=== PATIENT | male | born 1955 | race Caucasian/White ===

== ENCOUNTER 2020-01-06 17:07 | Emergency (ER) | payer MEDICARE, SELFPAY ==
[2020-01-06 17:07] VITALS: BP 153/72; PULSE 72; RESP 20; TEMP 37; O2SAT 99; BMI 42.7
--- NOTE | 2020-01-06 17:07 | ECG_ITS ---
APPROVED REPORT Exam: Resting ECG HR:64 bpm ECG Measurements Heart Rate 64 AXES MD 186 P 10 QRSd 142 QRS 124 QT 454 T -13 QTc 468 <Conclusion> Normal sinus rhythm Right bundle branch block Left posterior fascicular block Bifascicular block Abnormal ECG Electronically signed by : Estrada Gar, 01/10/2020 17:16:01
--- NOTE | 2020-01-06 17:17 | XR_ITS ---
PROCEDURE: XR CHEST 2V CLINICAL HISTORY: CP Chest pain COMPARISON: No exams were available for comparison FINDINGS: Prior median sternotomy. Minimal atelectatic or fibrotic changes in the lingula No acute bony abnormalities. IMPRESSION: The minimal atelectatic or fibrotic changes in the lingula Dictated by: Bairon Raphael MD 01/06/2020 17:52 Electronically signed by Bairon Raphael MD in [place] 01/06/2020 17:52
--- NOTE | 2020-01-06 17:26 | PC.NURSE ---
pt to rad
[2020-01-06 17:28] LABS: Basophils % 0.7 % (0.1-2.0); Chloride 100 mmol/L (98-107); Eosinophils # 0.1 K/mm3 (0.0-0.4); Eosinophils % 2.4 % (0.1-12.0); Hematocrit 40.4 % (42.0-52.0); Hemoglobin 13.6 g/dL (14.1-18.0); Lymphocytes # 1.3 K/mm3 (0.7-4.5); Lymphocytes % 22.6 % (10-50); Mean Corpuscular HGB Conc 33.6 g/dL (31.8-35.4); Mean Corpuscular Hemoglobin 30.1 pg (27.0-31.2); Mean Corpuscular Volume 89.4 fl (80-94); Mean Platelet Volume 9.1 fl (7.4-10.4); Monocytes # 0.4 K/mm3 (0.1-1.0); Monocytes % 6.6 % (1.7-9.3); Neutrophils # 3.8 K/mm3 (1.8-7.8); Neutrophils % 67.8 % (37.0-80.0); Platelet Count 176 K/mm3 (142-424); Potassium 5.1 mmoL/L (3.5-5.1); Red Blood Count 4.52 M/mm3 (4.60-6.20); Red Cell Distribution Width 16.8 % (11.5-17.5); Sodium 135 mmol/L (136-145); White Blood Count 5.6 K/mm3 (4.8-10.8)
[2020-01-06 17:31] LABS: Blood Urea Nitrogen 27 mg/dl (9-20); Creatinine Clearance Estimated 47 mL/min (50-200); Estimated Glomerular Filt Rate 38 ml/min (>60); GFR (African American) 46 ML/MIN (>60)
[2020-01-06 17:32] LABS: Anion Gap 14.1 mEq/L (5-15); Calcium 9.5 mg/dl (8.4-10.2); Carbon Dioxide 26 mmol/L (22.0-30.0); Glucose 321 mg/dl (74-100)
--- NOTE | 2020-01-06 17:32 | PC.NURSE ---
Pt returned from rad
[2020-01-06 17:45] LABS: Troponin I < 0.01 ng/ml (0.00-0.034)
[2020-01-06 18:11] VITALS: BP 130/56; PULSE 58; O2SAT 98
[2020-01-06 18:45] VITALS: BP 139/69; PULSE 60; O2SAT 97
--- NOTE | 2020-01-06 18:50 | HMH.EDCP ---
ED Disposition Clinical Impression: Chest pain Disposition: Home, Self-Care Condition on Discharge: Good Instructions: DI for Atypical Chest Pain Additional Instructions: Please follow-up with your primary care provider and disability advocate. Referrals: Bridgette Szymanski [Primary Care Provider] - - Critical Care Critical Care Time: No Attestation: On 01/06/20, the high probability of a clinically significant, sudden or life threatening deterioration of the following system(s) required my full and direct attention, intervention and personal management. The time I documented below is in addition to time spent performing reported procedures but includes the following listed in this critical care notation. Medical Decision Making - Medical Records Medical records reviewed: Yes: I reviewed the patient's medical records. - Harman Inquiry Pt receiving controlled substance: No Vital Signs: 01/06/20 17:07 01/06/20 18:11 01/06/20 18:45 Temperature 98.6 F Temperature Source Oral Pulse Rate [Right] 72 58 L 60 Respiratory Rate 20 Blood Pressure [Right Arm] 153/72 H 130/56 L 139/69 Blood Pressure Mean [Right Arm] 99 80 92 Blood Pressure Source [Right Arm] Automatic Cuff Automatic Cuff Blood Pressure Position [Right Arm] Sitting Sitting 02 Sat by Pulse Oximetry 99 98 97 Oxygen Delivery Method Room Air Room Air - Lab Data Lab results reviewed: Yes: I reviewed the patient's lab results. Lab Results 01/06/20 17:12: WBC 5.6, RBC 4.52 L, Hgb 13.6 L, Hct 40.4 L, MCV 89.4, MCH 30.1, MCHC 33.6, RDW 16.8, Plt Count 176, MPV 9.1, Neut % (Auto) 67.8, Lymph % (Auto) 22.6, [place] % (Auto) 6.6, Eos % (Auto) 2.4, Baso % (Auto) 0.7, Neut # (Auto) 3.8, Lymph # (Auto) 1.3, [place] # (Auto) 0.4, Eos # (Auto) 0.1, Baso # (Auto) 0.0 01/06/20 17:12: Sodium 135 L, Potassium 5.1, Chloride 100, Carbon Dioxide 26, Anion Gap 14.1, BUN 27 H, Creatinine 1.80 H, Estimated Creat Clear 47, Estimated GFR 38 L, Est GFR ( Amer) 46 L, Glucose 321 H, Calcium 9.5, Troponin I < 0.01 Result diagrams: 01/06/20 17:12 01/06/20 17:12 Orders (Tests/Meds): ED MEDICATIONS Discontinued Medications Generic Name Dose Route Start Last Admin Trade Name Mary PRN Reason Stop Dose Admin Aspirin 243 mg 01/06/20 17:18 01/06/20 17:22 Aspirin 81mg Chewable Tablet PO 01/06/20 17:19 243 mg ONCE ONE Administration ORDERS Category Date Time Status Troponin I Q3H Lab 01/06/20 20:30 Ordered Troponin I Q3H Lab 01/06/20 23:30 Ordered ECG Request by /Michelle Stat Y 01/06/20 17:17 Ordered - Radiology Data #1 Image(s): Chest Preliminary Findings: Normal/NAD - ECG Data Tracing #1 I reviewed this ECG and interpreted as documented below: Conduction abnormalities present: RBBB, other (Same on previous EKGs) - ROOPA Score for Non-Stemi Age of Patient: 60-69 years old Heart Rate: 70-89 bpm Systolic Blood Pressure: 120-139 mmhg Serum Creatinine: 0.80-1.19 mg/dl CHF [place] Class: I-No CHF Other Risk Factors: None Non-Stemi Risk Score: 108 Risk Stratification: 1-108 = Low Risk Medical Decision Narrative: Patient second troponin was negative he will follow-up with his disability advocate. Chest Pain HPI - General Chief Complaint: Chest Pain Stated Complaint: Chest Pain Time Seen by Provider: 01/06/20 18:50 Mode of Arrival: Ambulatory Source of Information: Patient Limitations: No Limitations Description of Symptoms (Recalled from ER Triage Doc. by RN): C/O chest pressure and palpitations that have lasted all day. Pt also have soa, nausea, and dizziness assosicated with this pressure. - History of Present Illness HPI narrative: 4-year-old gentleman comes in complaining about chest pain. He states the pain started about 3 days ago and has been intermittent. He describes the pain substernal and sharp non-radiation no shortness of breath. Patient does have an extensive cardiac history he did have a CABG done 2005 3 v
[2020-01-06 19:05] VITALS: BP 145/77; PULSE 60; O2SAT 96
[2020-01-06 19:35] LABS: Troponin I < 0.01 ng/ml (0.00-0.034)
[2020-01-06 19:45] VITALS: BP 118/53; PULSE 79; RESP 16; TEMP 36.7; O2SAT 99
== END 2020-01-06 19:48 | disposition home or self-care (01) ==
PROVIDERS: Emergency Provider Family Medicine; PCP Family Medicine
DX: R07.9 Chest pain, unspecified (principal); R42 Dizziness and giddiness; Z95.1 Presence of aortocoronary bypass graft; Z79.899 Other long term (current) drug therapy; Z88.5 Allergy status to narcotic agent
CPT/HCPCS: 71046; 80048; 84484; 85025; 93005; 99284

== ENCOUNTER 2020-03-13 11:50 | Emergency (ER) | payer MEDICARE, SELFPAY ==
[2020-03-13] VITALS (8 sets, daily range): BP systolic 120–142; BP diastolic 55–73; PULSE 58–73; RESP 18–20; TEMP 36.8; O2SAT 92–99; BMI 40.6
--- NOTE | 2020-03-13 12:07 | PC.NURSE ---
Pt urinating at this time.
[2020-03-13 12:17] LABS: Microscopic, Urine URINE MICROSCOPIC (MICROSCOPIC)
[2020-03-13 12:19] LABS: Appearance,Urine TURBID (Clear); Bilirubin,Urine Negative (Negative); Blood, Urine TRACE-L (Negative); Color,Urine YELLOW (Yellow); Glucose,Urine (UA) 3+ (Negative); Ketones,Urine Negative (Negative); Leukocyte Esterase,Urine 2+ (Negative); Nitrate,Urine POSITIVE (Negative); Protein,Urine 1+ (Negative); Specific Gravity, Urine 1.015 (1.005-1.030); Urobilinogen,Urine 0.2 EU/dl (0.2)
[2020-03-13 12:29] LABS: Bacteria,Urine 3+ /lpf; WBC,Urine TNTC #/hpf (0-3)
--- NOTE | 2020-03-13 12:33 | CT_ITS ---
PROCEDURE: CT ABDOMEN PELVIS WO CON CLINICAL INDICATION: pain Abdominal pain COMPARISON: CT LSWO CT LUMBAR SPINE W/O CONTRAST from 02/25/[address] LUMBAR SPINE W from 02/25/2016 TECHNIQUE: Axial images obtained with sagittal and coronal reformats. All CT scans at the facility use one or more dose reduction, viz: automated exposure control, ma/kV adjustment per patient size (including targeted exams where dose is matched to indication, i.e. head), or iterative reconstruction technique. FINDINGS: LOWER THORAX: There are atelectatic or fibrotic changes in the lung bases. Coronary artery calcifications are noted. ABDOMEN & PELVIS: There is mild splenomegaly at 14 cm. Hyperdensity is present in the gallbladder fossa. The patient reports having a prior cholecystectomy with surgical clips noted in the gallbladder fossa. Hyperdensity could be related to skate stones from the cholecystectomy. Please correlate with patient's surgical history. There is enlargement of the left adrenal gland at 2 cm consistent with an adenoma. There is a small fatty lesion in the right adrenal gland at 5 mm suggesting a myelolipoma. Bilateral renal artery stents are present. Unremarkable appearing pancreas. There is some lobularity of the kidneys. No renal or ureteral calculi or hydronephrosis. No intestinal obstruction or free air. No evidence of appendicitis or diverticulitis. Urinary bladder wall appears slightly thickened. There are degenerative changes in the lumbar spine. IMPRESSION: 1. No acute abdominal or pelvic findings. 2. Splenomegaly 3. There is mild urinary bladder wall thickening which may be seen with incomplete distension, chronic outflow obstruction, or cystitis. Dictated by: Bairon Raphael MD 03/14/2020 05:57 Bairon Raphael MD in [facility] 03/14/2020 05:57
--- NOTE | 2020-03-13 12:33 | CT_ITS ---
PROCEDURE: CT LUMBAR SPINE WO CON CLINICAL HISTORY: pain Low back pain COMPARISON: CT LSWO CT LUMBAR SPINE W from 02/25/2016 TECHNIQUE: Axial images obtained with sagittal and coronal reformats. All CT scans at the facility use one or more dose reduction, viz: automated exposure control, ma/kV adjustment per patient size (including targeted exams where dose is matched to indication, i.e. head), or iterative reconstruction technique. FINDINGS: There is normal alignment. There is mild multilevel lumbar spondylosis. No fracture or dislocation. T12-L1: Unremarkable. L1-L2: Mild degenerative disc disease with minimal bulging disc. L2-L3: Mild degenerative disc disease with minimal bulging disc. L3-L4: Minimal bulging disc. L4-5: Degenerate disc disease with concentric bulging disc along with facet and ligamentum hypertrophy with moderate bilateral lateral recess and foraminal narrowing. Borderline canal stenosis is present at this level. L5-S1: Degenerate disc disease with bulging disc with moderate bilateral foraminal narrowing. Incidental note is made of a fat containing right adrenal nodule at 9 mm consistent with a myelolipoma. Isodense enlargement noted of the left adrenal gland which measures 2 cm consistent with an adenoma. There is an overall increased density of the generalized bony structures nonspecific. Hyperparathyroidism or renal osteodystrophy could cause this finding. IMPRESSION: 1. Multilevel lumbar spondylosis as detailed above. 2. No acute fracture or dislocation. 3. Overall slight increase in the generalized bony density nonspecific Dictated by: Bairon Raphael MD 03/14/2020 05:51 Bairon Raphael MD in [place] 03/14/2020 05:51
--- NOTE | 2020-03-13 13:02 | HMH.EDGENADL ---
ED Disposition Clinical Impression: Acute UTI, Sciatica, left side Disposition: Home, Self-Care Condition on Discharge: Good Instructions: DI for Urinary Tract Infection (UTI) Prescriptions: cephALEXin [Keflex 500mg Cap] 500 mg PO BID 10 Days #20 cap Prescription Printed Referrals: Bridgette Szymanski [Primary Care Provider] - Adalberto Malcolm MD [Staff Physician] - - Critical Care Critical Care Time: No Attestation: On 03/13/20, the high probability of a clinically significant, sudden or life threatening deterioration of the following system(s) required my full and direct attention, intervention and personal management. The time I documented below is in addition to time spent performing reported procedures but includes the following listed in this critical care notation. Medical Decision Making - Medical Records Medical records reviewed: Yes: I reviewed the patient's medical records. - Harman Inquiry Pt receiving controlled substance: Yes Harman was queried for this patient: No Risks and benefits of using a controlled substance: were discussed with pt by me Vital Signs: 03/13/20 11:53 03/13/20 12:30 03/13/20 13:30 Temperature 98.3 F Temperature Source Oral Pulse Rate [Left Radial] 73 64 68 Respiratory Rate 18 Blood Pressure [Right Arm] 142/73 H 120/58 L Blood Pressure Mean [Right Arm] 96 78 Blood Pressure Source [Right Arm] Automatic Cuff Automatic Cuff Blood Pressure Position [Right Arm] Sitting Sitting 02 Sat by Pulse Oximetry 99 92 L 97 Oxygen Delivery Method Room Air Room Air Room Air 03/13/20 14:02 03/13/20 14:16 03/13/20 14:30 Temperature Temperature Source Pulse Rate [Left Radial] 60 58 L 62 Respiratory Rate 20 Blood Pressure [Right Arm] 127/55 L 127/55 L 124/56 L Blood Pressure Mean [Right Arm] 79 79 78 Blood Pressure Source [Right Arm] Automatic Cuff Automatic Cuff Automatic Cuff Blood Pressure Position [Right Arm] Sitting Sitting Sitting 02 Sat by Pulse Oximetry 94 L 96 96 Oxygen Delivery Method Room Air Room Air Room Air - Lab Data Lab Results 03/13/20 12:15: Urine Color Yellow, Urine Appearance Turbid, Urine pH 6.0, Ur Specific [place] 1.015, Urine Protein 1+, Urine Glucose (UA) 3+, Urine Ketones Negative, Urine Blood Trace-l, Urine Nitrate Positive, Urine Bilirubin Negative, Urine Urobilinogen 0.2, Ur Leukocyte Esterase 2+ A, Urine WBC Tntc, Urine Bacteria 3+ 03/13/20 12:47: WBC 5.3, RBC 4.05 L, Hgb 12.1 L, Hct 38.3 L, MCV 94.7 H, MCH 30.0, MCHC 31.7 L, RDW 16.0, Plt Count 164, MPV 9.0, Neut % (Auto) 74.4, Lymph % (Auto) 16.8, [place] % (Auto) 6.1, Eos % (Auto) 2.0, Baso % (Auto) 0.6, Neut # (Auto) 3.9, Lymph # (Auto) 0.9, [place] # (Auto) 0.3, Eos # (Auto) 0.1, Baso # (Auto) 0.0 03/13/20 12:47: Sodium 138, Potassium 4.6, Chloride 105, Carbon Dioxide 25, Anion Gap 12.6, BUN 21 H, Creatinine 1.30 H, Estimated Creat Clear 113, Estimated GFR 56 L, Est GFR ( Amer) 68, Glucose 302 H, Calcium 8.9 Result diagrams: 03/13/20 12:47 03/13/20 12:47 Orders (Tests/Meds): ED MEDICATIONS Discontinued Medications Generic Name Dose Route Start Last Admin Trade Name Mary PRN Reason Stop Dose Admin Ceftriaxone Sodium 1 gm/ 50 mls @ 100 mls/hr 03/13/20 14:40 03/13/20 14:46 Sodium Chloride IV 03/13/20 15:09 100 mls/hr ONCE ONE Administration Protocol Morphine Sulfate 4 mg 03/13/20 12:32 03/13/20 13:29 Morphine 4mg/Ml Syringe IV 03/13/20 12:33 4 mg ONCE ONE Administration Ondansetron HCl 4 mg 03/13/20 12:32 03/13/20 13:29 Zofran 4mg/2ml Vial IV 03/13/20 12:33 4 mg ONCE ONE Administration ORDERS Category Date Time Status CT abdomen pelvis wo con Stat Cat Scan 03/13/20 12:[address] lumbar spine wo con Stat Cat Scan 03/13/20 12:33 Taken Urine Culture Stat Micro 03/13/20 12:15 Received - CT Data CT Scan: Abdomen, Pelvis, L-Spine Time Received: 15:12 Findings Narrative: CT of abdomen/pelvis did not show any acu
[2020-03-13 13:19] LABS: Basophils % 0.6 % (0.1-2.0); Eosinophils # 0.1 K/mm3 (0.0-0.4); Hematocrit 38.3 % (42.0-52.0); Hemoglobin 12.1 g/dL (14.1-18.0); Lymphocytes # 0.9 K/mm3 (0.7-4.5); Lymphocytes % 16.8 % (10-50); Mean Corpuscular HGB Conc 31.7 g/dL (31.8-35.4); Mean Corpuscular Volume 94.7 fl (80-94); Monocytes # 0.3 K/mm3 (0.1-1.0); Monocytes % 6.1 % (1.7-9.3); Neutrophils # 3.9 K/mm3 (1.8-7.8); Neutrophils % 74.4 % (37.0-80.0); Platelet Count 164 K/mm3 (142-424); Red Blood Count 4.05 M/mm3 (4.60-6.20); White Blood Count 5.3 K/mm3 (4.8-10.8)
[2020-03-13 13:24] LABS: Chloride 105 mmol/L (98-107); Potassium 4.6 mmoL/L (3.5-5.1); Sodium 138 mmol/L (136-145)
[2020-03-13 13:27] LABS: Anion Gap 12.6 mEq/L (5-15); Blood Urea Nitrogen 21 mg/dl (9-20); Calcium 8.9 mg/dl (8.4-10.2); Carbon Dioxide 25 mmol/L (22.0-30.0); Creatinine Clearance Estimated 113 mL/min (50-200); Estimated Glomerular Filt Rate 56 ml/min (>60); GFR (African American) 68 ML/MIN (>60); Glucose 302 mg/dl (74-100)
== END 2020-03-13 15:22 | disposition home or self-care (01) ==
PROVIDERS: Emergency Provider Emergency Medicine; PCP Family Medicine
DX: N30.00 Acute cystitis without hematuria (principal); M54.32 Sciatica, left side; E11.65 Type 2 diabetes mellitus with hyperglycemia; Z79.4 Long term (current) use of insulin; Z88.8 Allergy status to other drugs, medicaments and biological substances; Z79.899 Other long term (current) drug therapy
CPT/HCPCS: 72131; 74176; 80048; 81001; 85025; 87086; 87088; 87186; 96365; 96375; 99284; J2405

== ENCOUNTER → 2020-05-12 16:28 | Outpatient (CLI) | payer MEDICARE, SELFPAY ==
[2020-05-12 18:26] LABS: Prostate Specific Ag Screen 0.1 ng/ml (0.0-4.0)
== END ==
PROVIDERS: Visit Provider Urology
DX: Z12.5 Encounter for screening for malignant neoplasm of prostate (principal)
CPT/HCPCS: 36415; G0103

== ENCOUNTER 2020-06-05 13:39 | Emergency (ER) | payer MEDICARE, SELFPAY ==
--- NOTE | 2020-06-05 13:37 | ECG_ITS ---
APPROVED REPORT Exam: Resting ECG HR:65 bpm ECG Measurements Heart Rate 65 AXES DC 182 P 11 QRSd 128 QRS 118 QT 454 T 28 QTc 472 Conclusion Sinus rhythm with premature atrial complexes with aberrant conduction Right bundle branch block Abnormal ECG Electronically signed by : Estrada Gar, 06/06/2020 07:31:23
[2020-06-05 13:39] VITALS: BP 169/76; PULSE 69; RESP 14; TEMP 36.6; O2SAT 99; BMI 43.1
[2020-06-05 13:40] VITALS: BMI 43.1
--- NOTE | 2020-06-05 13:41 | XR_ITS ---
PROCEDURE: XR CHEST 2V CLINICAL HISTORY: chest pain COMPARISON: CR XR CHEST 2V from 01/06/[address] ABDOMEN PELVIS WO CON from 03/13/2020 FINDINGS: Prior CABG. Normal heart size. There is increased density in the right lung base medially. This was present on 01/06/2020 and may represent a prominent pericardial fat pad as noted on a prior abdomen CT which cover this region. No lobar consolidation or collapse. No acute bony findings. IMPRESSION: As above, no acute finding Dictated by: Bairon Raphael MD 06/05/2020 14:37 Bairon Raphael MD in [place] 06/05/2020 14:37
--- NOTE | 2020-06-05 13:44 | HMH.EDGENADL ---
ED Disposition Clinical Impression: Chest pain Qualifiers: Chest pain type: unspecified Qualified Code(s): R07.9 - Chest pain, unspecified Disposition: Home, Self-Care Condition on Discharge: Good - Critical Care Critical Care Time: No Attestation: On , the high probability of a clinically significant, sudden or life threatening deterioration of the following system(s) required my full and direct attention, intervention and personal management. The time I documented below is in addition to time spent performing reported procedures but includes the following listed in this critical care notation. Medical Decision Making - Medical Records Medical records reviewed: Yes: I reviewed the patient's medical records. - Harman Inquiry Pt receiving controlled substance: No Vital Signs: 06/05/20 13:39 06/05/20 14:01 06/05/20 14:09 Temperature 97.8 F Temperature Source Oral Pulse Rate [Left Radial] 69 63 63 Respiratory Rate 14 16 Blood Pressure [Right Arm] 169/76 H 144/70 H 144/70 H Blood Pressure Mean [Right Arm] 107 94 94 Blood Pressure Source [Right Arm] Automatic Cuff Automatic Cuff Automatic Cuff Blood Pressure Position [Right Arm] Sitting Sitting Sitting 02 Sat by Pulse Oximetry 99 95 95 Oxygen Delivery Method Room Air Room Air Room Air 06/05/20 16:33 06/05/20 17:50 Temperature Temperature Source Pulse Rate [Left Radial] 60 59 L Respiratory Rate 60 H Blood Pressure [Right Arm] 153/70 H 154/69 H Blood Pressure Mean [Right Arm] 97 97 Blood Pressure Source [Right Arm] Automatic Cuff Automatic Cuff Blood Pressure Position [Right Arm] Sitting 02 Sat by Pulse Oximetry 98 96 Oxygen Delivery Method Room Air Room Air - Lab Data Lab results reviewed: Yes: I reviewed the patient's lab results. Lab Results 06/05/20 13:48: WBC 5.3, RBC 4.25 L, Hgb 12.0 L, Hct 38.8 L, MCV 91.3, MCH 28.3, MCHC 31.0 L, RDW 16.8, Plt Count 210, MPV 8.6, Neut % (Auto) 71.5, Lymph % (Auto) 19.9, [place] % (Auto) 5.7, Eos % (Auto) 2.3, Baso % (Auto) 0.6, Neut # (Auto) 3.8, Lymph # (Auto) 1.1, [place] # (Auto) 0.3, Eos # (Auto) 0.1, Baso # (Auto) 0.0 06/05/20 13:48: Sodium 137, Potassium 4.5, Chloride 104, Carbon Dioxide 27, Anion Gap 10.5, BUN 25 H, Creatinine 1.30 H, Estimated Creat Clear 65, Estimated GFR 56 L, Est GFR ( Amer) 68, Glucose 253 H, Calcium 8.8, Troponin I < 0.01 06/05/20 16:57: Troponin I < 0.01 06/05/20 16:57: Total Bilirubin 0.8, Direct Bilirubin 0.3, Conjugated Bilirubin 0.0, Indirect Bilirubin 0.5, Unconjugated Bilirubin 0.5, AST 31, ALT 17, Alkaline Phosphatase 82, Total Protein 6.9, Albumin 3.8 Result diagrams: 06/05/20 13:48 06/05/20 13:48 Orders (Tests/Meds): ED MEDICATIONS Discontinued Medications Generic Name Dose Route Start Last Admin Trade Name Freq PRN Reason Stop Dose Admin Aspirin 324 mg 06/05/20 13:40 06/05/20 14:21 Aspirin 81mg Chewable Tablet PO 06/05/20 13:41 Not Given ONCE ONE Aspirin 243 mg 06/05/20 14:20 06/05/20 14:21 Aspirin 81mg Chewable Tablet PO 06/05/20 14:21 243 mg ONCE ONE Administration ORDERS Category Date Time Status Troponin I Q3H Lab 06/05/20 19:45 Ordered Medical Decision Narrative: 64-year-old male with cardiac history presenting with chest pain. Nontoxic, afebrile, hemodynamically stable, oxygenating well on room air. EKG without acute arrhythmia or ischemia. Chest x-ray negative for acute disease. Initial and repeat troponin were undetectable. White blood cell count, glucose, electrolytes, transaminases are nonactionable. Patient asymptomatic at discharge. Will follow up with PCP General Adult HPI - General Stated complaint: Chest pain Time Seen by Provider: 06/05/20 13:44 - History of Present Illness HPI narrative: This is a 64-year-old male with an extensive cardiac history status post CABG x3 and subsequent blocked vessel presenting with intermittent chest pain and palpitations, particularly worse today and ma
--- NOTE | 2020-06-05 14:00 | PC.NURSE ---
Pt to radiology
[2020-06-05 14:01] VITALS: BP 144/70; PULSE 63; O2SAT 95
[2020-06-05 14:09] VITALS: BP 144/70; PULSE 63; RESP 16; O2SAT 95
[2020-06-05 14:53] LABS: Chloride 104 mmol/L (98-107); Potassium 4.5 mmoL/L (3.5-5.1); Sodium 137 mmol/L (136-145)
[2020-06-05 14:55] LABS: Basophils % 0.6 % (0.1-2.0); Eosinophils # 0.1 K/mm3 (0.0-0.4); Eosinophils % 2.3 % (0.1-12.0); Hematocrit 38.8 % (42.0-52.0); Lymphocytes # 1.1 K/mm3 (0.7-4.5); Lymphocytes % 19.9 % (10-50); Mean Corpuscular Hemoglobin 28.3 pg (27.0-31.2); Mean Corpuscular Volume 91.3 fl (80-94); Mean Platelet Volume 8.6 fl (7.4-10.4); Monocytes # 0.3 K/mm3 (0.1-1.0); Monocytes % 5.7 % (1.7-9.3); Neutrophils # 3.8 K/mm3 (1.8-7.8); Neutrophils % 71.5 % (37.0-80.0); Platelet Count 210 K/mm3 (142-424); Red Blood Count 4.25 M/mm3 (4.60-6.20); Red Cell Distribution Width 16.8 % (11.5-17.5); White Blood Count 5.3 K/mm3 (4.8-10.8)
[2020-06-05 14:56] LABS: Blood Urea Nitrogen 25 mg/dl (9-20); Creatinine Clearance Estimated 65 mL/min (50-200); Estimated Glomerular Filt Rate 56 ml/min (>60); GFR (African American) 68 ML/MIN (>60)
[2020-06-05 14:57] LABS: Anion Gap 10.5 mEq/L (5-15); Calcium 8.8 mg/dl (8.4-10.2); Carbon Dioxide 27 mmol/L (22.0-30.0); Glucose 253 mg/dl (74-100)
[2020-06-05 15:13] LABS: Troponin I < 0.01 ng/ml (0.00-0.034)
[2020-06-05 16:33] VITALS: BP 153/70; PULSE 60; O2SAT 98
--- NOTE | 2020-06-05 16:34 | PC.NURSE ---
Pt provided a blanket at this time. States that he feels like there is a fluttering in his chest. MD aware. Will continue to monitor.
--- NOTE | 2020-06-05 16:42 | PC.NURSE ---
Lab states that they are running the liver panel at this time and they will be down to re draw troponin
[2020-06-05 17:50] VITALS: BP 154/69; PULSE 59; RESP 60; O2SAT 96
[2020-06-05 17:53] LABS: Troponin I < 0.01 ng/ml (0.00-0.034)
[2020-06-05 18:06] LABS: Alanine Aminotransferase 17 U/L (12-78); Aspartate Amino Transferase 31 U/L (17-59); Bilirubin,Unconjugated 0.5 mg/dL (0.0-1.1)
[2020-06-05 18:07] LABS: Albumin Level 3.8 g/dl (3.5-5.0); Alkaline Phosphatase 82 U/L (38-126); Bilirubin,Direct 0.3 mg/dl (0.0-0.4); Bilirubin,Indirect 0.5 mg/dL (0.0-0.9); Bilirubin,Total 0.8 mg/dl (0.2-1.3); Total Protein,Serum 6.9 g/dl (6.3-8.2)
--- NOTE | 2020-06-05 18:35 | PC.NURSE ---
MD speaking with pt at this time.
[2020-06-05 18:46] VITALS: BP 136/64; PULSE 60; RESP 19; TEMP 36.6; O2SAT 98
== END 2020-06-05 18:47 | disposition home or self-care (01) ==
PROVIDERS: Emergency Provider Physician Assistant; PCP Family Medicine
DX: R07.9 Chest pain, unspecified (principal); E11.65 Type 2 diabetes mellitus with hyperglycemia; I25.10 Atherosclerotic heart disease of native coronary artery without angina pectoris; Z95.1 Presence of aortocoronary bypass graft; I10 Essential (primary) hypertension; E78.5 Hyperlipidemia, unspecified; G45.8 Other transient cerebral ischemic attacks and related syndromes; Z79.899 Other long term (current) drug therapy
CPT/HCPCS: 36415; 71046; 80048; 80076; 84484; 85025; 93005; 99283

== ENCOUNTER → 2021-01-11 14:03 | Outpatient (CLI) | payer MEDICARE, SELFPAY ==
[2021-01-11 14:23] LABS: Basophils # 0.1 K/mm3 (0-0.2); Basophils % 0.7 % (0.1-2.0); Eosinophils # 0.2 K/mm3 (0.0-0.4); Eosinophils % 2.6 % (0.1-12.0); Hematocrit 38.9 % (42.0-52.0); Lymphocytes % 15.4 % (10-50); Mean Corpuscular HGB Conc 33.4 g/dL (31.8-35.4); Mean Corpuscular Hemoglobin 28.9 pg (27.0-31.2); Mean Corpuscular Volume 86.6 fl (80-94); Mean Platelet Volume 8.9 fl (7.4-10.4); Monocytes # 0.3 K/mm3 (0.1-1.0); Monocytes % 4.7 % (1.7-9.3); Neutrophils # 5.1 K/mm3 (1.8-7.8); Neutrophils % 76.6 % (37.0-80.0); Platelet Count 187 K/mm3 (142-424); Red Blood Count 4.49 M/mm3 (4.60-6.20); Red Cell Distribution Width 16.4 % (11.5-17.5); White Blood Count 6.7 K/mm3 (4.8-10.8)
[2021-01-11 14:33] LABS: Alanine Aminotransferase 17 U/L (12-78); Albumin Level 4.1 g/dl (3.5-5.0); Albumin/Globulin Ratio 1.4 (1.1-1.8); Alkaline Phosphatase 113 U/L (38-126); Anion Gap 16.6 mEq/L (5-15); Aspartate Amino Transferase 28 U/L (17-59); Bilirubin,Total 1.4 mg/dl (0.2-1.3); Blood Urea Nitrogen 21 mg/dl (9-20); Carbon Dioxide 25 mmol/L (22.0-30.0); Chloride 102 mmol/L (98-107); Cholesterol 124 mg/dl (140-200); Estimated Glomerular Filt Rate 47 ml/min (>60); GFR (African American) 57 ML/MIN (>60); Globulin 2.9 g/dL (1.3-3.2); Glucose 218 mg/dl (74-100); HDL Cholesterol 25 mg/dl (40-60); Potassium 4.6 mmoL/L (3.5-5.1); Sodium 139 mmol/L (136-145); Triglycerides 169 mg/dl (30-150); VLDL Cholesterol 34 mg/dL (0-40)
[2021-01-11 14:44] LABS: Direct LDL Cholesterol 71.26 mg/dL (100-129)
[2021-01-11 14:45] LABS: 25-OH Vitamin D, Total 19.3 ng/mL (30-100)
[2021-01-11 14:55] LABS: Free T4 (Free Thyroxine) 1.21 ng/dl (0.78-2.19)
[2021-01-11 15:06] LABS: Hemoglobin A1C 6.5 % (4.0-6.0)
[2021-01-11 15:10] LABS: Thyroid Stimulating Hormone 2.05 uIU/mL (0.465-4.68)
== END ==
PROVIDERS: Visit Provider Physician Assistant
DX: E11.9 Type 2 diabetes mellitus without complications (principal); E55.9 Vitamin D deficiency, unspecified; R07.9 Chest pain, unspecified; R53.83 Other fatigue; Z79.4 Long term (current) use of insulin
CPT/HCPCS: 80053; 80061; 82043; 82306; 83036; 84439; 84443; 85025

== ENCOUNTER 2021-04-16 13:31 | Emergency (ER) | payer MEDICARE, SELFPAY ==
[2021-04-16 13:44] VITALS: BP 140/68; PULSE 76; RESP 20; TEMP 36.6; O2SAT 97; BMI 42.3
[2021-04-16 14:55] VITALS: BP 140/68; PULSE 76; RESP 20; TEMP 36.6; O2SAT 97; BMI 42.3
--- NOTE | 2021-04-16 15:44 | HMH.EDUTC ---
[facility] Disposition Clinical Impression: Sciatic leg pain Disposition: Home, Self-Care Condition on Discharge: Good Instructions: Sciatica, DI for Sciatica, DI for Back Pain With Sciatica Additional Instructions: *Ibuprofen sol 6 hours with meal as needed for pain/inflammation if you can take it *Not additional anti-inflammatory like motrin, aleve, advil with the above amount of ibuprofen. You can still take Tylenol every 4 hours as needed if you need something else for pain *Ice 20 minutes every 2 hours for the first 48 hours after the initial injury followed by moist heat every 20 minutes 3-4 times a day to affected area *Muscle relaxer every 12 hours as needed for muscle spasms but remember, it WILL cause drowsiness You cannot take it and drive, operate machinery or care for small children. *Keep this area active, no movement leads to more stiffness, However take it easy and avoid heavy lifting pushing or pulling *Follow up with you family doctor if no improvement for further treatment Return if needed Straight to ER if any life threatening symptoms Prescriptions: methocarbamoL [Methocarbamol 500mg Tablet] 500 mg PO BID PRN 30 Days #60 tab PRN Reason: Muscle Spasm Transmission Status: Received by [id number] Referrals: Elaina Carvalho PA [Primary Care Provider] - As needed Time of Disposition: 16:06 Medical Decision Making - Harman Inquiry Pt receiving controlled substance: No Harman was queried for this patient: No Vital Signs: 04/16/21 13:44 04/16/21 14:55 04/16/21 16:05 Temperature 97.8 F 97.8 F 97.8 F Temperature Source Oral Oral Pulse Rate 76 Pulse Rate [Left Radial] 76 76 Respiratory Rate 20 20 20 Blood Pressure 140/68 Blood Pressure [Right Arm] 140/68 140/68 Blood Pressure Mean [Right Arm] 92 92 Blood Pressure Source [Right Arm] Automatic Cuff Automatic Cuff Blood Pressure Position [Right Arm] Sitting Sitting 02 Sat by Pulse Oximetry 97 97 Oxygen Delivery Method Room Air Room Air Orders (Tests/Meds): ED MEDICATIONS Discontinued Medications Generic Name Dose Route Start Last Admin Trade Name Freq PRN Reason Stop Dose Admin Ketorolac Tromethamine 30 mg 04/16/21 15:56 04/16/21 16:04 Ketorolac 60mg/2ml Vial IM 04/16/21 15:57 30 mg ONCE ONE Administration Methylprednisolone Sodium Succinate 125 mg 04/16/21 15:56 04/16/21 16:04 Methylprednisolone Sod Succ 125mg Vial IM 04/16/21 15:57 125 mg ONCE ONE Administration Medical Decision Narrative: Discussed xray due to patient age and complaints Patient declined states that he just had some xrays and CT scan not too long ago and did not want to have them done today Medication discussed with Pharmacy [facility] HPI - General Stated complaint: lft hip and leg pain Time Seen by Provider: 04/16/21 15:44 Mode of Arrival: Ambulatory Source of Information: Patient Limitations: No Limitations Description of Symptoms (Recalled from Triage Doc. by RN): PATIENT C/O SEVERE PAIN TO LEFT HIP THAT RADIATES DOWN LEG THAT STARTED YESTERDAY. HE SAYS HE BELIEVES IT IS SCIATICA HEENT Symptoms (Recalled from RN notes): No Resp Symptoms (Recalled from RN notes): No Skin Symptoms (Recalled from RN notes): No MS Symptoms (Recalled from RN notes): Yes Functional Status (Recalled from RN notes): WNL - History of Present Illness Provider Complaint: Patient states that he has a history of sciatica States that yesterday he started with the pain in his left hip/buttock area that radiates down in to his left upper leg and hurts when he walks or tries to sit on that side States that feels like it did when his sciatica flares up Denies loss of control of bowel or bladder - Related Data Home Medications Medication Instructions Recorded Confirmed Amlodipine Besylate [Amlodipine 5 mg PO DAILY 06/19/19 02/08/21 5mg tab] Isosorbide Dinitrate 30 mg PO TID 06/19/19 02/08/21 Levothyroxine Sodium 75 mcg PO DAILY 06/19/19
[2021-04-16 16:05] VITALS: BP 140/68; PULSE 76; RESP 20; TEMP 36.6; O2SAT 97
== END 2021-04-16 16:25 | disposition home or self-care (01) ==
LOC: ER 13:48 → UTC 13:48
PROVIDERS: Emergency Provider Nurse Practitioner; PCP Physician Assistant
DX: M54.42 Lumbago with sciatica, left side (principal); I50.9 Heart failure, unspecified; I25.10 Atherosclerotic heart disease of native coronary artery without angina pectoris; E11.9 Type 2 diabetes mellitus without complications; E78.5 Hyperlipidemia, unspecified; I10 Essential (primary) hypertension; Z79.899 Other long term (current) drug therapy
CPT/HCPCS: G0463; 96372; 99202

== ENCOUNTER 2021-05-12 10:25 | Emergency (ER) | payer MEDICARE, SELFPAY ==
[2021-05-12 10:33] VITALS: PULSE 86; RESP 20; TEMP 36.8; O2SAT 99; BMI 42.7
--- NOTE | 2021-05-12 10:44 | XR_ITS ---
PROCEDURE INFORMATION: Exam: XR Left Hip Exam date and time: 05/12/2021 10:44 AM Age: 65 years old Clinical indication: Hip pain; Left hip; Additional info: Pain- no injury TECHNIQUE: Imaging protocol: XR Left hip. Views: 2 or 3 views hip with pelvis when performed. COMPARISON: CT ABDOMEN PELVIS WO CON 03/13/2020 12:54 PM FINDINGS: Bones/joints: No acute fracture or malalignment. Mild degenerative changes of the bilateral hips. Soft tissues: Unremarkable. IMPRESSION: No acute fracture or malalignment.
[2021-05-12 10:46] VITALS: BP 175/77; PULSE 87; RESP 22; TEMP 36.9; O2SAT 97; BMI 42.7
--- NOTE | 2021-05-12 11:45 | HMH.EDUTC ---
[facility] Disposition Clinical Impression: Left hip pain Osteoarthritis of left hip Qualifiers: Osteoarthritis type: unspecified Qualified Code(s): M16.12 - Unilateral primary osteoarthritis, left hip Radiculopathy Qualifiers: Spinal region: unspecified Qualified Code(s): M54.10 - Radiculopathy, site unspecified Disposition: Home, Self-Care Condition on Discharge: Good Instructions: Osteoarthritis, DI for Osteoarthritis, DI for Hip Pain Additional Instructions: Rest the extremity, Elevate the extremity as tolerated while you are resting. Take the steroids as directed. Don't start them until tomorrow since you had the shot here. Watch your blood sugars closely and follow your diabetic diet closely while you are on it. Follow up with Dr. Hunt (orthopedics). I put in a referral but you need to call his office and schedule an appointment. You could also follow up the orthopedic doctor that you are already established with. If you do go see that one, you should get a copy of your x-ray from medical records and take it with you because they may not be able to look up our x-ray images. Follow up with your regular doctor. GO TO THE ER FOR ANY WORSENING SYMPTOMS Prescriptions: methylPREDNISolone [Medrol] 4 mg PO DIRECTED 6 Days #21 packet Transmission Status: Received by [id number] Referrals: Elaina Carvalho PA [Primary Care Provider] - Imtiaz Hunt MD [Staff Physician] - Time of Disposition: 11:53 Medical Decision Making - Medical Records Medical records reviewed: No: I reviewed the patient's medical records. - Harman Inquiry Pt receiving controlled substance: No Vital Signs: 05/12/21 10:33 05/12/21 10:46 05/12/21 12:15 Temperature 98.2 F 98.4 F 98 F Temperature Source Oral Oral Pulse Rate 86 Pulse Rate [Left Radial] 86 87 Respiratory Rate 20 22 16 Blood Pressure 134/72 Blood Pressure [Right Arm] 175/77 H Blood Pressure Mean [Right Arm] 109 02 Sat by Pulse Oximetry 99 97 Oxygen Delivery Method Room Air Orders (Tests/Meds): ED MEDICATIONS Discontinued Medications Generic Name Dose Route Start Last Admin Trade Name Freq PRN Reason Stop Dose Admin Ketorolac Tromethamine 30 mg 05/12/21 11:48 05/12/21 12:03 Ketorolac 60mg/2ml Vial IM 05/12/21 11:49 30 mg ONCE ONE Administration Methylprednisolone Sodium Succinate 125 mg 05/12/21 11:48 05/12/21 12:03 Methylprednisolone Sod Succ 125mg Vial IM 05/12/21 11:49 125 mg ONCE ONE Administration - Radiology Data #1 Image(s): Hip Image Reviewed: Yes I reviewed the patient's radiology image, Yes I have reviewed radiologist's interpretation Preliminary Findings: Normal/NAD, No Fracture Seen PROCEDURE INFORMATION: Exam: XR Left Hip Exam date and time: 05/12/2021 10:44 AM Age: 65 years old Clinical indication: Hip pain; Left hip; Additional info: Pain- no injury TECHNIQUE: Imaging protocol: XR Left hip. Views: 2 or 3 views hip with pelvis when performed. COMPARISON: CT ABDOMEN PELVIS WO CON 03/13/2020 12:54 PM FINDINGS: Bones/joints: No acute fracture or malalignment. Mild degenerative changes of the bilateral hips. Soft tissues: Unremarkable. IMPRESSION: No acute fracture or malalignment. [facility] HPI - General Stated complaint: left hip pain, no accident Time Seen by Provider: 05/12/21 11:45 Mode of Arrival: Ambulatory Source of Information: Patient Limitations: No Limitations Description of Symptoms (Recalled from Triage Doc. by RN): pt c/o severe pain in his L hip. The pain is sharp in nature. pain does not radiate or feel like sciatica according to the pt. HEENT Symptoms (Recalled from RN notes): No Resp Symptoms (Recalled from RN notes): No Skin Symptoms (Recalled from RN notes): No MS Symptoms (Recalled from RN notes): Yes (L hip pain) Functional Status (Recalled from RN notes)
[2021-05-12 12:15] VITALS: BP 134/72; PULSE 86; RESP 16; TEMP 36.6
== END 2021-05-12 12:18 | disposition home or self-care (01) ==
PROVIDERS: Emergency Provider Nurse Practitioner Family; PCP Physician Assistant
DX: M16.12 Unilateral primary osteoarthritis, left hip (principal); M54.10 Radiculopathy, site unspecified; E11.9 Type 2 diabetes mellitus without complications; I10 Essential (primary) hypertension; E78.5 Hyperlipidemia, unspecified; I50.9 Heart failure, unspecified; Z79.899 Other long term (current) drug therapy
CPT/HCPCS: 73502; 96372; 99202; G0463

== ENCOUNTER → 2021-05-14 14:32 | Outpatient (CLI) | payer MEDICARE, SELFPAY ==
[2021-05-14 17:35] LABS: Prostate Specific Ag Screen 0.4 ng/ml (0.0-4.0)
== END ==
PROVIDERS: Visit Provider Urology
DX: Z12.5 Encounter for screening for malignant neoplasm of prostate (principal); N39.0 Urinary tract infection, site not specified; B96.1 Klebsiella pneumoniae [K. pneumoniae] as the cause of diseases classified elsewhere
CPT/HCPCS: 36415; 87086; 87088; 87186; G0103

== ENCOUNTER → 2021-05-28 15:55 | Outpatient (CLI) | payer MEDICARE, SELFPAY | PROVIDERS: PCP Physician Assistant; Visit Provider Nurse Practitioner | DX: U07.1 COVID-19 (principal) | CPT/HCPCS: C9803; U0003; U0005 ==

== ENCOUNTER 2021-06-02 13:40 | Emergency (ER) | payer MEDICARE, SELFPAY ==
[2021-06-02 13:41] VITALS: BP 142/64; PULSE 73; RESP 20; TEMP 36.6; O2SAT 92; BMI 41.3
--- NOTE | 2021-06-02 14:02 | XR_ITS ---
PROCEDURE INFORMATION: Exam: XR Chest Exam date and time: 06/02/2021 2:02 PM Age: 65 years old Clinical indication: Shortness of breath; Additional info: SOA, weakness, covid 19 TECHNIQUE: Imaging protocol: XR of the chest. Views: 1 view. COMPARISON: CR XR CHEST 2V 06/05/2020 1:52 PM FINDINGS: Tubes, catheters and devices: There are sternal wires consistent with previous sternotomy incision. Lungs: Diffuse patchy airspace opacities noted throughout the lungs bilaterally. Commonly reported imaging features of COVID-19 pneumonia are present. Pleural spaces: Unremarkable. No pleural effusion. No pneumothorax. Heart/Mediastinum: Heart demonstrates mild diffuse enlargement. Bones/joints: Unremarkable. IMPRESSION: 1. Diffuse patchy airspace opacities noted throughout the lungs bilaterally. 2. Commonly reported imaging features of COVID-19 pneumonia are present. Other processes such as influenza pneumonia and organizing pneumonia, as can be seen with drug toxicity and connective tissue disease, can cause a similar imaging pattern. (Reference: Scott) 3. Heart demonstrates mild diffuse enlargement. REFERENCES: Scott Thomas et al., Rad[employer] Society [place] Expert Consensus Statement on Reporting Chest CT Findings Related to COVID-19. Endorsed by the Society of Thoracic Radiology, the [place] [employer], and RSNA. Published September 29, 2019.
--- NOTE | 2021-06-02 14:28 | HMH.EDGENADL ---
ED Disposition Clinical Impression: COVID-19, Shortness of breath Disposition: Home, Self-Care Condition on Discharge: Good Instructions: How to Care for Someone with COVID-19 Additional Instructions: Home medications as directed. Add aspirin 81 mg to her daily medication. Return to emergency department on Friday at 8 AM for antibody infusion. Return sooner for severe shortness of breath, chest pain. Referrals: Elaina Carvalho PA [Primary Care Provider] - 3 days Time of Disposition: 16:12 - Critical Care Critical Care Time: No Attestation: On 06/02/21, the high probability of a clinically significant, sudden or life threatening deterioration of the following system(s) required my full and direct attention, intervention and personal management. The time I documented below is in addition to time spent performing reported procedures but includes the following listed in this critical care notation. Medical Decision Making - Medical Records Medical records reviewed: Yes: I reviewed the patient's medical records. - Harman Inquiry Pt receiving controlled substance: No Vital Signs: 06/02/21 13:41 06/02/21 15:32 Temperature 97.9 F Temperature Source Oral Pulse Rate 67 Pulse Rate [Left Radial] 73 Respiratory Rate 20 18 Blood Pressure 136/63 Blood Pressure [Left Arm] 142/64 H Blood Pressure Mean [Left Arm] 90 Blood Pressure Source [Left Arm] Automatic Cuff Blood Pressure Position Sitting Blood Pressure Position [Left Arm] Sitting 02 Sat by Pulse Oximetry 92 L 92 L Oxygen Delivery Method Room Air Room Air - Lab Data Lab results reviewed: Yes: I reviewed the patient's lab results. Lab Results 06/02/21 13:50: WBC 2.4 L, RBC 4.37 L, Hgb 12.4 L, Hct 38.3 L, MCV 87.8, MCH 28.5, MCHC 32.4, RDW 17.4, Plt Count 105 L, MPV 9.6, Neut % (Auto) 63.8, Lymph % (Auto) 24.4, Hutchinson % (Auto) 9.1, Eos % (Auto) 2.2, Baso % (Auto) 0.6, Neut # (Auto) 1.5 L, Lymph # (Auto) 0.6 L, Hutch[place] # (Auto) 0.2, Eos # (Auto) 0.1, Baso # (Auto) 0.0 06/02/21 13:50: Sodium 137, Potassium 4.4, Chloride 101, Carbon Dioxide 29, Anion Gap 11.4, BUN 21 H, Creatinine 1.70 H, Estimated Creat Clear 49, Estimated GFR 41 L, Est GFR ( Amer) 50 L, Glucose 220 H, Calcium 8.5, Total Bilirubin 0.9, AST 35, ALT 12, Alkaline Phosphatase 93, Troponin I < 0.01, Total Protein 6.3, Albumin 3.4 L, Globulin 2.9, Albumin/Globulin Ratio 1.2 06/02/21 13:50: NT-Pro-B Natriuret Pep 316 H Result diagrams: 06/02/21 13:50 06/02/21 13:50 - Radiology Data #1 Image(s): Chest Image Reviewed: Yes I reviewed the patient's radiology results Preliminary Findings: Abnormal 1. Diffuse patchy airspace opacities noted throughout the lungs bilaterally. 2. Commonly reported imaging features of COVID-19 pneumonia are present. Other processes such as influenza pneumonia and organizing pneumonia, as can be seen with drug toxicity and connective tissue disease, can cause a similar imaging pattern. (Reference: Scott) 3. Heart demonstrates mild diffuse enlargement. Medical Decision Narrative: 65yo M presents the emergency department for general malaise. Patient no acute distress on initial evaluation. His O2 sat is 99 2% on room air. He is able to speak in complete sentences. Routine laboratory studies, including a troponin and BNP, have been collected based on patient HPI. Patient laboratory studies are unremarkable. Patient is able to ambulate around the trauma bay without supplemental O2 to maintain O2 sat of 93%. He is appropriate stable for discharge home. He is interested in monoclonal antibody infusion and the order was completed prior to his disposition. He was instructed return to emergency department Friday morning 8 AM. General Adult HPI - General Chief complaint: Weakness Stated complaint: covid +, light headness, weakness Time Seen by Provider: 06/02/21 14:00 Mode of Arrival: Wheelchair Limitations: No Limitations Description of S
[2021-06-02 14:53] LABS: Basophils % 0.6 % (0.1-2.0); Eosinophils # 0.1 K/mm3 (0.0-0.4); Eosinophils % 2.2 % (0.1-12.0); Hematocrit 38.3 % (42.0-52.0); Hemoglobin 12.4 g/dL (14.1-18.0); Lymphocytes # 0.6 K/mm3 (0.7-4.5); Lymphocytes % 24.4 % (10-50); Mean Corpuscular HGB Conc 32.4 g/dL (31.8-35.4); Mean Corpuscular Hemoglobin 28.5 pg (27.0-31.2); Mean Corpuscular Volume 87.8 fl (80-94); Mean Platelet Volume 9.6 fl (7.4-10.4); Monocytes # 0.2 K/mm3 (0.1-1.0); Monocytes % 9.1 % (1.7-9.3); Neutrophils # 1.5 K/mm3 (1.8-7.8); Neutrophils % 63.8 % (37.0-80.0); Platelet Count 105 K/mm3 (142-424); Red Blood Count 4.37 M/mm3 (4.60-6.20); Red Cell Distribution Width 17.4 % (11.5-17.5); White Blood Count 2.4 K/mm3 (4.8-10.8)
[2021-06-02 14:58] LABS: Chloride 101 mmol/L (98-107); Potassium 4.4 mmoL/L (3.5-5.1); Sodium 137 mmol/L (136-145)
[2021-06-02 15:00] LABS: Blood Urea Nitrogen 21 mg/dl (9-20); Creatinine Clearance Estimated 49 mL/min (50-200); Estimated Glomerular Filt Rate 41 ml/min (>60); GFR (African American) 50 ML/MIN (>60)
[2021-06-02 15:01] LABS: Alanine Aminotransferase 12 U/L (12-78); Albumin Level 3.4 g/dl (3.5-5.0); Albumin/Globulin Ratio 1.2 (1.1-1.8); Alkaline Phosphatase 93 U/L (38-126); Anion Gap 11.4 mEq/L (5-15); Aspartate Amino Transferase 35 U/L (17-59); Bilirubin,Total 0.9 mg/dl (0.2-1.3); Calcium 8.5 mg/dl (8.4-10.2); Carbon Dioxide 29 mmol/L (22.0-30.0); Globulin 2.9 g/dL (1.3-3.2); Glucose 220 mg/dl (74-100); Total Protein,Serum 6.3 g/dl (6.3-8.2)
[2021-06-02 15:11] LABS: NT Pro Brain Natriuretic Pep. 316 pg/mL (0-125)
[2021-06-02 15:15] LABS: Troponin I < 0.01 ng/ml (0.00-0.034)
[2021-06-02 15:32] VITALS: BP 136/63; PULSE 67; RESP 18; O2SAT 92
--- NOTE | 2021-06-02 16:15 | PC.NURSE ---
pt tolerated walking around in room well. SaO2 93% on RA pt had to sit on side of bed for a few minutes prior to getting up r/t felling light headed but got up well after sitting on side of bed notified ER pt sitting up on side of bed drinking water, will continue to monitor
[2021-06-02 16:33] VITALS: BP 136/63; PULSE 67; RESP 20; TEMP 36.6; O2SAT 93
== END 2021-06-02 16:33 | disposition home or self-care (01) ==
PROVIDERS: Emergency Provider Family Medicine; PCP Physician Assistant
DX: U07.1 COVID-19 (principal); R42 Dizziness and giddiness; E11.9 Type 2 diabetes mellitus without complications; E78.5 Hyperlipidemia, unspecified; I10 Essential (primary) hypertension; N28.9 Disorder of kidney and ureter, unspecified
CPT/HCPCS: 71045; 80053; 83880; 84484; 85025; 99283

== ENCOUNTER → 2021-06-04 09:15 | Outpatient (CLI) | payer MEDICARE, SELFPAY | PROVIDERS: PCP Physician Assistant; Visit Provider Family Medicine | DX: U07.1 COVID-19 (principal) ==

== ENCOUNTER 2021-06-04 10:14 | Inpatient (IN) | payer MEDICARE, SELFPAY ==
--- NOTE | 2021-06-04 10:17 | XR_ITS ---
PROCEDURE: XR CHEST PORTABLE CLINICAL HISTORY: sob COMPARISON: CR XR CHEST 2V from 01/06/2020 CR XR CHEST 2V from 06/05/2020 CR XR CHEST PORTABLE from 06/02/2021 FINDINGS: Cardiomegaly without failure. Prior CABG. Multifocal infiltrates suggesting Covid19 pneumonia slightly worse. No effusions. No acute bony abnormalities. IMPRESSION: Worsening multifocal pneumonia Dictated by: Bairon Raphael MD 06/04/2021 11:02 Bairon Raphael MD in [facility] 06/04/2021 11:02
[2021-06-04 10:20] VITALS: BMI 38.0
[2021-06-04 10:21] VITALS: BP 147/65; PULSE 76; RESP 22; TEMP 36.8; O2SAT 91; BMI 38.0
[2021-06-04 10:55] LABS: Basophils % 0.6 % (0.1-2.0); Eosinophils # 0.1 K/mm3 (0.0-0.4); Eosinophils % 2.6 % (0.1-12.0); Hematocrit 36.3 % (42.0-52.0); Hemoglobin 12.2 g/dL (14.1-18.0); Lymphocytes # 0.4 K/mm3 (0.7-4.5); Mean Corpuscular HGB Conc 33.7 g/dL (31.8-35.4); Mean Corpuscular Hemoglobin 28.7 pg (27.0-31.2); Mean Corpuscular Volume 85.3 fl (80-94); Mean Platelet Volume 9.5 fl (7.4-10.4); Monocytes # 0.1 K/mm3 (0.1-1.0); Monocytes % 5.7 % (1.7-9.3); Neutrophils # 1.6 K/mm3 (1.8-7.8); Neutrophils % 72.2 % (37.0-80.0); Platelet Count 149 K/mm3 (142-424); Red Blood Count 4.25 M/mm3 (4.60-6.20); Red Cell Distribution Width 17.5 % (11.5-17.5); White Blood Count 2.3 K/mm3 (4.8-10.8)
[2021-06-04 11:07] LABS: Chloride 97 mmol/L (98-107); Potassium 4.6 mmoL/L (3.5-5.1); Sodium 133 mmol/L (136-145)
[2021-06-04 11:10] LABS: Alanine Aminotransferase 14 U/L (12-78); Albumin Level 3.6 g/dl (3.5-5.0); Albumin/Globulin Ratio 1.2 (1.1-1.8); Alkaline Phosphatase 108 U/L (38-126); Anion Gap 12.6 mEq/L (5-15); Aspartate Amino Transferase 39 U/L (17-59); Blood Urea Nitrogen 21 mg/dl (9-20); Carbon Dioxide 28 mmol/L (22.0-30.0); Creatinine Clearance Estimated 80 mL/min (50-200); Estimated Glomerular Filt Rate 41 ml/min (>60); GFR (African American) 50 ML/MIN (>60); Globulin 2.9 g/dL (1.3-3.2); Total Protein,Serum 6.5 g/dl (6.3-8.2)
[2021-06-04 11:11] LABS: Calcium 9.1 mg/dl (8.4-10.2); Glucose 348 mg/dl (74-100)
[2021-06-04 11:19] LABS: NT Pro Brain Natriuretic Pep. 418 pg/mL (0-125)
--- NOTE | 2021-06-04 11:19 | ECG_ITS ---
APPROVED REPORT Exam: Resting ECG HR:76 bpm ECG Measurements Heart Rate 76 AXES QRSd 134 QRS 134 QT 456 T -83 QTc 513 Conclusion NSR with 1st degree AV block Right bundle branch block Left posterior fascicular block Bifascicular block T wave abnormality, consider inferior ischemia Abnormal ECG Electronically signed by : Estrada Gar MD 06/05/2021 21:05:58
[2021-06-04 11:24] LABS: Troponin I < 0.01 ng/ml (0.00-0.034)
[2021-06-04 11:28] VITALS: BP 158/72; PULSE 75; RESP 22; O2SAT 92
[2021-06-04 11:44] LABS: Influenza A, PCR Not Detected (NotDetected); Influenza B, PCR Not Detected (NotDetected)
--- NOTE | 2021-06-04 12:12 | HMH.EDGENADL ---
ED Disposition Clinical Impression: COVID-19, Acute respiratory failure with hypoxia Disposition: Admitted As Inpatient Condition on Discharge: Fair Referrals: Elaina Carvalho PA [Primary Care Provider] - Time of Disposition: 13:13 - Critical Care Critical Care Time: No Attestation: On 06/04/21, the high probability of a clinically significant, sudden or life threatening deterioration of the following system(s) required my full and direct attention, intervention and personal management. The time I documented below is in addition to time spent performing reported procedures but includes the following listed in this critical care notation. Medical Decision Making - Medical Records Medical records reviewed: Yes: I reviewed the patient's medical records. - Harman Inquiry Pt receiving controlled substance: No Vital Signs: 06/04/21 10:21 06/04/21 11:28 Temperature 98.3 F Temperature Source Oral Pulse Rate 75 Pulse Rate [Left Radial] 76 Respiratory Rate 22 22 Blood Pressure 158/72 H Blood Pressure [Right Arm] 147/65 H Blood Pressure Mean [Right Arm] 92 02 Sat by Pulse Oximetry 91 L 92 L Oxygen Delivery Method Nasal Cannula Nasal Cannula Oxygen Flow Rate (LPM) 5 5 - Lab Data Lab results reviewed: Yes: I reviewed the patient's lab results. Lab Results 06/04/21 10:40: WBC 2.3 L, RBC 4.25 L, Hgb 12.2 L, Hct 36.3 L, MCV 85.3, MCH 28.7, MCHC 33.7, RDW 17.5, Plt Count 149 D, MPV 9.5, Neut % (Auto) 72.2, Lymph % (Auto) 19.0, Crane % (Auto) 5.7, Eos % (Auto) 2.6, Baso % (Auto) 0.6, Neut # (Auto) 1.6 L, Lymph # (Auto) 0.4 L, Crane # (Auto) 0.1, Eos # (Auto) 0.1, Baso # (Auto) 0.0 06/04/21 10:40: Sodium 133 L, Potassium 4.6, Chloride 97 L, Carbon Dioxide 28, Anion Gap 12.6, BUN 21 H, Creatinine 1.70 H, Estimated Creat Clear 80, Estimated GFR 41 L, Est GFR ( Amer) 50 L, Glucose 348 H, Calcium 9.1, Total Bilirubin 1.0, AST 39, ALT 14, Alkaline Phosphatase 108, Troponin I < 0.01, NT-Pro-B Natriuret Pep 418 H, Total Protein 6.5, Albumin 3.6, Globulin 2.9, Albumin/Globulin Ratio 1.2 06/04/21 11:15: SARS-CoV-2 (PCR) Detected A, Influenza A Untype (PCR) Not detected, Influenza Type B (PCR) Not detected Result diagrams: 06/04/21 10:40 06/04/21 10:40 - Radiology Data #1 Image(s): Chest Image Reviewed: Yes I reviewed the patient's radiology results Preliminary Findings: Abnormal Worsening multifocal pneumonia - ECG Data Tracing #1 I reviewed this ECG and interpreted as documented below: Sinus rhythm, 76 bpm, right bundle branch block. No ST elevation or depression. ECG initial impression date: 06/04/21 ECG initial impression time: 11:21 Medical Decision Narrative: 65yo M returns for worsening Covid. Patient's O2 saturations are such now that he does not qualify for monoclonal antibodies. Patient will need to be admitted for further management. He has a leukopenia consistent with Covid. The remainder of his laboratory studies are nonactionable. Chest x-ray shows worsening multifocal pneumonia. Patient is not tachycardic, making PE less likely. Case discussed with Dr. Paredes who agrees to admit the patient and further manage his care at this time. General Adult HPI - General Chief complaint: Shortness of Breath/Dyspnea Stated complaint: shortness of breath Time Seen by Provider: 06/04/21 10:15 Mode of Arrival: Ambulatory Limitations: No Limitations Description of Symptoms (Recalled from ER Triage Doc. by RN): pt to ed per pvt car. pt was scheduled for a regen-cov infusion today. on arrival to ed pt's o2 saturation was 82% and pt was c/o sob. pt denies chest pain. pt was placed on 2L nc with no improvement and o2 was titrated to 5L nc with improvement to 92%. - History of Present Illness HPI narrative: 65yo M 3 presents the emergency department after coming for his monoclonal antibody infusion. He was found to have his O2 sats in the low 80s. He therefore did not qualify for monoclonal
[2021-06-04 12:52] LABS: Coronavirus 19, PCR Detected (NotDetected)
--- NOTE | 2021-06-04 13:02 | PC.NURSE ---
calling brent for possible admit
--- NOTE | 2021-06-04 13:05 | PC.NURSE ---
brent is not ent consultant. calling dr marshall
[2021-06-04 13:42] VITALS: BMI 42.3
--- NOTE | 2021-06-04 14:27 | PC.NURSE ---
called for lunch tray
--- NOTE | 2021-06-04 14:29 | PC.NURSE ---
calling report to yessi vanegas
[2021-06-04 15:19] VITALS: BP 142/78; PULSE 73; RESP 21; TEMP 36.8; O2SAT 92
--- NOTE | 2021-06-04 15:35 | HMH.PHAINT ---
MED REC- COMPARED MED LIST FROM DR. READ'S OFFICE, DR. LOU'S OFFICE, AND PHARMACY FILL HX. CORRECTIONS MADE.
--- NOTE | 2021-06-04 15:36 | P.CONPHA_ITS ---
[facility] VTE Monitoring - Patient Demographics Admission date: 06/04/21 Report Date: 06/04/21 Time: 15:36 Allergies/Adverse Reactions: Patient Allergies Iodinated Contrast Media [IODINATED CONTRAST MEDIA - IV DYE] Allergy (Unknown, Verified 06/02/21 14:00) I-HIVES Height: 1.83 m Weight: 141.521 kg Patient Problems: Current Active Problems COVID-19 (Acute) Acute respiratory failure with hypoxia (Acute) - VTE Risk Labs: VTE Related Lab Results Hgb 12.2 g/dL (14.1-18.0) L 06/04/21 10:40 Hct 36.3 % (42.0-52.0) L 06/04/21 10:40 Plt Count 149 K/mm3 (142-424) D 06/04/21 10:40 BUN 21 mg/dl (9-20) H 06/04/21 10:40 Creatinine 1.70 mg/dl (0.66-1.25) H 06/04/21 10:40 Estimated Creat Clear 80 mL/min (50-200) 06/04/21 10:40 VTE Score: 8 VTE Risk Level: Moderate Risk - Prophylaxis Types of VTE Prophylaxis: IPCS Knee High (ICDS ORDERED)
[2021-06-04 16:00] VITALS: PULSE 70
[2021-06-04 17:33] LABS: POC Glucose,Bedside 346 (70-110)
[2021-06-04 20:00] VITALS: BP 188/64; PULSE 76; PULSE 90; RESP 24; TEMP 37.7; O2SAT 93
[2021-06-04 21:37] LABS: POC Glucose,Bedside 277 (70-110)
[2021-06-04 23:55] VITALS: O2SAT 98
[2021-06-05] VITALS (8 sets, daily range): BP systolic 123–178; BP diastolic 57–80; PULSE 66–90; RESP 19–24; TEMP 36.4–38.1; O2SAT 91–96; BMI 42.0
[2021-06-05 06:35] LABS: Basophils % 0.6 % (0.1-2.0); Eosinophils % 1.5 % (0.1-12.0); Hemoglobin 11.4 g/dL (14.1-18.0); Lymphocytes # 0.8 K/mm3 (0.7-4.5); Lymphocytes % 28.6 % (10-50); Mean Corpuscular HGB Conc 32.4 g/dL (31.8-35.4); Mean Corpuscular Hemoglobin 28.4 pg (27.0-31.2); Mean Corpuscular Volume 87.7 fl (80-94); Mean Platelet Volume 9.7 fl (7.4-10.4); Monocytes # 0.2 K/mm3 (0.1-1.0); Monocytes % 6.3 % (1.7-9.3); Neutrophils # 1.8 K/mm3 (1.8-7.8); Neutrophils % 62.9 % (37.0-80.0); Platelet Count 179 K/mm3 (142-424); Red Cell Distribution Width 17.5 % (11.5-17.5); White Blood Count 2.8 K/mm3 (4.8-10.8)
[2021-06-05 06:52] LABS: Alanine Aminotransferase 11 U/L (12-78); Albumin Level 3.3 g/dl (3.5-5.0); Albumin/Globulin Ratio 1.1 (1.1-1.8); Alkaline Phosphatase 89 U/L (38-126); Anion Gap 9.3 mEq/L (5-15); Aspartate Amino Transferase 38 U/L (17-59); Bilirubin,Total 0.8 mg/dl (0.2-1.3); Blood Urea Nitrogen 17 mg/dl (9-20); Calcium 9.3 mg/dl (8.4-10.2); Carbon Dioxide 32 mmol/L (22.0-30.0); Chloride 100 mmol/L (98-107); Creatinine Clearance Estimated 52 mL/min (50-200); Estimated Glomerular Filt Rate 44 ml/min (>60); GFR (African American) 53 ML/MIN (>60); Globulin 3.1 g/dL (1.3-3.2); Glucose 115 mg/dl (74-100); Potassium 4.3 mmoL/L (3.5-5.1); Sodium 137 mmol/L (136-145); Total Protein,Serum 6.4 g/dl (6.3-8.2)
[2021-06-05 08:13] LABS: POC Glucose,Bedside 113 (70-110)
--- NOTE | 2021-06-05 09:29 | HMH.PULMCON ---
*Admission Date: 06/04/21 *Reason for consult:: Acute hypoxic respiratory failure, COVID-19 pneumonia *History of present illness: Mr. Parham a 65-year-old male no significant smoking history, no prior respiratory complaints, diagnosis sleep apnea using CPAP machine without any oxygen presented to the hospital worsening respiratory distress. He is known. He believes that he contracted COVID-19 from his [id number]. [facility] History Medical History: Reports:: Congestive Heart Failure, Coronary Artery Disease, Diabetes Mellitus Type 2, Hyperlipidemia, Hypertension, Palpitations, Renal Disease, Transient Ischemic Attacks (TIA) *Have you ever received a pneumonia vaccine?: No *Have you received a flu vaccine this season?: No Other Medical History: Reports: Anemia, Arthritis, Cataracts, Liver Disease Laterality Cases: Left: Carpal Tunnel Release, Right: Arthroscopy Knee Other Surgeries: Yes: Appendectomy, Cardiac Catheterization, Cardiac Surgery, Cholecystectomy, Colonoscopy, Coronary Stent, Hernia Repair, Open Heart Surgery Amputation: No Fractures: No - *Social History Smoking Status: Never smoker Alcohol Intake: never Substance Use Type: denies use *Occupational Status:: disabled Housing: house Household Members: family *Travel in the last 8 weeks: None Family Hx:: Heart Attack, Coronary Artery Disease, Diabetes, Hypertension, Hyperlipidemia, Kidney Disease, Thyroid Disorder, Other ROS - Cons Reports body ache(s), Reports chills - ENT Denies bleeding gums, Denies dizziness - Card Reports shortness of breath with activity - Resp Respiratory: Reports shortness of breath, Reports chest congestion, Reports cough, Denies excessive phlegm production, Denies pain on inspiration, Reports cough with sputum production, Denies pain with breathing - GI Gastrointestingal: Denies: abdominal pain - Psych Denies thoughts of hurting/killing others, Denies thoughts of hurting/killing yourself Meds Home Medications Medication Instructions Recorded Confirmed Type Levothyroxine Sodium 75 mcg PO DAILY 06/19/19 06/04/21 History [Levothyroxine 75mcg (0.075mg) Tab] carvedilol 25 mg tablet 50 mg PO BID tab 01/11/21 06/04/21 History hydralazine 100 mg tablet 100 mg PO BID 01/11/21 06/04/21 History insulin human U-100 NPH-regulr 72 unit SQ BID ml 01/11/21 06/04/21 History 70-30 mix 100 unit/mL subcutaneous susp omeprazole 40 mg capsule,delayed 40 mg PO DAILY cap 01/11/21 06/04/21 History release ranolazine 500 mg tablet,extended 500 mg PO BID tab 01/11/21 06/04/21 History release,12 hr tamsulosin 0.4 mg capsule 0.4 mg PO DAILY 01/11/21 06/04/21 History Calcium Carb/Magnesium Oxid/D3 1 each PO TID 06/02/21 06/04/21 History [Calcium Magnesium + D Tablet] Ergocalciferol (Vitamin D2) 1,250 mcg PO WEEKLY 06/02/21 06/04/21 History [Drisdol] Amlodipine Besylate [Amlodipine 10 mg PO DAILY 06/04/21 06/04/21 History 10mg Tab] Aspirin [Aspirin 81mg EC Tab] 81 mg PO DAILY 06/04/21 06/04/21 History Gabapentin 300 mg PO TID 06/04/21 06/04/21 History Isosorbide Mononitrate [Isosorbide 90 mg PO DAILY 06/04/21 06/04/21 History Mononitrate ER] Rosuvastatin Calcium [Crestor 40mg 40 mg PO HS 06/04/21 06/04/21 History Tablets] Torsemide 10 mg PO DAILY 06/04/21 06/04/21 History cephALEXin [cephALEXin 250mg 250 mg PO DAILY 06/04/21 06/04/21 History capsule] Allergies Allergy/AdvReac Type Severity Reaction Status Date / Time Iodinated Contrast Media Allergy Unknown I-HIVES Verified 06/02/21 14:00 [IODINATED CONTRAST MEDIA - IV DYE] Exam - Constitutional Constitutional:: Present: no acute distress, comfortable - HENMS Exam [facility]: Present: normocephalic - Eye Exam Eyes:: Present: normal appearance both eyes and related structures - Neck Exam Neck:: Present: normal visual inspection - Respiratory Exam Respiratory:: Present: able to speak in complete sentences, decreased breath sounds.
[2021-06-05 09:50] LABS: POC Glucose,Bedside 164 (70-110)
[2021-06-05 10:43] LABS: Phosphorous 3.6 mg/dl (2.5-4.5)
[2021-06-05 10:44] LABS: Magnesium 2.1 mg/dl (1.6-2.3)
[2021-06-05 10:48] LABS: C-Reactive Protein 135.2 mg/L (0-4)
[2021-06-05 10:49] LABS: POC Glucose,Bedside 109 (70-110)
[2021-06-05 11:18] LABS: D-Dimer 0.65 ug/mL (0.0-0.5)
--- NOTE | 2021-06-05 14:08 | HMH.HP ---
*Admission Date: 06/04/21 *Chief complaint: sob *History of present illness: this patient with covid-19 and has progressive sob and cough with dec po intake- pt was seen in the ed - to ed per pvt car. pt was scheduled for a regen-cov infusion today. on arrival to ed pt's o2 saturation was 82% and pt was c/o sob. pt denies chest pain. pt was placed on 2L nc with no improvement and o2 was titrated to 5L nc with improvement to 92% 65yo M presents the emergency department after coming for his monoclonal antibody infusion. He was found to have his O2 sats in the low 80s. He therefore did not qualify for monoclonal antibody infusion. He denies any significant change in his condition since he was seen 2 days ago. He continues to have some shortness of breath and general malaise. Denies any fever, nausea/vomiting/diarrhea. Continues to report poor appetite. History of CHF.- pt was admitted [facility] History I have reviewed the patient's past medical history: Yes Medical History: Reports:: Congestive Heart Failure, Coronary Artery Disease, Diabetes Mellitus Type 2, Hyperlipidemia, Hypertension, Palpitations, Renal Disease, Transient Ischemic Attacks (TIA) *Have you ever received a pneumonia vaccine?: No *Have you received a flu vaccine this season?: No Other Medical History: Reports: Anemia, Arthritis, Cataracts, Liver Disease Laterality Cases: Left: Carpal Tunnel Release, Right: Arthroscopy Knee Other Surgeries: Yes: Appendectomy, Cardiac Catheterization, Cardiac Surgery, Cholecystectomy, Colonoscopy, Coronary Stent, Hernia Repair, Open Heart Surgery Amputation: No Fractures: No - *Social History Smoking Status: Never smoker Alcohol Intake: never Substance Use Type: denies use *Occupational Status:: disabled Housing: house Household Members: family *Travel in the last 8 weeks: None Family Hx:: Heart Attack, Coronary Artery Disease, Diabetes, Hypertension, Hyperlipidemia, Kidney Disease, Thyroid Disorder, Other Review of Systems - Review of Systems Review of systems:: pertinent systems reviewed and negative unless documented below - Constitutional Reports fatigue, Reports fever(s) - Eyes Denies change in vision - ENT Denies sore throat - *Cardiovascular Reports shortness of breath, Denies chest pain - *Respiratory Reports cough, Reports shortness of breath, Denies coughing up blood - *Gastrointestinal Denies abdominal pain - *Genitourinary Denies blood in urine - *Musculoskeletal Denies joint pain, Denies joint swelling - Integumentary/Breasts Denies rash - *Neurologic Denies dizziness - Psychiatric Denies change in appetite, Denies hopelessness Meds Home Medications Medication Instructions Recorded Confirmed Type Levothyroxine Sodium 75 mcg PO DAILY 06/19/19 06/04/21 History [Levothyroxine 75mcg (0.075mg) Tab] carvedilol 25 mg tablet 50 mg PO BID tab 01/11/21 06/04/21 History hydralazine 100 mg tablet 100 mg PO BID 01/11/21 06/04/21 History insulin human U-100 NPH-regulr 72 unit SQ BID ml 01/11/21 06/04/21 History 70-30 mix 100 unit/mL subcutaneous susp omeprazole 40 mg capsule,delayed 40 mg PO DAILY cap 01/11/21 06/04/21 History release ranolazine 500 mg tablet,extended 500 mg PO BID tab 01/11/21 06/04/21 History release,12 hr tamsulosin 0.4 mg capsule 0.4 mg PO DAILY 01/11/21 06/04/21 History Calcium Carb/Magnesium Oxid/D3 1 each PO TID 06/02/21 06/04/21 History [Calcium Magnesium + D Tablet] Ergocalciferol (Vitamin D2) 1,250 mcg PO WEEKLY 06/02/21 06/04/21 History [Drisdol] Amlodipine Besylate [Amlodipine 10 mg PO DAILY 06/04/21 06/04/21 History 10mg Tab] Aspirin [Aspirin 81mg EC Tab] 81 mg PO DAILY 06/04/21 06/04/21 History Gabapentin 300 mg PO TID 06/04/21 06/04/21 History Isosorbide Mononitrate [Isosorbide 90 mg PO DAILY 06/04/21 06/04/21 History Mononitrate ER] Rosuvastatin Calcium [Crestor 40mg 40 mg PO HS 06/04/21 06/04/21 History Tablets] Torsemide
[2021-06-05 16:25] LABS: POC Glucose,Bedside 186 (70-110)
--- NOTE | 2021-06-05 16:52 | PC.NURSE ---
Pt has been pleasant and cooperative this shift. A&O X4. No complaints of pain or SOA. Pt is currently receiving O2 via NC @ 2 LPM with sats. >90%. Lungs CTA. Intermittent, dry, non-productive cough noted. No edema present. Skin is C/D/I. Pt ambulates independently. Pt uses the urinal to void clear, yellow urine without issue. No BM thus far this shift. Pt has sat up in the recliner for the majority of the day. Appetite is good and pt eats the majority of all meals. FSBS results have been 164, 109, and 186. 20 G peripheral IV in the RT AC is patent and SL. VSS. Call light within reach. Will continue to monitor.
--- NOTE | 2021-06-05 18:47 | PC.NURSE ---
Pt just arrived to the covid unit via wheelchair accompanied by Vance Leonard, SRNA
[2021-06-06] VITALS: BP 153/71; PULSE 74; RESP 22; TEMP 36.6; O2SAT 93
[2021-06-06 04:00] VITALS: BP 159/91; PULSE 62; RESP 20; TEMP 36.4; O2SAT 94
[2021-06-06 05:00] VITALS: BMI 41.8
--- NOTE | 2021-06-06 05:05 | PC.NURSE ---
pt has remained on 2L NC t/o shift, sats 92-94%, pt does have an intermittent, non-productive cough, no complaints of SOA or pain, 1100mL of clear yellow urine out this shift
[2021-06-06 07:41] LABS: Basophils % 0.7 % (0.1-2.0); Eosinophils % 0.1 % (0.1-12.0); Hematocrit 36.4 % (42.0-52.0); Hemoglobin 11.4 g/dL (14.1-18.0); Lymphocytes # 0.4 K/mm3 (0.7-4.5); Lymphocytes % 19.1 % (10-50); Mean Corpuscular HGB Conc 31.3 g/dL (31.8-35.4); Mean Corpuscular Hemoglobin 27.5 pg (27.0-31.2); Mean Platelet Volume 10.1 fl (7.4-10.4); Monocytes # 0.2 K/mm3 (0.1-1.0); Monocytes % 8.6 % (1.7-9.3); Neutrophils # 1.6 K/mm3 (1.8-7.8); Neutrophils % 71.5 % (37.0-80.0); Platelet Count 204 K/mm3 (142-424); Red Blood Count 4.14 M/mm3 (4.60-6.20); Red Cell Distribution Width 17.2 % (11.5-17.5); White Blood Count 2.2 K/mm3 (4.8-10.8)
[2021-06-06 08:00] VITALS: BP 160/79; PULSE 72; RESP 22; TEMP 36.8; O2SAT 91
[2021-06-06 08:21] LABS: Chloride 101 mmol/L (98-107)
[2021-06-06 08:22] LABS: Potassium 4.9 mmoL/L (3.5-5.1); Sodium 135 mmol/L (136-145)
[2021-06-06 08:24] LABS: Alanine Aminotransferase 13 U/L (12-78); Alkaline Phosphatase 98 U/L (38-126); Aspartate Amino Transferase 43 U/L (17-59); Bilirubin,Total 0.9 mg/dl (0.2-1.3); Blood Urea Nitrogen 25 mg/dl (9-20); Creatinine Clearance Estimated 55 mL/min (50-200); Estimated Glomerular Filt Rate 47 ml/min (>60); GFR (African American) 57 ML/MIN (>60)
[2021-06-06 08:25] LABS: Albumin Level 3.4 g/dl (3.5-5.0); Albumin/Globulin Ratio 1.1 (1.1-1.8); Anion Gap 12.9 mEq/L (5-15); Calcium 8.9 mg/dl (8.4-10.2); Carbon Dioxide 26 mmol/L (22.0-30.0); Glucose 241 mg/dl (74-100); Total Protein,Serum 6.4 g/dl (6.3-8.2)
--- NOTE | 2021-06-06 09:12 | HMH.ACPN2 ---
Internal Medicine - PN: Subj *Date: 06/06/21 *Time: 09:12 Exam Vital signs and Labs for Last 24 Hours: Temp Pulse Resp BP Pulse Ox 97.6 F 62 20 159/91 H 94 L 06/06/21 04:00 06/06/21 04:00 06/06/21 04:00 06/06/21 04:00 06/06/21 04:00 Laboratory Results - last 24 hr 06/05/21 06:12: C-Reactive Protein 135.2 H 06/05/21 06:12: Phosphorus 3.6, Magnesium 2.1 06/05/21 08:17: POC Glucose 164 H 06/05/21 10:35: D-Dimer 0.65 H 06/05/21 10:41: POC Glucose 109 06/05/21 16:11: POC Glucose 186 H 06/06/21 05:55: WBC 2.2 L, RBC 4.14 L, Hgb 11.4 L, Hct 36.4 L, MCV 88.0, MCH 27.5, MCHC 31.3 L, RDW 17.2, Plt Count 204, MPV 10.1, Neut % (Auto) 71.5, Lymph % (Auto) 19.1, [place] % (Auto) 8.6, Eos % (Auto) 0.1, Baso % (Auto) 0.7, Neut # (Auto) 1.6 L, Lymph # (Auto) 0.4 L, [place] # (Auto) 0.2, Eos # (Auto) 0.0, Baso # (Auto) 0.0 06/06/21 05:55: Sodium 135 L, Potassium 4.9, Chloride 101, Carbon Dioxide 26, Anion Gap 12.9, BUN 25 H D, Creatinine 1.50 H, Estimated Creat Clear 55, Estimated GFR 47 L, Est GFR ( Amer) 57 L, Glucose 241 H D, Calcium 8.9, Total Bilirubin 0.9, AST 43, ALT 13, Alkaline Phosphatase 98, Total Protein 6.4, Albumin 3.4 L, Globulin 3.0, Albumin/Globulin Ratio 1.1 I & O for Last 24 hours: Intake & Output 06/03/21 06/04/21 06/05/21 06/06/21 11:59 11:59 11:59 11:59 Intake Total 480 / 480 250 / 250 Output Total 1000 / 1000 1875 / 1875 Balance -520 / -520 -1625 / -1625 Weight 280 lb 310 lb 13.628 oz 309 lb 4.937 oz
[2021-06-06 09:45] VITALS: O2SAT 86
[2021-06-06 09:50] VITALS: BMI 41.8
--- NOTE | 2021-06-06 11:14 | HMH.PULMPN ---
Internal Medicine - PN: Subj *Date: 06/06/21 *Time: 11:14 Interval history: No acute respiratory vents overnight. Patient admits continued improvement in his symptoms. Exam - Constitutional Constitutional:: Present: no acute distress, comfortable - HENMT Exam HENMT: Present: normocephalic - Eye Exam Eyes:: Present: normal appearance both eyes and related structures - Neck Exam Neck:: Present: normal visual inspection - Respiratory Exam Respiratory:: Present: able to speak in complete sentences, no respiratory distress, normal respiratory effort, rhonchi. Absent: wheezing - Cardiovascular Exam Cardiac:: Present: S1, S2 - GI Exam GI:: Present: soft - Skin Exam Skin: Present: warm - Neurological Exam Neurological: Present: alert, awake, normal cognition - Extremities Exam Extremities: Present: no cyanosis, no clubbing, no edema Assessment and Plan - Assessment and plan all Dx Assessment and Plan for all problems:: #COVID-19 pneumonia: Mr. Parham a 65-year-old male no significant smoking history, no prior respiratory complaints, diagnosis sleep apnea using CPAP machine without any oxygen presented to the hospital worsening respiratory distress. He is known. He believes that he contracted COVID-19 from his [facility]-pr[facility]. Leukopenia with lymphopenia noted, slightly improved from yesterday. COVID 19 PCR positive, flu panel negative. CRP at 135 and D-dimer at 0.65 NEMO on CKD. CXR chest x-ray bilateral diffuse patchy airspace disease left greater than right. Patient was initiated on remdesivir and dexamethasone at admission. Interval update: Patient respiratory status significantly improved on this hospital admission, he was initially needing 4 L, this morning he is on 1 L saturating 93 to 94%. Denies any respiratory distress. Plan: Continue nasal cannula oxygen supplementation Continue remdesivir and [id number] DAYS for COVID-19 pneumonia. Doxycycline to complete a total of 5-day course. Combivent every 6 hours as needed. CRP and D-dimer Thank you for involving pulmonary in this patient care. We will follow the patient in pulmonary clinic in 4 weeks.
--- NOTE | 2021-06-06 13:59 | HMH.DCSUM ---
General - General Admission date:: 06/04/21 Discharge date: 06/06/21 HPI HPI: this patient with covid-19 and has progressive sob and cough with dec po intake- pt was seen in the ed - to ed per pvt car. pt was scheduled for a regen-cov infusion today. on arrival to ed pt's o2 saturation was 82% and pt was c/o sob. pt denies chest pain. pt was placed on 2L nc with no improvement and o2 was titrated to 5L nc with improvement to 92% 65yo M presents the emergency department after coming for his monoclonal antibody infusion. He was found to have his O2 sats in the low 80s. He therefore did not qualify for monoclonal antibody infusion. He denies any significant change in his condition since he was seen 2 days ago. He continues to have some shortness of breath and general malaise. Denies any fever, nausea/vomiting/diarrhea. Continues to report poor appetite. History of CHF.- pt was admitted Hospital Course Hospital Course: Laboratory Tests 06/04/21 06/04/21 06/04/21 10:40 10:40 11:15 WBC 2.3 L RBC 4.25 L Hgb 12.2 L Hct 36.3 L MCV 85.3 MCH 28.7 MCHC 33.7 RDW 17.5 Plt Count 149 D MPV 9.5 Neut % (Auto) 72.2 Lymph % (Auto) 19.0 [place] % (Auto) 5.7 Eos % (Auto) 2.6 Baso % (Auto) 0.6 Neut # (Auto) 1.6 L Lymph # (Auto) 0.4 L [place] # (Auto) 0.1 Eos # (Auto) 0.1 Baso # (Auto) 0.0 D-Dimer Sodium 133 L Potassium 4.6 Chloride 97 L Carbon Dioxide 28 Anion Gap 12.6 BUN 21 H Creatinine 1.70 H Estimated Creat Clear 80 Estimated GFR 41 L Est GFR ( Amer) 50 L Glucose 348 H POC Glucose Calcium 9.1 Phosphorus Magnesium Total Bilirubin 1.0 AST 39 ALT 14 Alkaline Phosphatase 108 Troponin I < 0.01 C-Reactive Protein NT-Pro-B Natriuret Pep 418 H Total Protein 6.5 Albumin 3.6 Globulin 2.9 Albumin/Globulin Ratio 1.2 SARS-CoV-2 (PCR) Detected A Influenza A Untype (PCR) Not detected Influenza Type B (PCR) Not detected 06/04/21 06/04/21 06/05/21 16:57 20:09 05:10 WBC RBC Hgb Hct MCV MCH MCHC RDW Plt Count MPV Neut % (Auto) Lymph % (Auto) [place] % (Auto) Eos % (Auto) Baso % (Auto) Neut # (Auto) Lymph # (Auto) [place] # (Auto) Eos # (Auto) Baso # (Auto) D-Dimer Sodium Potassium Chloride Carbon Dioxide Anion Gap BUN Creatinine Estimated Creat Clear Estimated GFR Est GFR ( Amer) Glucose POC Glucose 346 H* 277 H 113 H Calcium Phosphorus Magnesium Total Bilirubin AST ALT Alkaline Phosphatase Troponin I C-Reactive Protein NT-Pro-B Natriuret Pep Total Protein Albumin Globulin Albumin/Globulin Ratio SARS-CoV-2 (PCR) Influenza A Untype (PCR) Influenza Type B (PCR) 06/05/21 06/05/21 06/05/21 06:12 06:12 06:12 WBC 2.8 L RBC 4.00 L Hgb 11.4 L Hct 35.0 L MCV 87.7 MCH 28.4 MCHC 32.4 RDW 17.5 Plt Count 179 MPV 9.7 Neut % (Auto) 62.9 Lymph % (Auto) 28.6 [place] % (Auto) 6.3 Eos % (Auto) 1.5 Baso % (Auto) 0.6 Neut # (Auto) 1.8 Lymph # (Auto) 0.8 [place] # (Auto) 0.2 Eos # (Auto) 0.0 Baso # (Auto) 0.0 D-Dimer Sodium 137 Potassium 4.3 Chloride 100 Carbon Dioxide 32 H Anion Gap 9.3 BUN 17 Creatinine 1.60 H Estimated Creat Clear 52 Estimated GFR 44 L Est GFR ( Amer) 53 L Glucose 115 H D POC Glucose Calcium 9.3 Phosphorus Magnesium Total Bilirubin 0.8 AST 38 ALT 11 L Alkaline Phosphatase 89 Troponin I C-Reactive Protein 135.2 H NT-Pro-B Natriuret Pep Total Protein 6.4 Albumin 3.3 L Globulin 3.1 Albumin/Globulin Ratio 1.1 SARS-CoV-2 (PCR) Influenza A Untype (PCR) Influenza Type B (PCR) 06/05/21 06/05/21 06/05/21
--- NOTE | 2021-06-06 14:23 | SW/DCPLANNER ---
Addendum entered by Isa Coleman 06/06/21 14:46: I spoke with Sushma at [facility]: portable O2 tank will be delivered. Original Note: Patient information/order has been faxed to [facility] for home O2 + portable O2 tank. I will follow up with [facility] once patient information/order is reviewed. Patient will discharge home later today.
== END 2021-06-06 15:45 | disposition home or self-care (01) | DRG 177 ==
LOC: ER 13:14 → 2ND 15:12 → ICU 06-05 17:11
PROVIDERS: Internal Medicine Pulmonary Disease; Admitting Provider Emergency Medicine; Emergency Provider Family Medicine; PCP Physician Assistant; Visit Provider Emergency Medicine
DX: U07.1 COVID-19 (principal); J12.82 Pneumonia due to coronavirus disease 2019; J96.01 Acute respiratory failure with hypoxia; N17.9 Acute kidney failure, unspecified; I13.0 Hypertensive heart and chronic kidney disease with heart failure and stage 1 through stage 4 chronic kidney disease, or unspecified chronic kidney disease; Z68.41 Body mass index [BMI] 40.0-44.9, adult; I50.9 Heart failure, unspecified; Z79.4 Long term (current) use of insulin; M19.90 Unspecified osteoarthritis, unspecified site; E11.22 Type 2 diabetes mellitus with diabetic chronic kidney disease; N18.9 Chronic kidney disease, unspecified; E03.9 Hypothyroidism, unspecified; E11.40 Type 2 diabetes mellitus with diabetic neuropathy, unspecified; G47.30 Sleep apnea, unspecified; Z86.73 Personal history of transient ischemic attack (TIA), and cerebral infarction without residual deficits; E66.9 Obesity, unspecified
CPT/HCPCS: 36415; 71045; 80053; 82962; 83735; 83880; 84100; 84484; 85025; 85378; 86140; 93005; 94760; 94761; 99282; 99283; C9803; U0003; U0005

== ENCOUNTER 2021-06-30 20:35 | Emergency (ER) | payer MEDICARE, SELFPAY ==
--- NOTE | 2021-06-30 20:14 | ECG_ITS ---
APPROVED REPORT Exam: Resting ECG HR:83 bpm ECG Measurements Heart Rate 83 AXES AR 166 P -4 QRSd 134 QRS 116 QT 428 T -2 QTc 502 Conclusion Normal sinus rhythm Right bundle branch block Abnormal ECG Electronically signed by : Estrada Gar MD 07/01/2021 09:07:11
[2021-06-30 20:36] VITALS: BP 177/78; PULSE 72; RESP 20; TEMP 36.9; O2SAT 96; BMI 41.8
[2021-06-30 20:52] VITALS: BP 159/71; PULSE 77; RESP 17; TEMP 37.1; O2SAT 95
--- NOTE | 2021-06-30 21:01 | XR_ITS ---
PROCEDURE INFORMATION: Exam: XR Chest Exam date and time: 06/30/2021 9:01 PM Age: 66 years old Clinical indication: Sternal or substernal pain; Prior surgery; Surgery date: 6+ months; Surgery type: Open heart surgery; Additional info: KATTY Yip TECHNIQUE: Imaging protocol: XR of the chest. Views: 2 views. COMPARISON: CR XR CHEST PORTABLE 06/04/2021 10:46 AM FINDINGS: Tubes, catheters and devices: Multiple sternal cerclage wires overlie the sternum. Lungs: Residual bibasilar opacities have improved from prior exam. Pleural spaces: Unremarkable. No pleural effusion. No pneumothorax. Heart/Mediastinum: Unremarkable. No cardiomegaly. Bones/joints: Unremarkable. IMPRESSION: Residual bibasilar opacities have improved from prior exam.
[2021-06-30 21:17] LABS: Chloride 96 mmol/L (98-107)
[2021-06-30 21:18] LABS: Basophils % 1.1 % (0.1-2.0); Eosinophils # 0.2 K/mm3 (0.0-0.4); Eosinophils % 5.8 % (0.1-12.0); Hematocrit 33.8 % (42.0-52.0); Hemoglobin 10.4 g/dL (14.1-18.0); Lymphocytes # 0.8 K/mm3 (0.7-4.5); Lymphocytes % 20.4 % (10-50); Mean Corpuscular HGB Conc 30.8 g/dL (31.8-35.4); Mean Corpuscular Volume 91.1 fl (80-94); Mean Platelet Volume 8.5 fl (7.4-10.4); Monocytes # 0.2 K/mm3 (0.1-1.0); Monocytes % 4.6 % (1.7-9.3); Neutrophils # 2.8 K/mm3 (1.8-7.8); Neutrophils % 68.1 % (37.0-80.0); Platelet Count 206 K/mm3 (142-424); Potassium 4.6 mmoL/L (3.5-5.1); Red Blood Count 3.71 M/mm3 (4.60-6.20); Sodium 132 mmol/L (136-145); White Blood Count 4.1 K/mm3 (4.8-10.8)
[2021-06-30 21:20] LABS: Alanine Aminotransferase 17 U/L (12-78); Aspartate Amino Transferase 21 U/L (17-59); Blood Urea Nitrogen 15 mg/dl (9-20); Creatinine Clearance Estimated 61 mL/min (50-200); Estimated Glomerular Filt Rate 56 ml/min (>60); GFR (African American) 67 ML/MIN (>60)
[2021-06-30 21:21] LABS: Microscopic, Urine URINE MICROSCOPIC (MICROSCOPIC)
[2021-06-30 21:21] LABS: Albumin Level 3.7 g/dl (3.5-5.0); Albumin/Globulin Ratio 1.3 (1.1-1.8); Alkaline Phosphatase 111 U/L (38-126); Anion Gap 13.6 mEq/L (5-15); Bilirubin,Total 1.6 mg/dl (0.2-1.3); Carbon Dioxide 27 mmol/L (22.0-30.0); Globulin 2.8 g/dL (1.3-3.2); Lactic Acid 1.2 mmol/L (0.7-2.1); Magnesium 1.9 mg/dl (1.6-2.3); Total Protein,Serum 6.5 g/dl (6.3-8.2)
[2021-06-30 21:22] LABS: Appearance,Urine CLEAR (Clear); Bilirubin,Urine Negative (Negative); Blood, Urine Negative (Negative); Color,Urine YELLOW (Yellow); Glucose,Urine (UA) 3+ (Negative); Ketones,Urine Negative (Negative); Leukocyte Esterase,Urine Negative (Negative); Nitrate,Urine Negative (Negative); PH,Urine 7.5 (5.0-8.5); Protein,Urine TRACE (Negative); Urobilinogen,Urine 0.2 EU/dl (0.2)
[2021-06-30 21:26] LABS: C-Reactive Protein 53.6 mg/L (0-4)
[2021-06-30 21:32] VITALS: BP 175/77; PULSE 82; RESP 17; O2SAT 95
[2021-06-30 21:52] LABS: Troponin I < 0.01 ng/ml (0.00-0.034)
[2021-06-30 21:53] LABS: Glucose 481 mg/dl (74-100)
--- NOTE | 2021-06-30 21:53 | PC.NURSE ---
Critical glucose called by Becka in lab. Blood glucose 481. notified.
[2021-06-30 22:02] LABS: Squamous Epithelial Cell,Urine Occasional #/hpf (0-5)
--- NOTE | 2021-06-30 22:11 | HMH.EDCP ---
ED Disposition Clinical Impression: Chest pain Qualifiers: Chest pain type: precordial pain Qualified Code(s): R07.2 - Precordial pain Disposition: Home, Self-Care Condition on Discharge: Good Instructions: DI for Chest Pain Additional Instructions: recheck if needed and see card friday Referrals: Provider,Jose Rafael, [Referring] - - Critical Care Critical Care Time: No Attestation: On 06/30/21, the high probability of a clinically significant, sudden or life threatening deterioration of the following system(s) required my full and direct attention, intervention and personal management. The time I documented below is in addition to time spent performing reported procedures but includes the following listed in this critical care notation. Medical Decision Making - Medical Records Medical records reviewed: Yes: I reviewed the patient's medical records. - Harman Inquiry Pt receiving controlled substance: No Vital Signs: 06/30/21 20:36 06/30/21 20:52 06/30/21 21:32 Temperature 98.4 F 98.7 F Temperature Source Oral Oral Pulse Rate 77 82 Pulse Rate [Right] 72 Respiratory Rate 20 17 17 Blood Pressure 159/71 H 175/77 H Blood Pressure [Right Arm] 177/78 H Blood Pressure Mean [Right Arm] 111 Blood Pressure Source Automatic Cuff Blood Pressure Position Supine Supine 02 Sat by Pulse Oximetry 96 95 95 Oxygen Delivery Method Room Air Room Air Room Air 06/30/21 22:16 06/30/21 22:57 06/30/21 23:27 Temperature Temperature Source Pulse Rate 76 76 77 Pulse Rate [Right] Respiratory Rate 18 Blood Pressure 161/73 H 156/74 H 170/66 H Blood Pressure [Right Arm] Blood Pressure Mean [Right Arm] Blood Pressure Source Automatic Cuff Automatic Cuff Automatic Cuff Blood Pressure Position Supine Supine Supine 02 Sat by Pulse Oximetry 95 95 95 Oxygen Delivery Method Room Air Room Air Room Air 07/01/21 00:08 07/01/21 00:34 Temperature Temperature Source Pulse Rate 79 74 Pulse Rate [Right] Respiratory Rate Blood Pressure 183/83 H 187/76 H Blood Pressure [Right Arm] Blood Pressure Mean [Right Arm] Blood Pressure Source Automatic Cuff Automatic Cuff Blood Pressure Position Supine Supine 02 Sat by Pulse Oximetry 93 L 94 L Oxygen Delivery Method Room Air Room Air - Lab Data Lab results reviewed: Yes: I reviewed the patient's lab results. Lab Results 06/30/21 20:20: WBC 4.1 L, RBC 3.71 L, Hgb 10.4 L, Hct 33.8 L, MCV 91.1, MCH 28.0, MCHC 30.8 L, RDW 20.0 H, Plt Count 206, MPV 8.5, Neut % (Auto) 68.1, Lymph % (Auto) 20.4, [place] % (Auto) 4.6, Eos % (Auto) 5.8, Baso % (Auto) 1.1, Neut # (Auto) 2.8, Lymph # (Auto) 0.8, [place] # (Auto) 0.2, Eos # (Auto) 0.2, Baso # (Auto) 0.0, ESR > 140 H 06/30/21 20:20: Sodium 132 L, Potassium 4.6, Chloride 96 L, Carbon Dioxide 27, Anion Gap 13.6, BUN 15, Creatinine 1.30 H, Estimated Creat Clear 61, Estimated GFR 56 L, Est GFR ( Amer) 67, Glucose 481 H*, Calcium 9.0, Magnesium 1.9, Total Bilirubin 1.6 H, AST 21, ALT 17, Alkaline Phosphatase 111, Troponin I < 0.01, C-Reactive Protein 53.6 H, Total Protein 6.5, Albumin 3.7, Globulin 2.8, Albumin/Globulin Ratio 1.3, Procalcitonin 0.212 06/30/21 20:20: Lactate 1.2 06/30/21 20:20: NT-Pro-B Natriuret Pep 995 H 06/30/21 21:10: Urine Color Yellow, Urine Appearance Clear, Urine pH 7.5, Ur Specific [place] 1.010, Urine Protein Trace, Urine Glucose (UA) 3+, Urine Ketones Negative, Urine Blood Negative, Urine Nitrate Negative, Urine Bilirubin Negative, Urine Urobilinogen 0.2, Ur Leukocyte Esterase Negative, Urine RBC None, Urine WBC 3-5, Ur Squamous Epith Cells Occasional, Urine Bacteria None 06/30/21 23:54: POC Glucose 315 H* 07/01/21 00:00: Troponin I < 0.01 Result diagrams: 06/30/21 20:20 06/30/21 20:20 Orders (Tests/Meds): ED MEDICATIONS Generic Name Dose Route Start Last Admin Trade Name Freq PRN Reason Stop Dose Admin Sodium Chloride 1,000 mls @ 999 mls/hr 06/30/21 21:15 06/30/21 21:09 So
[2021-06-30 22:16] VITALS: BP 161/73; PULSE 76; RESP 18; O2SAT 95
[2021-06-30 22:19] LABS: Procalcitonin 0.212 ng/mL (0.0-2.0)
--- NOTE | 2021-06-30 22:27 | CT_ITS ---
PROCEDURE INFORMATION: Exam: CTA Chest With Contrast Exam date and time: 06/30/2021 10:27 PM Age: 66 years old Clinical indication: Sternal or substernal pain; Prior surgery; Surgery date: 6+ months; Surgery type: Open heart surgery TECHNIQUE: Imaging protocol: Computed tomographic angiography of the chest with contrast. 3D rendering (Not supervised by radiologist): MIP and/or 3D reconstructed images were created by the technologist. Radiation optimization: All CT scans at this facility use at least one of these dose optimization techniques: automated exposure control; mA and/or kV adjustment per patient size (includes targeted exams where dose is matched to clinical indication); or iterative reconstruction. Contrast material: ISOVUE 370; Contrast volume: 70 ml; Contrast route: INTRAVENOUS (IV); COMPARISON: CR XR CHEST 2V 06/30/2021 9:14 PM FINDINGS: Pulmonary arteries: Normal. No pulmonary emboli. Aorta: There is moderate calcific atherosclerotic disease of the thoracic aorta without aneurysmal dilatation. Lungs: Dependent bilateral lung base opacities favor atelectasis. Patchy subpleural predominant ground-glass opacities are concerning for atypical infection, possibly mild changes of influenza like illness. Patchy subpleural predominant ground-glass opacities are concerning for atypical infection, possibly mild changes of influenza like illness in the appropriate clinical setting. Pleural spaces: Unremarkable. No pneumothorax. No pleural effusion. Heart: Moderate three-vessel calcific atherosclerotic disease of the coronary arteries. Postsurgical changes compatible with CABG. Lymph nodes: Prominent mediastinal and hilar lymph nodes are likely reactive. Gallbladder and bile ducts: Gallbladder appears contracted with multiple cholelith, without inflammatory changes. Bones/joints: Unremarkable. No acute fracture. Soft tissues: Unremarkable. IMPRESSION: 1. Patchy subpleural predominant ground-glass opacities are concerning for atypical infection, possibly mild changes of influenza like illness. 2. No CT angiography evidence of pulmonary embolism.
[2021-06-30 22:44] LABS: NT Pro Brain Natriuretic Pep. 995 pg/mL (0-125)
[2021-06-30 22:50] LABS: Erythrocyte Sedimentation Rate > 140 mm/hr (0-20)
[2021-06-30 22:57] VITALS: BP 156/74; PULSE 76; O2SAT 95
--- NOTE | 2021-06-30 23:09 | PC.NURSE ---
PT TO RADIOLOGY AT THIS TIME
--- NOTE | 2021-06-30 23:22 | PC.NURSE ---
PT BACK FROM RADIOLOGY AT THIS TIME
[2021-06-30 23:27] VITALS: BP 170/66; PULSE 77; O2SAT 95
[2021-07-01] LABS: POC Glucose,Bedside 315 (70-110)
[2021-07-01 00:08] VITALS: BP 183/83; PULSE 79; O2SAT 93
[2021-07-01 00:25] LABS: Troponin I < 0.01 ng/ml (0.00-0.034)
[2021-07-01 00:34] VITALS: BP 187/76; PULSE 74; O2SAT 94
[2021-07-01 00:38] VITALS: BP 167/76; PULSE 76; RESP 20; TEMP 36.7; O2SAT 96
== END 2021-07-01 00:54 | disposition home or self-care (01) ==
PROVIDERS: Emergency Provider Emergency Medicine; PCP Physician Assistant
DX: R07.2 Precordial pain (principal); U07.1 COVID-19; E11.65 Type 2 diabetes mellitus with hyperglycemia; I10 Essential (primary) hypertension; E78.5 Hyperlipidemia, unspecified; Z79.899 Other long term (current) drug therapy
CPT/HCPCS: 71046; 71275; 80053; 81001; 82962; 83605; 83735; 83880; 84145; 84484; 85025; 85651; 86140; 87040; 93005; 96365; 96375; 99283; Q9967

== ENCOUNTER → 2021-08-15 10:23 | Outpatient (CLI) | payer MEDICARE, SELFPAY ==
--- NOTE | 2021-08-15 10:27 | XR_ITS ---
FINAL REPORT CLINICAL HISTORY: right knee pain FINDINGS: 4 weight-bearing views of the right knee were obtained. There is no acute fracture or dislocation. There are mild degenerative changes. There is a soft tissue calcification medially. Postoperative changes are seen medially. IMPRESSION: Mild degenerative change. Reviewed, Interpreted and Dictated by Hair Meza III, MD Transcribed by Dayne Anthony Authenticated by Hair Meza III, MD on 08/15/2021 12:52:54 PM [facility]
== END ==
LOC: RAD 10:24
PROVIDERS: PCP Physician Assistant; Visit Provider Orthopaedic Surgery
DX: M25.561 Pain in right knee (principal)
CPT/HCPCS: 73564

== ENCOUNTER 2021-09-09 15:33 | Observation (INO) | payer MEDICARE, SELFPAY ==
--- NOTE | 2021-09-09 15:29 | ECG_ITS ---
APPROVED REPORT Exam: Resting ECG HR:90 bpm ECG Measurements Heart Rate 90 AXES TN 161 P -8 QRSd 146 QRS 127 QT 404 T -1 QTc 452 Conclusion SINUS RHYTHM RIGHT BUNDLE BRANCH BLOCK [120+ ms QRS DURATION, UPRIGHT V1, 40+ ms S IN I/aVL/V4/V5/V6] LEFT POSTERIOR FASCICULAR BLOCK [QRS AXIS > 109, INFERIOR Q] ABNORMAL ECG UNCONFIRMED REPORT Electronically signed by : Estrada Gar MD 09/10/2021 19:51:44
[2021-09-09 15:33] VITALS: BP 193/83; PULSE 89; RESP 18; TEMP 36.8; O2SAT 95; BMI 41.3
[2021-09-09 15:38] VITALS: BMI 41.3
--- NOTE | 2021-09-09 15:41 | XR_ITS ---
PROCEDURE INFORMATION: Exam: XR Chest Exam date and time: 09/09/2021 3:41 PM Age: 66 years old Clinical indication: Shortness of breath; Prior surgery; Surgery date: 6+ months; Surgery type: Cabg, cardiac stents. ; Additional info: Soa/chest tightness TECHNIQUE: Imaging protocol: XR of the chest. Views: 2 views. COMPARISON: CR XR CHEST 2V 06/30/2021 9:14 PM FINDINGS: Tubes, catheters and devices: There are sternal wires consistent with previous sternotomy incision. Lungs: Nonspecific bibasilar consolidation is present, consistent with atelectasis, edema, or pneumonia. Pleural spaces: Bilateral pleural effusions. Heart/Mediastinum: Heart demonstrates mild diffuse enlargement. Bones/joints: Unremarkable. IMPRESSION: 1. Mild cardiomegaly. 2. Nonspecific bibasilar consolidation is present, consistent with atelectasis, edema, or pneumonia. 3. Bilateral pleural effusions.
--- NOTE | 2021-09-09 15:48 | PC.NURSE ---
Pt to rad.
[2021-09-09 15:54] LABS: Basophils # 0.1 K/mm3 (0-0.2); Basophils % 0.9 % (0.1-2.0); Eosinophils # 0.2 K/mm3 (0.0-0.4); Eosinophils % 2.9 % (0.1-12.0); Hematocrit 41.2 % (42.0-52.0); Hemoglobin 12.8 g/dL (14.1-18.0); Lymphocytes # 1.1 K/mm3 (0.7-4.5); Lymphocytes % 16.7 % (10-50); Mean Corpuscular Hemoglobin 27.2 pg (27.0-31.2); Mean Corpuscular Volume 87.8 fl (80-94); Mean Platelet Volume 8.6 fl (7.4-10.4); Monocytes # 0.4 K/mm3 (0.1-1.0); Monocytes % 6.5 % (1.7-9.3); Neutrophils # 4.6 K/mm3 (1.8-7.8); Platelet Count 211 K/mm3 (142-424); White Blood Count 6.3 K/mm3 (4.8-10.8)
[2021-09-09 15:56] LABS: Chloride 99 mmol/L (98-107); Potassium 4.1 mmoL/L (3.5-5.1); Sodium 132 mmol/L (136-145)
[2021-09-09 15:59] LABS: Alanine Aminotransferase 17 U/L (12-78); Albumin Level 4.1 g/dl (3.5-5.0); Albumin/Globulin Ratio 1.4 (1.1-1.8); Alkaline Phosphatase 109 U/L (38-126); Anion Gap 11.1 mEq/L (5-15); Aspartate Amino Transferase 22 U/L (17-59); Bilirubin,Total 2.2 mg/dl (0.2-1.3); Blood Urea Nitrogen 13 mg/dl (9-20); Carbon Dioxide 26 mmol/L (22.0-30.0); Creatinine Clearance Estimated 51 mL/min (50-200); Estimated Glomerular Filt Rate 44 ml/min (>60); GFR (African American) 53 ML/MIN (>60); Total Protein,Serum 7.1 g/dl (6.3-8.2)
[2021-09-09 16:00] LABS: Calcium 8.6 mg/dl (8.4-10.2); Glucose 190 mg/dl (74-100)
[2021-09-09 16:01] VITALS: BP 167/79; PULSE 81; RESP 20; O2SAT 94
[2021-09-09 16:09] LABS: NT Pro Brain Natriuretic Pep. 893 pg/mL (0-125)
[2021-09-09 16:12] LABS: Troponin I < 0.01 ng/ml (0.00-0.034)
--- NOTE | 2021-09-09 17:31 | HMH.EDGENADL ---
ED Disposition Clinical Impression: Unstable angina Congestive heart failure Qualifiers: Heart failure type: unspecified Heart failure chronicity: acute on chronic Qualified Code(s): I50.9 - Heart failure, unspecified Disposition: Admitted As Inpatient Condition on Discharge: Fair Referrals: Elaina Carvalho PA [Primary Care Provider] - - Critical Care Critical Care Time: No Attestation: On 09/09/21, the high probability of a clinically significant, sudden or life threatening deterioration of the following system(s) required my full and direct attention, intervention and personal management. The time I documented below is in addition to time spent performing reported procedures but includes the following listed in this critical care notation. Medical Decision Making - Harman Inquiry Pt receiving controlled substance: No Vital Signs: 09/09/21 15:33 09/09/21 16:01 Temperature 98.3 F Temperature Source Oral Pulse Rate 81 Pulse Rate [Left Radial] 89 Respiratory Rate 18 20 Blood Pressure 167/79 H Blood Pressure [Right Arm] 193/83 H Blood Pressure Mean 108 Blood Pressure Mean [Right Arm] 119 Blood Pressure Source [Right Arm] Automatic Cuff Blood Pressure Position [Right Arm] Sitting 02 Sat by Pulse Oximetry 95 94 L Oxygen Delivery Method Room Air - Lab Data Lab Results 09/09/21 15:40: WBC 6.3, RBC 4.70, Hgb 12.8 L, Hct 41.2 L, MCV 87.8, MCH 27.2, MCHC 31.0 L, RDW 18.0 H, Plt Count 211, MPV 8.6, Neut % (Auto) 73.0, Lymph % (Auto) 16.7, [place] % (Auto) 6.5, Eos % (Auto) 2.9, Baso % (Auto) 0.9, Neut # (Auto) 4.6, Lymph # (Auto) 1.1, [place] # (Auto) 0.4, Eos # (Auto) 0.2, Baso # (Auto) 0.1 09/09/21 15:40: Sodium 132 L, Potassium 4.1, Chloride 99, Carbon Dioxide 26, Anion Gap 11.1, BUN 13, Creatinine 1.60 H, Estimated Creat Clear 51, Estimated GFR 44 L, Est GFR ( Amer) 53 L, Glucose 190 H, Calcium 8.6, Total Bilirubin 2.2 H, AST 22, ALT 17, Alkaline Phosphatase 109, Troponin I < 0.01, Total Protein 7.1, Albumin 4.1, Globulin 3.0, Albumin/Globulin Ratio 1.4 09/09/21 15:40: NT-Pro-B Natriuret Pep 893 H 09/09/21 18:45: Troponin I < 0.01 Result diagrams: 09/09/21 15:40 09/09/21 15:40 Orders (Tests/Meds): ED MEDICATIONS Generic Name Dose Route Start Last Admin Trade Name Freq PRN Reason Stop Dose Admin Sodium Chloride 10 ml 09/09/21 15:39 Sodium Chloride 0.9% 10ml Flush Syringe IV 10/09/21 15:38 NEEDED PRN Maintain IV Site Discontinued Medications Generic Name Dose Route Start Last Admin Trade Name Freq PRN Reason Stop Dose Admin Furosemide 40 mg 09/09/21 19:00 09/09/21 19:07 Furosemide 40mg/4ml Vial IV 09/09/21 19:01 40 mg ONCE ONE Administration ORDERS Category Date Time Status Rapid PCR Covid and Flu A/B Stat Lab 09/09/21 19:06 Received TSH [Thyroid Stimulating Hormone] Stat Lab 09/09/21 15:40 Received Troponin I Q3H Lab 09/09/21 21:45 Ordered - Radiology Data #1 Image(s): Chest Image Reviewed: Yes I have reviewed radiologist's interpretation PROCEDURE INFORMATION: Exam: XR Chest Exam date and time: 09/09/2021 3:41 PM Age: 66 years old Clinical indication: Shortness of breath; Prior surgery; Surgery date: 6+ months; Surgery type: Cabg, cardiac stents. ; Additional info: Soa/chest tightness TECHNIQUE: Imaging protocol: XR of the chest. Views: 2 views. COMPARISON: CR XR CHEST 2V 06/30/2021 9:14 PM FINDINGS: Tubes, catheters and devices: There are sternal wires consistent with previous sternotomy incision. Lungs: Nonspecific bibasilar consolidation is present, consistent with atelectasis, edema, or pneumonia. Pleural spaces: Bilateral pleural effusions. Heart/Mediastinum: Heart demonstrates mild diffuse enlargement. Bones/joints: Unremarkable. IMPRESSION: 1. Mild cardiomegaly. 2. Nonspecific bibasilar consolidation is present, consistent with atelectasis, edema, or pneumonia.
[2021-09-09 19:08] LABS: Coronavirus 19, PCR Not Detected (NotDetected); Influenza A, PCR Not Detected (NotDetected); Influenza B, PCR Not Detected (NotDetected)
[2021-09-09 19:17] LABS: Troponin I < 0.01 ng/ml (0.00-0.034)
[2021-09-09 19:41] LABS: Thyroid Stimulating Hormone 1.99 uIU/mL (0.465-4.68)
--- NOTE | 2021-09-09 20:22 | HMH.HP ---
*Admission Date: 09/09/21 *Chief complaint: soa *History of present illness: 66 yr old male presented to ed with c/o of soa and cp with walking. Patient has a history of congestive heart failure and coronary artery disease with prior coronary bypass surgery and cardiac stenting after his surgery. Pt states chest discomfort, leg edema and shortness of breath with exertion for the past 2 weeks. He states at 3 AM he was awaken with short of breath even though he was on his BiPAP. Pt was found to be in CHF and admitted for cardiac work up, echo, cardiology consult [facility] History I have reviewed the patient's past medical history: Yes Medical History: Reports:: Congestive Heart Failure, Coronary Artery Disease, Diabetes Mellitus Type 2, Hyperlipidemia, Hypertension, Palpitations, Renal Disease, Transient Ischemic Attacks (TIA) *Have you ever received a pneumonia vaccine?: No *Have you received a flu vaccine this season?: No Other Medical History: Reports: Anemia, Arthritis, Cataracts, Liver Disease Laterality Cases: Left: Carpal Tunnel Release, Right: Arthroscopy Knee Other Surgeries: Yes: Appendectomy, Cardiac Catheterization, Cardiac Surgery, Cholecystectomy, Colonoscopy, Coronary Stent, Hernia Repair, Open Heart Surgery Amputation: No Fractures: No - *Social History Smoking Status: Never smoker Alcohol Intake: never Substance Use Type: denies use *Occupational Status:: disabled Housing: house Household Members: family *Travel in the last 8 weeks: None Family Hx:: Heart Attack, Coronary Artery Disease, Diabetes, Hypertension, Hyperlipidemia, Kidney Disease, Thyroid Disorder, Other Review of Systems - Review of Systems Review of systems:: pertinent systems reviewed and negative unless documented below - Constitutional Reports weakness, Reports weight gain, Denies fatigue - Eyes Denies blurry vision - ENT Reports bleeding gums, Denies nasal discharge - *Cardiovascular Reports chest pain, Reports chest pain at rest, Reports chest pain with activity, Reports shortness of breath, Reports leg swelling - *Respiratory Reports cough, Reports shortness of breath, Reports shortness of breath with activity - *Gastrointestinal Denies abdominal pain - *Genitourinary Denies urinary frequency - *Musculoskeletal Denies limited joint movement - Integumentary/Breasts Denies bleeding lesions, Denies rash - *Neurologic Denies dizziness - Psychiatric Denies lack of enjoyment - Endocrine Denies excessive sweating - Hematologic/Lymphatic Denies easy bruising - Allergic/Immunologic Denies itchy eyes Meds Home Medications Medication Instructions Recorded Confirmed Type Levothyroxine Sodium 75 mcg PO DAILY 06/19/19 09/09/21 History [Levothyroxine 75mcg (0.075mg) Tab] carvedilol 25 mg tablet 50 mg PO BID tab 01/11/21 09/09/21 History hydralazine 100 mg tablet 100 mg PO BID 01/11/21 09/09/21 History insulin human U-100 NPH-regulr 72 unit SQ BID ml 01/11/21 09/09/21 History 70-30 mix 100 unit/mL subcutaneous susp omeprazole 40 mg capsule,delayed 40 mg PO DAILY cap 01/11/21 09/09/21 History release ranolazine 500 mg tablet,extended 500 mg PO BID tab 01/11/21 09/09/21 History release,12 hr tamsulosin 0.4 mg capsule 0.4 mg PO DAILY 01/11/21 09/09/21 History Calcium Carb/Magnesium Oxid/D3 1 each PO TID 06/02/21 09/09/21 History [Calcium Magnesium + D Tablet] Ergocalciferol (Vitamin D2) 1,250 mcg PO WEEKLY 06/02/21 09/09/21 History [Drisdol] Amlodipine Besylate [Amlodipine 10 mg PO DAILY 06/04/21 09/09/21 History 10mg Tab] Aspirin [Aspirin 81mg EC Tab] 81 mg PO DAILY 06/04/21 09/09/21 History Gabapentin 300 mg PO TID 06/04/21 09/09/21 History Isosorbide Mononitrate [Isosorbide 90 mg PO DAILY 06/04/21 09/09/21 History Mononitrate ER] Rosuvastatin Calcium [Crestor 40mg 40 mg PO HS 06/04/21 09/09/21 History Tablets] Torsemide 10 mg PO DAILY 06/04/21 09/09/21 History cephALEXin [cephA
[2021-09-09 21:58] VITALS: BP 164/45; PULSE 80; RESP 20; TEMP 36.8; O2SAT 95
[2021-09-09 22:00] VITALS: BP 167/73; PULSE 92; RESP 18; TEMP 36.9; O2SAT 93; BMI 42.9
--- NOTE | 2021-09-09 22:15 | PC.NURSE ---
2210 pt arrived to unit via wheelchair from ED
[2021-09-09 22:39] VITALS: PULSE 100
[2021-09-09 23:00] VITALS: O2SAT 93
[2021-09-09 23:04] LABS: Troponin I < 0.01 ng/ml (0.00-0.034)
[2021-09-09 23:38] LABS: POC Glucose,Bedside 217 (70-110)
[2021-09-10] VITALS: BP 166/77; PULSE 80; PULSE 83; RESP 18; TEMP 36.9; O2SAT 92
[2021-09-10 04:00] VITALS: BP 144/65; PULSE 70; RESP 18; TEMP 36.9; O2SAT 91
--- NOTE | 2021-09-10 05:01 | PC.NURSE ---
pt has rested intermittently this shift, has remained on room air, O2 sats 91-93%, no complaints of pain or SOA, HR 70-92, telemetry shows BBB, UOP this shift of 1400 mL
[2021-09-10 05:23] VITALS: BMI 42.8
[2021-09-10 05:39] LABS: POC Glucose,Bedside 163 (70-110)
[2021-09-10 06:19] LABS: Anion Gap 9.7 mEq/L (5-15); Blood Urea Nitrogen 12 mg/dl (9-20); Calcium 8.6 mg/dl (8.4-10.2); Carbon Dioxide 28 mmol/L (22.0-30.0); Chloride 102 mmol/L (98-107); Creatinine Clearance Estimated 55 mL/min (50-200); Estimated Glomerular Filt Rate 47 ml/min (>60); GFR (African American) 57 ML/MIN (>60); Glucose 178 mg/dl (74-100); Potassium 3.7 mmoL/L (3.5-5.1); Sodium 136 mmol/L (136-145)
--- NOTE | 2021-09-10 07:38 | HMH.PHAVTE ---
[facility] Pharmacy VTE Monitoring - Patient Demographics Admission date: 09/10/21 Report Date: 09/10/21 Time: 07:38 Allergies/Adverse Reactions: Patient Allergies Iodinated Contrast Media [IODINATED CONTRAST MEDIA - IV DYE] Allergy (Unknown, Verified 09/10/21 00:05) I-HIVFRANKO Height: 1.83 m Weight: 143.517 kg Patient Problems: Current Active Problems Obesity (BMI 30-39.9) (Acute) Unstable angina (Acute) Congestive heart failure (Acute) Hypothyroidism (Chronic) CAD (coronary atherosclerotic disease) (Chronic) Hyperlipidemia (Chronic) Essential hypertension (Chronic) Diabetes mellitus (Chronic) Chest pain (Acute) - VTE Risk Labs: VTE Related Lab Results Hgb 12.8 g/dL (14.1-18.0) L 09/09/21 15:40 Hct 41.2 % (42.0-52.0) L 09/09/21 15:40 Plt Count 211 K/mm3 (142-424) 09/09/21 15:40 BUN 12 mg/dl (9-20) 09/10/21 05:35 Creatinine 1.50 mg/dl (0.66-1.25) H 09/10/21 05:35 Estimated Creat Clear 55 mL/min (50-200) 09/10/21 05:35 Was VTE Risk Assessment Performed: Yes VTE Score: 5 VTE Risk Level: Low Risk Clinical Trial Participant: No - Prophylaxis VTE Prophylaxis Ordered?: Yes Types of VTE Prophylaxis: TEDS Knee High
[2021-09-10 08:00] VITALS: BP 154/71; PULSE 72; RESP 18; TEMP 36.8; O2SAT 92
[2021-09-10 08:34] LABS: Basophils % 0.8 % (0.1-2.0); Eosinophils # 0.2 K/mm3 (0.0-0.4); Eosinophils % 3.5 % (0.1-12.0); Hematocrit 37.7 % (42.0-52.0); Hemoglobin 11.9 g/dL (14.1-18.0); Lymphocytes # 1.2 K/mm3 (0.7-4.5); Lymphocytes % 19.9 % (10-50); Mean Corpuscular HGB Conc 31.7 g/dL (31.8-35.4); Mean Corpuscular Hemoglobin 28.2 pg (27.0-31.2); Mean Corpuscular Volume 89.1 fl (80-94); Mean Platelet Volume 9.2 fl (7.4-10.4); Monocytes # 0.4 K/mm3 (0.1-1.0); Monocytes % 7.4 % (1.7-9.3); Neutrophils % 68.4 % (37.0-80.0); Platelet Count 201 K/mm3 (142-424); Red Blood Count 4.22 M/mm3 (4.60-6.20); White Blood Count 5.9 K/mm3 (4.8-10.8)
--- NOTE | 2021-09-10 09:17 | HMH.PHAINT ---
HOME MEDICATION LIST VERIFIED USING LIST FROM OUTPATIENT PHARMACY
--- NOTE | 2021-09-10 09:43 | HMH.ACPN2 ---
Internal Medicine - PN: Subj *Date: 09/10/21 *Time: 12:48 Interval history: 66-year-old male patient sitting up in bed denies any further chest pain or shortness of breath during the night. Current oxygenation 96% on room air, is at bedside Exam Vital signs and Labs for Last 24 Hours: Temp Pulse Resp BP Pulse Ox 98.2 F 72 18 154/71 H 92 L 09/10/21 08:00 09/10/21 08:00 09/10/21 08:00 09/10/21 08:00 09/10/21 08:00 Laboratory Results - last 24 hr 09/09/21 15:40: WBC 6.3, RBC 4.70, Hgb 12.8 L, Hct 41.2 L, MCV 87.8, MCH 27.2, MCHC 31.0 L, RDW 18.0 H, Plt Count 211, MPV 8.6, Neut % (Auto) 73.0, Lymph % (Auto) 16.7, [place] % (Auto) 6.5, Eos % (Auto) 2.9, Baso % (Auto) 0.9, Neut # (Auto) 4.6, Lymph # (Auto) 1.1, [place] # (Auto) 0.4, Eos # (Auto) 0.2, Baso # (Auto) 0.1 09/09/21 15:40: Sodium 132 L, Potassium 4.1, Chloride 99, Carbon Dioxide 26, Anion Gap 11.1, BUN 13, Creatinine 1.60 H, Estimated Creat Clear 51, Estimated GFR 44 L, Est GFR ( Amer) 53 L, Glucose 190 H, Calcium 8.6, Total Bilirubin 2.2 H, AST 22, ALT 17, Alkaline Phosphatase 109, Troponin I < 0.01, Total Protein 7.1, Albumin 4.1, Globulin 3.0, Albumin/Globulin Ratio 1.4 09/09/21 15:40: NT-Pro-B Natriuret Pep 893 H 09/09/21 15:40: TSH 1.99 09/09/21 18:45: Troponin I < 0.01 09/09/21 19:06: SARS-CoV-2 (PCR) Not detected, Influenza A Untype (PCR) Not detected, Influenza Type B (PCR) Not detected 09/09/21 22:25: Troponin I < 0.01 09/09/21 23:29: POC Glucose 217 H 09/10/21 05:32: POC Glucose 163 H 09/10/21 05:35: Sodium 136, Potassium 3.7, Chloride 102, Carbon Dioxide 28, Anion Gap 9.7, BUN 12, Creatinine 1.50 H, Estimated Creat Clear 55, Estimated GFR 47 L, Est GFR ( Amer) 57 L, Glucose 178 H, Calcium 8.6 09/10/21 05:35: WBC 5.9, RBC 4.22 L, Hgb 11.9 L, Hct 37.7 L, MCV 89.1, MCH 28.2, MCHC 31.7 L, RDW 18.0 H, Plt Count 201, MPV 9.2, Neut % (Auto) 68.4, Lymph % (Auto) 19.9, [place] % (Auto) 7.4, Eos % (Auto) 3.5, Baso % (Auto) 0.8, Neut # (Auto) 4.0, Lymph # (Auto) 1.2, [place] # (Auto) 0.4, Eos # (Auto) 0.2, Baso # (Auto) 0.0 I & O for Last 24 hours: Intake & Output 09/07/21 09/08/21 09/09/21 09/10/21 23:59 23:59 23:59 23:59 Output Total 1350 / 1850 1900 / 1900 Balance -1350 / -1850 -1900 / -1900 Weight 316 lb 11.2 oz 316 lb 6.4 oz - Constitutional no acute distress, obese - *Routine HEENT Exam Head: Present: normocephalic Eye: Present: EOMI ENT: Present: mucous membranes moist - *Routine Neck Exam Present: trachea midline. Absent: tracheal deviation - *Routine Respiratory Exam Present: CTA bilaterally. Absent: accessory muscle use - *Routine Cardiovascular Exam Present: RRR - *Routine Abdominal Exam Present: soft, normoactive bowel sounds. Absent: tenderness, firm - *Routine Extremities Exam Present: edema, pulses intact. Absent: cyanosis, clubbing, calf tenderness - *Routine Skin Exam Present: intact, dry. Absent: cyanosis, erythema - *Routine Neurological Exam Present: alert, oriented X3. Absent: motor deficit, altered mental status - Routine Psychiatric Exam Present: normal affect, normal thought process. Absent: auditory hallucinations Assessment and Plan (1) Congestive heart failure Status: Acute Qualifiers: Heart failure type: unspecified Heart failure chronicity: acute on chronic Qualified Code(s): I50.9 - Heart failure, unspecified Category: Medical Code(s): I50.9 - Heart failure, unspecified (2) Chest pain Status: Acute Qualifiers: Chest pain type: precordial pain Qualified Code(s): R07.2 - Precordial pain Category: Medical Code(s): R07.9 - Chest pain, unspecified (3) CAD (coronary atherosclerotic disease) Status: Chronic Category: Medical Code(s): I25.10 - Atherosclerotic heart disease of [place] coronary artery without angina pectoris (4) Diabetes mellitus Status: Chronic Category: Medical Code(s): E11.9 - Type 2 diabetes mellitus without complication
--- NOTE | 2021-09-10 11:43 | HMH.CNCARD ---
History of Present Illness Consult date: 09/10/21 Requesting physician: Jovany Paredes Consult reason: congestive heart failure Chief complaint: CHF Additional Medical History:: 1. CAD A. CABG, 2005 B. [place], about 2019, subsequent LHC with loss of SVG per patient. No stenting. 2. DM, treated for 20 yrs 3. s/p MAHIN endarterectomy A. LICA with 50-60% B. 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 HTN 5. HLD 6. Fatty liver 7. Esophageal stricture with prior stretching 8. Chronic RBBB on EKG 9. 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 Carcamo 10. DANY, CPAP use 11. History of COVID infection, 06/2021 History of present illness: Patient has a history of congestive heart failure and coronary artery disease with prior coronary bypass surgery and cardiac stenting after his surgery. He now complains of exertional chest discomfort and shortness of breath requiring minimal exertion for the past 2 weeks. He says that he had it severely a couple of weeks ago and then he has had it severely for the past couple of days as well. He also has paroxysmal nocturnal dyspnea. He awakened from sleep last night at 3 AM short of breath even though he was on his BiPAP. He has increased swelling of his legs. He says he forgot to take all of his morning medications today including his torsemide. He sees Dr. Jenkins for cardiology in [place], but he is switching to Dr. Carver and has his first appointment scheduled for tomorrow. He has recently had an echocardiogram and a stress test, blood work and an EKG in [place] but does not know the results of those. He states his last heart cath was about a year ago. He says that the artery that was bypassed is completely gone but he has collateralized. He has some partial blockages and others. He did not require any stents a year ago. States he is on Keflex from urologist for chronic UTI. The above per Dr. Mcelroy. Pt confirms above. Lasix given in ER last night with good results and some improvement in SOA. [facility] History Medical History: Reports:: Congestive Heart Failure, Congenital Heart Disease, Coronary Artery Disease, Diabetes Mellitus Type 2, Hyperlipidemia, Hypertension, Palpitations, Renal Disease, Transient Ischemic Attacks (TIA) Denies:: Cancer, Diabetes Mellitus Type 1, MRSA *Have you ever received a pneumonia vaccine?: No *Have you received a flu vaccine this season?: Yes Other Medical History: Reports: Anemia, Arthritis, Cataracts, Liver Disease Laterality Cases: Left: Carpal Tunnel Release, Right: Arthroscopy Knee Other Surgeries: Yes: Appendectomy, Cardiac Catheterization, Cardiac Surgery, Cholecystectomy, Colonoscopy, Coronary Stent, Hernia Repair, Open Heart Surgery Amputation: No Fractures: No - *Social History Smoking Status: Never smoker Alcohol Intake: never Substance Use Type: denies use *Occupational Status:: disabled Housing: house Household Members: family *Travel in the last 8 weeks: None Family Hx:: Coronary Artery Disease, Diabetes, Heart Attack, Hyperlipidemia, Hypertension, Kidney Disease, Thyroid Disorder Meds Home Medications Medication Instructions Recorded Confirmed Type Levothyroxine Sodium 75 mcg PO DAILY 06/19/19 09/10/21 History [Levothyroxine 75mcg (0.075mg) Tab] carvedilol 25 mg tablet 50 mg PO BID tab 01/11/21 09/10/21 History hydralazine 100 mg tablet 100 mg PO BID 01/11/21 09/10/21 History insulin human U-100 NPH-regulr 72 unit SQ BID ml 01/11/21 09/10/21 History 70-30 mix 100 unit/mL subcutaneous susp omeprazole 40 mg capsule,delayed 40 mg PO DAILY cap 01/11/21 09/10/21 History release ranolazine 500 mg tablet,extended 500 mg PO BID tab 01/11/21 09/10/21 History release,12 hr tamsulosin 0.4 mg capsule 0.4 mg PO DAILY 01/11/21 09/10/21 History Calcium Carb/Magnesium Oxid/D3 1 each PO TID 06/02/21 09/10/21 History [Calcium Magnesium + D Tablet] Ergocalciferol (Vitamin D2) 1,250 mcg PO WEEKLY 06/02/21 09/10/21
--- NOTE | 2021-09-10 11:57 | CA_ITS ---
FINAL REPORT TECHNIQUE: Color Doppler, duplex Doppler and hunter scale sonography of the bilateral neck arterial vasculature was performed. Velocities were measured in the carotid arteries. Stenosis evaluation based on the validated velocity criteria. CLINICAL HISTORY: carotid stenosis, prior Right endarterectomy. CAD, HTN, HLD, DM, Obesity FINDINGS: The peak systolic velocity of the right common carotid artery is 90 cm/s. The peak systolic velocity of the right internal carotid artery is 126 cm/s and end diastolic velocity 36 cm/s. The ICA/CCA ratio is 1.47. A mild amount of plaque is present. The right external carotid artery is patent. The right vertebral artery is patent with antegrade flow. The peak systolic velocity of the left common carotid artery is 118 cm/s. The peak systolic velocity of the left internal carotid artery is 241 cm/s and end diastolic velocity 50 cm/s. The ICA/CCA ratio is 2.75. A mild-moderate amount of plaque is present. The left external carotid artery is patent.The left vertebral artery is patent with antegrade flow. IMPRESSION: Less than 50% right carotid stenosis. 50-69% left carotid stenosis. Bilateral patent vertebral arteries with antegrade flow. If indicated, CTA or MRA could further evaluate. Reviewed, Interpreted and Dictated by Hair Meza III, MD Transcribed by Lisa Bassett Authenticated by Hair Meza III, MD on 09/10/2021 03:22:09 PM [facility]
[2021-09-10 12:16] LABS: POC Glucose,Bedside 209 (70-110)
[2021-09-10 16:00] VITALS: BP 134/74; PULSE 72; RESP 18; TEMP 37; O2SAT 93
[2021-09-10 19:57] LABS: POC Glucose,Bedside 251 (70-110)
[2021-09-10 20:00] VITALS: BP 140/59; PULSE 69; PULSE 70; RESP 18; O2SAT 93; O2SAT 94
[2021-09-11] VITALS (25 sets, daily range): BP systolic 129–168; BP diastolic 55–83; PULSE 60–90; RESP 16–20; TEMP 36.4–37.1; O2SAT 90–96; BMI 42.7
--- NOTE | 2021-09-11 | IR_ITS ---
APPROVED REPORT Patient Location: Inpatient PROCEDURES Left heart catheterization Left ventriculogram Selective coronary angiogram Left internal mammary angiography Selective engagement of saphenous vein graft to circumflex artery Selective engagement saphenous vein graft to the right coronary artery Bilateral selective renal angiography Drug-eluting stent deployment to the ostial proximal right renal artery INDICATION Coronary artery disease, History of coronary bypass surgery, Systolic congestive heart failure, Chronic renal failure creatinine 1.9, Known renal artery stenosis, Renovascular hypertension Informed consent was obtained prior to the procedure. COMPLICATIONS NONE Estimated Blood Loss: less than 10 ml TECHNIQUE One percent lidocaine used to anesthetize the right groin. The right femoral artery was accessed via the Seldinger technique and a 5 Ben[place] sheath was placed in the right femoral artery. A JL 4, JR4 catheter were used to perform left heart catheterization, left ventriculogram selective coronary angiography as well as selective engagement of the 2 vein grafts and the left internal mammary artery. The JR4 catheter was used to perform selective angiography of each renal artery. At the end the diagnostic angiogram therapeutic heparin was administered and a 5 Beninese sheath was exchanged for a 6 Beninese sheath. A JR4 guide catheter was placed in the right renal artery and a Choice PT extra-support wire was placed distally. A 5 mm x 15 mm resolute [place] stent was placed in the ostial proximal portion of the right renal artery and deployed at 24 samaria reducing the stenosis to 0%. At the end of the procedure the apparatus was removed the groin is reprepped closure change sheath was removed hemostasis was not achieved with an attempted Perclose device however this was switched to Angio-Seal and good hemostasis was achieved. Patient was transferred to the postop already in stable condition ANGIOGRAPHIC RESULTS The left main artery Has an ostial 30% stenosis The left anterior descending artery Is patent the proximal segment with proximal 50% stenoses and then occluded after a large septal lumber cutter and large first diagonal artery. The diagonal artery although was comparatively large still small caliber and has a proximal 60% concentric stenosis. The diagonal artery is less than 2 mm in diameter. The circumflex artery Is a small caliber vessel proximally and has an ostial proximal 80% stenosis. It does not give rise to any substantive obtuse marginal arteries The right coronary artery Is nondominant and occluded at mid vessel The DELEON ventriculogram reveals Dilated ventricle inferior wall hypokinesis apical hypokinesis estimate ejection fraction 30 to 35% The left ventricular end-diastolic pressure 20 mmHg GUZMAN is patent to an LAD Saphenous vein graft is patent to the dominant circumflex artery Saphenous vein graft to right coronary is ostially occluded Left renal artery singular has a stent in the ostial proximal segment which is ostially occluded Right renal artery singular has a stent in the ostial proximal segment which has 70 to 80% eccentric in-stent restenosis IMPRESSION Coronary disease as described above Left ventricular systolic dysfunction as described above Elevated LVEDP as described above Occluded left renal artery Severe in-stent restenosis within an ostial proximal solitary right renal artery Successful percutaneous revascularization of the ostial proximal right renal artery severe disease reduced to 0% with 1 drug-eluting stent PLAN 1. Dual antiplatelet therapy for drug-eluting stent and renal artery 2. Medical management for systolic heart failure 3. Medical manageme
[2021-09-11 06:04] LABS: POC Glucose,Bedside 178 (70-110)
[2021-09-11 06:43] LABS: Basophils # 0.1 K/mm3 (0-0.2); Basophils % 0.7 % (0.1-2.0); Eosinophils # 0.2 K/mm3 (0.0-0.4); Eosinophils % 2.7 % (0.1-12.0); Hematocrit 41.1 % (42.0-52.0); Hemoglobin 12.2 g/dL (14.1-18.0); Lymphocytes # 1.2 K/mm3 (0.7-4.5); Lymphocytes % 18.9 % (10-50); Mean Corpuscular HGB Conc 29.6 g/dL (31.8-35.4); Mean Corpuscular Hemoglobin 27.5 pg (27.0-31.2); Mean Platelet Volume 8.5 fl (7.4-10.4); Monocytes # 0.4 K/mm3 (0.1-1.0); Monocytes % 6.1 % (1.7-9.3); Neutrophils # 4.6 K/mm3 (1.8-7.8); Neutrophils % 71.6 % (37.0-80.0); Platelet Count 223 K/mm3 (142-424); Red Blood Count 4.42 M/mm3 (4.60-6.20); Red Cell Distribution Width 18.7 % (11.5-17.5); White Blood Count 6.4 K/mm3 (4.8-10.8)
[2021-09-11 06:54] LABS: Anion Gap 11.4 mEq/L (5-15); Blood Urea Nitrogen 18 mg/dl (9-20); Calcium 8.9 mg/dl (8.4-10.2); Carbon Dioxide 31 mmol/L (22.0-30.0); Chloride 99 mmol/L (98-107); Creatinine Clearance Estimated 43 mL/min (50-200); Estimated Glomerular Filt Rate 36 ml/min (>60); GFR (African American) 43 ML/MIN (>60); Glucose 195 mg/dl (74-100); Potassium 4.4 mmoL/L (3.5-5.1); Sodium 137 mmol/L (136-145)
--- NOTE | 2021-09-11 08:46 | HMH.ACPN2 ---
Internal Medicine - PN: Subj *Date: 09/11/21 *Time: 13:46 Interval history: 66-year-old male patient sitting up in bed he denies any chest pain or shortness of breath during the night but still reports, shortness of breath with any kind of activity. Current oxygenation 94% on room air Exam Vital signs and Labs for Last 24 Hours: Temp Pulse Resp BP Pulse Ox 97.6 F 82 18 163/80 H 93 L 09/11/21 11:37 09/11/21 11:37 09/11/21 11:37 09/11/21 11:37 09/11/21 11:37 Laboratory Results - last 24 hr 09/10/21 19:50: POC Glucose 251 H 09/11/21 05:56: POC Glucose 178 H 09/11/21 06:18: WBC 6.4, RBC 4.42 L, Hgb 12.2 L, Hct 41.1 L, MCV 93.0, MCH 27.5, MCHC 29.6 L, RDW 18.7 H, Plt Count 223, MPV 8.5, Neut % (Auto) 71.6, Lymph % (Auto) 18.9, [place] % (Auto) 6.1, Eos % (Auto) 2.7, Baso % (Auto) 0.7, Neut # (Auto) 4.6, Lymph # (Auto) 1.2, [place] # (Auto) 0.4, Eos # (Auto) 0.2, Baso # (Auto) 0.1 09/11/21 06:18: Sodium 137, Potassium 4.4, Chloride 99, Carbon Dioxide 31 H, Anion Gap 11.4, BUN 18 D, Creatinine 1.90 H D, Estimated Creat Clear 43, Estimated GFR 36 L, Est GFR ( Amer) 43 L D, Glucose 195 H, Calcium 8.9 09/11/21 11:29: POC Glucose 254 H I & O for Last 24 hours: Intake & Output 09/08/21 09/09/21 09/10/21 09/11/21 23:59 23:59 23:59 23:59 Intake Total 480 / 480 Output Total 1350 / 1850 4800 / 5700 2950 / 2950 Balance -1350 / -1850 -4320 / -5220 -2950 / -2950 Weight 316 lb 11.2 oz 316 lb 6.4 oz 315 lb 4.176 oz - Constitutional no acute distress, obese - *Routine HEENT Exam Head: Present: normocephalic Eye: Present: EOMI ENT: Present: mucous membranes moist - *Routine Neck Exam Present: trachea midline. Absent: tracheal deviation - *Routine Respiratory Exam Present: CTA bilaterally. Absent: accessory muscle use - *Routine Cardiovascular Exam Present: RRR - *Routine Abdominal Exam Present: soft, normoactive bowel sounds. Absent: tenderness, firm - *Routine Extremities Exam Present: edema, full ROM, pulses intact. Absent: cyanosis, clubbing - *Routine Skin Exam Present: intact, dry. Absent: cyanosis, erythema - *Routine Neurological Exam Present: alert, oriented X3. Absent: altered mental status - Routine Psychiatric Exam Present: normal affect, normal thought process. Absent: tactile hallucinations Assessment and Plan (1) Congestive heart failure Status: Acute Qualifiers: Heart failure type: unspecified Heart failure chronicity: acute on chronic Qualified Code(s): I50.9 - Heart failure, unspecified Category: Medical Code(s): I50.9 - Heart failure, unspecified (2) Chest pain Status: Acute Qualifiers: Chest pain type: precordial pain Qualified Code(s): R07.2 - Precordial pain Category: Medical Code(s): R07.9 - Chest pain, unspecified (3) Obesity (BMI 30-39.9) Status: Acute Category: Medical Code(s): E66.9 - Obesity, unspecified (4) CAD (coronary atherosclerotic disease) Status: Chronic Category: Medical Code(s): I25.10 - Atherosclerotic heart disease of [place] coronary artery without angina pectoris (5) Diabetes mellitus Status: Chronic Category: Medical Code(s): E11.9 - Type 2 diabetes mellitus without complications (6) Essential hypertension Status: Chronic Category: Medical Code(s): I10 - Essential (primary) hypertension (7) Hyperlipidemia Status: Chronic Category: Medical Code(s): E78.5 - Hyperlipidemia, unspecified (8) Hypothyroidism Status: Chronic Category: Medical Code(s): E03.9 - Hypothyroidism, unspecified (9) Chronic kidney disease Status: Acute Category: Medical Code(s): N18.9 - Chronic kidney disease, unspecified - Assessment and plan all Dx Assessment and Plan for all problems:: Rounded with Dr. Paredes, all orders per Dr. Paredes: 1. Plan for cardiac catheterization today 2. Continue current medical regimen
--- NOTE | 2021-09-11 11:23 | HMH.PNCARD ---
Subjective Date: 09/11/21 Time: 11:23 Principal diagnosis: CHF, unstable angina Interval history: 66-year-old white male in bed in no acute distress. States his breathing has improved as well as his lower extremity edema after starting IV Lasix. Discussed recommendation for left heart catheterization with grafts and patient is agreeable to proceed. He has asked that a Graham catheter be placed due to his frequent need for urination even prior to the IV Lasix. Exam Vital signs and Labs for Last 24 Hours: Temp Pulse Resp BP Pulse Ox 97.7 F 73 17 137/71 94 L 09/11/21 07:57 09/11/21 07:57 09/11/21 07:57 09/11/21 07:57 09/11/21 07:57 Laboratory Results - last 24 hr 09/10/21 12:06: POC Glucose 209 H 09/10/21 19:50: POC Glucose 251 H 09/11/21 05:56: POC Glucose 178 H 09/11/21 06:18: WBC 6.4, RBC 4.42 L, Hgb 12.2 L, Hct 41.1 L, MCV 93.0, MCH 27.5, MCHC 29.6 L, RDW 18.7 H, Plt Count 223, MPV 8.5, Neut % (Auto) 71.6, Lymph % (Auto) 18.9, [place] % (Auto) 6.1, Eos % (Auto) 2.7, Baso % (Auto) 0.7, Neut # (Auto) 4.6, Lymph # (Auto) 1.2, Dup[place] # (Auto) 0.4, Eos # (Auto) 0.2, Baso # (Auto) 0.1 09/11/21 06:18: Sodium 137, Potassium 4.4, Chloride 99, Carbon Dioxide 31 H, Anion Gap 11.4, BUN 18 D, Creatinine 1.90 H D, Estimated Creat Clear 43, Estimated GFR 36 L, Est GFR ( Amer) 43 L D, Glucose 195 H, Calcium 8.9 I & O for Last 24 hours: Intake & Output 09/08/21 09/09/21 09/10/21 09/11/21 11:59 11:59 11:59 11:59 Intake Total 480 / 480 Output Total 3250 / 3250 5050 / 5050 Balance -3250 / -3250 -4570 / -4570 Weight 316 lb 6.4 oz - Constitutional no acute distress - *Routine Respiratory Exam Present: CTA bilaterally - *Routine Cardiovascular Exam Present: RRR - *Routine Extremities Exam Present: edema. Absent: cyanosis, clubbing - *Routine Neurological Exam Present: alert, oriented X3 Progress Note: A&P (1) Congestive heart failure Status: Acute (2) Chest pain Status: Acute (3) Obesity (BMI 30-39.9) Status: Acute (4) CAD (coronary atherosclerotic disease) Status: Chronic (5) Diabetes mellitus Status: Chronic (6) Essential hypertension Status: Chronic (7) Hyperlipidemia Status: Chronic (8) Hypothyroidism Status: Chronic (9) Chronic kidney disease Status: Acute Assessment and Plan for All Diagnoses:: 1. Acute on chronic Systolic CHF. IV lasix. Echo EF 45-50%. Patient is on ARB and beta-bryce therapy. 2. DM, per PCP 3. CAD, prior CABG. symptoms of unstable angina but with normal troponins this admission. Continue coreg, imdur and ranexa. Plan for left heart catheterization with grafts today. 4. CKD, monitor labs since starting ARB and IV Lasix. Creatinine has bumped to 1.9 today, will continue to monitor. 5. HLD, resume statin 6. HTN, continue coreg and add irbesartan 7. LUKASZ, prior renal stenting. Consider checking at time of LHC if contrast load allows. 8. JEY, carotid u/s this admission shows less than 50% MAHIN stenosis, 50 to 69% LICA stenosis 9. History of urinary frequency, will place Graham catheter today at patient request.
[2021-09-11 11:40] LABS: POC Glucose,Bedside 254 (70-110)
[2021-09-11 13:16] LABS: Microscopic, Urine URINE MICROSCOPIC (MICROSCOPIC)
[2021-09-11 14:21] LABS: Appearance,Urine CLEAR (Clear); Bilirubin,Urine Negative (Negative); Blood, Urine Negative (Negative); Color,Urine STRAW (Yellow); Glucose,Urine (UA) Negative (Negative); Ketones,Urine Negative (Negative); Leukocyte Esterase,Urine TRACE (Negative); Nitrate,Urine Negative (Negative); Protein,Urine Negative (Negative); Urobilinogen,Urine 0.2 EU/dl (0.2)
--- NOTE | 2021-09-11 14:27 | PC.NURSE ---
Pt off floor for heart cath
[2021-09-11 14:43] LABS: RBC,Urine Occasional #/hpf (0-3)
--- NOTE | 2021-09-11 14:57 | PC.NURSE ---
Pt is alert and oriented x4. Lungs are clear, bowel sounds are active x4. He's been on RA but uses a cpap when he sleeps. He has brought his own cpap in. He has +3 edema to BLE. Some erythema noted to BLE. He's had a BBB on telemetry. A 14 FR coude marie was placed today for accurate output. He's had about 1500mls of pale yellow urine out thus far. Most recent finger stick was 254. has been at bedside and is supportive.
[2021-09-11 16:13] LABS: CATHL Activated Clotting Time 225 SEC (74-125)
--- NOTE | 2021-09-11 16:23 | PC.NURSE ---
Patient is in OR still at this time, 16:24.
[2021-09-11 17:07] LABS: POC Glucose,Bedside 214 (70-110)
--- NOTE | 2021-09-11 17:45 | PC.NURSE ---
pt has rested on and off since returning from [employer]. 3+ edema to ble. no soa reported. lungs cta. cath site to right groin c/d/i. tolerated diet well. no current needs.
[2021-09-11 20:43] LABS: POC Glucose,Bedside 282 (70-110)
[2021-09-12] VITALS: PULSE 80
--- NOTE | 2021-09-12 01:03 | PC.NURSE ---
PT ARRIVED TO FLOOR VIA W/C FROM ED W/STAFF @ [id number]
[2021-09-12 04:00] VITALS: BP 150/88; PULSE 79; PULSE 80; RESP 16; TEMP 36.4; O2SAT 92
[2021-09-12 05:00] VITALS: BMI 42.0
[2021-09-12 06:23] LABS: POC Glucose,Bedside 351 (70-110)
[2021-09-12 06:45] LABS: Basophils % 0.1 % (0.1-2.0); Eosinophils % 0.2 % (0.1-12.0); Hematocrit 39.7 % (42.0-52.0); Hemoglobin 12.7 g/dL (14.1-18.0); Lymphocytes # 0.5 K/mm3 (0.7-4.5); Lymphocytes % 6.9 % (10-50); Mean Corpuscular HGB Conc 31.9 g/dL (31.8-35.4); Mean Corpuscular Hemoglobin 27.9 pg (27.0-31.2); Mean Corpuscular Volume 87.5 fl (80-94); Mean Platelet Volume 8.7 fl (7.4-10.4); Monocytes # 0.1 K/mm3 (0.1-1.0); Monocytes % 1.5 % (1.7-9.3); Neutrophils # 6.8 K/mm3 (1.8-7.8); Neutrophils % 91.3 % (37.0-80.0); Platelet Count 242 K/mm3 (142-424); Red Blood Count 4.54 M/mm3 (4.60-6.20); Red Cell Distribution Width 17.8 % (11.5-17.5); White Blood Count 7.4 K/mm3 (4.8-10.8)
[2021-09-12 06:53] LABS: MANUAL DIFFERENTIAL MANUAL DIFFERENTIAL (MANUAL DIFF)
[2021-09-12 06:57] LABS: Anion Gap 17.6 mEq/L (5-15); Blood Urea Nitrogen 26 mg/dl (9-20); Calcium 9.3 mg/dl (8.4-10.2); Carbon Dioxide 26 mmol/L (22.0-30.0); Chloride 97 mmol/L (98-107); Creatinine Clearance Estimated 46 mL/min (50-200); Estimated Glomerular Filt Rate 38 ml/min (>60); GFR (African American) 46 ML/MIN (>60); Glucose 327 mg/dl (74-100); Potassium 4.6 mmoL/L (3.5-5.1); Sodium 136 mmol/L (136-145)
[2021-09-12 08:00] VITALS: BP 129/67; PULSE 88; RESP 16; TEMP 36.4; O2SAT 94
[2021-09-12 08:56] LABS: Lymphocytes % 6 % (10-50); Monocytes % 1 % (2-9); Neutrophils % 93 % (42-76); Total Cells Counted 100
[2021-09-12 08:58] LABS: Platelet Estimate Normal
--- NOTE | 2021-09-12 10:33 | PC.NURSE ---
1019-pt taken off floor at this time for radiology procedure, transported by [facility]-detailed report given at bedside
--- NOTE | 2021-09-12 11:45 | PC.NURSE ---
pt returned to room at this time per radiology
[2021-09-12 12:00] VITALS: BP 149/79; PULSE 90; RESP 16; TEMP 36.4; O2SAT 95
--- NOTE | 2021-09-12 12:06 | HMH.PNCARD ---
Subjective Date: 09/12/21 Time: 12:06 Principal diagnosis: CHF, unstable angina Interval history: 66-year-old white male in bed in no acute distress. He continues to notice improvement in his shortness of breath and edema. Cardiac catheterization yesterday revealed stable coronary disease with no need for intervention. Renal angiogram yesterday revealed occlusion of left renal artery and severe right renal artery stenosis which was treated successfully with stenting. Plans are for consideration of discharge later today. Patient's angiogram included evaluation of his left ventricular ejection fraction of 30-35% which varies significantly from his echocardiogram evaluation. We will obtain a MUGA scan today for clarification. Exam Vital signs and Labs for Last 24 Hours: Temp Pulse Resp BP Pulse Ox 97.5 F L 88 16 129/67 94 L 09/12/21 08:00 09/12/21 08:00 09/12/21 08:00 09/12/21 08:00 09/12/21 08:00 Laboratory Results - last 24 hr 09/11/21 12:50: Urine Color Straw, Urine Appearance Clear, Urine pH 7.0, Ur Specific [place] 1.010, Urine Protein Negative, Urine Glucose (UA) Negative, Urine Ketones Negative, Urine Blood Negative, Urine Nitrate Negative, Urine Bilirubin Negative, Urine Urobilinogen 0.2, Ur Leukocyte Esterase Trace, Urine RBC Occasional, Urine WBC 3-5, Ur Squamous Epith Cells None, Urine Bacteria None 09/11/21 16:42: Activated Clotting Time 225 H* 09/11/21 16:49: POC Glucose 214 H 09/11/21 20:30: POC Glucose 282 H 09/12/21 06:15: POC Glucose 351 H* 09/12/21 06:24: WBC 7.4, RBC 4.54 L, Hgb 12.7 L, Hct 39.7 L, MCV 87.5, MCH 27.9, MCHC 31.9, RDW 17.8 H, Plt Count 242, MPV 8.7, Neut % (Auto) 91.3 H, Lymph % (Auto) 6.9 L, Cooper % (Auto) 1.5 L, Eos % (Auto) 0.2, Baso % (Auto) 0.1, Neut # (Auto) 6.8, Lymph # (Auto) 0.5 L, Cooper # (Auto) 0.1, Eos # (Auto) 0.0, Baso # (Auto) 0.0, Total Counted 100, Neutrophils % (Manual) 93 H, Lymphocytes % (Manual) 6 L, Monocytes % (Manual) 1 L, Platelet Estimate Normal 09/12/21 06:24: Sodium 136, Potassium 4.6, Chloride 97 L, Carbon Dioxide 26, Anion Gap 17.6 H, BUN 26 H D, Creatinine 1.80 H, Estimated Creat Clear 46, Estimated GFR 38 L, Est GFR ( Amer) 46 L, Glucose 327 H, Calcium 9.3 I & O for Last 24 hours: Intake & Output 09/10/21 09/11/21 09/12/21 09/13/21 11:59 11:59 11:59 11:59 Intake Total 720 / 720 740 / 740 Output Total 3250 / 3250 5850 / 5850 4650 / 4650 Balance -3250 / -3250 -5130 / -5130 -3910 / -3910 Weight 316 lb 6.4 oz 315 lb 4.176 oz 310 lb 3.2 oz - *Routine Respiratory Exam Present: CTA bilaterally - *Routine Cardiovascular Exam Present: RRR - *Routine Extremities Exam Present: edema. Absent: cyanosis, clubbing Progress Note: A&P (1) Congestive heart failure Status: Acute (2) Chest pain Status: Acute (3) Obesity (BMI 30-39.9) Status: Acute (4) CAD (coronary atherosclerotic disease) Status: Chronic (5) Diabetes mellitus Status: Chronic (6) Essential hypertension Status: Chronic (7) Hyperlipidemia Status: Chronic (8) Hypothyroidism Status: Chronic (9) Chronic kidney disease Status: Acute Assessment and Plan for All Diagnoses:: 1. Congestive heart failure felt to be a combination of both systolic and diastolic dysfunction. Improved with diuretic therapy. MUGA scan to be obtained to further clarify the degree of left ventricular ejection fraction dysfunction. Continue aspirin, Plavix, Coreg, irbesartan, isosorbide and Ranexa therapy. 2. Renal artery stenosis status post right renal artery stenting. Left renal artery occluded. Continue aspirin and Plavix therapy. 3. Chronic kidney disease, stage III 4. Diabetes mellitus 5. Obesity Patient could be discharged home later today from a cardiac standpoint. Home medication recommendations Aspirin 81 mg daily Plavix 75 mg daily Carvedilol 25 mg twice daily Irbesartan 75 mg daily Isosorbide mononitrate 30 mg daily Ranexa 500 mg twice daily A
[2021-09-12 12:17] LABS: POC Glucose,Bedside 343 (70-110)
--- NOTE | 2021-09-12 12:17 | HMH.DCSUM ---
General - General Admission date:: 09/09/21 Discharge date: 09/12/21 HPI HPI: 66 yr old male presented to ed with c/o of soa and cp with walking. Patient has a history of congestive heart failure and coronary artery disease with prior coronary bypass surgery and cardiac stenting after his surgery. Pt states chest discomfort, leg edema and shortness of breath with exertion for the past 2 weeks. He states at 3 AM he was awaken with short of breath even though he was on his BiPAP. Pt was found to be in CHF and admitted for cardiac work up, echo, cardiology consult Hospital Course Hospital Course: 66 yr old male presented to ed with c/o of soa and cp with walking. Patient has a history of congestive heart failure and coronary artery disease with prior coronary bypass surgery and cardiac stenting after his surgery. Pt states chest discomfort, leg edema and shortness of breath with exertion for the past 2 weeks. He states at 3 AM he was awaken with short of breath even though he was on his BiPAP. Pt was found to be in CHF and admitted for cardiac work up, echo, cardiology consult 09/09/21 CXR: IMPRESSION: 1. Mild cardiomegaly. 2. Nonspecific bibasilar consolidation is present, consistent with atelectasis, edema, or pneumonia. 3. Bilateral pleural effusions. Electronically signed by Huang Lewis DO 09/10/21 Bilat Carotid Artery Duplex: IMPRESSION: Less than 50% right carotid stenosis. 50-69% left carotid stenosis. Bilateral patent vertebral arteries with antegrade flow. If indicated, CTA or MRA could further evaluate. Reviewed, Interpreted and Dictated by Hair Meza III, MD 09/11/21 Cardiac Cath: ANGIOGRAPHIC RESULTS The left main artery Has an ostial 30% stenosis The left anterior descending artery Is patent the proximal segment with proximal 50% stenoses and then occluded after a large septal dials supervisor and large first diagonal artery. The diagonal artery although was comparatively large still small caliber and has a proximal 60% concentric stenosis. The diagonal artery is less than 2 mm in diameter. The circumflex artery Is a small caliber vessel proximally and has an ostial proximal 80% stenosis. It does not give rise to any substantive obtuse marginal arteries The right coronary artery Is nondominant and occluded at mid vessel The DELEON ventriculogram reveals Dilated ventricle inferior wall hypokinesis apical hypokinesis estimate ejection fraction 30 to 35% The left ventricular end-diastolic pressure 20 mmHg GUZMAN is patent to an LAD Saphenous vein graft is patent to the dominant circumflex artery Saphenous vein graft to right coronary is ostially occluded Left renal artery singular has a stent in the ostial proximal segment which is ostially occluded Right renal artery singular has a stent in the ostial proximal segment which has 70 to 80% eccentric in-stent restenosis IMPRESSION Coronary disease as described above Left ventricular systolic dysfunction as described above Elevated LVEDP as described above Occluded left renal artery Severe in-stent restenosis within an ostial proximal solitary right renal artery Successful percutaneous revascularization of the ostial proximal right renal artery severe disease reduced to 0% with 1 drug-eluting stent PLAN 1. Dual antiplatelet therapy for drug-eluting stent and renal artery 2. Medical management for systolic heart failure 3. Medical management for above coronary artery disease 4. LDL less than 55 5. Avoidance of tobacco products 6. Risk factor modification Electronically signed by : Jordan Carver MD Cardiology has seen and recommends: Home medication recommendations Aspirin 81 mg daily Plavix 75 mg daily Carvedilol 25 mg twice daily Irbesartan 75 mg daily Isosorbide mononitrate 30 mg daily Ranexa 500 mg twice daily Atorvastatin 40 mg daily Lasix 40 mg twice daily Spironolactone 25 mg twice daily Follow-up in our office
[2021-09-12 12:18] VITALS: PULSE 90
--- NOTE | 2021-09-12 13:10 | HMH.PHACLD ---
Johnathan Parham has received discharge medication counseling on the following medications: ASPIRIN PLAVIX (NEW) IRBESARTAN (NEW) ROSUVASTATIN CARVEDILOL OTHER NEW PRESCRIPTIONS INCLUDE SPIRONOLACTONE AND DOSE CHANGE IN LASIX. NEW PRESCRIPTIONS WERE SENT TO [facility] [place]. PATIENT IS TO STOP AMLODIPINE AND TORSEMIDE AT THIS TIME. PATIENT VERBALIZED UNDERSTANDING AND HAD NO QUESTIONS AT THIS TIME. -GOVIND BOBBY, DARREND
--- NOTE | 2021-09-12 13:18 | PC.NURSE ---
pt voided 200ml's per urinarl at this time w/out difficulty
--- NOTE | 2021-09-13 13:22 | CARE MANAGER ---
Spoke with patient today as a post-discharge follow-up. Patient states that he is doing ok and has his medicines and follow-up appointments. no needs voiced.
== END 2021-09-12 14:08 | disposition home or self-care (01) ==
LOC: ER 19:05 → 2ND 22:09 → ICU 22:09 → 2ND 09-11 14:55
PROVIDERS: Internal Medicine; Nurse Practitioner Family; Physician Assistant; Admitting Provider Emergency Medicine; Emergency Provider Emergency Medicine; PCP Physician Assistant; Visit Provider Emergency Medicine
DX: I70.1 Atherosclerosis of renal artery (principal); T82.858A Stenosis of other vascular prosthetic devices, implants and grafts, initial encounter; I15.0 Renovascular hypertension; I77.1 Stricture of artery; E11.9 Type 2 diabetes mellitus without complications; Z79.4 Long term (current) use of insulin; Z95.1 Presence of aortocoronary bypass graft; I50.22 Chronic systolic (congestive) heart failure; N18.9 Chronic kidney disease, unspecified; Z20.822 Contact with and (suspected) exposure to COVID-19; Y83.1 Surgical operation with implant of artificial internal device as the cause of abnormal reaction of the patient, or of later complication, without mention of misadventure at the time of the procedure; R06.02 Shortness of breath; R26.89 Other abnormalities of gait and mobility; I13.0 Hypertensive heart and chronic kidney disease with heart failure and stage 1 through stage 4 chronic kidney disease, or unspecified chronic kidney disease
CPT/HCPCS: G0378; 36252; 36415; 37236; 71046; 78473; 80048; 80053; 81001; 82962; 83880; 84443; 84484; 85007; 85025; 85347; 93005; 93306; 93459; 93880; 96374; 99152; 99153; 99285; A9512; A9560; C1725; C1760; C1769; C1876; C1894; C9803; J1644; Q9967; U0003; U0005

== ENCOUNTER → 2021-09-19 08:12 | Outpatient (CLI) | payer MEDICARE, SELFPAY ==
[2021-09-19 09:15] LABS: Hematocrit 42.6 % (42.0-52.0); Hemoglobin 13.4 g/dL (14.1-18.0)
[2021-09-19 10:12] LABS: Blood Urea Nitrogen 40 mg/dl (9-20); Calcium 9.3 mg/dl (8.4-10.2); Carbon Dioxide 25 mmol/L (22.0-30.0); Chloride 98 mmol/L (98-107); Estimated Glomerular Filt Rate 29 ml/min (>60); GFR (African American) 35 ML/MIN (>60); Glucose 270 mg/dl (74-100); Sodium 134 mmol/L (136-145)
== END ==
PROVIDERS: Visit Provider Emergency Medicine
DX: I50.9 Heart failure, unspecified (principal); E86.0 Dehydration; I10 Essential (primary) hypertension; E11.9 Type 2 diabetes mellitus without complications; E66.01 Morbid (severe) obesity due to excess calories; Z68.41 Body mass index [BMI] 40.0-44.9, adult; Z79.4 Long term (current) use of insulin
CPT/HCPCS: 36415; 80048; 82565; 84520; 85014; 85018

== ENCOUNTER → 2021-09-26 10:35 | Outpatient (CLI) | payer MEDICARE, SELFPAY ==
[2021-09-26 12:23] LABS: Chloride 106 mmol/L (98-107)
[2021-09-26 12:24] LABS: Potassium 5.3 mmoL/L (3.5-5.1); Sodium 139 mmol/L (136-145)
[2021-09-26 12:26] LABS: Blood Urea Nitrogen 32 mg/dl (9-20); Estimated Glomerular Filt Rate 32 ml/min (>60); GFR (African American) 39 ML/MIN (>60)
[2021-09-26 12:27] LABS: Anion Gap 12.3 mEq/L (5-15); Calcium 8.8 mg/dl (8.4-10.2); Carbon Dioxide 26 mmol/L (22.0-30.0); Glucose 92 mg/dl (74-100)
== END ==
PROVIDERS: Visit Provider Physician Assistant
DX: E11.9 Type 2 diabetes mellitus without complications (principal); E66.01 Morbid (severe) obesity due to excess calories; E86.0 Dehydration; I10 Essential (primary) hypertension; I50.9 Heart failure, unspecified; Z79.4 Long term (current) use of insulin; Z68.41 Body mass index [BMI] 40.0-44.9, adult
CPT/HCPCS: 36415; 80048

== ENCOUNTER → 2021-10-10 10:31 | Outpatient (CLI) | payer MEDICARE, SELFPAY ==
[2021-10-10 11:37] LABS: Blood Urea Nitrogen 19 mg/dl (9-20); Calcium 9.1 mg/dl (8.4-10.2); Carbon Dioxide 28 mmol/L (22.0-30.0); Chloride 106 mmol/L (98-107); Estimated Glomerular Filt Rate 44 ml/min (>60); GFR (African American) 53 ML/MIN (>60); Glucose 149 mg/dl (74-100); Sodium 140 mmol/L (136-145)
== END ==
PROVIDERS: PCP Physician Assistant; Visit Provider Physician Assistant
DX: E87.5 Hyperkalemia (principal)
CPT/HCPCS: 36415; 80048

== ENCOUNTER 2021-10-31 10:51 | Emergency (ER) | payer MEDICARE, SELFPAY ==
[2021-10-31 11:33] VITALS: BP 147/61; PULSE 78; RESP 20; TEMP 37.2; O2SAT 97; BMI 40.5
--- NOTE | 2021-10-31 11:35 | HMH.EDUTC ---
[facility] [place] Disposition Clinical Impression: Sinusitis Qualifiers: Sinusitis location: unspecified location Chronicity: acute Recurrence: non-recurrent Qualified Code(s): J01.90 - Acute sinusitis, unspecified Pharyngitis Qualifiers: Pharyngitis/tonsillitis etiology: unspecified etiology Qualified Code(s): J02.9 - Acute pharyngitis, unspecified Disposition: Home, Self-Care Condition on Discharge: Good Instructions: Sinusitis, DI for Pharyngitis/Tonsillopharyngitis -- Adult, DI for Sinusitis Additional Instructions: Drink plenty of fluids. Take tylenol or ibuprofen for pain or fever. Take the medications as directed. Follow up with your regular doctor. GO TO THE ER FOR ANY WORSENING SYMPTOMS Don't start the oral steroids until tomorrow, since you had the shot here today. Prescriptions: Benzonatate [Benzonatate 100mg cap] 100 mg PO TIDP PRN #30 cap PRN Reason: Cough Transmission Status: Received by [facility] methylPREDNISolone [Medrol] 4 mg PO DIRECTED 6 Days #21 packet Transmission Status: Received by [facility] guaiFENesin [Mucinex 600mg tablet] 1 - 2 tab PO BIDP PRN #30 tab PRN Reason: Congestion Transmission Status: Received by [facility] Azithromycin [Z-Ziyad 250mg Tab*] 250 mg PO UD DOSE PK #6 tab Transmission Status: Received by [facility] Referrals: Elaina Carvalho PA [Primary Care Provider] - Time of Disposition: 12:37 Medical Decision Making - Medical Records Medical records reviewed: No: I reviewed the patient's medical records. - Harman Inquiry Pt receiving controlled substance: No Vital Signs: 10/31/21 11:33 10/31/21 12:38 Temperature 99.0 F 99.0 F Temperature Source Oral Pulse Rate 78 Pulse Rate [Left] 78 Respiratory Rate 20 20 Blood Pressure 147/61 H Blood Pressure [Right Arm] 147/61 H Blood Pressure Mean [Right Arm] 89 02 Sat by Pulse Oximetry 97 - Lab Data Lab Results 10/31/21 11:33: Group A Strep Rapid Negative Orders (Tests/Meds): ED MEDICATIONS Discontinued Medications Generic Name Dose Route Start Last Admin Trade Name Freq PRN Reason Stop Dose Admin Ceftriaxone Sodium 1 gm 10/31/21 12:14 10/31/21 12:33 Ceftriaxone 1gm Vial IM 10/31/21 12:15 1 gm ONCE ONE Administration Lidocaine HCl 0 ml 10/31/21 12:14 10/31/21 12:37 Lidocaine 1% 5ml Pf Vial IM 10/31/21 12:15 2 ml ONCE ONE Administration Methylprednisolone Sodium Succinate 125 mg 10/31/21 12:14 10/31/21 12:32 Methylprednisolone Sod Succ 125mg Vial IM 10/31/21 12:15 125 mg ONCE ONE Administration [facility] [place] HPI - General Stated complaint: ear pain,sore throat Time Seen by Provider: 10/31/21 11:35 - History of Present Illness Provider Complaint: He states that for the past 3 days he has had sore throat, sinus congestion, and a cough. He denies any fever, chills or body aches. - Related Data Home Medications Medication Instructions Recorded Confirmed Levothyroxine Sodium 75 mcg PO DAILY 06/19/19 10/31/21 [Levothyroxine 75mcg (0.075mg) Tab] hydralazine 100 mg tablet 100 mg PO BID 01/11/21 10/31/21 insulin human U-100 NPH-regulr 72 unit SQ BID ml 01/11/21 10/31/21 70-30 mix 100 unit/mL subcutaneous susp omeprazole 40 mg capsule,delayed 40 mg PO DAILY cap 01/11/21 10/31/21 release tamsulosin 0.4 mg capsule 0.4 mg PO DAILY 01/11/21 10/31/21 Calcium Carb/Magnesium Oxid/D3 1 each PO TID 06/02/21 10/31/21 [Calcium Magnesium + D Tablet] Aspirin [Aspirin 81mg EC Tab] 81 mg PO DAILY 06/04/21 10/31/21 Isosorbide Mononitrate [Isosorbide 90 mg PO DAILY 06/04/21 10/31/21 Mononitrate ER] Rosuvastatin Calcium [Crestor 40mg 40 mg PO HS 06/04/21 10/31/21 Tablets] cephALEXin [cephALEXin 250mg 250 mg PO DAILY 06/04/21 10/31/21 capsule] carvedilol 25 mg tablet 25 mg PO BID tab 10/03/21 10/31/21 furosemide 40 mg tablet 40 mg PO BID tab 10/03/21 10/31/21 gabapentin 300 mg
[2021-10-31 12:03] LABS: Strep Scrn Group A (Rapid) Negative (Negative)
[2021-10-31 12:38] VITALS: BP 147/61; PULSE 78; RESP 20; TEMP 37.2
== END 2021-10-31 12:43 | disposition home or self-care (01) ==
PROVIDERS: Emergency Provider Nurse Practitioner Family; PCP Physician Assistant
DX: J01.90 Acute sinusitis, unspecified (principal); J02.9 Acute pharyngitis, unspecified; I11.0 Hypertensive heart disease with heart failure; I50.9 Heart failure, unspecified; I65.29 Occlusion and stenosis of unspecified carotid artery; I25.10 Atherosclerotic heart disease of native coronary artery without angina pectoris; I70.1 Atherosclerosis of renal artery; E78.5 Hyperlipidemia, unspecified; E11.40 Type 2 diabetes mellitus with diabetic neuropathy, unspecified; N28.9 Disorder of kidney and ureter, unspecified; M54.30 Sciatica, unspecified side; M19.90 Unspecified osteoarthritis, unspecified site; D64.9 Anemia, unspecified; K76.9 Liver disease, unspecified; Z79.02 Long term (current) use of antithrombotics/antiplatelets; Z79.4 Long term (current) use of insulin; Z79.51 Long term (current) use of inhaled steroids; Z79.82 Long term (current) use of aspirin; Z79.899 Other long term (current) drug therapy; Z86.14 Personal history of Methicillin resistant Staphylococcus aureus infection; Z91.041 Radiographic dye allergy status; Z82.49 Family history of ischemic heart disease and other diseases of the circulatory system; Z83.438 Family history of other disorder of lipoprotein metabolism and other lipidemia; Z83.49 Family history of other endocrine, nutritional and metabolic diseases; Z83.3 Family history of diabetes mellitus; Z84.1 Family history of disorders of kidney and ureter; Z83.6 Family history of other diseases of the respiratory system
CPT/HCPCS: 87430; 96372; 99213; G0463; J0696

== ENCOUNTER → 2021-11-29 12:35 | Outpatient (CLI) | payer MEDICARE, SELFPAY | LOC: SL 12:36 | PROVIDERS: PCP Physician Assistant; Visit Provider Internal Medicine Pulmonary Disease | DX: R06.02 Shortness of breath (principal) | CPT/HCPCS: 94762 ==

== ENCOUNTER 2021-12-02 12:26 | Emergency (ER) | payer MEDICARE, SELFPAY ==
[2021-12-02 12:40] VITALS: BP 145/76; PULSE 78; RESP 18; TEMP 36.7; O2SAT 98; BMI 40.6
--- NOTE | 2021-12-02 13:11 | HMH.EDUTC ---
[facility] [place] Disposition Clinical Impression: Bronchitis Sinusitis Qualifiers: Sinusitis location: unspecified location Chronicity: unspecified Qualified Code(s): J32.9 - Chronic sinusitis, unspecified Disposition: Home, Self-Care Condition on Discharge: Good Instructions: Sinusitis, Acute Bronchitis, DI for Sinusitis Additional Instructions: ? Start antibiotic Be sure to complete entire prescription even if feeling better ? Monitor temp. Tylenol every 4 hours as needed and / or ibuprofen every 6 hours as needed ( As long as your primary care physician has told you that it ok to take both. For fever/aches/pains ER if no less than 101 despite Tylenol or Motrin ? Humidifier/vaporizer or hot steamy shower *Tessalon Perles will not cause drowsiness but use at bedtime to help stop cough so that you may get some rest. Follow up IMMEDIATELY for new or worsening of symptoms OR no noticeable improvement over the next 48-72 hours. 911 immediately for any life threatening symptoms such as chest pain or difficulty breathing Prescriptions: Benzonatate [Benzonatate 100mg cap] 100 mg PO Q8HP PRN #15 cap PRN Reason: Cough Transmission Status: Received by [facility] Azithromycin [Z-Ziyad 250mg Tab] 250 mg PO DIRECTED #6 tab Transmission Status: Received by [facility] Referrals: Elaina Carvalho PA [Primary Care Provider] - As needed Time of Disposition: 13:53 Medical Decision Making - Harman Inquiry Pt receiving controlled substance: No Harman was queried for this patient: No Vital Signs: 12/02/21 12:40 12/02/21 13:44 Temperature 98.1 F 98.1 F Temperature Source Oral Pulse Rate 78 Pulse Rate [Right Brachial] 78 Respiratory Rate 18 18 Blood Pressure 145/76 H Blood Pressure [Right Arm] 145/76 H Blood Pressure Mean [Right Arm] 99 Blood Pressure Source [Right Arm] Automatic Cuff Blood Pressure Position [Right Arm] Sitting 02 Sat by Pulse Oximetry 98 Oxygen Delivery Method Room Air Orders (Tests/Meds): ED MEDICATIONS Discontinued Medications Generic Name Dose Route Start Last Admin Trade Name Freq PRN Reason Stop Dose Admin Ceftriaxone Sodium 1 gm 12/02/21 13:23 12/02/21 13:40 Ceftriaxone 1gm Vial IM 12/02/21 13:24 1 gm ONCE ONE Administration Lidocaine HCl 0 ml 12/02/21 13:23 12/02/21 13:40 Lidocaine 1% 5ml Pf Vial IM 12/02/21 13:24 2 ml ONCE ONE Administration Methylprednisolone Sodium Succinate 125 mg 12/02/21 13:23 12/02/21 13:40 Methylprednisolone Sod Succ 125mg Vial IM 12/02/21 13:24 125 mg ONCE ONE Administration [facility] [place] HPI - General Stated complaint: SORE THROAT,COUGH,CONGESTION Time Seen by Provider: 12/02/21 13:11 Mode of Arrival: Ambulatory Source of Information: Patient Limitations: No Limitations Description of Symptoms (Recalled from Triage Doc. by RN): PATIENT C/O COUGH, CHEST CONGESTION, HEADACHE AND RUNNY NOSE SINCE FRIDAY HEENT Symptoms (Recalled from RN notes): Yes Resp Symptoms (Recalled from RN notes): Yes Skin Symptoms (Recalled from RN notes): No MS Symptoms (Recalled from RN notes): No Functional Status (Recalled from RN notes): WNL - History of Present Illness Provider Complaint: Patient states that he has been having sinus pain and pressure, cough, chest congestion and headache since Friday and it has continued to get worse States that he gets sinus infections and has to get shots for them States that he wanted to get checked before it moved into his lungs too bad - Related Data Home Medications Medication Instructions Recorded Confirmed Levothyroxine Sodium 75 mcg PO DAILY 06/19/19 11/27/21 [Levothyroxine 75mcg (0.075mg) Tab] hydralazine 100 mg tablet 100 mg PO BID 01/11/21 11/27/21 insulin human U-100 NPH-regulr 72 unit SQ BID ml 01/11/21 11/27/21 70-30 mix 100 unit/mL subcutaneous susp tamsulosin 0.4 mg capsule 0.4 mg PO DAILY 01/11/21 11/27/21 Calcium Carb/Magnesium Oxid/D3 1 each
[2021-12-02 13:44] VITALS: BP 145/76; PULSE 78; RESP 18; TEMP 36.7; O2SAT 98
== END 2021-12-02 14:04 | disposition home or self-care (01) ==
PROVIDERS: Emergency Provider Nurse Practitioner; PCP Physician Assistant
DX: J20.9 Acute bronchitis, unspecified (principal); J32.9 Chronic sinusitis, unspecified; I25.10 Atherosclerotic heart disease of native coronary artery without angina pectoris; I10 Essential (primary) hypertension; E78.5 Hyperlipidemia, unspecified
CPT/HCPCS: 96372; 99212; G0463; J0696

== ENCOUNTER → 2021-12-19 10:43 | Outpatient (CLI) | payer MEDICARE, SELFPAY | PROVIDERS: PCP Physician Assistant; Visit Provider Surgery | DX: Z01.812 Encounter for preprocedural laboratory examination (principal); Z20.822 Contact with and (suspected) exposure to COVID-19; Z13.810 Encounter for screening for upper gastrointestinal disorder | CPT/HCPCS: C9803; U0003; U0005 ==

== ENCOUNTER 2021-12-21 08:27 | Day surgery (SDC) | payer MEDICARE, SELFPAY ==
[2021-12-18 15:03] VITALS: BMI 40.0
[2021-12-21] VITALS (7 sets, daily range): BP systolic 138–163; BP diastolic 60–92; PULSE 58–76; RESP 18; TEMP 36.1–36.4; O2SAT 96–97
--- NOTE | 2021-12-21 09:23 | HMH.ANESCL ---
[facility] [place] Anesthesia Checklist - Patient Identification Patient Identification: Arm Band - Structural Data Admitted From: Home Planned Operative Procedure/s: EGD Consent for Planned Operative Procedure(s) Verified: Yes - NPO Status Verified Time NPO: 00:00 - Airway Assessment C-Spine Mobility Assessed: Yes TMJ Mobility Assessed: Yes Dentition: Edentulous - Neurological Assessment Level of Consciousness: Awake Hx Seizures: No Numbness or tingling in extremities: No - Anesthesia Plan Anesthesia Risk discussed: Yes Anesthesia Plan: Verified ASA Class: III Anesthesia Type: MAC [facility] [place] History I have reviewed the patient's past medical history: Yes Medical History: Reports:: Congestive Heart Failure, Congenital Heart Disease, Coronary Artery Disease, Diabetes Mellitus Type 2, Hyperlipidemia, Hypertension, Palpitations, Renal Disease, Transient Ischemic Attacks (TIA) Denies:: Cancer, Diabetes Mellitus Type 1, Internal Pacemaker, MRSA *Have you ever received a pneumonia vaccine?: No *Have you received a flu vaccine this season?: No Other Medical History: Reports: Anemia, Arthritis, Cataracts, Liver Disease Anesthesia experience/problems:: None Laterality Cases: Left: Carpal Tunnel Release, Right: Arthroscopy Knee, Bilateral: Cataract Other Surgeries: Yes: Appendectomy, Cardiac Catheterization, Cardiac Surgery, Cholecystectomy, Colonoscopy, Coronary Stent, Hernia Repair, Open Heart Surgery. No: Pacemaker Amputation: No Fractures: No - *Social History Last grade of school completed: High school graduate Smoking Status: Never smoker Alcohol Intake: never Substance Use Type: denies use *Occupational Status:: other Housing: house Household Members: family *Travel in the last 8 weeks: None Family Hx:: Coronary Artery Disease, Diabetes, Heart Attack, Hyperlipidemia, Hypertension, Kidney Disease, Thyroid Disorder
[2021-12-21 09:59] LABS: POC Glucose,Bedside 352 (70-110)
[2021-12-21 10:31] LABS: POC Glucose,Bedside 330 (70-110)
--- NOTE | 2021-12-21 10:31 | SUR.PREOP ---
1025: repeat FSBS- 330, no new orders at this time
--- NOTE | 2021-12-21 10:51 | HMH.SCOPE ---
- Procedure: Date: 12/21/21 Patient Date of :: 1955 Procedure Performed:: Esophagogastroduodenoscopy with biopsies Indications:: Patient is a 66-year-old male referred by Reuben Haro and Elaina Carvalho for upper endoscopy. He has a history of unstable angina, congestive heart failure, chronic kidney disease, renal artery stenosis, hypertension, diabetes. He had undergone stents for renal artery stenosis relatively recently. He has been on dual antiplatelet therapy. He had been hospitalized September 09 with shortness of air and dyspnea on exertion. He has had a previous cholecystectomy. He believes he has had an upper abdominal hernia repair. He describes some epigastric tenderness. He states that even his shirt causes him some discomfort. He was sent for EGD. He was seen in the office and scheduled for upper endoscopy. Further questioning in the preoperative area prior to the procedure stated the patient had had some dysphagia type symptoms. He actually underwent upper endoscopy in [place] with stretching of his esophagus he states approximately 2 years ago Performing Provider:: Hair Yo MD Referring Provider:: Elaina Carvalho Sedation:: MAC sedation Procedure:: Patient was taken to endoscopy procedure room. He was positioned in lateral decubitus position. Adequate intravenous sedation was achieved with anesthesia titration of propofol. Olympus endoscope was inserted via the oropharynx. Esophagus was cannulated. There was some minor tortuosity of the esophagus consistent with esophageal dysmotility. Gastroesophageal junction was encountered at approximately 49 cm from the incisors. There was no evidence of any stricture. Stomach was cannulated and insufflated. There is some diffuse gastropathy and moderate nonerosive gastritis. He had several presumed fundic gland polyps. In the prepyloric location there was a lesion which appeared somewhat inflamed and erosive likely consistent with prolapsing prepyloric polyp. After gastric antral mucosal biopsies obtained for CLOtest for H. pylori multiple biopsies were obtained of this small lesion. Pylorus was traversed. Duodenum appeared unremarkable. Endoscope was withdrawn into the gastric lumen. Several gastric mucosal biopsies obtained for histopathologic analysis. Biopsies were obtained of the presumed fundic gland polyps. A couple biopsies were obtained at the gastroesophageal junction. Stomach was desufflated and the endoscope was withdrawn. Findings:: Gastroesophageal junction at 49 cm Findings consistent with esophageal dysmotility Moderate diffuse nonerosive gastropathy Prepyloric erosive appearing prolapsing lesion, possible prolapsing fundic gland polyp. Biopsied Presumed fundic gland polyps in mid body of the stomach Recommendations:: No etiology that would describe significant epigastric tenderness on examination. Follow-up on histopathology. If symptoms persist may need CT scan. Complications:: None immediately apparent Estimated blood obtained (mL): 1
== END 2021-12-21 11:30 | disposition home or self-care (01) ==
LOC: OUTP 08:29
PROVIDERS: PCP Physician Assistant; Visit Provider Surgery
PROC: 0DJ08ZZ Inspection of Upper Intestinal Tract, Via Natural or Artificial Opening Endoscopic (ICD-10-PCS; CPT 43235; principal; 2021-12-21 09:30)
DX: K21.9 Gastro-esophageal reflux disease without esophagitis (principal); I13.0 Hypertensive heart and chronic kidney disease with heart failure and stage 1 through stage 4 chronic kidney disease, or unspecified chronic kidney disease; I50.9 Heart failure, unspecified; E11.9 Type 2 diabetes mellitus without complications; I25.10 Atherosclerotic heart disease of native coronary artery without angina pectoris; E78.5 Hyperlipidemia, unspecified; N18.9 Chronic kidney disease, unspecified
CPT/HCPCS: 43239; 82962; 87339; 88305; 88342

== ENCOUNTER → 2022-01-03 13:58 | Outpatient (CLI) | payer MEDICARE, SELFPAY ==
[2022-01-03 15:30] LABS: Blood Urea Nitrogen 19 mg/dl (9-20); Estimated Glomerular Filt Rate 41 ml/min (>60); GFR (African American) 49 ML/MIN (>60)
== END ==
PROVIDERS: PCP Physician Assistant; Visit Provider Surgery
DX: Z01.812 Encounter for preprocedural laboratory examination (principal)
CPT/HCPCS: 36415; 82565; 84520

== ENCOUNTER → 2022-01-09 07:47 | Outpatient (CLI) | payer MEDICARE, SELFPAY ==
--- NOTE | 2022-01-09 07:47 | CT_ITS ---
FINAL REPORT CLINICAL HISTORY: lt upper quad tenderness COMPARISON: March 13, 2020 FINDINGS: CT OF THE ABDOMEN AND PELVIS WITH CONTRAST Axial CT images of the abdomen and pelvis were obtained after the administration of oral and iv contrast. Coronal reformatted images were also obtained and reviewed.This study was performed with techniques to keep radiation doses as low as reasonably achievable (ALARA). Individualized dose reduction techniques using automated exposure control or adjustment of mA and/or kV according to the patient's size were employed. Abdomen: There is mild scarring in the lung bases. The heart is normal in size. The liver has an unremarkable appearance, without evidence of mass or biliary ductal dilatation. There is a presumed clips in the gallbladder fossa. There are multiple calcifications in the gallbladder fossa that may represent multiple stones in a cystic duct remnant versus collapsed stone filled gallbladder. The spleen is mildly enlarged at 14 cm. A 26 mm left adrenal nodule previously measured 24 mm and favors an adenoma. The pancreas has an unremarkable appearance. There are bilateral renal artery stents. There are partially duplicated renal collecting systems bilaterally. The kidneys are normal, without evidence of mass or hydronephrosis. The aorta is normal in caliber. There is no free fluid or adenopathy. There is a small umbilical hernia containing fat. Pelvis: The appendix is normal. The urinary bladder is unremarkable. There is a small amount of free fluid in the right pelvis which is likely reactive. There is no evidence of mass or adenopathy. There is no evidence of bowel obstruction. IMPRESSION: Multiple calcifications in the gallbladder fossa may represent multiple stones in a cystic duct remnant versus a collapsed stone filled gallbladder. These findings are stable. Left adrenal nodule favoring an adenoma. Small amount of free fluid in the right pelvis, likely reactive. Reviewed, Interpreted and Dictated by Hair Meza III, MD Transcribed by Dayne Anthony Authenticated and [facility]
== END ==
LOC: RAD 07:47
PROVIDERS: PCP Physician Assistant; Visit Provider Surgery
DX: R10.12 Left upper quadrant pain (principal)
CPT/HCPCS: 74177; Q9967

== ENCOUNTER 2022-01-24 13:25 | Emergency (ER) | payer MEDICARE, SELFPAY ==
[2022-01-24 13:26] VITALS: BP 150/65; PULSE 73; RESP 16; TEMP 36.8; O2SAT 98; BMI 40.0
--- NOTE | 2022-01-24 13:48 | XR_ITS ---
FINAL REPORT CLINICAL HISTORY: UPPER ABD PAIN COMPARISON: 09/09/2021 FINDINGS: A single portable view of the chest was obtained. There are postoperative changes from median sternotomy. The heart size and pulmonary vascularity are within normal limits. The mediastinum is within normal limits. No acute pulmonary abnormality is identified. The bony thorax is intact. IMPRESSION: No active cardiopulmonary disease. Reviewed, Interpreted and Dictated by Hair Meza III, MD Transcribed by Lisa Bassett Authenticated and [facility]
[2022-01-24 14:48] LABS: Basophils % 0.8 % (0.1-2.0); Eosinophils # 0.1 K/mm3 (0.0-0.4); Eosinophils % 2.1 % (0.1-12.0); Hemoglobin 12.7 g/dL (14.1-18.0); Lymphocytes # 1.2 K/mm3 (0.7-4.5); Lymphocytes % 22.1 % (10-50); Mean Corpuscular HGB Conc 33.5 g/dL (31.8-35.4); Mean Corpuscular Hemoglobin 29.7 pg (27.0-31.2); Mean Corpuscular Volume 88.7 fl (80-94); Mean Platelet Volume 8.2 fl (7.4-10.4); Monocytes # 0.3 K/mm3 (0.1-1.0); Monocytes % 5.9 % (1.7-9.3); Neutrophils # 3.8 K/mm3 (1.8-7.8); Neutrophils % 69.1 % (37.0-80.0); Platelet Count 202 K/mm3 (142-424); Red Blood Count 4.28 M/mm3 (4.60-6.20); Red Cell Distribution Width 16.7 % (11.5-17.5); White Blood Count 5.6 K/mm3 (4.8-10.8)
[2022-01-24 14:49] LABS: Microscopic, Urine URINE MICROSCOPIC (MICROSCOPIC)
[2022-01-24 14:50] LABS: Appearance,Urine CLEAR (Clear); Bilirubin,Urine Negative (Negative); Blood, Urine TRACE-I (Negative); Color,Urine YELLOW (Yellow); Glucose,Urine (UA) 3+ (Negative); Ketones,Urine Negative (Negative); Leukocyte Esterase,Urine 2+ (Negative); Nitrate,Urine POSITIVE (Negative); Protein,Urine Negative (Negative); Urobilinogen,Urine 0.2 EU/dl (0.2)
[2022-01-24 14:53] LABS: Alanine Aminotransferase 21 U/L (12-78); Albumin Level 3.8 g/dl (3.5-5.0); Albumin/Globulin Ratio 1.4 (1.1-1.8); Alkaline Phosphatase 102 U/L (38-126); Anion Gap 11.4 mEq/L (5-15); Aspartate Amino Transferase 24 U/L (17-59); Bilirubin,Total 1.1 mg/dl (0.2-1.3); Blood Urea Nitrogen 22 mg/dl (9-20); Calcium 9.3 mg/dl (8.4-10.2); Carbon Dioxide 28 mmol/L (22.0-30.0); Chloride 98 mmol/L (98-107); Creatinine Clearance Estimated 83 mL/min (50-200); Estimated Glomerular Filt Rate 41 ml/min (>60); GFR (African American) 49 ML/MIN (>60); Globulin 2.8 g/dL (1.3-3.2); Lipase 220 U/L (23-300); Potassium 5.4 mmoL/L (3.5-5.1); Sodium 132 mmol/L (136-145); Total Protein,Serum 6.6 g/dl (6.3-8.2)
[2022-01-24 14:55] LABS: Glucose 449 mg/dl (74-100)
--- NOTE | 2022-01-24 15:07 | PC.NURSE ---
rounded on pt at this time. updated on POC. pt voiced no needs at this time. call light in reach
[2022-01-24 15:10] LABS: Troponin I < 0.01 ng/ml (0.00-0.034)
--- NOTE | 2022-01-24 15:10 | PC.WOUNDNOTE ---
hooked up pt back up to BP cuff and cycled pressure
[2022-01-24 15:20] LABS: Bacteria,Urine 3+ /lpf
[2022-01-24 15:24] VITALS: BP 140/70; PULSE 73; RESP 18; O2SAT 97
--- NOTE | 2022-01-24 15:30 | HMH.EDABDPAI ---
ED Disposition Clinical Impression: Chronic GERD, Hyperglycemia Diabetes mellitus Qualifiers: Diabetes mellitus type: type 1 Diabetes mellitus complication status: with other specified complication Qualified Code(s): E10.69 - Type 1 diabetes mellitus with other specified complication UTI (urinary tract infection) Qualifiers: Urinary tract infection type: acute cystitis Hematuria presence: without hematuria Qualified Code(s): N30.00 - Acute cystitis without hematuria Disposition: Home, Self-Care Condition on Discharge: Good Instructions: DI for Urinary Tract Infection (UTI) Prescriptions: Hydrocod/Acet 5/325 mg [[place] 5/325mg tablet] 1 tab PO Q6HP PRN #7 tab PRN Reason: Moderate Pain Transmission Status: Sent to [id number] cephALEXin [Cephalexin 500mg Tab] 500 mg PO BID #14 tab Transmission Status: Pending to [id number] Referrals: Elaina Carvalho PA [Primary Care Provider] - - Critical Care Critical Care Time: No Attestation: On 01/24/22, the high probability of a clinically significant, sudden or life threatening deterioration of the following system(s) required my full and direct attention, intervention and personal management. The time I documented below is in addition to time spent performing reported procedures but includes the following listed in this critical care notation. Medical Decision Making - Medical Records Medical records reviewed: Yes: I reviewed the patient's medical records. - Harman Inquiry Pt receiving controlled substance: Yes Harman was queried for this patient: Yes Reference #:: [id number] Risks and benefits of using a controlled substance: were discussed with pt by me Vital Signs: 01/24/22 13:26 01/24/22 15:24 01/24/22 15:31 Temperature 98.3 F Temperature Source Oral Pulse Rate 73 77 Pulse Rate [Radial] 73 Respiratory Rate 16 18 18 Blood Pressure 140/70 135/73 Blood Pressure [Right Arm] 150/65 H Blood Pressure Mean 94 Blood Pressure Mean [Right Arm] 93 Blood Pressure Position [Right Arm] Sitting 02 Sat by Pulse Oximetry 98 97 95 Oxygen Delivery Method Room Air Room Air 01/24/22 16:11 Temperature Temperature Source Pulse Rate 58 L Pulse Rate [Radial] Respiratory Rate 18 Blood Pressure 136/68 Blood Pressure [Right Arm] Blood Pressure Mean 101 Blood Pressure Mean [Right Arm] Blood Pressure Position [Right Arm] 02 Sat by Pulse Oximetry 98 Oxygen Delivery Method - Lab Data Lab Results 01/24/22 14:30: WBC 5.6, RBC 4.28 L, Hgb 12.7 L, Hct 38.0 L, MCV 88.7, MCH 29.7, MCHC 33.5, RDW 16.7, Plt Count 202, MPV 8.2, Neut % (Auto) 69.1, Lymph % (Auto) 22.1, [place] % (Auto) 5.9, Eos % (Auto) 2.1, Baso % (Auto) 0.8, Neut # (Auto) 3.8, Lymph # (Auto) 1.2, [place] # (Auto) 0.3, Eos # (Auto) 0.1, Baso # (Auto) 0.0 01/24/22 14:30: Sodium 132 L, Potassium 5.4 H, Chloride 98, Carbon Dioxide 28, Anion Gap 11.4, BUN 22 H, Creatinine 1.70 H, Estimated Creat Clear 83, Estimated GFR 41 L, Est GFR ( Amer) 49 L, Glucose 449 H*, Calcium 9.3, Total Bilirubin 1.1, AST 24, ALT 21, Alkaline Phosphatase 102, Troponin I < 0.01, Total Protein 6.6, Albumin 3.8, Globulin 2.8, Albumin/Globulin Ratio 1.4, Lipase 220 01/24/22 14:30: Urine Color Yellow, Urine Appearance Clear, Urine pH 6.0, Ur Specific [place] 1.010, Urine Protein Negative, Urine Glucose (UA) 3+, Urine Ketones Negative, Urine Blood Trace-i, Urine Nitrate Positive, Urine Bilirubin Negative, Urine Urobilinogen 0.2, Ur Leukocyte Esterase 2+ A, Urine RBC 5-10, Urine WBC 10-20, Ur Squamous Epith Cells None, Urine Bacteria 3+ 01/24/22 16:06: POC Glucose 324 H* Result diagrams: 01/24/22 14:30 01/24/22 14:30 Orders (Tests/Meds): ED MEDICATIONS Generic Name Dose Route Start Last Admin Trade Name Freq PRN Reason Stop Dose Admin Ceftriaxone Sodium 1 gm/ 50 mls @ 100 mls/hr 01/24/22 15:30 01/24/22 15:38 Sodium Chloride IV 02/07/22 15:29 100 mls/hr Q24H MAIA Administration
[2022-01-24 15:31] VITALS: BP 135/73; PULSE 77; RESP 18; O2SAT 95
--- NOTE | 2022-01-24 15:35 | CT_ITS ---
FINAL REPORT CLINICAL HISTORY: lt sided abd pain COMPARISON: 01/09/2022 FINDINGS: Axial CT images of the abdomen and pelvis were obtained without intravenous contrast. Coronal reformatted images were also obtained.This study was performed with techniques to keep radiation doses as low as reasonably achievable (ALARA). Individualized dose reduction techniques using automated exposure control or adjustment of mA and/or kV according to the patient's size were employed. Abdomen: There is mild bibasilar atelectasis. There is no evidence of renal stone or hydronephrosis. A surgical clip is again seen in the gallbladder fossa with multiple calcifications medial to it. This may represent stones in a cystic duct remnant or other soft tissue calcification. The liver, spleen and pancreas have an unremarkable, unenhanced appearance. There is a stable left adrenal nodule consistent with an adenoma. No inflammatory process is identified. There are bilateral renal artery stents present. There is right renal scarring. There are moderate vascular calcifications. Pelvis: The appendix is normal. Images of the pelvis reveal no evidence of ureteral dilation or ureteral stone. There is a small amount of air in the urinary bladder which may be iatrogenic. There are small inguinal hernias containing fat. No mass or abnormal fluid collection is identified. IMPRESSION: Calcifications in the gallbladder fossa may represent stones in a cystic duct remnant or soft tissue calcifications, stable. Stable presumed left adrenal adenoma. No new mass or inflammatory process. Reviewed, Interpreted and Dictated by Hair Meza III, MD Transcribed by Lisa Bassett Authenticated and [facility]
--- NOTE | 2022-01-24 15:35 | PC.NURSE ---
asked ER if pt needed blood cultures, GUSTAVO HEADLEY states not a this time.
--- NOTE | 2022-01-24 15:41 | PC.NURSE ---
IV antibiotics started at this time, pt educated on why antibiotics were for, pt verbalized understanding. Pt sitting up on side of the bed, call light within reach.
--- NOTE | 2022-01-24 15:55 | PC.NURSE ---
PT OFFERED WARM BLANKET, PT DECLINED
--- NOTE | 2022-01-24 16:02 | PC.NURSE ---
PT RETURNED FROM XRAY
--- NOTE | 2022-01-24 16:07 | PC.NURSE ---
ACCUCHECK 324
[2022-01-24 16:11] VITALS: BP 136/68; PULSE 58; RESP 18; O2SAT 98
--- NOTE | 2022-01-24 16:11 | PC.NURSE ---
Recycled BP and O2 SAT
[2022-01-24 16:13] LABS: POC Glucose,Bedside 324 (70-110)
[2022-01-24 16:31] VITALS: BP 135/47; PULSE 67; O2SAT 95
--- NOTE | 2022-01-24 16:43 | PC.NURSE ---
ER at speaking with pt about POC
[2022-01-24 17:17] VITALS: BP 132/74; PULSE 78; RESP 16; TEMP 36.6; O2SAT 98
== END 2022-01-24 17:19 | disposition home or self-care (01) ==
PROVIDERS: Emergency Provider Emergency Medicine; PCP Physician Assistant
DX: E11.65 Type 2 diabetes mellitus with hyperglycemia (principal); Z79.4 Long term (current) use of insulin; N30.00 Acute cystitis without hematuria; K21.9 Gastro-esophageal reflux disease without esophagitis
CPT/HCPCS: 71045; 74176; 80053; 81001; 82962; 83690; 84484; 85025; 87086; 87088; 87186; 96361; 96374; 96375; 99284; J0696; J2405

== ENCOUNTER 2022-05-15 15:33 | Emergency (ER) | payer MEDICARE, SELFPAY ==
[2022-05-15 15:34] VITALS: BP 152/73; PULSE 81; RESP 18; TEMP 36.6; O2SAT 97; BMI 40.6
--- NOTE | 2022-05-15 15:40 | ECG_ITS ---
APPROVED REPORT Exam: Resting ECG HR:80 bpm ECG Measurements Heart Rate 80 AXES ME 179 P -1 QRSd 158 QRS 135 QT 421 T 3 QTc 457 Conclusion SINUS RHYTHM RIGHT AXIS DEVIATION [QRS AXIS > 100] RIGHT BUNDLE BRANCH BLOCK [120+ ms QRS DURATION, UPRIGHT V1, 40+ ms S IN I/aVL/V4/V5/V6] ABNORMAL ECG UNCONFIRMED REPORT Electronically signed by : Estrada aGr MD 05/16/2022 19:50:24
--- NOTE | 2022-05-15 16:00 | XR_ITS ---
PROCEDURE INFORMATION: Exam: XR Chest Exam date and time: 05/15/2022 4:37 PM Age: 66 years old Clinical indication: Shortness of breath; Additional info: KATTY Yip TECHNIQUE: Imaging protocol: Radiologic exam of the chest. Views: 1 view. COMPARISON: CR XR CHEST PORTABLE 01/24/2022 2:02 PM FINDINGS: Lungs: No evidence of pneumonia or interstitial edema. Platelike atelectasis in left lower lobe Pleural spaces: Unremarkable. No pleural effusion. No pneumothorax. Heart/Mediastinum: Contours of the cardiac and mediastinal silhouette are unchanged. Bones/joints: Sternotomy wires and mediastinal surgical clips are present, consistent with previous coronary arterial bypass grafting. IMPRESSION: No evidence of pneumonia or interstitial edema.
[2022-05-15 16:13] LABS: Chloride 100 mmol/L (98-107); Sodium 135 mmol/L (136-145)
[2022-05-15 16:14] LABS: Potassium 4.7 mmoL/L (3.5-5.1)
--- NOTE | 2022-05-15 16:14 | HMH.EDGENADL ---
Discharge Plan Disposition Patient Disposition: Home, Self-Care Condition: Good Prescriptions Prescriptions: New levofloxacin 750 mg tablet 750 mg PO DAILY 7 Days Qty: 7 0RF No Action omeprazole 40 mg capsule,delayed release(DR/EC) 40 mg PO DAILY Qty: 90 1RF tamsulosin 0.4 mg capsule 0.4 mg PO DAILY ondansetron 4 mg tablet,disintegrating 4 mg PO Q8H PRN (Reason: nausea and vomiting) Qty: 20 0RF carvedilol 25 mg tablet 25 mg PO BID Qty: 180 3RF clopidogrel 75 mg tablet 75 mg PO DAILY Qty: 90 3RF hydralazine 100 mg tablet 100 mg PO BID Qty: 180 3RF isosorbide mononitrate 30 mg tablet extended release 24 hr 90 mg PO DAILY Qty: 270 3RF rosuvastatin 40 mg tablet 40 mg PO HS Qty: 90 3RF spironolactone 25 mg tablet 25 mg PO DIRECTED Qty: 90 3RF Rx Instructions: MON/WED/FRI only furosemide 40 mg tablet 40 mg PO DAILY levothyroxine 75 MCG tablet 75 mcg PO DAILY insulin NPH and regular human 100 unit/mL (70-30) suspension 60 unit SQ .COMPLEX Rx Instructions: 60 units subcutaneously tid; calcium carb-mag oxide-vit D3 1 EACH tablet 1 each PO TID aspirin 81 MG tablet,delayed release (DR/EC) 81 mg PO DAILY nystatin-triamcinolone 15 GM cream 1 applic TP BID Referrals Follow up/Referrals: Elaina Carvalho PA [Primary Care Provider] - See instructions Activity Restrictions/Add. Instructions Additional Instructions/Restrictions: You were evaluated in the emergency department today and diagnosed with sinusitis and a urinary tract infection. Please follow-up with your primary care provider over the next 48 hours. superintendent terminal your prescription for antibiotics at the pharmacy and take them as prescribed. Return to the emergency department for any new or worsening symptoms. Clinical Impressions Clinical Impression: Chronic UTI Sinusitis Qualifiers: Sinusitis location: unspecified location Chronicity: acute Recurrence: not specified as recurrent Qualified Code(s): J01.90 - Acute sinusitis, unspecified Instructions Patient Instructions: DI for Sinusitis, DI for Urinary Tract Infection (UTI) Discharge ED Provider: Elle Durán General Adult HPI General Chief complaint: Shortness of Breath/Dyspnea Stated complaint: Cough, Sneezing, burning in nose, possible UTI Time Seen by Provider: 05/15/22 15:51 History of Present Illness HPI narrative: This patient is a 66-year-old male with a history of CAD, DANY, hypertension, hyperlipidemia, and CHF presented to the emergency department for evaluation of congestion and sinus pain. He states that this has been going on for approximately 10 days now. He states that he was starting to feel better after having upper respiratory symptoms last week, however the sinus pain and congestion has gotten much worse. Nothing at home seems to make it better. He states that it is worse at night. He states that he sneezed and coughed all night last night. No recent fevers, chills, abdominal pain, nausea, vomiting, or changes in bowel movements. He does admit to chronic dysuria, which he states is currently bothering him at this time. He states that he has a history of chronic recurrent urinary tract infections. On review of systems he also admits to substernal chest pressure that is nonradiating. Related Data Home Medications Medication Instructions Recorded Confirmed levothyroxine 75 mcg tablet 75 mcg PO DAILY hypothyroidism 06/19/19 05/13/22 tamsulosin 0.4 mg capsule 0.4 mg PO DAILY prostate 01/11/21 05/13/22 calcium carb-magnesium oxide-vit 1 each PO TID Supplement 06/02/21 05/13/22 D3 400 mg-167 mg-133 unit tablet aspirin 81 mg tablet,delayed 81 mg PO DAILY heart health 06/04/21 05/13/22 release nystatin-triamcinolone 100,000 1 applic topical BID yeast 12/18/21 05/13/22 unit/g-0.1 % topical cream infection furosemide 40 mg tablet 40 mg PO DAILY Edema 05/13/22 insuli
[2022-05-15 16:16] LABS: Alanine Aminotransferase 24 U/L (12-78); Albumin Level 3.9 g/dl (3.5-5.0); Alkaline Phosphatase 93 U/L (38-126); Anion Gap 14.7 mEq/L (5-15); Aspartate Amino Transferase 39 U/L (17-59); Bilirubin,Direct 0.3 mg/dl (0.0-0.4); Bilirubin,Indirect 0.5 mg/dL (0.0-0.9); Bilirubin,Total 0.8 mg/dl (0.2-1.3); Bilirubin,Unconjugated 0.5 mg/dL (0.0-1.1); Blood Urea Nitrogen 25 mg/dl (9-20); Carbon Dioxide 25 mmol/L (22.0-30.0); Estimated Glomerular Filt Rate 38 ml/min (>60); GFR (African American) 46 ML/MIN (>60)
[2022-05-15 16:17] LABS: Glucose 256 mg/dl (74-100); Total Protein,Serum 6.8 g/dl (6.3-8.2)
[2022-05-15 16:20] LABS: Basophils % 0.7 % (0.1-2.0); Creatinine Clearance Estimated 80 mL/min (50-200); Eosinophils # 0.2 K/mm3 (0.0-0.4); Eosinophils % 2.5 % (0.1-12.0); Hematocrit 40.1 % (42.0-52.0); Hemoglobin 12.9 g/dL (14.1-18.0); Lymphocytes # 1.7 K/mm3 (0.7-4.5); Lymphocytes % 27.2 % (10-50); Mean Corpuscular HGB Conc 32.2 g/dL (31.8-35.4); Mean Corpuscular Hemoglobin 28.3 pg (27.0-31.2); Mean Corpuscular Volume 88.1 fl (80-94); Mean Platelet Volume 8.8 fl (7.4-10.4); Monocytes # 0.3 K/mm3 (0.1-1.0); Neutrophils # 4.1 K/mm3 (1.8-7.8); Neutrophils % 64.6 % (37.0-80.0); Platelet Count 203 K/mm3 (142-424); Red Blood Count 4.55 M/mm3 (4.60-6.20); Red Cell Distribution Width 17.1 % (11.5-17.5); White Blood Count 6.4 K/mm3 (4.8-10.8)
[2022-05-15 16:26] LABS: NT Pro Brain Natriuretic Pep. 123 pg/mL (0-125)
[2022-05-15 16:31] VITALS: BP 125/63; PULSE 82; RESP 19; O2SAT 98
[2022-05-15 16:31] LABS: Troponin I < 0.01 ng/ml (0.00-0.034)
[2022-05-15 17:02] VITALS: BP 175/81; PULSE 80; RESP 15; O2SAT 98
[2022-05-15 17:31] VITALS: BP 128/72; PULSE 84; RESP 17; O2SAT 95
[2022-05-15 18:01] VITALS: BP 129/67; PULSE 83; RESP 18; O2SAT 97
[2022-05-15 19:44] LABS: Coronavirus 19, PCR Not Detected (NotDetected); Influenza A, PCR Not Detected (NotDetected); Influenza B, PCR Not Detected (NotDetected)
--- NOTE | 2022-05-15 20:01 | PC.NURSE ---
shift change report given to jyothirn
[2022-05-15 20:02] LABS: Microscopic, Urine URINE MICROSCOPIC (MICROSCOPIC)
[2022-05-15 20:14] LABS: Appearance,Urine CLEAR (Clear); Bilirubin,Urine Negative (Negative); Blood, Urine Negative (Negative); Color,Urine YELLOW (Yellow); Glucose,Urine (UA) Negative (Negative); Ketones,Urine Negative (Negative); Leukocyte Esterase,Urine 3+ (Negative); Nitrate,Urine POSITIVE (Negative); PH,Urine 5.5 (5.0-8.5); Protein,Urine Negative (Negative); Specific Gravity, Urine 1.015 (1.005-1.030); Urobilinogen,Urine 0.2 EU/dl (0.2)
[2022-05-15 20:21] LABS: Troponin I < 0.01 ng/ml (0.00-0.034)
[2022-05-15 20:32] VITALS: BP 151/76; PULSE 83; RESP 18; TEMP 36.7; O2SAT 95
[2022-05-15 20:53] LABS: Bacteria,Urine 4+ /lpf; WBC,Urine 20-50 #/hpf (0-3)
== END 2022-05-15 20:47 | disposition home or self-care (01) ==
PROVIDERS: Emergency Provider Emergency Medicine; PCP Physician Assistant
DX: N39.0 Urinary tract infection, site not specified; J01.90 Acute sinusitis, unspecified; Z79.899 Other long term (current) drug therapy; Z79.4 Long term (current) use of insulin; I65.29 Occlusion and stenosis of unspecified carotid artery; G47.33 Obstructive sleep apnea (adult) (pediatric); E11.9 Type 2 diabetes mellitus without complications; E03.9 Hypothyroidism, unspecified; I25.10 Atherosclerotic heart disease of native coronary artery without angina pectoris; I50.9 Heart failure, unspecified; I70.1 Atherosclerosis of renal artery; D64.9 Anemia, unspecified; N28.9 Disorder of kidney and ureter, unspecified
CPT/HCPCS: 71045; 80048; 80076; 81001; 83880; 84484; 85025; 87086; 87088; 87186; 93005; 99284; C9803; U0003; U0005

== ENCOUNTER → 2022-05-16 12:01 | Outpatient (CLI) | payer MEDICARE, SELFPAY ==
[2022-05-16 13:11] LABS: Blood Urea Nitrogen 23 mg/dl (9-20); Calcium 9.5 mg/dl (8.4-10.2); Carbon Dioxide 29 mmol/L (22.0-30.0); Chloride 94 mmol/L (98-107); Estimated Glomerular Filt Rate 34 ml/min (>60); GFR (African American) 41 ML/MIN (>60); Glucose 349 mg/dl (74-100); Sodium 136 mmol/L (136-145)
[2022-05-16 14:28] LABS: Basophils # 0.1 K/mm3 (0-0.2); Basophils % 0.8 % (0.1-2.0); Eosinophils # 0.2 K/mm3 (0.0-0.4); Eosinophils % 2.2 % (0.1-12.0); Hematocrit 40.7 % (42.0-52.0); Hemoglobin 12.8 g/dL (14.1-18.0); Lymphocytes # 1.7 K/mm3 (0.7-4.5); Lymphocytes % 24.5 % (10-50); Mean Corpuscular HGB Conc 31.4 g/dL (31.8-35.4); Mean Corpuscular Hemoglobin 28.5 pg (27.0-31.2); Mean Corpuscular Volume 90.7 fl (80-94); Mean Platelet Volume 9.1 fl (7.4-10.4); Monocytes # 0.4 K/mm3 (0.1-1.0); Monocytes % 5.6 % (1.7-9.3); Neutrophils # 4.7 K/mm3 (1.8-7.8); Neutrophils % 66.8 % (37.0-80.0); Platelet Count 229 K/mm3 (142-424); Red Blood Count 4.49 M/mm3 (4.60-6.20); Red Cell Distribution Width 17.1 % (11.5-17.5)
== END ==
PROVIDERS: PCP Physician Assistant; Visit Provider Nurse Practitioner
DX: I50.9 Heart failure, unspecified (principal)
CPT/HCPCS: 36415; 80048; 85025

== ENCOUNTER 2022-06-21 15:51 | Emergency (ER) | payer MEDICARE, SELFPAY ==
[2022-06-21] VITALS (9 sets, daily range): BP systolic 133–157; BP diastolic 65–80; PULSE 74–90; RESP 18–22; TEMP 36.5–36.8; O2SAT 94–99; BMI 40.6
--- NOTE | 2022-06-21 16:22 | XR_ITS ---
PROCEDURE INFORMATION: Exam: XR Chest Exam date and time: 06/21/2022 5:15 PM Age: 66 years old Clinical indication: Cough; Additional info: Cough, chest congestion TECHNIQUE: Imaging protocol: Radiologic exam of the chest. Views: 1 view. COMPARISON: CR XR CHEST PORTABLE 05/15/2022 4:37 PM FINDINGS: Lungs: Chronic streaky opacities in the left lingula. No new airspace consolidation or nodules. Pleural spaces: No pleural effusion. No pneumothorax. Heart/Mediastinum: No abnormalities. No cardiomegaly. No pulmonary vascular congestion. Bones/joints: Sternotomy wires. No fractures or bone lesions. IMPRESSION: No acute chest disease. Chronic atelectasis or scarring in the lingula.
[2022-06-21 16:36] LABS: Chloride 93 mmol/L (98-107)
[2022-06-21 16:37] LABS: Potassium 4.7 mmoL/L (3.5-5.1); Sodium 131 mmol/L (136-145)
[2022-06-21 16:39] LABS: Alanine Aminotransferase 22 U/L (12-78); Alkaline Phosphatase 100 U/L (38-126); Aspartate Amino Transferase 39 U/L (17-59); Bilirubin,Total 1.3 mg/dl (0.2-1.3); Blood Urea Nitrogen 26 mg/dl (9-20); Creatinine Clearance Estimated 68 mL/min (50-200); Estimated Glomerular Filt Rate 32 ml/min (>60); GFR (African American) 39 ML/MIN (>60)
[2022-06-21 16:40] LABS: Albumin Level 4.2 g/dl (3.5-5.0); Albumin/Globulin Ratio 1.6 (1.1-1.8); Anion Gap 12.7 mEq/L (5-15); Calcium 9.5 mg/dl (8.4-10.2); Carbon Dioxide 30 mmol/L (22.0-30.0); Globulin 2.7 g/dL (1.3-3.2); Total Protein,Serum 6.9 g/dl (6.3-8.2)
[2022-06-21 16:41] LABS: Basophils % 0.7 % (0.1-2.0); Eosinophils # 0.1 K/mm3 (0.0-0.4); Eosinophils % 1.3 % (0.1-12.0); Hematocrit 41.4 % (42.0-52.0); Hemoglobin 12.9 g/dL (14.1-18.0); Lymphocytes # 1.2 K/mm3 (0.7-4.5); Lymphocytes % 19.3 % (10-50); Mean Corpuscular HGB Conc 31.3 g/dL (31.8-35.4); Mean Corpuscular Volume 92.6 fl (80-94); Mean Platelet Volume 8.9 fl (7.4-10.4); Monocytes # 0.3 K/mm3 (0.1-1.0); Monocytes % 5.1 % (1.7-9.3); Neutrophils # 4.8 K/mm3 (1.8-7.8); Neutrophils % 73.7 % (37.0-80.0); Platelet Count 223 K/mm3 (142-424); Red Blood Count 4.47 M/mm3 (4.60-6.20); Red Cell Distribution Width 17.4 % (11.5-17.5); White Blood Count 6.5 K/mm3 (4.8-10.8)
--- NOTE | 2022-06-21 16:41 | ECG_ITS ---
APPROVED REPORT Exam: Resting ECG HR:75 bpm ECG Measurements Heart Rate 75 AXES [place] 173 P 11 QRSd 149 QRS 148 QT 435 T 0 QTc 464 Conclusion SINUS RHYTHM RIGHT AXIS DEVIATION [QRS AXIS > 100] RIGHT BUNDLE BRANCH BLOCK [120+ ms QRS DURATION, UPRIGHT V1, 40+ ms S IN I/aVL/V4/V5/V6] ABNORMAL ECG UNCONFIRMED REPORT Electronically signed by : Estrada Gar MD 06/22/2022 12:52:08
[2022-06-21 16:45] LABS: Lactic Acid 1.2 mmol/L (0.7-2.1)
--- NOTE | 2022-06-21 16:48 | HMH.EDGENADL ---
Discharge Plan Disposition Patient Disposition: Home, Self-Care Chief Complaint: Weakness Prescriptions Prescriptions: No Action omeprazole 40 mg capsule,delayed release(DR/EC) 40 mg PO DAILY Qty: 90 1RF doxazosin 4 mg tablet 4 mg PO DAILY azithromycin 500 mg tablet 500 mg PO DAILY 3 Days Qty: 3 0RF cefdinir 300 mg capsule 300 mg PO BID 10 Days Qty: 20 0RF ondansetron 4 mg tablet,disintegrating 4 mg PO Q8H PRN (Reason: nausea and vomiting) Qty: 20 0RF carvedilol 25 mg tablet 25 mg PO BID Qty: 180 3RF clopidogrel 75 mg tablet 75 mg PO DAILY Qty: 90 3RF hydralazine 100 mg tablet 100 mg PO BID Qty: 180 3RF rosuvastatin 40 mg tablet 40 mg PO HS Qty: 90 3RF spironolactone 25 mg tablet 25 mg PO DIRECTED Qty: 90 3RF Rx Instructions: MON/WED/FRI only furosemide 40 mg tablet 40 mg PO DAILY ranolazine [Ranexa] 500 mg tablet extended release 12 hr 500 mg PO BID Qty: 60 2RF levothyroxine 75 MCG tablet 75 mcg PO DAILY insulin NPH and regular human 100 unit/mL (70-30) suspension 60 unit SQ .COMPLEX Rx Instructions: 60 units subcutaneously tid; calcium carb-mag oxide-vit D3 1 EACH tablet 1 each PO TID aspirin 81 MG tablet,delayed release (DR/EC) 81 mg PO DAILY nystatin-triamcinolone 15 GM cream 1 applic TP BID Referrals Follow up/Referrals: Elaina Carvalho PA [Primary Care Provider] - See instructions Clinical Impressions Clinical Impression: Bronchitis Discharge ED Provider: Drake Boykin General Adult HPI General Chief complaint: Weakness Stated complaint: O2 low,congestion.SOB,cough Time Seen by Provider: 06/21/22 17:14 Mode of Arrival: Ambulatory Source of Information: Patient Limitations: No Limitations Description of Symptoms (Recalled from ER Triage Doc. by RN): pt reports chest congestion, dry cough and not feeling well x1 week. Pt reports has seen PCP in office, received 2 steriod shots and antibiotics, pt reports not feeling any better. 1+ edema noted in BLE, pt reports takes lasix daily. History of Present Illness HPI narrative: Patient is a 66-year-old male with past medical history of coronary artery disease status post triple-vessel bypass, DANY, recently diagnosed respiratory infection on ceftriaxone, Medrol Dosepak, azithromycin, cefdinir, day 4 of antibiotics who presents to the emergency department for evaluation of persistent symptoms. Patient denies chest pain. Just persistent cough and shortness of breath. No other acute complaints at this time. Related Data Home Medications Medication Instructions Recorded Confirmed levothyroxine 75 mcg tablet 75 mcg PO DAILY hypothyroidism 06/19/19 06/18/22 calcium carb-magnesium oxide-vit 1 each PO TID Supplement 06/02/21 06/18/22 D3 400 mg-167 mg-133 unit tablet aspirin 81 mg tablet,delayed 81 mg PO DAILY heart health 06/04/21 06/18/22 release nystatin-triamcinolone 100,000 1 applic topical BID yeast 12/18/21 06/18/22 unit/g-0.1 % topical cream infection furosemide 40 mg tablet 40 mg PO DAILY Edema 05/13/22 06/18/22 insulin human U-100 NPH-regulr 60 unit SQ .COMPLEX Diabetes 05/13/22 06/18/22 70-30 mix 100 unit/mL subcutaneous susp doxazosin 4 mg tablet 4 mg PO DAILY 06/18/22 06/18/22 Previous Rx's Medication Instructions Recorded ondansetron 4 mg disintegrating 4 mg PO Q8H PRN nausea and 09/19/21 tablet vomiting #20 tabs omeprazole 40 mg capsule,delayed 40 mg PO DAILY acid reflux #90 caps 11/14/21 release carvedilol 25 mg tablet 25 mg PO BID HEART #180 tabs 05/02/22 clopidogrel 75 mg tablet 75 mg PO DAILY thinner #90 tabs 05/02/22 hydralazine 100 mg tablet 100 mg PO BID blood pressure #180 05/02/22 tabs rosuvastatin 40 mg tablet 40 mg PO HS Cholesterol #90 tabs 05/02/22 spironolactone 25 mg tablet 25 mg PO DIRECTED Edema #90 tabs 05/02/22 ranolazine 500 mg tablet,extended 500 mg PO BID #60 tabs 05/08
[2022-06-21 17:15] LABS: Troponin I < 0.01 ng/ml (0.00-0.034)
[2022-06-21 17:16] LABS: Glucose 622 mg/dl (74-100)
--- NOTE | 2022-06-21 17:16 | PC.NURSE ---
notified ER of critical glucose
--- NOTE | 2022-06-21 17:17 | PC.NURSE ---
notified RT of neb treatment order
[2022-06-21 17:21] LABS: Coronavirus 19, PCR Not Detected (NotDetected); Influenza A, PCR Not Detected (NotDetected); Influenza B, PCR Not Detected (NotDetected)
--- NOTE | 2022-06-21 18:26 | PC.NURSE ---
LAB HERE FOR REPEAT TROP
[2022-06-21 18:59] LABS: POC Glucose,Bedside 567 (70-110)
--- NOTE | 2022-06-21 19:01 | PC.NURSE ---
BG rechecked: [id number]
--- NOTE | 2022-06-21 19:30 | PC.NURSE ---
shift change report given to jyothirn
[2022-06-21 19:44] LABS: Troponin I < 0.01 ng/ml (0.00-0.034)
== END 2022-06-21 20:39 | disposition home or self-care (01) ==
PROVIDERS: Emergency Provider Emergency Medicine; PCP Physician Assistant
DX: R06.02 Shortness of breath (principal); E87.1 Hypo-osmolality and hyponatremia; R53.1 Weakness; R73.9 Hyperglycemia, unspecified; R05.9 Cough, unspecified; Z20.822 Contact with and (suspected) exposure to COVID-19; N18.9 Chronic kidney disease, unspecified; I25.10 Atherosclerotic heart disease of native coronary artery without angina pectoris; M54.30 Sciatica, unspecified side; G47.33 Obstructive sleep apnea (adult) (pediatric); Z79.02 Long term (current) use of antithrombotics/antiplatelets; Z79.82 Long term (current) use of aspirin; Z79.899 Other long term (current) drug therapy; Z95.1 Presence of aortocoronary bypass graft; Z88.8 Allergy status to other drugs, medicaments and biological substances
CPT/HCPCS: 36415; 71045; 80053; 82962; 83605; 84484; 85025; 87040; 93005; 99284; C9803; U0003; U0005

== ENCOUNTER 2022-07-21 13:57 | Emergency (ER) | payer MEDICARE, SELFPAY ==
[2022-07-21] VITALS (9 sets, daily range): BP systolic 139–186; BP diastolic 65–84; PULSE 64–77; RESP 16–18; TEMP 36.7; O2SAT 95–98; BMI 40.6
--- NOTE | 2022-07-21 13:59 | XR_ITS ---
PROCEDURE INFORMATION: Exam: XR Chest Exam date and time: 07/21/2022 2:17 PM Age: 67 years old Clinical indication: Cough and shortness of breath; Additional info: Cough and congestion TECHNIQUE: Imaging protocol: Radiologic exam of the chest. Views: 2 views. COMPARISON: CR XR CHEST PORTABLE 06/21/2022 5:15 PM FINDINGS: Lungs: Lungs are well aerated without a focal area of consolidation. Pleural spaces: Unremarkable. No pleural effusion. No pneumothorax. Heart/Mediastinum: Unremarkable. No cardiomegaly. Bones/joints: prior sternotomy. IMPRESSION: Lungs are well aerated without a focal area of consolidation.
[2022-07-21 14:04] LABS: Coronavirus 19, PCR Not Detected (NotDetected); Influenza A, PCR Not Detected (NotDetected); Influenza B, PCR Not Detected (NotDetected)
--- NOTE | 2022-07-21 14:23 | PC.NURSE ---
checked on pt at this time, pt states no needs at this time
--- NOTE | 2022-07-21 14:24 | PC.NURSE ---
rad here to get pt
--- NOTE | 2022-07-21 14:29 | PC.NURSE ---
pt back from rad
--- NOTE | 2022-07-21 14:39 | HMH.EDGENADL ---
Discharge Plan Disposition Patient Disposition: Home, Self-Care Condition: Good Prescriptions Prescriptions: New levofloxacin 750 mg tablet 750 mg PO DAILY 5 Days Qty: 5 0RF prednisone 20 mg tablet 20 mg PO BID Qty: 10 0RF ipratropium-albuterol 0.5 mg-3 mg(2.5 mg base)/3 mL solution for nebulization 3 ml inhalation Q6H PRN (Reason: wheezing) Qty: 90 0RF No Action omeprazole 40 mg capsule,delayed release(DR/EC) 40 mg PO DAILY Qty: 90 1RF polyethylene glycol 3350 [Miralax] 17 gram/dose powder 17 g PO DAILY sucralfate [Carafate] 1 gram tablet 1 g PO QAC doxazosin 4 mg tablet 4 mg PO DAILY cefdinir 300 mg capsule 300 mg PO BID 10 Days Qty: 20 0RF ondansetron 4 mg tablet,disintegrating 4 mg PO Q8H PRN (Reason: nausea and vomiting) Qty: 20 0RF carvedilol 25 mg tablet 25 mg PO BID Qty: 180 3RF clopidogrel 75 mg tablet 75 mg PO DAILY Qty: 90 3RF hydralazine 100 mg tablet 100 mg PO BID Qty: 180 3RF rosuvastatin 40 mg tablet 40 mg PO HS Qty: 90 3RF spironolactone 25 mg tablet 25 mg PO DIRECTED Qty: 90 3RF Rx Instructions: MON/WED/FRI only furosemide 40 mg tablet 40 mg PO DAILY ranolazine [Ranexa] 500 mg tablet extended release 12 hr 500 mg PO BID Qty: 60 2RF levothyroxine 75 MCG tablet 75 mcg PO DAILY insulin NPH and regular human 100 unit/mL (70-30) suspension 60 unit SQ .COMPLEX Rx Instructions: 60 units subcutaneously tid; calcium carb-mag oxide-vit D3 1 EACH tablet 1 each PO TID aspirin 81 MG tablet,delayed release (DR/EC) 81 mg PO DAILY nystatin-triamcinolone 15 GM cream 1 applic TP BID Referrals Follow up/Referrals: Elaina Carvalho PA [Primary Care Provider] - See instructions Activity Restrictions/Add. Instructions Additional Instructions/Restrictions: Levaquin (antibiotic), prednisone, and nebulizer treatments as prescribed. Follow-up with primary care provider, call tomorrow to make appointment. Return the emergency department if severe shortness of breath. Clinical Impressions Clinical Impression: Acute bronchitis Instructions Patient Instructions: DI for Acute Bronchitis Discharge ED Provider: Villa Mcelroy General Adult HPI General Chief complaint: Upper Respiratory Infection Stated complaint: COUGH AND CONGESTION Time Seen by Provider: 07/21/22 14:32 Mode of Arrival: Ambulatory Source of Information: Patient Limitations: No Limitations Description of Symptoms (Recalled from ER Triage Doc. by RN): pt comes in with c/o productive cough and congestion. symptoms ongoing for 3-4 weeks. pt states that he has had covid before and believes that he has never really gotten over it. cough and congestion got worse friday night. History of Present Illness HPI narrative: Patient complains of 5-day history of a cough. Sneezing, chronic postnasal drip, sore throat. Denies fever. States he is unable to get sputum up out of his airways, although he feels like it is in there. States that he was here for the same thing about 4 weeks ago. States he was diagnosed with chronic bronchitis . States he got a nebulizer treatment which helped. He was treated with steroids and antibiotics and feels that he got over that illness but it came back again last Friday. He is a non-smoker, but says he lives with a smoker. He does not have asthma or COPD, but says that he has a nebulizer at home, but does not have any medication for it at this time. He does have coronary artery disease, status post coronary bypass grafting and he has congestive heart failure. Related Data Home Medications Medication Instructions Recorded Confirmed levothyroxine 75 mcg tablet 75 mcg PO DAILY hypothyroidism 06/19/19 06/26/22 calcium carb-magnesium oxide-vit 1 each PO TID Supplement 06/02/21 06/26/22 D3 400 mg-167 mg-133 unit tablet aspirin 81 mg tablet,delayed 81 mg PO DAILY
--- NOTE | 2022-07-21 14:48 | PC.NURSE ---
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 symptoms began a few minutes ago. pt states that he has had them before, they come and go. ekg being obtained
--- NOTE | 2022-07-21 14:51 | ECG_ITS ---
APPROVED REPORT Exam: Resting ECG HR:69 bpm ECG Measurements Heart Rate 69 AXES MS 206 P 18 QRSd 175 QRS 112 QT 442 T 11 QTc 460 Conclusion SINUS RHYTHM WITH OCCASIONAL VENTRICULAR PREMATURE COMPLEXES RIGHT AXIS DEVIATION [QRS AXIS > 100] RIGHT BUNDLE BRANCH BLOCK [120+ ms QRS DURATION, UPRIGHT V1, 40+ ms S IN I/aVL/V4/V5/V6] ABNORMAL ECG UNCONFIRMED REPORT Electronically signed by : Estrada Gar MD 07/22/2022 21:46:58
[2022-07-21 15:25] LABS: Basophils # 0.1 K/mm3 (0-0.2); Basophils % 0.8 % (0.1-2.0); Eosinophils # 0.2 K/mm3 (0.0-0.4); Eosinophils % 2.5 % (0.1-12.0); Hematocrit 38.3 % (42.0-52.0); Hemoglobin 12.6 g/dL (14.1-18.0); Lymphocytes # 1.2 K/mm3 (0.7-4.5); Lymphocytes % 19.2 % (10-50); Mean Corpuscular HGB Conc 32.8 g/dL (31.8-35.4); Mean Corpuscular Hemoglobin 29.2 pg (27.0-31.2); Mean Corpuscular Volume 89.1 fl (80-94); Mean Platelet Volume 8.6 fl (7.4-10.4); Monocytes # 0.4 K/mm3 (0.1-1.0); Monocytes % 5.4 % (1.7-9.3); Neutrophils # 4.6 K/mm3 (1.8-7.8); Neutrophils % 72.1 % (37.0-80.0); Platelet Count 193 K/mm3 (142-424); Red Cell Distribution Width 17.9 % (11.5-17.5); White Blood Count 6.4 K/mm3 (4.8-10.8)
[2022-07-21 15:26] LABS: Chloride 103 mmol/L (98-107); Potassium 4.1 mmoL/L (3.5-5.1); Sodium 136 mmol/L (136-145)
[2022-07-21 15:29] LABS: Alanine Aminotransferase 18 U/L (12-78); Albumin Level 3.7 g/dl (3.5-5.0); Albumin/Globulin Ratio 1.5 (1.1-1.8); Alkaline Phosphatase 78 U/L (38-126); Anion Gap 11.1 mEq/L (5-15); Aspartate Amino Transferase 29 U/L (17-59); Bilirubin,Total 0.8 mg/dl (0.2-1.3); Blood Urea Nitrogen 21 mg/dl (9-20); Calcium 8.4 mg/dl (8.4-10.2); Carbon Dioxide 26 mmol/L (22.0-30.0); Creatinine Clearance Estimated 83 mL/min (50-200); Estimated Glomerular Filt Rate 41 ml/min (>60); GFR (African American) 49 ML/MIN (>60); Globulin 2.5 g/dL (1.3-3.2); Glucose 248 mg/dl (74-100); Total Protein,Serum 6.2 g/dl (6.3-8.2)
[2022-07-21 15:30] LABS: Lactic Acid 0.7 mmol/L (0.7-2.1)
--- NOTE | 2022-07-21 15:39 | PC.NURSE ---
pt up to use the restroom
--- NOTE | 2022-07-21 16:49 | PC.WOUNDNOTE ---
calling [facility] to speak to dr khalil or whom ever is contract coordinator for him
== END 2022-07-21 17:08 | disposition home or self-care (01) ==
PROVIDERS: Emergency Provider Emergency Medicine; PCP Physician Assistant
DX: J20.9 Acute bronchitis, unspecified (principal); Z98.62 Peripheral vascular angioplasty status; G62.9 Polyneuropathy, unspecified; G47.33 Obstructive sleep apnea (adult) (pediatric); I70.1 Atherosclerosis of renal artery; F17.210 Nicotine dependence, cigarettes, uncomplicated; Z20.822 Contact with and (suspected) exposure to COVID-19
CPT/HCPCS: 71046; 80053; 83605; 85025; 87040; 93005; 96374; 96375; 99285; C9803; J1956; U0003; U0005

== ENCOUNTER 2022-08-14 06:06 | Day surgery (SDC) | payer MEDICARE, SELFPAY ==
[2022-08-14 06:32] VITALS: BP 176/68; PULSE 76; RESP 18; TEMP 36.8; O2SAT 95; BMI 40.6
[2022-08-14 06:39] LABS: POC Glucose,Bedside 455 (70-110)
--- NOTE | 2022-08-14 07:28 | EXP.OP.NOTE ---
Date of procedure: 08/14/22 Pre-op Diagnosis:: Left posterior shoulder/upper back sebaceous cyst with recurrent infection Post-op Diagnosis:: Same Procedure performed:: Excision of left upper back/posterior shoulder cystic lesion Surgeon:: Meliton Calderon MD Anesthesia: local Estimated blood loss (mL): 5 Operative findings:: Changes consistent with low-grade infectious component; therefore, wound left open Operative note:: After informed consent was obtained the patient was taken to the procedure room. He was maintained in a seated position. His left upper back/posterior shoulder was prepped and draped in a sterile fashion. After infiltration local anesthetic an incision was made overlying the central portion of the lesion. The cystic lesion was excised in toto and passed off for pathologic evaluation. Inflammatory changes along the inferior margin consistent with early/forming abscess were noted. The decision was made to pack the wound open (dry gauze). Dressings were applied and the patient was discharged in good condition. Condition: stable Disposition: no change Specimens:: Left posterior shoulder/upper back cystic lesion Complications:: No immediate
[2022-08-14 07:30] VITALS: BP 165/85; PULSE 83; RESP 18; TEMP 36.1; O2SAT 99
[2022-08-14 07:36] VITALS: BP 165/85; PULSE 83; RESP 18; O2SAT 99
--- NOTE | 2022-08-14 08:10 | SUR.OPER ---
0723- All counts were verified and correct during this procedure. Count was completed by this RN and AFouch, Forensic Dna Analyst. Kvng notified of correct counts as well. Count was as follows: (1) hypo (1) blade (5) laps (1) Bovie tip
== END 2022-08-14 07:41 | disposition home or self-care (01) ==
PROVIDERS: PCP Physician Assistant; Visit Provider Surgery
DX: L72.0 Epidermal cyst (principal); E11.9 Type 2 diabetes mellitus without complications; Z72.0 Tobacco use; L08.89 Other specified local infections of the skin and subcutaneous tissue; Z79.899 Other long term (current) drug therapy
CPT/HCPCS: 11402; 82962; 88304

== ENCOUNTER → 2022-08-19 23:38 | Outpatient (CLI) | payer MEDICARE, SELFPAY | PROVIDERS: PCP Student in an Organized Health Care Education/Training Program; Visit Provider Student in an Organized Health Care Education/Training Program | DX: N39.0 Urinary tract infection, site not specified (principal); B96.29 Other Escherichia coli [E. coli] as the cause of diseases classified elsewhere | CPT/HCPCS: 87086; 87186 ==

== ENCOUNTER → 2022-09-24 08:28 | Outpatient (CLI) | payer MEDICARE, SELFPAY | PROVIDERS: PCP Student in an Organized Health Care Education/Training Program; Visit Provider Student in an Organized Health Care Education/Training Program | DX: R50.9 Fever, unspecified (principal) | CPT/HCPCS: C9803; U0003; U0005 ==

== ENCOUNTER → 2022-12-13 06:41 | Outpatient (CLI) | payer MEDICARE, SELFPAY ==
--- NOTE | 2022-12-13 | CA_ITS ---
APPROVED REPORT Exam: Pharmacologic Technologist: Brenda Patel, Ht: 6 ft 0 in Wt: 316 lbs BSA: 2.59 m2 HR: 71 bpm BP: 169/73 mmHg Rhythm: NSR, RBBB, PVC Medical History Medical History: HTN, Hyperlipidemia, Smoking, Diabetic ??? Noninsulin Medications: Omeprazole,,,,, Levothyroxine,,,,, Hydralazine,,,,, Aspirin,,,,, Cephalexin,,,,, Carvedilol,,,,, CloPIdogrel,,,,, MiraLAX,,,,, DOxazosin,,,,, Nitroglycerin,,,,, RoSUVASTATIN,,,,, Ranolazine,,,,, Cardiac Risk Factors: HTN, Hyperlipidemia, Diabetes (non-insulin), Smoking, FHX of CAD Stress Test Details Test: LEXISCAN HR Resting HR: 72 bpm Max Heart Rate (APMHR): 155 bpm Max HR Achieved: 84 bpm Target HR (85% APMHR): 132 bpm % of APMHR: 54 Recovery HR: 82 bpm BP Resting BP: 169/73 mmHg Max BP: 175/74 mmHg Recovery BP: 160.0/80.0 mmHg ECG Resting ECG: NSR, RBBB, PVC Stress ECG: No change Arrhythmia: VPC's Recovery ECG: No change Recovery Arrhythmia: VPC Clinical Exercise duration: 04:01 min Highest Stage Achieved: Exercise capacity: n/a METs Stress ECG Conclusion During lexiscan pt experinced mild SOA, head discomfort. No CP noted. Occasional PVC were present. No significant ST changes following administration of regadenoson. This was an unremarkable lexiscan stress. Myoview images reported separately. Test Summary REST 05:27 . . 72 . 169/ 73 . . Stage 1 01:00 . . 82 . . . . Stage 2 01:00 . . 82 . . . . Stage 3 01:00 . . 78 . 158/ 71 . . Stage 4 01:00 . . 76 . 153/ 67 . . Stage 4 01:01 . . 76 . 153/ 67 . Stop exercise at 04:01 RECOVERY 01:00 . . 82 . . . . RECOVERY 02:00 . . 78 . 160/ 80 . . RECOVERY 03:00 . . 77 . 174/ 78 . . RECOVERY 04:00 . . 74 . 175/ 74 . . RECOVERY 04:26 . . 76 . 175/ 74 . . Electronically signed by : Brittany Jamison, 12/16/2022 00:35:06
--- NOTE | 2022-12-13 07:24 | NM_ITS ---
APPROVED REPORT Exam: Nuclear Stress Test Indication: CAD, 1 STENT, H/O SD, CABG, 3- BY PASSES, HTN, DM, HYPERLIPIDEMIA, FM HX, C.P., SOB, SYNCOPE Patient Location: Outpatient Stress Tech: Brenda Patel CT Tech:Beth Muhammadser, ARRT RT (R)(N)(M) Ht: 6 ft 0 in Wt: 300 lbs HR: 71 bpm BP: 169/73 mmHg BSA: 2.53 m2 TID: 1.18 History: CAD, 1 STENT, H/O SD, CABG, 3- BY PASSES, HTN, DM, HYPERLIPIDEMIA, FM HX, C.P., SOB, SYNCOPE PT COULD NOT LAY ON ABDOMEN FOR PRONE IMAGES Procedure: Patient received 0.4 mg of intravenous Lexiscan, resting heart rate 71 bpm, resting blood pressure 169/73 mmHg, with Lexiscan maximum heart rate achieved was 82 bpm which is % of the maximum predicted heart rate and blood pressure was 158/71 mmHg. With Lexiscan, patient denied any complaint of chest pain. Cardiac Stress and Resting SPECT Images: Cardiac Stress and Resting SPECT images were obtained using technetium 99m Myoview 30.9 mCi stress and 10.55 mCi at rest. The patient could not lay on his abdomen for prone stress imaging. Therefore prone stress images were not obtained. This could affect the diagnostic capacity of the study. Resting and stress imaging in supine position demonstrate a large sized, moderate, fixed perfusion defect in the inferior LV wall from the base and extending distally towards the apex. Gated imaging demonstrates mild reduction in global LV systolic function. There is moderate to severe hypokinesis in the inferior LV wall. LVEF is calculated at 49%. Conclusion: The patient could not lay on his abdomen for prone stress imaging. Therefore prone stress images were not obtained. This could affect the diagnostic capacity of the study. Large sized, moderate, fixed perfusion defect in the inferior LV wall from the base and extending distally towards the apex. This finding most likely represents prior infarct with no evidence of reversible ischemia. Gated imaging demonstrates mild reduction in global LV systolic function. There is moderate to severe hypokinesis in the inferior LV wall. LVEF is calculated at 49%. Electronically signed by : Brittany Jamison, 12/16/2022 00:41:10
--- NOTE | 2022-12-13 08:44 | CA_ITS ---
FINAL REPORT CLINICAL HISTORY: nathan, hx- rt CEA, Known 50-69% LICA stenosis. COMPARISON: 09/10/2021 FINDINGS: RIGHT CAROTID: CCA PSV 64 cm/sec ICA PSV 61 cm/sec ICA/CCA PSV ratio 0.95 Comments: Mild plaque disease is noted. LEFTCAROTID: CCA PSV 90 cm/sec ICA PSV 143 cm/sec ICA/CCA PSV ratio 1.98 Comments: Moderate plaque disease is noted. Antegrade flow is seen within the vertebral arteries. IMPRESSION: Less than 50% stenosis bilaterally. Reviewed, Interpreted and Dictated by Mauricio Lima MD Transcribed by Salome Stokes Authenticated and . [facility]
== END ==
LOC: RAD 06:42
PROVIDERS: PCP Student in an Organized Health Care Education/Training Program; Visit Provider Nurse Practitioner Family
DX: I65.23 Occlusion and stenosis of bilateral carotid arteries; R06.02 Shortness of breath; I20.8 Other forms of angina pectoris
CPT/HCPCS: 78452; 93017; 93306; 93880; A9502; J2785

== ENCOUNTER 2023-02-16 14:37 | Emergency (ER) | payer MEDICARE, SELFPAY ==
[2023-02-16] VITALS (7 sets, daily range): BP systolic 135–169; BP diastolic 58–77; PULSE 66–84; RESP 9–22; TEMP 36.8; O2SAT 95–99; BMI 40.6
--- NOTE | 2023-02-16 14:36 | ECG_ITS ---
APPROVED REPORT Exam: Resting ECG HR:83 bpm ECG Measurements Heart Rate 83 AXES NV 176 P 1 QRSd 159 QRS 136 QT 427 T 13 QTc 467 Conclusion SINUS RHYTHM RIGHT AXIS DEVIATION [QRS AXIS > 100] RIGHT BUNDLE BRANCH BLOCK [120+ ms QRS DURATION, UPRIGHT V1, 40+ ms S IN I/aVL/V4/V5/V6] ABNORMAL ECG UNCONFIRMED REPORT Electronically signed by : Estrada Gar MD 02/17/2023 14:01:43
--- NOTE | 2023-02-16 14:43 | XR_ITS ---
PROCEDURE INFORMATION: Exam: XR Chest Exam date and time: 02/16/2023 2:45 PM Age: 67 years old Clinical indication: Pain; Chest pressure; Additional info: Chest pain TECHNIQUE: Imaging protocol: Radiologic exam of the chest. Views: 1 view. Portable upright chest x-ray. COMPARISON: CR XR CHEST 2V 07/21/2022 2:17 PM FINDINGS: Lungs: No consolidation or lung nodules. Pleural spaces: No pleural effusion. No pneumothorax. Heart/Mediastinum: No abnormalities. No cardiomegaly. No pulmonary vascular congestion. Bones/joints: Sternotomy wires. IMPRESSION: No acute findings in the chest. No interval change since 07/21/2022.
[2023-02-16 14:53] LABS: Basophils % 0.3 % (0.1-2.0); Eosinophils # 0.1 K/mm3 (0.0-0.4); Hematocrit 39.4 % (42.0-52.0); Hemoglobin 12.3 g/dL (14.1-18.0); Lymphocytes # 1.3 K/mm3 (0.7-4.5); Lymphocytes % 23.1 % (10-50); Mean Corpuscular HGB Conc 31.3 g/dL (31.8-35.4); Mean Corpuscular Hemoglobin 28.5 pg (27.0-31.2); Mean Corpuscular Volume 90.9 fl (80-94); Mean Platelet Volume 8.9 fl (7.4-10.4); Monocytes # 0.3 K/mm3 (0.1-1.0); Monocytes % 5.8 % (1.7-9.3); Neutrophils # 3.7 K/mm3 (1.8-7.8); Neutrophils % 68.7 % (37.0-80.0); Platelet Count 193 K/mm3 (142-424); Red Blood Count 4.34 M/mm3 (4.60-6.20); Red Cell Distribution Width 17.7 % (11.5-17.5); White Blood Count 5.4 K/mm3 (4.8-10.8)
--- NOTE | 2023-02-16 15:01 | HMH.EDGENADL ---
Discharge Plan Disposition Patient Disposition: Home, Self-Care Condition: Good Prescriptions Prescriptions: No Action omeprazole 40 mg capsule,delayed release(DR/EC) 40 mg PO DAILY Qty: 90 1RF polyethylene glycol 3350 [Miralax] 17 gram/dose powder 17 g PO DAILY cephalexin 250 mg capsule 250 mg PO DAILY Patient Comments: TAKE 1 CAPSULE BY MOUTH ONCE DAILY ranolazine 1,000 mg tablet extended release 12 hr 1,000 mg PO BID Qty: 180 1RF doxazosin 4 mg tablet 4 mg PO DAILY carvedilol 25 mg tablet 25 mg PO BID Qty: 180 3RF clopidogrel 75 mg tablet 75 mg PO DAILY Qty: 90 3RF hydralazine 100 mg tablet 100 mg PO BID Qty: 180 3RF rosuvastatin 40 mg tablet 40 mg PO HS Qty: 90 3RF spironolactone 25 mg tablet 25 mg PO DIRECTED Qty: 90 3RF Rx Instructions: MON/WED/FRI only nitroglycerin 0.4 mg tablet, sublingual 0.4 mg sublingual Q5M PRN (Reason: chest pain) Qty: 25 0RF Rx Instructions: do not exceed 3 doses per episode levothyroxine 75 MCG tablet 75 mcg PO DAILY insulin NPH and regular human 100 unit/mL (70-30) suspension 60 unit SQ .COMPLEX Rx Instructions: 60 units subcutaneously tid; aspirin 81 MG tablet,delayed release (DR/EC) 81 mg PO DAILY Referrals Follow up/Referrals: Provider,Referral, MD [Referring] - See instructions Clinical Impressions Clinical Impression: Acute hyperglycemia Hypertension Qualifiers: Hypertension type: primary hypertension Qualified Code(s): I10 - Essential (primary) hypertension Discharge ED Provider: Cristino Mcfadden Adult HPI General Chief complaint: Chest Pain Stated complaint: chest pain Time Seen by Provider: 02/16/23 15:01 Mode of Arrival: Wheelchair Source of Information: Patient Limitations: No Limitations Description of Symptoms (Recalled from ER Triage Doc. by RN): PT WITH C/O CHEST PRESSURE THAT STARTED ABOUT 1130, REPORTS INCREASED SHORTNESS OF BREATH, WEAKNESS AND NAUSEA History of Present Illness HPI narrative: Patient presents for evaluation of multiple symptoms including substernal nonradiating nonexertional nonpleuritic chest pain that is moderate in severity, has had similar symptoms before associated with hypertension, no previous therapies, denies any fevers or chills or cough or wheezing. Symptoms have been improving since onset. Per chart review has multiple comorbidities including history of TIA, DANY, exertional dyspnea, carotid artery stenosis, known history of angina. Symptoms started several hours prior to arrival. Denies any palpitations, denies any syncope or presyncope. Denies any injury. Denies any unilateral leg pain or leg swelling, however does describe mild bilateral lower extremity swelling. Related Data Home Medications Medication Instructions Recorded Confirmed levothyroxine 75 mcg tablet 75 mcg PO DAILY hypothyroidism 06/19/19 11/21/22 aspirin 81 mg tablet,delayed 81 mg PO DAILY heart health 06/04/21 11/21/22 release insulin human U-100 NPH-regulr 60 unit SQ .COMPLEX Diabetes 05/13/22 11/21/22 70-30 mix 100 unit/mL subcutaneous susp doxazosin 4 mg tablet 4 mg PO DAILY * 06/18/22 11/21/22 polyethylene glycol 3350 17 17 g PO DAILY constipation 06/26/22 11/21/22 gram/dose oral powder (Miralax) cephalexin 250 mg capsule 250 mg PO DAILY 11/21/22 11/21/22 Previous Rx's Medication Instructions Recorded omeprazole 40 mg capsule,delayed 40 mg PO DAILY acid reflux #90 caps 11/14/21 release carvedilol 25 mg tablet 25 mg PO BID HEART #180 tabs 05/02/22 clopidogrel 75 mg tablet 75 mg PO DAILY thinner #90 tabs 05/02/22 hydralazine 100 mg tablet 100 mg PO BID blood pressure #180 05/02/22 tabs rosuvastatin 40 mg tablet 40 mg PO HS Cholesterol #90 tabs 05/02/22 spironolactone 25 mg tablet 25 mg PO DIRECTED Edema #90 tabs 05/02/22 nitroglycerin 0.4 mg sublingual 0.4 mg sublingual Q5M PRN chest 09/04/22 tablet pain #25
[2023-02-16 15:09] LABS: Alanine Aminotransferase 24 U/L (12-78); Albumin Level 3.9 g/dl (3.5-5.0); Albumin/Globulin Ratio 1.3 (1.1-1.8); Alkaline Phosphatase 84 U/L (38-126); Anion Gap 11.6 mEq/L (5-15); Aspartate Amino Transferase 27 U/L (17-59); Bilirubin,Total 1.1 mg/dl (0.2-1.3); Blood Urea Nitrogen 18 mg/dl (9-20); Carbon Dioxide 27 mmol/L (22.0-30.0); Chloride 102 mmol/L (98-107); Creatinine Clearance Estimated 79 mL/min (50-200); Estimated Glomerular Filt Rate 38 ml/min (>60); GFR (African American) 46 ML/MIN (>60); Glucose 367 mg/dl (74-100); Potassium 4.6 mmoL/L (3.5-5.1); Sodium 136 mmol/L (136-145); Total Protein,Serum 6.9 g/dl (6.3-8.2)
[2023-02-16 15:27] LABS: Troponin I < 0.01 ng/ml (0.00-0.034)
[2023-02-16 16:18] LABS: NT Pro Brain Natriuretic Pep. 447 pg/mL (0-125)
--- NOTE | 2023-02-16 16:36 | PC.NURSE ---
ROUNDED ON PT, NO NEEDS AT THIS TIME
--- NOTE | 2023-02-16 17:37 | PC.NURSE ---
green to tube sent to lab for second tropnin, notified lab
[2023-02-16 18:04] LABS: Troponin I < 0.01 ng/ml (0.00-0.034)
[2023-02-16 20:02] LABS: POC Glucose,Bedside 318 (70-110)
== END 2023-02-16 20:20 | disposition home or self-care (01) ==
PROVIDERS: Emergency Medicine; Emergency Provider Emergency Medicine; PCP Physician Assistant
DX: R07.9 Chest pain, unspecified (principal); I10 Essential (primary) hypertension; R06.02 Shortness of breath; I20.9 Angina pectoris, unspecified; R73.9 Hyperglycemia, unspecified; I65.29 Occlusion and stenosis of unspecified carotid artery; Z86.73 Personal history of transient ischemic attack (TIA), and cerebral infarction without residual deficits
CPT/HCPCS: 71045; 80053; 82962; 83880; 84484; 85025; 93005; 93041; 96374; 96375; 99285; J2405

== ENCOUNTER 2023-04-01 17:08 | Emergency (ER) | payer MEDICARE, SELFPAY ==
[2023-04-01 18:00] VITALS: BP 161/74; PULSE 76; RESP 20; TEMP 36.8; O2SAT 96; BMI 40.6
--- NOTE | 2023-04-01 20:07 | HMH.EDGENADL ---
Discharge Plan Disposition Patient Disposition: Home, Self-Care Chief Complaint: Wound/Laceration Prescriptions Prescriptions: No Action omeprazole 40 mg capsule,delayed release(DR/EC) 40 mg PO DAILY Qty: 90 1RF polyethylene glycol 3350 [Miralax] 17 gram/dose powder 17 g PO DAILY cephalexin 250 mg capsule 250 mg PO DAILY Patient Comments: TAKE 1 CAPSULE BY MOUTH ONCE DAILY ranolazine 1,000 mg tablet extended release 12 hr 1,000 mg PO BID Qty: 180 1RF doxazosin 4 mg tablet 4 mg PO DAILY carvedilol 25 mg tablet 25 mg PO BID Qty: 180 3RF hydralazine 100 mg tablet 100 mg PO BID Qty: 180 3RF rosuvastatin 40 mg tablet 40 mg PO HS Qty: 90 3RF spironolactone 25 mg tablet 25 mg PO DIRECTED Qty: 90 3RF Rx Instructions: MON/WED/FRI only nitroglycerin 0.4 mg tablet, sublingual 0.4 mg sublingual Q5M PRN (Reason: chest pain) Qty: 25 0RF Rx Instructions: do not exceed 3 doses per episode clopidogrel 75 mg tablet See Rx Instructions .ROUTE .COMPLEX Qty: 90 1RF Dose Instruction: TAKE 1 TABLET EVERY DAY Rx Instructions: TAKE 1 TABLET EVERY DAY levothyroxine 75 MCG tablet 75 mcg PO DAILY insulin NPH and regular human 100 unit/mL (70-30) suspension 60 unit SQ .COMPLEX Rx Instructions: 60 units subcutaneously tid; aspirin 81 MG tablet,delayed release (DR/EC) 81 mg PO DAILY Referrals Follow up/Referrals: Elaina Carvalho PA [Primary Care Provider] - See instructions Activity Restrictions/Add. Instructions Additional Instructions/Restrictions: At this time is felt you are safe to be discharged home. If new or worsening symptoms please do not hesitate to return the emergency department. Please wear your splint for approximately 7 to 10 days while wound is healing. If signs of infection please return immediately for evaluation. Clinical Impressions Clinical Impression: Finger laceration Instructions Patient Instructions: DI for Laceration Repair Discharge ED Provider: Drake Boykin General Adult HPI General Chief complaint: Wound/Laceration Stated complaint: AO/ LT index finger lac Time Seen by Provider: 04/01/23 19:45 Mode of Arrival: Ambulatory Source of Information: Patient Limitations: No Limitations Description of Symptoms (Recalled from ER Triage Doc. by RN): pt states he was working on a metal shed when he cut his left index finger. no bleeding noted at this time. pt reports he takes plavix. pt unable to report when last tdap was. History of Present Illness HPI narrative: Patient is a 67-year-old male on aspirin and Plavix who presents emergency department for evaluation of a laceration. Patient was building a metal shed when he suffered a laceration to the dorsal aspect of his left index finger. Due to persistent bleeding he presents here for continued evaluation. No other acute complaints at this time. Related Data Home Medications Medication Instructions Recorded Confirmed levothyroxine 75 mcg tablet 75 mcg PO DAILY hypothyroidism 06/19/19 11/21/22 aspirin 81 mg tablet,delayed 81 mg PO DAILY heart health 06/04/21 11/21/22 release insulin human U-100 NPH-regulr 60 unit SQ .COMPLEX Diabetes 05/13/22 11/21/22 70-30 mix 100 unit/mL subcutaneous susp doxazosin 4 mg tablet 4 mg PO DAILY * 06/18/22 11/21/22 polyethylene glycol 3350 17 17 g PO DAILY constipation 06/26/22 11/21/22 gram/dose oral powder (Miralax) cephalexin 250 mg capsule 250 mg PO DAILY 11/21/22 11/21/22 Previous Rx's Medication Instructions Recorded omeprazole 40 mg capsule,delayed 40 mg PO DAILY acid reflux #90 caps 11/14/21 release carvedilol 25 mg tablet 25 mg PO BID HEART #180 tabs 05/02/22 hydralazine 100 mg tablet 100 mg PO BID blood pressure #180 05/02/22 tabs rosuvastatin 40 mg tablet 40 mg PO HS Cholesterol #90 tabs 05/02/22 spironolactone 25 mg tablet 25 mg PO DIRECTED Edema #
[2023-04-01 20:17] VITALS: BP 161/74; PULSE 76; RESP 20; TEMP 36.8; O2SAT 96
== END 2023-04-01 20:19 | disposition home or self-care (01) ==
PROVIDERS: Emergency Provider Emergency Medicine; PCP Physician Assistant
DX: S61.211A Laceration without foreign body of left index finger without damage to nail, initial encounter (principal); I20.9 Angina pectoris, unspecified; I65.29 Occlusion and stenosis of unspecified carotid artery; G62.9 Polyneuropathy, unspecified; G47.33 Obstructive sleep apnea (adult) (pediatric); I70.1 Atherosclerosis of renal artery; Z86.73 Personal history of transient ischemic attack (TIA), and cerebral infarction without residual deficits; Z79.02 Long term (current) use of antithrombotics/antiplatelets; Z79.82 Long term (current) use of aspirin; W26.8XXA Contact with other sharp object(s), not elsewhere classified, initial encounter; Z23 Encounter for immunization
CPT/HCPCS: 12001; 90715; 96372; 99283

== ENCOUNTER → 2023-04-07 23:28 | Outpatient (CLI) | payer MEDICARE, SELFPAY ==
[2023-04-07 18:28] LABS: Iron 66 ug/dL (49-181)
[2023-04-07 18:37] LABS: Total Iron Binding Capacity 314 ug/dL (261-462)
[2023-04-07 19:05] LABS: Ferritin 38.5 ng/ml (17.9-464)
== END ==
PROVIDERS: PCP Physician Assistant; Visit Provider Internal Medicine
DX: D64.9 Anemia, unspecified (principal); Z79.4 Long term (current) use of insulin; E11.9 Type 2 diabetes mellitus without complications
CPT/HCPCS: 82728; 83036; 83540; 83550

== ENCOUNTER → 2023-04-08 10:21 | Outpatient (POV) | payer MEDICARE, SELFPAY | PROVIDERS: Visit Provider Dermatology | DX: Z00.00 Encounter for general adult medical examination without abnormal findings (principal) ==

== ENCOUNTER 2023-05-04 18:12 | Observation (INO) | payer MEDICARE, SELFPAY ==
[2023-05-04] VITALS (7 sets, daily range): BP systolic 144–179; BP diastolic 63–86; PULSE 69–78; RESP 15–21; TEMP 36.6–36.7; O2SAT 96–99; BMI 40.6
--- NOTE | 2023-05-04 18:12 | ECG_ITS ---
APPROVED REPORT Exam: Resting ECG HR:76 bpm ECG Measurements Heart Rate 76 AXES ID 202 P 53 QRSd 157 QRS 128 QT 434 T 7 QTc 464 Conclusion SINUS RHYTHM RIGHT BUNDLE BRANCH BLOCK [120+ ms QRS DURATION, UPRIGHT V1, 40+ ms S IN I/aVL/V4/V5/V6] LEFT POSTERIOR FASCICULAR BLOCK [QRS AXIS > 109, INFERIOR Q] ABNORMAL ECG UNCONFIRMED REPORT Electronically signed by : Estrada Gar MD 05/05/2023 20:21:40
--- NOTE | 2023-05-04 18:28 | XR_ITS ---
PROCEDURE INFORMATION: Exam: XR Chest Exam date and time: 05/04/2023 6:52 PM Age: 67 years old Clinical indication: Pain; Chest pressure; Additional info: Chest pain TECHNIQUE: Imaging protocol: Radiologic exam of the chest. Views: 1 view. COMPARISON: CR XR CHEST PORTABLE 02/16/2023 2:45 PM FINDINGS: Lungs: Unremarkable. No consolidation. Pleural spaces: Unremarkable. No pleural effusion. No pneumothorax. Heart/Mediastinum: Unremarkable. No cardiomegaly. Bones/joints: Sternotomy wires remain in place. IMPRESSION: No acute disease
[2023-05-04 18:41] LABS: Basophils % 0.6 % (0.1-2.0); Eosinophils # 0.1 K/mm3 (0.0-0.4); Eosinophils % 1.8 % (0.1-12.0); Hematocrit 38.4 % (42.0-52.0); Hemoglobin 12.9 g/dL (14.1-18.0); Lymphocytes # 1.5 K/mm3 (0.7-4.5); Lymphocytes % 23.4 % (10-50); Mean Corpuscular HGB Conc 33.7 g/dL (31.8-35.4); Monocytes # 0.4 K/mm3 (0.1-1.0); Neutrophils # 4.3 K/mm3 (1.8-7.8); Neutrophils % 68.2 % (37.0-80.0); Platelet Count 171 K/mm3 (142-424); Red Blood Count 4.17 M/mm3 (4.60-6.20); Red Cell Distribution Width 16.6 % (11.5-17.5); White Blood Count 6.4 K/mm3 (4.8-10.8)
[2023-05-04 18:42] LABS: Potassium 4.4 mmoL/L (3.5-5.1); Sodium 139 mmol/L (136-145)
[2023-05-04 18:44] LABS: Chloride 103 mmol/L (98-107)
[2023-05-04 18:45] LABS: Anion Gap 12.4 mEq/L (5-15); Blood Urea Nitrogen 17 mg/dl (9-20); Calcium 8.8 mg/dl (8.4-10.2); Carbon Dioxide 28 mmol/L (22.0-30.0); Creatinine Clearance Estimated 75 mL/min (50-200); Estimated Glomerular Filt Rate 36 ml/min (>60); GFR (African American) 43 ML/MIN (>60); Glucose 209 mg/dl (74-100)
[2023-05-04 18:58] LABS: Troponin I < 0.01 ng/ml (0.00-0.034)
--- NOTE | 2023-05-04 19:00 | CT_ITS ---
PROCEDURE INFORMATION: Exam: CTA Chest With Contrast Exam date and time: 05/04/2023 7:25 PM Age: 67 years old Clinical indication: Pain; Chest pressure; Additional info: Cp rad to back TECHNIQUE: Imaging protocol: Computed tomographic angiography of the chest with contrast. Exam focused on the arteries. 3D rendering (Not supervised by radiologist): MIP and/or 3D reconstructed images were created by the technologist. Radiation optimization: All CT scans at this facility use at least one of these dose optimization techniques: automated exposure control; mA and/or kV adjustment per patient size (includes targeted exams where dose is matched to clinical indication); or iterative reconstruction. Contrast material: ISOVUE; Contrast volume: 100 ml; Contrast route: INTRAVENOUS (IV); REPORTING DATA: Count of CT and Cardiac NM exams in prior 12 months: This patient has received 0 known CTs and 0 known cardiac nuclear medicine studies in the 12 months prior to the current study. COMPARISON: CT ANGIO CHEST PE PROTOCOL 06/30/2021 11:13 PM FINDINGS: Pulmonary arteries: Normal. No pulmonary emboli. Aorta: Mild diffuse atherosclerotic calcification. No aortic aneurysm. No aortic dissection. Lungs: Unremarkable. No consolidation. No masses. Pleural spaces: Unremarkable. No pneumothorax. No pleural effusion. Heart: Unremarkable. No cardiomegaly. No pericardial effusion. Lymph nodes: Unremarkable. No enlarged lymph nodes. Bones/joints: Old post sternotomy changes noted. Mild degenerative disc changes throughout the thoracic spine. No vertebral body compression or acute fracture. Soft tissues: Unremarkable. IMPRESSION: No acute abnormality
--- NOTE | 2023-05-04 19:01 | HMH.EDGENADL ---
Discharge Plan Disposition Patient Disposition: Admitted Prescriptions Prescriptions: No Action omeprazole 40 mg capsule,delayed release(DR/EC) 40 mg PO DAILY Qty: 90 1RF polyethylene glycol 3350 [Miralax] 17 gram/dose powder 17 g PO DAILY ranolazine 1,000 mg tablet extended release 12 hr 1,000 mg PO BID Qty: 180 1RF doxazosin 4 mg tablet 4 mg PO DAILY isosorbide mononitrate 30 mg tablet extended release 24 hr 30 mg PO TID carvedilol 25 mg tablet 25 mg PO BID Qty: 180 3RF hydralazine 100 mg tablet 100 mg PO BID Qty: 180 3RF rosuvastatin 40 mg tablet 40 mg PO HS Qty: 90 3RF spironolactone 25 mg tablet 25 mg PO DIRECTED Qty: 90 3RF Rx Instructions: MON/WED/FRI only nitroglycerin 0.4 mg tablet, sublingual 0.4 mg sublingual Q5M PRN (Reason: chest pain) Qty: 25 0RF Rx Instructions: do not exceed 3 doses per episode clopidogrel 75 mg tablet See Rx Instructions .ROUTE .COMPLEX Qty: 90 1RF Dose Instruction: TAKE 1 TABLET EVERY DAY Rx Instructions: TAKE 1 TABLET EVERY DAY (DME) Blood Glucose Test Strip See Rx Instructions .Route Qty: 200 1RF Rx Instructions: Check sugar twice daily or as directed levothyroxine 75 MCG tablet 75 mcg PO DAILY insulin NPH and regular human 100 unit/mL (70-30) suspension 60 unit SQ .COMPLEX Rx Instructions: 60 units subcutaneously tid; aspirin 81 MG tablet,delayed release (DR/EC) 81 mg PO DAILY Referrals Follow up/Referrals: Elaina Carvalho PA [Primary Care Provider] - See instructions Clinical Impressions Clinical Impression: Angina pectoris, unstable Discharge ED Provider: Drake Boykin General Adult HPI General Chief complaint: Chest Pain Stated complaint: CP Time Seen by Provider: 05/04/23 18:35 Mode of Arrival: Wheelchair Source of Information: Patient Limitations: No Limitations Description of Symptoms (Recalled from ER Triage Doc. by RN): 67 yo M presents to ED with c/o chest pain located in left chest, shortness of air, weakness, high blood pressure. pt reports all symptoms began today after anglican. History of Present Illness HPI narrative: Patient is 67-year-old male with past medical history of ACS status post stenting, triple bypass, hyperlipidemia, GERD, hypothyroidism, diabetes solitary kidney who presents to the emergency department for evaluation of chest pain. Onset was acute, occurring at 3:30 PM. Substernal radiating through to his left shoulder blade and the back. No other acute complaints at this time. Related Data Home Medications Medication Instructions Recorded Confirmed levothyroxine 75 mcg tablet 75 mcg PO DAILY hypothyroidism 06/19/19 04/07/23 aspirin 81 mg tablet,delayed 81 mg PO DAILY heart health 06/04/21 04/07/23 release insulin human U-100 NPH-regulr 60 unit SQ .COMPLEX Diabetes 05/13/22 04/07/23 70-30 mix 100 unit/mL subcutaneous susp doxazosin 4 mg tablet 4 mg PO DAILY * 06/18/22 04/07/23 polyethylene glycol 3350 17 17 g PO DAILY constipation 06/26/22 04/07/23 gram/dose oral powder (Miralax) isosorbide mononitrate 30 mg 30 mg PO TID 04/07/23 04/07/23 tablet,extended release 24 hr Previous Rx's Medication Instructions Recorded omeprazole 40 mg capsule,delayed 40 mg PO DAILY acid reflux #90 caps 11/14/21 release carvedilol 25 mg tablet 25 mg PO BID HEART #180 tabs 05/02/22 hydralazine 100 mg tablet 100 mg PO BID blood pressure #180 05/02/22 tabs rosuvastatin 40 mg tablet 40 mg PO HS Cholesterol #90 tabs 05/02/22 spironolactone 25 mg tablet 25 mg PO DIRECTED Edema #90 tabs 05/02/22 nitroglycerin 0.4 mg sublingual 0.4 mg sublingual Q5M PRN chest 09/04/22 tablet pain #25 tabs ranolazine 1,000 mg 1,000 mg PO BID #180 tabs 11/21/22 tablet,extended release,12 hr clopidogrel 75 mg tablet See Rx Instructions .Route 03/24/23 .COMPLEX #90 tabs blood sugar diagnostic (Blood #200 ea
--- NOTE | 2023-05-04 19:11 | PC.NURSE ---
patient gone to CT at this time.
--- NOTE | 2023-05-04 19:46 | PC.NURSE ---
patient back in room at this time.
--- NOTE | 2023-05-04 20:38 | PC.NURSE ---
asked admissions to page Dr. Carver for .
--- NOTE | 2023-05-04 20:48 | PC.NURSE ---
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
--- NOTE | 2023-05-04 20:50 | PC.NURSE ---
Observation admission to 207 with unstable angina to service of hospitalist.
--- NOTE | 2023-05-04 21:14 | PC.NURSE ---
2109 received phone report from Zahraa Medina RN/ED nurse. PATIENT IS 67 YO MALE. DIAGNOSIS UNSTABLE ANGINA. NKA. TO TRANSFER VIA W/C.
--- NOTE | 2023-05-04 21:22 | PC.NURSE ---
pt to floor via wheel chair
--- NOTE | 2023-05-04 21:36 | EXP.HP ---
History of Present Illness *Admission Date: 05/04/23 *Reason for visit:: Chest Pain *History of present illness: 67 year old male presented to the ED for c/o CP that radiates to his left arm. PMHX of CAD, DM, hypothyroid, HTN, and HLD. The patient states his CP started at 330 while watching TV. The ED work up revealed unremarkable lab values interpreted by me, 1st troponin negative, EKG reviewed by me and reveals RBBB, and chest xray and chest CTA reviewed by me and reveals no abnormalities. The ED physician consulted Cardiology who recommended admission for serial troponins. The ED physician consulted hospitalist. I admitted the pt to the medical floor under med surg with telemetry overnight. I will continue to trend his troponins, treat his chronic DM, and I ordered repeat CBC and BMP for the morning. He arrives to the medical floor without c/o CP, nausea, vomiting, or diarrhea. If chest pain develops overnight I will repeat his EKG. I placed a cardiology consult for the morning. [facility] Disclaimer: The information contained in this section may have been updated after the patient was seen, as this information can be updated by other users. Medical History Angina pectoris Carotid artery stenosis Right ICA endarterectomy Cataract Cyst of soft tissue Hearing loss History of transient ischemic attack (TIA) Left hip pain Neuropathy DANY (obstructive sleep apnea) LUKASZ (renal artery stenosis) Sciatic leg pain SOB (shortness of breath) on exertion Surgical History History of cholecystectomy HX of R carotid artery surgery History of colonoscopy History of hernia repair Hx of heart artery stent Family History Other Family history of acute congestive heart failure Social History Smoking Status: Never smoker alcohol intake: never substance use type: denies use current occupational status: other Travel in the last 8 weeks: None household members: family housing: house current occupational exposures/hazards: No caffeine: Yes Review of Systems *Cardiovascular Cardiovascular: Reports chest pain *Respiratory Respiratory: Reports system reviewed and no additional complaints, except as documented *Gastrointestinal Gastrointestinal: Reports system reviewed and no additional complaints, except as documented *Genitourinary Genitourinary: Reports system reviewed and no additional complaints, except as documented *Musculoskeletal Musculoskeletal: Reports radiating pain into limb (left arm) *Neurologic Neurologic: Reports system reviewed and no additional complaints, except as documented Meds Home Medications and Allergies Home Medications Medication Instructions Recorded Confirmed Type levothyroxine 75 mcg tablet 75 mcg PO DAILY hypothyroidism 06/19/19 05/04/23 History aspirin 81 mg tablet,delayed 81 mg PO DAILY heart health 06/04/21 05/04/23 History release omeprazole 40 mg capsule,delayed 40 mg PO DAILY acid reflux #90 caps 11/14/21 05/04/23 Rx release hydralazine 100 mg tablet 100 mg PO BID blood pressure #180 05/02/22 05/04/23 Rx tabs rosuvastatin 40 mg tablet 40 mg PO HS Cholesterol #90 tabs 05/02/22 05/04/23 Rx spironolactone 25 mg tablet 25 mg PO DIRECTED Edema #90 tabs 05/02/22 05/04/23 Rx insulin human U-100 NPH-regulr 75 unit SQ TID Diabetes 05/13/22 05/04/23 History 70-30 mix 100 unit/mL subcutaneous susp doxazosin 4 mg tablet 4 mg PO DAILY 06/18/22 05/04/23 History polyethylene glycol 3350 17 17 g PO DAILYP PRN Constipation 06/26/22 05/05/23 History gram/dose oral powder (Miralax) nitroglycerin 0.4 mg sublingual 0.4 mg sublingual Q5M PRN chest 09/04/22 05/04/23 Rx tablet pain #25 tabs ranolazine 1,000 mg 1,000 mg PO BID #180 tabs 11/21/22
[2023-05-04 21:53] LABS: Troponin I < 0.01 ng/ml (0.00-0.034)
--- NOTE | 2023-05-04 22:07 | PC.NURSE ---
ARRIVED TO THE FLOOR FROM THE ED VIA W/C AT 2119. ADMITTED TO ROOM 207.
[2023-05-04 22:19] LABS: Hemoglobin A1C 6.4 % (4.0-6.0)
[2023-05-04 22:42] LABS: Thyroid Stimulating Hormone 1.71 uIU/mL (0.465-4.68)
[2023-05-04 23:53] LABS: POC Glucose,Bedside 76 (70-110)
[2023-05-05] VITALS (15 sets, daily range): BP systolic 88–202; BP diastolic 35–92; PULSE 60–76; RESP 16–18; TEMP 36.4–36.8; O2SAT 91–100; BMI 40.6
--- NOTE | 2023-05-05 00:44 | PC.NURSE ---
0030 BP ELEVATED 181/92 HR 74 . PATIENT ASYMPTOMATIC. BRENNA, N.P. NOTIFIED. NO NEW ORDERS.
[2023-05-05 01:00] LABS: Troponin I < 0.01 ng/ml (0.00-0.034)
[2023-05-05 05:16] LABS: POC Glucose,Bedside 82 (70-110)
--- NOTE | 2023-05-05 05:54 | PC.NURSE ---
PATIENT DENIES CHEST PAIN/SOA/DISCOMFORT. BLOOD SUGARS 76 AND 82 THIS SHIFT. HYDRALAZINE 100 MG PO EFFECTIVE; BROUGHT BP 202/89 DOWN TO 158/73. NAD. HAS BEEN NPO SINCE [place].
[2023-05-05 06:14] LABS: Basophils % 0.6 % (0.1-2.0); Eosinophils # 0.1 K/mm3 (0.0-0.4); Eosinophils % 2.1 % (0.1-12.0); Hematocrit 40.4 % (42.0-52.0); Hemoglobin 13.4 g/dL (14.1-18.0); Lymphocytes # 1.5 K/mm3 (0.7-4.5); Mean Corpuscular HGB Conc 33.2 g/dL (31.8-35.4); Mean Corpuscular Hemoglobin 31.2 pg (27.0-31.2); Mean Corpuscular Volume 93.9 fl (80-94); Mean Platelet Volume 8.3 fl (7.4-10.4); Monocytes # 0.4 K/mm3 (0.1-1.0); Monocytes % 6.4 % (1.7-9.3); Neutrophils # 4.7 K/mm3 (1.8-7.8); Platelet Count 170 K/mm3 (142-424); Red Cell Distribution Width 16.8 % (11.5-17.5); White Blood Count 6.7 K/mm3 (4.8-10.8)
[2023-05-05 06:19] LABS: Chloride 103 mmol/L (98-107); Potassium 4.3 mmoL/L (3.5-5.1); Sodium 139 mmol/L (136-145)
[2023-05-05 06:22] LABS: Anion Gap 11.3 mEq/L (5-15); Blood Urea Nitrogen 16 mg/dl (9-20); Carbon Dioxide 29 mmol/L (22.0-30.0); Creatinine Clearance Estimated 71 mL/min (50-200); Estimated Glomerular Filt Rate 34 ml/min (>60); GFR (African American) 41 ML/MIN (>60)
[2023-05-05 06:23] LABS: Calcium 8.9 mg/dl (8.4-10.2); Glucose 79 mg/dl (74-100)
--- NOTE | 2023-05-05 08:07 | IR_ITS ---
APPROVED REPORT Patient Location: Inpatient PROCEDURES Right selective renal angiogram Drug-eluting stent deployment to the ostial proximal right renal artery Bare-metal stent deployment to the ostial right renal artery INDICATION Renovascular hypertension, Renal artery stenosis, Malignant hypertension Informed consent was obtained prior to the procedure. COMPLICATIONS None Estimated Blood Loss: Less than 10 ml TECHNIQUE 1% lidocaine used to anesthetize the right femoral groin. The right femoral artery was accessed via the Seldinger technique. A 5 [place]orran sheath is placed in the right renal artery and a GUZMAN guide catheter was used to intubate the right renal artery and perform selective angiography. Following the diagnostic angiogram therapeutic Was administered giving a therapeutic ACT and the 5 Andorran sheath was exchanged for 6 Andorran sheath. A 6 [place]ran GUZMAN guide catheter was placed in the right renal artery followed by Choice PT extra-support wire. A 5 mm x 22 mm Km frontier stent was deployed at 24 samaria reducing the stenosis. There was still a significant ostial stenosis therefore a 6 mm x 20 mm peripheral balloon was deployed at 24 samaria trying to further post dilate and reduce the stenosis. When this failed to adequately reduce the stenosis a 7 mm x 20 mm balloon was then advanced and deployed at 20 samaria. Given this extended the normal struts size for drug-eluting stent it was decided to place a 6.5 x 12 mm Herculink stent in the ostial segment of the right renal artery. This was deployed at 22 samaria. This gave an excellent angiographic result with wide patency of the ostium and excellent transitioning into the distal drug-eluting stent. After achieving excellent angiographic results the apparatus was removed the groin was reprepped closure change sheath was removed and hemostasis was achieved using Perclose device patient was transferred to the postop holding in stable condition ANGIOGRAPHIC RESULTS Right renal artery is singular and has an ostial eccentric 70% stenosis which produced 60 mm Martinez stenotic gradient Left renal artery is known to be ostially occluded IMPRESSION Successful drug-eluting stenting of the proximal right renal artery followed by bare-metal stent deployment of the ostial segment producing excellent angiographic results with wide patency of the right renal artery PLAN 1. Aspirin 81 mg daily plus Plavix 75 mg daily 2. Recommend renal duplex now prior to discharge home and then recommend renal duplex in 6 weeks and 12 weeks. Given patient has a solitary renal artery monitoring the patency of the renal artery stents is imperative 3. Aggressive risk factor modification 4. Chest pain likely stems from poorly controlled hypertension 5. LDL less than 55 to be achieved with high intensity statin Electronically signed by : Jordan Carver MD 05/05/2023 12:42:28
--- NOTE | 2023-05-05 08:15 | EXP.CARD.CON ---
History of Present Illness History of Present Illness Consult date: 05/05/23 Requesting physician: Julien Beth Consult reason: chest pain and hypertension Chief complaint: CP, HTN Additional Medical History:: 1. CAD A. CABG, 2005 B. [place], about 2019, subsequent LHC with loss of SVG per patient. No stenting. C. LHC with grafts, 09/11/2021, L Main with ostial 30% stenosis, LAD with prox 50% stenosis then occluded after large septal legal records clerk and large first diagonal (prox 60% stenosis), small Cx with prox 80% stenosis, nondominant RCA occluded at mid vessel. GUZMAN patent to LAD, SVG patent to Cx, SVG to RCA occluded. Left renal artery stent ostially occluded. KATHRYN placed to right renal artery ostial segment. D. MUGA scan, 09/12/2021, EF 63.5%. E. Uzair myoview, 12/16/2022, large size, moderate, fixed perfusion defect in the inferior LV wall from the base and extending distally towards the apex. EF 49% with mod- severe hypokinesis in the inferior LV wall 2. DM, treated for 20 yrs A. Hemoglobin A1c is 6.4 on 05/04/2023 3. s/p MAHIN endarterectomy A. Carotid ultrasound, 12/2022, less than 50% stenosis bilaterally B. 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 HTN A. Echocardiogram, 12/13/2022, EF 55-60%. Diastolic function normal. Unable to calculate RVSP. No significant valve disease. 5. HLD A. On statin therapy 6. Fatty liver A. Normal LFTs on 02/16/2023 7. Esophageal stricture with prior stretching 8. Chronic RBBB on EKG 9. CKD, stage 2-3, A. Cr 2.0 with GFR 34 on 05/05/[address] Dona Acosta. Renal angiogram, 09/2021, left renal artery occluded. KATHRYN to right renal artery. 10. DANY, CPAP use 11. History of COVID infection, 06/2021 History of present illness: 67 year old male presented to the ED for c/o CP that radiates to his left arm. PMHX of CAD, DM, hypothyroid, HTN, and HLD. The patient states his CP started at 330 while watching TV. The ED work up revealed unremarkable lab values interpreted by me, 1st troponin negative, EKG reviewed by me and reveals RBBB, and chest xray and chest CTA reviewed by me and reveals no abnormalities. The ED physician consulted Cardiology who recommended admission for serial troponins. The ED physician consulted hospitalist. I admitted the pt to the medical floor under med surg with telemetry overnight. I will continue to trend his troponins, treat his chronic DM, and I ordered repeat CBC and BMP for the morning. He arrives to the medical floor without c/o CP, nausea, vomiting, or diarrhea. If chest pain develops overnight I will repeat his EKG. I placed a cardiology consult for the morning. The above per NISHI Doan for the Hospitalist service. Events as noted above confirmed with the patient. He also relates that blood pressure has been labile over the last couple of months with some intermittent chest pain that he cannot completely correlate with the labile blood pressure. He has been seeing both nephrology and urology for chronic kidney disease. Recently diagnosed with a yeast infection for which she was treated. He is scheduled for a CT scan of his kidneys today. Troponins overnight have returned normal. EKG is sinus with right axis deviation, left posterior fascicular and right bundle branch block which is chronic. Discussed case with Dr. Carver and recommend proceeding with renal angiogram to evaluate renal artery stenting from last year. If there is no significant stenosis then would recommend proceeding with left heart catheterization with grafts to evaluate patient's chest pain. Risk, benefits and procedure explained to the patient he agrees to proceed. [facility] Disclaimer: The information contained in this section may have been updated after the patient was seen, as this information can be updated by other users. Medical History Angina pectoris Carotid artery stenosis Right ICA endarterectomy C
--- NOTE | 2023-05-05 08:35 | HMH.PHAINT1 ---
Pharmacy Intervention Comments: home medication list verified using list from outpatient pharmacy and pt interview
[2023-05-05 09:52] LABS: POC Glucose,Bedside 117 (70-110)
[2023-05-05 13:43] LABS: CATHL Activated Clotting Time 356 SEC (74-125)
--- NOTE | 2023-05-05 14:17 | EXP.ACUTE.PN ---
Subjective *Date: 05/05/23 *Time: 15:11 Interval history: Patient feeling chest pain-free this morning. Denies any shortness of breath. No nausea or vomiting on morning rounds. Patient taken for renal artery angiogram with stent placement. After returning back to the floor, having some hypotension and nausea and vomiting. Family member at bedside, updated of plan. Medical Exam Vital signs and Labs for Last 24 Hours: Vital Signs Temp Pulse Pulse Resp BP BP Pulse Ox 05/05/23 13:30 66 18 125/55 L 93 L 05/05/23 13:15 62 18 95/35 L 96 05/05/23 13:00 66 18 115/62 92 L 05/05/23 12:55 66 17 164/86 H 94 L 05/05/23 12:50 66 18 163/87 H 95 05/05/23 12:45 66 65 18 166/91 H 95 05/05/23 12:39 200/86 H 05/05/23 08:00 60 05/05/23 08:00 98 05/05/23 08:00 97.5 F L 72 18 170/78 H 97 05/05/23 08:08 05/05/23 06:39 05/05/23 04:00 98.3 F 65 17 202/89 H 98 05/05/23 05:00 05/05/23 05:33 70 158/73 H 05/05/23 02:53 05/05/23 01:00 05/05/23 00:00 70 05/05/23 00:00 97.8 F 74 17 181/92 H 94 L 05/04/23 23:00 05/04/23 21:20 98 05/04/23 21:40 97.8 F 69 17 169/78 H 98 05/04/23 21:10 78 05/04/23 21:10 98.1 F 69 16 144/63 H 05/04/23 20:31 69 15 179/83 H 96 05/04/23 19:00 77 21 174/70 H 99 05/04/23 18:31 72 17 161/73 H 97 05/04/23 18:19 98.1 F 78 16 178/86 H 98 O2 Del Method 05/05/23 13:30 Room Air 05/05/23 13:15 Room Air 05/05/23 13:00 Room Air 05/05/23 12:55 05/05/23 12:50 Room Air 05/05/23 12:45 05/05/23 12:39 05/05/23 08:00 05/05/23 08:00 Room Air 05/05/23 08:00 Room Air 05/05/23 08:08 Room Air 05/05/23 06:39 Room Air 05/05/23 04:00 Room Air 05/05/23 05:00 Room Air 05/05/23 05:33 05/05/23 02:53 Room Air 05/05/23 01:00 Room Air 05/05/23 00:00 05/05/23 00:00 Room Air 05/04/23 23:00 Room Air 05/04/23 21:20 Room Air 05/04/23 21:40 Room Air 05/04/23 21:10 05/04/23 21:10 05/04/23 20:31 05/04/23 19:00 05/04/23 18:31 05/04/23 18:19 Intake and Output 05/04/23 05/05/23 05/05/23 23:59 07:59 15:59 Intake Total 440 / 440 Output Total 0 / 0 0 / 0 Balance 0 / 440 440 / 440 Intake: Intake, Oral Amount 440 / 440 Output: Output, Urine Amount 0 / 0 0 / 0 Other: Number of Unmeasured Voids 1 1 Weight 136.078 kg 136.078 kg Patient Weight 05/05/23 23:59 Weight 136.078 kg Laboratory Results - last 24 hr 05/04/23 18:15: WBC 6.4, RBC 4.17 L, Hgb 12.9 L, Hct 38.4 L, MCV 92.0, MCH 31.0, MCHC 33.7, RDW 16.6, Plt Count 171, MPV 9.0, Neut % (Auto) 68.2, Lymph % (Auto) 23.4, [place] % (Auto) 6.0, Eos % (Auto) 1.8, Baso % (Auto) 0.6, Neut # (Auto) 4.3, Lymph # (Auto) 1.5, [place] # (Auto) 0.4, Eos # (Auto) 0.1, Baso # (Auto) 0.0, Sodium 139, Potassium 4.4, Chloride 103, Carbon Dioxide 28, Anion Gap 12.4, BUN 17, Creatinine 1.90 H, Estimated Creat Clear 75, Estimated GFR 36 L, Est GFR ( Amer) 43 L, Glucose 209 H, Hemoglobin A1c 6.4 H, Calcium 8.8, Troponin I < 0.01, TSH 1.71 05/04/23 21:18: Troponin I < 0.01 05/04/23 21:35: POC Glucose 76 05/05/23 00:31: Troponin I < 0.01 05/05/23 05:02: POC Glucose 82 05/05/23 05:44: WBC 6.7, RBC 4.30 L, Hgb 13.4 L, Hct 40.4 L, MCV 93.9, MCH 31.2, MCHC 33.2, RDW 16.8, Plt Count 170, MPV 8.3, Neut % (Auto) 69.0, Lymph % (Auto) 22.0, [place] % (Auto) 6.4, Eos % (Auto) 2.1, Baso % (Auto) 0.6, Neut # (Auto) 4.7, Lymph # (Auto) 1.5, [place] # (Auto) 0.4, Eos # (Auto) 0.1, Baso # (Auto) 0.0, Sodium 139, Potassium 4.3, Chloride 103, Carbon Dioxide 29, Anion Gap 11.3, BUN 16, Creatinine 2.00 H, Estimated Creat Clear 71, Estimated GFR 34 L, Est GFR ( Amer) 41 L, Glucose 79 D, Calcium 8.9 05/05/23 09:45: POC Glucose 117 H 05/05/23 12:16: Activated Clotting Time 356 H* I & O for Labs for Last 24 Hours: Intake & Output 05/02/23 05/03/23
[2023-05-05 14:31] LABS: POC Glucose,Bedside 219 (70-110)
--- NOTE | 2023-05-05 15:13 | PC.NURSE ---
Emesis times one. NS bolus 500ml at 500ml per hour per verbal dr. Beth.
--- NOTE | 2023-05-05 16:30 | PC.NURSE ---
Vaibhav Cabrera called at 16:30 and patient was unresponsive but never lost his pulse. Kirit at beside and CT was obtained which identified a bleed. Pt. was then transfused blood and transfer to [facility].
--- NOTE | 2023-05-05 16:45 | ECG_ITS ---
APPROVED REPORT Exam: Resting ECG HR:84 bpm ECG Measurements Heart Rate 84 AXES NJ 238 P 17 QRSd 136 QRS 80 QT 399 T 15 QTc 439 Conclusion SINUS RHYTHM WITH FIRST DEGREE AV BLOCK INDETERMINATE AXIS RIGHT BUNDLE BRANCH BLOCK [120+ ms QRS DURATION, UPRIGHT V1, 40+ ms S IN I/aVL/V4/V5/V6] SEPTAL MYOCARDIAL INFARCTION , PROBABLY OLD [40+ ms Q WAVE IN V1/V2] ABNORMAL ECG UNCONFIRMED REPORT Electronically signed by : Estrada Gar MD 05/05/2023 20:16:29
[2023-05-05 17:00] LABS: Chloride 105 mmol/L (98-107)
--- NOTE | 2023-05-05 17:00 | CT_ITS ---
PROCEDURE INFORMATION: Exam: CT Abdomen And Pelvis Without Contrast Exam date and time: 05/05/2023 5:13 PM Age: 67 years old Clinical indication: Nausea and vomiting; Additional info: Md order TECHNIQUE: Imaging protocol: Computed tomography of the abdomen and pelvis without contrast. Radiation optimization: All CT scans at this facility use at least one of these dose optimization techniques: automated exposure control; mA and/or kV adjustment per patient size (includes targeted exams where dose is matched to clinical indication); or iterative reconstruction. REPORTING DATA: Count of CT and Cardiac NM exams in prior 12 months: This patient has received [address] and 0 known cardiac nuclear medicine studies in the 12 months prior to the current study. COMPARISON: CT ABDOMEN PELVIS WO CON 01/24/2022 3:47 PM FINDINGS: Lungs: Nonspecific bibasilar streaky opacities suggest atelectasis or parenchymal scarring. Pleural spaces: There are no pleural effusions. Heart: The heart is borderline enlarged. There is no evidence of pericardial fluid collections. Coronary arteries: There is severe atherosclerotic calcification of the coronary arteries. Liver: Evaluation of the liver is limited without contrast but the liver is within normal limits for this noncontrast study. Gallbladder and bile ducts: As before, surgical clip is present within the gallbladder fossa which may reflect cholecystectomy. Previously described calcifications in the gallbladder fossa may reflect stones within the cystic duct remnant or other soft tissue calcification. Pancreas: Noncontrast images of the pancreas are within range of normal. Spleen: The spleen is normal. Adrenal glands: There is a focal hypodense nodule measuring 2.7 x 2.6 cm in the left adrenal gland, consistent in appearance with a benign adrenal adenoma. Internal Hounsfield units measure -1 suggestive of fat density. The right adrenal gland appears normal. Kidneys and ureters: There is large amount of perinephric mixed attenuation fluid consistent with blood of different ages. There is mass effect upon the right kidney with medial a anterior displacement due to the large hematoma. Hematoma extends into the lower abdomen. The most consolidated hematoma measures approximately 13.4 x 4.7 x 14 cm. There are additional strandy areas of hematoma also present more peripherally. The hematoma in its entirety including both these areas measures approximately 19 x 13.8 x 26 cm There is a 18 mm hyperdensity involving the posterior left kidney which is not optimally characterized on current exam but may reflect hyperdense cyst. There is also a 20 mm hyperdensity involving the anterior right kidney which is not optimally characterized on current exam but may reflect hyperdense cyst. There is mass effect upon the right kidney by the perinephric hematoma which is displaced anteriorly and medially. There are areas of cortical scarring bilaterally. Areas of renal enhancement are consistent with the provided history of renal angiogram and bilateral stent placement. There are areas of decreased/absent enhancement involving portions of the left kidney with relative sparing of superior and inferior regions. This may be on the basis of known left renal artery occlusion. Evaluation is limited and clinical correlation is required. Stomach and bowel: The stomach is normal. The duodenum is unremarkable. Lack of gastrointestinal contrast limits evaluation of bowel. There is mildly excessive colonic stool content. Unopacified loops of small bowel within range of normal. Appendix: No evidence of appendicitis. Intraperitoneal space: No evidence of intraperitoneal free air. Vasculature: The aorta and iliac
[2023-05-05 17:01] LABS: Basophils % 0.1 % (0.1-2.0); Eosinophils # 0.1 K/mm3 (0.0-0.4); Eosinophils % 0.7 % (0.1-12.0); Hematocrit 30.4 % (42.0-52.0); Lymphocytes # 2.6 K/mm3 (0.7-4.5); Lymphocytes % 18.9 % (10-50); Mean Corpuscular Hemoglobin 31.5 pg (27.0-31.2); Mean Corpuscular Volume 92.4 fl (80-94); Mean Platelet Volume 8.7 fl (7.4-10.4); Monocytes # 0.5 K/mm3 (0.1-1.0); Monocytes % 3.6 % (1.7-9.3); Neutrophils # 10.4 K/mm3 (1.8-7.8); Neutrophils % 76.7 % (37.0-80.0); Platelet Count 288 K/mm3 (142-424); Potassium 5.5 mmoL/L (3.5-5.1); Red Blood Count 3.29 M/mm3 (4.60-6.20); Red Cell Distribution Width 16.9 % (11.5-17.5); Sodium 134 mmol/L (136-145); White Blood Count 13.5 K/mm3 (4.8-10.8)
[2023-05-05 17:03] LABS: Alanine Aminotransferase 26 U/L (12-78); Albumin Level 3.3 g/dl (3.5-5.0); Albumin/Globulin Ratio 1.4 (1.1-1.8); Alkaline Phosphatase 52 U/L (38-126); Anion Gap 11.5 mEq/L (5-15); Aspartate Amino Transferase 43 U/L (17-59); Bilirubin,Total 1.8 mg/dl (0.2-1.3); Blood Urea Nitrogen 18 mg/dl (9-20); Carbon Dioxide 23 mmol/L (22.0-30.0); Creatinine Clearance Estimated 67 mL/min (50-200); Estimated Glomerular Filt Rate 32 ml/min (>60); GFR (African American) 39 ML/MIN (>60); Globulin 2.4 g/dL (1.3-3.2); Total Protein,Serum 5.7 g/dl (6.3-8.2)
[2023-05-05 17:04] LABS: Calcium 7.6 mg/dl (8.4-10.2); Glucose 289 mg/dl (74-100)
--- NOTE | 2023-05-05 17:10 | PC.NURSE ---
Addendum entered by Prudencio Menon RN 05/05/23 19:13: 1 mg epi given at 4:38, bolus of NS at 4:33, norepi given at 16:36, levo 16 mcg 4:39, second epi given at 4:41, levo increased to 20 mcg at 4:47, Dr. Carver called at 4:53, RIGHT groin holding pressure at 4:54, third dose of epi given at 4:57, levo increased to 30mcg at 5:00, pt. down to CT at 5:05, 4th epi given at 5:11. Original Note: 16:[address] Beth about pt's blood pressure of 89/43 P: 75 lying flat. Sat him up and bp was 75/44: P:66 and asked to get a manual. assistant producer went to get the manual on the patient and he went unconscious for a few seconds and called a code. Charge nurse and several other nurses responded along with Dr. Beth. EKG, LABS, NEW ORDERS PLACED ALONG WITH A BOLUS OF FLUID, TYPE AND CROSS ORDERED along with several other orders.
[2023-05-05 17:11] LABS: Hemoglobin 10.1 g/dL (14.1-18.0)
--- NOTE | 2023-05-05 17:11 | PC.NURSE ---
While in CT Dr. Beth stated to call lab for mass transfusion (4 units). Lab called.
--- NOTE | 2023-05-05 17:30 | PC.NURSE ---
Addendum entered by Yanelis Graham RN 05/05/23 18:26: temp 96.8 rectal, janis paws placed on pt Original Note: pt back from ct scan, pt admitted to 217 (prior room 207), pt getting 4units PRBC mass transfused, pt on levophed drip at 30mcg/min, 2 NS boluses have been completed, one LR bolus completed, MD Beth at bedside speaking with family, trying to get pt transferred to at this time
--- NOTE | 2023-05-05 17:41 | PC.NURSE ---
1739- 1st unit of blood started [id number] O+ verified with William Holloway, RN, Enrique Cornejo RN BP-102/60, HR-85, R-25 O2-100% 6LNC 1741-Dr. Beth speaking with at this time.
--- NOTE | 2023-05-05 17:50 | PC.NURSE ---
first unit PRBC complete, VS 105/52, HR 79, RR 16, 100% 6LNC
--- NOTE | 2023-05-05 17:53 | PC.NURSE ---
Addendum entered by Yanelis Graham RN 05/05/23 17:55: verified with TONIO Hanson Original Note: second unit PRBC started, O+, unit number [id number], VS 86/47, HR 82, RR 25, 100% 6LNC
--- NOTE | 2023-05-05 17:55 | PC.NURSE ---
pt now has 20G left AC, 20G Right AC, 18G Right AC
--- NOTE | 2023-05-05 17:58 | EXP.DC.SUM ---
General Admission date:: 05/04/23 Discharge date: 05/05/23 HPI HPI HPI: 67 year old male presented to the ED for c/o CP that radiates to his left arm. PMHX of CAD, DM, hypothyroid, HTN, and HLD. The patient states his CP started at 330 while watching TV. The ED work up revealed unremarkable lab values interpreted by me, 1st troponin negative, EKG reviewed by me and reveals RBBB, and chest xray and chest CTA reviewed by me and reveals no abnormalities. The ED physician consulted Cardiology who recommended admission for serial troponins. The ED physician consulted hospitalist. I admitted the pt to the medical floor under med surg with telemetry overnight. I will continue to trend his troponins, treat his chronic DM, and I ordered repeat CBC and BMP for the morning. He arrives to the medical floor without c/o CP, nausea, vomiting, or diarrhea. If chest pain develops overnight I will repeat his EKG. I placed a cardiology consult for the morning. Hospital Course Hospital Course Hospital Course: 67 year old male presented to the ED for c/o CP that radiates to his left arm. PMHX of CAD, DM, hypothyroid, HTN, and HLD. The patient states his CP started at 330 while watching TV. The ED work up revealed unremarkable lab values interpreted by me, 1st troponin negative, EKG reviewed by me and reveals RBBB, and chest xray and chest CTA reviewed by me and reveals no abnormalities. The ED physician consulted Cardiology who recommended admission for serial troponins. The ED physician consulted hospitalist. Medicine admitted for telemetry overnight and serial troponins. Troponin remained negative. Was seen by cardiology, taken to [facility] for intervention. Subsequently developed hypotension over the following 4 to 6 hours. Rapid response was called, as blood pressure was stabilized patient was taken for CT of the abdomen which showed significant extravasation with collection of approximately 20 x 20 cm around the right kidney. Concern for renal artery perforation and extravasation. [facility] consulted for transfer as patient will likely need nephrology given this is his solitary kidney that functions as well as interventional radiology to assist with his current acute issue. Graciously excepted. Patient transferred to higher level of care. Problems addressed as follows during admission: ANGINA Hypertension Renal artery stenosis -Blood pressure very labile. Cardiology was consulted and they recommended renal angiogram before proceeding with left heart cath. Taken to procedure with successful stenting of proximal right renal artery. Good patency achieved. Was continued on aspirin and Plavix. After patient was brought to the floor, he developed nausea at approximately 1 PM. Blood pressures decreased with systolics between 100-120. His systolic continued to decrease and shortly after 4:00 a rapid response was called because of hypotension and patient syncopized in. Patient persisted to have a pulse however he was somnolent and difficult to arouse. Was initiated on crystalloid with normal saline. Received 2 L normal saline and two 1 mg pushes of epinephrine. Blood pressure improved and was started on norepinephrine drip. Maxed at [address] of abdomen obtained showing large perinephric hematoma. Concern for active extravasation from right renal artery. Patient was typed and crossed for 4 units. Transfused 3 units prior to transfer. Hemoglobin had dropped in 6 hours by at least 3 points. Given hypotension, active extravasation/bleed around kidney transfusion deemed necessary. was contacted for transfer due to concern for compression of solitary functional kidney, need for IR for possible intervention and need to transfer to higher level of care. Graciously excepted to MICU for further management. Patient has developed increased oxygen requirement during treatment, currently satting 100% on 6 L. No crackles on exam prior to discharge. No active bruisin
--- NOTE | 2023-05-05 18:07 | PC.NURSE ---
Addendum entered by Yanelis Graham RN 05/05/23 18:18: verified with TONIO Hanson Addendum entered by Yanelis Graham RN 05/05/23 18:12: [id number] Original Note: third unit PRBC started, VSS 105/50, HR 77, 100% 6LNC, RR 18, O+, [id number]
[2023-05-05 18:08] LABS: POC Glucose,Bedside 303 (70-110)
--- NOTE | 2023-05-05 18:10 | PC.NURSE ---
attempted to call report to [facility], callback number given as nurse couldn't take report at this time
--- NOTE | 2023-05-05 18:13 | PC.NURSE ---
second unit blood complete, bp 114/45, HR 75, RR 23, 100% 6LNC
--- NOTE | 2023-05-05 18:17 | PC.NURSE ---
fourth unit PRBC started, O+, [id number], verified with TONIO Hanson; bp 92/52, 77 HR, RR 16, 100% 6LNC
--- NOTE | 2023-05-05 18:18 | PC.NURSE ---
third unit PRBC complete, BP 89/43, HR 77, 100% 6LNC, RR 18
--- NOTE | 2023-05-05 18:18 | PC.NURSE ---
bp 106/47, HR 80, RR 16, 100% 6LNC
--- NOTE | 2023-05-05 18:19 | INFXCTL.NOTE ---
third unit PRBC complete, bp 106/47, HR 80, 100% 6LNC, RR 16
--- NOTE | 2023-05-05 18:24 | PC.NURSE ---
called report to TONIO Edwards at [facility], pt to go to MICU 9th floor room 240
--- NOTE | 2023-05-05 18:52 | PC.NURSE ---
pt leaving via stretcher with air methods on levophed drip at 30, bp 87/47, HR 81, RR 20, 100% 6LNC
--- NOTE | 2023-05-05 22:18 | EXP.CCNOTE ---
Critical Care Event Note Summary Code activated: Yes Narrative: This case had a high probability of a clinically significant, sudden, or life threatening deterioration of this patient's condition which required my full and direct attention, intervention and personal management. Patient decompensated and rapid response was called. Patient became hypotensive necessitating aggressive intervention. Was initiated on IV fluids while he was evaluated. Blood pressure remained low with systolics less than 80s maps less than 60s. Was given 1 mg of epinephrine with temporary improvement in color and blood pressure, however patient proceeded to have persistent hypotension without loss of consciousness or pulse, second milligram of epinephrine was given. Second liter of normal saline was hung and patient was started on norepinephrine drip. Nursing able to obtain second peripheral IV. On exam, patient tender in his right flank and abdomen. Given intervention earlier today, decision made to obtain CT of patient's abdomen as soon as he was stable. Labs were obtained showing hemoglobin drop from 13-10. Concern for retroperitoneal bleed or other intra-abdominal hemorrhage. Patient taken to CT, identified large perinephric hematoma. Patient brought back to floor where third liter of crystalloid was administered while blood was crossmatched. Is ultimately given 3 units of packed red blood cells due to his continued hemodynamic instability and persistent bleeding intra-abdominal leak. Transfer was initiated, is excepted to MICU at . Patient flown to higher level of care. Vasopressin initiated just prior to transfer. Critical care time: 30 - 74 mins [facility] Critical Care Exam Physical Exam Vital signs: Temp Pulse Resp BP Pulse Ox O2 Del Method O2 Flow Rate 97.6 F 76 18 111/53 L 100 Nasal Cannula 6 05/05/23 14:30 05/05/23 18:25 05/05/23 18:25 05/05/23 18:25 05/05/23 18:25 05/05/23 18:25 05/05/23 18:25 Constitutional Constitutional: Present moderate distress, morbidly obese and somnolent Routine HEENT Exam Head: Present normocephalic and atraumatic Eye: Present PERRL ENT: Present mucous membranes dry Routine Respiratory Exam Respiratory: Present CTA bilaterally; Absent accessory muscle use, rhonchi or crackles Routine Cardiovascular Exam Cardiovascular: Present RRR Routine Abdominal Exam Abdominal: Present soft, tenderness and distended (right flank, no bruising); Absent rebound Routine Extremities Exam Extremities: Absent cyanosis or edema Comments: pallor, weak pulses in feet, palpable femoral pulses Routine Skin Exam Skin: Present intact and pallor Routine Neurological Exam Neurological: Present alert, altered mental status and moving all extremities Comments: GCS 14
== END 2023-05-05 19:03 | disposition short-term general hospital (02) ==
LOC: ER 20:50 → 2ND 20:53
PROVIDERS: Internal Medicine; Nurse Practitioner Critical Care Medicine; Admitting Provider Internal Medicine Adolescent Medicine; Emergency Provider Emergency Medicine; PCP Physician Assistant; Visit Provider Internal Medicine Adolescent Medicine
DX: N18.32 Chronic kidney disease, stage 3b; E11.22 Type 2 diabetes mellitus with diabetic chronic kidney disease; E78.5 Hyperlipidemia, unspecified; I13.0 Hypertensive heart and chronic kidney disease with heart failure and stage 1 through stage 4 chronic kidney disease, or unspecified chronic kidney disease; E03.9 Hypothyroidism, unspecified; E66.9 Obesity, unspecified; I25.110 Atherosclerotic heart disease of native coronary artery with unstable angina pectoris; E66.01 Morbid (severe) obesity due to excess calories; N39.0 Urinary tract infection, site not specified; I65.23 Occlusion and stenosis of bilateral carotid arteries; Z95.1 Presence of aortocoronary bypass graft; I70.1 Atherosclerosis of renal artery; I15.0 Renovascular hypertension
CPT/HCPCS: 36415; 36430; 37236; 71045; 71275; 74176; 80048; 80053; 82962; 83036; 84443; 84484; 85025; 85347; 86850; 93005; 99152; 99153; 99285; C1725; C1760; C1769; C1876; C1887; C1894; G0378; J1644; J2405; P9016; Q9967

== ENCOUNTER 2023-10-14 10:38 | Outpatient (POV) | payer MEDICARE, SELFPAY | END 2023-10-14 23:59 | disposition home or self-care (01) | LOC: SC 10:38 | PROVIDERS: Visit Provider Dermatology | DX: Z00.00 Encounter for general adult medical examination without abnormal findings (principal) ==

== ENCOUNTER 2024-03-12 09:50 | Outpatient (CLI) | payer MEDICARE, SELFPAY ==
[2024-03-12 18:05] LABS: Basophils % 0.6 % (0.1-2.0); Eosinophils # 0.1 K/mm3 (0.0-0.4); Eosinophils % 2.2 % (0.1-12.0); Hematocrit 31.6 % (42.0-52.0); Hemoglobin 9.8 g/dL (14.1-18.0); Lymphocytes % 18.3 % (10-50); Mean Corpuscular Hemoglobin 29.3 pg (27.0-31.2); Mean Corpuscular Volume 94.4 fl (80-94); Mean Platelet Volume 8.5 fl (7.4-10.4); Monocytes # 0.3 K/mm3 (0.1-1.0); Monocytes % 5.3 % (1.7-9.3); Neutrophils % 73.6 % (37.0-80.0); Platelet Count 234 K/mm3 (142-424); Red Blood Count 3.35 M/mm3 (4.60-6.20); Red Cell Distribution Width 18.2 % (11.5-17.5); White Blood Count 5.4 K/mm3 (4.8-10.8)
[2024-03-12 18:22] LABS: Chloride 108 mmol/L (98-107); Potassium 4.9 mmoL/L (3.5-5.1); Sodium 138 mmol/L (136-145)
[2024-03-12 18:24] LABS: Blood Urea Nitrogen 24 mg/dl (9-20); Estimated Glomerular Filt Rate 43 ml/min (>60); GFR (African American) 53 ML/MIN (>60)
[2024-03-12 18:25] LABS: Alanine Aminotransferase 13 U/L (12-78); Albumin/Globulin Ratio 0.9 (1.1-1.8); Alkaline Phosphatase 96 U/L (38-126); Anion Gap 8.9 mEq/L (5-15); Aspartate Amino Transferase 25 U/L (17-59); Calcium 8.7 mg/dl (8.4-10.2); Carbon Dioxide 26 mmol/L (22.0-30.0); Cholesterol 103 mg/dl (140-200); Globulin 3.3 g/dL (1.3-3.2); Glucose 132 mg/dl (74-100); Total Protein,Serum 6.3 g/dl (6.3-8.2); Triglycerides 85 mg/dl (30-150); VLDL Cholesterol 17 mg/dL (0-40)
[2024-03-12 18:26] LABS: HDL Cholesterol 26 mg/dl (40-60)
[2024-03-12 18:30] LABS: Hemoglobin A1C 4.4 % (4.0-6.0)
[2024-03-12 18:37] LABS: Direct LDL Cholesterol 51.64 mg/dL (100-129)
== END 2024-03-12 23:59 | disposition home or self-care (01) ==
LOC: LAB.DROPOF 03-15 09:50
PROVIDERS: PCP Family Medicine; Visit Provider Family Medicine
DX: I10 Essential (primary) hypertension (principal); E11.9 Type 2 diabetes mellitus without complications; R79.89 Other specified abnormal findings of blood chemistry; E83.42 Hypomagnesemia
CPT/HCPCS: 80053; 80061; 83036; 85025

== ENCOUNTER 2024-04-22 11:26 | Outpatient (CLI) | payer MEDICARE, SELFPAY ==
[2024-04-22 11:32] LABS: Microscopic, Urine URINE MICROSCOPIC (MICROSCOPIC)
[2024-04-22 11:55] LABS: Appearance,Urine CLEAR (Clear); Bilirubin,Urine Negative (Negative); Blood, Urine Negative (Negative); Color,Urine YELLOW (Yellow); Glucose,Urine (UA) Negative (Negative); Ketones,Urine Negative (Negative); Leukocyte Esterase,Urine Negative (Negative); Nitrate,Urine Negative (Negative); Protein,Urine Negative (Negative); Urobilinogen,Urine 0.2 EU/dl (0.2)
[2024-04-22 12:07] LABS: Bacteria,Urine Trace /lpf; WBC,Urine Occasional #/hpf (0-3)
== END 2024-04-22 23:59 | disposition home or self-care (01) ==
LOC: LAB 11:27
PROVIDERS: PCP Internal Medicine; Visit Provider Internal Medicine
DX: R82.90 Unspecified abnormal findings in urine (principal); R30.0 Dysuria
CPT/HCPCS: 81001; 87086; 87088; 87186

== ENCOUNTER 2024-06-12 13:12 | Emergency (ER) | payer MEDICARE, SELFPAY ==
[2024-06-12] VITALS (23 sets, daily range): BP systolic 89–133; BP diastolic 44–75; PULSE 70–83; RESP 16–19; TEMP 36.4–36.7; O2SAT 92–100; BMI 33.9
--- NOTE | 2024-06-12 13:24 | XR_ITS ---
PROCEDURE INFORMATION: Exam: XR Left Knee Exam date and time: 06/12/2024 1:42 PM Age: 68 years old Clinical indication: Injury or trauma; Fall; Blunt trauma; Knee; Left; Additional info: Fall x few weeks ago TECHNIQUE: Imaging protocol: Radiologic exam of the left knee. Views: 3 views. COMPARISON: No relevant prior studies available. FINDINGS: Bones/joints: Mild Tricompartmental joint space narrowing and osteophyte formation consistent with degenerative changes. There is no evidence of acute fracture.There is no evidence of malalignment or dislocation. Soft tissues: Normal. IMPRESSION: 1. Mild Tricompartmental joint space narrowing and osteophyte formation consistent with degenerative changes. 2. There is no evidence of acute fracture.There is no evidence of malalignment or dislocation.
--- NOTE | 2024-06-12 13:30 | ED_ITS ---
Discharge Plan Disposition Patient Disposition: Xfer Other Chief Complaint: PAIN Prescriptions Prescriptions: No Action amoxicillin-pot clavulanate 875-125 mg tablet 1 tab PO BID apixaban 5 mg tablet 5 mg PO BID 90 Days Qty: 180 2RF atorvastatin 80 mg tablet 80 mg PO DAILY Qty: 90 1RF carvedilol [Coreg] 12.5 mg tablet 12.5 mg PO BID 90 Days Qty: 180 1RF Rx Instructions: must administer with a meal/food clopidogrel [Plavix] 75 mg tablet 75 mg PO DAILY Qty: 90 1RF levothyroxine 75 mcg tablet 75 mcg PO DAILY Qty: 90 1RF Rx Instructions: 0700 lisinopril 2.5 mg tablet 2.5 mg PO DAILY Qty: 90 1RF omeprazole 40 mg capsule,delayed release(DR/EC) 40 mg PO DAILY Qty: 90 1RF Rx Instructions: 0900 doxycycline hyclate 100 mg tablet 100 mg PO BID Qty: 30 0RF Rx Instructions: bid until 04/03/24 doxazosin 4 mg tablet 4 mg PO DAILY Qty: 90 1RF trazodone 150 mg tablet 150 mg PO HS PRN (Reason: sleep) Qty: 90 0RF ciprofloxacin HCl [Cipro] 250 mg tablet 250 mg PO BID 14 Days Qty: 28 0RF duloxetine 20 mg capsule,delayed release(DR/EC) 20 mg PO DAILY 30 Days Qty: 30 2RF gabapentin 100 mg capsule 100 mg PO TID Qty: 90 2RF metformin 500 mg tablet 500 mg PO BID Qty: 60 2RF hydrocodone-acetaminophen 5-325 mg tablet 1 tab PO Q6H PRN (Reason: pain) Qty: 60 0RF Referrals Follow up/Referrals: Addison Rizzo DO [Primary Care Provider] - See instructions Clinical Impressions Clinical Impression: Effusion of knee joint, left, Septic arthritis of knee, left Print Language Print Language: Turkmen Discharge ED Provider: Ignacia Matthews General Adult HPI <Ludivina Balderas (ED), GRINDER HARDBOARD - Last Filed: 06/12/24 20:41> General Chief complaint: PAIN Stated complaint: AO 06/05 fall, left knee pain Time Seen by Provider: 06/12/24 13:30 Mode of Arrival: Wheelchair Source of Information: Patient Limitations: No Limitations Description of Symptoms (Recalled from ER Triage Doc. by RN): pt presents to ED with c/o left knee pain and swelling. pt reports that he had a fall two weeks ago, no pain noticed after the fall. a few days after the fall, the pt reports that pain began. History of Present Illness HPI narrative: This is a 68-year-old male who presents to the ED today for a fall that happened 2 weeks ago. He states that initially he had no pain in his knee but a few days later noticed that his left knee was swelling and very painful. Most of his pain is anterior medial of the knee. He has swelling and pain with bending and moving. He does have a lift chair and it hurts to even come out of that chair. He has been taking Sulphur 5 mg at home and this is not helping with the pain. He is currently being treated for a wound on his left foot with IV antibiotics through PICC line. He states that that is getting better and he just was released to walk and now he is unable to walk due to the knee pain. He does have history of lung collapse, stroke during a heart cath. This happened last year. His states that he is on 2 blood thinners after he coded and went to last year. Related Data Home Medications ?Medication ?Instructions ?Recorded ?Confirmed amoxicillin 875 mg-potassium 1 tab PO BID 03/12/24 05/17/24 clavulanate 125 mg tablet Previous Rx's ?Medication ?Instructions ?Recorded doxycycline hyclate 100 mg tablet 100 mg PO BID #30 tabs 02/09/24 apixaban 5 mg tablet 5 mg PO BID 3 months #180 tabs 03/12/24 atorvastatin 80 mg tablet 80 mg PO DAILY #90 tabs 03/12/24 carvedilol 12.5 mg tablet (Coreg) 12.5 mg PO BID 3 months #180 tabs 03/12/24 clopidogrel 75 mg tablet (Plavix) 75 mg PO DAILY #90 tabs 03/12/24 levothyroxine 75 mcg tablet 75 mcg PO DAILY hypothyroidism #90 03/12/24 tabs lisinopril 2.5 mg tablet 2.5 mg PO DAILY #90 tabs 03/12/24 omeprazole 40 mg capsule,delayed 40 mg PO DAILY acid reflux #90 caps 03/12/24 release doxazosin 4 mg tablet 4 mg PO DAILY #90 tabs 03/17/24 trazodone 150 mg tablet 150 mg PO HS PRN sleep #90 tabs 04/13/24 ciprofloxacin HCl 250 mg tablet 250 mg PO BID 14 days #28 tabs 04/26/24 (Cipro) duloxetine 20 mg capsule,delayed 20 mg PO DAILY 30 days #30 caps 05/04/24 release gabapentin 100 mg capsule 100 mg PO TID #90 caps 05/04/24 metformin 500 mg tablet 500 mg PO BID #60 tabs 05/06/24 hydrocodone 5 mg-acetaminophen 325 1 tab PO Q6H PRN pain #60 tabs 06/07/24 mg tablet Allergies Allergy/AdvReac Type Severity Reaction Status Date / Time No Known Allergies Allergy Verified 05/17/24 14:43 PFS <Ludivina Balderas (ED), GRIND[employer] HARDBOARD - Last Filed: 06/12/24 20:41> PFS Disclaimer: The information contained in this section may have been updated after the patient was seen, as this information can be updated by other users. Medical History Right sided weakness Weakness SOB (shortness of breath) on exertion Angina pectoris Hearing loss Cataract History of transient ischemic attack (TIA) Cyst of soft tissue DANY (obstructive sleep apnea) Patient is following with a sleep specalist. He is on nasal pillow BiPAP. He states that he gets congested and has sinus problems with the nasal pillows on the third day of using them. He states he will sneeze and does have a history of envoronmental allergies. I suggested he try fluticasone nasal spray prior to bedtime. LUKASZ (renal artery stenosis) Being followed by nephrology, he has had a renal artery stent placed. Carotid artery stenosis Right ICA endarterectomy Left hip pain Neuropathy Sciatic leg pain Surgical History History of hernia repair Hx of heart artery stent History of cholecystectomy HX of R carotid artery surgery History of colonoscopy Family History Other Family history of acute congestive heart failure Social History Smoking Status: Never smoker alcohol intake: never substance use type: denies use current occupational status: other Travel in the last 8 weeks: None household members: family housing: house current occupational exposures/hazards: No caffeine: Yes Other Medical History Have you received the Flu Vaccine for this season: No Have you received the Pneumonia Vaccine: No <Ludivina Kilrakesh (ED), [employer]IND[employer] HARDBOARD - Last Filed: 06/12/24 20:41> ROS Obtained: Yes Systems reviewed as appropriate & no additional complaints except as documented Constitutional Constitutional: Reports as per HPI Physical Exam <Ludivina Balderas (ED), [employer] HARDBOARD - Last Filed: 06/12/24 20:41> General General appearance: alert and in distress (Having pain in his knee) Head Head exam: atraumatic and normocephalic Eye Eye exam: Present normal appearance, PERRL and EOMI ENT ENT exam: Present normal oropharynx and mucous membranes moist Neck Neck exam: Present full ROM and trachea midline Respiratory Respiratory exam: Present normal lung sounds bilaterally Cardiovascular Cardiovascular exam: Present regular rate, normal rhythm, normal heart sounds, +S1 and +S2 Abdominal Exam Abdominal exam: Present soft and normal bowel sounds Extremities Exam Extremities exam: Present tenderness (Tenderness to the anterior medial aspect of his left knee with some joint swelling), normal capillary refill, joint swelling and other (Wound to left lower ankle, foot, healing chronic ) Neurological Exam Neurological exam: Present alert and oriented X3 Skin Skin exam: Present warm, dry and intact Medical Decision Making <Ludivina Balderas (ED), GRIND[employer] HARDBOARD - Last Filed: 06/12/24 20:41> Medical Records Screening: Per USPSTF and CDC recommendations, given the prevalence of disease in our region, it is our hospital?s policy to screen for HIV and viral Hepatitis for all patients aged 18 and over and those with ongoing risk factors. [place] Inquiry Pt receiving controlled substance: No Vital Signs: 06/12/24 13:13 06/12/24 13:19 06/12/24 13:53 Temperature 97.6 F Temperature Source Oral Pulse Rate 78 79 Pulse Rate [Left Radial] 74 Respiratory Rate 19 Blood Pressure 133/54 L 90/44 L Blood Pressure [Right Arm] 133/54 L Blood Pressure Mean Blood Pressure Mean [Right Arm] 80 02 Sat by Pulse Oximetry 100 98 98 Oxygen Delivery Method Room Air Room Air Room Air 06/12/24 14:17 06/12/24 14:30 06/12/24 15:00 Temperature Temperature Source Pulse Rate 81 78 79 Pulse Rate [Left Radial] Respiratory Rate 18 18 Blood Pressure 103/52 L 100/50 L 93/52 L Blood Pressure [Right Arm] Blood Pressure Mean 63 59 Blood Pressure Mean [Right Arm] 02 Sat by Pulse Oximetry 98 97 98 Oxygen Delivery Method Room Air 06/12/24 16:00 06/12/24 16:30 06/12/24 17:01 Temperature Temperature Source Pulse Rate 79 78 83 Pulse Rate [Left Radial] Respiratory Rate 19 Blood Pressure 99/61 L 89/54 L 90/55 L Blood Pressure [Right Arm] Blood Pressure Mean 73 Blood Pressure Mean [Right Arm] 02 Sat by Pulse Oximetry 98 99 100 Oxygen Delivery Method Room Air Room Air 06/12/24 17:30 06/12/24 18:00 06/12/24 18:30 Temperature Temperature Source Pulse Rate 76 77 77 Pulse Rate [Left Radial] Respiratory Rate 18 Blood Pressure 96/56 L 105/51 L 90/47 L Blood Pressure [Right Arm] Blood Pressure Mean 61 69 61 Blood Pressure Mean [Right Arm] 02 Sat by Pulse Oximetry 92 L 100 99 Oxygen Delivery Method Room Air Room Air 06/12/24 19:05 Temperature Temperature Source Pulse Rate 78 Pulse Rate [Left Radial] Respiratory Rate Blood Pressure 102/61 L Blood Pressure [Right Arm] Blood Pressure Mean 74 Blood Pressure Mean [Right Arm] 02 Sat by Pulse Oximetry 99 Oxygen Delivery Method Room Air Lab Data Lab Results 06/12/24 14:42: WBC 7.9, RBC 3.63 L, Hgb 10.1 L, Hct 33.4 L, MCV 91.9, MCH 27.7, MCHC 30.2 L, RDW 17.6 H, Plt Count 304, MPV 7.6, Neut % (Auto) 77.9, Lymph % (Auto) 14.6, [place] % (Auto) 5.7, Eos % (Auto) 1.3, Baso % (Auto) 0.6, Neut # (Auto) 6.1, Lymph # (Auto) 1.1, [place] # (Auto) 0.5, Eos # (Auto) 0.1, Baso # (Auto) 0.1, ESR 85 H, Sodium 137, Potassium 5.0, Chloride 109 H, Carbon Dioxide 20 L, Anion Gap 13.0, BUN 31 H, Creatinine 2.40 H, Estimated Creat Clear 49, E stimated GFR 27 L, Est GFR ( Amer) 33 L, Glucose 130 H, Calcium 8.6, Total Bilirubin 0.5, AST 19, ALT 7 L, Alkaline Phosphatase 95, C-Reactive Protein 148.7 H, Total Protein 7.2, Albumin 3.4 L, Globulin 3.8 H, A lbumin/Globulin Ratio 0.9 L, HIV 1&2 Antibody Rapid Nonreactive 06/12/24 14:42 06/12/24 14:42 Orders (Tests/Meds): ED MEDICATIONS Discontinued Medications Generic Name Dose Route Start Last Admin Trade Name Freq PRN Reason Stop Dose Admin Hydrocodone Bitart/Acetaminophen 2 tab 06/12/24 13:24 06/12/24 13:37 Hydrocodone/Apap 5/325 Mg Tablet PO 06/12/24 13:25 2 tab ONCE ONE Administration Ketorolac Tromethamine 30 mg 06/12/24 13:24 06/12/24 13:37 Ketorolac 30mg/Ml Vial IM 06/12/24 13:25 30 mg ONCE ONE Administration ORDERS Category Date Time Status CT knee LT wo con Stat Cat Scan 06/12/24 14:48 Completed Knee XR left 3 views [XR knee LT 3V] Stat Exams 06/12/24 13:24 Completed C-Reactive Protein Stat Lab 06/12/24 14:42 Completed CBC [Complete Blood Count Auto Diff] Stat Lab 06/12/24 14:42 Completed Comprehensive Metabolic Panel Stat Lab 06/12/24 14:42 Completed Erythrocyte Sedimentation Rate Stat Lab 06/12/24 14:42 Completed HIV (1&2) Antibody Rapid Stat Lab 06/12/24 14:42 Completed Hep C Ab with Reflex to RNA Stat Lab 06/12/24 14:42 Received [facility] Syn Cell Count w. Crystals Stat Lab 06/12/24 17:15 Received Body Fluid Cult & Gram Stain Stat Micro 06/12/24 17:15 Results <Ignacia Matthews MD - Last Filed: 06/12/24 21:05> Vital Signs: 06/12/24 13:13 06/12/24 13:19 06/12/24 13:53 Temperature 97.6 F Temperature Source Oral Pulse Rate 78 79 Pulse Rate [Left Radial] 74 Respiratory Rate 19 Blood Pressure 133/54 L 90/44 L Blood Pressure [Right Arm] 133/54 L Blood Pressure Mean Blood Pressure Mean [Right Arm] 80 02 Sat by Pulse Oximetry 100 98 98 Oxygen Delivery Method Room Air Room Air Room Air 06/12/24 14:17 06/12/24 14:30 06/12/24 15:00 Temperature Temperature Source Pulse Rate 81 78 79 Pulse Rate [Left Radial] Respiratory Rate 18 18 Blood Pressure 103/52 L 100/50 L 93/52 L Blood Pressure [Right Arm] Blood Pressure Mean 63 59 Blood Pressure Mean [Right Arm] 02 Sat by Pulse Oximetry 98 97 98 Oxygen Delivery Method Room Air 06/12/24 16:00 06/12/24 16:30 06/12/24 17:01 Temperature Temperature Source Pulse Rate 79 78 83 Pulse Rate [Left Radial] Respiratory Rate 19 Blood Pressure 99/61 L 89/54 L 90/55 L Blood Pressure [Right Arm] Blood Pressure Mean 73 Blood Pressure Mean [Right Arm] 02 Sat by Pulse Oximetry 98 99 100 Oxygen Delivery Method Room Air Room Air 06/12/24 17:30 06/12/24 18:00 06/12/24 18:30 Temperature Temperature Source Pulse Rate 76 77 77 Pulse Rate [Left Radial] Respiratory Rate 18 Blood Pressure 96/56 L 105/51 L 90/47 L Blood Pressure [Right Arm] Blood Pressure Mean 61 69 61 Blood Pressure Mean [Right Arm] 02 Sat by Pulse Oximetry 92 L 100 99 Oxygen Delivery Method Room Air Room Air 06/12/24 19:05 Temperature Temperature Source Pulse Rate 78 Pulse Rate [Left Radial] Respiratory Rate Blood Pressure 102/61 L Blood Pressure [Right Arm] Blood Pressure Mean 74 Blood Pressure Mean [Right Arm] 02 Sat by Pulse Oximetry 99 Oxygen Delivery Method Room Air Lab Data Lab results reviewed: Yes I reviewed the patient's lab results. Lab Results 06/12/24 14:42: WBC 7.9, RBC 3.63 L, Hgb 10.1 L, Hct 33.4 L, MCV 91.9, MCH 27.7, MCHC 30.2 L, RDW 17.6 H, Plt Count 304, MPV 7.6, Neut % (Auto) 77.9, Lymph % (Auto) 14.6, [place] % (Auto) 5.7, Eos % (Auto) 1.3, Baso % (Auto) 0.6, Neut # (Auto) 6.1, Lymph # (Auto) 1.1, [place] # (Auto) 0.5, Eos # (Auto) 0.1, Baso # (Auto) 0.1, ESR 85 H, Sodium 137, Potassium 5.0, Chloride 109 H, Carbon Dioxide 20 L, Anion Gap 13.0, BUN 31 H, Creatinine 2.40 H, Estimated Creat Clear 49, E stimated GFR 27 L, Est GFR ( Amer) 33 L, Glucose 130 H, Calcium 8.6, Total Bilirubin 0.5, AST 19, ALT 7 L, Alkaline Phosphatase 95, C-Reactive Protein 148.7 H, Total Protein 7.2, Albumin 3.4 L, Globulin 3.8 H, A lbumin/Globulin Ratio 0.9 L, HIV 1&2 Antibody Rapid Nonreactive Orders (Tests/Meds): ED MEDICATIONS Discontinued Medications Generic Name Dose Route Start Last Admin Trade Name Freq PRN Reason Stop Dose Admin Hydrocodone Bitart/Acetaminophen 2 tab 06/12/24 13:24 06/12/24 13:37 Hydrocodone/Apap 5/325 Mg Tablet PO 06/12/24 13:25 2 tab ONCE ONE Administration Ketorolac Tromethamine 30 mg 06/12/24 13:24 06/12/24 13:37 Ketorolac 30mg/Ml Vial IM 06/12/24 13:25 30 mg ONCE ONE Administration ORDERS Category Date Time Status CT knee LT wo con Stat Cat Scan 06/12/24 14:48 Completed Knee XR left 3 views [XR knee LT 3V] Stat Exams 06/12/24 13:24 Completed C-Reactive Protein Stat Lab 06/12/24 14:42 Completed CBC [Complete Blood Count Auto Diff] Stat Lab 06/12/24 14:42 Completed Comprehensive Metabolic Panel Stat Lab 06/12/24 14:42 Completed Erythrocyte Sedimentation Rate Stat Lab 06/12/24 14:42 Completed HIV (1&2) Antibody Rapid Stat Lab 06/12/24 14:42 Completed Hep C Ab with Reflex to RNA Stat Lab 06/12/24 14:42 Received [facility] Syn Cell Count w. Crystals Stat Lab 06/12/24 17:15 Received Body Fluid Cult & Gram Stain Stat Micro 06/12/24 17:15 Results Medical Decision Narrative: This is Dr. Matthews I took over from Dr. Parisi at 3 PM. Patient was initially seen by Dr. Parisi and Karen Hennessy. The patient had fallen a few weeks ago but had a period of normalcy and then developed significant pain and swelling and difficulty moving the left knee. On my exam it is very tense in terms of having a large effusion and fixed flexed position however is not warm or erythematous. He has not been having any fevers or chills either. After reviewing the patient's records here and at [facility] has had a poorly healing wound and osteomyelitis of the left lower extremity has been followed by infectious disease currently has a PICC line and getting IV antibiotics. Dr. Parisi ordered some inflammatory markers given the size of this patient's effusion as well as plain films and a CT scan and inflammatory markers were significantly elevated and higher than they have been in the past in our records. Therefore the decision was made to potentially pursue an arthrocentesis. CT scan was performed which I personally interpreted shows no fractures or dislocation there was some evidence of arthritis and an effusion that was read by radiology as a probable hemarthrosis. Given the fact that he had a history of trauma I suspect that also myself that this was most likely blood. I had an extensive discussion with the patient and told him I could not rule out an infectious process. He consented to doing a procedure and I proceeded with a left knee arthrocentesis. I removed 30 cc of thick purulent material from his left knee. This was performed on a medial approach. There was no evidence of any bladder hemarthrosis. We sent the synovial fluid to [facility] whom we have in agreement with to run cell count given the fact that we do not have a analyzer here to perform that. At around 9 PM I checked the patient's records and he had greater than 100,000 nucleated white blood cells. Crystal analysis pending Gram stain and culture pending. Given the fact that there is this amount of white working diagnosis is a septic arthritis. He has had an extensive infectious disease history and I felt that he would be best served at where he has [place] backup. I spoke with Dr. Diana at [facility] transfer center who agreed to accept the patient to [place] emergency department. Procedures <Ignacia Matthews MD - Last Filed: 06/12/24 21:05> Joint Aspiration/Injection Joint Asp./Inject. 1: Side of body: left Joint Aspirated: knee Skin Prep: Chlorhexidine Local Anesthetic: lidocaine 1% and with epi Amount of anesthesia used (mL): 5 Needle Size Used: 18G Fluid Obtained: purulent Total fluid obtained (mL): 30 Patient Tolerated Procedure: well Complications: none Critical Care <Ludivina Balderas APRN (ED) - Last Filed: 06/12/24 20:41> Critical Care Time Critical Care Time: No <Ignacia Matthews MD - Last Filed: 06/12/24 21:05> Critical Care Time Critical Care Time: Yes Attestation: On 06/12/24, the high probability of a clinically significant, sudden or life threatening deterioration of the following system(s) required my full and direct attention, intervention and personal management. The time I documented below is in addition to time spent performing reported procedures but includes the following listed in this critical care notation. Total Time Total Critical Care Time: 35
[2024-06-12] MEDS: KETOROLAC 30MG/ML VIAL 30 MG IM (13:37)
[2024-06-12] MEDS: HYDROCODONE/APAP 5/325 MG TABLET 2 TAB PO (13:37)
--- NOTE | 2024-06-12 14:48 | CT_ITS ---
PROCEDURE INFORMATION: Exam: CT Left Lower Extremity, Knee Exam date and time: 06/12/2024 3:29 PM Age: 68 years old Clinical indication: Other: Left knee pain TECHNIQUE: Imaging protocol: CT of the left lower extremity without contrast was performed. Exam focused on the knee. Radiation optimization: All CT scans at this facility use at least one of these dose optimization techniques: automated exposure control; mA and/or kV adjustment per patient size (includes targeted exams where dose is matched to clinical indication); or iterative reconstruction. COMPARISON: CR XR KNEE LT 3V 06/12/2024 1:42 PM FINDINGS: Bones/joints: Large hemarthrosis in the suprapatellar bursa . There is no evidence of acute fracture.There is no evidence of malalignment or dislocation. Mild degenerative changes in the patellofemoral joint Soft tissues: Normal. IMPRESSION: 1. Large hemarthrosis in the suprapatellar bursa . 2. There is no evidence of acute fracture.There is no evidence of malalignment or dislocation.
[2024-06-12 14:58] LABS: Albumin Level 3.4 g/dl (3.5-5.0); Chloride 109 mmol/L (98-107); Sodium 137 mmol/L (136-145)
[2024-06-12 14:59] LABS: Basophils # 0.1 K/mm3 (0-0.2); Basophils % 0.6 % (0.1-2.0); Eosinophils # 0.1 K/mm3 (0.0-0.4); Eosinophils % 1.3 % (0.1-12.0); Hematocrit 33.4 % (42.0-52.0); Hemoglobin 10.1 g/dL (14.1-18.0); Lymphocytes # 1.1 K/mm3 (0.7-4.5); Lymphocytes % 14.6 % (10-50); Mean Corpuscular HGB Conc 30.2 g/dL (31.8-35.4); Mean Corpuscular Hemoglobin 27.7 pg (27.0-31.2); Mean Corpuscular Volume 91.9 fl (80-94); Mean Platelet Volume 7.6 fl (7.4-10.4); Monocytes # 0.5 K/mm3 (0.1-1.0); Monocytes % 5.7 % (1.7-9.3); Neutrophils # 6.1 K/mm3 (1.8-7.8); Neutrophils % 77.9 % (37.0-80.0); Platelet Count 304 K/mm3 (142-424); Red Blood Count 3.63 M/mm3 (4.60-6.20); Red Cell Distribution Width 17.6 % (11.5-17.5); White Blood Count 7.9 K/mm3 (4.8-10.8)
[2024-06-12 15:00] LABS: Blood Urea Nitrogen 31 mg/dl (9-20)
[2024-06-12 15:01] LABS: Alanine Aminotransferase 7 U/L (12-78); Albumin/Globulin Ratio 0.9 (1.1-1.8); Alkaline Phosphatase 95 U/L (38-126); Aspartate Amino Transferase 19 U/L (17-59); Bilirubin,Total 0.5 mg/dl (0.2-1.3); Calcium 8.6 mg/dl (8.4-10.2); Carbon Dioxide 20 mmol/L (22.0-30.0); Creatinine Clearance Estimated 49 mL/min (50-200); Estimated Glomerular Filt Rate 27 ml/min (>60); GFR (African American) 33 ML/MIN (>60); Globulin 3.8 g/dL (1.3-3.2); Glucose 130 mg/dl (74-100); Total Protein,Serum 7.2 g/dl (6.3-8.2)
[2024-06-12 15:07] LABS: C-Reactive Protein 148.7 mg/L (0-4)
[2024-06-12 16:03] LABS: HIV (1&2) Antibody Rapid NONREACTIVE (NONREACTIVE)
[2024-06-12 16:05] LABS: Erythrocyte Sedimentation Rate 85 mm/hr (0-20)
--- NOTE | 2024-06-12 17:09 | PC.NURSE ---
AT TO DO SUVONIVAL FLUID TAP
--- NOTE | 2024-06-12 17:18 | PC.NURSE ---
synovial fluid transported to lab via ER staff
--- NOTE | 2024-06-12 21:17 | PC.NURSE ---
EMS notified of need for transport
[2024-06-13] VITALS: BP 121/67; PULSE 78; O2SAT 97
[2024-06-13 00:30] VITALS: BP 107/58; PULSE 77; O2SAT 98
[2024-06-13 01:00] VITALS: BP 103/53; PULSE 85; O2SAT 96
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
[2024-06-14 08:08] LABS: HCV Ab Non Reactive (Non Reactive)
[2024-06-14 08:15] LABS: Clarity,Fluid CLOUDY; Color,Fluid YELLOW
[2024-06-14 08:17] LABS: Eosinophils,Fluid 0; Lining Cells, Synovial Fld 0; Lymphocytes,Fluid 3; Macrophages,Fluid 7; Polys,Fluid 90
[2024-06-14 08:18] LABS: Crystal,Synovial/Joint Fld. NO CRYSTALS SEEN
== END 2024-06-13 01:11 | disposition other institution (70) ==
PROVIDERS: Nurse Practitioner; Emergency Provider Student in an Organized Health Care Education/Training Program; PCP Internal Medicine
DX: M00.9 Pyogenic arthritis, unspecified (principal); M25.462 Effusion, left knee; M25.562 Pain in left knee
CPT/HCPCS: 20610; 73562; 73700; 80053; 85025; 85651; 86140; 86803; 87070; 87205; 87389; 89051; 96372; 99291; J1885

== ENCOUNTER 2024-08-09 14:26 | Outpatient (CLI) | payer MEDICARE, SELFPAY ==
[2024-08-09 15:55] LABS: Hemoglobin A1C 4.1 % (4.0-6.0)
[2024-08-09 16:52] LABS: Prostate Specific Ag Screen < 0.1 ng/ml (0.0-4.0)
[2024-08-09 17:11] LABS: Vitamin B12 540 pg/mL (239-931)
[2024-08-09 17:35] LABS: Folate 5.64 ng/mL
== END 2024-08-09 23:59 | disposition home or self-care (01) ==
LOC: LAB 14:31
PROVIDERS: PCP Internal Medicine; Visit Provider Internal Medicine
DX: R79.89 Other specified abnormal findings of blood chemistry (principal); E10.69 Type 1 diabetes mellitus with other specified complication; Z12.5 Encounter for screening for malignant neoplasm of prostate; Z79.899 Other long term (current) drug therapy
CPT/HCPCS: 36415; 82607; 82746; 83036; G0103

== ENCOUNTER 2024-09-10 10:14 | Emergency (ER) | payer MEDICARE, SELFPAY ==
[2024-09-10 10:24] VITALS: BP 127/54; PULSE 80; RESP 18; TEMP 36.9; O2SAT 96; BMI 30.5
[2024-09-10 10:45] VITALS: BP 127/54; PULSE 76; O2SAT 97
--- NOTE | 2024-09-10 11:10 | PC.NURSE ---
gave pt bottle of water, checked on pt
--- NOTE | 2024-09-10 12:49 | ED_ITS ---
Discharge Plan Disposition Patient Disposition: Home, Self-Care Condition: Good Prescriptions Prescriptions: New cephalexin 500 mg capsule 500 mg PO QID 7 Days Qty: 28 0RF No Action apixaban 5 mg tablet 5 mg PO BID 90 Days Qty: 180 2RF omeprazole 40 mg capsule,delayed release(DR/EC) 40 mg PO DAILY Qty: 90 1RF Rx Instructions: 0900 levothyroxine 75 mcg tablet See Rx Instructions .ROUTE .COMPLEX Qty: 90 1RF Dose Instruction: Take 1 tablet by mouth once daily Rx Instructions: Take 1 tablet by mouth once daily metformin 500 mg tablet 500 mg PO BID Qty: 60 2RF doxazosin 4 mg tablet 4 mg PO DAILY Qty: 90 1RF trazodone 150 mg tablet 150 mg PO HS PRN (Reason: sleep) Qty: 90 0RF duloxetine 20 mg capsule,delayed release(DR/EC) 20 mg PO DAILY 30 Days Qty: 30 2RF gabapentin 100 mg capsule 100 mg PO TID Qty: 90 2RF hydrocodone-acetaminophen 5-325 mg tablet 1 tab PO Q6H PRN (Reason: pain) Qty: 60 0RF atorvastatin 80 mg tablet See Rx Instructions .ROUTE .COMPLEX Qty: 90 1RF Dose Instruction: Take 1 tablet by mouth once daily Rx Instructions: Take 1 tablet by mouth once daily carvedilol 12.5 mg tablet See Rx Instructions .ROUTE .COMPLEX Qty: 180 1RF Dose Instruction: TAKE 1 TABLET BY MOUTH TWICE DAILY MUST ADMINISTER WITH MEAL/FOOD Rx Instructions: TAKE 1 TABLET BY MOUTH TWICE DAILY MUST ADMINISTER WITH MEAL/FOOD clopidogrel 75 mg tablet 75 mg PO ONCE Qty: 90 1RF lisinopril 2.5 mg tablet See Rx Instructions .ROUTE .COMPLEX Qty: 90 1RF Dose Instruction: Take 1 tablet by mouth once daily Rx Instructions: Take 1 tablet by mouth once daily finasteride 5 mg tablet 5 mg PO DAILY Qty: 30 0RF Referrals Follow up/Referrals: Addison Rizzo DO [Primary Care Provider] - See instructions Activity Restrictions/Add. Instructions Additional Instructions/Restrictions: Please keep your wound open to air and do not put anything over the wound including ointments Band-Aids occlusive dressing. If you have any increasing redness swelling or drainage return to the emergency department as needed. Sutures need to stay in for at least 7 days. You can go to [facility] or ER for suture removal. Clinical Impressions Clinical Impression: Laceration Instructions Patient Instructions: DI for Laceration Repair Print Language Print Language: [place]itanian Discharge ED Provider: Brooklyn Mcdonald General Adult HPI <ANIL Jordan - Last Filed: 09/10/24 15:05> General Chief complaint: Wound/Laceration Stated complaint: AO-2 weeks ago, laceration to back of head Time Seen by Provider: 09/10/24 12:49 Mode of Arrival: Wheelchair Source of Information: Patient and Significant Other Description of Symptoms (Recalled from ER Triage Doc. by RN): fell backwards and hit back of head on a table 2 weeks ago, no issues since last night and said the scab must of came off of head. they have since been unable to get the bleeding to stop. currently on blood thinners History of Present Illness HPI narrative: Patient presents for evaluation of scalp bleeding. Patient fell 2 weeks ago and suffered an injury to his occiput. He initially and for the last 2 weeks has had hemostasis and essentially no obvious injury. However during the night while he was sleeping the affected area began bleeding. He did not suffer any loss of consciousness has had no headache no pain no fever no chills no change in level of consciousness no intractable nausea vomiting. He is on 2 blood thinners Plavix and Eliquis as well as on oral metformin for type 2 diabetes mellitus. Related Data Previous Rx's ?Medication ?Instructions ?Recorded apixaban 5 mg tablet 5 mg PO BID 3 months #180 tabs 03/12/24 omeprazole 40 mg capsule,delayed 40 mg PO DAILY acid reflux #90 caps 03/12/24 release doxazosin 4 mg tablet 4 mg PO DAILY #90 tabs 03/17/24 trazodone 150 mg tablet 150 mg PO HS PRN sleep #90 tabs 04/13/24 duloxetine 20 mg capsule,delayed 20 mg PO DAILY 30 days #30 caps 05/04/24 release gabapentin 100 mg capsule 100 mg PO TID #90 caps 05/04/24 hydrocodone 5 mg-acetaminophen 325 1 tab PO Q6H PRN pain #60 tabs 06/07/24 mg tablet atorvastatin 80 mg tablet See Rx Instructions .Route 07/20/24 .COMPLEX #90 tabs carvedilol 12.5 mg tablet See Rx Instructions .Route 07/20/24 .COMPLEX #180 tabs clopidogrel 75 mg tablet 75 mg PO ONCE #90 tabs 07/20/24 finasteride 5 mg tablet 5 mg PO DAILY #30 tabs 07/20/24 lisinopril 2.5 mg tablet See Rx Instructions .Route 07/20/24 .COMPLEX #90 tabs levothyroxine 75 mcg tablet See Rx Instructions .Route 08/09/24 .COMPLEX #90 tabs metformin 500 mg tablet 500 mg PO BID #60 tabs 08/09/24 cephalexin 500 mg capsule 500 mg PO QID 7 days #28 caps 09/10/24 Allergies Allergy/AdvReac Type Severity Reaction Status Date / Time ertapenem Allergy Severe Hallucinati Verified 08/09/24 13:18 ng [facility] <ANIL Jordan - Last Filed: 09/10/24 15:05> [facility] Disclaimer: The information contained in this section may have been updated after the patient was seen, as this information can be updated by other users. Medical History (Updated 09/10/24 @ 13:16 by ANIL Jordan) DANY (obstructive sleep apnea) LUKASZ (renal artery stenosis) Right sided weakness Weakness SOB (shortness of breath) on exertion Angina pectoris Hearing loss Cataract History of transient ischemic attack (TIA) Cyst of soft tissue Carotid artery stenosis Left hip pain Neuropathy Sciatic leg pain Surgical History History of hernia repair Hx of heart artery stent History of cholecystectomy History of colonoscopy Family History Other Family history of acute congestive heart failure Social History Smoking Status: Never smoker alcohol intake: never substance use type: denies use current occupational status: other Travel in the last 8 weeks: None household members: family housing: house current occupational exposures/hazards: No caffeine: Yes Have you lived/traveled outside [place] in past 30 days?: No Contact w/someone who lives/traveled outside [place] past 30 days?: No Exposure to someone with infectious disease in past 14 days?: No Do you have a fever (greater than 100.4 F or 38 C)?: No Have you tested positive for COVID-19: No Exposed to someone with COVID-19 in past 14 days?: No Do you have a sore throat?: No Do you have a cough?: No Do you have any weakness?: No Do you have any diarrhea?: No Are you experiencing any unusual bleeding?: No Do you have any muscle aches/pain?: No Do you have any abdominal pain?: No Are you experiencing loss of taste or smell?: No Other Medical History Have you received the Flu Vaccine for this season: No Have you received the Pneumonia Vaccine: No <ANIL Jordan - Last Filed: 09/10/24 15:05> ROS Obtained: Yes Systems reviewed as appropriate & no additional complaints except as documented Physical Exam <ANIL Jordan - Last Filed: 09/10/24 15:05> General General appearance: alert and in no apparent distress Respiratory Respiratory exam: Present normal lung sounds bilaterally Cardiovascular Cardiovascular exam: Present regular rate Neurological Exam Neurological exam: Present alert and oriented X3 Medical Decision Making <ANIL Jordan - Last Filed: 09/10/24 15:05> Medical Records Medical records reviewed: Yes I reviewed the patient's medical records. Screening: Per USPSTF and CDC recommendations, given the prevalence of disease in our region, it is our hospital?s policy to screen for HIV and viral Hepatitis for all patients aged 18 and over and those with ongoing risk factors. [facility] Inquiry Pt receiving controlled substance: No Vital Signs: 09/10/24 10:24 09/10/24 10:45 09/10/24 14:08 Temperature 98.5 F 98.1 F Temperature Source Oral Oral Pulse Rate 76 75 Pulse Rate [Right Brachial] 80 Respiratory Rate 18 18 Blood Pressure 127/54 L 125/62 Blood Pressure [Right Arm] 127/54 L Blood Pressure Mean [Right Arm] 78 Blood Pressure Source Automatic Cuff Blood Pressure Position Sitting 02 Sat by Pulse Oximetry 96 97 Oxygen Delivery Method Room Air Room Air Lab Data Lab results reviewed: Yes I reviewed the patient's lab results. Orders (Tests/Meds): ED MEDICATIONS Discontinued Medications Generic Name Dose Route Start Last Admin Trade Name Freq PRN Reason Stop Dose Admin Cephalexin HCl 500 mg 09/10/24 13:13 09/10/24 13:22 Cephalexin 500mg Capsule PO 09/10/24 13:14 500 mg ONCE ONE Administration ORDERS Category Date Time Status CT cervical spine wo con Stat Cat Scan 09/10/24 13:[address] head/brain wo con Stat Cat Scan 09/10/24 13:13 Completed Medical Decision Narrative: In summary patient is a 69-year-old male who presents to the emergency department for evaluation of scalp bleeding from a fall 2 weeks ago. Patient is dynamically stable upon arrival, afebrile. Physical exam is remarkable for bleeding from an area in the occiput. Unfortunately I am able to visualize initially the source as there is matted hair and clotted blood. I do not feel any palpable bony deformity however and the bleeding is easily controlled with direct pressure with my finger. Differential diagnosis includes scalp wound versus laceration versus skull fracture. Initial workup will be conducted with CT scan of the head and C-spine. Initial interventions performed by me which is direct pressure to control bleeding with fingertip pressure and then cleaning the area to remove the clotted blood and matted hair. Initial workup reviewed by me informed interpretation of his CT scan of the head and C-spine shows no acute processes. After I cleaned the area from the matted and clotted blood I and revealed a 2 cm linear laceration. Calvarium is not visible. I subsequently cleaned and irrigated the wound with normal saline then after assuring that it is just a superficial laceration utilizing lidocaine with epinephrine locally anesthetized the wound and then repaired with four 4.0 nylon interrupted sutures. I had excellent hemostasis afterwards. Given this patient is appropriate for discharge with a prescription for Keflex with first dose given here and strict return precautions as well as wound care instructions given by myself. <Brooklyn Mcdonald MD - Last Filed: 09/10/24 15:45> Vital Signs: 09/10/24 10:24 09/10/24 10:45 09/10/24 14:08 Temperature 98.5 F 98.1 F Temperature Source Oral Oral Pulse Rate 76 75 Pulse Rate [Right Brachial] 80 Respiratory Rate 18 18 Blood Pressure 127/54 L 125/62 Blood Pressure [Right Arm] 127/54 L Blood Pressure Mean [Right Arm] 78 Blood Pressure Source Automatic Cuff Blood Pressure Position Sitting 02 Sat by Pulse Oximetry 96 97 Oxygen Delivery Method Room Air Room Air Orders (Tests/Meds): ED MEDICATIONS Discontinued Medications Generic Name Dose Route Start Last Admin Trade Name Freq PRN Reason Stop Dose Admin Cephalexin HCl 500 mg 09/10/24 13:13 09/10/24 13:22 Cephalexin 500mg Capsule PO 09/10/24 13:14 500 mg ONCE ONE Administration ORDERS Category Date Time Status CT cervical spine wo con Stat Cat Scan 09/10/24 13:[address] head/brain wo con Stat Cat Scan 09/10/24 13:13 Completed Medical Decision Narrative: In summary patient is a 69-year-old male who presents to the emergency department for evaluation of scalp bleeding from a fall 2 weeks ago. Patient is dynamically stable upon arrival, afebrile. Physical exam is remarkable for bleeding from an area in the occiput. Unfortunately I am able to visualize ini tially the source as there is matted hair and clotted blood. I do not feel any palpable bony deformity however and the bleeding is easily controlled with direct pressure with my finger. Differential diagnosis includes scalp wound versus laceration versus skull fracture. Initial workup will be conducted with CT scan of the head and C-spine. Initial interventions performed by me which is direct pressure to control bleeding with fingertip pressure and then cleaning the area to remove the clotted blood and matted hair. Initial workup reviewed by me informed interpretation of his CT scan of the head and C-spine shows no acute processes. After I cleaned the area from the matted and clotted blood I and revealed a 2 cm linear laceration. Calvarium is not visible. I subsequently cleaned and irrigated the wound with normal saline then after assuring that it is just a superficial laceration utilizing lidocaine with epinephrine locally anesthetized the wound and then repaired with four 4.0 nylon interrupted sutures. I had excellent hemostasis afterwards. Given this patient is appropriate for discharge with a prescription for Keflex with first dose given here and strict return precautions as well as wound care instructions given by myself. I was consulted by the STEVEN, and we discussed the complexity of problems being addressed. I approved the treatment and management plan for this patient's care in the emergency department, thus performing a substantial portion of the medical decision making. Brooklyn Mcdonald MD Procedures <ANIL Jordan - Last Filed: 09/10/24 15:05> Laceration Laceration 1: Site: scalp Size (cm): 2 Description: linear Depth: simple, single layer Local Anesthetic: lidocaine 1% and with epi Amount of anesthesia used (mL): 10 Pre-repair: wound explored, irrigated extensively and deep structures intact Skin layer closed with: nylon Size (cm): 4-0 Number of sutures: 4 Technique: simple, interrupted Critical Care <ANIL Jordan - Last Filed: 09/10/24 15:05> Critical Care Time Critical Care Time: Yes Attestation: On 09/10/24, the high probability of a clinically significant, sudden or life threatening deterioration of the following system(s) required my full and direct attention, intervention and personal management. The time I documented below is in addition to time spent performing reported procedures but includes the following listed in this critical care notation. Total Time Total Critical Care Time: 35
--- NOTE | 2024-09-10 13:13 | CT_ITS ---
FINAL REPORT TECHNIQUE: Noncontrast exam. Coronal and sagittal images were obtained and reviewed. This study was performed with techniques to keep radiation doses as low as reasonably achievable, (ALARA). Individualized dose reduction techniques using automated exposure control or adjustment of mA and/or kV according to the patient''s size were employed. CLINICAL HISTORY: Fall, occipital laceration x 2 weeks ago COMPARISON: None FINDINGS: There is mild generalized atrophy. No abnormal density is seen. Ventricles are normal. There is no edema or hemorrhage. No mass effect is seen. Bone windows show no evidence of fracture. IMPRESSION: No acute findings Reviewed, Interpreted and Dictated by Mauricio Lima MD Transcribed by Salome Stokes Authenticated and [facility]
--- NOTE | 2024-09-10 13:13 | CT_ITS ---
FINAL REPORT TECHNIQUE: Thin section axial CT with sagittal and coronal reconstruction without contrast This study was performed with techniques to keep radiation doses as low as reasonably achievable, (ALARA). Individualized dose reduction techniques using automated exposure control or adjustment of mA and/or kV according to the patient''s size were employed. CLINICAL HISTORY: Fall, occipital laceration x 2 weeks ago COMPARISON: None FINDINGS: No fracture is seen. Alignment is normal. No obvious bony spinal canal stenosis is present. Mild diffuse degenerative disc disease. IMPRESSION: No acute findings. Reviewed, Interpreted and Dictated by Mauricio Lima MD Transcribed by Salome Stokes Authenticated and [facility]
[2024-09-10] MEDS: cephALEXin 500MG CAPSULE 500 MG PO (13:22)
[2024-09-10 14:08] VITALS: BP 125/62; PULSE 75; RESP 18; TEMP 36.7; O2SAT 97
== END 2024-09-10 14:10 | disposition home or self-care (01) ==
PROVIDERS: Emergency Provider Student in an Organized Health Care Education/Training Program; PCP Internal Medicine
DX: S01.81XA Laceration without foreign body of other part of head, initial encounter (principal); W19.XXXA Unspecified fall, initial encounter
CPT/HCPCS: 70450; 72125; 99284

== ENCOUNTER 2024-09-17 08:56 | Emergency (ER) | payer MEDICARE, SELFPAY ==
[2024-09-17 09:04] VITALS: BP 144/67; PULSE 82; RESP 16; TEMP 36.7; O2SAT 97; BMI 31.1
[2024-09-17 09:06] VITALS: BP 144/67; PULSE 79; O2SAT 99
--- NOTE | 2024-09-17 09:09 | HMH.EDGENADL ---
Discharge Plan Disposition Patient Disposition: Home, Self-Care Chief Complaint: Wound/Laceration Prescriptions Prescriptions: No Action apixaban 5 mg tablet 5 mg PO BID 90 Days Qty: 180 2RF omeprazole 40 mg capsule,delayed release(DR/EC) 40 mg PO DAILY Qty: 90 1RF Rx Instructions: 0900 levothyroxine 75 mcg tablet See Rx Instructions .ROUTE .COMPLEX Qty: 90 1RF Dose Instruction: Take 1 tablet by mouth once daily Rx Instructions: Take 1 tablet by mouth once daily metformin 500 mg tablet 500 mg PO BID Qty: 60 2RF doxazosin 4 mg tablet 4 mg PO DAILY Qty: 90 1RF trazodone 150 mg tablet 150 mg PO HS PRN (Reason: sleep) Qty: 90 0RF duloxetine 20 mg capsule,delayed release(DR/EC) 20 mg PO DAILY 30 Days Qty: 30 2RF gabapentin 100 mg capsule 100 mg PO TID Qty: 90 2RF hydrocodone-acetaminophen 5-325 mg tablet 1 tab PO Q6H PRN (Reason: pain) Qty: 60 0RF atorvastatin 80 mg tablet See Rx Instructions .ROUTE .COMPLEX Qty: 90 1RF Dose Instruction: Take 1 tablet by mouth once daily Rx Instructions: Take 1 tablet by mouth once daily carvedilol 12.5 mg tablet See Rx Instructions .ROUTE .COMPLEX Qty: 180 1RF Dose Instruction: TAKE 1 TABLET BY MOUTH TWICE DAILY MUST ADMINISTER WITH MEAL/FOOD Rx Instructions: TAKE 1 TABLET BY MOUTH TWICE DAILY MUST ADMINISTER WITH MEAL/FOOD clopidogrel 75 mg tablet 75 mg PO ONCE Qty: 90 1RF lisinopril 2.5 mg tablet See Rx Instructions .ROUTE .COMPLEX Qty: 90 1RF Dose Instruction: Take 1 tablet by mouth once daily Rx Instructions: Take 1 tablet by mouth once daily finasteride 5 mg tablet 5 mg PO DAILY Qty: 30 0RF cephalexin 500 mg capsule 500 mg PO QID 7 Days Qty: 28 0RF Referrals Follow up/Referrals: Addison Rizzo DO [Primary Care Provider] - See instructions Activity Restrictions/Add. Instructions Additional Instructions/Restrictions: At this time it was felt you are safe to be discharged home. If new or worsening symptoms please do not hesitate to return the emergency department. With regards to your wound I put a chemical on it that would stop the bleeding, and subsequently put a special piece of gauze called Surgicel over it that when it uses it will clot into and hold it in place. Do not remove the Surgicel, do not wash the wound as it will likely reopen and bleed. The Surgicel will fall off after the scab falls off. Please change the dressing with a nonstick pad followed by gauze over top with a nonstick pad and head wrap at least once daily. Follow-up with your family doctor in 1 week to ensure things are headed in the right direction. Clinical Impressions Clinical Impression: Open scalp wound Instructions Patient Instructions: DI for Laceration Repair Print Language Print Language: Colombian Discharge ED Provider: Drake Boykin General Adult HPI General Chief complaint: Wound/Laceration Stated complaint: Bleeding from previous laceration on back of head Time Seen by Provider: 09/17/24 08:58 Mode of Arrival: Ambulatory Source of Information: Patient Description of Symptoms (Recalled from ER Triage Doc. by RN): Patient reports laceration to the back of the head that was sutured 7 days ago and this morning he woke up to it bleeding. History of Present Illness HPI narrative: Patient is a 69-year-old male who presents for repeat evaluation of a laceration that is bleeding. Patient fell previously, was seen in the ER approximately [address] scans were got and showed no acute traumatic pathology intracranially or in the cervical spine. Wound underwent repair with 4-0 nylon sutures, number of sutures was 4 in simple interrupted fashion. It was going well throughout the course the week and he was actually supposed to follow-up today to see if sutures were to come out however at night he wiggles himself up in bed causing significant friction over his posterior scalp which seemingly has opened up his wound as he awoke with matted blood on the back of his head. He presents here for continued evaluation. No new trauma. Related Data Previous Rx's ?Medication ?Instructions ?Recorded apixaban 5 mg tablet 5 mg PO BID 3 months #180 tabs 03/12/24 omeprazole 40 mg capsule,delayed 40 mg PO DAILY acid reflux #90 caps 03/12/24 release doxazosin 4 mg tablet 4 mg PO DAILY #90 tabs 03/17/24 trazodone 150 mg tablet 150 mg PO HS PRN sleep #90 tabs 04/13/24 duloxetine 20 mg capsule,delayed 20 mg PO DAILY 30 days #30 caps 05/04/24 release gabapentin 100 mg capsule 100 mg PO TID #90 caps 05/04/24 hydrocodone 5 mg-acetaminophen 325 1 tab PO Q6H PRN pain #60 tabs 06/07/24 mg tablet atorvastatin 80 mg tablet See Rx Instructions .Route 07/20/24 .COMPLEX #90 tabs carvedilol 12.5 mg tablet See Rx Instructions .Route 07/20/24 .COMPLEX #180 tabs clopidogrel 75 mg tablet 75 mg PO ONCE #90 tabs 07/20/24 finasteride 5 mg tablet 5 mg PO DAILY #30 tabs 07/20/24 lisinopril 2.5 mg tablet See Rx Instructions .Route 07/20/24 .COMPLEX #90 tabs levothyroxine 75 mcg tablet See Rx Instructions .Route 08/09/24 .COMPLEX #90 tabs metformin 500 mg tablet 500 mg PO BID #60 tabs 08/09/24 cephalexin 500 mg capsule 500 mg PO QID 7 days #28 caps 09/10/24 Allergies Allergy/AdvReac Type Severity Reaction Status Date / Time ertapenem Allergy Severe Hallucinati Verified 08/09/24 13:18 Replaced by [facility] Disclaimer: The information contained in this section may have been updated after the patient was seen, as this information can be updated by other users. Medical History (Updated 09/17/24 @ 10:46 by Drake Boykin MD) DANY (obstructive sleep apnea) LUKASZ (renal artery stenosis) Right sided weakness Weakness SOB (shortness of breath) on exertion Angina pectoris Hearing loss Cataract History of transient ischemic attack (TIA) Cyst of soft tissue Carotid artery stenosis Left hip pain Neuropathy Sciatic leg pain Surgical History History of hernia repair Hx of heart artery stent History of cholecystectomy History of colonoscopy Family History Other Family history of acute congestive heart failure Social History Smoking Status: Never smoker alcohol intake: never substance use type: denies use current occupational status: other Travel in the last 8 weeks: None household members: family housing: house current occupational exposures/hazards: No caffeine: Yes Have you lived/traveled outside [place] in past 30 days?: No Contact w/someone who lives/traveled outside US past 30 days?: No Exposure to someone with infectious disease in past 14 days?: No Do you have a fever (greater than 100.4 F or 38 C)?: No Have you tested positive for COVID-19: No Exposed to someone with COVID-19 in past 14 days?: No Do you have a sore throat?: No Do you have a cough?: No Do you have any weakness?: No Do you have any diarrhea?: No Are you experiencing any unusual bleeding?: No Do you have any muscle aches/pain?: No Do you have any abdominal pain?: No Are you experiencing loss of taste or smell?: No Other Medical History Have you received the Flu Vaccine for this season: No Have you received the Pneumonia Vaccine: No ROS Obtained: Yes Systems reviewed as appropriate & no additional complaints except as documented Physical Exam General General appearance: alert and in no apparent distress Head Head exam: normocephalic and other (Matted blood over the back of the vertex, no active hemorrhage) Eye Eye exam: Present PERRL and EOMI ENT ENT exam: Present mucous membranes moist Neck Neck exam: Present normal inspection Chest Chest inspection: Present normal inspection and symmetric chest wall rise Respiratory Respiratory exam: Absent respiratory distress Cardiovascular Cardiovascular exam: Present regular rate and normal rhythm Extremities Exam Extremities exam: Present normal inspection Neurological Exam Neurological exam: Present alert Psychiatric Psychiatric exam: Present normal affect Skin Skin exam: Present warm and dry Medical Decision Making Medical Records Screening: Per USPSTF and CDC recommendations, given the prevalence of disease in our region, it is our hospital?s policy to screen for HIV and viral Hepatitis for all patients aged 18 and over and those with ongoing risk factors. Harman Inquiry Pt receiving controlled substance: No Vital Signs: 09/17/24 09:04 09/17/24 09:06 09/17/24 09:30 Temperature 98.0 F Temperature Source Oral Pulse Rate 79 82 Pulse Rate [Radial] 82 Respiratory Rate 16 Blood Pressure 144/67 H 136/62 Blood Pressure [Left Arm] 144/67 H Blood Pressure Mean [Left Arm] 92 Blood Pressure Source [Left Arm] Automatic Cuff Blood Pressure Position [Left Arm] Sitting 02 Sat by Pulse Oximetry 97 99 97 Oxygen Delivery Method Room Air Orders (Tests/Meds): ED MEDICATIONS Generic Name Dose Route Start Last Admin Trade Name Mary PRN Reason Stop Dose Admin Silver Nitrate 5 each 09/17/24 10:41 Silver Nitrate Applicator TP 09/17/24 10:42 ONCE ONE Medical Decision Narrative: In summary patient is a 69-year-old male with past medical history described above presents emergency department for evaluation of suspected dehiscence of his repair from a fall. Patient is on anticoagulation, wound will be cleaned to see if it needs to undergo primary repair again or if we can allow it to heal by secondary intention if we can obtain hemostasis given that it is high risk of infection. CT imaging reviewed previously of the cervical spine and head no acute findings. No new trauma to warrant further diagnostic imaging although was considered will be deferred. I consulted wound care and we remove stitches and placed dressing on it, see procedure note. Hemostasis was achieved, it does not appear infected and patient does not need antibiotics and he was given return precautions and is appropriate for outpatient management. Procedure: Procedure performed was wound evaluation and dressing. Procedure performed by Drake Boykin and Nestor Ramirez. Wound approximately 2.5 cm circumferentially at the vertex oozing blood with granulomatous tissue was cleaned, matted hair on the scalp was cleaned. The 4 sutures that were within the granuloma were removed. Wound underwent chemical cautery with silver nitrate and Surgicel dressing was placed over it with subsequent mild pressure dressing and nonstick pad. This was facilitated by 8 cc of lidocaine with 1% epinephrine. Patient tolerated the procedure well. There were no immediate complications. Critical Care Critical Care Time Critical Care Time: No
[2024-09-17 09:30] VITALS: BP 136/62; PULSE 82; O2SAT 97
--- NOTE | 2024-09-17 10:32 | PC.NURSE ---
Nestor with wound care and Dr Boykin at bedside
[2024-09-17] MEDS: SILVER NITRATE APPLICATOR 5 EACH TP (10:51)
[2024-09-17 10:54] VITALS: BP 140/71; PULSE 80; RESP 18; TEMP 36.7; O2SAT 98
== END 2024-09-17 10:56 | disposition home or self-care (01) ==
PROVIDERS: Emergency Provider Emergency Medicine; PCP Internal Medicine
DX: S01.00XA Unspecified open wound of scalp, initial encounter (principal)
CPT/HCPCS: 99282; 99283

== ENCOUNTER 2024-09-24 10:43 | Emergency (ER) | payer MEDICARE, SELFPAY ==
[2024-09-24] VITALS (15 sets, daily range): BP systolic 123–178; BP diastolic 68–107; PULSE 72–84; RESP 16; TEMP 36.7; O2SAT 97–99; BMI 31.1
--- NOTE | 2024-09-24 10:47 | HMH.EDGENADL ---
Discharge Plan Disposition Patient Disposition: Home, Self-Care Prescriptions Prescriptions: New amoxicillin-pot clavulanate 875-125 mg tablet 1 tab PO BID 5 Days Qty: 10 0RF doxycycline hyclate 100 mg capsule 100 mg PO BID 10 Days Qty: 20 0RF No Action apixaban 5 mg tablet 5 mg PO BID 90 Days Qty: 180 2RF omeprazole 40 mg capsule,delayed release(DR/EC) 40 mg PO DAILY Qty: 90 1RF Rx Instructions: 0900 levothyroxine 75 mcg tablet See Rx Instructions .ROUTE .COMPLEX Qty: 90 1RF Dose Instruction: Take 1 tablet by mouth once daily Rx Instructions: Take 1 tablet by mouth once daily metformin 500 mg tablet 500 mg PO BID Qty: 60 2RF doxazosin 4 mg tablet 4 mg PO DAILY Qty: 90 1RF trazodone 150 mg tablet 150 mg PO HS PRN (Reason: sleep) Qty: 90 0RF duloxetine 20 mg capsule,delayed release(DR/EC) 20 mg PO DAILY 30 Days Qty: 30 2RF gabapentin 100 mg capsule 100 mg PO TID Qty: 90 2RF hydrocodone-acetaminophen 5-325 mg tablet 1 tab PO Q6H PRN (Reason: pain) Qty: 60 0RF atorvastatin 80 mg tablet See Rx Instructions .ROUTE .COMPLEX Qty: 90 1RF Dose Instruction: Take 1 tablet by mouth once daily Rx Instructions: Take 1 tablet by mouth once daily carvedilol 12.5 mg tablet See Rx Instructions .ROUTE .COMPLEX Qty: 180 1RF Dose Instruction: TAKE 1 TABLET BY MOUTH TWICE DAILY MUST ADMINISTER WITH MEAL/FOOD Rx Instructions: TAKE 1 TABLET BY MOUTH TWICE DAILY MUST ADMINISTER WITH MEAL/FOOD clopidogrel 75 mg tablet 75 mg PO ONCE Qty: 90 1RF lisinopril 2.5 mg tablet See Rx Instructions .ROUTE .COMPLEX Qty: 90 1RF Dose Instruction: Take 1 tablet by mouth once daily Rx Instructions: Take 1 tablet by mouth once daily finasteride 5 mg tablet 5 mg PO DAILY Qty: 30 0RF cephalexin 500 mg capsule 500 mg PO QID 7 Days Qty: 28 0RF Referrals Follow up/Referrals: Addison Rizzo DO [Primary Care Provider] - See instructions Activity Restrictions/Add. Instructions Additional Instructions/Restrictions: Follow-up with your primary care doctor for repeat imaging of your kidney. Return to the emergency department for new or worsening symptoms including severe fatigue or difficulty breathing. Clinical Impressions Clinical Impression: Pneumonia Instructions Patient Instructions: Pneumonia--Adult Print Language Print Language: Yi Discharge ED Provider: Brooklyn Mcdonald General Adult HPI General Chief complaint: PAIN Stated complaint: back/rib pain-no accident Time Seen by Provider: 09/24/24 10:46 History of Present Illness HPI narrative: Patient is a 69-year-old with past medical history significant for DVT right upper extremity on eliquis CKD stage III CABG on plavix CHF presents to the emergency department with left flank and abdominal pain worse with taking a deep breath then. Pain is 8 out of 10 constant and worsened with ever he takes a deep breath. No cough congestion fever diarrhea nausea or vomiting. Prior abdominal surgery significant for hernia repair. No blood in his stool or urine. Increased urinary frequency. Patient also has swelling of his bilateral lower extremities. Related Data Previous Rx's ?Medication ?Instructions ?Recorded apixaban 5 mg tablet 5 mg PO BID 3 months #180 tabs 03/12/24 omeprazole 40 mg capsule,delayed 40 mg PO DAILY acid reflux #90 caps 03/12/24 release doxazosin 4 mg tablet 4 mg PO DAILY #90 tabs 03/17/24 trazodone 150 mg tablet 150 mg PO HS PRN sleep #90 tabs 04/13/24 duloxetine 20 mg capsule,delayed 20 mg PO DAILY 30 days #30 caps 05/04/24 release gabapentin 100 mg capsule 100 mg PO TID #90 caps 05/04/24 hydrocodone 5 mg-acetaminophen 325 1 tab PO Q6H PRN pain #60 tabs 06/07/24 mg tablet atorvastatin 80 mg tablet See Rx Instructions .Route 07/20/24 .COMPLEX #90 tabs carvedilol 12.5 mg tablet See Rx Instructions .Route 07/20/24 .COMPLEX #180 tabs clopidogrel 75 mg tablet 75 mg PO ONCE #90 tabs 07/20/24 finasteride 5 mg tablet 5 mg PO DAILY #30 tabs 07/20/24 lisinopril 2.5 mg tablet See Rx Instructions .Route 07/20/24 .COMPLEX #90 tabs levothyroxine 75 mcg tablet See Rx Instructions .Route 08/09/24 .COMPLEX #90 tabs metformin 500 mg tablet 500 mg PO BID #60 tabs 08/09/24 cephalexin 500 mg capsule 500 mg PO QID 7 days #28 caps 09/10/24 amoxicillin 875 mg-potassium 1 tab PO BID 5 days #10 tabs 09/24/24 clavulanate 125 mg tablet doxycycline hyclate 100 mg capsule 100 mg PO BID 10 days #20 caps 09/24/24 Allergies Allergy/AdvReac Type Severity Reaction Status Date / Time ertapenem Allergy Severe Hallucinati Verified 08/09/24 13:18 [facility] Disclaimer: The information contained in this section may have been updated after the patient was seen, as this information can be updated by other users. Medical History (Updated 09/24/24 @ 13:56 by Brooklyn Mcdonald MD) DANY (obstructive sleep apnea) LUKASZ (renal artery stenosis) Right sided weakness Weakness SOB (shortness of breath) on exertion Angina pectoris Hearing loss Cataract History of transient ischemic attack (TIA) Cyst of soft tissue Carotid artery stenosis Left hip pain Neuropathy Sciatic leg pain Surgical History History of hernia repair Hx of heart artery stent History of cholecystectomy History of colonoscopy Family History Other Family history of acute congestive heart failure Social History Smoking Status: Never smoker alcohol intake: never substance use type: denies use current occupational status: other Travel in the last 8 weeks: None household members: family housing: house current occupational exposures/hazards: No caffeine: Yes Other Medical History Have you received the Flu Vaccine for this season: No Have you received the Pneumonia Vaccine: No ROS Obtained: Yes All systems reviewed & no additional complaints except as documented Physical Exam General General appearance: alert and in no apparent distress Head Head exam: normocephalic Eye Eye exam: Present normal appearance and PERRL ENT ENT exam: Present normal exam and normal oropharynx Chest Chest inspection: Present tenderness (no chest wall tenderness, no rashes) Respiratory Respiratory exam: Present other (decreased breath sounds left lung base) Cardiovascular Cardiovascular exam: Present regular rate and normal rhythm Abdominal Exam Abdominal exam: Present soft, tenderness (LUQ, Lent flank, epigastrum) and guarding (LUQ); Absent distention Extremities Exam Extremities exam: Present edema (1+ bilateral pitting lower extremities, no edema upper extremities) and other Back Exam Back exam: Present CVA tenderness (L) Neurological Exam Neurological exam: Present alert and oriented X3 Skin Skin exam: Present warm and dry Medical Decision Making Medical Records Screening: Per USPSTF and CDC recommendations, given the prevalence of disease in our region, it is our hospital?s policy to screen for HIV and viral Hepatitis for all patients aged 18 and over and those with ongoing risk factors. Harman Inquiry Pt receiving controlled substance: No Vital Signs: 09/24/24 10:56 09/24/24 11:21 09/24/24 11:31 Temperature 98.1 F Temperature Source Oral Pulse Rate 80 81 Pulse Rate [Radial] 73 Respiratory Rate 16 Blood Pressure 123/74 159/86 H Blood Pressure [Left Arm] 178/84 H Blood Pressure Mean 93 106 Blood Pressure Mean [Left Arm] 115 Blood Pressure Source Blood Pressure Source [Left Arm] Automatic Cuff Blood Pressure Position Blood Pressure Position [Left Arm] Sitting 02 Sat by Pulse Oximetry 98 99 98 Oxygen Delivery Method Room Air 09/24/24 11:40 09/24/24 11:45 09/24/24 11:50 Temperature Temperature Source Pulse Rate 84 84 78 Pulse Rate [Radial] Respiratory Rate Blood Pressure 176/107 H 160/83 H 153/82 H Blood Pressure [Left Arm] Blood Pressure Mean 130 129 123 Blood Pressure Mean [Left Arm] Blood Pressure Source Blood Pressure Source [Left Arm] Blood Pressure Position Blood Pressure Position [Left Arm] 02 Sat by Pulse Oximetry 98 98 98 Oxygen Delivery Method 09/24/24 12:00 09/24/24 12:10 09/24/24 12:20 Temperature Temperature Source Pulse Rate 76 76 80 Pulse Rate [Radial] Respiratory Rate Blood Pressure 139/70 156/79 H 145/75 H Blood Pressure [Left Arm] Blood Pressure Mean 96 104 98 Blood Pressure Mean [Left Arm] Blood Pressure Source Blood Pressure Source [Left Arm] Blood Pressure Position Blood Pressure Position [Left Arm] 02 Sat by Pulse Oximetry 98 98 97 Oxygen Delivery Method 09/24/24 12:30 09/24/24 12:51 09/24/24 13:00 Temperature Temperature Source Pulse Rate 80 75 78 Pulse Rate [Radial] Respiratory Rate Blood Pressure 133/68 161/85 H 154/83 H Blood Pressure [Left Arm] Blood Pressure Mean 101 110 113 Blood Pressure Mean [Left Arm] Blood Pressure Source Blood Pressure Source [Left Arm] Blood Pressure Position Blood Pressure Position [Left Arm] 02 Sat by Pulse Oximetry 97 97 98 Oxygen Delivery Method 09/24/24 13:10 09/24/24 13:20 09/24/24 14:16 Temperature 98.0 F Temperature Source Oral Pulse Rate 78 72 72 Pulse Rate [Radial] Respiratory Rate 16 Blood Pressure 157/86 H 168/88 H 168/88 H Blood Pressure [Left Arm] Blood Pressure Mean 105 102 Blood Pressure Mean [Left Arm] Blood Pressure Source Automatic Cuff Blood Pressure Source [Left Arm] Blood Pressure Position Sitting Blood Pressure Position [Left Arm] 02 Sat by Pulse Oximetry 99 97 Oxygen Delivery Method Room Air Lab Data Lab Results 09/24/24 11:21: WBC 6.3, RBC 3.66 L, Hgb 10.4 L, Hct 33.4 L, MCV 91.3, MCH 28.4, MCHC 31.1 L, RDW 16.8, Plt Count 173, MPV 10.6 H, Neut % (Auto) 72.9, Lymph % (Auto) 18.5, Graves % (Auto) 5.2, Eos % (Auto) 2.5, Baso % (Auto) 0.6, Neut # (Auto) 4.6, Lymph # (Auto) 1.2, Graves # (Auto) 0.3, Eos # (Auto) 0.2, Baso # (Auto) 0.0, Sodium 137, Potassium 4.2, Chloride 105, Carbon Dioxide 29, Anion Gap 7.2, BUN 20, Creatinine 1.40 H, Estimated Creat Clear 76, Estimated GFR 51 L, Est GFR ( Amer) 61, Glucose 130 H, Calcium 8.8, Magnesium 1.6, Total Bilirubin 0.9, AST 25, ALT 16, Alkaline Phosphatase 80, Troponin I < 0.01, Total Protein 6.6, Albumin 3.6, Globulin 3.0, Albumin/Globulin Ratio 1.2, Lipase 92 09/24/24 13:24: Urine Color Yellow, Urine Appearance Clear, Urine pH 6.0, Ur Specific [place] 1.015, Urine Protein Negative, Urine Glucose (UA) Negative, Urine Ketones Negative, Urine Blood Negative, Urine Nitrate Negative, Urine Bilirubin Negative, Urine Urobilinogen 0.2, Ur Leukocyte Esterase Negative, Urine RBC None, Urine WBC None, Ur Squamous Epith Cells None, Urine Bacteria Trace 09/24/24 11:21 09/24/24 11:21 Orders (Tests/Meds): ED MEDICATIONS Discontinued Medications Generic Name Dose Route Start Last Admin Trade Name Freq PRN Reason Stop Dose Admin Hydromorphone HCl 0.5 mg 09/24/24 11:58 Hydromorphone 2mg/Ml Syringe IV 10/24/24 11:57 Q2HP PRN Severe Pain (7-10) Iopamidol 80 ml 09/24/24 12:37 09/24/24 12:38 Iopamidol-370 (76%);100ml Bottle IV 09/24/24 12:38 80 ml ONCE ONE Administration Sodium Chloride 50 ml 09/24/24 12:37 09/24/24 12:38 0.9 % Sodium Chloride 50 Ml Vial IV 09/24/24 12:38 50 ml ONCE ONE Administration Sodium Chloride 10 ml 09/24/24 12:37 09/24/24 12:38 Sodium Chloride 0.9% 10ml Syr (Rad Only) IV 09/24/24 12:38 10 ml ONCE ONE Administration ORDERS Category Date Time Status CT abdomen pelvis w con Stat Cat Scan 09/24/24 11:[address] angio chest PE protocol Stat Cat Scan 09/24/24 11:40 Completed POCUS Point of Care (ER Only) Stat Exams 09/24/24 11:40 Completed XR chest portable Stat Exams 09/24/24 11:40 Completed Complete Blood Count Auto Diff Stat Lab 09/24/24 11:21 Completed Comprehensive Metabolic Panel Stat Lab 09/24/24 11:21 Completed Lipase Stat Lab 09/24/24 11:21 Completed Magnesium Stat Lab 09/24/24 11:21 Completed Troponin I Q3H Lab 09/24/24 17:45 Ordered Troponin I Stat Lab 09/24/24 11:21 Completed UA [Urinalysis and Microscopic] Stat Lab 09/24/24 13:24 Completed Medical Decision Narrative: In summary, this 69-year-old male presents to the emergency department today with left flank pain. On initial evaluation patient is hypertensive normal heart rate saturating appropriately on room air afebrile no acute distress. Differential diagnosis includes but is not limited to pyelonephritis urolithiasis pancreatitis ACS pneumonia heart failure exacerbation acute urinary retention diverticulitis. Based on these concerns, I ordered CBC CMP magnesium troponin BNP lactate [facility] chest x-ray CT PE CT abdomen pelvis with contrast lipase UA, EKG ECG personally interpreted demonstrates Sinus rhythm normal rate, right axis deviation T wave inversions in III V1 and V3. Patient received 0.5 mg Dilaudid for treatment. Labs personally reviewed demonstrate troponin normal, creatinine 1.4, stable anemia, UA nonactionable. CT imaging personally interpreted demonstrate left lower lobe consolidation consistent with pneumonia. Also incidental renal nodule noted. Informed patient of this nodule recommended outpatient follow-up with primary care provider for further imaging is less likely causing his pain today on exam. On reassessment patient has improvement of symptoms. History and workup most consistent with pneumonia. Patient prescribed Augmentin and doxycycline strict return precautions. Critical Care Critical Care Time Critical Care Time: No
--- NOTE | 2024-09-24 11:40 | CT_ITS ---
FINAL REPORT TECHNIQUE: IV contrast enhanced exam. Coronal and sagittal images were obtained and reviewed. . This study was performed with techniques to keep radiation doses as low as reasonably achievable, (ALARA). Individualized dose reduction techniques using automated exposure control or adjustment of mA and/or kV according to the patient''s size were employed. CLINICAL HISTORY: Left flank pain COMPARISON: 05/05/2023 CT abdomen and pelvis without contrast FINDINGS: Abdomen: There is splenomegaly with the spleen measuring 14.2 x 9.4 cm on axial imaging, previously measured 11.2 x 6.2 cm. A left adrenal mass measuring 2.5 cm is unchanged and probably an adenoma. The liver, pancreas, and right adrenal gland are unremarkable. There is bilateral renal atrophy. Questionable mass in the posterior left mid kidney measuring 17 mm is noted, neoplasm not excluded. There is significantly improved right perinephric hemorrhage. Residual fluid collection measures 7.5 x 6.7 cm and compatible with chronic hematoma. Right renal capsular calcification are noted. No bowel obstruction is present. There is no free air. No fluid collection is seen. There is no adenopathy. Pelvis: There are no changes of appendicitis. No bowel wall thickening is present. There is mild nonspecific bladder wall thickening. The prostate is unremarkable. There is no free fluid. No pelvic mass is seen. IMPRESSION: No evidence of bowel obstruction or acute intra-abdominal inflammatory change. New splenomegaly. Chronic right pelvic perinephric hematoma, significantly improved. Possible left renal mass. If desired, CT with renal mass protocol may be considered. Reviewed, Interpreted and Dictated by Mauricio Lima MD Transcribed by Salome Stokes Authenticated and . [facility]
--- NOTE | 2024-09-24 11:40 | XR_ITS ---
FINAL REPORT CLINICAL HISTORY: Shortness of breath COMPARISON: 05/04/2023 FINDINGS: A single frontal view of the chest was obtained. There is coarse linear density at the left lung base which is new from the prior exam and favored to represent atelectasis. There is also minimal right basilar atelectasis. No pulmonary edema is seen. The patient is status post CABG. Heart size is normal. IMPRESSION: Bibasilar atelectasis, greater on the left. Reviewed, Interpreted and Dictated by Mauricio Lima MD Transcribed by Salome Stokes Authenticated and [facility]
--- NOTE | 2024-09-24 11:40 | CT_ITS ---
FINAL REPORT TECHNIQUE: Thin section axial CT with contrast with multiplanar reconstruction This study was performed with techniques to keep radiation doses as low as reasonably achievable, (ALARA). Individualized dose reduction techniques using automated exposure control or adjustment of mA and/or kV according to the patient's size were employed. CLINICAL HISTORY: Left flank pain COMPARISON: 05/04/2023 CTA chest FINDINGS: CTA CHEST: Pulmonary vessels enhance in normal fashion without evidence of embolism. Thoracic aorta shows no dissection or aneurysm. A left lower lobe infiltrate is present consistent with pneumonia. A small left pleural effusion is noted. There is scattered atelectasis or scar. No right-sided effusion is present. There is no significant pericardial effusion. No mediastinal or hilar adenopathy is present. IMPRESSION: 1. No evidence of pulmonary embolism 2. Left lower lobe infiltrate consistent with pneumonia, with a small left effusion. Reviewed, Interpreted and Dictated by Mauricio Lima MD Transcribed by Isadora Norris Authenticated and [facility]
[2024-09-24 11:49] LABS: Basophils % 0.6 % (0.1-2.0); Eosinophils # 0.2 K/mm3 (0.0-0.4); Eosinophils % 2.5 % (0.1-12.0); Hematocrit 33.4 % (42.0-52.0); Hemoglobin 10.4 g/dL (14.1-18.0); Lymphocytes # 1.2 K/mm3 (0.7-4.5); Lymphocytes % 18.5 % (10-50); Mean Corpuscular HGB Conc 31.1 g/dL (31.8-35.4); Mean Corpuscular Hemoglobin 28.4 pg (27.0-31.2); Mean Corpuscular Volume 91.3 fl (80-94); Mean Platelet Volume 10.6 fl (7.4-10.4); Monocytes # 0.3 K/mm3 (0.1-1.0); Monocytes % 5.2 % (1.7-9.3); Neutrophils # 4.6 K/mm3 (1.8-7.8); Neutrophils % 72.9 % (37.0-80.0); Platelet Count 173 K/mm3 (142-424); Red Blood Count 3.66 M/mm3 (4.60-6.20); Red Cell Distribution Width 16.8 % (11.5-17.5); White Blood Count 6.3 K/mm3 (4.8-10.8)
--- NOTE | 2024-09-24 11:52 | ECG_ITS ---
APPROVED REPORT Exam: Resting ECG HR:74 bpm ECG Measurements Heart Rate 74 AXES GA 174 P 7 QRSd 150 QRS 136 QT 438 T -7 QTc 465 Conclusion Sinus rhythm normal rate, right axis deviation T wave inversions in III V1 and V3 Electronically signed by : Brooklyn Mcdonald, 09/24/2024 15:15:01
[2024-09-24 11:54] LABS: Alanine Aminotransferase 16 U/L (12-78); Albumin Level 3.6 g/dl (3.5-5.0); Albumin/Globulin Ratio 1.2 (1.1-1.8); Alkaline Phosphatase 80 U/L (38-126); Anion Gap 7.2 mEq/L (5-15); Aspartate Amino Transferase 25 U/L (17-59); Bilirubin,Total 0.9 mg/dl (0.2-1.3); Blood Urea Nitrogen 20 mg/dl (9-20); Calcium 8.8 mg/dl (8.4-10.2); Carbon Dioxide 29 mmol/L (22.0-30.0); Chloride 105 mmol/L (98-107); Creatinine Clearance Estimated 76 mL/min (50-200); Estimated Glomerular Filt Rate 51 ml/min (>60); GFR (African American) 61 ML/MIN (>60); Glucose 130 mg/dl (74-100); Lipase 92 U/L (23-300); Magnesium 1.6 mg/dl (1.6-2.3); Potassium 4.2 mmoL/L (3.5-5.1); Sodium 137 mmol/L (136-145); Total Protein,Serum 6.6 g/dl (6.3-8.2)
[2024-09-24 12:07] LABS: Troponin I < 0.01 ng/ml (0.00-0.034)
[2024-09-24] MEDS: IOPAMIDOL-370 (76%);100ML BOTTLE 80 ML IV (12:38)
[2024-09-24] MEDS: SODIUM CHLORIDE 0.9% 10ML SYR (RAD ONLY) 10 ML IV (12:38)
[2024-09-24] MEDS: 0.9 % SODIUM CHLORIDE 50 ML VIAL IV (12:38)
[2024-09-24 13:33] LABS: Microscopic, Urine URINE MICROSCOPIC (MICROSCOPIC)
[2024-09-24 13:36] LABS: Appearance,Urine CLEAR (Clear); Bilirubin,Urine Negative (Negative); Blood, Urine Negative (Negative); Color,Urine YELLOW (Yellow); Glucose,Urine (UA) Negative (Negative); Ketones,Urine Negative (Negative); Leukocyte Esterase,Urine Negative (Negative); Nitrate,Urine Negative (Negative); Protein,Urine Negative (Negative); Specific Gravity, Urine 1.015 (1.005-1.030); Urobilinogen,Urine 0.2 EU/dl (0.2)
[2024-09-24 13:58] LABS: Bacteria,Urine Trace /lpf
== END 2024-09-24 14:16 | disposition home or self-care (01) ==
PROVIDERS: Emergency Provider Student in an Organized Health Care Education/Training Program; PCP Internal Medicine
DX: J18.9 Pneumonia, unspecified organism (principal)
CPT/HCPCS: 71045; 71275; 74177; 80053; 81001; 83690; 83735; 84484; 85025; 93005; 96374; 99285; J3490; Q9967

== ENCOUNTER 2024-10-13 14:46 | Outpatient (CLI) | payer MEDICARE, SELFPAY ==
--- NOTE | 2024-10-13 14:52 | XR_ITS ---
FINAL REPORT CLINICAL HISTORY: LT SHOULDER PAIN PT CANNOT RAISE LT SHOULDER WITHOUT PAIN FINDINGS: LEFT SHOULDER 3 views of the left shoulder were obtained. There is no acute fracture or dislocation. Visualized joint spaces are normally aligned. Soft tissues are unremarkable. IMPRESSION: No acute bony abnormality. Reviewed, Interpreted and Dictated by Mauricio Lima MD Transcribed by Gladis Parker Authenticated and [facility]
--- OUTSIDE RECORDS SUMMARY | 2024-10-14 22:27 | XMS_ITS ---
Author Organization [facility] , [facility] Address [address] [place] [phone] Phone Care Team Providers Care Non Categorical Preschool Teacher Name Role Phone Tre HEADLEY, Govind Lau [facility] [phone] Plan of Treatment No Plan of Treatment Recorded Assessments Includes: Assessments for all patient encounters No Assessments Recorded Medical Equipment - Implanted Devices Includes: Current and historical Devices No Medical Equipment Recorded Medications Administered Includes: Administered Medications in patient's chart No Administered Medications Recorded Results Includes: Results from 10/15/2023 through 10/14/2024 No Results Recorded For Specified Dates History of Present Illness History of Present Illness not supported for this document type No History of Present Illness Recorded Social History No Social History Recorded - Smoking Status Unknown Medical History Includes: Medical History in patient's chart No Medical History Recorded Family History Includes: Family History in patient's chart No Family History Recorded Review of Systems Review of Systems not supported for this document type No Review of Systems Recorded Mental Status No Mental Status Recorded Functional Status No Functional Status Recorded Physical Exam Physical Exam not supported for this document type No Physical Exam Recorded Insurance Includes: Active Insurance Policies Plan Name Member ID Group # Subscriber Relationship Effect yara Dates 1 - [employer]IC[employer] [id number] Johnathan Parham Self Clinical Notes Includes: Signed Clinical Notes starting from 06/20/2022 No Clinical Notes Recorded
--- OUTSIDE RECORDS SUMMARY | 2024-10-14 22:27 | XMS_ITS ---
Care Plan - [facility], [facility] Created on: October 14, 2024 Johnathan Parham : 1955 Sex: Male Author Organization [facility] , [facility] Address [address] [place] [phone] Phone Care Team Providers Care Contract Specialist Name Role Phone Tre HEADLEY, Govind Lau Unavailable
== END 2024-10-13 23:59 | disposition home or self-care (01) ==
LOC: RAD 14:47
PROVIDERS: PCP Nurse Practitioner Family; Visit Provider Nurse Practitioner Family
DX: M25.512 Pain in left shoulder (principal)
CPT/HCPCS: 73030

== ENCOUNTER 2024-10-20 07:37 | Outpatient (CLI) | payer MEDICARE, SELFPAY ==
--- OUTSIDE RECORDS SUMMARY | 2024-10-20 07:40 | XMS_ITS | Continuity of Care Document ---
Author Organization [facility] & [place], [facility] [address] Address [address] [place] [address] Care Team Providers Care Shredder Operator Name Role Phone LEILA MENA Primary Care Provider Assessment No assessment recorded. Plan of Treatment Reminders Order Date Submit Date Provider Last Modified By Organization Details Last Modified Time Details Appointments None record ed. Lab None record ed. Referral None record ed. Procedures None record ed. Surgeries None record ed. Imaging None record ed. Medication Orders None record ed. Patient TargetsNo targets recorded. Patient InstructionsNo instructions recorded. Reason for Referral None Reported. Problems Name Problem SNOMED Code Status Onset Date Resolution Date Notes Provider Name and Address Organization Details Recorded Time Sensorineural hearing loss [id number] Active 2022 SOCORRO REYNOSO, AUD [address] [facility], [place], [address] , [facility] & [place] 3 10:26:08 Problem Notes None recorded. Medical Equipment None Reported. Allergies No known drug allergies Medications Name Sig Start Date Stop Date Status Note LastModified by Organization Details LastModified Time Santyl 250 unit/gram topical ointment APPLY OINTMENT TOPICALLY TO WOUND DAILY (WOUND SIZE) active Not Available Not Available No t Available furosemide 40 mg tablet 04/02 completed Not Available Not Available Not Available fluconazole 100 mg tablet TAKE 1 TABLET BY MOUTH ONCE DAILY FOR 7 DAYS active Not Available Not Available No t Available atorvastati n 40 mg tablet active Not Available Not Available Not Available metformin 500 mg tablet TAKE 1 TABLET BY MOUTH TWICE DAILY active Not Available Not Available No t Available atorvastati n 80 mg tablet TAKE 1 TABLET BY MOUTH ONCE DAILY active Not Available Not Available No t Available carvedilol 25 mg tablet Take 1 tablet twice a day by oral route. active Not Available Not Available No t Available carvedilol 12.5 mg tablet TAKE 1 TABLET BY MOUTH TWICE DAILY MUST ADMINISTE R WITH MEAL/FOOD active Not Available Not Available No t Available ipratropium 0.5 mg-albutero l 3 mg (2.5 mg base)/3 mL nebulizatio n soln USE 3 ML IN NEBULIZER EVERY 6 HOURS NEEDED FOR WHEEZING 11/06 completed Not Available Not Available Not Available ammonium lactate 12 % lotion APPLY GENEROUS AMOUNT TOPICALLY TO DRY SKIN ON ARMS AND ELGS EVERY NIGHT active Not Available Not Available No t Available Carafate 1 gram tablet Take 1 tablet 4 times a day by oral route. active Not Available Not Available No t Available azithromyci n 250 mg tablet TAKE 2 TABLETS BY MOUTH ON DAY 1, AND THEN TAKE 1 TABLET BY MOUTH ONCE A DAY ON DAY 2 THROUGH DAY 5 11/06 completed Not Available Not Available Not Available cephalexin 250 mg capsule Take 1 capsule by mouth once daily 04/02 completed Not Available Not Available Not Available hydrocodone 5 mg-acetamin ophen 325 mg tablet TAKE 1 TABLET BY MOUTH EVERY 6 HOURS NEEDED FOR PAIN active Not Available Not Available No t Available ondansetron HCl 8 mg tablet TAKE 1 TABLET BY MOUTH EVERY 6 HOURS NEEDED FOR NAUSEA AND VOMITING active Not Available Not Available No t Available prednisone 20 mg tablet TAKE 1 TABLET BY MOUTH TWICE DAILY 04/02 completed Not Available Not Available Not Available isosorbide mononitrate ER 30 mg tablet,exte nded release 24 hr active Not Available Not Available Not Available fluorouraci l 5 % topical cream APPLY TOPICALLY TO FOREARMS AND TOP OF HANDS TWICE DAILY FOR 14 DAYS. active Not Available Not Available No t Available clopidogrel 75 mg tablet TAKE 1 TABLET BY MOUTH ONCE DAILY active Not Available Not Available No t Available ciprofloxac in 250 mg tablet TAKE 1 TABLET BY MOUTH TWICE DAILY FOR 14 DAYS active Not Available Not Available No t Available levofloxaci n 250 mg tablet TAKE 1 TABLET BY MOUTH ONCE DAILY 04/02 completed Not Available Not Available Not Available omeprazole 40 mg capsule,del ayed release TAKE 1 CAPSULE BY MOUTH ONCE DAILY active Not Available Not Available No t Available triamcinolo ne acetonide 0.1 % topical cream APPLY A THIN LAYER TOPICALLY TO RED AREAS ON FACE AFTER THOROUGH CLEANSING TWICE DAILY active Not Available Not Available No t Available spironolact one 25 mg tablet Take 1 tablet every day by oral route. active Not Available Not Available No t Available levothyroxi ne 75 mcg tablet TAKE 1 TABLET BY MOUTH ONCE DAILY active Not Available Not Available No t Available diazepam 2 mg tablet active Not Available Not Available No t Available benzonatate 100 mg capsule TAKE 1 CAPSULE BY MOUTH TWICE DAILY NEEDED FOR COUGH 04/02 completed Not Available Not Available Not Available cephalexin 500 mg capsule TAKE 1 CAPSULE BY MOUTH 4 TIMES DAILY FOR 7 DAYS active Not Available Not Available No t Available hydralazine 100 mg tablet Take 1 tablet twice a day by oral route. active Not Available Not Available No t Available pantoprazol e 40 mg tablet,steve yed release active Not Available Not Available Not Available trazodone 150 mg tablet TAKE 1 TABLET BY MOUTH AT BEDTIME NIGHTLY NEEDED FOR SLEEP active Not Available Not Available No t Available lidocaine 5 % topical patch active Not Available Not Available Not Available promethazin e 25 mg tablet TAKE 1 TABLET BY MOUTH EVERY 6 HOURS NEEDED FOR NAUSEA AND VOMITING active Not Available Not Available No t Available Humulin 70/30 U-100 Insulin 100 unit/mL subcutaneou s suspension active Not Available Not Available N ot Available nystatin-tr iamcinolone 100,000 unit/g-0.1 % topical cream APPLY TOPICALLY TO AFFECTED AREA TWICE A DAY 04/02 completed Not Available Not Available Not Available nitroglycer in 0.4 mg sublingual tablet DISSOLVE ONE TABLET UNDER THE TONGUE EVERY 5 MINUTES NEEDED FOR CHEST PAIN. DO NOT EXCEED A TOTAL OF 3 DOSES IN 15 MINUTES active Not Available Not Available No t Available omeprazole 20 mg capsule,del ayed release TAKE 1 CAPSULE BY MOUTH ONCE DAILY active Not Available Not Available No t Available doxazosin 4 mg tablet TAKE 1 TABLET BY MOUTH ONCE DAILY active Not Available Not Available No t Available irbesartan 75 mg tablet TAKE 1 TABLET BY MOUTH ONCE DAILY active Not Available Not Available No t Available gabapentin 100 mg capsule TAKE 1 CAPSULE BY MOUTH THREE TIMES DAILY active Not Available Not Available No t Available insulin lispro (U-100) 100 unit/mL subcutaneou s solution INJECT INSULIN PER SLIDING SCALE BEFORE MEALS AND AT BEDTIME. BLOOD SUGAR LESS THAN 60, CALL MD. BG 150-199, GIVE 1 UNIT. BG 200-249, 2 UNITS. BG 250-299, 3 UNITS. BG 300-349, 4 UNITS. BG 350-399, 5 UNITS. BG OVER 399 GIVE 5 UNITS AND CALL MD. active Not Available Not Available No t Available levofloxaci n 500 mg tablet TAKE 1 TABLET BY MOUTH ONCE DAILY 11/06 completed Not Available Not Available Not Available levofloxaci n 750 mg tablet TAKE 1 TABLET BY MOUTH ONCE DAILY FOR 5 DAYS 11/06 completed Not Available Not Available Not Available albuterol sulfate HFA 90 mcg/actuati on aerosol inhaler active Not Available Not Available Not Available ondansetron 4 mg disintegrat ing tablet DISSOLVE 1 TABLET IN MOUTH EVERY 6 HOURS NEEDED FOR NAUSEA AND VOMITING active Not Available Not Available No t Available cefdinir 300 mg capsule TAKE 1 CAPSULE BY MOUTH TWICE DAILY FOR 10 DAYS 11/06 completed Not Available Not Available Not Available lisinopril 2.5 mg tablet TAKE 1 TABLET BY MOUTH ONCE DAILY active Not Available Not Available No t Available doxycycline hyclate 100 mg tablet TAKE 1 TABLET BY MOUTH TWICE DAILY UNTIL 04/03/24 active Not Available Not Available No t Available finasteride 5 mg tablet TAKE 1 TABLET BY MOUTH ONCE DAILY active Not Available Not Available No t Available amoxicillin 875 mg-potassiu m clavulanate 125 mg tablet TAKE 1 TABLET BY MOUTH TWICE DAILY UNTIL 04/03/24 active Not Available Not Available No t Available amoxicillin 500 mg-potassiu m clavulanate 125 mg tablet TAKE 1 TABLET BY MOUTH TWICE DAILY FOR 10 DAYS active Not Available Not Available No t Available azithromyci n 500 mg tablet TAKE 1 TABLET BY MOUTH ONCE DAILY FOR 3 DAYS 11/06 completed Not Available Not Available Not Available escitalopra m 20 mg tablet TAKE 1 TABLET BY MOUTH ONCE DAILY active Not Available Not Available No t Available rosuvastati n 40 mg tablet Take 1 tablet every day by oral route. active Not Available Not Available No t Available metoprolol tartrate 25 mg tablet active Not Available Not Available No t Available Viri-Geraldine 0.8 mg tablet TAKE 1 TABLET BY MOUTH ONCE DAILY active Not Available Not Available No t Available nitrofurant oin monohydrate /macrocryst als 100 mg capsule TAKE 1 CAPSULE BY MOUTH EVERY 12 HOURS FOR 7 DAYS 04/02 completed Not Available Not Available Not Available duloxetine 20 mg capsule,del ayed release TAKE 1 CAPSULE BY MOUTH ONCE DAILY active Not Available Not Available No t Available aspirin active Not Available Not Avail able Not Available levothyroxi ne active Not Available Not Available Not Available omeprazole 11/06 completed Not Available Not Available Not Available ranolazine ER 500 mg tablet,exte nded release,12 hr 11/06 completed Not Available Not Available Not Available Symbicort 80 mcg-4.5 mcg/actuati on HFA aerosol inhaler INHALE 1 PUFF BY MOUTH 4 TIMES DAILY NEEDED FOR SHORTNESS OF BREATH OR WHEEZING. 04/02 completed Not Available Not Available Not Available ranolazine ER 1,000 mg tablet,exte nded release,12 hr active Not Available Not Available Not Available oseltamivir 30 mg capsule active Not Available Not Available Not Available Dificid 200 mg tablet active Not Available Not Available No t Available ipratropium 0.5 mg-albutero l 2.5 mg/2.5 mL solution for nebulizatio n Inhale by inhalatio n route. 04/02 completed Not Available Not Available Not Available Eliquis 5 mg tablet TAKE 1 TABLET BY MOUTH TWICE DAILY active Not Available Not Available No t Available Accu-Chek Guide test strips active Not Available Not Available Not Available ranolazine ER 500 mg granules,ex tended release in packet Take 1 packet twice a day by oral route. 04/07 completed Not Available Not Available Not Available Vitals None Recorded Social History Question Answer Notes LastModified by Organizat ion Details LastModified Time Tobacco Smoking Status Never Smoker Lesa Bran [facility] [place] - [facility] & [place] 11/06/2022 13:01:36 Do You Use Any Illicit Or Recreational Drugs? No [email or web address] Information not available 10/17/2022 Has Tobacco Cessation Counseling Been Provided? No [email or web address] Information not available 04/02/2023 Do You Or Have You Ever Used Any Other Forms Of Tobacco Or Nicotine? No [email or web address] Information not available 04/02/2023 Sex: Unknown Functional Status None recorded. Mental Status None recorded. Family History Nothing Reported Notes:Mother - Fath er - Medical History No medical history recorded. Past Encounters Encounter ID Performer Location Encounter Start Date Encounter Closed Date Diagnosis/Indication Diagnosis SNOMED-CT Code Diagnosis ICD10 Code Diagnosis Note [id number] CAITLYN POTTS [facility] [address] [place] [address] 08/31/2024 14:41:51 08/31/2024 15:05:55 Sensorineural hearing loss 08789846 H90.3 [id number] [facility] POT[facility] [id number] [facility] [place] [address] 09/22/2024 11:38:24 09/22/2024 11:43:16 Sensorineural hearing loss [id number] H90.3 Health Concerns Section Related Observation LastModified by Organization Detai ls LastModified Time None Recorded Concern Status LastModified by Organization Details LastModified Time None Recorded Payers Encounter Date Sequence Insurance Name Policy Number Policy Amaro Covered Member ID Amaro Member ID Guarantor Name 09/22/2024 1 [employer] - [employer] (MEDICARE REPLACEMENT HMO) Johnathan Parham [id number] Johnathan Parham Notes Date Note Type Note Provider Name and Address Organization Details Recorded Time 09/22/2024 text/html Patient was seen today for a hearing aid service. Cleaned and adjusted hearing aids this date. CAITLYN POTTS [address] , [place], [address], [facility] & [place] 09/22/2024 11:47:14
--- OUTSIDE RECORDS SUMMARY | 2024-10-20 07:40 | XMS_ITS ---
Author Organization [facility] , [facility] Address [address] [place] [phone] Phone Care Team Providers Care Grocery Manager Name Role Phone Tre HEADLEY, Govind Lau [facility] [phone] Plan of Treatment No Plan of Treatment Recorded Assessments Includes: Assessments for all patient encounters No Assessments Recorded Medical Equipment - Implanted Devices Includes: Current and historical Devices No Medical Equipment Recorded Medications Administered Includes: Administered Medications in patient's chart No Administered Medications Recorded Results Includes: Results from 10/21/2023 through 10/20/2024 No Results Recorded For Specified Dates History [...] Relationship Effect yara Dates 1 - [employer] [id number] Johnathan Parham Self Clinical Notes Includes: Signed Clinical Notes starting from 06/20/2022 No Clinical Notes Recorded
--- OUTSIDE RECORDS SUMMARY | 2024-10-20 07:40 | XMS_ITS ---
Care Plan - [facility], [facility] Created on: October 20, 2024 Johnathan Parham : 1955 Sex: Male Author Organization [facility] Address [address] [place] [phone] Phone Care Team Providers Care Knitter Helper Name Role Phone Tre HEADLEY, Govind Lau Unavailable
--- OUTSIDE RECORDS SUMMARY | 2024-10-20 07:40 | XMS_ITS | Data Portability ---
Author Organization [facility] EVANGELINA Duckworth KEARNEY CLOSED Address [address] [place] [address] Assessment No assessment recorded. Plan of Treatment Reminders Order Date Submit Date Provider Last Modified By Organization Details Last Modified Time Details Appointments None record ed. Lab None record ed. Referral None record ed. Procedures None record ed. Surgeries None record ed. Imaging None record ed. Medication Orders None record ed. Patient TargetsNo targets recorded. Patient Instructions Encounter Date Encounter Id Patient Instructions Last Modified By Organization Details Last Modified Time 05/03/2019 [id number] Trigger Finger-LC [id number] [id number] Not available 01/10/2022 03:47:06 CARPAL TUNNEL SYNDROME-LC [id number] Not available 01/10/2022 03:47:28 05/31/2019 [id number] Routine post-op care and restrictions are discussed with the patient, questions answered. Follow-up in 4 weeks, sooner, prn. [email or web address] Not available 05/31/2019 14:55:37 06/25/2019 [id number] He can resume full, unrestricted use of his left hand. He is reassured that the soreness will continue to improve and should be fully resolved by six months after surgery. Sensation will also continue to improve. He will call to schedule either a cortisone injection for the left index finger, or surgical treatment, otherwise follow-up as needed. yoly Not available 06/25/2019 13:02:07 yoly Not available 2018 13:02:05 Reason for Referral None Reported. Results Created Date Observation Date Name Description Value Unit Range Abnormal Flag Note LastModifiedBy Organization Detail LastModifiedTime 04/29/20 19 04/29/2019 urina lysis , dipst ick, auto Unknown Analyte Yellow Not Available [facility] With [address], [place], [address], 04/29/2019 14:28:47 04/29/2004/29/2019 urina lysis , dipst ick, auto Unknown Analyte Clear Not Available [facility], [facility] Extended Services With [address] [place], [address], 04/29/2019 14:28:47 04/29/2004/29/2019 urina lysis , dipst ick, auto Unknown Analyte 1.010 Not Available [facility], [facility] Extended Services With [address], [place], [address], 04/29/2019 14:28:47 04/29/20 19 04/29/2019 urina lysis , dipst ick, auto Unknown Analyte 1.003 - 1.035 Not Available [facility] Extended Services With [address], [place], [address], 04/29/2019 14:28:47 04/29/2004/29/2019 urina lysis , dipst ick, auto Unknown Analyte 5.0 Not Available [facility], [facility] Extended Services With [address] [place], [address], 04/29/2019 14:28:47 04/29/2004/29/2019 urina lysis , dipst ick, auto Unknown Analyte 5.0 - 8.0 Not Available [facility] Extended Services With [address] [place], [address], 04/29/2019 14:28:47 04/29/20 19 04/29/2019 urina lysis , dipst ick, auto Unknown Analyte Negati ve Not Available [facility] With [address] [place], [address], 04/29/2019 14:28:47 04/29/2004/29/2019 urina lysis , dipst ick, auto Unknown Analyte Negati ve Not Available [facility] Extended Services With [address], [place], [address], 04/29/2019 14:28:47 04/29/2004/29/2019 urina lysis , dipst ick, auto Unknown Analyte Negati ve Not Available [facility] Extended [facility] With [address], [place], [address], 04/29/2019 14:28:47 04/29/2004/29/2019 urina lysis , dipst ick, auto Unknown Analyte Negati ve Not Available [facility] Extended Services With [address], [place], [address], 04/29/2019 14:28:47 04/29/2004/29/2019 urina lysis , dipst ick, auto Unknown Analyte Negtiv e Not Available [facility] Extended Services With [address], [place], [address], 04/29/2019 14:28:47 04/29/2004/29/2019 urina lysis , dipst ick, auto Unknown Analyte Negati ve - Trace Not Available [facility] Extended Services With [address], [place], [address], 04/29/2019 14:28:47 04/29/2004/29/2019 urina lysis , dipst ick, auto Unknown Analyte >1000 mg/dl Not Available [facility] Extended [facility] With [address], [place], [address], 04/29/2019 14:28:47 04/29/2004/29/2019 urina lysis , dipst ick, auto Unknown Analyte Normal Not Available [facility], 1926–[facility] Extended Services With [address], [place], [address], 04/29/2019 14:28:47 04/29/2004/29/2019 urina lysis , dipst ick, auto Unknown Analyte Negati ve Not Available [facility] Extended Services With [address], [place], [address], 04/29/2019 14:28:47 04/29/2004/29/2019 urina lysis , dipst ick, auto Unknown Analyte Negati ve Not Available [facility] Extended Services With [address], [place], [address], 04/29/2019 14:28:47 04/29/2004/29/2019 urina lysis , dipst ick, auto Unknown Analyte Normal Not Available [facility], [facility] Extended Services With [address], [place], [address], 04/29/2019 14:28:47 04/29/2004/29/2019 urina lysis , dipst ick, auto Unknown Analyte Normal - 1mg/dl Not Available [facility] Extended Services With [address], [place], [address], 04/29/2019 14:28:47 04/29/2004/29/2019 urina lysis , dipst ick, auto Unknown Analyte Negati ve Not Available [facility] Extended Services With [address], [place], [address], 04/29/2019 14:28:47 04/29/2004/29/2019 urina lysis , dipst ick, auto Unknown Analyte Negati ve Not Available [facility] Extended Services With [address], [place], [address], 04/29/2019 14:28:47 04/29/2004/29/2019 urina lysis , dipst ick, auto Unknown Analyte Negati ve Not Available [facility] Extended Services With [address], [place], [address], 04/29/2019 14:28:47 04/29/20 19 04/29/2019 urina lysis , dipst ick, auto Unknown Analyte Negati ve Not Available [facility] Extended Services With [address], [place], [address], 04/29/2019 14:28:47 04/29/20 19 04/29/2019 urina lysis , dipst ick, auto Unknown Analyte Clean Catch Not Available [facility] Extended Services With [address], [place], [address], 04/29/2019 14:28:47 04/29/2004/29/2019 urina lysis , dipst ick, auto Unknown Analyte Automa rock Not Available [facility] Extended Services With [address], [place], [address], 04/29/2019 14:28:47 04/05/20 19 04/05/2019 XR, hand, 3 or more view [place] [facility] [place] [address] [place] [id number] Patien t Name: JOANNA harper : 1954 Yolanda harper 21 Orderi ng Provid er: EZEKIEL LU Y EXAM DATE: 2018 EXAM: XR NALLELY HANDS 3VWS HISTOR Y: Bilate ral hand pain. COMPAR STEPHAN: None. FINDIN GS: The bones of the left and right hand are normal in alignm ent. There is no eviden ce of fractu re. There are mild degene rative change s. There are minima l to mild degene rative change s in the DIP joints . There are minima l to mild degene rative change s in the metaca rpopha langea l joints and the base of the left and right thumb. IMPRES ELIO: 1. There are mild degene rative change s in the left and right hand. Interp reted By: Quirino moore MD Electr onical ly Signed By: Quirino moore MD on 019 10:29 AM [id number] [facility] [place] [address] , [place], [address], 01/10/2022 03:50:52 05/03/20 19 05/03/2019 nerve condu ction study /EMG, upper extre mity (PROC ) No observ ation record ed. [facility] [address], [place], [address], 05/04/2019 11:07:20 Result Notes None recorded. Problems No Known Problems Procedures Surgical History Date Name Laterality Status Provider Name and Address Organization Details Recorded Time 05/03/20 19 Electromyography (EMG) with Nerve Conduction Study (NCV) completed Sowmya Parisi (Nicky) [facility] 05/03/2019 14:20:26 04/05/20 19 Injection Trigger Finger Ortho completed MEHNAZ BETANCOURT MD [address] [place], [address], [facility] 04/05/2019 09:52:14 Coronary artery graft completed ALISTAIR VEGA PA-C [address] [place], [address], [facility] 05/05/2019 16:19:51 Cholecystectomy completed ALISTAIR VEGA PA-C [address] [place], [address], [facility] 05/05/2019 16:19:45 arthroscopy of knee completed ELENI VEGA PA-C [address] [place], [address], [facility] 05/05/2019 16:20:16 carotid endarterectomy completed ALISTAIR VEGA PA-C [address] [place], [address], [facility] 05/05/2019 16:20:34 extraction of cataract completed ALISTAIR VEGA PA-C [address] [place], [address], [facility] 05/05/2019 16:20:55 Imaging Results Imaging Date Name Status LastModified by Organiz ation Details LastModified Time 04/05/2019 XR, hand, 3 or more view completed [id number] [address] [facility] [place] [address] , [place], [address], 01/10/2022 03:50:52 05/03/2019 nerve conduction study/EMG, upper extremity (PROC) completed [facility] [place] [address], [place], [address], 05/04/2019 11:07:20 Procedure Notes None recorded. Medical Equipment None Reported. Allergies Allergen ID Allergen Name Allergen Category Reaction Reaction Severity Criticality Documentation Date Start Date Code Code System Note Provider Name and Address Organization Details Recorded Time 538619 Iodinated contrast media (substanc e) medicatio n Not available Not available Not available 10/07/2018 52662 2003 SNOMED Nat Lora [facility] 9 10:21:43 Medications Name Sig Start Date Stop Date Status Note LastModified by Organization Details LastModified Time Flomax 0.4 mg capsule Take 1 capsule every day by oral route for 30 days. 2018 active Not Available Not Available Not Avai lable carvedilol 25 mg tablet Take 1 tablet twice a day by oral route. active Not Available Not Available No t Available oxybutynin chloride ER 10 mg tablet,exte nded release 24 hr Take 1 tablet every day by oral route for 30 days. 2018 active Not Available Not Available Not Avai lable clopidogrel 75 mg tablet Take 1 tablet every day by oral route. active Not Available Not Available No t Available tramadol 50 mg tablet TAKE 1 TABL PO Q 4-6 HRS PRN FOR UNCONTROL LED PAIN 06/25 completed Not Available Not Available Not Available levothyroxi ne 75 mcg tablet Take 1 tablet every day by oral route. active Not Available Not Available No t Available isosorbide dinitrate 30 mg tablet Take 1 tablet 3 times a day by oral route. active Not Available Not Available No t Available dexamethaso ne 1 mg tablet Take 1 tablet as needed by oral route at bedtime for 1 day. 2018 active Not Available Not Available Not Avai lable amlodipine 10 mg tablet Take 1 tablet every day by oral route. active Not Available Not Available No t Available bumetanide 0.5 mg tablet Take 1 tablet every day by oral route. active Not Available Not Available No t Available Neurontin 100 mg capsule TAKE 1 CAPSULE PO QHS FOR 1 WEEK FOR POST OP PAIN 06/25 completed Not Available Not Available Not Available pioglitazon e 30 mg tablet TAKE 1/2 TABLET (30 MG) BY ORAL ROUTE ONCE DAILY active Not Available Not Available No t Available losartan 100 mg tablet Take 1 tablet every day by oral route. active Not Available Not Available No t Available Asprin Ec Low Dose 81 mg tablet,steve yed release Take 1 tablet every day by oral route. active Not Available Not Available No t Available potassium gluconate 595 mg (99 mg) tablet Take 1 tablet every day by oral route. active Not Available Not Available No t Available glipizide ER 10 mg 24 hr tablet,exte nded release Take 1 tablet twice a day by oral route. 04/29 completed Not Available Not Available Not Available rosuvastati n 40 mg sprinkle capsule Take 1 capsule every day by oral route. active Not Available Not Available No t Available Vitals Date Recorded Body height Body mass index (BMI) Body weight Provider Name and Address Organization Details Last Updated DateTime 05/03/2019 182.88 cm 42.7 kg/m2 316499.6 g Shauna Arenas [facility] 05/03/2019 14:41:57 Date Recorded Body height Body mass index (BMI) Body weight Provider Name and Address Organization Details Last Updated DateTime 05/31/2019 182.88 cm 42.7 kg/m2 952321.6 g Becka Guzman [facility] 05/31/2019 14:39:24 Date Recorded Body height Body mass index (BMI) Body weight Systolic blood pressure Diastolic blood pressure Provider Name and Address Organization Details Last Updated DateTime 06/25/2019 182.88 cm 42.7 kg/m2 675473.6 g 138 mm[Hg] 84 mm[Hg] Sowmya Gordon [facility] 9 10:14:45 Social History Question Answer Notes LastModified by Organizat ion Details LastModified Time Tobacco Smoking Status [facility] 10/07/2018 10:28:52 What Is Your Level Of Alcohol Consumption? None [email or web address] Information not available 04/05/2019 What Is Your Level Of Caffeine Consumption? Occasional [email or web address] Information not available 04/05/2019 Are You Currently Employed? No [email or web address] Information not available 04/05/2019 Which Of Your Hands Is Dominant? Right [email or web address] Information not available 04/05/2019 Marital Status [email or web address] Informatio n not available 04/05/2019 What Was The Date Of Your Most Recent Tobacco Screening? 10/07/2018 Information not available 08/24/2019 Sex: Unknown Functional Status None recorded. Mental Status None recorded. Family History Relationship Description Onset Age of this Age Resolved Age Notes LastModified by Organization Details LastModified Time Unspecified Relation Diabetes mellitus [email or web address] Not available 2018 14:19:23 Unspecified Relation Kidney disease [email or web address] Not available 2018 14:19:29 Medical History Condition Response Gout Y COPD N Arthritis Y Blood Clot N Cancer N Stroke Y Kidney Disease Y Heart Conditions Y Bleeding Disorder N Genetic Disorder N AIDS/HIV N Asthma N Included as Review of Systems Y Anxiety/Depression N Hernia Y Glaucoma N Hypothyroidism Y Anesthesia Complications N Blood Thinners Y Alcohol Overuse/Alcohol Abuse N High Cholesterol Y Liver Disease Y Allergies/Hayfever Y Heart Attack ([place]) Y Diabetes Y Sleep Apnea Y Hypertension Y Past Encounters Encounter ID Performer Location Encounter Start Date Encounter Closed Date Diagnosis/Indication Diagnosis SNOMED-CT Code Diagnosis ICD10 Code Diagnosis Note [id number] JOSE ALBERTO IRWIN MD ENDOCRINO [facility] [address] [place] [address] 10/07/2018 10:01:10 10/07/2018 11:32:51 Benign neoplasm of left adrenal gland 5253739239 29365 D35.02 63-year-ol d male with hypertensi on, hyperlipid emia, type 2 diabetes and primary hypothyroi dism Seen in the office today in regards to left adrenal nodule evaluation further management . Incidental ly found to have 2.5 cm left adrenal nodule consistent with adenoma. Report and upon reviewing images. He is known to be diabetic and has hypertensi on. History we had a detailed discussion about adrenal nodule frequency, importance of answering to questions related to the risk of cancer and whether it's functionin g or not. Based on reviewing his CT report and images slightly and adenoma and I would like to proceed with laboratory hormonal workup as detailed below for evaluation regarding hormonal excess. Reviewing 24 hour urinary collection in August 2018 showed normal cortisol and Elevated normetanep hrine levels. Plasma renin was elevated at 16 with low aldosteron e. I would like to proceed with Plasma fractionat ed metanephri lion, 1 mg overnight dexamethas one suppressio n test and repeat plasma aldosteron e/PRA. Further management to be determined based on laboratory test results. Patient verbalized understand ing and agreed with the above mentioned plan of care. I would like to thank Dr. Szymanski for the opportunit y to participat e in the care of this patient. [id number] [facility] [place] [address] [address] 04/05/2019 09:21:31 04/05/2019 10:31:29 Acquired trigger finger 6446830 M65.30 Right small finger, injection performed today Pain in finger 37045877 M79.645 Left index finger, we will obtain x-rays. It might be just severe carpal tunnel syndrome but focal tenderness does not quite make sense with Carpal bowen suzi syndrome 07839078 G56.03 Suspect bilateral carpal tunnel syndrome by history, has nocturnal paresthesi as, History of diabetes. This may be contributi ng to some of his symptoms. [id number] GERHARD KOTHARI MD [facility] [address] [place] [address] 04/29/2019 13:42:04 05/24/2019 09:53:24 Urgent desire to urinate 79688479 R39.15 Benign pro static hyperplasia with outflow obstruction 076071835 N40.1 Recurrent urinary tract infection 368621669 N39.0 [id number] [facility] [address] [place] [address] 05/03/2019 13:27:51 05/03/2019 15:07:43 Bilateral carpal tunnel syndrome [id number] 8232446 G56.03 Cervical radiculopathy 77792621 M54.12 Diabetic p eripheral neuropathy 769366459 E11.40 [id number] [facility] [place] [address] [place] [address] 05/03/2019 14:27:10 05/03/2019 16:47:59 Acquired trigger finger 5097757 M65.30 Right small finger, Seems better with injections Pain in finger 79616093 M79.645 Left thumb MP arthritis, Recommend injection which we will do at the same time as the carpal tunnel release Carpal bowen suzi syndrome 01392095 G56.03 Lateral carpal tunnel syndrome, also peripheral neuropathy and C7 radiculopa thy, recommend left carpal tunnel release [id number] SURGERY SCHEDULE [address] [place] [address] 05/20/2019 06:15:02 05/20/2019 06:15:36 [id number] [facility] [place] [address] [place] [address] 05/31/2019 14:13:19 05/31/2019 14:56:56 Carpal tunnel syndrome 12690464 G56.03 doing well status post left carpal tunnel release [id number] [facility] [place] [address] [place] [address] 06/25/2019 10:03:16 06/25/2019 10:26:36 Carpal tunnel syndrome 86154773 G56.03 doing well status post left carpal tunnel release Health Concerns Section Related Observation LastModified by Organization Detai ls LastModified Time None Recorded Concern Status LastModified by Organization Details LastModified Time None Recorded Advance Directives Directive None Recorded Payers Encounter Date Sequence Insurance Name Policy Number Policy Aamro Covered Member ID Amaro Member ID Guarantor Name 05/03/2019 1 [employer] (MEDICARE REPLACEMENT/A DVANTAGE - HMO) Joanna Parham [id number] Joanna Parham 05/03/2019 1 [employer] (MEDICARE REPLACEMENT/A DVANTAGE - HMO) Joanna Parham [id number] Joanna Parham 05/20/2019 1 [employer] (MEDICARE REPLACEMENT/A DVANTAGE - HMO) Joanna Parham [id number] Joanna Parham 05/31/2019 1 [employer] (MEDICARE REPLACEMENT/A DVANTAGE - HMO) Joanna Parham [id number] Joanna Parham 06/25/2019 1 [employer] (MEDICARE REPLACEMENT/A DVANTAGE - HMO) Joanna Parham [id number] Joanna Parham Notes Date Note Type Note Provider Name and Address Organization Details Recorded Time 05/03/2019 text/html Hand SurgeryRepo rted bypatient.Hand Dominance:right Location:bilateral; hands Severity:pain level 2/10 Duration:5 years Previous Surgery:none Work Related:no Working:noNotes:Pt comes in with nallely hand pain and states his pain is a 2/10. Pt here to discuss EMG results. MEHNAZ BETANCOURT MD [address] [place] [address], [address], [facility] 05/03/2019 15:01:34 05/31/2019 text/html The patient is h ere for a routine scheduled postoperative follow-up visit. He reports that the numbness and tingling is better in the median nerve distribution, still has some numbness in the small and ring finger. ALISTAIR VEGA PA-C [address] [place] [address], [address], [facility] 05/31/2019 14:55:50 05/31/2019 text/html Hand SurgeryRepo rted bypatient.Hand Dominance:right Location:left; hand Severity:pain level 2/10 Previous Surgery:surgical procedure: (Left Carpal Tunnel Release; inject left thumb MP joint with 1 mL of Kenalog and 1 mL of lidocaine); date (05/20/19); 11 days ago; gp 08/17/19 Working:unemployed Patient is currently in a:surgical dressing; sutures removed for examNotes:Patient states that he has pain that comes and goes. ALISTAIR VEGA PA-C [address] [place], [address], [facility] 05/31/2019 14:55:50 06/25/2019 text/html Hand SurgeryRepo rted bypatient.Hand Dominance:right Location:left; hand Severity:pain level 3/10 Previous Surgery:surgical procedure: (Left Carpal Tunnel Release; inject left thumb MP joint with 1 mL of Kenalog and 1 mL of lidocaine); date (05/20/19); 5 weeks ago; gp 08/17/19 Work Related:no Working:no; unemployedNotes:Pt here for f/u of Lt CTR and CSi injection. Pt states he is still experiencing some soreness on the palm. Pt notes 1 week ago when he was playing his guitar, his Lt IF locked for about 5-10 minutes. Pt ran warm water over the IF to release it. Patient arrives for follow-up of the left carpal tunnel release, five weeks out from surgery. He reports he is able to play the guitar without numbness or tingling now. He reports one episode of his left index finger locking. ALISTAIR VEGA PA-C [address], [address], [facility] 06/25/2019 13:02:22
--- OUTSIDE RECORDS SUMMARY | 2024-10-20 07:40 | XMS_ITS | Continuity of Care Document ---
Author Organization [facility] & [place], [facility] - [address] Address [address] [place] [address] Care Team Providers Care Agriscience Teacher Name Role Phone LEILA MENA Primary Care [...] Organization Details Recorded Time Sensorineural hearing loss 10191871 Active 2022 SOCORRO REYNOSO, AUD [address] [facility], [place], [address] , [facility] & [place] 3 10:26:08 Problem Notes None [...] Tobacco Smoking Status Never Smoker Lesa Bran [facility], [place] - [facility] - [place] & [place] 11/06/2022 13:01:36 Do You Use Any Illicit Or Recreational Drugs? No Information not available 10/17/2022 Has Tobacco Cessation Counseling Been Provided? No [email or web address] Information not available 04/02/2023 Do You Or Have You Ever Used Any Other Forms Of Tobacco Or Nicotine? No [email or web address] Information not available 04/02/2023 Sex: Unknown Functional Status None recorded. Mental Status None recorded. Family History Nothing Reported Notes:Mother - Fath er - Medical History No medical history recorded. Past Encounters Encounter ID Performer Location Encounter Start Date Encounter Closed Date Diagnosis/Indication Diagnosis SNOMED-CT Code Diagnosis ICD10 Code Diagnosis Note [id number] CAITLYN POTTS [facility] [place] [address] [facility] [address] [place] [address] 08/31/2024 14:41:51 08/31/2024 15:05:55 Sensorineural hearing loss 81954374 H90.3 Health Concerns Section Related Observation LastModified by Organization Detai ls LastModified Time None Recorded Concern Status LastModified by Organization Details LastModified Time None Recorded Payers Encounter Date Sequence Insurance Name Policy Number Policy Amaro Covered Member ID Amaro Member ID Guarantor Name 08/31/2024 1 [employer] - GOLD PLUS (MEDICARE REPLACEMENT HMO) Johnathan Parham [id number] Johnathan Parham Notes Date Note Type Note Provider Name and Address Organization Details Recorded Time 08/31/2024 text/html Patient was seen today for a hearing aid service. Cleaned and adjusted hearing aids this date. CAITLYN POTTS [address] [facility], [place], [address], [facility] - [place] - [place] & [place] 08/31/2024 15:23:41
--- OUTSIDE RECORDS SUMMARY | 2024-10-20 07:40 | XMS_ITS | Data Portability ---
Author Organization [facility] Address [address] [place] [address] Care Team Providers Care Mining Captain Name Role Phone LEILA MENA Primary Care [...] instructions recorded. Reason for Referral None Reported. Results Created Date Observation Date Name Description Value Unit Range Abnormal Flag Note LastModifiedBy Organization Detail LastModifiedTime 04/02/2004/02/2023 RENAL FUNCT ION PANEL sodium 138 mmol/ L 136-14 5 Not Available [facility] ([employer]) [address] [place], [address], 04/02/2023 15:18:39 04/02/20 23 04/02/2023 RENAL FUNCT ION PANEL potassium 4.7 mmol/ L 3.6-5. 0 Not Available [facility] ([employer]) [address], [place], [address], 04/02/2023 15:18:39 04/02/20 23 04/02/2023 RENAL FUNCT ION PANEL chloride 103 mmol/ L 98-107 Not Available [facility] ([employer]) [address], [place], [address], 04/02/2023 15:18:39 04/02/20 23 04/02/2023 RENAL FUNCT ION PANEL carbon dioxide 28.4 mmol/ L 21.0-3 2.0 Not Available [facility] ([employer]) [address] , [place], [address], 04/02/2023 15:18:39 04/02/20 23 04/02/2023 RENAL FUNCT ION PANEL anion gap 11.3 Not Available [facility] ([employer]) [address] , [place], [address], 04/02/2023 15:18:39 04/02/20 23 04/02/2023 RENAL FUNCT ION PANEL glucose 208 mg/dL 70-120 high Not Available [facility] ([employer]) [address] , [place], [address], 04/02/2023 15:18:39 04/02/20 23 04/02/2023 RENAL FUNCT ION PANEL BUN 20 mg/dL 7-18 high Not Available [facility] ([employer]) [address] , [place], [address], 04/02/2023 15:18:39 04/02/20 23 04/02/2023 RENAL FUNCT ION PANEL creatinine 2.1 mg/dL 0.6-1. 3 high Not Available [facility] ([employer]) [address] , [place], [address], 04/02/2023 15:18:39 04/02/20 23 04/02/2023 RENAL FUNCT ION PANEL albumin 3.5 g/dL 3.4-5. 0 Not Available [facility] ([employer]) [address] , [place], [address], 04/02/2023 15:18:39 04/02/20 23 04/02/2023 RENAL FUNCT ION PANEL calcium 8.9 mg/dL 8.5-10 .5 Not Available [facility] ([employer]) [address] , [place], [address], 04/02/2023 15:18:39 04/02/20 23 04/02/2023 RENAL FUNCT ION PANEL phosphorus 3.0 mg/dL 2.5-4. 9 Not Available [facility] ([facility]) [address] [facility], [place], [address], 04/02/2023 15:18:39 04/02/20 23 04/02/2023 urina lysis , dipst ick Leukocytes (reference range) small Not Available [facility] [address], [place], [address], 04/02/2023 13:47:05 04/02/20 23 04/02/2023 urina lysis , dipst ick Nitrite (reference range:) negati ve Not Available [address], [place], [address], 04/02/2023 13:47:05 04/02/20 23 04/02/2023 urina lysis , dipst ick Urobilinogen (reference range) 0.2 Not Available [facility] [address], [place], [address], 04/02/2023 13:47:05 04/02/20 23 04/02/2023 urina lysis , dipst ick Protein (reference range) negati ve Not Available [facility] [address], [place], [address], 04/02/2023 13:47:05 04/02/20 23 04/02/2023 urina lysis , dipst ick pH (reference range 5-8.5) 6.0 Not Available [facility], [place], [address], 04/02/2023 13:47:05 04/02/20 23 04/02/2023 urina lysis , dipst ick Blood (reference range:) non-He molyze d: Trace Not Available [place] [address], [place], [address], 04/02/2023 13:47:05 04/02/20 23 04/02/2023 urina lysis , dipst ick Specific [place] (reference range) 1.020 Not Available [place] [address], [place], [address], 04/02/2023 13:47:05 04/02/2004/02/2023 urina lysis , dipst ick Ketone (reference range) small Not Available [place] [address], [place], [address], 04/02/2023 13:47:05 04/02/20 23 04/02/2023 urina lysis , dipst ick Bilirubin (reference range) negati ve Not Available [place] [address], [place], [address], 04/02/2023 13:47:05 04/02/2004/02/2023 urina lysis , dipst ick Glucose (reference range) negati ve Not Available [place] [address], [place], [address], 04/02/2023 13:47:05 04/02/2004/02/2023 urina lysis , dipst ick Color (reference range: yellow-brown ) Yellow Not Available [place] [address], [place], [address], 04/02/2023 13:47:05 Result Notes None recorded. Problems Name Problem SNOMED Code Status Onset Date Resolution Date Notes Provider Name and Address Organization Details Recorded Time Sensorineural hearing loss 88372602 Active 2022 SOCORRO REYNOSO, AUD [address] [place], [address] , [place] - [facility] - [place] & [place] 3 10:26:08 Problem Notes None recorded. Medical [...] Tobacco Smoking Status Never Smoker Lesa Bran [place] [place] - [facility] [place] & [place] 11/06/2022 13:01:36 Do You Use Any Illicit Or Recreational Drugs? No [email or web address] Information not available 10/17/2022 Has Tobacco Cessation Counseling Been Provided? No [email or web address] Information not available 04/02/2023 Do You Or Have You Ever Used Any Other Forms Of Tobacco Or Nicotine? No Information not available 04/02/2023 Sex: Unknown Functional Status None recorded. Mental Status None recorded. Family History Nothing Reported Notes:Mother - Fath er - Medical History No medical history recorded. Past Encounters Encounter ID Performer Location Encounter Start Date Encounter Closed Date Diagnosis/Indication Diagnosis SNOMED-CT Code Diagnosis ICD10 Code Diagnosis Note [id number] Joel Lopez MD [facility] [address] [place] [address],[address] [place] [address] 11/06/2022 12:44:51 11/06/2022 13:53:56 Recurrent urinary tract infection 302891015 N39.0 Increased frequency of urination 744962555 R35.0 Dysuria 69022380 R30.0 Atrophy of left kidney 520788281 N26.1 nonfunctio mason Chronic re nal insufficiency 290241215 N18.9 historical ly 37% right renal function and 0% on left. 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5 Balanitis xerotica obliterans 193974060 N48.0 Balanoposthitis 57494409 N47.6 mild, chronic History of diabetes mellitus 919371995 Z86.39 [id number] Kristin Goldstein NP, S [facility] [address] [facility] [place] [address] 04/02/2023 13:28:21 04/02/2023 15:29:15 Recurrent urinary tract infection 571214986 N39.0 Will send urine for culture and sensitivit yRenal function panelOnce renal function panel is back will determine ? CT scan for imaging of kidneys. Labwork returned and BUN 20 and Creat 2.1. Will order CT scan of abd/pelvis without contrast Increased frequency of urination 929997818 R35.0 Dysuria 94807877 R30.0 Atrophy of kidney 228668 005 N26.1 Chronic ki dney disease 426715667 N18.9 Nocturia 866914641 R35.1 Renal artery stenosis 30 1757004 I70.1 History of transient ischemic attack 615944934 Z86.73 Balanitis xerotica obliterans 797984085 N48.0 History of diabetes mellitus 185544958 Z86.39 Long-term current use of anticoagulant 504694521 Z79.01 Microscopic hematuria 19 5278872 R31.29 [id number] CAITLYN POTTS [facility] [place] [address] 04/09/2023 10:25:37 04/09/2023 10:26:32 Sensorineural hearing loss 06946725 H90.3 [id number] CAITLYN POTTS [facility] [place] [address] 09/02/2023 15:01:16 09/02/2023 15:01:47 Sensorineural hearing loss 48940525 H90.3 [id number] CAITLYN POTTS [facility] [place] [address] [address] [place] [address] 02/25/2024 13:33:35 02/25/2024 13:33:51 Sensorineural hearing loss 20414564 H90.3 [id number] CAITLYN POTTS [facility] [place] [address] [facility] [address] [place] [address] 08/31/2024 14:41:51 08/31/2024 15:05:55 Sensorineural hearing loss 24695054 H90.3 [id number] CAITLYN POTTS [facility] [place] [address] [address] [place] [address] 09/22/2024 11:38:24 09/22/2024 11:43:16 Sensorineural hearing loss 25504676 H90.3 Health Concerns Section Related Observation LastModified by Organization Detai ls LastModified Time None Recorded Concern Status LastModified by Organization Details LastModified Time None Recorded Advance Directives Directive None Recorded Payers Encounter Date Sequence Insurance Name Policy Number Policy Amaro Covered Member ID Amaro Member ID Guarantor Name 04/09/2023 1 [employer] - GOLD PLUS (MEDICARE REPLACEMENT HMO) Johnathan Parham [id number] Johnathan Parham 09/02/2023 1 [employer] - GOLD PLUS (MEDICARE REPLACEMENT HMO) Johnathan Parham [id number] Johnathan Parham 02/25/2024 1 [employer] - GOLD PLUS (MEDICARE REPLACEMENT HMO) Johnathan Parham [id number] Johnathan Parham 08/31/2024 1 [employer] - GOLD PLUS (MEDICARE REPLACEMENT HMO) Johnathan Parham [id number] Johnathan Parham 09/22/2024 1 [employer] - GOLD PLUS (MEDICARE REPLACEMENT HMO) Johnathan Parham [id number] Johnathan Parham Notes Date Note Type Note Provider Name and Address Organization Details Recorded Time 04/09/2023 text/html Patient was seen today for a hearing aid service. Cleaned and adjusted hearing aids this date. CAITLYN POTTS [address], [place], [address], [place] - [facility] - [place] & [place] 04/09/2023 10:26:26 09/02/2023 text/html Patient was seen today for a hearing aid service. Cleaned and adjusted hearing aids this date. SOCORRO REYNOSO, CAITLYN [address], [place], [address], [place] - [facility] - [place] & [place] 09/02/2023 15:02:27 02/25/2024 text/html Patient was seen today for a hearing aid service. Cleaned and adjusted hearing aids this date. SOCORRO REYNOSO, CAITLYN [address], [place], [address], [place] - [facility] - [place] & [place] 02/25/2024 13:34:28 08/31/2024 text/html Patient was seen today for a hearing aid service. Cleaned and adjusted hearing aids this date. SOCORRO REYNOSO, CAITLYN [address], [place], [address], [place] - [facility] - [place] & [place] 08/31/2024 15:23:41 09/22/2024 text/html Patient was seen today for a hearing aid service. Cleaned and adjusted hearing aids this date. SOCORRO REYNOSO, CAITLYN [address], [place], [address], [place] - [facility] & [place] 09/22/2024 11:47:14
[2024-10-20] MEDS: SODIUM CHLORIDE 0.9% 10ML SYR (RAD ONLY) 10 ML IV (07:58)
[2024-10-20] MEDS: IOPAMIDOL-370 (76%);100ML BOTTLE 75 ML IV (07:58)
--- NOTE | 2024-10-20 08:00 | CT_ITS ---
FINAL REPORT TECHNIQUE: Pre-and postcontrast axial imaging of the abdomen and pelvis was obtained.This study was performed with techniques to keep radiation doses as low as reasonably achievable, (ALARA). Individualized dose reduction technique using automated exposure control or adjustment of mA and/or kV according to the patient's size were employed. CLINICAL HISTORY: L Renal mass pt stated he had a ct scan and it showed a renal mass and this is a f/u COMPARISON: Prior CT dated 09/24/2024, and 05/05/2023 FINDINGS: There is artifact on the examination secondary to the patient's arms being positioned along his sides rather than above his head. Evaluation of Hounsfield units is very limited secondary to this artifact. The exam was performed to follow-up a left renal mass seen on the most recent prior CT of 09/24/2024. This abnormality remains present and appears stable in size, however it could represent normal cortex with adjacent scar, however a renal lesion is not entirely excluded. There is a chronic hematoma once again identified adjacent to the posterior aspect of the right kidney, on today's exam measuring 7.9 x 6.9 cm in size, likely unchanged given slice selection. No evidence of hydronephrosis is noted. There is a new small right pleural effusion. The small chronic left pleural effusion remains stable in appearance. Chronic left lower lobe airspace disease is identified. The liver is homogeneous. There is calcification either in a contracted gallbladder or gallbladder remnant if post cholecystectomy. The spleen is unremarkable in appearance. There is a left adrenal nodule once again identified that does not meet strict criteria for an adenoma, however is stable in appearance. No evidence of small bowel obstruction is identified. The appendix is not well-seen. There are no secondary signs of appendicitis. There is a moderate amount of retained stool. There is wall thickening of the bladder, also seen on the prior exam, which may represent cystitis, similar to the prior exam. There are mildly prominent but stable bilateral pelvic lymph nodes. No evidence of ascites is seen. IMPRESSION: Evaluation for enhancement after contrast administration is extremely limited by artifact produced secondary to the patient's arms along his sides. A renal lesion is not excluded. Would consider repeating the examination when the patient is able to put his arms over his head. Chronic right perinephric hematoma once again noted, not significantly changed since the prior CT of 09/24/2024. New small right pleural effusion. Additional chronic findings, unchanged. Reviewed, Interpreted and Dictated by Verónica Parish MD Transcribed by Isadora Norris Authenticated and [facility]
== END 2024-10-20 23:59 | disposition home or self-care (01) ==
PROVIDERS: PCP Nurse Practitioner Family; Visit Provider Nurse Practitioner Family
DX: N28.89 Other specified disorders of kidney and ureter (principal)
CPT/HCPCS: 74178; Q9967

== ENCOUNTER 2024-12-22 14:32 | Outpatient (CLI) | payer MEDICARE, SELFPAY ==
--- OUTSIDE RECORDS SUMMARY | 2024-12-22 14:36 | XMS_ITS | Clinical Summary ---
Author Organization [facility] Address [address] [place] [address] Care Team Providers Care Lighting Fixtures Decorator Name Role Phone Estefania Bueno MD Primary Care Provider Active Problems Problem Noted Date Diagnosed Date Stroke 08/15/2012 Vertigo 08/13/2012 Chronic kidney disease, stage III (moderate) 01/2013 DM type 2 (diabetes mellitus, type 2) 08/13/2012 Vertebrobasilar insufficiency 08/13/2012 Overview (09/23/2021): Abnormal carotid ultrasound Depression Diabetes Hypertension Renal insufficiency CAD (coronary artery disease) Hyperlipemia Ischemic cardiomyopathy Immunizations Immunization Administration Dates Next Due Td vaccine (adult) 10/13/2010,10/07/2010 Social History Tobacco Use Types Packs/Day Years Used Date Smoking Tobacco: Never Assessed Sex and Gender Information Value Date Recorded Sex Assigned at Not on file Legal Sex Male 10:52 PM EST Gender Identity Not on file Sexual Orientation Not on file Plan of Treatment Not on file Care Teams Lighting Fixtures Decorator Relationship Specialty Start Date End Date Estefania Bueno MD [address] [place] [address] PCP - General 01/15/12
--- OUTSIDE RECORDS SUMMARY | 2024-12-22 14:38 | XMS_ITS | Encounter Summary ---
Author Organization [employer] [facility] Address [address] [place] [address] Care Team Providers Care Circuit Rider Name Role Phone Unavailable Primary Care Provider Annie e Encounter Details Date Type Department Care Team (Late st Contact Info) Description 01/29/2019 Transcribed Document [facility] [place] [address] ProviderEmilia MD [address] [place], [place] [address] Social History Tobacco Use Types Packs/Day Years Used Date Smoking Tobacco: Never Assessed Sex and Gender Information Value Date Recorded Sex Assigned at Not on file Legal Sex Male 5:19 PM CDT Gender Identity Not on file Sexual Orientation Not on file documented as of this encounter Miscellaneous Notes * [employer] Conversion Note - Historical ProviderMD - 01/29/2019 10:48 PM CDT Nutrition Assessment Entered On: 02/01/2019 10:10 EDT Performed On: 02/01/2019 10:16 EDT by Lesvia Warner Dietician Nutrition Assessment Nutrition Assessment Reason : Automatic referral Lesvia Warner Dietician - 02/01/2019 10:10 EDT Nutrition Recommendations Dietitian Recommendations : 02/01: RD rec'd consult for BMI>40. 63 yo male admitted for chest pain. Pt on cardiac diet (avg 100% x 2 meals). LBM 01/31. Labs reviewed (glucose 241). Meds reviewed (+SSI). RD adjusted diet to 60gCHO to assist w/BG mgmt-RN notified. No skin breakdown noted. RD attempted to speak w/pt x 2. No nutrition-related concerns identified at this time. RD will rescreen 7-10 days; available prn. Nutrition Care Level : No nutritional risk Lesvia Warner Dietician - 02/01/2019 10:16 EDT Electronically signed by Rehan, [facility] Conversion Side [employer] at 10/22/2022 11:01 PM CDT documented in this encounter Plan of Treatment Not on file documented as of this encounter Visit Diagnoses Not on filedocumented in this encounter
--- OUTSIDE RECORDS SUMMARY | 2024-12-22 14:38 | XMS_ITS | Encounter Summary ---
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 Role Phone Unavailable Primary Care Provider Unavailabl e Encounter Details Date Type Department Care Team (Late st Contact Info) Description 01/30/2019 Transcribed Document [facility] Cardiology [address] [place] [phone] [place] [address] [place] [address] [address] [place] [address] Social History Tobacco Use Types Packs/Day Years Used Date Smoking Tobacco: Never Assessed Sex and Gender Information Value Date Recorded Sex Assigned at Not on file Legal Sex Male 5:19 PM CDT Gender Identity Not on file Sexual Orientation Not on file documented as of this encounter Miscellaneous Notes * Cerner Conversion Note - Jovany Benitez MD - 01/30/2019 9:28 AM EDT Patient: JOHNATHAN PARHAM Age: 63 years Sex: Male : 1955 Associated Diagnoses: None Author: JOVANY BENITEZ MD-CAR Basic Information PCP: Cardiology: KAREN Chief Complaint Chest pain History of Present Illness The patient is a very pleasant 63-year-old gentleman with a known history of atherosclerotic cardiovascular disease???history of coronary artery bypass grafting, hypertension, dyslipidemia, morbid obesity, and diabetes mellitus type 2 presented to [facility] with complaints of progressive chest pain with associated palpitations shortness of air and cough via [facility]. He unerwent stress testing at their facility which reveaeled a reversable defect and was transferred to our facility for evaluation. He admits these episodes are not caused by exertion, but are worsened with exertion. He admits to intermittent episodes of dizziness with associated nausea. Cardiology is been asked to see and assist in the management of his care. He states he was in his normal state of health up until approximately a week ago. His initial cardiac labs have been essentially normal. At the time of this assessment patient is resting, plan bed in no acute distress. Review of Systems Constitutional: Negative except as documented in history of present illness. Eye: Negative except as documented in history of present illness. Ear/Nose/Mouth/Throat: Negative except as documented in history of present illness. Respiratory: Negative except as documented in history of present illness. Cardiovascular: Negative except as documented in history of present illness. Gastrointestinal: Negative except as documented in history of present illness. Genitourinary: Negative except as documented in history of present illness. Hematology/Lymphatics: Negative except as documented in history of present illness. Endocrine: Negative except as documented in history of present illness. Immunologic: Negative except as documented in history of present illness. Musculoskeletal: Negative except as documented in history of present illness. Integumentary: Negative except as documented in history of present illness. Neurologic: Negative except as documented in history of present illness. Psychiatric: Negative except as documented in history of present illness. ROS reviewed as documented in chart Health Status Allergies (1) Active Reaction Contrast Dye None Documented Home Medications (10) Active aspirin 81 mg oral delayed release tablet 81 mg = 1 Tab, Oral, Daily clopidogrel 75 mg oral tablet 75 mg = 1 Tab, Oral, Daily Coreg 25 mg oral tablet 25 mg = 1 Tab, Oral, BID glipiZIDE 10 mg oral tablet 10 mg = 1 Tab, Oral, Daily hydrALAZINE 25 mg oral tablet 25 mg = 1 Tab, Oral, BID isosorbide dinitrate 30 mg oral tablet 30 mg = 1 Tab, Oral, TID lisinopril 20 mg oral tablet 20 mg = 1 Tab, Oral, Daily potassium gluconate 550 mg oral tablet 1 Tab, Oral, Daily rosuvastatin 40 mg oral tablet 40 mg = 1 Tab, Oral, Daily Synthroid 75 mcg (0.075 mg) oral tablet 75 mcg = 1 Tab, Oral, Daily Allergies: Allergic Reactions (Selected) Severity Not Documented Contrast Dye- No reactions were documented. Current medications: (Selected) Inpatient Medications Ordered Ativan: 0.5 mg, IV Push, Q4H, PRN: Agitation Core mg, Oral, BID DuoNeb 0.5 mg-2.5 mg/3 mL inhalation solution: 3 mL, Nebulized Inhalation, Q6H, PRN: Shortness of Breath Pepcid: 20 mg, Oral, Daily Phenergan: 6.25 mg, IntraVENous, Q6H, PRN: Nausea Synthroid: 75 mcg, Oral, Daily Tylenol: 650 mg, Oral, Q4H, PRN: Other (See Comment) Zofran: 4 mg, IV Push, Q4H, PRN: Nausea aspirin: 81 mg, Oral, Daily cloNIDine: 0.1 mg, Oral, Q4H, PRN: Hypertension clopidogrel: 75 mg, Oral, Daily heparin: 5,000 Units, SubCutaneous, Q8H hydrALAZINE: 10 mg, IV Push, Q6H, PRN: Hypertension hydrALAZINE: 25 mg, Oral, BID insulin lispro 76 kg - 100 k kg - 100 kg scale, SubCutaneous, AC and at Bedtime isosorbide dinitrate: 30 mg, Oral, TID lisinopril: 20 mg, Oral, Daily morphine: 2 mg, IV Push, Q2H, PRN: Pain (Severe 7-10) rosuvastatin: 40 mg, Oral, Daily Documented Medications Documented Coreg 25 mg oral tablet: 1 Tab, Oral, BID, 60 Tab, 0 Refill(s) Synthroid 75 mcg (0.075 mg) oral tablet: 1 Tab, Oral, Daily, 60 Tab, 0 Refill(s) aspirin 81 mg oral delayed release tablet: 1 Tab, Oral, Daily, 30 Tab, 0 Refill(s) clopidogrel 75 mg oral tablet: 1 Tab, Oral, Daily, 0 Refill(s) glipiZIDE 10 mg oral tablet: 1 Tab, Oral, Daily, 0 Refill(s) hydrALAZINE 25 mg oral tablet: 1 Tab, Oral, BID, 60 Tab, 0 Refill(s) isosorbide dinitrate 30 mg oral tablet: 1 Tab, Oral, TID, 90 Tab, 0 Refill(s) lisinopril 20 mg oral tablet: 1 Tab, Oral, Daily, 0 Refill(s) potassium gluconate 550 mg oral tablet: 1 Tab, Oral, Daily, 100 Tab, 0 Refill(s) rosuvastatin 40 mg oral tablet: 1 Tab, Oral, Daily, 30 Tab, 0 Refill(s) Problem list: All Problems CKD (chronic kidney disease) / SNOMED CT 2479307215 / Confirmed Diabetes mellitus / SNOMED CT 542522528 / Confirmed GERD (gastroesophageal reflux disease) / SNOMED CT 392709590 / Confirmed [place] (hard of hearing) / SNOMED CT 57251283 / Confirmed History of obstructive sleep apnea / IMO [id number] / Confirmed Hypertension / SNOMED CT 3414037412 / Confirmed Inactive: Arrhythmia / SNOMED CT 7945054334, Active Problems (6) CKD (chronic kidney disease) Diabetes mellitus GERD (gastroesophageal reflux disease) History of obstructive sleep apnea [place] (hard of hearing) Hypertension Histories No education data available. Social & Psychosocial Habits Alcohol 01/29/2019 Alcohol Use History, Social Habits No Alcohol Use in Last Twelve Months No Substance Abuse 01/29/2019 Recreational Drug Use History No Recreational Drug Use Last 12 Months No Tobacco 01/29/2019 Smoking Status Never (less than 100 in l Smokeless Tobacco Status Never Smokeless Tobacco Use History None Past Medical History: 1. Morbid obesity. 2. Hypertension. 3. Chronic kidney disease. 4. Diabetes mellitus. 5. Difficulty hearing. 6. Hyperlipidemia. 7. History of arrhythmia. 8. GERD. Family History: Noncontributory Procedure history: CORONARY ARTERY BYPASS GRAFT. CHOLECYSTECTOMY (60729). CATARACT REMOVAL INSERTION OF LENS (16768). Right knee replacement. Hernia Repair. Carotid Endardectomy. Social History Social & Psychosocial Habits Alcohol 01/29/2019 Alcohol Use History, Social Habits No Alcohol Use in Last Twelve Months No Substance Abuse 01/29/2019 Recreational Drug Use History No Recreational Drug Use Last 12 Months No Tobacco 01/29/2019 Smoking Status Never (less than 100 in l Smokeless Tobacco Status Never Smokeless Tobacco Use History None . Physical Examination VS/Measurements Vitals Signs (last 24 hrs) Last Charted Minimum Maximum Temp 97.5 (JAN 30 06:16) 97.5 (JAN 30 06:16) 97.6 (JAN 29 21:47) Apical HR 68 (JAN 30 08:06) 68 (JAN 30 08:06) 74 (JAN 29 23:03) Mon HR 65 (JAN 30 06:16) 65 (JAN 30 06:16) 77 (JAN 29 23:31) Resp Rate 18 (JAN 30 06:16) 18 (JAN 30 06:16) 20 (JAN 29 21:47) SBP H 158 (JAN 30 08:06) 95 (JAN 29 23:31) H 158 (JAN 30 08:06) DBP 81 (JAN 30 08:06) L 59 (JAN 29:31) 84 (JAN 29 21:47) MAP 95 (JAN 30 06:16) 71 (JAN 29 23:31) 97 (JAN 29 21:47) SpO2 95 (JAN 30 06:16) 95 (JAN 30 06:16) 97 (JAN 29 21:47) General: Alert and oriented, No acute distress. Eye: Pupils are equal, round and reactive to light, Extraocular movements are intact. HENT: Normocephalic, Tympanic membranes are clear, Oral mucosa is moist. Neck: Supple, Non-tender. Respiratory: Respirations are non-labored, Symmetrical chest wall expansion. Cardiovascular: Normal rate, Regular rhythm, Good pulses equal in all extremities, Normal peripheral perfusion. Gastrointestinal: Soft, Non-tender, Non-distended, Normal bowel sounds. Genitourinary: No costovertebral angle tenderness. Musculoskeletal: Normal range of motion, Normal strength. Integumentary: Warm, Dry, Intact. Neurologic: Alert, Oriented, No focal deficits. Psychiatric: Cooperative, Appropriate mood & affect. Review / Management JAN 30 06:08 136 103 H 27 / H 274 5.0 27 H 2.00 \ Cardiac Markers (Current Encounter/Past 24 Hours) ProBNP 234 pg/mL NE 01/29/2019 23:10 Blood Gases (Current Encounter/Past 24 Hours) No Blood Gas Results Found (Past 24 Hours) No Radiology Results Found Results review: Labs (Last four charted values) WBC 8.2 (JAN 30) HB 13.8 (JAN 30) HCT 43.4 (JAN 30) Plt 172 (JAN 30) Na 136 (JAN 30) K 5.0 (JAN 30) Cl 103 (JAN 30) CO2 27 (JAN 30) BUN H 27 (JAN 30) Cr H 2.00 (JAN 30) Glu R H 274 (JAN 30) Ca 9.6 (JAN 30) Lactic 1.0 (JAN 29) AST H 42 (JAN 30) ALT 29 (JAN 30) ALK P 82 (JAN 30) T Bili H 2.3 (JAN 30) PTN 7.6 (JAN 30) ALB 3.7 (JAN 30) Lipase 244 (JAN 29) Troponin <0.015 (JAN 30) <0.015 (JAN 29) . Impression and Plan IMPRESSION: * Chest pain: Serial Trop normal. * ASCVD???history of coronary artery bypass grafting * Hypertension * Acute on Chronic kidney disease * Dyslipidemia * Diabetes mellitus type 2 * Morbid obesity: BMI 40.6. PLAN; Continue aspirin/Plavix/rosuvastatin/coreg. Change home isosorbide dinitrate to him before 60 mg daily. Echocardiogram IV hydration DC [place] I Plan for [facility] once renal function stable. Consider nephrology evaluation documented in this encounter Plan of Treatment Not on file documented as of this encounter Visit Diagnoses Not on filedocumented in this encounter
--- OUTSIDE RECORDS SUMMARY | 2024-12-22 14:38 | XMS_ITS | Clinical Summary ---
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
--- OUTSIDE RECORDS SUMMARY | 2024-12-22 14:38 | XMS_ITS | Clinical Summary ---
Author Organization [facility] Address [address] [place] [address] Care Team Providers Care Cdl Program Coordinator Name Role Phone Pcp, No Primary Care Provider Unavailabl e Addison Rizoz DO Unavailable [phone] Allergies Active Allergy Reactions Criticality Noted Date Comments Ertapenem Hallucinations High 06/28/2024 AMS, confusion 06/2024 Nitroprusside Nausea And Vomiting Medium 08/03/2010 Nitroprusside Nausea,Vomiting 06/25/2024 Medications atorvastatin (Lipitor) 80 MG tablet Take 1 tablet (80 mg) by mouth every night. Active levothyroxine (Synthroid, Levoxyl) 75 MCG tablet Take 1 tablet (75 mcg) by mouth 1 (one) time each day before breakfast. Active traZODone (Desyrel) 150 MG tablet Take 1 tablet (150 mg) by mouth at night if needed for sleep. Active clopidogrel (Plavix) 75 MG tablet Take 1 tablet (75 mg) by mouth 1 (one) time each day. 4 Active finasteride (Proscar) 5 MG tablet Take 1 tablet (5 mg) by mouth 1 (one) time each day. Do not crush, chew, or split. 4 Active carvedilol (Coreg) 12.5 MG tablet Take 1 tablet (12.5 mg) by mouth 2 (two) times a day. 4 Active acetaminophen (Tylenol) 325 MG tablet Take 2 tablets (650 mg) by mouth every 6 (six) hours if needed for pain. Active apixaban (Eliquis) 5 MG tablet Take 1 tablet (5 mg) by mouth 2 (two) times a day. Active doxazosin (Cardura) 4 MG tablet Take 1 tablet (4 mg) by mouth every night. Active omeprazole (PriLOSEC) [address] capsule Take 1 capsule (40 mg) by mouth 1 (one) time each day. Do not crush or chew. Active gabapentin (Neurontin) 100 MG capsule Take 1 capsule (100 mg) by mouth 3 (three) times a day. Active Melatonin 5 MG tablet tablet Take 2 tablets (10 mg) by mouth at night if needed for sleep. Active Ascorbic Acid (vitamin C) 250 MG tablet Take 1 tablet (250 mg) by mouth 1 (one) time each day. Active metFORMIN (Glucophage) 500 MG tablet Take 1 tablet (500 mg) by mouth 2 (two) times a day. 4 Active DULoxetine (Cymbalta) [address] capsule Take 1 capsule (20 mg) by mouth 1 (one) time each day. 4 Active collagenase (Santyl) 250 UNIT/GM ointmentIndicatio ns:Diabetic foot ulcer with osteomyelitis (CMS/HCC) Apply to wound daily 30 g 2 4 Active naloxone (Narcan) 4 mg/0.1 mL nasal spray 1. Give 1 spray in nostril for no/slow breathing or cannot wake after opioid use 2. Call 911 3. Repeat in other nostril if symptoms continue 1 each 4 Active acetaminophen (Tylenol) 325 MG tablet Take 2 tablets (650 mg) by mouth every 6 (six) hours if needed for pain. Active HYDROcodone-aceta minophen ([place]) 5-325 MG tablet Take 1 tablet (5 mg of hydrocodone) by mouth every 6 (six) hours if needed for severe pain. Active Melatonin 5 MG tablet tablet Take 2 tablets (10 mg) by mouth at night if needed for sleep. Active naloxone (Narcan) 4 mg/0.1 mL nasal spray 1. Give 1 spray in nostril for no/slow breathing or cannot wake after opioid use 2. Call 911 3. Repeat in other nostril if symptoms continue Active omeprazole (PriLOSEC) [address] capsule Take 1 capsule (40 mg) by mouth 1 (one) time each day. Do not crush or chew. Active collagenase 250 UNIT/GM ointment Apply 1 Application topically 1 (one) time each day. to wound Active Ascorbic Acid (vitamin C) 250 MG tablet Take 1 tablet (250 mg) by mouth 1 (one) time each day. Active cholecalciferol (Vitamin D3) 25 MCG (1000 UT) tablet Take 1 tablet (1,000 Units) by mouth 1 (one) time each day. Active cholestyramine sugar free, SF, 10 % topical ointment Apply 1 Application topically 3 (three) times a day. 5 Active metFORMIN (Glucophage) 500 MG tablet Take 1 tablet (500 mg) by mouth 2 (two) times a day with meals for 2 days. 4 tablet 5 Active apixaban (Eliquis) 5 MG tablet Take 1 tablet (5 mg) by mouth 2 (two) times a day for 2 days. 4 tablet 5 Active atorvastatin (Lipitor) 80 MG tablet Take 1 tablet (80 mg) by mouth 1 (one) time each day for 2 days. 2 tablet 5 Active carvedilol (Coreg) 12.5 MG tablet Take 1 tablet (12.5 mg) by mouth 2 (two) times a day with meals for 2 days. 4 tablet 5 Active doxazosin (Cardura) 4 MG tablet Take 1 tablet (4 mg) by mouth every night for 2 days. 2 tablet 5 Active DULoxetine (Cymbalta) [address] capsule Take 1 capsule (20 mg) by mouth 1 (one) time each day for 2 days. Do not crush or chew. 2 capsule 5 Active levothyroxine (Synthroid, Levoxyl) 75 MCG tablet Take 1 tablet (75 mcg) by mouth 1 (one) time each day before breakfast for 2 days. 2 tablet 5 Active gabapentin (Neurontin) 100 MG capsule Take 1 capsule (100 mg) by mouth 3 (three) times a day for 2 days. 6 capsule 5 Active traZODone (Desyrel) 150 MG tablet Take 1 tablet (150 mg) by mouth at night if needed for sleep for up to 2 days. 2 tablet Active lisinopril 2.5 MG tablet Take 1 tablet (2.5 mg) by mouth 1 (one) time each day. 5 Active Active Problems Problem Noted Date Diagnosed Date C. difficile colitis 07/11/2024 Type 2 diabetes mellitus with nephropathy 2023 Decreased mobility 06/24/2024 Class 2 obesity due to excess calories in adult 06/24/2024 Pyogenic arthritis of left knee joint 06/13/2024 Septic arthritis 06/13/2024 Wound of left leg 03/10/2024 Ulcer of leg, chronic, left, with fat layer expo sed 03/10/2024 Osteomyelitis, unspecified 12/06/2023 Acute hyperglycemia 11/27/2023 Anemia 11/27/2023 Congestive heart failure 11/27/2023 Cough 11/27/2023 COVID-19 11/27/2023 Cyst of soft tissue 11/27/2023 Osteoarthritis of left hip 11/27/2023 Neuropathy 11/27/2023 Neoplasm of uncertain behavior of skin Microalbuminuria 11/27/2023 Finger laceration 11/27/2023 Pneumonia 11/27/2023 Radiculopathy 11/27/2023 Angina pectoris 11/27/2023 Vitamin D deficiency 11/27/2023 Sciatica, left side 11/27/2023 Sciatic leg pain 11/27/2023 Acute bronchitis 11/27/2023 Unstable angina 11/27/2023 Left hip pain 11/27/2023 Chronic pain of right knee 11/27/2023 Chest pain 11/27/2023 Pharyngitis 11/27/2023 Bronchitis 11/27/2023 LUKASZ (renal artery stenosis) 11/27/2023 Carotid artery stenosis 11/27/2023 Hypothyroidism 11/27/2023 Essential hypertension 11/27/2023 Hyperlipemia 11/27/2023 Chronic GERD 11/27/2023 Depression 11/27/2023 Acute UTI 11/27/2023 Chronic UTI (urinary tract infection) 11/27/2023 Diabetic foot ulcer with osteomyelitis Benign prostatic hyperplasia with lower urinary tract symptoms 11/13/2023 Insomnia, unspecified 11/13/2023 Muscle weakness (generalized) 11/13/2023 Other acute osteomyelitis, left ankle and foot 0 11/13/2023 Type 2 diabetes mellitus wit h diabetic neuropathy, unspecified 11/13/2023 Osteomyelitis of left ankle 11/05/2023 Ankle ulcer, left, with necrosis of muscle 11/02 Acute on chronic systolic heart failure 09/04/19 24 Pressure injury of skin of left heel 09/04/2023 Obesity (BMI 30.0-34.9) 09/04/2023 Urinary tract infection with hematuria Awaiting admission to adequate facility elsewher e 07/15/2023 Severe obesity (BMI 35.0-39.9) with comorbidity 06/13/2023 Acute kidney injury (NEMO) with acute tubular nec rosis (ATN) 05/25/2023 Acute hemorrhage 05/25/2023 Hemorrhagic shock 05/25/2023 Sensorineural hearing loss 04/09/2023 Intra-abdominal hernia 08/22/2021 Ischemic cardiomyopathy 08/22/2021 Morbid obesity with body mass index (BMI) of 40. 0 or higher 08/22/2021 NSTEMI, initial episode of care 08/17/2018 Acute on chronic kidney failure 06/25/2017 Renal insufficiency 06/24/2017 GERD (gastroesophageal reflux disease) 7 Bilateral carotid artery stenosis 05/14/2017 Abnormal stress test 03/27/2017 Overview (08/22/2021): Added automatically from request for surgery [id number] Calculus of gallbladder and bile duct 12/27/2013 Fatty liver 12/27/2013 Tear of lateral meniscus of knee, current 2013 Carotid stenosis, asymptomatic 03/25/2013 Bilateral renal artery stenosis 03/06/2013 Symptomatic bradycardia 02/25/2013 DANY (obstructive sleep apnea) 10/17/2012 Cerebrovascular accident (CVA) 08/15/2012 Stroke 08/15/2012 Hypothyroid 08/13/2012 Vertebrobasilar insufficiency 08/13/2012 Overview (08/22/2021): Abnormal carotid ultrasound Vertigo 08/13/2012 DM type 2 (diabetes mellitus, type 2) 08/13/2012 Acute chest pain 06/19/2012 Arteriosclerosis of coronary artery 06/19/2012 Hyperlipidemia 06/19/2012 Hypertension 10/03/2010 Morbid obesity 10/03/2010 Mood disorder 08/03/2010 Posttraumatic stress disorder 08/03/2010 Acute hypoxic respiratory failure Resolved Problems Problem Noted Date Diagnosed Date Resolved Date Visual hallucinations 06/25/20242024 Septic arthritis 06/24/2024 07/11/2024 Delirium 06/24/2024 07/11/2024 SOB (shortness of breath) 08/08/2023 High anion gap metabolic acidosis 05/25/2023 07/15/2023 Hyperkalemia 05/25/2023 07/15/2023 Hypernatremia 05/25/2023 07/15/2023 Retroperitoneal bleed 05/05/20232023 Encounters Date Type Department Care Team Description 10/01/2024 Telephone [facility] [address], [address] [place] [address] Preethi Sow 09/30/2024 Travel from Last 3 Months Immunizations Immunization Administration Dates Next Due Influenza, injectable, quadrivalent, preservativ e free 08/11/2018,08/11/2018 PPD Skin Test (TB Skin Test) 11/24/2023,11/14/19 24 TD (adult), 2 Lf tetanus tox oid, preservative free, adsorbed 10/13/2010,10/07/2010 Td (adult), unspecified 10/13/2010,10/07/2010 Tdap 04/01/2023 Family History Medical History Relation Name Comments Cardiac disorder Father Hyperlipidemia Father Hypertension Father Cardiac disorder Mother Diabetes Mother Hyperlipidemia Mother Hypertension Mother Obesity Mother Cardiac disorder Sibling 1 Diabetes Sibling 2 Hypertension Sibling 3 Obesity Sibling 4 Hyperlipidemia Sibling 5 Anesthesia problems Neg Hx Malig Hyperthermia Neg Hx Relation Name Status Comments Father Mother Sibling 1 Sibling 2 Sibling 3 Sibling 4 Sibling 5 Social History Tobacco Use Types Packs/Day Years Used Date Smoking Tobacco: Never Passive Smoke Exposure: Never Smokeless Tobacco: Never Tobacco Cessation:Counseling Given: No Alcohol Use Standard Drinks/Week Comments Never 0 (1 standard drink = 0.6 oz pure alcohol) Alcoholic Drinks/day: Former consumption of alcohol Humiliation, Afraid, Rape, and Kick questionnair e Answer Date Recorded Within the last year, have y ou been afraid of your partner or ex-partner? No 06/25/2024 Within the last year, have y ou been humiliated or emotionally abused in other ways by your partner or ex-partner? No Within the last year, have y ou been kicked, hit, slapped, or otherwise physically hurt by your partner or ex-partner? No 06/25/2024 Within the last year, have y ou been raped or forced to have any kind of sexual activity by your partner or ex-partner? No 06/25/2024 PHQ-2 Answer Date Recorded Patient Health Questionnaire-2 Score 0 08/05/2024 Hunger Vital Sign Answer Date Recorded Within the past 12 months, y ou worried that your food would run out before you got the money to buy more. Never true 06/25/20 24 Within the past 12 months, t he food you bought just didn't last and you didn't have money to get more. Never true 06/25/2024 PRAPARE - Transportation Answer Date Re corded In the past 12 months, has l ack of transportation kept you from medical appointments or from getting medications? No 06/07 In the past 12 months, has l ack of transportation kept you from meetings, work, or from getting things needed for daily living? No 06/25/2024 Housing Stability Vital Sign Answer Seth e Recorded In the last 12 months, was t here a time when you were not able to pay the mortgage or rent on time? No 04/26/2024 In the last 12 months, how many places have you lived? 1 04/26/2024 In the last 12 months, was t here a time when you did not have a steady place to sleep or slept in a half-way (including now)? No 04/26/2024 PHQ-9 Answer Date Recorded Patient Health Questionnaire-9 Score 0 08/05/2024 Housing Stability Vital Sign Answer Seth e Recorded In the last 12 months, was t here a time when you were not able to pay the mortgage or rent on time? No 06/25/2024 In the past 12 months, how m any times have you moved where you were living? 1 06/25/2024 At any time in the past 12 m [facility], were you homeless or living in a half-way (including now)? No 06/25/2024 CAGE ASSESSMENT Answer Date Recorded Cage unable to access Not on file 06/25/2024 Cage max number of drinks Not on file 2023 Cage Beverages a week Not on file 06/25/2024 Have you ever felt you should CUT down on your d rinking? 0 06/25/2024 Have you been ANNOYED by people criticizing your drinking? 0 06/25/2024 Have you felt GUILTY about your drinking? 0 06/25/2024 Have you had a drink first t alyx in the morning ([employer]) to steady your nerves or to get rid of a hangover? 0 06/25/2024 CAGE Questionnaire Score 0 024 Utilities Answer Date Recorded In the past 12 months has th [facility], gas, oil, or water company threatened to shut off services in your home? No 06/25/2024 Sex and Gender Information Value Date Recorded Sex Assigned at Not on file Legal Sex Male 6:39 PM EDT Gender Identity Not on file Sexual Orientation Not on file Last Filed Vital Signs Vital Sign Reading Time Taken Comments Blood Pressure 107/82 08/05/2024 10:30 AM EST Pulse 78 08/05/2024 10:30 AM EST Temperature 36.4 C (97.5 F) 08/05/2024 10:30 AM EST Respiratory Rate 16 08/05/2024 10:30 AM EST Oxygen Saturation 99% 08/05/2024 10:30 AM EST Inhaled Oxygen Concentration - - Weight 98.4 kg (217 lb) 08/05/2024 10:30 AM EST Height 182.9 cm (6') 08/05/2024 10:30 AM EST Body Mass Index 29.43 08/05/2024 10:30 AM EST Plan of Treatment Health Maintenance Due Date Last Done Comments [facility]-Medicare Annual Wellness (AWV) 1955 [facility]-Infant/Child/Adol SDOH Screenings 1955 [id number] Vaccine (#1) 1962 Diabetes: Dental Exam 1967 [facility]-Hepatitis A Vaccines (1 of 2 - Risk 2-dose series) 1976 [facility]-Pneumococcal Vaccine: 50+ Years (1 of 2 - PCV) 1976 [facility]-Zoster Vaccines (1 of 2) 1976 CT Colonography 2002 Colonoscopy 2002 FIT-DNA 2002 FIT 2002 FOBT 2002 Sigmoidoscopy 2002 [facility]-Colorectal Cancer Screening 2002 [facility]-RSV Vaccine: 60+ Years or (1 - Risk 60-74 years 1-dose series) 2017 [facility]-Diabetes: Hemoglobin A1C 12/23/2024, 06/13/2024, 11/05/2023, Additional history exists [facility]- SDOH Screenings 12/24/2024 [facility]-Adult SDOH Screenings 12/24/2024 06/25/2024 [facility]-Influenza Vaccine (Season Ended) 2025 08/11/2018, 08/11/2018 [facility]-Depression Screening 08/05/2025 08/05/2024, 07/09 [facility]-DTaP,Tdap,and Td Vaccines (2 - Td or Tdap) 04/01/2033 04/01/2023, 10/13/2010, 10/13/2010, Additional history exists [facility]-Hepatitis C Screening Completed 06/24/2024, [facility]-Obesity Intervention Completed 025, 07/12/2024, 06/24/2024, Additional history exists HPV Vaccines Aged Out No longer eligi ble based on patient's age to complete this topic [facility]-HIB Vaccines Aged Out No longer e ligible based on patient's age to complete this topic [facility]-IPV Vaccines Aged Out No longer e ligible based on patient's age to complete this topic [facility]-Rotavirus Vaccines Aged Out No lo nger eligible based on patient's age to complete this topic Medical Devices Implanted Type Area Radiotelephone Technical Operator Device Identifier Shelf Expiration Date Model / Serial / Lot Embolic Trufill 1 Gm N Bca Liq - [id number] Implanted:Qty: 1 on 05/06/2023 by Abdoulaye James MD at [facility] [id number] 08/06/2024 [id number] / / [id number] Vip Vascular Closure Device 6 Fr - [id number] Implanted:Qty: 1 on 05/06/2023 by Abdoulaye James MD at [facility] [id number] 12/12/2023 [id number] / / [id number] Puraply Am 6x9 54 Sq Cm - [id number] Implanted:Qty: 1 on 03/16/2024 by Syed Jefferson MD at [facility] [id number] 01/03/2026 PURAPLY-COM [id number] / / [id number]. 1C Procedures Procedure Name Priority Date/Time Associated Diagnosis Comments HEMOGLOBIN A1C Routine 06/25/2024 3:24 AM EST HEPATITIS C ANTIBODY - ED W/REFLEX TO HCV QUANT PCR STAT 06/24/2024 11:48 AM EST from Last 3 Months or Most Recently Relevant to Health Maintenance Results * Hemoglobin A1c (06/25/2024 3:24 AM EST) Hemoglobin A1c 4.8 <5.7 % 06/25/2024 3:52 AM EST [facility] Blood Venous blood specimen / Unknown Venipuncture / Unknown 06/25/2024 3:24 AM EST 06/25/2024 3:34 AM EST Narrative [facility] - 06/25/2024 3:52 AM EST HA1C Interpretive Data: Diagnosis of Diabetes: Diabetic > or = 6.5% Pre-diabetic 5.7 to 6.4% Non-diabetic < or = 5.6% Glycemic Targets for Type I and Type II Diabetics: Non- Adults <7.0% Adults <6.0% Children and Adolescents <7.5% Source: [place] [employer]. Standards of medical care in diabetes,2017. Diabetes Care.2017:40 (suppl 1):S1-S135. HbA1c assay performed by an ion-exchange chromatography method that is certified traceable to the DCCT. Huang Hubbard MD LAB BLOOD ORDERABLES Final Re sult [facility] [address] [place] [address] * Hepatitis C Antibody - ED (06/24/2024 11:48 AM EST) Hepatitis C Antibody Negative Negative 06/24/2024 1:02 PM EST [facility] Blood Venous blood specimen / Unknown Venipuncture / Unknown 06/24/2024 11:48 AM EST 06/24/2024 12:16 PM EST us Craig MA LAB BLOOD ORDERABLES Final Res ult Performing Organization Address City/[facility]/ZIP Co de Phone Number [facility] [address] [place] [address] from Last 3 Months or Most Recently Relevant to Health Maintenance Additional Health Concerns Infection Onset Date Last Indicated ESBL Comment:Wound culture collected 11/05/2023 resulted positive for Escherichia coli. This patient will require contact precautions indefinitely. Do not resolve this infection. 11/05/2023 11/05/2023 ESBL Comment:Swab / Subcutaneous skin (specify site) Added: 11/09/23 by Wound Culture and Gram Stain (Collected 11/05/23) Onset date: 11/05/23 Comment: Wound culture collected 11/05/2023 resulted positive for Escherichia coli. This patient will require contact precautions indefinitely. Do not resolve this infection. 11/05/2023 06/29/2024 C. difficile 07/05/2024 07/05/[address] [facility] MEDICARE Advance Directives * Full Code (Latest Code Status on File) Date Activated Date Inactivated Comments 07/12/2024 4:37 PM * Full Code Date Activated Date Inactivated Comments 06/24/2024 4:09 PM 07/13/2024 10:03 AM Question Answer Comments Patient has decision-making capacity? Yes * Full Code Date Activated Date Inactivated Comments 06/24/2024 3:46 PM 07/12/2024 4:37 PM Question Answer Comments Patient has decision-making capacity? Yes * Full Code Date Activated Date Inactivated Comments 06/13/2024 5:59 AM 06/22/2024 12:57 PM Question Answer Comments Patient has decision-making capacity? Yes * Full Code Date Activated Date Inactivated Comments 04/24/2024 12:59 AM 04/30/2024 5:40 PM Question Answer Comments Patient has decision-making capacity? Yes Care Teams Cdl Program Coordinator Relationship Specialty Start Date End Date Pcp, [facility] [address] [place] [address] PCP - General Family Medicine 06/24/24 Addison Rizzo DO [address] [place] [id number] 06/24/24
--- OUTSIDE RECORDS SUMMARY | 2024-12-22 14:38 | XMS_ITS | Encounter Summary ---
Author Organization [facility] Address [address] [place] [address] Care Team Providers Care Tile Mason Name Role Phone Unavailable Primary Care Provider Unavailabl e Encounter Details Date Type Department Care Team (Late st Contact Info) Description 01/30/2019 Transcribed Document [facility] Family Medicine [facility] [place] [address] ProviderEmilia MD [address] [place], [place] [id number] Social History Tobacco Use Types Packs/Day Years Used Date Smoking Tobacco: Never Assessed Sex and Gender Information Value Date Recorded Sex Assigned at Not on file Legal Sex Male 5:19 PM CDT Gender Identity Not on file Sexual Orientation Not on file documented as of this encounter Miscellaneous Notes * Cerner Conversion Note - Historical ProviderMD - 01/30/2019 1:46 PM CDT UM Authorization Entered On: 01/30/2019 13:48 EDT Performed On: 01/30/2019 13:46 EDT by MIRYAM KOTHARI RN Primary Insurance Authorization Authorization and Policy Numbers : Insurance 1 Health Plan: [employer] Policy Number: [id number] Authorization Number: Insurance Primary Name : [employer] Policy Number: [id number] Authorization Status-Primary : Awaiting callback Authorized Service Begin Date-Primary : 01/29/2019 EDT Authorization Comments-Primary : Per Star notes Notify Payer of Admission - InProgress - faxed clinicals via cerner. Historical Authorization Comments-Primary : No Authorization Comments Found MIRYAM KOTHARI RN - 01/30/2019 13:46 EDT documented in this encounter Plan of Treatment Not on file documented as of this encounter Visit Diagnoses Not on filedocumented in this encounter
--- OUTSIDE RECORDS SUMMARY | 2024-12-22 14:38 | XMS_ITS | Data Portability ---
Author Organization [facility] ADMIN Address [address] [place] [address] Care Team Providers Care Para Professional Name Role Phone EBONIEMAMI Kuo Primary Care Provider Assessment No assessment recorded. [...] Organization Details Recorded Time Sensorineural hearing loss 40245509 Active 2022 SOCORRO REYNOSO, AUD [address] [facility], [place], [address] , [facility] & [place] 3 10:26:08 Problem Notes None recorded. Medical [...] tablet TAKE 1 TABLET BY MOUTH EVERY 12 HOURS NEEDED FOR PAIN active Not Available [...] Tobacco Smoking Status Never Smoker Lesa Bran [facility], [facility] 11/06/2022 13:01:36 Has Tobacco Cessation Counseling Been Provided? No [email or web address] Information not available 04/02/2023 Sex: Unknown Functional Status Question Answer Note LastModified by Organizat ion Details LastModified Time Do you use any illicit or recreational drugs? No [email or web address] Information not available 10/17/2022 Do you or have you ever used any other forms of tobacco or nicotine? No [email or web address] Information not available 04/02/2023 Mental Status None recorded. Family History Nothing Reported Notes:Mother - Fath er - Medical History No medical history recorded. Past Encounters Encounter ID Performer Location Encounter Start Date Encounter Closed Date Diagnosis/Indication Diagnosis SNOMED-CT Code Diagnosis ICD10 Code Diagnosis Note [id number] Joel Lopez MD [facility] [address] [place] [address],[address] [place] [address] 11/06/2022 12:44:51 11/06/2022 13:53:56 Recurrent urinary tract infection 290459587 N39.0 Increased frequency of urination 759925095 R35.0 Dysuria 13110201 R30.0 Atrophy of left kidney 256757459 N26.1 nonfunctio mason Chronic re nal insufficiency 291720504 N18.9 historical ly 37% right renal function and 0% on left. 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, chronic History of diabetes mellitus type 2 739223106 Z86.39 [id number] Joel Lopez MD [facility] [address] [place] [address],[address] [place] [address] 02/24/2023 15:38:26 02/28/2023 08:56:41 Recurrent urinary tract infection 575978168 N39.0 Increased frequency of urination 443847528 R35.0 Dysuria 38355384 R30.0 Atrophy of kidney 447559 005 N26.1 Chronic ki dney disease 856232612 N18.9 Nocturia 377867879 R35.1 Renal artery stenosis 30 1966305 I70.1 History of transient ischemic attack 254928478 Z86.73 Screening for malignant neoplasm of prostate 510887258 Z12.5 Balanitis xerotica obliterans 993104475 N48.0 Balanoposthitis 11491420 N47.6 mild, chronic History of diabetes mellitus 257552240 Z86.39 [id number] Kristin Goldstein NP, S [facility] [address] [place] [address],[address] [place] [address] 04/02/2023 13:28:21 04/02/2023 15:29:15 Recurrent urinary tract infection 335846025 N39.0 Will send urine for culture and sensitivit yRenal function panelOnce renal function panel is back will determine ? CT scan for imaging of kidneys. Labwork returned and BUN 20 and Creat 2.1. Will order CT scan of abd/pelvis without contrast Increased frequency of urination 608338991 R35.0 Dysuria 04261313 R30.0 Atrophy of kidney 833356 005 N26.1 Chronic ki dney disease 598212512 N18.9 Nocturia 473339544 R35.1 Renal artery stenosis 30 7272740 I70.1 History of transient ischemic attack 015322629 Z86.73 Balanitis xerotica obliterans 276673319 N48.0 History of diabetes mellitus 758060950 Z86.39 Long-term current use of anticoagulant 588465293 Z79.01 Microscopic hematuria 19 9175689 R31.29 [id number] CAITLYN POTTS [facility] [place] [id number] 04/09/2023 10:25:37 04/09/2023 10:26:32 Sensorineural hearing loss 28890993 H90.3 [id number] [facility] [place] [id number] 09/02/2023 15:01:16 09/02/2023 15:01:47 Sensorineural hearing loss 47963093 H90.3 [id number] [facility] P[facility] [place] [id number] 02/25/2024 13:33:35 02/25/2024 13:33:51 Sensorineural hearing loss 12158257 H90.3 [id number] CA[facility]N POTTS [facility] [place] [address] [place] [address] 08/31/2024 14:41:51 08/31/2024 15:05:55 Sensorineural hearing loss 14432253 H90.3 [id number] CA[facility]LYN P[facility]TS [facility] [facility], [place] [address] 09/22/2024 11:38:24 09/22/2024 11:43:16 Sensorineural hearing loss 91887909 H90.3 [id number] [facility] [facility], [facility] [place] [address] 11/03/2024 10:28:23 11/03/2024 10:33:28 Sensorineural hearing loss 35792077 H90.3 Health Concerns Section Related Observation LastModified by Organization Detai ls LastModified Time None Recorded Concern Status LastModified by Organization Details LastModified Time None Recorded Advance Directives Directive None Recorded Payers Insurance Date Sequence Insurance Name Policy Number Policy Amaro Covered Member ID Amaro Member ID Guarantor Name 04/21/2019 1 GABBIA Johnathan Parham [id number] Johnathan Parham 10/31/2024 1 [employer] - GOLD PLUS (MEDICARE REPLACEMENT/A DVANTAGE - HMO) Johnathan Parham [id number] Johnathan Parham Notes Date Note Type Note Provider Name and Address Organization Details Recorded Time 09/02/2023 text/html Patient was seen today for a hearing aid service. Cleaned and adjusted hearing aids this date. CAITLYN POTTS [address] , [place], [address], [facility] & [place] 09/02/2023 15:02:27 02/25/2024 text/html Patient was seen today for a hearing aid service. Cleaned and adjusted hearing aids this date. CAITLYN POTTS [address] , [place], [address], [facility] & [place] 02/25/2024 13:34:28 08/31/2024 text/html Patient was seen today for a hearing aid service. Cleaned and adjusted hearing aids this date. CAITLYN POTTS [address] , [place], [address], [facility] & [place] 08/31/2024 15:23:41 09/22/2024 text/html Patient was seen today for a hearing aid service. Cleaned and adjusted hearing aids this date. SOCORRO REYNOSO, CAITLYN [address], [place], [address], [facility] & [place] 09/22/2024 11:47:14 11/03/2024 text/html Patient was seen today for a hearing aid service. Cleaned and adjusted hearing aids this date. SOCORRO REYNOSO, CAITLYN [address], [place], [address], [facility] & [place] 11/03/2024 10:36:35
--- OUTSIDE RECORDS SUMMARY | 2024-12-22 14:38 | XMS_ITS | Encounter Summary ---
Author Organization [employer] [facility] Address [address] [place] [address] Care Team Providers Care Multiple Launch Rocket System Crewmember Name Role Phone Unavailable Primary Care Provider Unavailabl e Encounter Details Date Type Department Care Team (Late st Contact Info) Description 05/18/2019 Transcribed Document [facility] Family Medicine [address] [place] [address] ProviderEmilia MD [address] [place] [address] Social History Tobacco Use Types Packs/Day Years Used Date Smoking Tobacco: Never Assessed Sex and Gender Information Value Date Recorded Sex Assigned at Not on file Legal Sex Male 5:19 PM CDT Gender Identity Not on file Sexual Orientation Not on file documented as of this encounter Miscellaneous Notes * Cerner Conversion Note - Historical ProviderMD - 05/18/2019 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
--- OUTSIDE RECORDS SUMMARY | 2024-12-22 14:38 | XMS_ITS | Continuity of Care Document ---
Author Organization [facility] & [place], [facility] Address [address] [facility], [place] [address] Care Team Providers Care Fundraising Director Name Role Phone MAMI PAYTON Primary Care Provider Assessment No assessment recorded. [...] Organization Details Recorded Time Sensorineural hearing loss 70593615 Active 2022 SOCORRO REYNOSO, AUD [address] [facility], [place], [address] , [facility] & [place] 3 10:26:08 Problem Notes None [...] Social History Question Answer Notes LastModified by [employer] Details LastModified Time Tobacco Smoking Status Never Smoker Lesa Bran [facility], [place] - [facility] & [place] 11/06/2022 13:01:36 Has Tobacco Cessation Counseling Been Provided? No [email or web address] Information not available 04/02/2023 Sex: Unknown Functional Status Question Answer Note LastModified by [employer] Details LastModified Time Do you use any illicit or recreational drugs? No [email or web address] Information not available 10/17/2022 Do you or have you ever used any other forms of tobacco or nicotine? No Information not available 04/02/2023 Mental Status None recorded. Family History Nothing Reported Notes:Mother - Fath er - Medical History No medical history recorded. Past Encounters Encounter ID Performer Location Encounter Start Date Encounter Closed Date Diagnosis/Indication Diagnosis SNOMED-CT Code Diagnosis ICD10 Code Diagnosis Note [id number] [facility] [place] [address] 11/03/2024 10:28:23 11/03/2024 10:33:28 Sensorineural hearing loss 26457675 H90.3 Health Concerns Section Related Observation LastModified by Organization Detai ls LastModified Time None Recorded Concern Status LastModified by Organization Details LastModified Time None Recorded Payers Encounter Date Sequence Insurance Name Policy Number Policy Amaro Covered Member ID Amaro Member ID Guarantor Name 11/03/2024 1 [employer] - GOLD PLUS (MEDICARE REPLACEMENT/A DVANTAGE - HMO) Johnathan Parham [id number] Johnathan Parham Notes Date Note Type Note Provider Name and Address Organization Details Recorded Time 11/03/2024 text/html Patient was seen today for a hearing aid service. Cleaned and adjusted hearing aids this date. CAITLYN POTTS [address] [facility], [place], [address], [place] - [facility] - [place] & [place] 11/03/2024 10:36:35
--- OUTSIDE RECORDS SUMMARY | 2024-12-22 14:38 | XMS_ITS | Encounter Summary ---
Author Organization [facility] [employer] [facility] Address [address] [place] [address] Care Team Providers Care Shotblaster Name Role Phone Unavailable Primary Care Provider Unavailabl e Encounter Details Date Type Department Care Team (Late st Contact Info) Description 05/18/2019 Transcribed Document [facility] [place] [facility] [place] [address] ProviderEmilia MD [address] [place] [address] Social History Tobacco Use Types Packs/Day Years Used Date Smoking Tobacco: Never Assessed Sex and Gender Information Value Date Recorded Sex Assigned at Not on file Legal Sex Male 5:19 PM CDT Gender Identity Not on file Sexual Orientation Not on file documented as of this encounter Miscellaneous Notes * Cerner Conversion Note - Historical ProviderMD - 05/18/2019 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 History of Present Illness The patient presents with chest pain. The onset was just prior to arrival. The course/duration of symptoms is improving. Location: substernal. Radiating pain: none. The character of symptoms is tightness. The degree at onset was minimal. The degree at maximum was moderate. The degree at present is minimal. The exacerbating factor is exertion. There are relieving factors including rest and nitroglycerin. Risk factors consist of coronary artery disease and hypertension. Prior episodes: angina and coronary artery disease. Therapy today Nitroglycerin and Aspirin. Associated symptoms: none. Review of Systems Constitutional symptoms: No fever, Skin symptoms: No abrasions, Eye symptoms: Vision unchanged. ENMT symptoms: No sore throat, Respiratory symptoms: No shortness of breath, no cough, no hemoptysis. Cardiovascular symptoms: Chest pain. Gastrointestinal symptoms: No abdominal pain, no nausea, no vomiting. Genitourinary symptoms: No dysuria, Musculoskeletal symptoms: No back pain, Neurologic symptoms: No headache, no dizziness, no numbness. Psychiatric symptoms: No anxiety, Health Status Allergies: Allergic Reactions (Selected) Severity Not Documented Contrast Dye- No reactions were documented.. Medications: (Selected) Prescriptions Prescribed ReliOn/NovLIN 70/30 FlexPen subcutaneous suspension: 30 units, SubCutaneous, BIDAC, for 30 Day(s), 20 mL, 0 Refill(s) amLODIPine 5 mg oral tablet: 1 Tab, Oral, Daily, for 30 Day(s), 30 Tab, 0 Refill(s) hydrALAZINE 50 mg oral tablet: 1 Tab, Oral, TID, for 30 Day(s), 90 Tab, 0 Refill(s) Documented Medications Documented Coreg 25 mg oral [...] tablet: 1 Tab, Oral, Daily, 0 Refill(s) isosorbide mononitrate 30 mg oral tablet, extended release: 3 Tab, Oral, Daily, 0 Refill(s) rosuvastatin 40 mg oral tablet: 1 Tab, Oral, Daily, 30 Tab, 0 Refill(s). Past Medical/ Family/ Social History Surgical history: CORONARY ARTERY BYPASS GRAFT in 2004 at 50 Years. CHOLECYSTECTOMY ([id number]). CATARACT REMOVAL INSERTION OF LENS ([id number]). Right knee replacement. Hernia Repair. Carotid Endardectomy.. Family history: No family history items have been selected or recorded.. Social history: Social & Psychosocial Habits Alcohol 01/29/2019 Alcohol Use History, Social Habits No Alcohol Use in Last Twelve Months No Substance Abuse 01/29/2019 Recreational Drug Use History No Recreational Drug Use Last 12 Months No Tobacco 01/29/2019 Smoking Status Never (less than 100 in l Smokeless Tobacco Status Never Smokeless Tobacco Use History None . Problem list: Active Problems (6) CKD (chronic kidney disease) Diabetes mellitus GERD (gastroesophageal reflux disease) History of obstructive sleep apnea [place] (hard of hearing) Hypertension . Physical Examination Vital Signs Vital Signs/Vital Measures 05/18/2019 13:38 EST Systolic Blood Pressure 167 mmHg HI Diastolic Blood Pressure 82 mmHg Temperature Source Oral Temperature Mode Fahrenheit Temperature, Fahrenheit 97.5 Deg F Clinical Temperature, C 36.4 Deg C Peripheral Pulse Rate 75 bpm Respiratory Rate 20 Breaths/Min Oxygen Saturation 95 % Oxygen Therapy Mode Room air . Oxygen Saturation 05/18/2019 13:38 EST Oxygen Saturation 95 % . Skin: Warm, no rash. Eye: Normal conjunctiva. Neck: Supple, no tenderness. Cardiovascular: Regular rate and rhythm, No murmur. Respiratory: Lungs are clear to auscultation, breath sounds are equal. Gastrointestinal: Soft, Nontender, Non distended. Musculoskeletal: Normal ROM, no deformity. Neurological: Alert and oriented to person, place, time, and situation, No focal neurological deficit observed. Medical Decision Making Differential Diagnosis: Non-ST elevation myocardial infarction, unstable angina, angina, atypical chest pain, pneumonia, gastroesophageal reflux disease, congestive heart failure. Rationale: 63-year-old male presenting to the emergency department with chest discomfort. Patient was at cardiac rehabilitation today when he started getting some tightness in his chest. Patient doesn't history of CAD in the past. He had a triple bypass followed by stenting in 2005. Workup will be initiated at this time. Patient is currently pain-free.. Documents reviewed: Emergency department nurses' notes. Electrocardiogram: EKG was reviewed at 1342. Normal ventricular rate is 64 bpm. pr [id number] ms. Normal QTC. Sinus rhythm with no specific changes. Results review: Lab results : Lab Results 05/18/2019 17:22 EST Troponin I Ultra <0.015 ng/mL 05/18/2019 14:22 EST Sodium Level 137 mmol/L Potassium Level 4.3 mmol/L Chloride Level 106 mmol/L Carbon Dioxide Level 28 mmol/L Anion Gap 7 LOW Glucose Level 286 mg/dL HI Blood Urea Nitrogen 17 mg/dL Creatinine Level 1.40 mg/dL HI eGFR >60 mL/min/1.73m2 eGFR NonAfrican 52 mL/min/1.73m2 LOW Bun/Creatinine 12.1 Calcium Level 8.8 mg/dL Magnesium Level 1.8 mg/dL Troponin I Ultra <0.015 ng/mL ProBNP 416 pg/mL HI WBC 5.4 K/uL RBC 4.27 Million/uL Hgb 12.5 g/dL LOW Hct 39.3 % LOW MCV 92.0 fL MCH 29.3 pg MCHC 31.8 Gram/dL LOW Platelet Count 160 K/uL LOW MPV 11.4 fL RDW 15.3 % HI Neut % 61.9 % Neut # 3.36 K/uL Lymph % 26.0 % Lymph # 1.41 x10(3)/uL [place] % 8.3 % [place] # 0.45 K/uL Eos % 2.8 % Eos # 0.15 x10(3)/uL Baso % 0.6 % Baso # 0.03 x10(3)/uL Slide Review No IG# 0.02 x10(3)/uL IG% 0.40 % PT 10.0 Second(s) INR 1.0 PTT 26.8 Second(s) . Radiology results: Radiology Results (Last 48 hours) [id number] -- 05/18/2019 13:36 CR Chest 1 Vw Portable (05/18/2019 14:25) Result: PORTABLE CHESTHISTORY: Precordial chest pain.COMPARISON: 01/30/2019.FINDINGS: The heart is normal in size. The mediastinum is unremarkable.The patient is status post median sternotomy. The lungs are clear.There is no pneumothorax. The osseous structures are unremarkable. IMPRESSION: No acute cardiopulmonary process.Images reviewed, interpreted, and dictated by Dr. Verónica Parish.Transcribed by Rivas Oropeza PA-C.I have personally viewed, interpreted and dictated the examination. Ihave read and agree with the above final transcribed report. . Reexamination/ Reevaluation Time: 05/18/2019 18:13:00 . Notes: On reexamination, patient is chest pain-free. No elevated troponin. No changes in EKG. At this time patient is stable for discharge. He does need to follow-up with his desktop support manager in 24 hours. He is have any changes symptoms he is to return the emergency department immediately. Verbalized understanding.. Impression and Plan Diagnosis Angina pectoris - Discharge, Medical Plan Condition: Improved. Disposition: Discharged Admit/Transfer/Discharge: Discharge (Order): Start: 05/18/2019 18:13 EST, Discharge to: Home. Patient was given the following educational materials: Angina Pectoris. Follow up with: Patient Resource Center Within As needed Patient states Bridgette Boston is their Primary Care Provider. Please contact the Patient Resource Center at if you need assistance scheduling a Specialist or Primary Care Provider in the future.; BRIDGETTE BOSTON Within 2 to 3 days. Counseled: Patient, Family, Regarding diagnosis, Regarding diagnostic results, Regarding treatment plan, Regarding prescription, Patient indicated understanding of instructions. documented in this encounter Plan of Treatment Not on file documented as of this encounter Visit Diagnoses Not on filedocumented in this encounter
--- OUTSIDE RECORDS SUMMARY | 2024-12-22 14:38 | XMS_ITS | Encounter Summary ---
Author Organization [employer] [facility] Address [address] [place] [address] Care Team Providers Care Beta Tester Name Role Phone Unavailable Primary Care Provider Unavailabl e Encounter Details Date Type Department Care Team (Late st Contact Info) Description 05/18/2019 Transcribed Document [facility] Family Medicine [facility] [place] [address] ProviderEmilia MD [address] [place] [address] Social History Tobacco Use Types Packs/Day Years Used Date Smoking Tobacco: Never Assessed Sex and Gender Information Value Date Recorded Sex Assigned at Not on file Legal Sex Male 5:19 PM CDT Gender Identity Not on file Sexual Orientation Not on file documented as of this encounter Miscellaneous Notes * Cerner Conversion Note - Historical ProviderMD - 05/18/2019 1:36 PM HAND I THERMAL CUTTER ED Triage Entered On: 05/18/2019 13:41 EST Performed On: 05/18/2019 13:38 EST by Shelby Jefferson RN ED Triage Across the Room Triage Date/Time : 05/18/2019 13:38 EST Chief Complaint : pt was at cardiac rehab when he started to have chest pain, 324 asa and x2 0.4mg SL nitro en route Shelby Jefferson RN - 05/18/2019 13:38 EST DCP GENERIC CODE Tracking Acuity : 2 - Emergent Tracking Group : [facility] ED Shelby Jefferson RN - 05/18/2019 13:38 EST Mode of Arrival : Stretcher Transported to ED by : Ambulance/ALS EMS Service : [facility] To Room Via : Stretcher Accompanied By : Unaccompanied SUPERVISOR HOME ENERGY CONSULTANT Medications and Interventions : Document ED Vital Signs : Document Height & Weight : Document ED Allergies : Document ED Reason for Visit : Document Tetanus Immunization : Unknown Vascular Nurse Needed : No Shelby Jefferson RN - 05/18/2019 13:38 EST Infectious Disease History Infectious Disease History : Chicken pox/Shingles Isolation Needed : Contact Fever/Chills Last 48 Hours : No Travel To Regions with Travel Advisories : No Travel Outside [place] Within Last 30 Days : No Contact With Traveler to Advisory Region : No Tuberculosis Symptoms : None Shelby Jefferson RN - 05/18/2019 13:38 EST Vital Signs ED Temperature Source : Oral Temperature Mode : Fahrenheit Temperature, Fahrenheit : 97.5 Deg F Clinical Temperature, C : 36.4 Deg C Oxygen Therapy Mode : Room air Peripheral Pulse Rate : 75 bpm Respiratory Rate : 20 Breaths/Min Systolic Blood Pressure : 167 mmHg (HI) Diastolic Blood Pressure : 82 mmHg Oxygen Saturation : 95 % Shelby Jefferson RN - 05/18/2019 13:38 EST Allergy (As Of: 05/18/2019 13:41:21 EST) Allergies (Active) Contrast Dye Estimated Onset Date: Unspecified ; Created By: Ana Villeda Rn; Reaction Status: Active ; Category: Other ; Substance: Contrast Dye ; Updated By: Ana Villeda Rn; Reviewed Date: 05/18/2019 13:40 EST Diagnosis Control ED (As Of: 05/18/2019 13:41:21 EST) Problems(Active) CKD (chronic kidney disease) (SNOMED CT :6110475375 ) Name of Problem: CKD (chronic kidney disease) ; Recorder: Ana Villeda RN; Confirmation: Confirmed ; Classification: Patient Stated ; Code: [id number] ; Contributor System: [employer] ; Last Updated: 01/29/2019 22:37 EDT ; Life Cycle Date: 01/29/2019 ; Life Cycle Status: Active ; Vocabulary: SNOMED CT Diabetes mellitus (SNOMED CT :807295543 ) Name of Problem: Diabetes mellitus ; Recorder: Ana Villeda RN; Confirmation: Confirmed ; Classification: Patient Stated ; Code: [id number] ; Contributor System: [employer]Chart ; Last Updated: 01/29/2019 22:37 EDT ; Life Cycle Date: 01/29/2019 ; Life Cycle Status: Active ; Vocabulary: SNOMED CT GERD (gastroesophageal reflux disease) (SNOMED CT :092933099 ) Name of Problem: GERD (gastroesophageal reflux disease) ; Recorder: Ana Villeda RN; Confirmation: Confirmed ; Classification: Patient Stated ; Code: [id number] ; Contributor System: PowerChart ; Last Updated: 01/29/2019 22:37 EDT ; Life Cycle Date: 01/29/2019 ; Life Cycle Status: Active ; Vocabulary: SNOMED CT History of obstructive sleep apnea (IMO :33049872 ) Name of Problem: History of obstructive sleep apnea ; Recorder: SYSTEM, SYSTEM; Confirmation: Confirmed ; Classification: Medical ; Code: [id number] ; Last Updated: 01/29/2019 22:48 EDT ; Life Cycle Date: 01/29/2019 ; Life Cycle Status: Active ; Vocabulary: IMO NONDALTON (hard of hearing) (SNOMED CT :63253012 ) Name of Problem: NONDALTON (hard of hearing) ; Recorder: Ana Villeda RN; Confirmation: Confirmed ; Classification: Patient Stated ; Code: [id number] ; Contributor System: [employer] ; Last Updated: 01/29/2019 22:37 EDT ; Life Cycle Date: 01/29/2019 ; Life Cycle Status: Active ; Vocabulary: SNOMED CT Hypertension (SNOMED CT :3692396570 ) Name of Problem: Hypertension ; Recorder: Ana Villeda RN; Confirmation: Confirmed ; Classification: Patient Stated ; Code: [id number] ; Contributor System: [employer] ; Last Updated: 01/29/2019 22:37 EDT ; Life Cycle Date: 01/29/2019 ; Life Cycle Status: Active ; Vocabulary: SNOMED CT Diagnoses(Active) Chest pain Date: 05/18/2019 ; Diagnosis Type: Reason For Visit ; Confirmation: Complaint of ; Clinical Dx: Chest pain ; Classification: Medical ; Clinical Service: Emergency medicine ; Code: PNED ; Probability: 0 ; Diagnosis Code: [id number] ED Height and Weight Height Source : Estimated Height Entry Format : [place] Height, Feet : 6 ft(Converted to: 183 cm, 72 Inch) Height, Inches : 2 Inch(Converted to: 0 ft 2 Inch, 5.08 cm) Clinical Height : 187.96 cm Weight Source, ED : Critical estimated dosing weight Weight Entry Format : [place] Weight, Pounds : 320 lb Clinical Dosing Weight : 145.45 kg Body Surface Area (BSA) : 2.66 m2 Body Mass Index : 41.2 kg/m2 (>HHI) [place] Body Weight (IBW) : 81.16 kg Shelby Jefferson RN - 05/18/2019 13:38 EST SUPERVISOR HOME ENERGY CONSULTANT Medications and Interventions Treatments Prior to Arrival : Other: 20 G right AC; fsbs 346 Shelby Jefferson RN - 05/18/2019 13:38 EST Electronically signed by [facility] Conversion Mobility Architect Cerner at 10/22/2022 11:22 PM CDT documented in this encounter Plan of Treatment Not on file documented as of this encounter Visit Diagnoses Not on filedocumented in this encounter
--- OUTSIDE RECORDS SUMMARY | 2024-12-22 14:38 | XMS_ITS | Encounter Summary ---
Author Organization [facility] Address [address] [place] [address] Care Team Providers Care Shipyard Laborer Name Role Phone Addison Rizzo DO Primary Care Provider [phone] Pcp, No Primary Care Provider Unavailabl e Addison Rizzo DO Unavailable [phone] Brooklyn Redmond LPN Unavailable Unavailable Encounter Details Date Type Department Care Team (Late st Contact Info) Description 06/12/2024 Lab Requisition [facility] [address] [place] [address] Julien Matthews [address] [place] [address] Encounter for general adult medical examination without abnormal findings Social History Tobacco Use Types Packs/Day Years Used Date Smoking Tobacco: Never Passive Smoke Exposure: Never Smokeless Tobacco: Never Alcohol Use Standard Drinks/Week Comments Not Currently 0 (1 standard drink = 0.6 oz pure alcohol) Alcoholic Drinks/day: Former consumption of alcohol Humiliation, Afraid, Rape, and Kick questionnair e Answer Date Recorded Within the last year, have y ou been afraid of your partner or ex-partner? No 06/14/2024 Within the last year, have y ou been humiliated or emotionally abused in other ways by your partner or ex-partner? No Within the last year, have y ou been kicked, hit, slapped, or otherwise physically hurt by your partner or ex-partner? No 06/14/2024 Within the last year, have y ou been raped or forced to have any kind of sexual activity by your partner or ex-partner? No 06/14/2024 PHQ-2 Answer Date Recorded Patient Health Questionnaire-2 Score 0 05/27/2024 Hunger Vital Sign Answer Date Recorded Within the past 12 months, y ou worried that your food would run out before you got the money to buy more. Never true 06/14/20 24 Within the past 12 months, t he food you bought just didn't last and you didn't have money to get more. Never true 06/14/2024 PRAPARE - Transportation Answer Date Re corded In the past 12 months, has l ack of transportation kept you from medical appointments or from getting medications? No 03/2024 In the past 12 months, has l ack of transportation kept you from meetings, work, or from getting things needed for daily living? No 06/14/2024 Housing Stability Vital Sign Answer Seth e [...] place to sleep or slept in a senior care (including now)? No 04/26/2024 PHQ-9 Answer Date Recorded Patient Health Questionnaire-9 Score 0 05/27/2024 Housing Stability Vital Sign Answer Seth e Recorded In the last 12 months, was t here a time when you were not able to pay the mortgage or rent on time? No 06/14/2024 In the past 12 months, how m any times have you moved where you were living? 1 06/14/2024 At any time in the past 12 m [facility], were you homeless or living in a senior care (including now)? No 06/14/2024 CAGE ASSESSMENT Answer Date Recorded Cage unable to access Not on file 09/05/2023 Cage max number of drinks Not on file 2023 Cage Beverages a week Not on file 09/05/2023 Have you ever felt you should CUT down on your d rinking? 0 09/05/2023 Have you been ANNOYED by people criticizing your drinking? 0 09/05/2023 Have you felt GUILTY about your drinking? 0 09/05/2023 Have you had a drink first t alyx in the morning (EYE-ORAL HEALTH THERAPIST) to steady your nerves or to get rid of a hangover? 0 09/05/2023 CAGE Questionnaire Score 0 024 Utilities Answer Date Recorded In the past 12 months has [employer], [employer], oil, or water [employer] threatened to shut off services in your home? No 06/14/2024 Sex and Gender Information Value Date Recorded Sex Assigned at Not on file Legal Sex Male 6:39 PM EDT Gender Identity Not on file Sexual Orientation Not on file documented as of this encounter Functional Status * Calculated C-SSRS Risk Score (Lifetime/Recent) Answer Date of Assessment Author No Risk Indicated 06/15/2024 9:00 PM Hector Cardoso RN * Question Answer Date of Assessment Author 1. Wish to be (Past 1 Month) No 024 9:00 PM Traci Cardoso RN 2. Non-Specific Active Suici kayce Thoughts (Past 1 Month) No 06/15/2024 9:00 PM Traci Cardoso RN 6. Suicidal Behavior (Lifetime) No 9:00 PM Traci Cardoso RN documented as of this encounter Plan of Treatment Not on file documented as of this encounter Procedures Procedure Name Priority Date/Time Associated Diagnosis Comments BODY FLUID CELL COUNT W/ MANUAL DIFFERENTIAL Routine 06/12/2024 5:00 PM EST Encounter for general adult medical examination without abnormal findings BODY FLUID, CYTOSPIN, PATHOLOGIST INTERPRETATION Routine 06/12/2024 5:00 PM EST Encounter for general adult medical examination without abnormal findings JOINT FLUID CRYSTALS Routine 06/12/2024 5:00 PM EST Encounter for general adult medical examination without abnormal findings BODY FLUID CELL COUNT W/O DIFF Routine 06/12/2024 5:00 PM EST Encounter for general adult medical examination without abnormal findings documented in this encounter Results * Body fluid, cytospin, pathologist interpretation (06/12/2024 5:00 PM EST) Specimen Type Joint Fluid LAB HEMATOLOGY METHOD 06/14/2024 5:35 PM EST [facility] Specimen Source, Body Fluid Synovial Fluid (type in source) LAB HEMATOLOGY METHOD 06/14/2024 5:35 PM EST [facility] Clinical Diagnosis, Body Fluid Pyogenic arthritis of left knee joint LAB HEMATOLOGY METHOD 06/14/2024 5:35 PM EST [facility] Interpretation , Body Fluid Acute inflammatory cells No pathogenic organisms seen Correlation with microbiology studies recommended Moderate blood A resident was involved in the service. I attest I examined the relevant preparations for the specimens and confirmed the diagnosis or interpretation. 06/14/2024 5:35 PM EST [facility] Pathologist Signature, Body Fluid 06/14/2024 5:35 PM EST [facility] Comment:Reviewed by: Salome thakur MD LAB CP ASR DISCLAIMER Yes 06/14/2024 5:35 PM EST [facility] Joint Fluid Synovial structure / Unknown 06/12/2024 5:00 PM EST 06/13/2024 5:02 AM EST Julien Matthews LAB BODY FLUIDS AND STOOLS ORDER VANESSA Final Result [facility] [address] [place] [address] * (ABNORMAL) Body Fluid Cell Count w/ Diff (06/12/2024 5:00 PM EST) Color, Body fluid Yellow LAB HEMATOLOGY METHOD 06/13/2024 8:26 AM EST [facility] Appearance, Body fluid Cloudy(A) LAB HEMATOLOGY METHOD 06/13/2024 8:26 AM EST [facility] Volume, Body fluid 4.0 cc LAB HEMATOLOGY METHOD 06/13/2024 8:26 AM EST [facility] Fluid Container Specimen received in miscellaneous container LAB HEMATOLOGY METHOD 06/13/2024 8:26 AM EST [facility] Red Blood Cell Count, Body fluid 10,000 uL LAB HEMATOLOGY METHOD 06/13/2024 8:26 AM EST [facility] Total Nucleated Cell Count, Body fluid >100,000 uL LAB HEMATOLOGY METHOD 06/13/2024 8:26 AM [facility] Neutrophils %, Body fluid 90 % LAB HEMATOLOGY METHOD 06/13/2024 8:26 AM [facility] Lymphocytes %, Body fluid 3 % LAB HEMATOLOGY METHOD 06/13/2024 8:26 AM [facility] Monocytes/Macr ophages %, Body fluid 7 % LAB HEMATOLOGY METHOD 06/13/2024 8:26 AM EST [facility] Eosinophils %, Body fluid 0 % LAB HEMATOLOGY METHOD 06/13/2024 8:26 AM [facility] Lining/Mesothe lial Cells %, Body fluid 0 % LAB HEMATOLOGY METHOD 06/13/2024 8:26 AM [facility] Neutrophils Absolute (PMN), Body fluid >90,000 uL LAB HEMATOLOGY METHOD 06/13/2024 8:26 AM EST [facility] Lymphocytes Absolute, Body fluid >3,000 uL LAB HEMATOLOGY METHOD 06/13/2024 8:26 AM [facility] Monocytes/Macr ophages Absolute, Body fluid >7,000 uL LAB HEMATOLOGY METHOD 06/13/2024 8:26 AM [facility] Eosinophils Absolute, Body fluid 0 uL LAB HEMATOLOGY METHOD 06/13/2024 8:26 AM [facility] Basophils Absolute, Body fluid 0 uL LAB HEMATOLOGY METHOD 06/13/2024 8:26 AM [facility] Lining/Mesothe lial Cells Absolute, Body fluid 0 uL LAB HEMATOLOGY METHOD 06/13/2024 8:26 AM [facility] Basophils %, Body fluid 0 % LAB HEMATOLOGY METHOD 06/13/2024 8:26 AM [facility] Joint Fluid Synovial structure / Unknown 06/12/2024 5:00 PM EST 06/13/2024 5:02 AM EST Julien Matthews LAB BODY FLUIDS AND STOOLS ORDERABLES NO SPECIMEN TYPE/SOURCE Final Result [facility] [address] [place] [address] * (ABNORMAL) Body Fluid Cell Count W/O Diff (06/12/2024 5:00 PM EST) Specimen Source, Body Fluid Synovial Fluid (type in source) 06/12/2024 8:21 PM EST [facility] Specimen Type Joint Fluid 06/12/2024 8:21 PM EST [facility] Color, Body fluid Yellow LAB HEMATOLOGY METHOD 06/12/2024 8:21 PM EST [facility] Appearance, Body fluid Cloudy(A) LAB HEMATOLOGY METHOD 06/12/2024 8:21 PM EST [facility] Volume, Body fluid 4.0 cc LAB HEMATOLOGY METHOD 06/12/2024 8:21 PM EST [facility] Red Blood Cell Count, Body fluid 10,000 uL LAB HEMATOLOGY METHOD 06/12/2024 8:21 PM EST [facility] Total Nucleated Cell Count, Body fluid >100,000 uL LAB HEMATOLOGY METHOD 06/12/2024 8:21 PM EST [facility] Fluid Container Specimen received in miscellaneous container LAB HEMATOLOGY METHOD 06/12/2024 8:21 PM EST [facility] Joint Fluid Synovial structure / Unknown 06/12/2024 5:00 PM EST 06/12/2024 7:43 PM EST Julien Matthews LAB BODY FLUIDS AND STOOLS ORDER VANESSA Final Result Performing Organization Address City/[facility] Co de Phone Number [facility] [address] [place] [address] * Joint Fluid Crystals (06/12/2024 5:00 PM EST) Crystals, Joint Fluid No Crystals Seen No Crystals Present 06/12/2024 11:03 PM EST [facility] Joint Fluid 06/12/2024 5:0 0 PM EST 06/12/2024 7:43 PM EST Julien Matthews LAB BODY FLUIDS AND STOOLS ORDER VANESSA Final Result Performing Organization Address [facility]/ZIP Co de Phone Number [facility] [address] [place] [address] documented in this encounter Visit Diagnoses Diagnosis Encounter for general adult medical examination without abnormal findings documented in this encounter Additional Health Concerns Infection Onset Date Last Indicated Resolved Time ESBL Comment:Wound culture collected 11/05/2023 resulted positive [...] Do not resolve this infection. 11/05/2023 06/29/2024 Gastrointestinal Rule-Out 06/19/2024 06/19/2024 5:34 PM EST C. difficile Rule-Out Comment:No liquid Stools for 24 hours, does not fit criteria for C-diff sample test. 06/19/2024 06/19/2024 06/20/2024 5:[address] COVID-19 Rule-Out 06/24/2024 06/24/2024 06/24/2024 1:17 PM EST C. difficile Rule-Out 07/05/2024 07/05/20242023 8:42 AM EST C. difficile 07/05/2024 07/05/2024 Assessment Noted Time PHQ-9 Depression Total Score: 0 05/27/20 8:08 AM EST A fall risk assessment has been complete d for the patient 05/27/2024 8:10 AM EST A Body Mass Index follow-up plan has been documented for the patient 06/10/2024 2:50 PM EST documented as of this encounter Care Teams Shipyard Laborer Relationship Specialty Start Date End Date Addison Rizzo DO [address] [place] [address] PCP - General 04/26/24 06/23/24 [place] [address] PCP - General Family Medicine 06/24/24 Addison Rizzo DO [address] [place] [address] 06/24/24 Brooklyn Redmond LPN [employer] [place] [address] TCM Nurse 06/23/24 07/23/24 documented as of this encounter
--- OUTSIDE RECORDS SUMMARY | 2024-12-22 14:38 | XMS_ITS | Referral Summary ---
Author Organization [employer] Address [address] [place] [address] Care Team Providers Care Remote Encoding Center Manager Name Role Phone Unavailable Primary Care Provider [...]
--- OUTSIDE RECORDS SUMMARY | 2024-12-22 14:38 | XMS_ITS | Encounter Summary ---
Author Organization [employer] Address [address] [place] [address] Care Team Providers Care Research And Development Tester Name Role Phone Unavailable Primary Care Provider Unavailabl e Encounter Details Date Type Department Care Team (Late st Contact Info) Description 01/29/2019 Transcribed Document [facility] Family Medicine [facility] [place] [address] ProviderEmilia MD [address] [place] [address] Social History Tobacco Use Types Packs/Day Years Used Date Smoking Tobacco: Never Assessed Sex and Gender Information Value Date Recorded Sex Assigned at Not on file Legal Sex Male 5:19 PM CDT Gender Identity Not on file Sexual Orientation Not on file documented as of this encounter Miscellaneous Notes * Cerner Conversion Note - Emilia ProviderMD - 01/29/2019 9:42 PM CDT Education-(VTE) / (DVT) Entered On: 01/29/2019 22:49 EDT Performed On: 01/29/2019 22:48 EDT by Ana Villeda Rn Teaching/Learning Assessment Barriers To Learning : None evident Individuals Taught : Patient Readiness to Learn : Cooperative Highest Level of Education : High school Baseline Knowledge of Topic : Limited Readiness to Learn : Explanation Learning Style Preferences Patient : None Learning Style Preferences Family : None Ana Villeda Rn - 01/29/2019 22:48 EDT Education Topics: VTE/DVT Education Topics: VTE/DVT Activity Limitations/Expectations : Verbalizes understanding Antiembolic hose : Verbalizes understanding VTE/DVT prophylaxis : Verbalizes understanding Foot Pumps : Verbalizes understanding Medications : Verbalizes understanding Sequential Compression Device : Verbalizes understanding Smoking Cessation : Verbalizes understanding Risk for developing a VTE : Verbalizes understanding Signs and symptoms of a VTE : Verbalizes understanding Treatment/prophylaxis for VTE : Verbalizes understanding Encourage early ambulation : Verbalizes understanding Ana Villeda Rn - 01/29/2019 22:48 EDT documented in this encounter Plan of Treatment Not on file documented as of this encounter Visit Diagnoses Not on filedocumented in this encounter
--- OUTSIDE RECORDS SUMMARY | 2024-12-22 14:38 | XMS_ITS | Encounter Summary ---
Author Organization [employer] Address [address] [place] [address] Care Team Providers Care Career Specialist Name Role Phone Unavailable Primary Care Provider Unavailabl e Encounter Details Date Type Department Care Team (Late st Contact Info) Description 05/18/2019 Transcribed Document [facility] [place] [place] Family Medicine [address] [place] [address] ProviderEmilia MD [address] [place] [address] Social History Tobacco Use Types Packs/Day Years Used Date Smoking Tobacco: Never Assessed Sex and Gender Information Value Date Recorded Sex Assigned at Not on file Legal Sex Male 5:19 PM CDT Gender Identity Not on file Sexual Orientation Not on file documented as of this encounter Miscellaneous Notes * Cerner Conversion Note - Historical ProviderMD - 05/18/2019 1:36 PM REFORESTATION WORKER [place] Suicide Severity Rating Scale (C-SSRS) Entered On: 05/18/2019 14:44 EST Performed On: 05/18/2019 14:42 EST by ERICA MONROY RN [place] Suicide Severity Rating Scale (C-SSRS) CSSRS Past Month Wish to be : No CSSRS Past Month Suicidal Thoughts : No CSSRS Lifetime Suicide Behavior : No Suicide Severity Rating Score : 0 Suicide Severity Rating : No Additional Care Required at this time ERICA MONROY RN - 05/18/2019 14:42 EST documented in this encounter Plan of Treatment Not on file documented as of this encounter Visit Diagnoses Not on filedocumented in this encounter
--- OUTSIDE RECORDS SUMMARY | 2024-12-22 14:38 | XMS_ITS | Encounter Summary ---
Author Organization [employer] Address [address] [place] [id number] Care Team Providers Care Child Care Cook Name Role Phone Unavailable Primary Care Provider Unavailabl e Encounter Details Date Type Department Care Team (Late st Contact Info) Description 01/29/2019 Transcribed Document [facility] [place] [facility] [place] [address] ProviderEmilia MD [address] [place] [address] Social History Tobacco Use Types Packs/Day Years Used Date Smoking Tobacco: Never Assessed Sex and Gender Information Value Date Recorded Sex Assigned at Not on file Legal Sex Male 5:19 PM CDT Gender Identity Not on file Sexual Orientation Not on file documented as of this encounter Miscellaneous Notes * Cerner Conversion Note - Historical ProviderMD - 01/29/2019 9:34 PM CDT Admission History, Adult Entered On: 01/29/2019 22:48 EDT Performed On: 01/29/2019 22:48 EDT by Ana Villeda Rn Advance Directive Patient has Advance Directive *Q : No, patient refuses Advance Directive information Ana Villeda Rn - 01/29/2019 22:41 EDT Anesthesia/Transfusion History Family History of Anesthesia Reaction : Prior transfusion without reaction Blood Transfusion Acceptable to Patient : Yes Transfusion History : Prior anesthesia without reaction Family History of Anesthesia Reaction : None Intubation History : Unknown Ana Villeda Rn - 01/29/2019 22:41 EDT Anticipated Discharge Needs Discharge To, Anticipated : Home Anticipated Discharge Needs at This Time : Outpatient follow-up Ana Villeda Rn - 01/29/2019 22:41 EDT Education Topics, Admission Orientation DCP GENERIC CODE Advance Directives : Verbalizes understanding Allergy Band Applied : Verbalizes understanding Assessment/Vital Signs : Verbalizes understanding Bed Control : Verbalizes understanding Call Light : Verbalizes understanding Confidentiality : Verbalizes understanding Diet/Room Service : Verbalizes understanding Fall Prevention : Verbalizes understanding Hand Hygiene : Verbalizes understanding Healthcare Provider Visit : Verbalizes understanding ID Band Applied : Verbalizes understanding Isolation Precautions : Verbalizes understanding Orientation to Room/Bathroom : Verbalizes understanding Patient Bill of Rights : Verbalizes understanding Patient Rights/Responsibilities : Verbalizes understanding Patient Safety : Verbalizes understanding Personal Privacy Code : Verbalizes understanding Rapid Response Initiated by Patient/Family : Verbalizes understanding Rounding : Verbalizes understanding Siderails use/risks : Verbalizes understanding Skin Precautions : Verbalizes understanding Smoking Policy : Verbalizes understanding Telemetry Monitoring : Verbalizes understanding Television/Phone : Verbalizes understanding Visiting Policy : Verbalizes understanding Ana Villeda Rn - 01/29/2019 22:41 EDT Functional Assessment Living Situation : Home Patient Lives With : Significant other(s) Persons Assisting Patient at Home : Significant other(s) Current Daily Living Assistance : None Sensory Deficits : None Mobility Assistance Prior to Admission : Independent BEAVER Hx Falls Immediate/Within 3 Months : No Current Home Treatments : Blood glucose monitoring, CPAP Home Equipment : CPAP unit Ana Villeda Rn - 01/29/2019 22:41 EDT General Info Arrived From : Emergency department 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 Support Person/Patient Assistant Plant Manager : No Want Family/Rep/Phys Notified of Admit : No Emergency Contact #1 : Samara Carey Emergency Contact #1 Emergency Contact #1 Relationship : Girlfriend Emergency Contact #2 : N/a Emergency Contact #2 Phone Number : N/a Emergency Contact #2 Relationship : N/a Information Obtained From : Patient Primary Language : Mauritian Preferred Communication Mode : Verbal Communication Barrier : None Objects to Sharing Info w Family : No Currently Lactating : N/A Clinical Trials Participant *Q : None CTP, None *Q : Yes Ana Villeda Rn - 01/29/2019 22:41 EDT Fall Risk Scales ABCs Fall Injury Risk Identification : Coagulation ABC Fall Injury Risk : Moderate to high injury risk Injury Moderate to High Risk Interventions : Specialty low bed, Supervise toileting as indicated, Transport methods appropriate to patient BEAVER Hx Falls Immediate/Within 3 Months : No Beaver Secondary Diagnosis : No BEAVER Use of Ambulatory Aid : None BEAVER IV Therapy or IV Access : Yes Beaver Gait/Transferring : Normal, bedrest, immobile Beaver Mental Status : Oriented to own ability Beaver Fall Risk Score : 20 BEAVER Fall Scale Risk Level : 0-24 Low Risk [place] Fall Interventions : Adequate lighting, Bed in low position, Call device within reach, Hourly comfort/safety rounds, Non-slip footwear, Personal items within reach, Reinforced to call for assistance before getting out of bed, Room free of clutter/spills, Upper side-rails up, Wheels locked, Wires/Cords secured Fall Moderate to High Risk Interventions : Supervise toileting as indicated, Transport methods appropriate to patient Fall Risk Scale Calc Temp : 0 Ana Villeda Rn - 01/29/2019 22:41 EDT Health Histories Smoking Status : Never (less than 100 in lifetime; none in last 30 days) Smokeless Tobacco Status : Never Ana Villeda Rn - 01/29/2019 22:41 EDT Social History (As Of: 01/29/2019 22:48:32 EDT) Tobacco: Never (less than 100 in lifetime) Smoking Status. Never Smokeless Tobacco Status. None Smokeless Tobacco Use History. (Last Updated: 01/29/2019 22:44:44 EDT by Ana Villeda, Rn) Alcohol: Alcohol Use History No. Use in Last 12 Months: No. (Last Updated: 01/29/2019 22:44:49 EDT by Ana Villeda, Rn) Substance Abuse: Drug Use Hx: No. Use in Last 12 Months: No. (Last Updated: 01/29/2019 22:44:53 EDT by Ana Villeda, Rn) Height and Weight, Clinical Dosing Height Source : Stated Height Entry Format : Daniels Height, Feet : 6 ft(Converted to: 183 cm, 72 Inch) Height, Inches : 0 Inch(Converted to: 0 ft 0 Inch, 0.00 cm) Clinical Height : 182.88 cm Weight Source : Bed scale Weight Entry Format : Daniels Clinical Dosing Weight : 135.91 kg Weight, Pounds : 299 lb Body Surface Area (BSA) : 2.53 m2 Body Mass Index : 40.6 kg/m2 (>HHI) [place] Body Weight : 77 kg Ana Villeda Rn - 01/29/2019 22:41 EDT Infectious Disease History Infectious Disease History : Chicken pox/Shingles Active Surveillance Screen Assessment : Patient transferred from another hospital/ED Active Surveillance Screen Positive : Yes Isolation Needed : Contact Fever/Chills Last 48 Hours : No Travel To Regions with Travel Advisories : No Travel Outside [place] Within Last 30 Days : No Contact With Traveler to Advisory Region : No Exposure to Contagious Illness : No Tuberculosis Symptoms : None Ana Villeda Rn - 01/29/2019 22:41 EDT Tetanus Immunization Status Previous Tetanus Immunizations : No qualifying data available. Tetanus Immunization : Unknown Ana Villeda Rn - 01/29/2019 22:41 EDT Influenza Vaccine Asmt, Adult Previous Vaccines from Immunization Schedule : No qualifying data available. Influenza Immunization, Current Season : Yes Ana Villeda Rn - 01/29/2019 22:41 EDT Pneumococcal Vaccine Previous Vaccines from Immunization Schedule : No qualifying data available. Pneumonia Immunization Received : No Pneumococcal Risk Assessment < Age 65 : None Ana Villeda Rn - 01/29/2019 22:41 EDT Order Details Transport Mode Order Detail : Wheelchair Isolation Precautions Order Detail : Standard Precautions Order Detail : N/A IV Order Detail : 1 Oxygen Order Detail : 0 Nurse Collect Order Detail : 0 Lift/Transfer : Independent Central Line Order Detail : No Room Service : Appropriate Arterial Line : No Ana Villeda Rn - 01/29/2019 22:41 EDT Nutrition History Feeding Ability : Independent Adaptive Feeding Equipment : None Adaptive Feeding Equipment : Regular Oral Medication Administration : By mouth Eating Poorly Due to Decreased Appetite : No Unplanned Weight Loss in Past 3-6 Months : No Malnutrition Screening Tool Total(mal) : 0 Malnutrition Screening Tool Risk Level : Patient not at risk Ana Villeda Rn - 01/29/2019 22:41 EDT Psychosocial History Does Someone Depend on You for Care? : No Chronic/Terminal Illness w/Freq Visits : No Do You Have a History of the Following? : Patient denies history Currently in Unsafe Situation : No Restraining Order Against Another Person : No Do You Have a Support System? : Yes Tried to Harm Yourself in the Past? : No Thoughts of Harming/Killing Yourself : No Ana Villeda Rn - 01/29/2019 22:41 EDT Sleep Apnea Risk Assmt BiPAP/CPAP Ordered for Home Use : Yes Hx of Obstructive Sleep Apnea Diagnosis : Yes BiPAP/CPAP Used at Home : Yes Age over 50 Years Old : Yes Gender Male : Yes Ana Villeda Rn - 01/29/2019 22:41 EDT Spiritual/Cultural Needs Significant Loss/Crisis in Past 3 Years : No Significant Distress/Coping/Need Support : No Any Spiritual/Cultural Needs or Requests : No Anabaptism Preference : Cheondoism Ana Villeda Rn - 01/29/2019 22:41 EDT Valuables and Belongings Valuables and Belongings : Clothing, Jewelry, Personal devices, Personal items, No comfort items, No assistive devices, No respiratory devices, No medications Clothing : Common streetwear Clothing Disposition : Bedside, With patient, Declines to send to security/safe Personal Device Disposition : Bedside, With patient, Declines to send to security/safe Jewelry : Earrings, Ring Jewelry Disposition : Bedside, With patient, Declines to send to security/safe Personal Devices : Glasses Personal Items : [place], Cell phone, Wallet, Other: $137 in zavala Personal Items Disposition : Bedside, With patient, Declines to send to security/safe Ana Villeda Rn - 01/29/2019 22:41 EDT Electronically signed by Kiara Van Conversion Real Estate Marketing Coordinator Cerner at 10/22/2022 11:02 PM CDT documented in this encounter Plan of Treatment Not on file documented as of this encounter Visit Diagnoses Not on filedocumented in this encounter
--- OUTSIDE RECORDS SUMMARY | 2024-12-22 14:38 | XMS_ITS | Encounter Summary ---
Author Organization Healthcare Address [address] [place] [address] Care Team Providers Care Entry Level Finance Name Role Phone Bridgette Szymanski DO Primary Care Provider [phone] Elaina Carvalho Primary Care Provider [phone] Addison Rizzo DO Primary Care Provider Pcp, No Primary Care Provider Unavailabl e Addison Rizzo DO Unavailable [phone] Brooklyn Redmond LPN Unavailable Unavailable Encounter Details Date Type Department Care Team (Late st Contact Info) Description 05/06/2023 Lab Requisition [facility] [address] [place] [address] Estefania Keller MD [address] [place] [address] Unspecified general medical examination Social History Tobacco Use Types Packs/Day Years Used Date Smoking Tobacco: Never Smokeless Tobacco: Never Alcohol Use Standard Drinks/Week Comments Not Currently 0 (1 standard drink = 0.6 oz pure alcohol) Alcoholic Drinks/day: Former consumption of alcohol Humiliation, Afraid, Rape, and Kick questionnair e Answer Date Recorded Within the last year, have y ou been afraid of your partner or ex-partner? No 05/08/2023 Within the last year, have y ou been humiliated or emotionally abused in other ways by your partner or ex-partner? No Within the last year, have y ou been kicked, hit, slapped, or otherwise physically hurt by your partner or ex-partner? No 05/08/2023 Within the last year, have y ou been raped or forced to have any kind of sexual activity by your partner or ex-partner? No 05/08/2023 Hunger Vital Sign Answer Date Recorded Within the past 12 months, y ou worried that your food would run out before you got the money to buy more. Never true 05/08/20 23 Within the past 12 months, t he food you bought just didn't last and you didn't have money to get more. Never true 05/08/2023 PRAPARE - Transportation Answer Date Re corded In the past 12 months, has l ack of transportation kept you from medical appointments or from getting medications? No 08/2022 In the past 12 months, has l ack of transportation kept you from meetings, work, or from getting things needed for daily living? No 05/08/2023 Housing Stability Vital Sign Answer Seth e Recorded In the last 12 months, was t here a time when you were not able to pay the mortgage or rent on time? No 05/08/2023 In the last 12 months, how many places have you lived? 1 05/08/2023 In the last 12 months, was t here a time when you did not have a steady place to sleep or slept in a senior care (including now)? No 05/08/2023 Utilities Answer Date Recorded In the past 12 months has th e uiu, gas, oil, or water [employer] threatened to shut off services in your home? No 05/08/2023 Sex and Gender Information Value Date Recorded Sex Assigned at Not on file Legal Sex Male 6:39 PM EDT Gender Identity Not on file Sexual Orientation Not on file documented as of this encounter Functional Status * Calculated C-SSRS Risk Score (Lifetime/Recent) Answer Date of Assessment Author No Risk Indicated 05/09/2023 8:00 PM EDT Reva Durant RN * Question Answer Date of Assessment Author 1. Wish to be (Past 1 Month) No 023 8:00 PM EDT Lissa Durant RN 2. Non-Specific Active Suici kayce Thoughts (Past 1 Month) No 05/09/2023 8:00 PM EDT Lissa Durant RN 6. Suicidal Behavior (Lifetime) No 3 8:00 PM EDT Lissa Durant RN documented as of this encounter Plan of Treatment Not on file documented as of this encounter Procedures Procedure Name Priority Date/Time Associated Diagnosis Comments SOURCE, [facility] HCV QUANT PCR Routine 05/06/2023 11:10 AM EDT Unspecified general medical examination HC 418 HIV-1 AG W/COMB 1&2 AB Routine 05/06/2023 11:10 AM EDT Unspecified general medical examination SOURCE, [facility] HEPATITIS B S AG Routine 05/06/2023 11:10 AM EDT Unspecified general medical examination documented in this encounter Results * Source, [facility] HCV Quant PCR (05/06/2023 11:10 AM EDT) Hepatitis C Virus (HCV) Quantitative Interpretation Not Detected Not Detected . 05/08/2023 5:06 AM EDT [facility] Hepatitis C Virus (HCV) Quantitative Viral Load Log Result <1.08 <1.08 log10 IU/mL 05/08/2023 5:06 AM EDT [facility] Hepatitis C Virus (HCV) Quantitative IU/mL Result <12 <12 IU/mL 05/08/2023 5:06 AM EDT [facility] Blood Venous blood specimen / Unknown 05/06/2023 11:10 AM EDT 05/06/2023 11:38 AM EDT Narrative [facility] - 05/08/2023 5:06 AM EDT The Judd M2000 HCV test is a Real Time in vitro nucleic acid amplification test for the quantitation of Hepatitis C Viral (HCV) RNA in human serum in HCV-infected individuals. It is intended for use as an aid in the management of HCV-infected individuals undergoing anti-viral therapy. The dynamic range for this test is log10 = 1.08 to 8.00 and/or 12 to 100,000,000 IU/mL. The limit of detection (LOD) for this assay is 12 IU/mL and the limit of quantitation (LOQ) is 12 IU/mL. This assay is FDA approved for clinical use. us Estefania Keller MD LAB BLOOD ORDERABLES Final Re sult Performing Organization Address [facility] de Phone Number [facility] [address] [place] [address] * Source, [facility] Hepatitis B S AG (05/06/2023 11:10 AM EDT) Pathologist [facility] Hepatitis B Surf Antigen Negative Negative 05/06/2023 12:44 PM EDT [facility] Blood Venous blood specimen / Unknown 05/06/2023 11:10 AM EDT 05/06/2023 11:38 AM EDT Estefania Keller MD LAB BLOOD ORDERABLES Final Re sult Performing Organization Address [facility] Phone Number [facility] [address] [place] [address] * Source, [facility] HIV AB/AG w/Reflex to HIV1/2 Antibody Differentiation (05/06/2023 11:10 AM EDT) [facility] HIV 1 & 2 Antibody/Anti gen Screen Non Reactive Non Reactive 05/06/2023 12:44 PM EDT [facility] Blood Venous blood specimen / Unknown 05/06/2023 11:10 AM EDT 05/06/2023 11:38 AM EDT Estefania Keller MD LAB BLOOD ORDERABLES Final Re sult Performing Organization Address [facility] de Phone Number [facility] [address] [place] [address] documented in this encounter Visit Diagnoses Diagnosis Unspecified general medical examination documented in this encounter Additional Health Concerns Infection Onset Date Last Indicated Resolved Time Respiratory Rule-Out 05/25/2023 05/25/20232 023 11:56 AM EST COVID-19 Rule-Out 08/06/2023 08/06/2023 08/06/2023 3:08 PM EST Influenza 08/06/2023 08/06/2023 09/03/2023 5:24 AM EST C. difficile Rule-Out 09/14/2023 09/17/20232023 9:07 AM EDT Gastrointestinal Rule-Out 09/14/2023 09/16/2023 5:32 AM EDT Gastrointestinal Rule-Out 09/17/2023 09/17/2023 9:47 AM EDT ESBL Comment:Wound culture collected 11/05/2023 resulted positive [...] resolve this infection. 11/05/2023 06/29/2024 C. difficile Rule-Out 11/08/2023 11/08/20232023 7:26 PM EDT Gastrointestinal Rule-Out 06/19/2024 06/19/2024 5:34 PM EST C. difficile Rule-Out Comment:No liquid Stools for 24 hours, does not fit criteria for C-diff sample test. 06/19/2024 06/19/2024 06/20/2024 5:[address] COVID-19 Rule-Out 06/24/2024 06/24/2024 06/24/2024 1:17 PM EST C. difficile Rule-Out 07/05/2024 07/05/20242023 8:42 AM EST C. difficile 07/05/2024 07/05/2024 Assessment Noted Time A fall risk assessment has been complete d for the patient 12/25/2022 1:09 PM EDT A Body Mass Index follow-up plan has been documented for the patient 12/25/2022 2:48 PM EDT documented as of this encounter Care Teams Entry Level Finance Relationship Specialty Start Date End Date Bridgette Szymanski DO [address] [place] [address] PCP - General 11/17/20 05/07/23 Elaina Carvalho PA [address] [place] [address] PCP - General 05/08/23 04/25/24 Addison Rizzo DO [address] [place] [address] PCP - General 04/26/24 06/23/24 Pcp, [place] [address] PCP - General Family Medicine 06/24/24 Addison Rizzo DO [address] [place] [id number] 06/24/24 Brooklyn Redmond LPN [employer] [place] [address] TCM Nurse 06/23/24 07/23/24 documented as of this encounter
--- OUTSIDE RECORDS SUMMARY | 2024-12-22 14:38 | XMS_ITS | Encounter Summary ---
Author Organization [employer] Address [address] [place] [address] Care Team Providers Care Java Architect Name Role Phone Unavailable Primary Care Provider Unavailabl e Encounter Details Date Type Department Care Team (Late st Contact Info) Description 01/31/2019 Transcribed Document [facility] Cardiology [address] [place] [address] Jovany Benitez MD [address] [facility] [address] [place] [address] Social History Tobacco Use Types Packs/Day Years Used Date Smoking Tobacco: Never Assessed Sex and Gender Information Value Date Recorded Sex Assigned at Not on file Legal Sex Male 5:19 PM CDT Gender Identity Not on file Sexual Orientation Not on file documented as of this encounter Miscellaneous Notes * Cerner Conversion Note - Jovany Benitez MD - 01/31/2019 1:29 AM EDT Patient: JOHNATHAN PARHAM Age: 63 years Sex: Male : 1955 Associated Diagnoses: None Author: JOVANY BENITEZ MD-CAR Subjective NAD Health Status Allergies: Allergic Reactions (Selected) Severity Not Documented Contrast Dye- No reactions were documented., Allergies (1) Active Reaction Contrast Dye None Documented Current medications: (Selected) Inpatient Medications Ordered Ativan: 0.5 mg, IV Push, Q4H, PRN: Agitation Core mg, Oral, BID DuoNeb 0.5 mg-2.5 mg/3 mL inhalation solution: 3 mL, Nebulized Inhalation, Q6H, PRN: Shortness of Breath Normal Saline 1,000 mL: 75 mL/Hr, IntraVENous, Stop: 07/28/19 1:35:00 EDT Pepcid: 20 mg, Oral, Daily Phenergan: 6.25 mg, IntraVENous, Q6H, PRN: Nausea Synthroid: 75 mcg, Oral, Daily Tylenol: 650 mg, Oral, Q4H, PRN: Other (See Comment) Zofran: 4 mg, IV Push, Q4H, PRN: Nausea amLODIPine: 5 mg, Oral, Daily aspirin: 81 mg, Oral, Daily cloNIDine: 0.1 mg, Oral, Q4H, PRN: Hypertension clopidogrel: 75 mg, Oral, Daily heparin: 5,000 Units, SubCutaneous, Q8H hydrALAZINE: 10 mg, IV Push, Q6H, PRN: Hypertension hydrALAZINE: 25 mg, Oral, BID insulin lispro 76 kg - 100 k kg - 100 kg scale, SubCutaneous, AC and at Bedtime isosorbide mononitrate: 60 mg, Oral, Daily morphine: 2 mg, IV [...] 1 Tab, Oral, Daily, 30 Tab, 0 Refill(s), Home Medications (10) Active aspirin 81 mg [...] 75 mcg = 1 Tab, Oral, Daily , Medications (20) Active Scheduled: (11) amLODIPine 5 mg tab 5 mg 1 Tab, Oral, Daily aspirin EC 81 mg tab 81 mg 1 Tab, Oral, Daily carvedilol 25 mg tab 25 mg 1 Tab, Oral, BID clopidogrel 75 mg tab 75 mg 1 Tab, Oral, Daily famotidine 20 mg tab 20 mg 1 Tab, Oral, Daily heparin 5,000 units/1 mL inj 5,000 Units 1 mL, SubCutaneous, Q8H hydrALAZINE 25 mg tab 25 mg 1 Tab, Oral, BID insulin lispro 1 unit/0.01 mL inj 76 kg - 100 kg scale, SubCutaneous, AC and at Bedtime isosorbide MONOnitrate ER 60 mg tab 60 mg 1 Tab, Oral, Daily levothyroxine 75 mcg tab 75 mcg 1 Tab, Oral, Daily rosuvastatin 40 mg tab 40 mg 1 Tab, Oral, Daily Continuous: (1) NaCl 0.9% 1,000 mL 1,000 mL, IntraVENous, 75 mL/Hr PRN: (8) acetaminophen 325 mg tab 650 mg 2 Tab, Oral, Q4H albuterol-ipratropium inh 3 mL 3 mL, Nebulized Inhalation, Q6H cloNIDine 0.1 mg tab 0.1 mg 1 Tab, Oral, Q4H hydrALAZINE 20 mg/1 mL inj 10 mg 0.5 mL, IV Push, Q6H LORazepam 2 mg/mL inj 0.5 mg 0.25 mL, IV Push, Q4H morphine 2 mg/1 ml inj 2 mg 1 mL, IV Push, Q2H ondansetron 4 mg/2 mL inj 4 mg 2 mL, IV Push, Q4H promethazine 25 mg/1 mL inj 6.25 mg 0.25 mL, IntraVENous, Q6H Problem list: All Problems CKD (chronic kidney disease) / SNOMED CT 9697685140 / Confirmed Diabetes mellitus / SNOMED CT 002518772 / Confirmed GERD (gastroesophageal reflux disease) / SNOMED CT 513100965 / Confirmed PILOT STATION (hard of hearing) / SNOMED CT 75407842 / Confirmed History of obstructive sleep apnea / IMO [id number] / Confirmed Hypertension / SNOMED CT 0519215537 / Confirmed, Active Problems (6) CKD (chronic kidney disease) Diabetes mellitus GERD (gastroesophageal reflux disease) History of obstructive sleep apnea PILOT STATION (hard of hearing) Hypertension Objective Intake and Output 24 hour intake: Total 100 ml 24 hour output: Total 250 ml VS/Measurements Vitals Signs (last 24 hrs) Last Charted Minimum Maximum Temp 97.8 (JAN 30 18:00) 97.8 (JAN 30 18:00) 97.8 (JAN 29:31) Apical HR 67 (JAN 30 21:18) 67 (JAN 30 21:18) 74 (JAN 29 23:03) Mon HR 64 (JAN 30 18:00) 60 (JAN 30 15:49) 77 (JAN 29:31) Resp Rate 16 (JAN 30 18:00) 16 (JAN 30 11:00) 18 (JAN 30 06:16) SBP 126 (JAN 30 18:00) 95 (JAN 29 23:31) H 158 (JAN 30 08:06) DBP 63 (JAN 30 18:00) L 59 (JAN 29 23:31) 84 (JAN 29 23:03) MAP 79 (JAN 30 18:00) 71 (JAN 29 23:31) 95 (JAN 30 06:16) SpO2 97 (JAN 30 18:00) 95 (JAN 30 06:16) 97 (JAN 30 18:00) General: Alert and oriented, No acute distress. Eye: Pupils are equal, round and reactive to light. HENT: Normocephalic. Neck: Supple, Non-tender. Respiratory: Respirations are non-labored, Breath sounds are equal, Symmetrical chest wall expansion. Cardiovascular: Normal rate, Regular rhythm, No edema. Gastrointestinal: Soft, Non-tender, Non-distended, Normal bowel sounds. Genitourinary: No costovertebral angle tenderness. Musculoskeletal: Normal range of motion. Integumentary: Warm, Dry, Intact. Neurologic: Alert, Oriented, No focal deficits. Psychiatric: Cooperative, Appropriate mood & affect. Results Review Telemetry sr Cardiac Markers (Current Encounter/Past 24 Hours) ProBNP 234 pg/mL HI 01/29/2019 23:10 Radiology Results (Last 48 hours) [id number] -- 01/29/2019 21:34 CR Chest 2 Vws (01/30/2019 15:14) Result: TWO VIEW CHEST:INDICATION: Dyspnea.FINDINGS: Two views of the chest without comparison. EKG leads overliethe chest. Sternotomy wires. Cardiac silhouette is borderline prominent.No pneumothorax. Scattered areas of mild scarring and/or atelectasisgreatest in the lung bases. No distinct consolidation otherwise.IMPRESSION: Minimal areas of scarring and/or atelectasis. Other chronicappearing findings. Follow-up if symptoms persist. Indications:Chest pain. Impression: Moderate left ventricular hypertrophy. Visually estimated ejection fraction 55% +/- 5%. Normal left ventricular systolic function. Normal left ventricular diastolic function. No hemodynamically significant valvular heart disease. No left ventricular masses or thrombi. Measurements Summary: LVEDd: 5.47 cm LVESd: 2.8 cm IVSEd: 1.5 cm AO Root:2.96 cm LVPWd: 1.36 cm Impression and Plan IMPRESSION: * Chest pain: Serial Trop normal. a. Recent abnormal stress testing at [facility] 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 PLAN; 01/31/2019 Add amlodipine. If persitent HTN will increase Defer [place] I for now secondary to renal dysfunction Other Rx appropriate nephrology recs pending [facility] tomorrow if renal function stable. 01/30/2019 Continue aspirin/Plavix/rosuvastatin/coreg. Change home isosorbide dinitrate to him before 60 mg daily. Echocardiogram IV hydration DC [place] I Plan for [facility] once renal function stable. Consider nephrology evaluation documented in this encounter Plan of Treatment Not on file documented as of this encounter Visit Diagnoses Not on filedocumented in this encounter
--- OUTSIDE RECORDS SUMMARY | 2024-12-22 14:38 | XMS_ITS | Encounter Summary ---
Author Organization [employer] Address [address] [place] [address] Care Team Providers Care Tube Lancer Name Role Phone Unavailable Primary Care Provider Unavailabl e Encounter Details Date Type Department Care Team (Late st Contact Info) Description 05/18/2019 Transcribed Document [facility] Family Medicine [facility] [place] [address] ProviderEmilia MD [address] [place] [address] Social History Tobacco Use Types Packs/Day Years Used Date Smoking Tobacco: Never Assessed Sex and Gender Information Value Date Recorded Sex Assigned at Not on file Legal Sex Male 5:19 PM CDT Gender Identity Not on file Sexual Orientation Not on file documented as of this encounter Miscellaneous Notes * Cerner Conversion Note - Historical ProviderMD - 05/18/2019 6:13 PM FINISHER HAND Electronically signed by Interface, [facility] Conversion Compliance Examiner Cerner at 10/22/2022 11:11 PM CDT documented in this encounter Plan of Treatment Not on file documented as of this encounter Visit Diagnoses Not on filedocumented in this encounter
--- OUTSIDE RECORDS SUMMARY | 2024-12-22 14:38 | XMS_ITS | Encounter Summary ---
Author Organization [employer] Address [address] [place] [address] Care Team Providers Care Mri Tech Name Role Phone Unavailable Primary Care Provider Unavailabl e Encounter Details Date Type Department Care Team (Late st Contact Info) Description 01/30/2019 Transcribed Document [facility] Family Medicine [address] [place] [address] ProviderEmilia MD [address] [place] [address] Social History Tobacco Use Types Packs/Day Years Used Date Smoking Tobacco: Never Assessed Sex and Gender Information Value Date Recorded Sex Assigned at Not on file Legal Sex Male 5:19 PM CDT Gender Identity Not on file Sexual Orientation Not on file documented as of this encounter Miscellaneous Notes * Cerner Conversion Note - Historical ProviderMD - 01/30/2019 2:00 AM CDT Human Resources Operations Manager Details Entered On: 01/30/2019 2:21 EDT Performed On: 01/30/2019 2:00 EDT by Ana Villeda Rn Order Details Transport Mode Order Detail : Wheelchair Isolation Precautions Order Detail : Standard Precautions Order Detail : N/A IV Order Detail : 1 Oxygen Order Detail : 0 Nurse Collect Order Detail : 0 Lift/Transfer : Independent Central Line Order Detail : No Room Service : Appropriate Arterial Line : No Ana Villeda, Rn - 01/30/2019 2:21 EDT documented in this encounter Plan of Treatment Not on file documented as of this encounter Visit Diagnoses Not on filedocumented in this encounter
--- OUTSIDE RECORDS SUMMARY | 2024-12-22 14:38 | XMS_ITS | Encounter Summary ---
Author Organization [employer] Address [address] [place] [address] Care Team Providers Care Engraver Optical Frames Name Role Phone Unavailable Primary Care Provider Unavailabl e Encounter Details Date Type Department Care Team (Late st Contact Info) Description 05/18/2019 Transcribed Document [facility] Medicine [facility] [place] [address] ProviderEmilia MD [address] [place] [address] Social History Tobacco Use Types Packs/Day Years Used Date Smoking Tobacco: Never Assessed Sex and Gender Information Value Date Recorded Sex Assigned at Not on file Legal Sex Male 5:19 PM CDT Gender Identity Not on file Sexual Orientation Not on file documented as of this encounter Miscellaneous Notes * Cerner Conversion Note - Historical ProviderMD - 05/18/2019 1:36 PM TELEPHONE OPERATOR RECEPTIONIST ED Assessment Entered On: 05/18/2019 14:43 EST Performed On: 05/18/2019 14:42 EST by ERICA MONROY RN ED Quick Look Assessment Level of Consciousness : Alert, Awake Affect/Behavior : Appropriate, Calm, Cooperative Orientation : Oriented x 4 Skin Temperature : Warm Skin Description : Dry ERICA MONROY RN - 05/18/2019 14:42 EST ED General-Functional Assess Information Obtained From : Patient Preferred Communication Mode : Verbal Communication Barrier : None Primary Language : Khmer Any Spiritual/Cultural Needs or Requests : No Currently in Unsafe Situation : No ERICA MONROY RN - 05/18/2019 14:42 EST Social Habits Smoking Status : Never (less than 100 in lifetime; none in last 30 days) Smokeless Tobacco Status : Never Desires Tobacco Cessation Calc : 0 ERICA MONROY RN - 05/18/2019 14:42 EST Social History (As Of: 05/18/2019 14:43:47 EST) Tobacco: Never (less than 100 in lifetime) Smoking Status. Never Smokeless Tobacco Status. None Smokeless Tobacco Use History. (Last Updated: 01/29/2019 22:44:44 EDT by Ana Villeda, RN) Alcohol: Alcohol Use History No. Use in Last 12 Months: No. (Last Updated: 01/29/2019 22:44:49 EDT by Ana Villeda, RN) Substance Abuse: Drug Use Hx: No. Use in Last 12 Months: No. (Last Updated: 01/29/2019 22:44:53 EDT by Ana Villeda, RN) Cardiovascular ASMT, ED Cardiovascular Assessment WDL : WDL with exceptions Cardiovascular Symptoms : Chest pain at rest, Chest pain with activity Heart Rhythm : Regular Nail Bed Color : [place] Chest Pain : Yes ERICA MONROY RN - 05/18/2019 14:42 EST Pulses Grid Brachial Pulse, Left : 2+ normal Brachial Pulse, Right : 2+ normal Carotid Pulse, Left : 2+ normal Carotid Pulse, Right : 2+ normal Dorsalis Pedis Pulse, Left : 2+ normal Dorsalis Pedis Pulse, Right : 2+ normal Femoral Pulse, Left : 2+ normal Femoral Pulse, Right : 2+ normal Popliteal Pulse, Left : 2+ normal Popliteal Pulse, Right : 2+ normal Posterior Tibial Pulse, Left : 2+ normal Posterior Tibial Pulse, Right : 2+ normal Radial Pulse, Left : 2+ normal Radial Pulse, Right : 2+ normal ERICA MONROY RN - 05/18/2019 14:42 EST Edema Ed Grid Edema, Periorbital Left : None Edema, Periorbital Right : None Edema, Facial : None Edema, Neck : None Edema, Upper Arm, Left : None Edema, Upper Arm, Right : None Edema, Lower Arm, Left : None Edema, Lower Arm, Right : None Edema, Hand, Left : None Edema, Hand, Right : None Edema, Sacral : None Edema, Scrotum, Left : None Edema, Scrotum, Right : None Edema, Labia, Left : None Edema, Labia, Right : None Edema, Upper Leg, Left : None Edema, Upper Leg, Right : None Edema, Knee, Left : None Edema, Knee, Right : None Edema, Lower Leg, Left : None Edema, Lower Leg, Right : None Edema, Ankle, Left : None Edema, Ankle, Right : None Edema, Foot, Left : None Edema, Foot, Right : None Edema, Anasarca : None ERICA MONROY RN - 05/18/2019 14:42 EST Capillary Refill, Left Hand : Less than/Equal to (</=) 2 seconds Capillary Refill, Right Hand : Less than/Equal to (</=) 2 seconds Detailed Cardiovascular Assessment : Open ERICA MONROY RN - 05/18/2019 14:42 EST Cardiovascular ASMT, Detailed Cardiac Rhythm : Normal sinus rhythm Monitoring Leads : II ERICA MONROY RN - 05/18/2019 14:42 EST Respiratory Breath Sounds Auscultated : Posterior, Anterior Respiratory Assessment WDL : WDL with exceptions Cough : None ERICA MONROY RN - 05/18/2019 14:42 EST Breath Sounds Assessment Grid All Lobes Breath Sounds : Clear DINESH : Clear LLL : Clear RUL : Clear RML : Clear RLL : Clear ERICA MONROY RN - 05/18/2019 14:42 EST Electronically signed by Rehan, [facility] Conversion Tool And Gauge Inspector Cerner at 10/22/2022 11:12 PM CDT documented in this encounter Plan of Treatment Not on file documented as of this encounter Visit Diagnoses Not on filedocumented in this encounter
--- OUTSIDE RECORDS SUMMARY | 2024-12-22 14:39 | XMS_ITS | Encounter Summary ---
Author Organization [employer] Address [address] [place] [address] Care Team Providers Care Tube Man Name Role Phone Unavailable Primary Care Provider Unavailabl e Encounter Details Date Type Department Care Team (Late st Contact Info) Description 02/02/2019 Transcribed Document [facility] [place] [address] [place] [address] ProviderEmilia MD [address] [place] [address] Social History Tobacco Use Types Packs/Day Years Used Date Smoking Tobacco: Never Assessed Sex and Gender Information Value Date Recorded Sex Assigned at Not on file Legal Sex Male 5:19 PM CDT Gender Identity Not on file Sexual Orientation Not on file documented as of this encounter Miscellaneous Notes * Cerner Conversion Note - Historical ProviderMD - 02/02/2019 2:00 AM CDT Licensed Staff Mft Details Entered On: 02/02/2019 6:46 EDT Performed On: 02/02/2019 2:00 EDT by Lian Paez RN Order Details Transport Mode Order Detail : Wheelchair Isolation Precautions Order Detail : Standard Precautions Order Detail : N/A IV Order Detail : 1 Oxygen Order Detail : 0 Nurse Collect Order Detail : 0 Lift/Transfer : Independent Central Line Order Detail : No Room Service : Appropriate Arterial Line : No Lian Paez RN - 02/02/2019 6:46 EDT documented in this encounter Plan of Treatment Not on file documented as of this encounter Visit Diagnoses Not on filedocumented in this encounter
--- OUTSIDE RECORDS SUMMARY | 2024-12-22 14:39 | XMS_ITS | Encounter Summary ---
Author Organization [employer] Address [address] [place] [address] Care Team Providers Care Jail Manager Name Role Phone Unavailable Primary Care Provider Unavailabl e Encounter Details Date Type Department Care Team (Late st Contact Info) Description 02/01/2019 Transcribed Document [facility] [place] [address] ProviderEmilia MD [address] [place] [address] Social History Tobacco Use Types Packs/Day Years Used Date Smoking Tobacco: Never Assessed Sex and Gender Information Value Date Recorded Sex Assigned at Not on file Legal Sex Male 5:19 PM CDT Gender Identity Not on file Sexual Orientation Not on file documented as of this encounter Miscellaneous Notes * Cerner Conversion Note - Historical ProviderMD - 02/01/2019 2:35 PM CDT UM Authorization Entered On: 02/01/2019 14:38 EDT Performed On: 02/01/2019 14:35 EDT by CAYLA CHAU, RN-Utilization Review Primary Insurance Authorization Authorization and Policy Numbers : Insurance 1 Health Plan: [employer] Policy Number: [id number] Authorization Number: Insurance Primary Name : [employer] Policy Number: [id number] Authorization Status-Primary : Awaiting callback Authorized Service Begin Date-Primary : 01/29/2019 EDT Authorization Comments-Primary : rec'd call from [facility] this am re: does not meet IP, did we want to change to OBS or have it routed to medical staff coordinator? Pt had heart cath planned for today, asked him to wait for outcome of LHC. Cath unremarkable per cards note, discussed case w/ DMc who requests leave as IP and have it routed to med director. Call back to [facility] to request route to MD. Historical Authorization Comments-Primary : Comment 1: Received voice mail on main line from Doris hanson [facility] stating that pt OBS, not meeting for INPT and we need to send more clinical if we have any. # [phone] fx# [phone] Made Cayla De Jesus aware as she is following the patient today. (MALIHA DOSHI, Wound Specialist 02/01/2019 13:11) Comment 2: Per [facility] notes Notify Payer of Admission - InProgress - faxed clinicals via cerner. (MIRYAM KOTHARI RN 01/30/2019 13:46) CAYLA CHAU, RN-Utilization Review - 02/01/2019 14:35 EDT documented in this encounter Plan of Treatment Not on file documented as of this encounter Visit Diagnoses Not on filedocumented in this encounter
--- OUTSIDE RECORDS SUMMARY | 2024-12-22 14:39 | XMS_ITS | Encounter Summary ---
Author Organization [employer] Address [address] [place] [address] Care Team Providers Care Pupil Personnel Worker Name Role Phone Unavailable Primary Care Provider Unavailabl e Encounter Details Date Type Department Care Team (Late st Contact Info) Description 02/01/2019 Transcribed Document [facility] [place] [address] [place] [address] ProviderEmilia MD [address] [place] [address] Social History Tobacco Use Types Packs/Day Years Used Date Smoking Tobacco: Never Assessed Sex and Gender Information Value Date Recorded Sex Assigned at Not on file Legal Sex Male 5:19 PM CDT Gender Identity Not on file Sexual Orientation Not on file documented as of this encounter Miscellaneous Notes * Cerner Conversion Note - Historical ProviderMD - 02/01/2019 8:57 PM CDT Vital Measurements Entered On: 02/01/2019 20:58 EDT Performed On: 02/01/2019 20:57 EDT by Pamella Mckinley Vital Measurements Vital Measurements Comment : nurse notified of 21:00 fsbg / result [id number] Pamella Mckinley - 02/01/2019 20:57 EDT documented in this encounter Plan of Treatment Not on file documented as of this encounter Visit Diagnoses Not on filedocumented in this encounter
--- OUTSIDE RECORDS SUMMARY | 2024-12-22 14:39 | XMS_ITS | Encounter Summary ---
Author Organization [employer] Address [address] [place] [address] Care Team Providers Care Thermal Molder Name Role Phone Unavailable Primary Care Provider Unavailabl e Encounter Details Date Type Department Care Team (Late st Contact Info) Description 02/02/2019 Transcribed Document [facility] [place] [address] [place] [address] ProviderEmilia MD [address] [place] [address] Social History Tobacco Use Types Packs/Day Years Used Date Smoking Tobacco: Never Assessed Sex and Gender Information Value Date Recorded Sex Assigned at Not on file Legal Sex Male 5:19 PM CDT Gender Identity Not on file Sexual Orientation Not on file documented as of this encounter Miscellaneous Notes * Cerner Conversion Note - Historical ProviderMD - 02/02/2019 12:40 PM CDT Stroke/Warfarin Instructions Entered On: 02/02/2019 12:40 EDT Performed On: 02/02/2019 12:40 EDT by Kami Rosenthal Rn-Clinical Coordinator Stroke/Warfarin Instructions Stroke/TIA Discharge Ins : N/A Warfarin Discharge Ins : N/A Kami Rosenthal Rn-Clinical Coordinator - 02/02/2019 12:40 EDT documented in this encounter Plan of Treatment Not on file documented as of this encounter Visit Diagnoses Not on filedocumented in this encounter
--- OUTSIDE RECORDS SUMMARY | 2024-12-22 14:39 | XMS_ITS | Encounter Summary ---
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 Name Role Phone Unavailable Primary Care Provider Unavailabl e Encounter Details Date Type Department Care Team (Late st Contact Info) Description 02/01/2019 Transcribed Document [facility] [place] [facility] [place] [address] ProviderEmilia MD [address] [place] [id number] Social History Tobacco Use Types Packs/Day Years Used Date Smoking Tobacco: Never Assessed Sex and Gender Information Value Date Recorded Sex Assigned at Not on file Legal Sex Male 5:19 PM CDT Gender Identity Not on file Sexual Orientation Not on file documented as of this encounter Miscellaneous Notes * Cerner Conversion Note - Historical ProviderMD - 02/01/2019 12:37 PM CDT Patient: JOHNATHAN COURTNEY Age: 63 Years Sex: Male : 1955 Subjective underwent angiogram this morning. no complication doing well post procedure. will monitor renal function for net 24-48 hr. Vital Signs T: 36.9 ??C TMIN: 36.4 ??C TMAX: 36.9 ??C HR: 69(Monitored) RR: 16 BP: 157/82 SpO2: 98% Oxygen Settings (Last) Oxygen Therapy Mode: Room air (02/01/19 10:34:00 EDT) Intake & Output Totals Last 24 Hours (7a-7a) Input Total: 720 mL Output Total: 0 mL Balance: 720 mL Physical Exam Constitutional: [No fevers, chills, sweats] Eye: [No recent visual problems, eye discharge, eye pain, redness] HEENT: [No ear pain, nasal congestion, sore throat, voice changes] Respiratory: [No shortness of breath, cough, pain on breathing, sputum production] Cardiovascular: [No Chest pain, palpitations, syncope, shortness of breath while laying flat] Gastrointestinal: [No nausea, vomiting, diarrhea, constipation] Genitourinary: [No hematuria, dysuria, incontinence, lesions on genitalia] Dominik/Lymph: [Negative for bruising tendency, swollen lymph glands, nosebleeds, history of anticoagulation] Endocrine: [Negative for excessive thirst, excessive hunger, excessive urination, heat or cold intolerance] Musculoskeletal: [No back pain, neck pain, joint pain, muscle pain, decreased range of motion] Integumentary: [No rash, pruritus, abrasions, lesions] Neurologic: [No weakness, numbness, frequent headaches, tremors, blackouts] Psychiatric: [No anxiety, depression, mood changes, hallucinations] Assessment/Plan CKD stage III - Risk factor DM, HTN, atherosclerosis. Cr~ 2.0-1.9mg/dl - No UA - At risk for KLEBER given CKD-III. off MONTSERRAT temporarily, diuretics on hold. Received volume expansion with crystalloid prior to the procedure. - IV fluids NS @75cc/hr for 6hr after the procedure - Given N acetyl-cysteine 650mg BID for 48 hr to prevent the risk of KLEBER - continue to monitor renal function after cath - High risk for KLEBER given hx of CKD Hyperkalemia: related to CKD Improved HTN: stable. off MONTSERRAT inh for now Manitian bp 130-140 CAD s/p CABG: +stress test Angiogram 02/01 Thank you for interesting consult will continue to follow the patient during the hospitalization VTE Prophylaxis - Medical Clopidogrel 75 mg, Oral, Tab, Daily, Routine, Start 01/30/19 9:00:00 EDT (KASSANDRA DAVIS) Heparin 5,000 Units, SubCutaneous, Inj, Q8H, Routine, Start 01/30/19 0:43:00 EDT (KASSANDRA DAVIS) Sequential Compression Device Start: 01/29/19 22:08:00 EDT, Bilateral, Continuous Order (KASSANDRA DAVIS) Sequential Compression Device Start: 01/29/19 21:42:00 EDT, Bilateral, Length: Knee High, While patient is in bed, Continuous Order (KASSANDRA DAVIS) Medications amLODIPine, 5 mg= 1 Tab, Oral, Daily aspirin, 81 mg= 1 Tab, Oral, Daily Ativan, 0.5 mg= 0.25 mL, IV Push, Q4H, PRN atorvastatin, 80 mg= 2 Tab, Oral, PREOP cloNIDine, 0.1 mg= 1 Tab, Oral, Q4H, PRN clopidogrel, 75 mg= 1 Tab, Oral, Daily Coreg, 25 mg= 1 Tab, Oral, BID DuoNeb 0.5 mg-2.5 mg/3 mL inhalation solution, 3 mL, Nebulized Inhalation , Q6H, PRN heparin, 5000 Units= 1 mL, SubCutaneous, Q8H hydrALAZINE, 10 mg= 0.5 mL, IV Push, Q6H, PRN hydrALAZINE, 25 mg= 1 Tab, Oral, BID insulin lispro 76 kg - 100 kg, 76 kg - 100 kg scale, SubCutaneous, AC and at Bedtime isosorbide mononitrate, 60 mg= 1 Tab, Oral, Daily Lantus, 15 Units= 0.15 mL, SubCutaneous, BID morphine, 2 mg= 1 mL, IV Push, Q2H, PRN Mucinex, 600 mg= 1 Tab, Oral, BID Normal Saline Flush, 10 mL, IV Push, Q12H Normal Saline Flush, 10 mL, IV Push, See Comment, PRN Normal Saline Flush, 10 mL, IV Push, See Comment, PRN Normal Saline Flush, 10 mL, IV Push, Q12H Pepcid, 20 mg= 1 Tab, Oral, Daily Phenergan, 6.25 mg= 0.25 mL, IntraVENous, Q6H, PRN rosuvastatin, 40 mg= 1 Tab, Oral, Daily Sodium Chloride 0.45% intravenous solution 1,000 mL, 1000 mL, IntraVENous Sodium Chloride 0.9% intravenous solution 500 mL, 500 mL, IntraVENous Synthroid, 75 mcg= 1 Tab, Oral, Daily Tylenol, 650 mg= 2 Tab, Oral, Q4H, PRN Zofran, 4 mg= 2 mL, IV Push, Q4H, PRN Lab Results Test Name Test Result Date/Time Sodium Level 137 mmol/L 02/01/2019 05:17 EDT Potassium Level 4.4 mmol/L 02/01/2019 05:17 EDT Chloride Level 105 mmol/L 02/01/2019 05:17 EDT Carbon Dioxide Level 27 mmol/L 02/01/2019 05:17 EDT Anion Gap 9 02/01/2019 05:17 EDT Glucose Level 241 mg/dL (High) 02/01/2019 05:17 EDT Blood Urea Nitrogen 28 mg/dL (High) 02/01/2019 05:17 EDT Creatinine Level 1.60 mg/dL (High) 02/01/2019 05:17 EDT eGFR 54 mL/min/1.73m2 (Low) 02/01/2019 05:17 EDT eGFR NonAfrican 44 mL/min/1.73m2 (Low) 02/01/2019 05:17 EDT Bun/Creatinine 17.5 02/01/2019 05:17 EDT Calcium Level 9.7 mg/dL 02/01/2019 05:17 EDT Protein Total 7.1 Gram/dL 02/01/2019 05:17 EDT Albumin Level 3.6 Gram/dL 02/01/2019 05:17 EDT Globulin 3.5 Gram/dL 02/01/2019 05:17 EDT A/G Ratio 1.0 (Low) 02/01/2019 05:17 EDT Bilirubin Total 1.9 mg/dL (High) 02/01/2019 05:17 EDT Alk Phos 82 Units/Liter 02/01/2019 05:17 EDT AST 23 Units/Liter 02/01/2019 05:17 EDT ALT 27 Units/Liter 02/01/2019 05:17 EDT Magnesium Level 2.1 mg/dL 02/01/2019 05:17 EDT Device Comment 1 Notified MD RBV 02/01/2019 11:12 EDT Device Comment 1 Notified Nurse RBV 02/01/2019 05:52 EDT Device Comment 1 Notified Nurse RBV 01/31/2019 20:37 EDT Device Comment 1 Notified Nurse RBV 01/31/2019 16:08 EDT Glucose POC2 242 mg/dL (High) 02/01/2019 11:12 EDT Glucose POC2 242 mg/dL (High) 02/01/2019 05:52 EDT Glucose POC2 237 mg/dL (High) 01/31/2019 20:37 EDT Glucose POC2 295 mg/dL (High) 01/31/2019 16:08 EDT Calcium Ionized 1.29 mmol/L 02/01/2019 05:17 EDT Creatinine Urine Random 76 mg/dL 01/31/2019 14:02 EDT Protein Ur Sterling 14 mg/dL 01/31/2019 14:02 EDT WBC 5.9 K/uL 02/01/2019 05:17 EDT RBC 4.54 Million/uL 02/01/2019 05:17 EDT Hgb 13.3 g/dL (Low) 02/01/2019 05:17 EDT Hct 41.6 % 02/01/2019 05:17 EDT MCV 91.6 fL 02/01/2019 05:17 EDT MCH 29.3 pg 02/01/2019 05:17 EDT MCHC 32.0 Gram/dL (Low) 02/01/2019 05:17 EDT Platelet Count 163 K/uL 02/01/2019 05:17 EDT MPV 11.4 fL 02/01/2019 05:17 EDT RDW 16.6 % (High) 02/01/2019 05:17 EDT Neut % 63.8 % 02/01/2019 05:17 EDT Neut # 3.77 K/uL 02/01/2019 05:17 EDT Lymph % 24.8 % 02/01/2019 05:17 EDT Lymph # 1.47 x10(3)/uL 02/01/2019 05:17 EDT Dale % 7.9 % 02/01/2019 05:17 EDT Dale # 0.47 K/uL 02/01/2019 05:17 EDT Eos % 2.5 % 02/01/2019 05:17 EDT Eos # 0.15 x10(3)/uL 02/01/2019 05:17 EDT Baso % 0.5 % 02/01/2019 05:17 EDT Baso # 0.03 x10(3)/uL 02/01/2019 05:17 EDT Slide Review No 02/01/2019 05:17 EDT IG# 0.03 x10(3)/uL 02/01/2019 05:17 EDT IG% 0.50 % 02/01/2019 05:17 EDT documented in this encounter Plan of Treatment Not on file documented as of this encounter Visit Diagnoses Not on filedocumented in this encounter
--- OUTSIDE RECORDS SUMMARY | 2024-12-22 14:39 | XMS_ITS | Encounter Summary ---
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 Name Role Phone Unavailable Primary Care Provider Unavailabl e Encounter Details Date Type Department Care Team (Late st Contact Info) Description 01/30/2019 Transcribed Document [facility] [place] Family Medicine [address] [place] [address] ProviderEmilia MD [address] [place] [address] Social History Tobacco Use Types Packs/Day Years Used Date Smoking Tobacco: Never Assessed Sex and Gender Information Value Date Recorded Sex Assigned at Not on file Legal Sex Male 5:19 PM CDT Gender Identity Not on file Sexual Orientation Not on file documented as of this encounter Miscellaneous Notes * Cerner Conversion Note - Historical ProviderMD - 01/30/2019 9:00 AM CDT Consult Phone Call Documentation Entered On: 01/30/2019 9:07 EDT Performed On: 01/30/2019 9:00 EDT by Dona Walker SWAN Phone Call for Consults Consult Phone Call/Page Attempt : First call Consult Reason : CHEST PAIN Physician Requesting Consult : KASSANDRA DAVIS MD Physician Requested for Consult : TAHIR JONES MD-CAR Provider Service Notified Name : Cardiology Date and Time Call Returned : 01/30/2019 8:28 EDT Non-Staff Physician Covering for Consult : SOFIA WANG APRN Ayubu, Sara, SWAN - 01/30/2019 9:05 EDT documented in this encounter Plan of Treatment Not on file documented as of this encounter Visit Diagnoses Not on filedocumented in this encounter
--- OUTSIDE RECORDS SUMMARY | 2024-12-22 14:39 | XMS_ITS | Encounter Summary ---
Author Organization [employer] Address [address] [place] [address] Care Team Providers Care Clinical Project Coordinator Name Role Phone Unavailable Primary Care Provider Unavailabl e Encounter Details Date Type Department Care Team (Late st Contact Info) Description 02/01/2019 Transcribed Document [facility] Cardiology [address] [place] [id number] Atilio White MD [address] [facility] [address] [place] [address] Social History Tobacco Use Types Packs/Day Years Used Date Smoking Tobacco: Never Assessed Sex and Gender Information Value Date Recorded Sex Assigned at Not on file Legal Sex Male 5:19 PM CDT Gender Identity Not on file Sexual Orientation Not on file documented as of this encounter Miscellaneous Notes * Cerner Conversion Note - Atilio White MD - 02/01/2019 2:56 PM EDT Patient: JOHNATHAN PARHAM Age: 63 years Sex: Male : 1955 Associated Diagnoses: None Author: NORBERTO FELICIANO, PAC-CAT Subjective NAD Health Status Current medications: (Selected) Inpatient Medications Ordered Ativan: 0.5 mg, IV Push, Q4H, PRN: Agitation Core mg, Oral, BID DuoNeb 0.5 mg-2.5 mg/3 mL inhalation solution: 3 mL, Nebulized Inhalation, Q6H, PRN: Shortness of Breath Lantus: 15 Units, SubCutaneous, BID Mucinex: 600 mg, Oral, BID Normal Saline Flush: 10 mL, IV Push, Q12H Normal Saline Flush: 10 mL, IV Push, Q12H Normal Saline Flush: 10 mL, IV Push, See Comment, PRN: IV Use Normal Saline Flush: 10 mL, IV Push, See Comment, PRN: IV Use Pepcid: 20 mg, Oral, Daily Phenergan: 6.25 mg, IntraVENous, Q6H, PRN: Nausea Sodium Chloride 0.45% intravenous solution 1,000 mL: 75 mL/Hr, IntraVENous Sodium Chloride 0.9% intravenous solution 500 mL: Titrate, IntraVENous Synthroid: 75 mcg, Oral, Daily Tylenol: 650 mg, Oral, Q4H, PRN: Other (See Comment) Zofran: 4 mg, IV Push, Q4H, PRN: Nausea amLODIPine: 5 mg, Oral, Daily aspirin: 81 mg, Oral, Daily atorvastatin: 80 mg, Oral, PREOP cloNIDine: 0.1 mg, Oral, Q4H, PRN: Hypertension [...] (Severe 7-10) rosuvastatin: 40 mg, Oral, Daily Problem list: Active Problems (6) CKD (chronic kidney disease) Diabetes mellitus GERD (gastroesophageal reflux disease) History of obstructive sleep apnea KNIK (hard of hearing) Hypertension Objective Intake and Output 24 hour intake: Total 100 ml 24 hour output: Total 250 ml VS/Measurements Vital Signs/Vital Measures 02/01/2019 11:30 EDT Systolic Blood Pressure 171 mmHg HI Diastolic Blood Pressure 86 mmHg Mean Arterial Pressure (MAP)-BMDI 102 Temperature, Fahrenheit 98 Deg F Respiratory Rate 18 Breaths/Min Oxygen Saturation 99 % , Vitals Signs (last 24 hrs) Last Charted Minimum Maximum Temp 98 (FEB 01 11:30) 97.6 (FEB 01 06:22) 98 (JAN 31 15:57) Apical HR 79 (FEB 01 07:45) 62 (JAN 31 21:31) 79 (FEB 01 07:45) Mon HR 69 (FEB 01 11:30) 62 (JAN 31 15:57) 72 (FEB 01 03:16) Resp Rate 18 (FEB 01 11:30) 16 (FEB 01 06:22) 20 (JAN 31 15:57) SBP H 171 (FEB 01 11:30) H 146 (FEB 01 11:00) H 183 (JAN 31 18:03) DBP 86 (FEB 01 11:30) 71 (FEB 01 03:16) H 96 (JAN 31 15:57) MAP 102 (FEB 01 11:30) 95 (FEB 01 11:00) 119 (JAN 31 15:57) SpO2 99 (FEB 01:30) 95 (JAN 31 18:03) 99 (FEB 01 10:34) General: Alert and oriented, No acute distress. [...] sr Cardiac Markers (Current Encounter/Past 24 Hours) No Cardiac Marker Results Found (Past 24 Hours) Radiology Results (Last 48 hours) [id number] -- 01/29/2019 21:34 CR Chest 2 Vws [...] normal. a. Recent abnormal stress testing at [facility] 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 PLAN; 02/01/19 [facility] today unremarkable. Recommend tight BP control. NOthing further to add. Follow up with Dr Daily 2-3 weeks. Will sign off. 01/31/2019 Add amlodipine. If persitent HTN will increase Defer MONTSERRAT I for now secondary to renal dysfunction Other Rx appropriate nephrology recs pending [facility] tomorrow if renal function stable. 01/30/2019 Continue aspirin/Plavix/rosuvastatin/coreg. Change home isosorbide dinitrate to him before 60 mg daily. Echocardiogram IV hydration DC MONTSERRAT I Plan for [facility] once renal function stable. Consider nephrology evaluation documented in this encounter Plan of Treatment Not on file documented as of this encounter Visit Diagnoses Not on filedocumented in this encounter
--- OUTSIDE RECORDS SUMMARY | 2024-12-22 14:39 | XMS_ITS | Encounter Summary ---
Author Organization [facility] Address [address] [place] [address] Care Team Providers Care Baker Bench Name Role Phone Unavailable Primary Care Provider Unavailabl e Encounter Details Date Type Department Care Team (Late st Contact Info) Description 02/02/2019 Transcribed Document [facility] [address] [place] [address] ProviderEmilia MD [address] [place] [address] Social History Tobacco Use Types Packs/Day Years Used Date Smoking Tobacco: Never Assessed Sex and Gender Information Value Date Recorded Sex Assigned at Not on file Legal Sex Male 5:19 PM CDT Gender Identity Not on file Sexual Orientation Not on file documented as of this encounter Miscellaneous Notes * Cerner Conversion Note - Emilia ProviderMD - 02/02/2019 12:42 PM CDT [facility] [place] [address] ROZ JOHNATHAN :1955 Visit Time:01/29/2019 Your Visit Summary Your Care Team Admitting Physician - FIONA PECK MD-INT Attending Physician - FIONA PECK MD-YON Primary Care Physician - JUDITH BOSTON MD-[facility] Referring Physician - FIONA PECK MD-INT Your Diagnosis Other specified abnormal findings of blood chemistry, Other specified abnormal findings of blood chemistry Weakness Discharge Vitals Temperature 36.4 ??C Heart Rate (Monitored) 97 Respiratory Rate 16 Blood Pressure 167/83 What to do next Instructions From Your Care Team [facility] Address: [place] [address] Please STOP taking Lisinopril Follow-Up Appointments Follow Up with [facility] When 02/04/2019 08:15 AM EDT Comments Appointment has been made with Chelsea MA. Please bring ID, insurance card and list of current medications. Where: [address], [address] [place], [place] [phone] Follow Up with psychiatric cardiac rehab When In 6 weeks Comments Office to call with appoint/instructions Follow Up with Follow up with specialist When Within 1 to 2 weeks Comments cardiology Follow Up with Follow up with primary care provider When Within 2 to 3 days Medications What How Much When Instructions Next Dose amLODIPine (amLODIPine 5 mg oral tablet) 1 Tablet(s) Oral Every Day Duration: 30 Day(s) Printed Prescription insulin isophane (NPH)-insulin regular (ReliOn/ NovLIN 70/ 30 FlexPen subcutaneous suspension) 30 units SubCutaneous Twice a Day Before Meals Duration: 30 Day(s) Printed Prescription hydrALAZINE (hydrALAZINE 50 mg oral tablet) 1 Tablet(s) Oral Three Times A Day Duration: 30 Day(s) Please Note: This is a new dose. Printed Prescription aspirin (aspirin 81 mg oral delayed release tablet) 1 Tablet(s) Oral Every Day carvedilol (Coreg 25 mg oral tablet) 1 Tablet(s) Oral Two Times A Day clopidogrel (clopidogrel 75 mg oral tablet) 1 Tablet(s) Oral Every Day glipiZIDE (glipiZIDE 10 mg oral tablet) 1 Tablet(s) Oral Every Day isosorbide mononitrate (isosorbide mononitrate 30 mg oral tablet, extended release) 3 Tablet(s) Oral Every Day levothyroxine (Synthroid 75 mcg (0.075 mg) oral tablet) 1 Tablet(s) Oral Every Day rosuvastatin (rosuvastatin 40 mg oral tablet) 1 Tablet(s) Oral Every Day Take your medications faithfully. Do NOT skip medication. Do NOT stop taking medications without the direction of a physician. Carry a list of your medications with you at all times, and take this medication list with you to your first follow up visit. Report any side effects. Avoid herbal remedies unless discussed with your physician. As part of your treatment plan, your physician may have prescribed a limited course of a controlled substance. This medication may be given to help people with moderate or severe pain or for other medical conditions, but there are risks involved with treatment. Common side effects may include nausea, constipation, drowsiness, sweating, itching, dry mouth, and rash. More serious side effects may include cognitive and motor impairment, like problems with thinking, concentrating, alertness, and movement (e.g. slowed reflexes), and driving and operating heavy machinery can be dangerous. It is important for you to talk to your physician if you have these side effects or questions. These controlled substances can produce physical dependence and be habit-forming if taken for an extended period of time, which means that the body has gotten used to them and may experience withdrawal symptoms if they are abruptly stopped. Withdrawal symptoms can include runny nose, sweating, goose bumps, diarrhea, abdominal cramping, rapid heartbeat, difficulty sleeping, and nervousness. Please dispose of unused and medications per your retail pharmacy guidance. Allergies Contrast Dye Immunizations This Visit No Immunizations Found Education Materials Diabetic Nephropathy Diabetic nephropathy is kidney disease that is caused by diabetes (diabetes mellitus). Kidneys are organs that filter and clean blood and get rid of body waste products and extra fluid. Diabetes can cause gradual kidney damage over many years. Diabetic nephropathy that continues to get worse (progress) can lead to kidney failure. What are the causes? This condition is caused by kidney damage from diabetes that is not well controlled with treatment. Having high blood sugar (glucose) for a long time can damage blood vessels in the kidneys and cause them to thicken and become scarred. Those changes prevent the kidneys from functioning normally. What increases the risk? This condition is more likely to develop in people with diabetes who: ??? Have had diabetes for many years. ??? Have high blood pressure. ??? Have high blood glucose levels over a long period of time. ??? Have a family history of kidney disease. ??? Have a history of tobacco use. ??? Have certain genes that are passed from parent to child (inherited). ??? Are of -[place], , , , or descent. What are the signs or symptoms? This condition may not cause symptoms at first. If you do have symptoms, they may include: ??? Swelling of your hands, feet, or ankles. ??? Weakness. ??? Poor appetite. ??? Nausea. ??? Confusion. ??? Fatigue. ??? Trouble sleeping. ??? Dry, itchy skin. If nephropathy leads to kidney failure, symptoms may include: ??? Vomiting. ??? Shortness of breath. ??? Jerky movements that you cannot control (seizure). ??? Coma. How is this diagnosed? It is important to diagnose this condition before symptoms develop. You may be screened for diabetic nephropathy at a routine health care visit. Screening tests may include: ??? Yearly (annual) urine tests. ??? Urine collection over a 24-hour period to measure kidney function. ??? Blood tests to measure blood glucose levels and kidney function. ??? Regular blood pressure monitoring. If your health care provider suspects diabetic nephropathy, he or she may: ??? Review your medical history and symptoms. ??? Do a physical exam. ??? Do an ultrasound of your kidneys. ??? Perform a procedure to take a sample of kidney tissue for testing (biopsy). How is this treated? The goal of treatment is to prevent or slow down any damage to your kidneys by managing your diabetes. To do this, it is important to control: ??? Your blood pressure. ? Your target blood pressure may vary depending on your medical conditions, your age, and other factors. ? To help control blood pressure, you may be prescribed medicines to lower your blood pressure (MONTSERRAT inhibitors) or to help your body get rid of excess fluid (diuretics). ??? Your A1c (hemoglobin A1c) level. Generally, the goal of treatment is to maintain an A1c level of less than 7%. ??? Your blood glucose level. ??? Your blood lipids. If you have high cholesterol, you may need to take lipid-lowering drugs, such as statins. Other treatments may include: ??? Medicines, including insulin injections. ??? Lifestyle changes, such as: ? Losing weight. ? Quitting smoking (smoking cessation). ??? Changes to your diet, which may include limiting your salt (sodium), protein, and fluid intake. If your disease progresses to end-stage kidney failure, treatment may include: ??? Dialysis. This is a procedure to filter your blood with a machine. ??? Kidney transplant. Follow these instructions at home: Lifestyle ??? Maintain a healthy weight. Work with your health care provider to lose weight, if needed. ??? Do not use any products that contain nicotine or tobacco, such as cigarettes and e-cigarettes. If you need help quitting, ask your health care provider. ??? Be physically active every day. Ask your health care provider what type of exercise is best for you. ??? Eat healthy foods, and eat healthy snacks between meals. Follow instructions from your health care provider about eating and drinking restrictions. ??? Limit your sodium, protein, or fluid intake as directed. ??? Work with your health care provider to manage your blood pressure. General instructions ??? Follow your diabetes management plan as directed. ? Check your blood glucose levels as directed by your health care provider. ? Keep your blood glucose in your target range as directed by your health care provider. ? Have your A1c level checked two or more times a year, or as often as told by your health care provider. ??? Measure your blood pressure regularly at home, as told by your health care provider. ??? Take fgxm-pvr-fadlrly and prescription medicines only as told by your health care provider. These include insulin and supplements. ??? Keep all follow-up visits and routine visits as told by your health care provider. This is important. Make sure to get screening tests as directed. Contact a health care provider if: ??? You have trouble keeping your blood glucose in your goal range. ??? Your blood glucose level is higher than 240 mg/dL (13.3 mmol/L) for 2 days in a row. ??? You have swelling in your hands, ankles, or feet. ??? You feel weak, tired, or dizzy. ??? You have muscle tightening that you cannot control (spasms). ??? You have nausea or vomiting. ??? You feel tired all the time. Get help right away if: ??? You are very sleepy. ??? You faint. ??? You have: ? A seizure. ? Severe, painful muscle spasms. ? Shortness of breath. ? Chest pain. Summary ??? Keep your blood glucose in your target range as directed by your health care provider. ??? Work with your health care provider to manage your blood pressure. ??? Keep all follow-up visits and routine visits as told by your health care provider. This is important. Make sure to get screening tests as directed. This information is not intended to replace advice given to you by your health care provider. Make sure you discuss any questions you have with your health care provider. Document Released: 07/12/2008 Document Revised: 02/10/2018 Document Reviewed: 05/21/2017 [employer] Patient Education ?? 2019 [employer]. Chronic Kidney Disease, Adult Chronic kidney disease (CKD) happens when the kidneys are damaged over a long period of time. The kidneys are two organs that help with: ??? Getting rid of waste and extra fluid from the blood. ??? Making hormones that maintain the amount of fluid in your tissues and blood vessels. ??? Making sure that the body has the right amount of fluids and chemicals. Most of the time, CKD does not go away, but it can usually be controlled. Steps must be taken to slow down the kidney damage or to stop it from getting worse. If this is not done, the kidneys may stop working. Follow these instructions at home: Medicines ??? Take sebj-pen-ksdpkte and prescription medicines only as told by your doctor. You may need to change the amount of medicines you take. ??? Do not take any new medicines unless your doctor says it is okay. Many medicines can make your kidney damage worse. ??? Do not take any vitamin and supplements unless your doctor says it is okay. Many vitamins and supplements can make your kidney damage worse. General instructions ??? Follow a diet as told by your doctor. You may need to stay away from: ? Alcohol. ? Salty foods. ? Foods that are high in: ? Potassium. ? Calcium. ? Protein. ??? Do not use any products that contain nicotine or tobacco, such as cigarettes and e-cigarettes. If you need help quitting, ask your doctor. ??? Keep track of your blood pressure at home. Tell your doctor about any changes. ??? If you have diabetes, keep track of your blood sugar as told by your doctor. ??? Try to stay at a healthy weight. If you need help, ask your doctor. ??? Exercise at least 30 minutes a day, 5 days a week. ??? Stay up-to-date with your shots (immunizations) as told by your doctor. ??? Keep all follow-up visits as told by your doctor. This is important. Contact a doctor if: ??? Your symptoms get worse. ??? You have new symptoms. Get help right away if: ??? You have symptoms of end-stage kidney disease. These may include: ? Headaches. ? Numbness in your hands or feet. ? Easy bruising. ? Having hiccups often. ? Chest pain. ? Shortness of breath. ? Stopping of menstrual periods in women. ??? You have a fever. ??? You have very little pee (urine). ??? You have pain or bleeding when you pee. Summary ??? Chronic kidney disease (CKD) happens when the kidneys are damaged over a long period of time. ??? Most of the time, this condition does not go away, but it can usually be controlled. Steps must be taken to slow down the kidney damage or to stop it from getting worse. ??? Treatment may include a combination of medicines and lifestyle changes. This information is not intended to replace advice given to you by your health care provider. Make sure you discuss any questions you have with your health care provider. Document Released: 09/17/2010 Document Revised: 07/28/2017 Document Reviewed: 07/28/2017 [employer] Interactive Patient Education ?? 2019 [employer]. Carbohydrate Counting for Diabetes Mellitus, Adult Carbohydrate counting is a method of keeping track of how many carbohydrates you eat. Eating carbohydrates naturally increases the amount of sugar (glucose) in the blood. Counting how many carbohydrates you eat helps keep your blood glucose within normal limits, which helps you manage your diabetes (diabetes mellitus). It is important to know how many carbohydrates you can safely have in each meal. This is different for every person. A diet and nutrition therapist (registered dietitian) can help you make a meal plan and calculate how many carbohydrates you should have at each meal and snack. Carbohydrates are found in the following foods: ??? Grains, such as breads and cereals. ??? Dried beans and soy products. ??? Starchy vegetables, such as potatoes, peas, and corn. ??? Fruit and fruit juices. ??? Milk and yogurt. ??? Sweets and snack foods, such as cake, cookies, candy, chips, and soft drinks. How do I count carbohydrates? There are two ways to count carbohydrates in food. You can use either of the methods or a combination of both. Reading Nutrition Facts on packaged food The Nutrition Facts list is included on the labels of almost all packaged foods and beverages in the [place] It includes: ??? The serving size. ??? Information about nutrients in each serving, including the grams (g) of carbohydrate per serving. To use the ???Nutrition Facts : ??? Decide how many servings you will have. ??? Multiply the number of servings by the number of carbohydrates per serving. ??? The resulting number is the total amount of carbohydrates that you will be having. Learning standard serving sizes of other foods When you eat carbohydrate foods that are not packaged or do not include Nutrition Facts on the label, you need to measure the servings in order to count the amount of carbohydrates: ??? Measure the foods that you will eat with a food scale or measuring cup, if needed. ??? Decide how many standard-size servings you will eat. ??? Multiply the number of servings by 15. Most carbohydrate-rich foods have about 15 g of carbohydrates per serving. ? For example, if you eat 8 oz (170 g) of strawberries, you will have eaten 2 servings and 30 g of carbohydrates (2 servings x 15 g = 30 g). ??? For foods that have more than one food mixed, such as soups and casseroles, you must count the carbohydrates in each food that is included. The following list contains standard serving sizes of common carbohydrate-rich foods. Each of these servings has about 15 g of carbohydrates: ? hamburger bun or ?? Danish muffin. ? oz (15 mL) syrup. ? oz (14 g) jelly. ??? 1 slice of bread. ??? 1 six-inch tortilla. ??? 3 oz (85 g) cooked rice or pasta. ??? 4 oz (113 g) cooked dried beans. ??? 4 oz (113 g) starchy vegetable, such as peas, corn, or potatoes. ??? 4 oz (113 g) hot cereal. ??? 4 oz (113 g) mashed potatoes or ?? of a large baked potato. ??? 4 oz (113 g) canned or frozen fruit. ??? 4 oz (120 mL) fruit juice. ??? 4???6 crackers. ??? 6 chicken nuggets. ??? 6 oz (170 g) unsweetened dry cereal. ??? 6 oz (170 g) plain fat-free yogurt or yogurt sweetened with artificial sweeteners. ??? 8 oz (240 mL) milk. ??? 8 oz (170 g) fresh fruit or one small piece of fruit. ??? 24 oz (680 g) popped popcorn. Example of carbohydrate counting Sample meal ??? 3 oz (85 g) chicken breast. ??? 6 oz (170 g) brown rice. ??? 4 oz (113 g) corn. ??? 8 oz (240 mL) milk. ??? 8 oz (170 g) strawberries with sugar-free whipped topping. Carbohydrate calculation 1. Identify the foods that contain carbohydrates: ??? Rice. ??? [place]. ??? Milk. ??? Strawberries. 2. Calculate how many servings you have of each food: ??? 2 servings rice. ??? 1 serving corn. ??? 1 serving milk. ??? 1 serving strawberries. 3. Multiply each number of servings by 15 g: ??? 2 servings rice x 15 g = 30 g. ??? 1 serving corn x 15 g = 15 g. ??? 1 serving milk x 15 g = 15 g. ??? 1 serving strawberries x 15 g = 15 g. 4. Add together all of the amounts to find the total grams of carbohydrates eaten: ??? 30 g + 15 g + 15 g + 15 g = 75 g of carbohydrates total. Summary ??? Carbohydrate counting is a method of keeping track of how many carbohydrates you eat. ??? Eating carbohydrates naturally increases the amount of sugar (glucose) in the blood. ??? Counting how many carbohydrates you eat helps keep your blood glucose within normal limits, which helps you manage your diabetes. ??? A diet and nutrition therapist (registered dietitian) can help you make a meal plan and calculate how many carbohydrates you should have at each meal and snack. This information is not intended to replace advice given to you by your health care provider. Make sure you discuss any questions you have with your health care provider. Document Released: 2006 Document Revised: 12/31/2017 Document Reviewed: 12/04/2016 [employer] Interactive Patient Education ?? 2019 [employer] Diabetes Mellitus and Skin Care Diabetes (diabetes mellitus) can lead to health problems over time, including skin problems. People with diabetes have a higher risk for many types of skin complications. This is because having poorly controlled blood sugar (glucose) levels can: ??? Damage nerves and blood vessels. This can result in decreased feeling in your legs and feet, which means you may not notice minor skin injuries that could lead to serious problems. ??? Reduce blood flow (circulation), which makes wounds heal more slowly and increases your risk of infection. ??? Cause areas of skin to become thick or discolored. What are some common skin conditions that affect people with diabetes? Diabetes often causes dry skin. It can also cause the skin on the feet to get thinner, break more easily, and heal more slowly. There are certain skin conditions that commonly affect people who have diabetes, such as: ??? Bacterial skin infections, such as styes, boils, infected hair follicles, and infections of the skin around the nails. ??? Fungal skin infections. These are most common in areas where skin rubs together, such as in the armpits or under the breasts. ??? Open sores, especially on the feet. ??? Tissue (gangrene). This can happen on your feet if a serious infection does not heal properly. Gangrene can cause the need for a foot or leg to be surgically removed (amputated). Diabetes can also cause the skin to change. You may develop: ??? Dark, velvety markings on the skin that usually appear on the face, neck, armpits, inner thighs, and groin (acanthosis nigricans). This typically affects people of -G[place]adian and [place] descent. ??? Red, raised, scar-like tissue that may itch, feel painful, or develop into a wound (necrobiosis lipoidica). ??? Blisters on feet, toes, hands, or fingers. ??? Thickened, wax-like areas of skin that usually occur on the hands, forehead, or toes (digital sclerosis). ??? Brown or red ring-shaped or kyku-xcbp-jknniw patches of skin on the ears or fingers (disseminated granuloma). ??? Pea-shaped yellow bumps that may be itchy and surrounded by a red ring (eruptive xanthomatosis). This usually affects the arms, feet, buttocks, and the top of the hands. ??? Round, discolored patches of lubin skin that do not hurt or itch (diabetic dermopathy). These may look like age spots. What do I need to know about itchy skin? It is common for people with diabetes to have itchy skin caused by dryness. Frequent high blood glucose levels can cause itchiness, and poor circulation and certain skin infections can make dry, itchy skin worse. If you have itchy skin that is red or covered in a rash, this could be a sign of an allergic reaction to a medicine. If you have a rash or if your skin is very itchy, contact your health care provider. You may need help to manage your diabetes better, or you may need treatment for an infection. How can I prevent skin breakdown? When you have diabetes and you get a badly infected ulcer or sore that does not heal, your skin can break down, especially if you have poor circulation or are on bed rest. To prevent skin breakdown: ??? Keep your skin clean and dry. Wash your skin often. Do not use hot water. ??? Do not use any products that contain nicotine or tobacco, such as cigarettes and e-cigarettes. Smoking affects the body???s ability to heal. If you need help quitting, ask your health care provider. ??? Check your skin every day for cuts, bruises, redness, blisters, or sores, especially on your feet. Tell your health care provider about any cuts, wounds, or sores you have, especially if they are healing slowly. ??? If you are on bed rest, try to change positions often. What else do I need to know about taking care of my skin? To relieve dry skin and itching: ? Limit baths and showers to 5???10 minutes. ? Bathe with lukewarm water instead of hot water. ? Use mild soap and gentle skin cleansers. Do not use soap that is perfumed or harsh or dries your skin. ? Put on lotion as soon as you finish bathing. ??? Make sure that your health care provider performs a visual foot exam at every medical visit. ??? Schedule a foot exam with your health care provider once every year. This exam includes an inspection of the structure and skin of your feet. ??? If you get a skin injury, such as a cut, blister, or sore, check the area every day for signs of infection. Check for: ? More redness, swelling, or pain. ? More fluid or blood. ? Warmth. ? Pus or a bad smell. Contact a health care provider if: ??? You develop a cut or sore, especially on your feet. ??? You develop signs of infection after a skin injury. ??? Your blood glucose level is higher than 240 mg/dL (13.3 mmol/L) for 2 days in a row. ??? You have itchy skin that develops redness or a rash. ??? You have discolored areas of skin. ??? You have areas where your skin is changing, such as thickening or appearing shiny. Summary ??? Diabetes (diabetes mellitus) can lead to health problems over time, including skin problems. ??? People with diabetes have a higher risk for many types of skin complications. ??? Check your skin every day for cuts, bruises, redness, blisters, or sores, especially on your feet. ??? Tell your health care provider about any cuts, wounds, or sores you have, especially if they are healing slowly. This information is not intended to replace advice given to you by your health care provider. Make sure you discuss any questions you have with your health care provider. Document Released: 12/03/2016 Document Revised: 01/01/2018 Document Reviewed: 12/03/2016 [employer] Patient Education ?? 2019 [employer] Diabetes Mellitus and Nutrition, Adult When you have diabetes (diabetes mellitus), it is very important to have healthy eating habits because your blood sugar (glucose) levels are greatly affected by what you eat and drink. Eating healthy foods in the appropriate amounts, at about the same times every day, can help you: ??? Control your blood glucose. ??? Lower your risk of heart disease. ??? Improve your blood pressure. ??? Reach or maintain a healthy weight. Every person with diabetes is different, and each person has different needs for a meal plan. Your health care provider may recommend that you work with a diet and nutrition therapist (dietitian) to make a meal plan that is best for you. Your meal plan may vary depending on factors such as: ??? The calories you need. ??? The medicines you take. ??? Your weight. ??? Your blood glucose, blood pressure, and cholesterol levels. ??? Your activity level. ??? Other health conditions you have, such as heart or kidney disease. How do carbohydrates affect me? Carbohydrates, also called carbs, affect your blood glucose level more than any other type of food. Eating carbs naturally raises the amount of glucose in your blood. Carb counting is a method for keeping track of how many carbs you eat. Counting carbs is important to keep your blood glucose at a healthy level, especially if you use insulin or take certain oral diabetes medicines. It is important to know how many carbs you can safely have in each meal. This is different for every person. Your dietitian can help you calculate how many carbs you should have at each meal and for each snack. Foods that contain carbs include: ??? Bread, cereal, rice, pasta, and crackers. ??? Potatoes and corn. ??? Peas, beans, and lentils. ??? Milk and yogurt. ??? Fruit and juice. ??? Desserts, such as cakes, cookies, ice cream, and candy. How does alcohol affect me? Alcohol can cause a sudden decrease in blood glucose (hypoglycemia), especially if you use insulin or take certain oral diabetes medicines. Hypoglycemia can be a life-threatening condition. Symptoms of hypoglycemia (sleepiness, dizziness, and confusion) are similar to symptoms of having too much alcohol. If your health care provider says that alcohol is safe for you, follow these guidelines: ??? Limit alcohol intake to no more than 1 drink per day for non women and 2 drinks per day for men. One drink equals 12 oz of beer, 5 oz of wine, or 1?? oz of hard liquor. ??? Do not drink on an empty stomach. ??? Keep yourself hydrated with water, diet soda, or unsweetened iced tea. ??? Keep in mind that regular soda, juice, and other mixers may contain a lot of sugar and must be counted as carbs. What are tips for following this plan? Reading food labels ??? Start by checking the serving size on the Nutrition Facts label of packaged foods and drinks. The amount of calories, carbs, fats, and other nutrients listed on the label is based on one serving of the item. Many items contain more than one serving per package. ??? Check the total grams (g) of carbs in one serving. You can calculate the number of servings of carbs in one serving by dividing the total carbs by 15. For example, if a food has 30 g of total carbs, it would be equal to 2 servings of carbs. ??? Check the number of grams (g) of saturated and trans fats in one serving. Choose foods that have low or no amount of these fats. ??? Check the number of milligrams (mg) of salt (sodium) in one serving. Most people should limit total sodium intake to less than 2,300 mg per day. ??? Always check the nutrition information of foods labeled as low-fat or nonfat . These foods may be higher in added sugar or refined carbs and should be avoided. ??? Talk to your dietitian to identify your daily goals for nutrients listed on the label. Shopping ??? Avoid buying canned, premade, or processed foods. These foods tend to be high in fat, sodium, and added sugar. ??? Shop around the outside edge of the grocery store. This includes fresh fruits and vegetables, bulk grains, fresh meats, and fresh dairy. Cooking ??? Use low-heat cooking methods, such as baking, instead of high-heat cooking methods like deep frying. ??? Cook using healthy oils, such as olive, canola, or sunflower oil. ??? Avoid cooking with butter, cream, or high-fat meats. Meal planning ??? Eat meals and snacks regularly, preferably at the same times every day. Avoid going long periods of time without eating. ??? Eat foods high in fiber, such as fresh fruits, vegetables, beans, and whole grains. Talk to your dietitian about how many servings of carbs you can eat at each meal. ??? Eat 4???6 ounces (oz) of lean protein each day, such as lean meat, chicken, fish, eggs, or tofu. One oz of lean protein is equal to: ? 1 oz of meat, chicken, or fish. ? 1 egg. ? ?? cup of tofu. ??? Eat some foods each day that contain healthy fats, such as avocado, nuts, seeds, and fish. Lifestyle ??? Check your blood glucose regularly. ??? Exercise regularly as told by your health care provider. This may include: ? 150 minutes of moderate-intensity or vigorous-intensity exercise each week. This could be brisk walking, biking, or water aerobics. ? Stretching and doing strength exercises, such as yoga or weightlifting, at least 2 times a week. ??? Take medicines as told by your health care provider. ??? Do not use any products that contain nicotine or tobacco, such as cigarettes and e-cigarettes. If you need help quitting, ask your health care provider. ??? Work with a counselor or patient portal representative to identify strategies to manage stress and any emotional and social challenges. Questions to ask a health care provider ??? Do I need to meet with a patient portal representative? Do I need to meet with a dietitian? What number can I call if I have questions? When are the best times to check my blood glucose? Where to find more information: ??? [place] [employer]: diabetes.org ??? Academy of Nutrition and Dietetics: www.eatright.org ??? National [place] of Diabetes and Digestive and Kidney Diseases (NIH): www.niddk.nih.gov Summary ??? A healthy meal plan will help you control your blood glucose and maintain a healthy lifestyle. ??? Working with a diet and nutrition therapist (dietitian) can help you make a meal plan that is best for you. ??? Keep in mind that carbohydrates (carbs) and alcohol have immediate effects on your blood glucose levels. It is important to count carbs and to use alcohol carefully. This information is not intended to replace advice given to you by your health care provider. Make sure you discuss any questions you have with your health care provider. Document Released: 03/20/2006 Document Revised: 01/21/2018 Document Reviewed: 07/28/2017 [employer] Patient Education ?? 2019 [employer]. Hypertension Hypertension is another name for high blood pressure. High blood pressure forces your heart to work harder to pump blood. This can cause problems over time. There are two numbers in a blood pressure reading. There is a top number (systolic) over a bottom number (diastolic). It is best to have a blood pressure below 120/80. Healthy choices can help lower your blood pressure. You may need medicine to help lower your blood pressure if: ??? Your blood pressure cannot be lowered with healthy choices. ??? Your blood pressure is higher than 130/80. Follow these instructions at home: Eating and drinking ??? If directed, follow the DASH eating plan. This diet includes: ? Filling half of your plate at each meal with fruits and vegetables. ? Filling one quarter of your plate at each meal with whole grains. Whole grains include whole wheat pasta, brown rice, and whole grain bread. ? Eating or drinking low-fat dairy products, such as skim milk or low-fat yogurt. ? Filling one quarter of your plate at each meal with low-fat (lean) proteins. Low-fat proteins include fish, skinless chicken, eggs, beans, and tofu. ? Avoiding fatty meat, cured and processed meat, or chicken with skin. ? Avoiding premade or processed food. ??? Eat less than 1,500 mg of salt (sodium) a day. ??? Limit alcohol use to no more than 1 drink a day for non women and 2 drinks a day for men. One drink equals 12 oz of beer, 5 oz of wine, or 1?? oz of hard liquor. Lifestyle ??? Work with your doctor to stay at a healthy weight or to lose weight. Ask your doctor what the best weight is for you. ??? Get at least 30 minutes of exercise that causes your heart to beat faster (aerobic exercise) most days of the week. This may include walking, swimming, or biking. ??? Get at least 30 minutes of exercise that strengthens your muscles (resistance exercise) at least 3 days a week. This may include lifting weights or pilates. ??? Do not use any products that contain nicotine or tobacco. This includes cigarettes and e-cigarettes. If you need help quitting, ask your doctor. ??? Check your blood pressure at home as told by your doctor. ??? Keep all follow-up visits as told by your doctor. This is important. Medicines ??? Take [id number] and prescription medicines only as told by your doctor. Follow directions carefully. ??? Do not skip doses of blood pressure medicine. The medicine does not work as well if you skip doses. Skipping doses also puts you at risk for problems. ??? Ask your doctor about side effects or reactions to medicines that you should watch for. Contact a doctor if: ??? You think you are having a reaction to the medicine you are taking. ??? You have headaches that keep coming back (recurring). ??? You feel dizzy. ??? You have swelling in your ankles. ??? You have trouble with your vision. Get help right away if: ??? You get a very bad headache. ??? You start to feel confused. ??? You feel weak or numb. ??? You feel faint. ??? You get very bad pain in your: ? Chest. ? Belly (abdomen). ??? You throw up (vomit) more than once. ??? You have trouble breathing. Summary ??? Hypertension is another name for high blood pressure. ??? Making healthy choices can help lower blood pressure. If your blood pressure cannot be controlled with healthy choices, you may need to take medicine. This information is not intended to replace advice given to you by your health care provider. Make sure you discuss any questions you have with your health care provider. Document Released: 12/09/2008 Document Revised: 05/21/2017 Document Reviewed: 05/21/2017 [employer] Patient Education ?? 2019 [employer] Coronary Artery Disease, Male Coronary artery disease (CAD) is a condition in which the arteries that lead to the heart (coronary arteries) become narrow or blocked. The narrowing or blockage can lead to decreased blood flow to the heart. Prolonged reduced blood flow can cause a heart attack (myocardial infarction or SC). This condition may also be called coronary heart disease. Because CAD is the leading cause of in men, it is important to understand what causes this condition and how it is treated. What are the causes? CAD is most often caused by atherosclerosis. This is the buildup of fat and cholesterol (plaque) on the inside of the arteries. Over time, the plaque may narrow or block the artery, reducing blood flow to the heart. Plaque can also become weak and break off within a coronary artery and cause a sudden blockage. Other less common causes of CAD include: ??? An embolism or blood clot in a coronary artery. ??? A tearing of the artery (spontaneous coronary artery dissection). ??? An aneurysm. ??? Inflammation (vasculitis) in the artery wall. What increases the risk? The following factors may make you more likely to develop this condition: ??? Age. Men over age 45 are at a greater risk of CAD. ??? Family history of CAD. ??? Gender. Men often develop CAD earlier in life than women. ??? High blood pressure (hypertension). ??? Diabetes. ??? High cholesterol levels. ??? Tobacco use. ??? Excessive alcohol use. ??? Lack of exercise. ??? A diet high in saturated and trans fats, such as fried food and processed meat. Other possible risk factors include: ??? High stress levels. ??? Depression. ??? Obesity. ??? Sleep apnea. What are the signs or symptoms? Many people do not have any symptoms during the early stages of CAD. As the condition progresses, symptoms may include: ??? Chest pain (angina). The pain can: ? Feel like a crushing or squeezing, or a tightness, pressure, fullness, or heaviness in the chest. ? Last more than a few minutes or can stop and recur. The pain tends to get worse with exercise or stress and to fade with rest. ??? Pain in the arms, neck, jaw, or back. ??? Unexplained heartburn or indigestion. ??? Shortness of breath. ??? Nausea or vomiting. ??? Sudden light-headedness. ??? Sudden cold sweats. ??? Fluttering or fast heartbeat (palpitations). How is this diagnosed? This condition is diagnosed based on: ??? Your family and medical history. ??? A physical exam. ??? Tests, including: ? A test to check the electrical signals in your heart (electrocardiogram). ? Exercise stress test. This looks for signs of blockage when the heart is stressed with exercise, such as running on a treadmill. ? Pharmacologic stress test. This test looks for signs of blockage when the heart is being stressed with a medicine. ? Blood tests. ? Coronary angiogram. This is a procedure to look at the coronary arteries to see if there is any blockage. During this test, a dye is injected into your arteries so they appear on an X-ray. ? A test that uses sound waves to take a picture of your heart (echocardiogram). ? Chest X-ray. How is this treated? This condition may be treated by: ??? Healthy lifestyle changes to reduce risk factors. ??? Medicines such as: ? Antiplatelet medicines and blood-thinning medicines, such as aspirin. These help to prevent blood clots. ? Nitroglycerin. ? Blood pressure medicines. ? Cholesterol-lowering medicine. ??? Coronary angioplasty and stenting. During this procedure, a thin, flexible tube is inserted through a blood vessel and into a blocked artery. A balloon or similar device on the end of the tube is inflated to open up the artery. In some cases, a small, mesh tube (stent) is inserted into the artery to keep it open. ??? Coronary artery bypass surgery. During this surgery, veins or arteries from other parts of the body are used to create a bypass around the blockage and allow blood to reach your heart. Follow these instructions at home: Medicines ??? Take dcmh-ptv-ppgyqxv and prescription medicines only as told by your health care provider. ??? Do not take the following medicines unless your health care provider approves: ? NSAIDs, such as ibuprofen, naproxen, or celecoxib. ? Vitamin supplements that contain vitamin A, vitamin E, or both. Lifestyle ??? Follow an exercise program approved by your health care provider. Aim for 150 minutes of moderate exercise or 75 minutes of vigorous exercise each week. ??? Maintain a healthy weight or lose weight as approved by your health care provider. ??? Rest when you are tired. ??? Learn to manage stress or try to limit your stress. Ask your health care provider for suggestions if you need help. ??? Get screened for depression and seek treatment, if needed. ??? Do not use any products that contain nicotine or tobacco, such as cigarettes and e-cigarettes. If you need help quitting, ask your health care provider. ??? Do not use illegal drugs. Eating and drinking ??? Follow a heart-healthy diet. A dietitian can help educate you about healthy food options and changes. In general, eat plenty of fruits and vegetables, lean meats, and whole grains. ??? Avoid foods high in: ? Sugar. ? Salt (sodium). ? Saturated fat, such as processed or fatty meat. ? Trans fat, such as fried foods. ??? Use healthy cooking methods such as roasting, grilling, broiling, baking, poaching, steaming, or stir-frying. ??? If you drink alcohol, and your health care provider approves, limit your alcohol intake to no more than 2 drinks per day. One drink equals 12 ounces of beer, 5 ounces of wine, or 1?? ounces of hard liquor. General instructions ??? Manage any other health conditions, such as hypertension and diabetes. These conditions affect your heart. ??? Your health care provider may ask you to monitor your blood pressure. Ideally, your blood pressure should be below 130/80. ??? Keep all follow-up visits as told by your health care provider. This is important. Get help right away if: ??? You have pain in your chest, neck, arm, jaw, stomach, or back that: ? Lasts more than a few minutes. ? Is recurring. ? Is not relieved by taking medicine under your tongue (sublingualnitroglycerin). ??? You have too much (profuse) sweating without cause. ??? You have unexplained: ? Heartburn or indigestion. ? Shortness of breath or difficulty breathing. ? Fluttering or fast heartbeat (palpitations). ? Nausea or vomiting. ? Fatigue. ? Feelings of nervousness or anxiety. ? Weakness. ? Diarrhea. ??? You have sudden light-headedness or dizziness. ??? You faint. ??? You feel like hurting yourself or think about taking your own life. These symptoms may represent a serious problem that is an emergency. Do not wait to see if the symptoms will go away. Get medical help right away. Call your local emergency services (911 in the [place] Do not drive yourself to the hospital. Summary ??? Coronary artery disease (CAD) is a process in which the arteries that lead to the heart (coronary arteries) become narrow or blocked. The narrowing or blockage can lead to a heart attack. ??? Many people do not have any symptoms during the early stages of CAD. This is called silent CAD. ??? CAD can be treated with lifestyle changes, medicines, surgery, or a combination of these treatments. This information is not intended to replace advice given to you by your health care provider. Make sure you discuss any questions you have with your health care provider. Document Released: 01/18/2015 Document Revised: 06/13/2017 Document Reviewed: 06/13/2017 [employer] Interactive Patient Education ?? 2019 [employer]. insulin isophane and insulin regular (IN [facility] EYE sophia [place]ane and IN [facility] REG ue lar) HumuLIN 70/30, HumuLIN 70/30 KwikPen, NovoLIN 70/30, ReliOn/NovoLIN 70/30 What is the most important information I should know about insulin isophane and insulin regular? You should not use this medicine if you are having an episode of low blood sugar. Never share an injection pen or syringe with another person, even if the needle has been changed. What is insulin isophane and insulin regular? Insulin is a hormone that works by lowering levels of glucose (sugar) in the blood. Insulin isophane is a intermediate-acting insulin. Insulin regular is an short-acting insulin. This combination insulin starts to work within 10 to 20 minutes after injection, peaks in 2 hours, and keeps working for up to 24 hours. Insulin isophane and insulin regular is a combination medicine used to improve blood sugar control in adults with diabetes mellitus. Insulin isophane and insulin regular may also be used for purposes not listed in this medication guide. What should I discuss with my healthcare provider before using insulin isophane and insulin regular? You should not use this medicine if you are allergic to insulin, or if you are having an episode of hypoglycemia (low blood sugar). This medicine is not approved for use by anyone younger than 18 years old. Tell your doctor if you have ever had: ? congestive heart failure; ?? liver or kidney disease; or ?? low levels of potassium in your blood (hypokalemia). Tell your doctor if you also take pioglitazone or rosiglitazone (sometimes contained in combinations with glimepiride or metformin). Taking certain oral diabetes medicines while you are using insulin may increase your risk of serious heart problems. Follow your doctor's instructions about using insulin if you are or breast-feeding a baby. Blood sugar control is very important during , and your dose needs may be different during each trimester of . Your dose needs may also be different while you are breast-feeding. How should I use insulin isophane and insulin regular? Follow all directions on your prescription label and read all medication guides or instruction sheets. Use the medicine exactly as directed. Insulin is injected under the skin. A healthcare provider can teach you how to properly use the medication by yourself. Do not give insulin isophane and insulin regular with an insulin pump. Read and carefully follow any Instructions for Use provided with your medicine. Do not use this insulin if you don't understand all instructions for proper use. Ask your doctor or pharmacist if you have questions. This insulin should look cloudy after mixing. Do not use the mixture if it looks clear or has particles in it. Call your pharmacist for new medicine. Your care provider will show you where to on your body to inject this medicine. Use a different place each time you give an injection. Do not inject into the same place two times in a row. After using insulin isophane and insulin regular, you should eat a meal within 30 to 45 minutes. If you use an injection pen, use only the injection pen that comes with this insulin. Attach a new needle before each use. Do not transfer the insulin from the pen into a syringe. Never share an injection pen or syringe with another person, even if the needle has been changed. Sharing these devices can allow infections or disease to pass from one person to another. Low blood sugar (hypoglycemia) can happen to everyone who has diabetes. Symptoms include headache, hunger, sweating, irritability, dizziness, nausea, and feeling shaky. To quickly treat low blood sugar, always keep a fast-acting source of sugar with you such as fruit juice, hard candy, crackers, raisins, or non-diet soda. Your doctor can prescribe a glucagon emergency injection kit to use in case you have severe hypoglycemia and cannot eat or drink. Be sure your family and close friends know how to give you this injection in an emergency. Also watch for signs of high blood sugar (hyperglycemia) such as increased thirst or urination, blurred vision, headache, and tiredness. Blood sugar levels can be affected by stress, illness, surgery, exercise, alcohol use, or skipping meals. Ask your doctor before changing your dose or medication schedule. Insulin is only part of a treatment program that may also include diet, exercise, weight control, blood sugar testing, and special medical care. Follow your doctor's instructions very closely. Keep this medicine in its original container protected from heat and light. Do not draw insulin from a vial into a syringe until you are ready to give an injection. Do not freeze insulin or store it near the cooling element in a refrigerator. Throw away any insulin that has been frozen. Storing unopened (not in use) insulin isophane and insulin regular: ? Refrigerate and use until expiration date; or ?? Store at room temperature and use within the number of days specified in the Instructions for Use provided with your medicine. Storing opened (in use) insulin isophane and insulin regular: ? Store the vial in a refrigerator or at room temperature. ?? Store the injection pen at room temperature (do not refrigerate). Do not store the injection pen with a needle attached. ?? In-use insulin is stable for only a certain number of days. Throw away any medicine not used within that time. Follow all storage directions provided with your medicine. Use a needle and syringe only once and then place them in a puncture-proof 'sharps' container. Follow state or local laws about how to dispose of this container. Keep it out of the reach of children and pets. In case of emergency, wear or carry medical identification to let others know you have diabetes. What happens if I miss a dose? Since this medicine is used with a meal, you may not be on a timed dosing schedule. Whenever you use this insulin, be sure to eat a meal within 45 minutes. Do not use extra medicine to make up a missed dose. Get your prescription refilled before you run out of medicine completely. What happens if I overdose? Seek emergency medical attention or call the Poison Help line at . Insulin overdose can cause life-threatening hypoglycemia. Symptoms include drowsiness, confusion, blurred vision, numbness or tingling in your mouth, trouble speaking, muscle weakness, clumsy or jerky movements, seizure (convulsions), or loss of consciousness. What should I avoid while using insulin isophane and insulin regular? Insulin can cause low blood sugar. Avoid driving or operating machinery until you know how this medicine will affect you. Avoid medication errors by always checking the medicine label before injecting your insulin. Avoid drinking alcohol. It can cause low blood sugar and may interfere with your diabetes treatment. What are the possible side effects of insulin isophane and insulin regular? Get emergency medical help if you have signs of insulin allergy: redness or swelling where an injection was given, itchy skin rash over the entire body, trouble breathing, chest tightness, feeling like you might pass out, or swelling in your tongue or throat. Call your doctor at once if you have: ? fluid retention--weight gain, swelling in your hands or feet, feeling short of breath; or ?? low potassium--leg cramps, constipation, irregular heartbeats, fluttering in your chest, increased thirst or urination, numbness or tingling, muscle weakness or limp feeling. Common side effects may include: ? low blood sugar; ?? weight gain, swelling in your hands or feet; ?? itching, mild skin rash; or ?? thickening or hollowing of the skin where you injected the medicine. This is not a complete list of side effects and others may occur. Call your doctor for medical advice about side effects. You may report side effects to FDA at 2-842-NHQ-9682. What other drugs will affect insulin isophane and insulin regular? This insulin may not work as well when you use other medicines at the same time. This includes prescription and nbto-wfi-icesjim medicines, vitamins, and herbal products. Some drugs can also cause you to have fewer symptoms of hypoglycemia, making it harder to tell when your blood sugar is low. Not all possible interactions are listed here. Tell your doctor about all medicines you start or stop using. Where can I get more information? Your pharmacist can provide more information about insulin isophane and insulin regular. Remember, keep this and all other medicines out of the reach of children, never share your medicines with others, and use this medication only for the indication prescribed. Every effort has been made to ensure that the information provided by [employer] ('[employer]') is accurate, up-to-date, and complete, but no guarantee is made to that effect. Drug information contained herein may be time sensitive. [employer] information has been compiled for use by healthcare practitioners and consumers in the [place] and therefore [employer] does not warrant that uses outside of the [place] are appropriate, unless specifically indicated otherwise. [employer]'s drug information does not endorse drugs, diagnose patients or recommend therapy. [facility] drug information is an informational resource designed to assist licensed healthcare practitioners in caring for their patients and/or to serve consumers viewing this service as a supplement to, and not a substitute for, the expertise, skill, knowledge and judgment of healthcare practitioners. The absence of a warning for a given drug or drug combination in no way should be construed to indicate that the drug or drug combination is safe, effective or appropriate for any given patient. [facility] does not assume any responsibility for any aspect of healthcare administered with the aid of information [facility] provides. The information contained herein is not intended to cover all possible uses, directions, precautions, warnings, drug interactions, allergic reactions, or adverse effects. If you have questions about the drugs you are taking, check with your doctor, nurse or pharmacist. Copyright 8199-4486 [employer] Version: 8.01. Revision Date: 03/11/2018.hydralazine (dmitry payton) Apresoline What is the most important information I should know about hydralazine? You should not use this medicine if you have coronary artery disease, or rheumatic heart disease affecting the mitral valve. What is hydralazine? Hydralazine is a vasodilator that works by relaxing the muscles in your blood vessels to help them dilate (widen). This lowers blood pressure and allows blood to flow more easily through your veins and arteries. Hydralazine is used to treat high blood pressure (hypertension). Hydralazine may also be used for purposes not listed in this medication guide. What should I discuss with my healthcare provider before taking hydralazine? You should not use hydralazine if you are allergic to it, or if you have: ? coronary artery disease; or ?? rheumatic heart disease affecting the mitral valve. To make sure hydralazine is safe for you, tell your doctor if you have ever had: ? kidney disease; ?? systemic lupus erythematosus; ?? angina (chest pain); or ?? a stroke. It is not known whether this medicine will harm an unborn baby. Tell your doctor if you are or plan to become . Hydralazine can pass into breast milk, but effects on the nursing baby are not known. Tell your doctor if you are breast-feeding. Hydralazine is not approved for use by anyone younger than 18 years old. How should I take hydralazine? Follow all directions on your prescription label. Do not take this medicine in larger or smaller amounts or for longer than recommended. Your blood pressure will need to be checked often. You may also need frequent blood tests. Keep using this medicine as directed, even if you feel well. High blood pressure often has no symptoms. You may need to use blood pressure medicine for the rest of your life. Store at room temperature away from moisture and heat. What happens if I miss a dose? Take the missed dose as soon as you remember. Skip the missed dose if it is almost time for your next scheduled dose. Do not take extra medicine to make up the missed dose. What happens if I overdose? Seek emergency medical attention or call the Poison Help line at . Overdose symptoms may include rapid heartbeats, warmth or tingling under your skin, chest pain, or fainting. What should I avoid while taking hydralazine? Avoid getting up too fast from a sitting or lying position, or you may feel dizzy. Get up slowly and steady yourself to prevent a fall. What are the possible side effects of hydralazine? Get emergency medical help if you have signs of an allergic reaction: hives; difficult breathing; swelling of your face, lips, tongue, or throat. Call your doctor at once if you have: ? chest pain or pressure, pain spreading to your jaw or shoulder; ?? fast or pounding heartbeats; ?? a light-headed feeling, like you might pass out; ?? numbness, tingling, or burning pain in your hands or feet; ?? painful or difficult urination; ?? little or no urination; or ?? lupus-like syndrome--joint pain or swelling with fever, swollen glands, muscle aches, chest pain, vomiting, unusual thoughts or behavior, and patchy skin color. Common side effects may include: ? chest pain, fast heart rate; ?? headache; or ?? nausea, vomiting, diarrhea, loss of appetite. This is not a complete list of side effects and others may occur. Call your doctor for medical advice about side effects. You may report side effects to FDA at 4-119-IFQ-5081. What other drugs will affect hydralazine? Tell your doctor about all your current medicines and any you start or stop using, especially: ? diazoxide (an injectable blood pressure medication); or ?? an MAO inhibitor--isocarboxazid, linezolid, methylene blue injection, phenelzine, rasagiline, selegiline, tranylcypromine, and others. This list is not complete. Other drugs may interact with hydralazine, including prescription and duni-kal-pqnoxev medicines, vitamins, and herbal products. Not all possible interactions are listed in this medication guide. Where can I get more information? Your pharmacist can provide more information about hydralazine. Remember, keep this and all other medicines out of the reach of children, never share your medicines with others, and use this medication only for the indication prescribed. documented in this encounter Plan of Treatment Not on file documented as of this encounter Visit Diagnoses Not on filedocumented in this encounter
--- OUTSIDE RECORDS SUMMARY | 2024-12-22 14:39 | XMS_ITS | Encounter Summary ---
Author Organization [employer] Address [address] [place] [id number] Care Team Providers Care Office Services Assistant Name Role Phone Unavailable Primary Care Provider Unavailabl e Encounter Details Date Type Department Care Team (Late st Contact Info) Description 02/02/2019 Transcribed Document [facility] [place] Family Medicine [address] [place] [address] ProviderEmilia MD [address] [place] [address] Social History Tobacco Use Types Packs/Day Years Used Date Smoking Tobacco: Never Assessed Sex and Gender Information Value Date Recorded Sex Assigned at Not on file Legal Sex Male 5:19 PM CDT Gender Identity Not on file Sexual Orientation Not on file documented as of this encounter Miscellaneous Notes * Cerner Conversion Note - Historical ProviderMD - 02/02/2019 12:40 PM CDT Nursing Discharge Summary Entered On: 02/02/2019 12:41 EDT Performed On: 02/02/2019 12:40 EDT by Kami Rosenthal Rn-Clinical Coordinator Discharge Documentation Discharge Date/Time : 02/02/2019 12:40 EDT Patient Disposition, General : Discharge Discharge To : Home with ambulatory/outpatient follow-up IV Discontinued : Yes Medications Given to Patient : No Personal Belongings With Patient : Yes Prescriptions Given to Patient : Yes Discharge Instructions Reviewed With, Opportunity For Questions Given : Patient Patient Education Completed : Yes Number of Prescriptions Given : 3 Teaching Method : Explanation, Printed materials Teaching Evaluation : Verbalizes understanding Kami Rosenthal Rn-Clinical Coordinator - 02/02/2019 12:40 EDT documented in this encounter Plan of Treatment Not on file documented as of this encounter Visit Diagnoses Not on filedocumented in this encounter
--- OUTSIDE RECORDS SUMMARY | 2024-12-22 14:39 | XMS_ITS | Encounter Summary ---
Author Organization [employer] Address [address] [place] [address] Care Team Providers Care Sat Instructor Name Role Phone Unavailable Primary Care Provider Unavailabl e Encounter Details Date Type Department Care Team (Late st Contact Info) Description 01/30/2019 Transcribed Document [facility] [place] Family Medicine [facility] [place] [address] ProviderEmilia MD [address] [place] [address] Social History Tobacco Use Types Packs/Day Years Used Date Smoking Tobacco: Never Assessed Sex and Gender Information Value Date Recorded Sex Assigned at Not on file Legal Sex Male 5:19 PM CDT Gender Identity Not on file Sexual Orientation Not on file documented as of this encounter Miscellaneous Notes * Cerner Conversion Note - Historical ProviderMD - 01/30/2019 12:39 AM CDT DATE OF ADMISSION: 01/29/2019 PRIMARY CARE PHYSICIAN: Dr. Nadya Szymanski CHIEF COMPLAINT: Chest pain. HISTORY OF PRESENT ILLNESS: This is a 63-year-old male with history of diabetes mellitus, hypertension, hyperlipidemia, obesity, patient presented at outside facility, because not feeling well. Patient has been having chest discomfort associated with palpitation, shortness of breath, cough, headache, dizziness, nausea. Patient has been evaluated there and transferred to [facility]. Patient came in, blood work done shows normal troponin. Patient is anxious, lying in bed. No family at bedside. SYSTEMIC REVIEW: GENERAL: No fever or chills. HEAD: Positive for headache and dizziness. EYES: No change of vision. EARS: No earache. NOSE: No epistaxis. THROAT: No sore throat. RESPIRATORY: Positive for shortness of breath and cough. CARDIAC: Positive for chest pain and palpitation. GI: Positive for nausea. URINARY: No hematuria. MUSCULOSKELETAL: Generalized weakness. NEUROLOGICAL: No focal numbness or weakness. SKIN: No new rashes. ENDOCRINE: No heat or cold intolerance. PAST MEDICAL HISTORY: 1. Morbid obesity. 2. Hypertension. 3. Chronic kidney disease. 4. Diabetes mellitus. 5. Difficulty hearing. 6. Hyperlipidemia. 7. History of arrhythmia. 8. GERD. PAST SURGICAL HISTORY: 1. History of coronary artery disease status post CABG. 2. Cholecystectomy. 3. Cataract surgery. 4. Knee replacement. 5. Hernia repair. 6. Carotid endarterectomy. SOCIAL HISTORY: Patient is a nonsmoker. No alcohol or drug abuse. FAMILY HISTORY: Positive for heart disease. ALLERGIES: CONTRAST DYE. HOME MEDICATIONS: 1. Aspirin 81 mg a day. 2. Coreg 25 mg twice daily. 3. Plavix 75 mg a day. 4. Glipizide 10 mg a day. 5. Hydralazine 25 mg twice a day. 6. Isosorbide dinitrate 30 mg 3 times a day. 7. Synthroid 75 mcg a day. 8. Lisinopril 20 mg a day. 9. Rosuvastatin 40 mg daily. PHYSICAL EXAMINATION: VITAL SIGNS: Blood pressure 155/84, temperature 97.8, heart rate 77, respiratory rate 20. HEAD: Atraumatic, normocephalic. EYES: Pupils are round and reactive. No conjunctival injection or discharge. EARS: No discharge. NOSE: No bleeding or discharge. MOUTH: Dry. NECK: Supple. Full range of motion. CHEST: Poor inspiratory effort. Diminished air entry. No crackles, wheezes, or rhonchi. HEART: S1 and S2 heard. Regular rate and rhythm. ABDOMEN: Soft, obese. Audible bowel sounds. No tenderness. No guarding. No rebound tenderness. EXTREMITIES: Trace of edema. No erythema or tenderness. NEUROLOGICAL: No apparent focal, motor, or sensory deficits. Patient is alert, awake, and oriented x3. Intact cranial nerves. PSYCHIATRIC: Mild anxiety. SKIN: No apparent rashes or induration. ENDOCRINE: No thyromegaly or tenderness. GENERAL: Patient lying in bed difficulty, in mild distress. LABORATORIES AND STUDIES: Magnesium 2.1, glucose 177, lipase 244, lactic acid 1.0, troponin 0.015. BNP 234. ASSESSMENT AND PLAN: 1. Chest pain. Patient admitted to the hospital with chest pain. Patient with history of coronary artery disease, history of coronary artery bypass graft, hypertension, diabetes mellitus. Patient will be monitored closely. We will repeat troponin in a.m. Resume home medication and we will consult Cardiology. 2. Diabetes mellitus. We will start sliding scale. 3. Hypertension, resume home medication plus hydralazine as needed. 4. History of chronic kidney disease. We will check kidney function. Avoid nephrotoxic medication. 5. Obesity, recommend diet and exercise. 6. Hypothyroidism, levothyroxine to be continued. 7. Hyperlipidemia on statin, to be continued. 8. Gastrointestinal prophylaxis, Pepcid. 9. Deep venous thrombosis prophylaxis, heparin. Plan discussed with the patient, with registered nurse, chart was reviewed. TIME SPENT: 55 minutes. Enrique Khan M.D. Dict: 01/30/2019 00:39:56 Trans: 01/30/2019 01:15:25 CC1: Enrique Khan M.D. documented in this encounter Plan of Treatment Not on file documented as of this encounter Visit Diagnoses Not on filedocumented in this encounter
--- OUTSIDE RECORDS SUMMARY | 2024-12-22 14:39 | XMS_ITS | Encounter Summary ---
Author Organization [employer] Address [address] [place] [address] Care Team Providers Care Maritime Officer Name Role Phone Unavailable Primary Care Provider Unavailabl e Encounter Details Date Type Department Care Team (Late st Contact Info) Description 01/31/2019 Transcribed Document [facility] [place] Family Medicine [facility] [place] [address] ProviderEmilia MD [address], [place] [id number] Social History Tobacco Use Types Packs/Day Years Used Date Smoking Tobacco: Never Assessed Sex and Gender Information Value Date Recorded Sex Assigned at Not on file Legal Sex Male 5:19 PM CDT Gender Identity Not on file Sexual Orientation Not on file documented as of this encounter Miscellaneous Notes * Cerner Conversion Note - Emilia ProviderMD - 01/31/2019 12:39 PM CDT Patient: JOHNATHAN COURTNEY Age: 63 Years Sex: Male : 1955 Chief Complaint CKD Reason for Consultation CKD/ monitoring for contrast related nephropathy History of Present Illness tory of Present Illness Mr Courtney is a pleasant 63-year-old gentleman with a known history of atherosclerotic cardiovascular disease???history of coronary artery bypass grafting, hypertension, dyslipidemia, morbid obesity, and diabetes mellitus type 2 presented to [facility] with complaints of progressive chest pain with associated palpitations shortness of air and cough via [facility]. He underwent stress testing at their facility which revealed a reversible defect and was transferred to our facility for evaluation. Nephrology was consulted for the management of CKD and input regarding preop evaluation and management to prevent KLEBER Upon interviewing patient did mention having long standing hx of CKD. however he mentioned he was told his kidney is working 50% . Denies taking any NSAIDs, or OTC medication. Review of Systems Constitutional: [No fevers, chills, sweats] Eye: [No [...] Psychiatric: [No anxiety, depression, mood changes, hallucinations] Vital Signs T: 36.3 ??C TMIN: 36.3 ??C TMAX: 36.6 ??C HR: 64(Monitored) RR: 18 BP: 141/72 SpO2: 95% Oxygen Settings (Last) Oxygen Therapy Mode: Room air (01/31/19 11:25:00 EDT) Physical Exam General: Appears well, alert Neck: Supple, - JVD Resp: Clear to auscultate b/l, no wheeze, no rhonchi CVS: S1, S2, RRR, no rubs or gallop rhythm, no murmur GI: Soft, non tender, BS+ Ext: - edema b/l Neuro: AAX3, non focal findings, no tremors Skin: - Rash Assessment/Plan CKD stage III - Risk factor DM, HTN, atherosclerosis. Cr~ 2.0-1.9mg/dl - No UA - At risk for KLEBER given CKD-III. Already off MONTSERRAT temporarily diuretics on hold. Received volume expansion with crystalloid yesterday. Would suggest starting NS @100cc/hr 6 hr prior to the procedure and 6 hr post procedure - Given N acetyl-cysteine 650mg BID for 48 hr to prevent the risk of KLEBER - continue to monitor renal function after cath - High risk for KLEBER given hx of CKD - Will check UPC Hyperkalemia: related to CKD Improved HTN: stable. off MONTSERRAT inh for now Manitian bp 130-140 CAD: +stress test Plan for cath on Friday Thank you for interesting consult will continue to follow the patient during the hospitalization. VTE Prophylaxis - Medical Clopidogrel 75 mg, Oral, Tab, Daily, Routine, Start 01/30/19 9:00:00 EDT (KASSANDRA DAVIS) Heparin 5,000 Units, SubCutaneous, Inj, Q8H, Routine, Start 01/30/19 0:43:00 EDT (KASSANDRA DAVIS) Sequential Compression Device Start: 01/29/19 22:08:00 EDT, Bilateral, Continuous Order (KASSANDRA DAVIS) Sequential Compression Device Start: 01/29/19 21:42:00 EDT, Bilateral, Length: Knee High, While patient is in bed, Continuous Order (KASSANDRA DAVIS) Provider Information Primary Care Physician - RHONDA BOSTON Attending Physician - FIONA PECK MD-INT Admitting Physician - FIONA PECK MD-INT Consulting Physician - TAHIR JONES MD-CAR (Cardiology)- chest pain Consulting Physician - JUSTO JUNE MD-CAR Consulting Physician - EDILBERTO MIRANDA MD-BOLA (nephrology)- ARF Consulting Physician - CHRISTIANO FRANCIS MD Referring Physician - FIONA PECK MD-INT Problem List/Past Medical History Ongoing Arrhythmia CKD (chronic kidney disease) Diabetes mellitus GERD (gastroesophageal reflux disease) History of obstructive sleep apnea [place] (hard of hearing) Hypertension Historical No qualifying data Procedure/Surgical History Carotid Endardectomy, CATARACT REMOVAL INSERTION OF LENS, CHOLECYSTECTOMY, CORONARY ARTERY BYPASS GRAFT, Hernia Repair, Right knee replacement. Medications Inpatient amLODIPine, 5 mg= 1 Tab, Oral, Daily aspirin, 81 mg= 1 Tab, Oral, Daily Ativan, 0.5 mg= 0.25 mL, IV Push, Q4H, PRN cloNIDine, 0.1 mg= 1 Tab, Oral, Q4H, [...] mononitrate, 60 mg= 1 Tab, Oral, Daily morphine, 2 mg= 1 mL, IV Push, Q2H, PRN Pepcid, 20 mg= 1 Tab, Oral, Daily Phenergan, 6.25 mg= 0.25 mL, IntraVENous, Q6H, PRN rosuvastatin, 40 mg= 1 Tab, Oral, Daily Synthroid, 75 mcg= 1 Tab, Oral, Daily Tylenol, 650 mg= 2 Tab, Oral, Q4H, PRN Zofran, 4 mg= 2 mL, IV Push, Q4H, PRN Home aspirin 81 mg oral delayed release tablet, 81 mg= 1 Tab, Oral, Daily clopidogrel 75 mg oral tablet, 75 mg= 1 Tab, Oral, Daily Coreg 25 mg oral tablet, 25 mg= 1 Tab, Oral, BID glipiZIDE 10 mg oral tablet, 10 mg= 1 Tab, Oral, Daily hydrALAZINE 25 mg oral tablet, 25 mg= 1 Tab, Oral, BID isosorbide dinitrate 30 mg oral tablet, 30 mg= 1 Tab, Oral, TID lisinopril 20 mg oral tablet, 20 mg= 1 Tab, Oral, Daily potassium gluconate 550 mg oral tablet, 1 Tab, Oral, Daily rosuvastatin 40 mg oral tablet, 40 mg= 1 Tab, Oral, Daily Synthroid 75 mcg (0.075 mg) oral tablet, 75 mcg= 1 Tab, Oral, Daily Allergies Contrast Dye Social History Alcohol Alcohol Use History No. Use in Last 12 Months: No. Substance Abuse Drug Use Hx: No. Use in Last 12 Months: No. Tobacco Never (less than 100 in lifetime) Smoking Status. Never Smokeless Tobacco Status. None Smokeless Tobacco Use History. Lab Results Test Name Test Result Date/Time Sodium Level 137 mmol/L 01/31/2019 04:16 EDT Potassium Level 4.4 mmol/L 01/31/2019 04:16 EDT Chloride Level 104 mmol/L 01/31/2019 04:16 EDT Carbon Dioxide Level 26 mmol/L 01/31/2019 04:16 EDT Anion Gap 11 01/31/2019 04:16 EDT Glucose Level 336 mg/dL (High) 01/31/2019 04:16 EDT Blood Urea Nitrogen 31 mg/dL (High) 01/31/2019 04:16 EDT Creatinine Level 1.90 mg/dL (High) 01/31/2019 04:16 EDT eGFR 44 mL/min/1.73m2 (Low) 01/31/2019 04:16 EDT eGFR NonAfrican 36 mL/min/1.73m2 (Low) 01/31/2019 04:16 EDT Bun/Creatinine 16.3 01/31/2019 04:16 EDT Calcium Level 9.2 mg/dL 01/31/2019 04:16 EDT Protein Total 6.6 Gram/dL 01/31/2019 04:16 EDT Albumin Level 3.4 Gram/dL 01/31/2019 04:16 EDT Globulin 3.2 Gram/dL 01/31/2019 04:16 EDT A/G Ratio 1.1 01/31/2019 04:16 EDT Bilirubin Total 2.2 mg/dL (High) 01/31/2019 04:16 EDT Alk Phos 78 Units/Liter 01/31/2019 04:16 EDT AST 20 Units/Liter 01/31/2019 04:16 EDT ALT 24 Units/Liter 01/31/2019 04:16 EDT Magnesium Level 2.2 mg/dL 01/31/2019 04:16 EDT Device Comment 1 Notified Nurse RBV 01/31/2019 11:52 EDT Device Comment 1 Notified Nurse RBV 01/31/2019 06:00 EDT Device Comment 1 Notified Nurse RBV 01/30/2019 20:58 EDT Device Comment 1 Notified Nurse RBV 01/30/2019 15:42 EDT Glucose POC2 255 mg/dL (High) 01/31/2019 11:52 EDT Glucose POC2 332 mg/dL (High) 01/31/2019 06:00 EDT Glucose POC2 233 mg/dL (High) 01/30/2019 20:58 EDT Glucose POC2 228 mg/dL (High) 01/30/2019 15:42 EDT Calcium Ionized 1.22 mmol/L 01/31/2019 04:16 EDT WBC 6.0 K/uL 01/31/2019 04:16 EDT RBC 4.34 Million/uL 01/31/2019 04:16 EDT Hgb 12.7 g/dL (Low) 01/31/2019 04:16 EDT Hct 40.4 % 01/31/2019 04:16 EDT MCV 93.1 fL 01/31/2019 04:16 EDT MCH 29.3 pg 01/31/2019 04:16 EDT MCHC 31.4 Gram/dL (Low) 01/31/2019 04:16 EDT Platelet Count 158 K/uL (Low) 01/31/2019 04:16 EDT MPV 11.1 fL 01/31/2019 04:16 EDT RDW 16.7 % (High) 01/31/2019 04:16 EDT Neut % 60.1 % 01/31/2019 04:16 EDT Neut # 3.63 K/uL 01/31/2019 04:16 EDT Lymph % 29.1 % 01/31/2019 04:16 EDT Lymph # 1.76 x10(3)/uL 01/31/2019 04:16 EDT Beaver % 7.4 % 01/31/2019 04:16 EDT Beaver # 0.45 K/uL 01/31/2019 04:16 EDT Eos % 2.6 % 01/31/2019 04:16 EDT Eos # 0.16 x10(3)/uL 01/31/2019 04:16 EDT Baso % 0.5 % 01/31/2019 04:16 EDT Baso # 0.03 x10(3)/uL 01/31/2019 04:16 EDT Slide Review No 01/31/2019 04:16 EDT IG# 0.02 x10(3)/uL 01/31/2019 04:16 EDT IG% 0.30 % 01/31/2019 04:16 EDT documented in this encounter Plan of Treatment Not on file documented as of this encounter Visit Diagnoses Not on filedocumented in this encounter
--- OUTSIDE RECORDS SUMMARY | 2024-12-22 14:39 | XMS_ITS | Encounter Summary ---
Author Organization [facility] Address [address] [place] [address] Care Team Providers Care Veterinarian Name Role Phone Unavailable Primary Care Provider Unavailabl e Encounter Details Date Type Department Care Team (Late st Contact Info) Description 01/30/2019 Transcribed Document [facility] [place] [address] [place] [address] ProviderEmilia MD [address] [place] [address] Social History Tobacco Use Types Packs/Day Years Used Date Smoking Tobacco: Never Assessed Sex and Gender Information Value Date Recorded Sex Assigned at Not on file Legal Sex Male 5:19 PM CDT Gender Identity Not on file Sexual Orientation Not on file documented as of this encounter Miscellaneous Notes * Cerner Conversion Note - Historical ProviderMD - 01/30/2019 1:58 PM CDT Consult Phone Call Documentation Entered On: 01/30/2019 14:23 EDT Performed On: 01/30/2019 13:58 EDT by Dona Walker SWAN Phone Call for Consults Consult Phone Call/Page Attempt : First call Consult Reason : arf Physician Requesting Consult : KASSANDRA DAVIS MD Physician Requested for Consult : EDILBERTO MIRANDA MD-[employer] [facility] Provider Service Notified Name : Nephrology Physician Covering for Consult : CHRISTIANO FRANCIS MD Date and Time Call Returned : 01/30/2019 14:22 EDT Physician Returning Call : CHRISTIANO FRANCIS MD Ayubu, Sara, SWAN - 01/30/2019 14:22 EDT Electronically signed by Rehan [facility] Conversion Sorting Supervisor Cerner at 10/22/2022 11:12 PM CDT documented in this encounter Plan of Treatment Not on file documented as of this encounter Visit Diagnoses Not on filedocumented in this encounter
--- OUTSIDE RECORDS SUMMARY | 2024-12-22 14:39 | XMS_ITS | Encounter Summary ---
Author Organization [employer] [facility] Address [address] [place] [address] Care Team Providers Care Caddie Supervisor Name Role Phone Unavailable Primary Care Provider Unavailabl e Encounter Details Date Type Department Care Team (Late st Contact Info) Description 02/02/2019 Transcribed Document [facility] [place] [address] [place] [address] ProviderEmilia MD [address] [place] [address] Social History Tobacco Use Types Packs/Day Years Used Date Smoking Tobacco: Never Assessed Sex and Gender Information Value Date Recorded Sex Assigned at Not on file Legal Sex Male 5:19 PM CDT Gender Identity Not on file Sexual Orientation Not on file documented as of this encounter Miscellaneous Notes * Cerner Conversion Note - Historical ProviderMD - 02/02/2019 5:00 AM CDT Chart Check - Review Order Profile Entered On: 02/02/2019 6:46 EDT Performed On: 02/02/2019 5:00 EDT by Lian Paez RN Chart Check Powerplans Initiated/Discontinued as Appropriate : Yes All Active Orders Reviewed : Yes Lian Paez RN - 02/02/2019 6:46 EDT documented in this encounter Plan of Treatment Not on file documented as of this encounter Visit Diagnoses Not on filedocumented in this encounter
--- OUTSIDE RECORDS SUMMARY | 2024-12-22 14:39 | XMS_ITS | Encounter Summary ---
Author Organization [email or web address] [facility] Address [address] [place] [address] Care Team Providers Care Music Autographer Name Role Phone Unavailable Primary Care Provider Unavailabl e Encounter Details Date Type Department Care Team (Late st Contact Info) Description 02/01/2019 Transcribed Document [facility] [place] Family Medicine [address] [place] [address] ProviderEmilia MD [address] [place] [address] Social History Tobacco Use Types Packs/Day Years Used Date Smoking Tobacco: Never Assessed Sex and Gender Information Value Date Recorded Sex Assigned at Not on file Legal Sex Male 5:19 PM CDT Gender Identity Not on file Sexual Orientation Not on file documented as of this encounter Miscellaneous Notes * Cerner Conversion Note - Historical ProviderMD - 02/01/2019 7:31 PM CDT Spiritual Care Short Form Entered On: 02/01/2019 19:31 EDT Performed On: 02/01/2019 19:31 EDT by DANYEL NICHOLSON Chaplain General Information, Spiritual Care Spiritual Care Referred by : Risk Management Consultant initiated Reason for Visit : Initial Ministry Provided to : Patient, Family/Significant other Intervention/Comment/Summary Points : 3 day visit with Johnathan and his . Baptist Preference : [facility] DANYEL NICHOLSON Chaplain - 02/01/2019 19:31 EDT documented in this encounter Plan of Treatment Not on file documented as of this encounter Visit Diagnoses Not on filedocumented in this encounter
--- OUTSIDE RECORDS SUMMARY | 2024-12-22 14:39 | XMS_ITS | Encounter Summary ---
Author Organization [employer] [facility] Address [address] [place] [address] Care Team Providers Care Cranberry Bog Supervisor Name Role Phone Unavailable Primary Care Provider Unavailabl e Encounter Details Date Type Department Care Team (Late st Contact Info) Description 02/01/2019 Transcribed Document [facility] [place] [address] [place] [address] ProviderEmilia MD [address] [place] [address] Social History Tobacco Use Types Packs/Day Years Used Date Smoking Tobacco: Never Assessed Sex and Gender Information Value Date Recorded Sex Assigned at Not on file Legal Sex Male 5:19 PM CDT Gender Identity Not on file Sexual Orientation Not on file documented as of this encounter Miscellaneous Notes * Cerner Conversion Note - Historical ProviderMD - 02/01/2019 5:00 AM CDT Chart Check - Review Order Profile Entered On: 02/01/2019 4:34 EDT Performed On: 02/01/2019 5:00 EDT by Lian Paez RN Chart Check Powerplans Initiated/Discontinued as Appropriate : Yes All Active Orders Reviewed : Yes Lian Paez RN - 02/01/2019 4:34 EDT documented in this encounter Plan of Treatment Not on file documented as of this encounter Visit Diagnoses Not on filedocumented in this encounter
--- OUTSIDE RECORDS SUMMARY | 2024-12-22 14:39 | XMS_ITS | Encounter Summary ---
Author Organization [employer] [facility] Address [address] [place] [address] Care Team Providers Care Filbert Grower Name Role Phone Unavailable Primary Care Provider Unavailabl e Encounter Details Date Type Department Care Team (Late st Contact Info) Description 05/18/2019 Transcribed Document [facility] [place] Family Medicine [address] [place] [address] ProviderEmilia MD [address] [place] [address] Social History Tobacco Use Types Packs/Day Years Used Date Smoking Tobacco: Never Assessed Sex and Gender Information Value Date Recorded Sex Assigned at Not on file Legal Sex Male 5:19 PM CDT Gender Identity Not on file Sexual Orientation Not on file documented as of this encounter Miscellaneous Notes * Cerner Conversion Note - Historical ProviderMD - 05/18/2019 2:22 PM SLATE SPLITTER Pain Assessment Entered On: 05/18/2019 15:25 EST Performed On: 05/18/2019 15:25 EST by ERICA MONROY RN Intervention Information: morphine Performed by ERICA MONROY RN on 05/18/2019 14:38:00 EST morphine,4mg IV Push,Right Antecubit Dobson Pain Assessment Pain Assessment : Follow-up assessment Pain Scale Used : 0-10 Scale ERICA MONROY RN - 05/18/2019 15:25 EST Pain Scale Intensity : 5 ERICA MONROY RN - 05/18/2019 15:25 EST Image 4 - Images currently included in the form version of this document have not been included in the text rendition version of the form. documented in this encounter Plan of Treatment Not on file documented as of this encounter Visit Diagnoses Not on filedocumented in this encounter
--- OUTSIDE RECORDS SUMMARY | 2024-12-22 14:39 | XMS_ITS | Encounter Summary ---
Author Organization [employer] [facility] Address [address] [place] [address] Care Team Providers Care Buncher Machine Name Role Phone Unavailable Primary Care Provider Unavailabl e Encounter Details Date Type Department Care Team (Late st Contact Info) Description 05/18/2019 Transcribed Document [facility] [place] [facility] [place] [address] ProviderEmilia MD [address] [place] [address] Social History Tobacco Use Types Packs/Day Years Used Date Smoking Tobacco: Never Assessed Sex and Gender Information Value Date Recorded Sex Assigned at Not on file Legal Sex Male 5:19 PM CDT Gender Identity Not on file Sexual Orientation Not on file documented as of this encounter Miscellaneous Notes * Cerner Conversion Note - Historical ProviderMD - 05/18/2019 6:17 PM FINISH OPENER ED Discharge Entered On: 05/18/2019 18:17 EST Performed On: 05/18/2019 18:17 EST by ERICA MONROY RN Discharge Process Patient Disposition : Discharge Personal Belongings With Patient : Yes Patient Education Completed : Yes Teaching Evaluation : Verbalizes understanding IV Discontinued : Yes Nursing Documentation Completed : Yes ERICA MONROY RN - 05/18/2019 18:17 EST ED Discharge Discharge To : Home with ambulatory/outpatient follow-up Mode Of Departure : Ambulatory Accompanied By : Unaccompanied Discharge Instructions Reviewed With, Opportunity For Questions Given : Patient Prescriptions Given to Patient : No ERICA MONROY RN - 05/18/2019 18:17 EST documented in this encounter Plan of Treatment Not on file documented as of this encounter Visit Diagnoses Not on filedocumented in this encounter
--- OUTSIDE RECORDS SUMMARY | 2024-12-22 14:39 | XMS_ITS | Encounter Summary ---
Author Organization [employer] [facility] Address [address] [place] [address] Care Team Providers Care Agricultural Service Worker Name Role Phone Unavailable Primary Care Provider Unavailabl e Encounter Details Date Type Department Care Team (Late st Contact Info) Description 02/01/2019 Transcribed Document [facility] [place] [facility] [place] [address] ProviderEmilia MD [address], [place] [address] Social History Tobacco Use Types Packs/Day Years Used Date Smoking Tobacco: Never Assessed Sex and Gender Information Value Date Recorded Sex Assigned at Not on file Legal Sex Male 5:19 PM CDT Gender Identity Not on file Sexual Orientation Not on file documented as of this encounter Miscellaneous Notes * Cerner Conversion Note - Emilia ProviderMD - 02/01/2019 1:11 PM CDT UM Authorization Entered On: 02/01/2019 13:12 EDT Performed On: 02/01/2019 13:11 EDT by MALIHA DOSHI, Grain Cleaner Primary Insurance Authorization Authorization and Policy Numbers : Insurance 1 Health Plan: [employer] Policy Number: [id number] Authorization Number: Insurance Primary Name : [employer] Policy Number: [id number] Authorization Status-Primary : Awaiting callback Authorized Service Begin Date-Primary : 01/29/2019 EDT Authorization Comments-Primary : Received voice mail on main line from Doris hanson [facility] stating that pt OBS, not meeting for INPT and we need to send more clinical if we have any. # [phone] fx# [phone] Made Cayla De Jesus aware as she is following the patient today. Historical Authorization Comments-Primary : Comment 1: Per [facility] notes Notify Payer of Admission - InProgress - faxed clinicals via cerner. (MIRYAM KOTHARI RN 01/30/2019 13:46) MALIHA DOSHI, Grain Cleaner - 02/01/2019 13:11 EDT documented in this encounter Plan of Treatment Not on file documented as of this encounter Visit Diagnoses Not on filedocumented in this encounter
--- OUTSIDE RECORDS SUMMARY | 2024-12-22 14:39 | XMS_ITS | Encounter Summary ---
Author Organization [facility] Address [address] [place] [address] Care Team Providers Care Semiconductor Engineer Name Role Phone Unavailable Primary Care Provider Unavailabl e Encounter Details Date Type Department Care Team (Late st Contact Info) Description 01/31/2019 Transcribed Document [facility] [place] [address] [place] [address] ProviderEmilia MD [address] [place] [address] Social History Tobacco Use Types Packs/Day Years Used Date Smoking Tobacco: Never Assessed Sex and Gender Information Value Date Recorded Sex Assigned at Not on file Legal Sex Male 5:19 PM CDT Gender Identity Not on file Sexual Orientation Not on file documented as of this encounter Miscellaneous Notes * Cerner Conversion Note - Historical ProviderMD - 01/31/2019 2:00 AM CDT Energy Crop Farmer Details Entered On: 01/31/2019 2:33 EDT Performed On: 01/31/2019 2:00 EDT by Ana Villeda Rn Order Details Transport Mode Order Detail : Wheelchair Isolation Precautions Order Detail : Standard Precautions Order Detail : N/A IV Order Detail : 1 Oxygen Order Detail : 0 Nurse Collect Order Detail : 0 Lift/Transfer : Independent Central Line Order Detail : No Room Service : Appropriate Arterial Line : No Ana Villeda, Rn - 01/31/2019 2:33 EDT documented in this encounter Plan of Treatment Not on file documented as of this encounter Visit Diagnoses Not on filedocumented in this encounter
--- OUTSIDE RECORDS SUMMARY | 2024-12-22 14:39 | XMS_ITS | Encounter Summary ---
Author Organization [employer] [facility] Address [address] [place] [address] Care Team Providers Care Crystal Calibrator Name Role Phone Unavailable Primary Care Provider Unavailabl e Encounter Details Date Type Department Care Team (Late st Contact Info) Description 02/01/2019 Transcribed Document [facility] [place] [address] [place] [address] ProviderEmilia MD [address] [place] [address] Social History Tobacco Use Types Packs/Day Years Used Date Smoking Tobacco: Never Assessed Sex and Gender Information Value Date Recorded Sex Assigned at Not on file Legal Sex Male 5:19 PM CDT Gender Identity Not on file Sexual Orientation Not on file documented as of this encounter Miscellaneous Notes * Cerner Conversion Note - Historical ProviderMD - 02/01/2019 2:00 AM CDT Truss Puller Helper Details Entered On: 02/01/2019 4:35 EDT Performed On: 02/01/2019 2:00 EDT by Lian Paez RN Order Details Transport Mode Order Detail : Wheelchair Isolation Precautions Order Detail : Standard Precautions Order Detail : N/A IV Order Detail : 1 Oxygen Order Detail : 0 Nurse Collect Order Detail : 0 Lift/Transfer : Independent Central Line Order Detail : No Room Service : Appropriate Arterial Line : No Lian Paez RN - 02/01/2019 4:34 EDT documented in this encounter Plan of Treatment Not on file documented as of this encounter Visit Diagnoses Not on filedocumented in this encounter
--- OUTSIDE RECORDS SUMMARY | 2024-12-22 14:39 | XMS_ITS | Encounter Summary ---
Author Organization [facility] [employer] [facility] Address [address] [place] [address] Care Team Providers Care Family Welfare Social Work Professor Name Role Phone Unavailable Primary Care Provider Unavailabl e Encounter Details Date Type Department Care Team (Late st Contact Info) Description 02/03/2019 Transcribed Document [facility] [place] [facility] [place] [address] ProviderEmilia MD [address] [place] [address] Social History Tobacco Use Types Packs/Day Years Used Date Smoking Tobacco: Never Assessed Sex and Gender Information Value Date Recorded Sex Assigned at Not on file Legal Sex Male 5:19 PM CDT Gender Identity Not on file Sexual Orientation Not on file documented as of this encounter Miscellaneous Notes * Cerner Conversion Note - Emilia ProviderMD - 02/03/2019 9:44 AM CDT UM Authorization Entered On: 02/03/2019 9:45 EDT Performed On: 02/03/2019 9:44 EDT by MIRYAM KOTHARI RN Primary Insurance Authorization Authorization and Policy Numbers : Insurance 1 Health Plan: [employer] Policy Number: [id number] Authorization Number: Insurance Primary Name : [employer] Policy Number: [id number] Authorization Status-Primary : Notification only Authorization Number-Primary : [id number] Authorized Service Begin Date-Primary : 01/29/2019 EDT Authorization Comments-Primary : Per call from Esperanza approved IP admission. Historical Authorization Comments-Primary : Comment 1: [facility] re: does not meet IP, did we want to change to OBS or have it routed to medical office technician? Pt had heart cath planned for today, asked him to wait for outcome of C. Cath unremarkable per cards note, discussed case w/ DMc who requests leave as IP and have it routed to med director. Call back to [facility] to request route to MD. (MANOLO CHAU, RN-Utilization Review 02/01/2019 14:35) Comment 2: Received voice mail on main line from Doris at [facility] stating that pt OBS, not meeting for INPT and we need to send more clinical if we have any. ph# [phone] fx# [phone] Made Manolo De Jesus aware as she is following the patient today. (MALIHA DOSHI, Student Accounts Coordinator 02/01/2019 13:11) Comment 3: Per [facility] notes Notify Payer of Admission - InProgress - faxed clinicals via cerner. (MIRYAM KOTHARI RN 01/30/2019 13:46) MIRYAM KOTHARI RN - 02/03/2019 9:44 EDT documented in this encounter Plan of Treatment Not on file documented as of this encounter Visit Diagnoses Not on filedocumented in this encounter
--- OUTSIDE RECORDS SUMMARY | 2024-12-22 14:39 | XMS_ITS | Encounter Summary ---
Author Organization [employer] [facility] Address [address] [place] [address] Care Team Providers Care Cloth Classer Name Role Phone Unavailable Primary Care Provider Unavailabl e Encounter Details Date Type Department Care Team (Late st Contact Info) Description 02/01/2019 Transcribed Document [facility] [place] [facility] [place] [address] ProviderEmilia MD [address] [place] [address] Social History Tobacco Use Types Packs/Day Years Used Date Smoking Tobacco: Never Assessed Sex and Gender Information Value Date Recorded Sex Assigned at Not on file Legal Sex Male 5:19 PM CDT Gender Identity Not on file Sexual Orientation Not on file documented as of this encounter Miscellaneous Notes * Cerner Conversion Note - Historical ProviderMD - 02/01/2019 12:04 PM CDT Initial Discharge Planning Entered On: 02/01/2019 12:07 EDT Performed On: 02/01/2019 12:04 EDT by MATT OKEEFE RN-Care Management Initial Assessment I Previously Documented Living Environment : No qualifying data available. Living Situation : Other: w/girlfriend Patient Lives With : Significant other(s) Emergency Contact #1 : Samara Carey Emergency Contact #1 Emergency Contact #1 Relationship : Girlfriend Emergency Contact #2 : N/a Emergency Contact #2 Phone Number : N/a Emergency Contact #2 Relationship : N/a Enter Doctors Name : Bridgette Szymanski Does Patient have PCP Listed? : Yes Legal Guardian : No Is Guardianship Needed : No MATT OKEEFE RN-Care Management - 02/01/2019 12:04 EDT Initial Assessment II Sensory and Motor Deficits : None Current Home Treatments and Equipment : None MATT OKEEFE RN-Care Management - 02/01/2019 12:04 EDT Discharge Needs I Anticipated Discharge Date : 02/02/2019 EDT Anticipated Discharge To, CM : Home independently Current Home Treatment/Equipment : Current Home Treatment/Equipment No qualifying data available. Post Acute/Home Treatments : None MATT OKEEFE RN-Care Management - 02/01/2019 12:04 EDT Discharge Needs II Professional Skilled Services : Professional Skilled Services No qualifying data available. Needs Assistance with Transportation : No Discharge Options Discussed with Patient : Discharge transportation, DME, Home Health, Short term rehabilitation, Other: cardiac rehab MATT OKEEFE RN-Care Management - 02/01/2019 12:04 EDT Narrative Note Narrative Note : Interviewed pt, and states indep w/adl's and transportation along with no difficutly getting meds, etc. Reports Shower chair at home as being only DME. Also states had HH back in Aug but not current at this time. Order for cardiac and will send referral now pt agreeable to go. Denies SNF in past. Did have heart cath today. Anticipate dc tomorrow indep w/CR as a safe plan for d/c MATT OKEEFE RN-Care Management - 02/01/2019 12:04 EDT documented in this encounter Plan of Treatment Not on file documented as of this encounter Visit Diagnoses Not on filedocumented in this encounter
--- OUTSIDE RECORDS SUMMARY | 2024-12-22 14:39 | XMS_ITS | Encounter Summary ---
Author Organization [employer] [facility] Address [address] [place] [address] Care Team Providers Care Buffer Inflated Pad Name Role Phone Unavailable Primary Care Provider Unavailabl e Encounter Details Date Type Department Care Team (Late st Contact Info) Description 02/04/2019 Transcribed Document [facility] [place] [facility] [place] [address] ProviderEmilia MD [address] [place] [address] Social History Tobacco Use Types Packs/Day Years Used Date Smoking Tobacco: Never Assessed Sex and Gender Information Value Date Recorded Sex Assigned at Not on file Legal Sex Male 5:19 PM CDT Gender Identity Not on file Sexual Orientation Not on file documented as of this encounter Miscellaneous Notes * Cerner Conversion Note - Historical ProviderMD - 02/04/2019 1:02 PM CDT Post Visit Phone Call Entered On: 02/04/2019 13:04 EDT Performed On: 02/04/2019 13:02 EDT by Marla Augustine Rn Post Visit Phone Call Post Visit Phone Call History : First call Contact Relationship to Patient : Self Contact Name : Johnathan Emergency Room Visit Since DC : No Adequate Pain Control After Visit : Yes Symptoms of Fever : No Symptoms of Nausea or Vomiting : No Adequate Fluid Intake : Yes Food Intake, Post Visit : Good Bowel/Bladder Concerns : Yes Mobility Progressing or Maintained as Expected : Yes Using Continuous Passive Motion Machine : N/A Discharge Instructions Understood : Yes Follow-Up Actions : None Marla Augustine Rn - 02/04/2019 13:02 EDT documented in this encounter Plan of Treatment Not on file documented as of this encounter Visit Diagnoses Not on filedocumented in this encounter
--- OUTSIDE RECORDS SUMMARY | 2024-12-22 14:39 | XMS_ITS | Encounter Summary ---
Author Organization [employer] [facility] [employer] Address [address] [place] [address] Care Team Providers Care Instructional Leader Name Role Phone Unavailable Primary Care Provider Unavailabl e Encounter Details Date Type Department Care Team (Late st Contact Info) Description 01/30/2019 Transcribed Document [facility] [place] [address] [place] [address] ProviderEmilia MD [address] [place] [address] Social History Tobacco Use Types Packs/Day Years Used Date Smoking Tobacco: Never Assessed Sex and Gender Information Value Date Recorded Sex Assigned at Not on file Legal Sex Male 5:19 PM CDT Gender Identity Not on file Sexual Orientation Not on file documented as of this encounter Miscellaneous Notes * Cerner Conversion Note - Historical ProviderMD - 01/30/2019 5:00 AM CDT Chart Check - Review Order Profile Entered On: 01/30/2019 3:07 EDT Performed On: 01/30/2019 5:00 EDT by Ana Villeda Rn Chart Check Powerplans Initiated/Discontinued as Appropriate : Yes All Active Orders Reviewed : Yes Ana Villeda Rn - 01/30/2019 3:07 EDT documented in this encounter Plan of Treatment Not on file documented as of this encounter Visit Diagnoses Not on filedocumented in this encounter
--- OUTSIDE RECORDS SUMMARY | 2024-12-22 14:39 | XMS_ITS | Encounter Summary ---
Author Organization [employer] Address [address] [place] [id number] Care Team Providers Care [employer]ore Name Role Phone Unavailable Primary Care Provider Unavailabl e Encounter Details Date Type Department Care Team (Late st Contact Info) Description 01/30/2019 Transcribed Document [facility] [place] [address] ProviderEmilia MD [address] [place] [address] Social History Tobacco Use Types Packs/Day Years Used Date Smoking Tobacco: Never Assessed Sex and Gender Information Value Date Recorded Sex Assigned at Not on file Legal Sex Male 5:19 PM CDT Gender Identity Not on file Sexual Orientation Not on file documented as of this encounter Miscellaneous Notes * Cerner Conversion Note - Emilia ProviderMD - 01/30/2019 2:57 PM CDT Patient: JOHNATHAN COURTNEY Age: 63 years Sex: Male : 1955 Associated Diagnoses: None Author: KASSANDRA DAVIS MD Subjective Chief complaint. anxious better not in distress Health Status Allergies: Allergic Reactions (Selected) Severity [...] Saline 1,000 mL: 75 mL/Hr, IntraVENous, Stop: 01/31/19 1:35:00 EDT Pepcid: 20 mg, Oral, Daily [...] mg 0.25 mL, IntraVENous, Q6H Problem list: Medical History of obstructive sleep apnea / IMO [id number] / Confirmed, Active Problems (6) CKD (chronic kidney disease) Diabetes mellitus GERD (gastroesophageal reflux disease) History of obstructive sleep apnea [place] (hard of hearing) Hypertension Objective VS/Measurements Vitals Signs (last 24 hrs) Last Charted Minimum Maximum Temp 97.5 (JAN 30 11:00) 97.5 (JAN 30 11:00) 97.6 (JAN 29 21:47) Apical HR 68 (JAN 30 08:06) 68 (JAN 30 08:06) 74 (JAN 29 23:03) Mon HR 64 (JAN 30 11:00) 64 (JAN 30 11:00) 77 (JAN 29:31) Resp Rate 16 (JAN 30:00) 16 (JAN 30 11:00) 20 (JAN 29:47) SBP H 141 (JAN 30:00) 95 (JAN 29 23:31) H 158 (JAN 30 08:06) DBP 69 (JAN 30 11:00) L 59 (JAN 29:) 84 (JAN 29:47) MAP 86 (JAN 30 11:00) 71 (JAN 29 23:31) 97 (JAN 29:47) SpO2 96 (JAN 30 11:00) 95 (JAN 30 06:16) 97 (JAN 29:47) General: Alert and oriented, No acute distress. Eye: Pupils are equal, round and reactive to light, Normal conjunctiva, Vision unchanged. HENT: Normocephalic, Normal hearing. Neck: Supple, Non-tender. Respiratory: Lungs are clear to auscultation, Respirations are non-labored. Cardiovascular: Normal rate, Regular rhythm. Gastrointestinal: Soft, Non-tender, Non-distended. Genitourinary: No costovertebral angle tenderness. Musculoskeletal: Normal range of motion, Normal strength. Integumentary: Warm, Dry. Neurologic: Alert, Oriented, No focal deficits, Cranial Nerves II-XII are grossly intact. Psychiatric: Cooperative, Appropriate mood & affect, Normal judgment. Results Review JAN 30 06:08 136 103 H 27 / H 274 5.0 27 H 2.00 \ JAN 30 06:08 \ 13.8 / 8.2 172 / 43.4 \ JAN 30 06:08 136 103 H 27 / H 274 5.0 27 H 2.00 \ JAN 30 06:08 \ 13.8 / 8.2 172 / 43.4 \ Impression and Plan 1. Chest pain. Patient admitted to the [...] 9. Deep venous thrombosis prophylaxis, heparin. Plan nephrology consult heart cath soon cardiology following labs in am time spent 40 min documented in this encounter Plan of Treatment Not on file documented as of this encounter Visit Diagnoses Not on filedocumented in this encounter
--- OUTSIDE RECORDS SUMMARY | 2024-12-22 14:39 | XMS_ITS | Encounter Summary ---
Author Organization [employer] Address [address] [place] [id number] Care Team Providers Care Horseradish Maker Name Role Phone Unavailable Primary Care Provider Unavailabl e Encounter Details Date Type Department Care Team (Late st Contact Info) Description 05/18/2019 Transcribed Document [facility] Family Medicine [facility] [place] [address] ProviderEmilia MD [address] [place] [address] Social History Tobacco Use Types Packs/Day Years Used Date Smoking Tobacco: Never Assessed Sex and Gender Information Value Date Recorded Sex Assigned at Not on file Legal Sex Male 5:19 PM CDT Gender Identity Not on file Sexual Orientation Not on file documented as of this encounter Miscellaneous Notes * Cerner Conversion Note - Emilia St MD - 05/18/2019 6:16 PM 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 If you had special tests, such as EKG???s or X-rays, the interpretation of your tests given to you by the Emergency Department Physician is a preliminary report. Some fractures and illnesses fail to show up on preliminary tests. These will be reviewed again and we will call you if there are any new suggestions. If your symptoms continue notify your physician. After you leave, you should follow the instructions provided. What to do next Follow-Up Appointments Follow Up with [facility] When Within As needed Comments Patient states Bridgette Boston is their Primary Care Provider. Please contact the Patient Resource Center at if you need assistance scheduling a Specialist or Primary Care Provider in the future. Follow Up with [facility] When Within 2 to 3 days Where: [address] [place] [address]- Business (1) Allergies Contrast Dye Immunizations This Visit No Immunizations Found Medications What How Much When Instructions Next Dose The home medications listed are only as accurate as the information you provided. Please continue taking all of your medications prescribed by your Primary Care Provider unless specifically told to change or discontinue the medication. Please direct any questions regarding your home medications to your Primary Care Provider. Take your medications faithfully. Do NOT skip [...] Please dispose of unused and medications per pharmacy guidance. Test Results Laboratory or Other Results This Visit (last charted value for your 05/18/2019 visit) Hematology 05/18/2019 2:22 PM WBC: 5.4 K/uL -- Normal range between ( 3.6 and 9.5 ) RBC: 4.27 Million/uL -- Normal range between ( 4.20 and 5.70 ) Hct: 39.3 % -- Normal range between ( 40.1 and 51.0 ) Hgb: 12.5 g/dL -- Normal range between ( 13.5 and 17.3 ) Platelet Count: 160 K/uL -- Normal range between ( 163 and 369 ) MCH: 29.3 pg -- Normal range between ( 25.6 and 32.2 ) MCHC: 31.8 Gram/dL -- Normal range between ( 32.2 and 36.5 ) MCV: 92.0 fL -- Normal range between ( 79.0 and 94.8 ) Slide Review: No Eos %: 2.8 % -- Normal range between ( 0.0 and 7.0 ) Garfield #: 0.45 K/uL -- Normal range between ( 0.16 and 1.00 ) Eos #: 0.15 x10(3)/uL -- Normal range between ( 0.00 and 0.80 ) Garfield %: 8.3 % -- Normal range between ( 3.0 and 9.0 ) Baso %: 0.6 % -- Normal range between ( 0.0 and 1.5 ) Baso #: 0.03 x10(3)/uL -- Normal range between ( 0.00 and 0.20 ) RDW: 15.3 % -- Normal range between ( 11.7 and 14.9 ) Neut %: 61.9 % -- Normal range between ( 34.0 and 71.0 ) Neut #: 3.36 K/uL -- Normal range between ( 1.56 and 6.13 ) Lymph %: 26.0 % -- Normal range between ( 19.3 and 53.1 ) Lymph #: 1.41 x10(3)/uL -- Normal range between ( 1.00 and 3.90 ) MPV: 11.4 fL -- Normal range between ( 9.4 and 12.4 ) IG#: 0.02 x10(3)/uL -- Normal range between ( 0.00 and 0.05 ) IG%: 0.40 % -- Normal range between ( 0.00 and 0.60 ) General Chemistry 05/18/2019 2:22 PM Creatinine Level: 1.40 mg/dL -- Normal range between ( 0.70 and 1.30 ) Sodium Level: 137 mmol/L -- Normal range between ( 136 and 146 ) Potassium Level: 4.3 mmol/L -- Normal range between ( 3.5 and 5.1 ) Chloride Level: 106 mmol/L -- Normal range between ( 102 and 112 ) Carbon Dioxide Level: 28 mmol/L -- Normal range between ( 21 and 32 ) Anion Gap: 7 -- Normal range between ( 9 and 20 ) Bun/Creatinine: 12.1 -- Normal range between ( 8.0 and 20.0 ) Calcium Level: 8.8 mg/dL -- Normal range between ( 8.4 and 10.1 ) eGFR : >60 mL/min/1.73m2 eGFR NonAfrican: 52 mL/min/1.73m2 Glucose Level: 286 mg/dL -- Normal range between ( 74 and 106 ) Magnesium Level: 1.8 mg/dL -- Normal range between ( 1.5 and 2.4 ) Blood Urea Nitrogen: 17 mg/dL -- Normal range between ( 7 and 22 ) Cardiac Specific Markers 05/18/2019 5:22 PM Troponin I Ultra: <0.015 ng/mL -- Normal range between ( 0.015 and 0.045 ) 05/18/2019 2:22 PM ProBNP: 416 pg/mL -- Normal range between ( 0 and 125 ) Coagulation 05/18/2019 2:22 PM INR: 1.0 -- Normal range between ( 0.9 and 1.1 ) PTT: 26.8 Second(s) -- Normal range between ( 24.0 and 34.0 ) PT: 10.0 Second(s) -- Normal range between ( 9.6 and 12.0 ) Diagnostic Radiology 05/18/2019 2:25 PM CR Chest 1 Vw Portable: CR Chest 1 Vw Portable [employer] Angina Pectoris Angina pectoris, often called angina, is extreme discomfort in the chest, neck, or arm. The discomfort is caused by a lack of blood in the middle and thickest layer of the heart wall (myocardium). Angina is often described as a heaviness, tightness, aching, or pressure in the chest. The discomfort can also be felt in the left arm, neck, jaw, or, back. Angina can last a few minutes, or it can last longer. There are different types of angina. It can be brought on by: ??? Physical activity. ??? Stress or excitement. ??? A large meal. ??? Exposure to cold temperatures. There are four types of angina: stable, unstable, microvascular, and Prinzmetal or variant. What are the causes? This condition is most often caused by atherosclerosis. This is the buildup of fat and cholesterol (plaque) on the inside of the arteries. Over time, the plaque may narrow or block the artery, which lessens blood flow to the heart. Plaque can also break off inside of an artery that supplies blood to the heart (coronary artery) and form a clot that causes a sudden blockage. Other causes of angina include: ??? Coronary spasm. This is a sudden tightening (spasm) in the coronary arteries. ??? Coronary artery dissection. This is when the lining of a coronary artery splits open and blocks blood flow to the heart. ??? Heart valve disease. ??? Cardiomyopathy, or other heart disease. ??? Radiation to the left side of the chest. What increases the risk? You are more likely to develop this condition if: ??? You have high cholesterol levels. ??? You have high blood pressure (hypertension). ??? You use tobacco. ??? You have diabetes. ??? You have a family history of heart disease. ??? You are obese. ??? You have an inactive (sedentary) lifestyle or do not exercise enough. ??? You eat a diet high in saturated fats. ??? You have depression. ??? You are exposed to high stress or emotional triggers of stress. ??? You use drugs, such as cocaine. ??? You have had radiation to the left side of the chest. Women have a greater risk for angina if they: ??? Are over age 55. ??? Have gone through menopause (are postmenopausal). What are the signs or symptoms? Common symptoms in both men and women may include: ??? Chest pain. ? The pain may feel like a crushing or squeezing in the chest, or a tightness, pressure, fullness, or heaviness in the chest. ? The pain may last for more than a few minutes at a time, or it may stop and come back (recur) over the course of a few minutes. ??? Pain in the arms, neck, jaw, or back. ??? Unexplained heartburn or indigestion. ??? Shortness of breath. ??? Nausea. ??? Sudden cold sweats. ??? Sudden light-headedness. Many women have chest discomfort and some of the other symptoms. However, women often have unusual (atypical) symptoms, such as: ??? Fatigue. ??? Unexplained feelings of nervousness or anxiety. ??? Unexplained weakness. ??? Dizziness or fainting. Sometimes, women may have angina without any symptoms. How is this diagnosed? This condition may be diagnosed based on: ??? Your symptoms and medical history. ??? Electrocardiogram (ECG). This measures electrical activity in the heart. ??? Blood tests. ??? Exercise stress test. This looks for signs of blockage when the heart is being exercised. ??? Pharmacologic stress test. This test looks for signs of blockage when the heart is being stressed with a medicine. ??? CT angiogram. This procedure examines the heart and the area around the heart, including the blood flow to the heart. ??? Coronary angiogram. This procedure examines the coronary arteries to see if there is any blockage. How is this treated? Angina may be treated with: ??? Medicines, such as: ? Anti-platelet medicines, such as aspirin, to decrease the risk of blood clots and heart attack. ? Nitrates, which relax blood vessel brooks and improve blood flow to the heart. ? Blood pressure medicines. These medicines improve the pumping action of the heart and relax blood vessels that are spasming. ? Cholesterol-reducing medicines that help treat atherosclerosis. ??? Healthy behavioral changes to reduce or control risk factors. ??? A procedure to widen a narrowed or blocked coronary artery (angioplasty). When angioplasty is performed, a mesh tube may be placed in a coronary artery to keep it open (coronary stenting). ??? Surgery to allow blood to go around a blockage in a coronary artery (coronary artery bypass surgery). Follow these instructions at home: Medicines ??? Take [id number] and prescription medicines only as told by your health care provider. ??? Do not take the following medicines unless your health care provider approves: ? NSAIDs, such as ibuprofen, naproxen, or celecoxib. ? Vitamin supplements that contain vitamin A, vitamin E, or both. ? Hormone replacement therapy that contains estrogen with or without progestin. Eating and drinking ??? Eat a heart-healthy diet. A heart-healthy diet includes plenty of fresh fruits and vegetables, whole grains, lowfat (lean) protein, and lowfat dairy products. Your health care provider may recommend that you work with a diet and holistic nutritionist (registered dietitian) to educate you about healthy food choices. ??? Use healthy cooking methods such as roasting, grilling, broiling, baking, poaching, steaming, or stir-frying. Talk with a dietitian to learn more about healthy cooking methods. ??? Follow instructions from your health care provider about eating or drinking restrictions. Activity ??? Follow an exercise program approved by your health care provider. ??? Return to your normal activities as told by your health care provider. Ask your health care provider what activities are safe for you. ??? When you feel fatigued, take a break. Plan rest periods if you know you are going to feel tired. Lifestyle ??? Do not use any products that contain nicotine or tobacco, such as cigarettes and e-cigarettes. If you need help quitting, ask your health care provider. ??? If your health care provider approves, limit alcohol intake to no more than 1 drink a day for non women and 2 drinks a day for men. One drink equals 12 oz of beer, 5 oz of wine, or 1?? oz of hard liquor. General instructions ??? Maintain a healthy weight. If directed, work with your health care provider to lose weight. ??? Learn to manage stress. If you need help with this, ask your health care provider. ??? Take a depression screening test to see if you are at risk for depression. If you feel depressed, talk with your health care provider. ??? Work with your health care provider to manage any other health conditions you have, such as hypertension or diabetes. ??? Keep all follow-up visits as told by your health care provider. This is important. Get help right away if: ??? You have pain in your chest, neck, arm, jaw, stomach, or back that: ? Lasts more than a few minutes. ? Is recurring. ? Is not relieved by taking nitroglycerin medicines under the tongue (sublingual nitroglycerin). ? Increases in intensity or frequency. ??? You have a lot of sweating without cause. ??? You have unexplained: ? Heartburn or indigestion. ? Shortness of breath or difficulty breathing. ? Nausea or vomiting. ? Fatigue. ? Feelings of nervousness or anxiety. ? Weakness. ? Diarrhea. ??? You have sudden light-headedness or dizziness. ??? You faint. These symptoms may represent a serious problem that is an emergency. Do not wait to see if the symptoms will go away. Get medical help right away. Call your local emergency services (911 in the [place] Do not drive yourself to the hospital. Summary ??? Angina pectoris is extreme discomfort in the chest, neck, or arm that is caused by a lack of blood in the heart wall. Angina pectoris is most often caused by atherosclerosis. ??? There are four types of angina: stable, unstable, microvascular, and Prinzmetal or variant. ??? Symptoms of angina include chest pain, pain in the arms, neck, jaw, or back, unexplained heartburn or indigestion, shortness of breath, nausea, and sudden cold sweats or light-headedness. Atypical symptoms are more common in women and include fatigue, nervousness or anxiety, weakness, dizziness, or fainting. ??? Angina may be treated with behavioral changes, medicine, angioplasty, angioplasty with stenting, or bypass surgery. This information is not intended to replace advice given to you by your health care provider. Make sure you discuss any questions you have with your health care provider. Document Released: 2006 Document Revised: 07/28/2017 Document Reviewed: 07/28/2017 [employer] Interactive Patient Education ?? 2019 [employer] Emergency Awareness and Preventative Care STROKE is an EMERGENCY Every Minute Counts Act FAST and Check for these signs: FACE Does the face look uneven? ARM Does one arm drift down? SPEECH Does their speech sound strange? TIME Call at any sign of stroke Stroke Risk Factors Atrial Fibrillation (irregular heartbeat) Diabetes Family history of stroke Heart Disease Heavy alcohol use High Blood Pressure High Cholesterol Physical inactivity and obesity Smoking Cigarette Smoking The facts are clear, cigarette smoking will shorten your life. Smoking can cause many illnesses along the way. As a healthcare provider, we recommend that you stop smoking. Assistance with quitting is available by contacting 0-318-ETLLNOW. This is a free resource providing counseling, support, and referral. Or you may contact your personal physician. National Suicide Prevention Lifeline: The National Suicide Prevention Lifeline is a national network of local crisis centers that provides free and confidential emotional support to people in suicidal crisis or emotional distress 24 hours a day, 7 days a week. Don't Wait! Stop a Heart Attack Before it Starts What is a heart attack? A heart attack is damage or to a part of the heart from severely decreased or lack of blood flow to the heart. Over time, arteries can become narrow from the buildup of fat and cholesterol, which is called plaque. The plaque can rupture causing a blood clot to form. When the blood clot forms, the artery can become severely narrowed or completely blocked, causing a heart attack. Heart attack is the leading cause of in the [place]. 85% of muscle damage occurs within the first 2 hours. Delay in the recognition of heart attack symptoms increases the chances of . Know the early symptoms of a heart attack: Nausea Feeling of fullness in chest Jaw Pain Pain that travels down one or both arms Fatigue/being tired Anxiety Back Pain Chest pressure, squeezing, or discomfort Shortness of breath Sweating, or a cold sweat Feeling of impending doom There are unusual signs of a heart attack, too! Women, the elderly, and diabetics may present with atypical symptoms: Fainting/dizziness Weakness Confusion Risk Factors for a Heart Attack Some heart disease risk factors, such as age and family history, cannot be changed. Others, like smoking and lack of exercise, can be changed. Smoking High Cholesterol High Blood Pressure Family History Obesity Age Gender (Males are at higher risk) Lack of Exercise Diabetes Diet Stress Excessive Alcohol Intake If you or someone you know is experiencing the signs and symptoms of a heart attack, DON???T DELAY. Call immediately and seek help. If someone collapses, perform CPR! Do not attempt to drive if you are having symptoms of heart attack. Hands-Only CPR Why Hands-Only CPR? Hands-Only CPR has been shown to be as effective as conventional CPR for cardiac arrests that occur outside of a hospital. Survival depends on immediately receiving CPR from someone nearby. How do you perform Hands-Only CPR? There are two easy steps: Call 9-1-1 if you see a teen or adult collapse Push hard and fast in the center of the chest at a beat of 100 beats per minute. Save a life! 4 WAYS TO GET AHEAD OF SEPSIS SEPSIS is a MEDICAL EMERGENCY. Time matters! Infections put you and your family at risk for a life-threatening condition called sepsis. Sepsis is the body's extreme response to an infection. It is life-threatening, and without timely treatment, sepsis can rapidly lead to tissue damage, organ failure, and . Sepsis happens when an infection you already have-in your skin, lungs, urinary tract or somewhere else-triggers a chain reaction throughout your body. 1 PREVENT INFECTIONS Take good care of chronic conditions. Talk to your doctor about getting the recommended vaccines. 2 PRACTICE GOOD HYGIENE Wash your hands frequently. Keep cuts or open sores clean and covered until they are healed. 3 KNOW THE SYMPTOMS Confusion or disorientation Shortness of breath High heart rate Fever, shivering, or feeling very cold Extreme pain or discomfort Clammy or sweaty skin 4 ACT FAST Get medical care IMMEDIATELY if you suspect sepsis or if you have an infection that is not getting better or is getting worse. To learn more about sepsis and how to prevent infections, visit www.cdc.gov/sepsis. The examination and treatment you have received in the Emergency Department has been done to provide an appropriate evaluation and stabilizing treatment on an emergency basis only. Given the limited resources, it is not meant to be a substitute for complete medical care. The follow-up doctor you named will receive a copy of your records and all test reports. IT IS IMPORTANT THAT YOU SCHEDULE A FOLLOW-UP APPOINTMENT AND ARE RE-EVALUATED. You should report any new complaints, symptoms, or remaining problems at that time. IT IS IMPOSSIBLE FOR THE EMERGENCY DEPARTMENT TO RECOGNIZE AND TREAT ALL ELEMENTS OF INJURY OR ILLNESS IN A SINGLE VISIT. If you have been referred to a specialist physician, it means that we believe you may have a condition that requires the expertise of a specialist. These physicians work in partnership with the hospital and have agreed to see referred patients in their office for further evaluation. KEEP IN MIND THAT THE SPECIALIST HAS HIS/HER OWN OFFICE POLICIES WHICH MAY REQUIRE PROPER INSURANCE OR PAYMENT UP FRONT BEFORE THE SPECIALIST WILL SEE YOU. It is your responsibility to call the specialist physician to make an appointment. We do not have the ability to refer patients to specialists/physicians that work with specific insurance companies. Please be advised that all financial charges or billing practices are determined by that practice, not the hospital. If your insurance company requires that you see a specialist from their approved list, it is your responsibility to contact your insurance company to make those arrangements. It is also your responsibility to follow any other requirements of your insurance company necessary to obtain coverage for claims submitted. We will bill your insurance; however, you are responsible today for any co-pay amounts. You will receive a separate bill for any services you may have received including: emergency, radiology, or pathology physicians. Patient Name:JOHNATHAN PARHAM I have received this information and was given the opportunity to ask questions. Patient/Ware Server Name: Patient/Ware Server Signature: Relationship to Patient: Clinician/Hospital Ware Server Signature: Please Provide a Telephone Number Where You Can Be Reached: Is it Permissible To Leave a Message? Date: documented in this encounter Plan of Treatment Not on file documented as of this encounter Visit Diagnoses Not on filedocumented in this encounter
--- OUTSIDE RECORDS SUMMARY | 2024-12-22 14:39 | XMS_ITS | Encounter Summary ---
Author Organization [facility] In iatives Address [address] [place] [address] Care Team Providers Care Inside Account Executive Name Role Phone Unavailable Primary Care Provider Unavailabl e Encounter Details Date Type Department Care Team (Late st Contact Info) Description 02/02/2019 Transcribed Document [facility] [place] Family [place] [address] ProviderEmilia MD [address] [place] [address] Social History Tobacco Use Types Packs/Day Years Used Date Smoking Tobacco: Never Assessed Sex and Gender Information Value Date Recorded Sex Assigned at Not on file Legal Sex Male 5:19 PM CDT Gender Identity Not on file Sexual Orientation Not on file documented as of this encounter Miscellaneous Notes * Cerner Conversion Note - Emilia ProviderMD - 02/02/2019 10:42 AM CDT Patient: JOHNATHAN COURTNEY Age: 63 years Sex: Male : 1955 Associated Diagnoses: None Author: KASSANDRA DAVIS MD Subjective Chief complaint. anxious better not in distress awake had heart cath Health Status Allergies: Allergic Reactions (Selected) Severity Not Documented Contrast Dye- No reactions were documented., Allergies (1) Active Reaction Contrast Dye None Documented Current medications: (Selected) Inpatient Medications Ordered Ativan: 0.5 mg, IV Push, Q4H, PRN: Agitation Core mg, Oral, BID DuoNeb 0.5 mg-2.5 mg/3 mL inhalation solution: 3 mL, Nebulized Inhalation, Q6H, PRN: Shortness of Breath Lantus: 30 Units, SubCutaneous, BID Mucinex: 600 mg, Oral, BID Normal Saline Flush: 10 mL, IV Push, Q12H Normal Saline Flush: 10 mL, IV Push, Q12H Normal Saline Flush: 10 mL, IV Push, See Comment, PRN: IV Use Normal Saline Flush: 10 mL, IV Push, See Comment, PRN: IV Use Pepcid: 20 mg, Oral, Daily Phenergan: 6.25 mg, IntraVENous, Q6H, PRN: Nausea Sodium Chloride 0.9% intravenous solution 500 mL: [...] (Severe 7-10) rosuvastatin: 40 mg, Oral, Daily Prescriptions Prescribed amLODIPine 5 mg oral tablet: 1 Tab, Oral, Daily, for 30 Day(s), 30 Tab, 0 Refill(s) Documented Medications Documented Coreg [...] Oral, BID, 60 Tab, 0 Refill(s) isosorbide mononitrate 60 mg oral tablet, extended release: 1 Tab, Oral, Daily, 0 Refill(s) rosuvastatin 40 mg oral tablet: 1 Tab, Oral, Daily, 30 Tab, 0 Refill(s), Home Medications (9) Active amLODIPine 5 mg oral tablet 5 mg = 1 Tab, Oral, Daily aspirin 81 mg oral delayed release tablet 81 mg = 1 Tab, Oral, Daily clopidogrel 75 mg oral tablet 75 mg = 1 Tab, Oral, Daily Coreg 25 mg oral tablet 25 mg = 1 Tab, Oral, BID glipiZIDE 10 mg oral tablet 10 mg = 1 Tab, Oral, Daily hydrALAZINE 25 mg oral tablet 25 mg = 1 Tab, Oral, BID isosorbide mononitrate 60 mg oral tablet, extended release 60 mg = 1 Tab, Oral, Daily rosuvastatin 40 mg oral tablet 40 mg = 1 Tab, Oral, Daily Synthroid 75 mcg (0.075 mg) oral tablet 75 mcg = 1 Tab, Oral, Daily , Medications (27) Active Scheduled: (16) #NaCl 0.9% *FLUSH* inj 10 mL 10 mL, IV Push, Q12H #NaCl 0.9% *FLUSH* inj 10 mL 10 mL, IV Push, Q12H amLODIPine 5 mg tab 5 mg 1 Tab, Oral, Daily aspirin EC 81 mg tab 81 mg 1 Tab, Oral, Daily atorvastatin 40 mg tab 80 mg 2 Tab, Oral, PREOP carvedilol 25 mg tab 25 mg 1 Tab, Oral, BID clopidogrel 75 mg tab 75 mg 1 Tab, Oral, Daily famotidine 20 mg tab 20 mg 1 Tab, Oral, Daily guaiFENesin 600 mg ER tab 600 mg 1 Tab, Oral, BID heparin 5,000 units/1 mL inj 5,000 Units 1 mL, SubCutaneous, Q8H hydrALAZINE 25 mg tab 25 mg 1 Tab, Oral, BID insulin glargine 1 unit/0.01 mL inj 30 Units 0.3 mL, SubCutaneous, BID insulin lispro 1 unit/0.01 mL inj 76 kg - 100 kg scale, SubCutaneous, AC and at Bedtime isosorbide MONOnitrate ER 60 mg tab 60 mg 1 Tab, Oral, Daily levothyroxine 75 mcg tab 75 mcg 1 Tab, Oral, Daily rosuvastatin 40 mg tab 40 mg 1 Tab, Oral, Daily Continuous: (1) NaCl 0.9% 500 mL 500 mL, IntraVENous PRN: (10) #NaCl 0.9% *FLUSH* inj 10 mL 10 mL, IV Push, See Comment #NaCl 0.9% *FLUSH* inj 10 mL 10 mL, IV Push, See Comment acetaminophen 325 mg tab 650 mg 2 [...] History of obstructive sleep apnea / IMO [id number] / Confirmed, Active Problems (6) CKD (chronic kidney disease) Diabetes mellitus GERD (gastroesophageal reflux disease) History of obstructive sleep apnea [place] (hard of hearing) Hypertension Objective VS/Measurements Vitals Signs (last 24 hrs) Last Charted Minimum Maximum Temp 97.4 (FEB 02 05:10) 97.4 (FEB 02 05:10) 98 (FEB 01 11:30) Apical HR 68 (FEB 02 08:27) 68 (FEB 02 08:27) 76 (FEB 01 21:31) Mon HR 67 (FEB 02 05:10) 66 (FEB 01 10:45) 89 (FEB 01 18:28) Resp Rate 18 (FEB 02 05:10) 16 (FEB 01 11:15) 20 (FEB 01 10:45) SBP H 154 (FEB 02 05:10) 139 (FEB 01 12:00) H 171 (FEB 01 11:30) DBP 68 (FEB 02 05:10) 68 (FEB 02 05:10) H 105 (FEB 01 18:28) MAP 101 (FEB 02 05:10) 94 (FEB 01 14:30) 122 (FEB 01 18:28) SpO2 97 (FEB 02 05:10) L 93 (FEB 02 03:00) 99 (FEB 01 11:30) General: Alert and oriented, No acute distress. [...] mood & affect, Normal judgment. Results Review FEB 02 03:25 L 134 L 101 H 35 / H 300 4.5 23 H 1.70 \ FEB 02 03:25 \ 13.9 / 8.2 171 / 42.4 \ FEB 02 03:25 L 134 L 101 H 35 / H 300 4.5 23 H 1.70 \ FEB 02 03:25 \ 13.9 / 8.2 171 / 42.4 \ Impression and Plan 1. Chest pain. heart cath in am 2. Diabetes mellitus. We will start sliding scale. 3. Hypertension, resume home medication plus hydralazine as needed. 4. History of chronic kidney disease. Nephrology consult Avoid nephrotoxic medication. 5. Obesity, recommend diet and exercise. 6. Hypothyroidism, levothyroxine to be continued. 7. Hyperlipidemia on statin, to be continued. 8. Gastrointestinal prophylaxis, Pepcid. 9. Deep venous thrombosis prophylaxis, heparin. 1. Chest pain. 2. Status post heart catheterization. 3. History of coronary artery disease status post coronary artery bypass graft. 4. Hypertension. 5. Acute on chronic kidney disease. 6. Hyperlipidemia. 7. Diabetes mellitus type 2. 8. Morbid obesity. Plan nephrology following heart cath done cardiology following labs in am home today time spent 40 min documented in this encounter Plan of Treatment Not on file documented as of this encounter Visit Diagnoses Not on filedocumented in this encounter
--- OUTSIDE RECORDS SUMMARY | 2024-12-22 14:39 | XMS_ITS | Encounter Summary ---
Author Organization [employer] [facility] Address [address] [place] [address] Care Team Providers Care Motor Vehicle License Clerk Name Role Phone Unavailable Primary Care Provider Unavailabl e Encounter Details Date Type Department Care Team (Late st Contact Info) Description 02/02/2019 Transcribed Document [facility] [place] [facility] [place] [address] ProviderEmilia MD [address] [place] [address] Social History Tobacco Use Types Packs/Day Years Used Date Smoking Tobacco: Never Assessed Sex and Gender Information Value Date Recorded Sex Assigned at Not on file Legal Sex Male 5:19 PM CDT Gender Identity Not on file Sexual Orientation Not on file documented as of this encounter Miscellaneous Notes * Cerner Conversion Note - Emilia ProviderMD - 02/02/2019 12:38 AM CDT Rapid Response Team Documentation Entered On: 02/02/2019 1:55 EDT Performed On: 02/02/2019 0:38 EDT by SHEREEN ZURITA RN Rapid Response Event Time Rapid Response Team Called : 02/02/2019 0:38 EDT Rapid Response Team Arrival Time : 02/02/2019 1:15 EDT Rapid Response Team Event End Time : 02/02/2019 1:30 EDT Rapid Response Event Intiated By : Hospital Staff Rapid Response Team Initiation Reason : Peripheral IV start Rapid Response Event Location Type : Other: 400 Rapid Response Team Initiation Reason Details : 2 prior attempts. 20g x1 left hand. Rapid Response Admission Diagnosis : Other specified abnormal findings of blood chemistry Other specified abnormal findings of blood chemistry Rapid Response Medical Background : CKD (chronic kidney disease) (Patient Stated) Diabetes mellitus (Patient Stated) GERD (gastroesophageal reflux disease) (Patient Stated) [place] (hard of hearing) (Patient Stated) History of obstructive sleep apnea (Medical) Hypertension (Patient Stated) Rapid Response Allergies : Substance Category Reactions Severity Contrast Dye Other Rapid Response Recent Vital Signs : 02/01/2019 23:00 Systolic Blood Pressure 163 02/01/2019 23:00 Diastolic Blood Pressure 97 02/01/2019 23:00 Heart Rate Monitored 68 02/01/2019 21:31 Heart Rate, Apical 76 02/01/2019 23:00 Respiratory Rate 18 02/01/2019 23:00 Temperature, Fahrenheit 98.2 02/01/2019 23:00 Oxygen Saturation 94 Rapid Response Recent Lab Results : 02/01/2019 05:17 Sodium Level 137 (136-146) 02/01/2019 05:17 Potassium Level 4.4 (3.5-5.1) 02/01/2019 05:17 Calcium Ionized 1.29 (1.12-1.32) 02/01/2019 05:17 Calcium Level 9.7 (8.4-10.1) 02/01/2019 05:17 Magnesium Level 2.1 (1.5-2.4) 01/29/2019 22:42 eAVG Glucose NA 189 02/01/2019 20:50 Glucose POC2 HI 377 (70-110) 02/01/2019 05:17 Chloride Level 105 (102-112) 02/01/2019 05:17 Carbon Dioxide Level 27 (21-32) 02/01/2019 05:17 Blood Urea Nitrogen HI 28 (7-22) 02/01/2019 05:17 Creatinine Level HI 1.60 (0.70-1.30) 01/29/2019 22:42 Hgb A1C NA 8.2 02/01/2019 05:17 Hgb LOW 13.3 (13.5-17.3) 02/01/2019 05:17 Hct 41.6 (40.1-51.0) 02/01/2019 05:17 RBC 4.54 (4.20-5.70) 02/01/2019 05:17 WBC 5.9 (3.6-9.5) 02/01/2019 05:17 Platelet Count 163 (163-369) 01/29/2019 22:42 Lactic Acid Level 1.0 (0.4-2.0) 01/30/2019 06:08 Troponin I Ultra <0.015 (0.015-0.045) 01/29/2019 22:42 Lipase Level 244 (73-393) Weight/BMI : Clinical Weight/BMI CLINICALWEIGHT: 135.91 kg (01/29/19 22:48:00) Body Mass Index: 40.6 kg/m2 Critical (01/29/19 22:48:00) Rapid Response Motor Vehicle License Clerk #1 : SHEREEN ZURITA V, RN SHEREEN ZURITA V, RN - 02/02/2019 1:36 EDT Electronically signed by Rehan [facility] Conversion Conditioning Yard Supervisor Cerner at 10/22/2022 11:09 PM CDT documented in this encounter Plan of Treatment Not on file documented as of this encounter Visit Diagnoses Not on filedocumented in this encounter
--- OUTSIDE RECORDS SUMMARY | 2024-12-22 14:39 | XMS_ITS | Encounter Summary ---
Author Organization [employer] Address [address] [place] [address] Care Team Providers Care Sand Analyst Name Role Phone Unavailable Primary Care Provider Unavailabl e Encounter Details Date Type Department Care Team (Late st Contact Info) Description 02/02/2019 Transcribed Document [facility] [place] Family Medicine [facility] [place] [address] ProviderEmilia MD [address] [place] [address] Social History Tobacco Use Types Packs/Day Years Used Date Smoking Tobacco: Never Assessed Sex and Gender Information Value Date Recorded Sex Assigned at Not on file Legal Sex Male 5:19 PM CDT Gender Identity Not on file Sexual Orientation Not on file documented as of this encounter Miscellaneous Notes * Cerner Conversion Note - Emilia ProviderMD - 02/02/2019 12:04 PM CDT Final Discharge Planning Entered On: 02/02/2019 12:08 EDT Performed On: 02/02/2019 12:04 EDT by ANNETTE ENCARNACION RN-Supervisor Inspection Final Discharge Planning Discharge Arrangements : Patient Post-Acute Information Patient Name: JOHNATHAN PARHAM Gender: Male : [birth year] Age: 63 Years No Post-Acute Placement(s) Listed No Post-Acute Service(s) Listed No [place] Referral(s) Listed Follow Up Appointment Scheduled : Yes Is Patient High/Moderate Readmission Risk? : Yes Moderate Readmission Risk - Home, no home health : Make post-discharge physician appointment within 5-7 days of discharge. Patient/Family Notified of Plan : Yes Support Person/Pt Rep Notified of Plan : Yes Is Patient Ready for Discharge? : Yes Physician Notified Patient is Ready for Discharge? : Yes Discharge To Care Management : Home/Residential/Group Home or Self Care -01 ANNETTE ENCARNACION RN-Supervisor Inspection - 02/02/2019 12:04 EDT Final Narrative Note Final Narrative Note : pt discharge home with . appointment with enterostomal nurse made on 02/04 at 0815, with ANIL Lopez. [id number]. pt for dc with 70/30 insulin and UK to f/u with pt's home rgiment of humalin and assistance with supplies and affordability. ANNETTE ENCARNACION, TONIO-Supervisor Inspection - 02/02/2019 12:04 EDT Electronically signed by Kiara Van Conversion Suppository Molding Machine Operator Cerner at 10/22/2022 11:03 PM CDT documented in this encounter Plan of Treatment Not on file documented as of this encounter Visit Diagnoses Not on filedocumented in this encounter
--- OUTSIDE RECORDS SUMMARY | 2024-12-22 14:39 | XMS_ITS | Encounter Summary ---
Author Organization [employer] [facility] Address [address] [place] [address] Care Team Providers Care Feeder Loader Name Role Phone Unavailable Primary Care Provider Unavailabl e Encounter Details Date Type Department Care Team (Late st Contact Info) Description 02/02/2019 Transcribed Document [facility] [place] Family Medicine [facility] [place] [address] ProviderEmilia MD [facility] [place], [place] [address]141 Social History Tobacco Use Types Packs/Day Years Used Date Smoking Tobacco: Never Assessed Sex and Gender Information Value Date Recorded Sex Assigned at Not on file Legal Sex Male 5:19 PM CDT Gender Identity Not on file Sexual Orientation Not on file documented as of this encounter Miscellaneous Notes * Cerner Conversion Note - Historical ProviderMD - 02/02/2019 1:03 PM CDT Patient: JOHNATHAN COURTNEY Age: 63 Years Sex: Male : 1955 Subjective stable renal function. Doing otherwise well, IV fluids stopped Vital Signs T: 36.4 ??C TMIN: 36.3 ??C TMAX: 36.8 ??C HR: 97(Monitored) RR: 16 BP: 167/83 SpO2: 100% Oxygen Settings (Last) Oxygen Therapy Mode: Room air (02/02/19 12:06:00 EDT) Intake & Output Totals Last 24 Hours (7a-7a) Input Total: 10 mL Output Total: 0 mL Balance: 10 mL Physical Exam Constitutional: [No fevers, chills, [...] to prevent the risk of KLEBER - stable renal function post cath. Can be discharged from renal standpoint. Hyperkalemia: related to CKD Improved HTN: stable. Can resume [place] inh on discharge CAD s/p CABG: +stress test Angiogram 02/01 DM: Uncontrolled VTE Prophylaxis - Medical Clopidogrel 75 mg, [...] 60 mg= 1 Tab, Oral, Daily Lantus, 30 Units= 0.3 mL, SubCutaneous, BID morphine, 2 mg= 1 [...] mg= 1 Tab, Oral, Daily Sodium Chloride 0.9% intravenous solution 500 mL, 500 mL, IntraVENous Synthroid, 75 mcg= 1 Tab, Oral, Daily Tylenol, 650 mg= 2 Tab, Oral, Q4H, PRN Zofran, 4 mg= 2 mL, IV Push, Q4H, PRN Lab Results Test Name Test Result Date/Time Sodium Level 134 mmol/L (Low) 02/02/2019 03:25 EDT Potassium Level 4.5 mmol/L 02/02/2019 03:25 EDT Chloride Level 101 mmol/L (Low) 02/02/2019 03:25 EDT Carbon Dioxide Level 23 mmol/L 02/02/2019 03:25 EDT Anion Gap 14 02/02/2019 03:25 EDT Glucose Level 300 mg/dL (High) 02/02/2019 03:25 EDT Blood Urea Nitrogen 35 mg/dL (High) 02/02/2019 03:25 EDT Creatinine Level 1.70 mg/dL (High) 02/02/2019 03:25 EDT eGFR 50 mL/min/1.73m2 (Low) 02/02/2019 03:25 EDT eGFR NonAfrican 41 mL/min/1.73m2 (Low) 02/02/2019 03:25 EDT Bun/Creatinine 20.6 (High) 02/02/2019 03:25 EDT Calcium Level 9.7 mg/dL 02/02/2019 03:25 EDT Device Comment 1 Notified MD RBV 02/02/2019 12:40 EDT Device Comment 1 Notified Nurse RBV 02/02/2019 06:05 EDT Device Comment 1 Notified Nurse RBV 02/01/2019 20:50 EDT Device Comment 1 Notified MD RBV 02/01/2019 17:01 EDT Glucose POC2 371 mg/dL (High) 02/02/2019 12:40 EDT Glucose POC2 318 mg/dL (High) 02/02/2019 06:05 EDT Glucose POC2 377 mg/dL (High) 02/01/2019 20:50 EDT Glucose POC2 384 mg/dL (High) 02/01/2019 17:01 EDT WBC 8.2 K/uL 02/02/2019 03:25 EDT RBC 4.67 Million/uL 02/02/2019 03:25 EDT Hgb 13.9 g/dL 02/02/2019 03:25 EDT Hct 42.4 % 02/02/2019 03:25 EDT MCV 90.8 fL 02/02/2019 03:25 EDT MCH 29.8 pg 02/02/2019 03:25 EDT MCHC 32.8 Gram/dL 02/02/2019 03:25 EDT Platelet Count 171 K/uL 02/02/2019 03:25 EDT MPV 11.4 fL 02/02/2019 03:25 EDT RDW 15.9 % (High) 02/02/2019 03:25 EDT Neut % 86.2 % (High) 02/02/2019 03:25 EDT Neut # 7.05 K/uL (High) 02/02/2019 03:25 EDT Lymph % 8.6 % (Low) 02/02/2019 03:25 EDT Lymph # 0.70 x10(3)/uL (Low) 02/02/2019 03:25 EDT [place] % 4.3 % 02/02/2019 03:25 EDT [place] # 0.35 K/uL 02/02/2019 03:25 EDT Eos % 0.0 % 02/02/2019 03:25 EDT Eos # 0.00 x10(3)/uL 02/02/2019 03:25 EDT Baso % 0.2 % 02/02/2019 03:25 EDT Baso # 0.02 x10(3)/uL 02/02/2019 03:25 EDT Slide Review No 02/02/2019 03:25 EDT IG# 0.06 x10(3)/uL (High) 02/02/2019 03:25 EDT IG% 0.70 % (High) 02/02/2019 03:25 EDT Electronically signed by Rehan [facility] Conversion Learning Center Coordinator Cerner at 10/22/2022 11:09 PM CDT documented in this encounter Plan of Treatment Not on file documented as of this encounter Visit Diagnoses Not on filedocumented in this encounter
--- OUTSIDE RECORDS SUMMARY | 2024-12-22 14:39 | XMS_ITS | Encounter Summary ---
Author Organization [facility] iatives Address [address] [place] [address] Care Team Providers Care Supply Chain Tech Name Role Phone Unavailable Primary Care Provider Unavailabl e Encounter Details Date Type Department Care Team (Late st Contact Info) Description 02/01/2019 Transcribed Document [facility] [place] [facility] [place] [address] ProviderEmilia MD [address] [place] [address] Social History Tobacco Use Types Packs/Day Years Used Date Smoking Tobacco: Never Assessed Sex and Gender Information Value Date Recorded Sex Assigned at Not on file Legal Sex Male 5:19 PM CDT Gender Identity Not on file Sexual Orientation Not on file documented as of this encounter Miscellaneous Notes * Cerner Conversion Note - Emilia ProviderMD - 02/01/2019 12:15 PM CDT DATE OF ADMISSION: 01/29/2019 DATE OF DISCHARGE: DISCHARGE SUMMARY DISCHARGE DIAGNOSES: 1. Chest pain. 2. Status post heart catheterization. 3. History of coronary artery disease status post coronary artery bypass graft. 4. Hypertension. 5. Acute on chronic kidney disease. 6. Hyperlipidemia. 7. Diabetes mellitus type 2. 8. Morbid obesity. DISCHARGE INSTRUCTIONS: Diet: According to [place] [employer]. Activities: As tolerated. Followup appointment with primary care physician in three to four days. Followup appointment with Nephrology in one to two weeks. Followup appointment with Cardiology in one to two weeks. DISPOSITION: Home. DISCHARGE MEDICATIONS: 1. Glipizide 10 mg daily. 2. Norvasc 5 mg a day. 3. Aspirin 81 mg daily. 4. Coreg 25 mg twice daily. 5. Plavix 75 mg a day. 6. Hydralazine 25 mg twice a day. 7. Synthroid 75 mcg a day. 8. Rosuvastatin 40 mg daily. 9. Isosorbide mononitrate 60 mg daily. HISTORY AND HOSPITAL COURSE: This is a 63-year-old male with history of coronary artery disease, admitted to the hospital with chest pain. 1. Chest pain. Patient evaluated by Cardiology. Patient had heart cath done today, result is still pending. Medication adjusted as mentioned above. Patient can go home today if okay by cardiology. 2. Acute renal failure. Patient with history of chronic kidney disease, has been followed by keycase assembler. Recommended patient to follow up as outpatient with Nephrology. 3. Diabetes mellitus. Resume home medication. 4. Hypertension. Medication adjusted as mentioned above. 5. All other medical problem. Medication to be continued as mentioned. Patient is medically stable. Heart cath done. Patient can go home when okay by Cardiology. Plan discussed with patient, with . Chart was reviewed. TIME SPENT: 40 minutes. Enrique Khan M.D. Dict: 02/01/2019 12:15:46 Trans: 02/01/2019 12:45:00 CC1: Enrique Khan M.D. documented in this encounter Plan of Treatment Not on file documented as of this encounter Visit Diagnoses Not on filedocumented in this encounter
--- OUTSIDE RECORDS SUMMARY | 2024-12-22 14:39 | XMS_ITS | Encounter Summary ---
Author Organization [employer] [facility] [facility] Address [address] [place] [address] Care Team Providers Care Bore Miner Operator Name Role Phone Unavailable Primary Care Provider Unavailabl e Encounter Details Date Type Department Care Team (Late st Contact Info) Description 01/31/2019 Transcribed Document [facility] [place] [facility] [place] [address] ProviderEmilia MD [address] [place] [address] Social History Tobacco Use Types Packs/Day Years Used Date Smoking Tobacco: Never Assessed Sex and Gender Information Value Date Recorded Sex Assigned at Not on file Legal Sex Male 5:19 PM CDT Gender Identity Not on file Sexual Orientation Not on file documented as of this encounter Miscellaneous Notes * Cerner Conversion Note - Emilia ProviderMD - 01/31/2019 7:30 AM CDT Patient: JOHNATHAN COURTNEY Age: 63 years Sex: Male : 1955 Associated Diagnoses: None Author: KASSANDRA DAVIS MD Subjective Chief complaint. anxious better not in distress awake Health Status Allergies: Allergic Reactions (Selected) Severity [...] = 1 Tab, Oral, Daily , Medications (19) Active Scheduled: (11) amLODIPine 5 mg tab [...] 40 mg 1 Tab, Oral, Daily Continuous: (0) PRN: (8) acetaminophen 325 mg tab 650 [...] History of obstructive sleep apnea / IMO [id number] / Confirmed, Active Problems (6) CKD (chronic kidney disease) Diabetes mellitus GERD (gastroesophageal reflux disease) History of obstructive sleep apnea [place] (hard of [place]) Hypertension Objective VS/Measurements Vitals Signs (last 24 hrs) Last Charted Minimum Maximum Temp 97.5 (JAN 31 06:24) 97.5 (JAN 31 06:24) 97.5 (JAN 30 11:00) Apical HR 70 (JAN 31 06:42) 67 (JAN 30 21:18) 70 (JAN 31 06:42) Mon HR 67 (JAN 31 06:24) 60 (JAN 30 15:49) 67 (JAN 31 06:24) Resp Rate 18 (JAN 31 06:24) 16 (JAN 30 11:00) 18 (JAN 31 06:24) SBP H 167 (JAN 31 06:24) 126 (JAN 30 18:00) H 167 (JAN 31 06:24) DBP 90 (JAN 31 06:24) 63 (JAN 30 18:00) 90 (JAN 31 06:24) MAP 107 (JAN 31:24) 79 (JAN 30 18:00) 107 (JAN 31 06:24) SpO2 95 (JAN 31 06:24) 95 (JAN 31 06:24) 97 (JAN 30 18:00) General: Alert and [...] & affect, Normal judgment. Results Review JAN 31 04:16 137 104 H 31 / H 336 4.4 26 H 1.90 \ JAN 31 04:16 \ L 12.7 / 6.0 L 158 / 40.4 \ JAN 31 04:16 137 104 H 31 / H 336 4.4 26 H 1.90 JAN 31 04:16 \ L 12.7 / 6.0 L 158 / 40.4 \ Impression and Plan 1. Chest pain. [...] prophylaxis, heparin. Plan nephrology consult heart cath in AM cardiology following labs in am time spent 25 min documented in this encounter Plan of Treatment Not on file documented as of this encounter Visit Diagnoses Not on filedocumented in this encounter
--- OUTSIDE RECORDS SUMMARY | 2024-12-22 14:39 | XMS_ITS | Encounter Summary ---
Author Organization [facility] In iatives Address [address] [place] [address] Care Team Providers Care Sock Drier Name Role Phone Unavailable Primary Care Provider Unavailabl e Encounter Details Date Type Department Care Team (Late st Contact Info) Description 02/01/2019 Transcribed Document [facility] [facility] [place] [facility] [place] [address] ProviderEmilia MD [address] [place] [address] Social History Tobacco Use Types Packs/Day Years Used Date Smoking Tobacco: Never Assessed Sex and Gender Information Value Date Recorded Sex Assigned at Not on file Legal Sex Male 5:19 PM CDT Gender Identity Not on file Sexual Orientation Not on file documented as of this encounter Miscellaneous Notes * Cerner Conversion Note - Emilia ProviderMD - 02/01/2019 11:47 AM CDT Patient: JOHNATHAN COURTNEY Age: 63 [...] = 1 Tab, Oral, Daily , Medications (28) Active Scheduled: (16) #NaCl 0.9% *FLUSH* inj [...] BID insulin glargine 1 unit/0.01 mL inj 15 Units 0.15 mL, SubCutaneous, BID insulin lispro 1 unit/0.01 mL inj 76 kg - 100 kg scale, SubCutaneous, AC and at Bedtime isosorbide MONOnitrate ER 60 mg tab 60 mg 1 Tab, Oral, Daily levothyroxine 75 mcg tab 75 mcg 1 Tab, Oral, Daily rosuvastatin 40 mg tab 40 mg 1 Tab, Oral, Daily Continuous: (2) NaCl 0.45% 1,000 mL 1,000 mL, IntraVENous, 75 mL/Hr NaCl 0.9% 500 mL 500 mL, IntraVENous [...] History of obstructive sleep apnea / IMO [id number] / Confirmed, Active Problems (6) CKD (chronic kidney disease) Diabetes mellitus GERD (gastroesophageal reflux disease) History of obstructive sleep apnea ABSENTEE-SHAWNEE (hard of hearing) Hypertension Objective VS/Measurements Vitals Signs (last 24 hrs) Last Charted Minimum Maximum Temp 98.4 (FEB 01 10:34) 97.6 (FEB 01 06:22) 98 (JAN 31 15:57) Apical HR 79 (FEB 01 07:45) 62 (JAN 31 21:31) 79 (FEB 01 07:45) Mon HR 69 (FEB 01 11:15) 62 (JAN 31 15:57) 72 (FEB 01 03:16) Resp Rate 16 (FEB 01 11:15) 16 (FEB 01 06:22) 20 (JAN 31 15:57) SBP H 157 (FEB 01 11:15) H 146 (FEB 01 11:00) H 183 (JAN 31 18:03) DBP 82 (FEB 01 11:15) 71 (FEB 01 03:16) H 96 (JAN 31 15:57) MAP 99 (FEB 01 11:15) 95 (FEB 01 11:00) 119 (JAN 31 15:57) SpO2 98 (FEB 01 11:15) 95 (JAN 31 18:03) 99 (FEB 01 [...] & affect, Normal judgment. Results Review FEB 01 05:17 137 105 H 28 / H 241 4.4 27 H 1.60 \ FEB 01 05:17 \ L 13.3 / 5.9 163 / 41.6 \ FEB 01 05:17 137 105 H 28 / H 241 4.4 27 H 1.60 \ FEB 01 05:17 \ L 13.3 / 5.9 163 / 41.6 \ Impression and Plan 1. Chest pain. [...] Deep venous thrombosis prophylaxis, heparin. Plan nephrology following heart cath done cardiology following labs in am home in am if ok by cardiology and nephrology time spent 38 min documented in this encounter Plan of Treatment Not on file documented as of this encounter Visit Diagnoses Not on filedocumented in this encounter
--- OUTSIDE RECORDS SUMMARY | 2024-12-22 14:39 | XMS_ITS | Encounter Summary ---
Author Organization [email or web address]atives Address [address] [place] [address] Care Team Providers Care Test Lab Technician Name Role Phone Unavailable Primary Care Provider Unavailabl e Encounter Details Date Type Department Care Team (Late st Contact Info) Description 02/02/2019 Transcribed Document [facility] [place] [facility] [place] [address] ProviderEmilia MD [address] [place], [place] [id number] Social History Tobacco Use Types Packs/Day Years Used Date Smoking Tobacco: Never Assessed Sex and Gender Information Value Date Recorded Sex Assigned at Not on file Legal Sex Male 5:19 PM CDT Gender Identity Not on file Sexual Orientation Not on file documented as of this encounter Miscellaneous Notes * Cerner Conversion Note - Emilia ProviderMD - 02/02/2019 12:41 PM CDT Patient Education Materials Follows: Coronary Artery Disease, Male Coronary artery disease (CAD) is a condition in which the arteries that lead to the heart (coronary arteries) become narrow or blocked. The narrowing or blockage can lead to decreased blood flow to the heart. Prolonged reduced blood flow can cause a heart attack (myocardial infarction or [place]). This condition may also be called coronary [...] these instructions at home: Medicines ??? Take nazo-odl-lujomiu and prescription medicines only as told by [...] of beer, 5 ounces of wine, or 1? ounces of hard liquor. General instructions ??? [...] 01/18/2015 Document Revised: 06/13/2017 Document Reviewed: 06/13/2017 [employer] Patient Education ? 2019 [employer] Endocrinology Carbohydrate Counting for Diabetes Mellitus, Adult Carbohydrate [...] different for every person. A diet and lan specialist (registered dietitian) can help you make a [...] of carbohydrate per serving. To use the ?Nutrition Facts : ??? Decide how many servings [...] g of carbohydrates: ? hamburger bun or ? Ukrainian muffin. ? oz (15 mL) syrup. ? [...] 4 oz (113 g) mashed potatoes or ? of a large baked potato. ??? 4 oz (113 g) canned or frozen fruit. ??? 4 oz (120 mL) fruit juice. ??? 4?6 crackers. ??? 6 chicken nuggets. ??? 6 [...] foods that contain carbohydrates: ??? Rice. ??? [place]. ??? Milk. ??? Strawberries. 2. Calculate how [...] manage your diabetes. ??? A diet and lan specialist (registered dietitian) can help you make a meal plan and calculate how many carbohydrates you should have at each meal and snack. This information is not intended to replace advice given to you by your health care provider. Make sure you discuss any questions you have with your health care provider. Document Released: 2006 Document Revised: 12/31/2017 Document Reviewed: 12/04/2016 [employer] Patient Education ? 2019 [employer] Diabetes Mellitus and Skin Care Diabetes [...] (acanthosis nigricans). This typically affects people of -[place]er and [place]er- descent. ??? Red, raised, scar-like tissue that may itch, feel painful, or develop into a wound (necrobiosis lipoidica). ??? Blisters on feet, toes, hands, or fingers. ??? Thickened, wax-like areas of skin that usually occur on the hands, forehead, or toes (digital sclerosis). ??? Brown or red ring-shaped or fjlo-fytb-yqpyhb patches of skin on the ears or [...] as cigarettes and e-cigarettes. Smoking affects the body?s ability to heal. If you need help [...] itching: ? Limit baths and showers to 5?10 minutes. ? Bathe with lukewarm water instead [...] 12/03/2016 Document Revised: 01/01/2018 Document Reviewed: 12/03/2016 [employer] Patient Education ? 2019 [employer] Diabetes Mellitus and Nutrition, Adult When [...] that you work with a diet and lan specialist (dietitian) to make a meal plan that [...] of beer, 5 oz of wine, or 1? oz of hard liquor. ??? Do not [...] can eat at each meal. ??? Eat 4?6 ounces (oz) of lean protein each day, such as lean meat, chicken, fish, eggs, or tofu. One oz of lean protein is equal to: ? 1 oz of meat, chicken, or fish. ? 1 egg. ? ? cup of tofu. ??? Eat some foods [...] provider. ??? Work with a counselor or cytotechnologist/histotechnologist to identify strategies to manage stress and any emotional and social challenges. Questions to ask a health care provider ??? Do I need to meet with a cytotechnologist/histotechnologist? Do I need to meet with a dietitian? What number can I call if I have questions? When are the best times to check my blood glucose? Where to find more information: ??? [place] Diabetes Association: diabetes.org ??? Academy of Nutrition and Dietetics: www.eatright.org ??? National [place] of Diabetes and Digestive and Kidney Diseases (NIH): www.niddk.nih.gov Summary ??? A healthy meal plan will help you control your blood glucose and maintain a healthy lifestyle. ??? Working with a diet and lan specialist (dietitian) can help you make a meal [...] 03/20/2006 Document Revised: 01/21/2018 Document Reviewed: 07/28/2017 [employer] Patient Education ? 2019 [employer]. Nephrology Diabetic Nephropathy Diabetic nephropathy is kidney disease [...] parent to child (inherited). ??? Are of -[place]er, , , , or descent. What are [...] by your health care provider. ??? Take tjnh-jik-shrsves and prescription medicines only as told by [...] 07/12/2008 Document Revised: 02/10/2018 Document Reviewed: 05/21/2017 [employer] Patient Education ? 2019 [employer]. Chronic Kidney Disease, Adult Chronic kidney disease [...] these instructions at home: Medicines ??? Take wpzm-jpd-undqnur and prescription medicines only as told by [...] 09/17/2010 Document Revised: 07/28/2017 Document Reviewed: 07/28/2017 [employer] Patient Education ? 2019 [employer] Hypertension Hypertension is another name for high [...] of beer, 5 oz of wine, or 1? oz of hard liquor. Lifestyle ??? Work [...] doctor. This is important. Medicines ??? Take fard-eol-kzcywkz and prescription medicines only as told by [...] 12/09/2008 Document Revised: 05/21/2017 Document Reviewed: 05/21/2017 Elsevier Interactive Patient Education ? 2019 [employer] documented in this encounter Plan of Treatment Not on file documented as of this encounter Visit Diagnoses Not on filedocumented in this encounter
--- OUTSIDE RECORDS SUMMARY | 2024-12-22 14:39 | XMS_ITS | Encounter Summary ---
Author Organization [facility] In iatives Address [address] [place] [address] Care Team Providers Care Supervisor Filtration Name Role Phone Unavailable Primary Care Provider Unavailabl e Encounter Details Date Type Department Care Team (Late st Contact Info) Description 01/31/2019 Transcribed Document [facility] [place] Family Medicine [address] [place] [address] ProviderEmilia MD [address] [place] [address] Social History Tobacco Use Types Packs/Day Years Used Date Smoking Tobacco: Never Assessed Sex and Gender Information Value Date Recorded Sex Assigned at Not on file Legal Sex Male 5:19 PM CDT Gender Identity Not on file Sexual Orientation Not on file documented as of this encounter Miscellaneous Notes * Cerner Conversion Note - Historical ProviderMD - 01/31/2019 5:00 AM CDT Chart Check - Review Order Profile Entered On: 01/31/2019 5:29 EDT Performed On: 01/31/2019 5:00 EDT by Ana Villeda Rn Chart Check Powerplans Initiated/Discontinued as Appropriate : Yes All Active Orders Reviewed : Yes Ana Villeda Rn - 01/31/2019 5:29 EDT documented in this encounter Plan of Treatment Not on file documented as of this encounter Visit Diagnoses Not on filedocumented in this encounter
--- NOTE | 2024-12-22 15:00 | CA_ITS ---
FINAL REPORT TECHNIQUE: Axial and color Doppler waveform evaluation of the left and right upper extremity was performed. Spectral analysis was performed. CLINICAL HISTORY: Hx -upper extremity arterial thrombus, CAD, Stroke, Hx-Right CEA FINDINGS: Right upper extremity Velocities cm/sec: SCA: 106 AxA : 77 Bra P: 130 Bra M: 131 BrA Dist: 134 Rad P: 111 Rad M: 133 Rad D: 95 Ul: 107 Waveforms are biphasic and triphasic. Left upper extremity Velocities cm/sec: SCA: 156 AxA : 105 Bra P: 167 Bra M: 140 BrA Dist: 144 Rad P: 90 Rad M: 94 Rad D: 177 Ul: 110 Waveforms are biphasic and triphasic. IMPRESSION: No significant peripheral vascular disease. Reviewed, Interpreted and Dictated by Gerry Maldonado MD Transcribed by Delilah Kelly Authenticated and [facility]
--- NOTE | 2024-12-22 15:30 | US_ITS ---
FINAL REPORT CLINICAL HISTORY: N28.89 - Other specified disorders of kidney and ureter COMPARISON: CT abdomen and pelvis 10/20/2024 FINDINGS: RENAL ULTRASOUND Ultrasound images of the kidneys were obtained. The right kidney measures 12.0 cm in length. There is no hydronephrosis. There is a dominant hypoechoic area in the right kidney measuring 9.1 x 6.4 cm. There is a 2nd smaller hypoechoic area measuring 3.2 x 2.4 cm. These lesions are indeterminate. Larger focus was present on previous CT scan. The smaller lesion was not clearly evident on CT. The left kidney measures 12.1 cm in length. It is normal echogenicity. There is no hydronephrosis. IMPRESSION: Two masses in the right kidney. Larger seen on previous CT scan, but smaller not clearly visualized. Recommend renal mass protocol to better evaluate and directly compared to prior. Reviewed, Interpreted and Dictated by Gerry Maldonado MD Transcribed by Salome Stokes Authenticated and [facility]
== END 2024-12-22 23:59 | disposition home or self-care (01) ==
LOC: RT 14:33
PROVIDERS: PCP Nurse Practitioner Family; Visit Provider Nurse Practitioner Family
DX: N28.89 Other specified disorders of kidney and ureter (principal); I74.2 Embolism and thrombosis of arteries of the upper extremities; I25.10 Atherosclerotic heart disease of native coronary artery without angina pectoris; I63.9 Cerebral infarction, unspecified
CPT/HCPCS: 76770; 93930

== ENCOUNTER 2024-12-24 12:32 | Outpatient (RCR) | payer MEDICARE, SELFPAY ==
--- NOTE | 2024-12-24 15:53 | HMH.PTOPEV ---
PT Outpatient Evaluation Rehab PT Outpatient Evaluation Start: 12/24/24 13:02 Freq: Status: Active Protocol: Document 12/24/24 13:02 LIANNA (Rec: 12/24/24 14:12 LIANNA [id number]) E-signed By Joanna Nolasco, PT Outpatient Therapy Subjective History Subjective History This is an initial PT evaluation for 69 y/o male, Johnathan Parham who presents to PT with referral for help with transfers, unsteadiness on feet . Pt's chief complaint is BLE weakness (L>R) and impaired balance. In April of 2023 pt had a stroke, heart attack, and partial lung collapse. Pt went to [facility] rehabilitation and 2 SNF since 2022. Pt primarily uses a power chair to get around the house but is ambulatory with short household distances using a platform RW. Pt uses a platform walker d/t absent R hand roasterman strength . Pt reports he can ambulate short distances. Pt has L drop foot. Pt reports he had HH PT which ended ~4 weeks ago. Pt denies any falls in past 3 months. Pt lives in a single-story house with 0 JARAD through back door. PMH: TIA, DANY, neuropathy, CHF New diagnosis of No cancer in past 12 months? Chief Complaint Gives out/Unstable Hip/Knee Eval Gait Observation General Gait Pattern Wide Based Gait Observation Assistive Device Assistive Devices Rolling / Wheeled Walker MMT right Hip Flexion Strength 3+ Fair+ Grade Hip Abduction 3+ Fair+ Strength Grade Hip Adduction 3+ Fair+ Strength Grade Hip Extension 4- Good- Strength Grade Knee Extension 4- Good- Strength Grade Knee Flexion 4- Good- Strength Grade left Hip Flexion Strength 3 Fair Grade Hip Abduction 3+ Fair+ Strength Grade Hip Adduction 3+ Fair+ Strength Grade Hip Extension 4- Good- Strength Grade Knee Extension 3+ Fair+ Strength Grade Knee Flexion 3+ Fair+ Strength Grade Balance Eval Timed Up and Go Test 1. Is the Timed Up yes and Go test result > or = to 12 seconds? Rhomberg Feet Together/Eyes pass open/Stable Surface Feet Together/Eyes fail Closed/Stable Surface Feet Together/Eyes fail open/Unstable Surface Feet Together/Eyes fail Closed/Unstable Surface Dynamic Gait Index Test Protocol Gait Level Surface Mild Impairment Query Text: Instructions: Walk at your normal speed from here to the next león (20'). Grading: León the lowest category that applies. Change in Gait Speed Moderate Impairment Query Text: Instructions: Begin walking at your normal pace (for 5') , when I tell you go , walk as fast as you can (for 5'). When I tell you slow , walk as slowly as you can ( for 5'). Grading: León the lowest category that applies. Gait with Horizontal Mild Impairment Head Turns Query Text: Instructions: Begin walking at your normal pace. When I tell you to look right , keep walking straight, but turn you head to the right. Keep looking to the right unit I tell you look left , then keep walking straight and turn your head to the left. Keep your head to the left until I tell you look straight , then keep walking straight, but return you head to the center. Grading: León the lowest category that applies. Gait with Vertical Moderate Impairment Head Turns Query Text: Instructions: Begin walking at your normal pace. When I tell you to look up , keep walking staight, but tip your head up. Keep looking up until I tell you to look down , then keep walking straight and tip your head down. Keep your head down until I tell you look straight , then keep walking straight, but return your head to the center. Grading: León the lowest category that applies. Gait and Pivot Turn Moderate Impairment Query Text: Instructions: Begin walking at your normal pace. When I tell you turn and stop , turn as quickly as you can to face the opposite direction and stop. Grading: León the lowest category that applies. Step Over Obstacle Moderate Impairment Query Text: Instructions: Begin walking at your normal speed. When you come to the shoebox, step over it, not around it and keep walking. Grading: León the lowest category that applies. Step Around Mild Impairment Obstacles Query Text: Instructions: Begin walking at normal speed. When you come to the first cone (about 6' away) , walk around the right side of it. When you come to the second cone (6' past first cone), walk around it to the left. Grading: León the lowest category that applies. Steps Severe Impairment Query Text: Instructions: Walk up these stairs as you would at home. At the top, turn around and walk down . Grading: León the lowest category that applies. Scoring Dynamic Gait Index 10 Score Miscellaneous Dx PT Eval Objective Objective TU seconds with RW. 5x STS: 28 with UE use DGI: 10 Miscellaneous Goals Short Term Goals In 4 weeks, pt will: 1) Verbalize IND with HEP 2) Report he feels at least 40% improved since IE 3) Improve BLE strength by 1/5 grade 4) Improve DGI by 2 points using LRAD to improve safety with mobility. 5) Perform TUG test in 25 seconds to improve ambulation 6) Pass Romberg uneven surface EO. Collar Shaper Operator Goals In 8 weeks, pt will: 1) Verbalize adherence to ambulating exercise at home. 2) Reports he feels at least 80% improved since IE 3) Improve BLE strength to at least 4-4+/5 to improve functional strength 4) Improve DGI to 15 points using LRAD to improve safety with mobility 5) Perform TUG test in 20 seconds to improve ambulation safety 6) Pass all Romberg sections to improve static standing balance 7) Ambulate 20' over uneven surface with LRAD without LOB 3/4 trials 8) Improve 5xSTS to 24 seconds to improve functional endurance and strength Outpatient Therapy Assessment Impairments Problems/ Impaired Strength,Impaired Endurance,Impaired Transfers Impairmments ,Impaired Gait Pattern,Impaired Walking,Impaired Standing,Impaired Lifting,Impaired Stair Climbing, Impaired Incline Stepping,Impaired Stepping on Uneven Surface,Impaired Recreational Activities,Impaired Balance,Impaired DGI Score,Impaired TUG Time Prognosis Rehab Potential Good Comment Pt presents with BLE weakness and RUE weakness. Pt with impaired gait and balance. Pt would benefit from skilled OP PT to address gait, balance, and strength to improve overall safety with mobility and achieve pt's goals. Clinical Impression Consistent with Yes Diagnosis Outpatient Therapy Plan of Care Treatment Plan May Include Therapeutic Exercise Yes Including Home Exercise Program Manual Therapy Yes Techniques Neuromuscular Re- Yes education Therapeutic Yes Activities to Return to Previous Functional/Work Level Gait Training Yes ADL/Self Care Yes Education Orthotics/Bracing/ Yes Splinting Eval/Re-Eval Yes Frequency Times per week 2-3 times Duration Number of Weeks 8-10 weeks Addendums This patient is a No candidate for social or vocational rehab ? Patient/Guardian Yes verbally acknowledges understanding of treatment program and consents to further treatment? Patient/Guardian Yes verbally acknowledges understanding of diagnosis, prognosis and goals for treatment? Eval Complexity PT Charges [id number] - Moderate Complexity Shoulder/Elbow Eval Shoulder Objective Measurements Elbow Objective Measurements PHYSICIAN CERTIFICATION: I certify the specified therapy services for Johnathan Parham are required, authorized, and reviewed every 30 days.
== END 2024-12-24 23:59 | disposition home or self-care (01) ==
LOC: PT 12:32
PROVIDERS: PCP Nurse Practitioner Family; Visit Provider Family Medicine
DX: R26.81 Unsteadiness on feet (principal)
CPT/HCPCS: 97162

== ENCOUNTER 2025-01-03 10:54 | Outpatient (CLI) | payer MEDICARE, SELFPAY ==
[2025-01-03 17:39] LABS: Basophils % 0.5 % (0.1-2.0); Eosinophils # 0.1 Kmm3 (0.0-0.4); Hematocrit 34.4 % (42.0-52.0); Hemoglobin 10.6 g/dL (14.1-18.0); Immature Granulocytes # 0.02 10^3uL; Immature Granulocytes % 0.3 %; Lymphocytes # 1.1 K/mm3 (0.7-4.5); Mean Corpuscular HGB Conc 30.8 g/dL (31.8-35.4); Mean Corpuscular Hemoglobin 28.4 pg (27.0-31.2); Mean Corpuscular Volume 92.2 fl (80-94); Mean Platelet Volume 10.8 fl (7.4-10.4); Monocytes # 0.4 K/mm3 (0.1-1.0); Monocytes % 6.5 % (1.7-9.3); Neutrophils # 4.2 K/mm3 (1.8-7.8); Neutrophils % 71.7 % (37.0-80.0); Nucleated Red Blood Cells # 0 10^3/uL; Nucleated Red Blood Cells % 0 %; Platelet Count 232 K/mm3 (142-424); Red Blood Count 3.73 M/mm3 (4.60-6.20); Red Cell Distribution Width 16.9 % (11.5-17.5); Red Cell Distribution Width-SD 57.7 fL; White Blood Count 5.9 K/mm3 (4.8-10.8)
[2025-01-03 17:53] LABS: Chloride 102 mmol/L (98-107)
[2025-01-03 17:54] LABS: Albumin Level 3.5 g/dl (3.5-5.0); Potassium 4.5 mmoL/L (3.5-5.1); Sodium 140 mmol/L (136-145)
[2025-01-03 17:57] LABS: Alanine Aminotransferase 14 U/L (12-78); Albumin/Globulin Ratio 1.1 (1.1-1.8); Alkaline Phosphatase 107 U/L (38-126); Anion Gap 11.5 mEq/L (5-15); Aspartate Amino Transferase 23 U/L (17-59); Bilirubin,Total 0.9 mg/dl (0.2-1.3); Blood Urea Nitrogen 19 mg/dl (9-20); Calcium 8.8 mg/dl (8.4-10.2); Carbon Dioxide 31 mmol/L (22.0-30.0); Cholesterol 96 mg/dl (140-200); Estimated Glomerular Filt Rate 51 ml/min (>60); GFR (African American) 61 ML/MIN (>60); Globulin 3.1 g/dL (1.3-3.2); Glucose 174 mg/dl (74-100); Iron 46 ug/dL (49-181); Total Protein,Serum 6.6 g/dl (6.3-8.2); Triglycerides 155 mg/dl (30-150); VLDL Cholesterol 31 mg/dL (0-40)
[2025-01-03 17:58] LABS: Chol/HDL Ratio 4.4 (1-3.5); HDL Cholesterol 22 mg/dl (40-60); Microalbumin/Creatinine Ratio 78.5
[2025-01-03 18:02] LABS: Creatinine,Urine Random 57 mg/dL (Not Estab.)
[2025-01-03 18:07] LABS: Total Iron Binding Capacity 182 ug/dL (261-462)
[2025-01-03 18:08] LABS: Direct LDL Cholesterol 41.78 mg/dL (100-129)
[2025-01-03 18:29] LABS: Hemoglobin A1C 5.5 % (4.0-6.0)
[2025-01-03 18:33] LABS: Ferritin 343 ng/ml (17.9-464)
--- OUTSIDE RECORDS SUMMARY | 2025-01-05 10:58 | XMS_ITS | Encounter Summary ---
Author Organization [email or web address] ([place], [place], [place], [place]) Address [address] [place] [address] Care Team Providers Care Stove Refinisher Name Role Phone Unavailable Primary Care Provider Unavailabl e Encounter Details Date Type Department Care Team (Late st Contact Info) Description 01/30/2019 Transcribed Document [facility] [place] Family Medicine [facility] [place] [address] ProviderEmilia MD [address] [place], [place] [id number] Social History Tobacco Use Types Packs/Day Years [...] Performed On: 01/30/2019 5:00 EDT by Ana Villeda, Rn Chart Check Powerplans Initiated/Discontinued as Appropriate : Yes All Active Orders Reviewed : Yes Ana Villeda Rn - 01/30/2019 3:07 EDT documented in this encounter Plan of Treatment Not on file documented as of this encounter Visit Diagnoses Not on filedocumented in this encounter
--- OUTSIDE RECORDS SUMMARY | 2025-01-05 10:58 | XMS_ITS | Encounter Summary ---
Author Organization [employer] ([place], [place], [place], [place]) Address [address] [place] [address] Care Team Providers Care Landfill Gas Technician Name Role Phone Unavailable Primary Care Provider Unavailabl e Encounter Details Date Type Department Care Team (Late st Contact Info) Description 05/18/2019 Transcribed Document [facility] [place] Family Medicine [facility] [place] [address] ProviderEmilia MD [address] [place], [place] [id number] Social History Tobacco Use Types Packs/Day Years Used Date Smoking Tobacco: Never Assessed Sex and Gender Information Value Date Recorded Sex Assigned at Not on file Legal Sex Male 5:19 PM CDT Gender Identity Not on file Sexual Orientation Not on file documented as of this encounter Miscellaneous Notes * Cerner Conversion Note - Historical ProviderMD - 05/18/2019 6:13 PM SIGNAL INSPECTOR documented in this encounter Plan of Treatment Not on file documented as of this encounter Visit Diagnoses Not on filedocumented in this encounter
--- OUTSIDE RECORDS SUMMARY | 2025-01-05 10:58 | XMS_ITS | Encounter Summary ---
Author Organization Healthcare Address [address] [place] [address] Care Team Providers Care Outsole Handler Name Role Phone Bridgette Szymanski DO Primary Care Provider Elaina Carvalho Primary Care Provider Addison Rizzo DO Primary Care Provider Pcp, No Primary Care Provider Unavailabl e Addison Rizzo DO Unavailable [phone] Brooklyn Redmond LPN Unavailable Unavailable Encounter Details Date Type Department Care Team (Late st Contact Info) Description 05/06/2023 Lab Requisition [facility] [address] [place] [address] Estefania Keller MD [address] [place] [address] Unspecified general medical examination Social [...] place to sleep or slept in a retirement (including now)? No 05/08/2023 Utilities Answer Date Recorded In the past 12 months has th e [employer], gas, oil, or water [employer] threatened to shut off services in your [...] Name Priority Date/Time Associated Diagnosis Comments SOURCE, [facility] HCV QUANT PCR Routine 05/06/2023 11:10 AM EDT Unspecified general medical examination HC 418 HIV-1 AG W/COMB 1&2 AB Routine 05/06/2023 11:10 AM EDT Unspecified general medical examination [facility], [facility] HEPATITIS B S AG Routine 05/06/2023 11:10 AM EDT Unspecified general medical examination documented in this encounter Results * Source, [facility] HCV Quant PCR (05/06/2023 11:10 AM EDT) Hepatitis C Virus (HCV) Quantitative Interpretation Not Detected Not Detected . 05/08/2023 5:06 AM EDT [facility] Hepatitis C Virus (HCV) Quantitative Viral Load Log Result <1.08 <1.08 log10 IU/mL 05/08/2023 5:06 AM EDT [facility] Hepatitis C Virus (HCV) Quantitative IU/mL Result <12 <12 IU/mL 05/08/2023 5:06 AM EDT [facility] Blood Venous blood specimen / Unknown [...] ORDERABLES Final Re sult Performing Organization Address [facility] de Phone Number [facility] [address] [place] [address] * Source, [facility] Hepatitis B S AG (05/06/2023 11:10 AM EDT) Pathologist [facility] Hepatitis B Surf Antigen Negative Negative 05/06/2023 12:44 PM EDT [facility] Blood Venous blood specimen / Unknown 05/06/2023 11:10 AM EDT 05/06/2023 11:38 AM EDT Estefania Keller MD LAB BLOOD ORDERABLES Final Re sult Performing Organization Address [facility] Phone Number [facility] [address] [place] [address] * Source, [facility] HIV AB/AG w/Reflex to HIV1/2 Antibody Differentiation (05/06/2023 11:10 AM EDT) [facility] HIV 1 & 2 Antibody/Anti gen Screen Non Reactive Non Reactive 05/06/2023 12:44 PM EDT [facility] Blood Venous blood specimen / Unknown 05/06/2023 11:10 AM EDT 05/06/2023 11:38 AM EDT Estefania Keller MD LAB BLOOD ORDERABLES Final Re sult Performing Organization Address [facility] de Phone Number [facility] [address] [place] [address] documented in this encounter Visit Diagnoses Diagnosis [...] documented as of this encounter Care Teams Outsole Handler Relationship Specialty Start Date End Date Bridgette Szymanski DO [address] [place] [address] PCP - General 11/17/20 05/07/23 Elaina Carvalho PA [address] [place] [address] PCP - General 05/08/23 04/25/24 Addison Rizzo DO [address] [place] [address] PCP - General 04/26/24 06/23/24 P[place], [place] [address] PCP - General Family Medicine 06/24/24 Addison Rizzo DO [address] [place] [address] 06/24/24 Brooklyn Redmond LPN VALUE[employer]ED [place] [address] TCM Nurse 06/23/24 07/23/24 documented as of this encounter
--- OUTSIDE RECORDS SUMMARY | 2025-01-05 10:58 | XMS_ITS | Encounter Summary ---
Author Organization [facility] Address [address] [place] [address] Care Team Providers Care Cook Vegetable Name Role Phone Addison Rizzo DO Primary Care Provider [phone] Pcp, No Primary Care Provider Unavailabl e Addison Rizzo DO Unavailable [phone] Brooklyn Redmond LPN Unavailable Unavailable Encounter Details Date Type Department Care Team (Late st Contact Info) Description 06/12/2024 Lab Requisition [facility] [address] [place] [address] Julien Matthews [address] [place] [address] Encounter for general adult medical [...] place to sleep or slept in a fci (including now)? No 04/26/2024 PHQ-9 Answer Date [...] any time in the past 12 m [facility], were you homeless or living in a fci (including now)? No 06/14/2024 CAGE ASSESSMENT Answer [...] drink first t alyx in the morning (EYE-SAND DRIER) to steady your nerves or to get rid of a hangover? 0 09/05/2023 CAGE Questionnaire Score 0 024 Utilities Answer Date Recorded In the past 12 months has [employer], [employer], oil, or water [employer] threatened to shut off services in your home? No 06/14/2024 Sex and Gender Information Value Date Recorded Sex Assigned at Not on file Legal Sex Male 6:39 PM EDT Gender Identity Not on file Sexual Orientation Not on file documented as of this encounter Functional Status * Calculated C-SSRS Risk Score (Lifetime/Recent) Answer Date of Assessment Author No Risk Indicated 06/15/2024 9:00 PM Hectro Cardoso RN * Question Answer Date of [...] LAB HEMATOLOGY METHOD 06/14/2024 5:35 PM EST [facility] Specimen Source, Body Fluid Synovial Fluid (type in source) LAB HEMATOLOGY METHOD 06/14/2024 5:35 PM EST [facility] Clinical Diagnosis, Body Fluid Pyogenic arthritis of left knee joint LAB HEMATOLOGY METHOD 06/14/2024 5:35 PM EST [facility] Interpretation , Body Fluid Acute inflammatory cells No pathogenic organisms seen Correlation with microbiology studies recommended Moderate blood A resident was involved in the service. I attest I examined the relevant preparations for the specimens and confirmed the diagnosis or interpretation. 06/14/2024 5:35 PM EST [facility] Pathologist Signature, Body Fluid 06/14/2024 5:35 PM EST [facility] Comment:Reviewed by: Salome thakur MD LAB CP ASR DISCLAIMER Yes 06/14/2024 5:35 PM EST [facility] Joint Fluid Synovial structure / Unknown 06/12/2024 5:00 PM EST 06/13/2024 5:02 AM EST Julien Matthews LAB BODY FLUIDS AND STOOLS ORDER VANESSA Final Result [facility] [address] [place] [address] * (ABNORMAL) Body Fluid Cell Count w/ Diff (06/12/2024 5:00 PM EST) Color, Body fluid Yellow LAB HEMATOLOGY METHOD 06/13/2024 8:26 AM EST [facility] Appearance, Body fluid Cloudy(A) LAB HEMATOLOGY METHOD 06/13/2024 8:26 AM EST [facility] Volume, Body fluid 4.0 cc LAB HEMATOLOGY METHOD 06/13/2024 8:26 AM EST [facility] Fluid Container Specimen received in miscellaneous container LAB HEMATOLOGY METHOD 06/13/2024 8:26 AM EST [facility] Red Blood Cell Count, Body fluid 10,000 uL LAB HEMATOLOGY METHOD 06/13/2024 8:26 AM EST [facility] Total Nucleated Cell Count, Body fluid >100,000 uL LAB HEMATOLOGY METHOD 06/13/2024 8:26 AM [facility] Neutrophils %, Body fluid 90 % LAB HEMATOLOGY METHOD 06/13/2024 8:26 AM [facility] Lymphocytes %, Body fluid 3 % LAB HEMATOLOGY METHOD 06/13/2024 8:26 AM [facility] Monocytes/Macr ophages %, Body fluid 7 % LAB HEMATOLOGY METHOD 06/13/2024 8:26 AM EST [facility] Eosinophils %, Body fluid 0 % LAB HEMATOLOGY METHOD 06/13/2024 8:26 AM [facility] Lining/Mesothe lial Cells %, Body fluid 0 % LAB HEMATOLOGY METHOD 06/13/2024 8:26 AM [facility] Neutrophils Absolute (PMN), Body fluid >90,000 uL LAB HEMATOLOGY METHOD 06/13/2024 8:26 AM EST [facility] Lymphocytes Absolute, Body fluid >3,000 uL LAB HEMATOLOGY METHOD 06/13/2024 8:26 AM [facility] Monocytes/Macr ophages Absolute, Body fluid >7,000 uL LAB HEMATOLOGY METHOD 06/13/2024 8:26 AM [facility] Eosinophils Absolute, Body fluid 0 uL LAB HEMATOLOGY METHOD 06/13/2024 8:26 AM [facility] Basophils Absolute, Body fluid 0 uL LAB HEMATOLOGY METHOD 06/13/2024 8:26 AM [facility] Lining/Mesothe lial Cells Absolute, Body fluid 0 uL LAB HEMATOLOGY METHOD 06/13/2024 8:26 AM [facility] Basophils %, Body fluid 0 % LAB HEMATOLOGY METHOD 06/13/2024 8:26 AM [facility] Joint Fluid Synovial structure / Unknown 06/12/2024 5:00 PM EST 06/13/2024 5:02 AM EST Julien Matthews LAB BODY FLUIDS AND STOOLS ORDERABLES NO SPECIMEN TYPE/SOURCE Final Result [facility] [address] [place] [address] * (ABNORMAL) Body Fluid Cell Count W/O Diff (06/12/2024 5:00 PM EST) Specimen Source, Body Fluid Synovial Fluid (type in source) 06/12/2024 8:21 PM EST [facility] Specimen Type Joint Fluid 06/12/2024 8:21 PM EST [facility] Color, Body fluid Yellow LAB HEMATOLOGY METHOD 06/12/2024 8:21 PM EST [facility] Appearance, Body fluid Cloudy(A) LAB HEMATOLOGY METHOD 06/12/2024 8:21 PM EST [facility] Volume, Body fluid 4.0 cc LAB HEMATOLOGY METHOD 06/12/2024 8:21 PM EST [facility] Red Blood Cell Count, Body fluid 10,000 uL LAB HEMATOLOGY METHOD 06/12/2024 8:21 PM EST [facility] Total Nucleated Cell Count, Body fluid >100,000 uL LAB HEMATOLOGY METHOD 06/12/2024 8:21 PM EST [facility] Fluid Container Specimen received in miscellaneous container LAB HEMATOLOGY METHOD 06/12/2024 8:21 PM EST [facility] Joint Fluid Synovial structure / Unknown 06/12/2024 5:00 PM EST 06/12/2024 7:43 PM EST Julien Matthews LAB BODY FLUIDS AND STOOLS ORDER VANESSA Final Result Performing Organization Address City/[facility] Co de Phone Number [facility] [address] [place] [address] * Joint Fluid Crystals (06/12/2024 5:00 PM EST) Crystals, Joint Fluid No Crystals Seen No Crystals Present 06/12/2024 11:03 PM EST [facility] Joint Fluid 06/12/2024 5:0 0 PM EST 06/12/2024 7:43 PM EST Julien Matthews LAB BODY FLUIDS AND STOOLS ORDER VANESSA Final Result Performing Organization Address [facility]/ZIP Co de Phone Number [facility] [address] [place] [address] documented in this encounter Visit Diagnoses Diagnosis [...] documented as of this encounter Care Teams Cook Vegetable Relationship Specialty Start Date End Date Addison Rizzo DO [address] [place] [address] PCP - General 04/26/24 06/23/24 [place] [address] PCP - General Family Medicine 06/24/24 Addison Rizzo DO [address] [facility] [place] [address] 06/24/24 Brooklyn Redmond LPN VALUE-[employer]ED [place] [address] TCM Nurse 06/23/24 07/23/24 documented as of this encounter
--- OUTSIDE RECORDS SUMMARY | 2025-01-05 10:58 | XMS_ITS | Encounter Summary ---
Author Organization [employer] ([place], [place], [place], [place]) Address [address] [place] [address] Care Team Providers Care Computational Geneticist Name Role Phone Unavailable Primary Care Provider Unavailabl e Encounter Details Date Type Department Care Team (Late st Contact Info) Description 01/31/2019 Transcribed Document [facility] Family Medicine [facility] [place] [address] ProviderEmilia MD [address] [place], [place] [id number] Social History Tobacco Use Types Packs/Day Years Used Date Smoking Tobacco: Never Assessed Sex and Gender Information Value Date Recorded Sex Assigned at Not on file Legal Sex Male 5:19 PM CDT Gender Identity Not on file Sexual Orientation Not on file documented as of this encounter Miscellaneous Notes * Cerner Conversion Note - Historical ProviderMD - 01/31/2019 2:00 AM CDT Automatic Teller Machine Servicer Details Entered On: 01/31/2019 2:33 EDT Performed [...] Line : No Ana Villeda Rn - 01/31/2019 2:33 EDT documented in this encounter Plan of Treatment Not on file documented as of this encounter Visit Diagnoses Not on filedocumented in this encounter
--- OUTSIDE RECORDS SUMMARY | 2025-01-05 10:58 | XMS_ITS | Clinical Summary ---
Author Organization [facility] Address [address] [place] [address] Care Team Providers Care Certified Scrub Tech Name Role Phone Estefania Bueno MD Primary [...] of Treatment Not on file Care Teams Certified Scrub Tech Relationship Specialty Start Date End Date Estefania Bueno MD [address] [place] [address] PCP - General 01/15/12
--- OUTSIDE RECORDS SUMMARY | 2025-01-05 10:58 | XMS_ITS | Encounter Summary ---
Author Organization [employer] ([place], [place], [place], [place]) Address [address] [place] [address] Care Team Providers Care Bail Attacher Name Role Phone Unavailable Primary Care Provider Unavailabl e Encounter Details Date Type Department Care Team (Late st Contact Info) Description 02/01/2019 Transcribed Document [facility] Family Medicine [place] [address] MD [address] [place], [place] [id number] Social History Tobacco Use Types Packs/Day Years Used Date Smoking Tobacco: Never Assessed Sex and Gender Information Value Date Recorded Sex Assigned at Not on file Legal Sex Male 5:19 PM CDT Gender Identity Not on file Sexual Orientation Not on file documented as of this encounter Miscellaneous Notes * Cerner Conversion Note - Emilia St MD - 02/01/2019 12:15 PM CDT DATE OF ADMISSION: 01/29/2019 DATE OF DISCHARGE: DISCHARGE SUMMARY DISCHARGE DIAGNOSES: 1. Chest pain. 2. Status post heart catheterization. 3. History of coronary artery disease status post coronary artery bypass graft. 4. Hypertension. 5. Acute on chronic kidney disease. 6. Hyperlipidemia. 7. Diabetes mellitus type 2. 8. Morbid obesity. DISCHARGE INSTRUCTIONS: Diet: According to [place] [employer]. Activities: As tolerated. Followup appointment [...] chronic kidney disease, has been followed by terrazzo grinder. Recommended patient to follow up as outpatient [...]
--- OUTSIDE RECORDS SUMMARY | 2025-01-05 10:58 | XMS_ITS | Clinical Summary ---
Author Organization [facility] Address [address] [place] [address] Care Team Providers Care Key Punch Operator Name Role Phone Pcp, No Primary Care Provider Unavailabl e Addison Rizzo DO Unavailable [phone] Allergies Active Allergy Reactions Criticality Noted [...] if needed for pain. Active HYDROcodone-aceta minophen ([place]) 5-325 MG tablet Take 1 tablet (5 [...] (08/22/2021): Added automatically from request for surgery [id number] Calculus of gallbladder and bile duct 12/27/2013 [...] 07/15/2023 Hypernatremia 05/25/2023 07/15/2023 Retroperitoneal bleed 05/05/20232023 Immunizations Immunization Administration Dates Next Due Influenza, [...] place to sleep or slept in a longterm (including now)? No 04/26/2024 PHQ-9 Answer Date [...] any time in the past 12 m [facility], were you homeless or living in a longterm (including now)? No 06/25/2024 CAGE ASSESSMENT Answer [...] drink first t alyx in the morning (EYE-AUTOMOTIVE FUEL INJECTION SERVICER) to steady your nerves or to get rid of a hangover? 0 06/25/2024 CAGE Questionnaire Score 0 024 Utilities Answer Date Recorded In the past 12 months has th e [email or web address], gas, oil, or water [employer] threatened to shut off services in your [...] Health Maintenance Due Date Last Done Comments [facility]-Medicare Annual Wellness (AWV) 1955 [facility]-/Child/Adol SDOH Screenings 1955 LDL-RMOBE-09 Vaccine (#1) 1962 Diabetes: Dental Exam 1967 [...] [facility]-Adult SDOH Screenings 12/24/2024 06/25/2024 [facility]-Influenza Vaccine (#1) 2025 08/11/2018, [facility]-Depression Screening 08/05/2025 08/05/2024, 07/09 [facility]-DTaP,Tdap,and Td [...] this topic Medical Devices Implanted Type Area Food And Nutrition Professor Device Identifier Shelf Expiration Date Model / Serial / Lot Embolic Trufill 1 Gm N Bca Liq - [id number] Implanted:Qty: 1 on 05/06/2023 by Abdoulaye James MD at [facility]-[id number] 08/06/2024 [id number] / / [id number] Vip Vascular Closure Device 6 Fr - [id number] Implanted:Qty: 1 on 05/06/2023 by Abdoulaye James MD at [facility] [employer]-[id number] 12/12/2023 [id number] / / [id number] Puraply Am 6x9 54 Sq Cm - [id number] Implanted:Qty: 1 on 03/16/2024 by Syed Jefferson MD at [facility] [employer]-[id number] 01/03/2026 [employer] [id number] / / [id number] 1C Procedures Procedure Name Priority Date/Time Associated Diagnosis Comments HEMOGLOBIN A1C Routine 06/25/2024 3:24 AM EST HEPATITIS C ANTIBODY - ED W/REFLEX TO HCV QUANT PCR STAT 06/24/2024 11:48 AM EST from Last 3 Months or Most Recently Relevant to Health Maintenance Results * Hemoglobin A1c (06/25/2024 3:24 AM EST) Hemoglobin A1c 4.8 <5.7 % 06/25/2024 3:52 AM EST [facility] Blood Venous blood specimen / Unknown Venipuncture / Unknown 06/25/2024 3:24 AM EST 06/25/2024 3:34 AM EST Narrative [facility] - 06/25/2024 3:52 AM EST HA1C Interpretive Data: Diagnosis of Diabetes: Diabetic > or = 6.5% Pre-diabetic 5.7 to 6.4% Non-diabetic < or = 5.6% Glycemic Targets for Type I and Type II Diabetics: Non- Adults <7.0% Adults <6.0% Children and Adolescents <7.5% Source: [place] [employer]. Standards of medical care in diabetes,2017. Diabetes Care.2017:40 (suppl 1):S1-S135. HbA1c assay performed by an ion-exchange chromatography method that is certified traceable to the DCCT. Huang Hubbard MD LAB BLOOD ORDERABLES Final Re sult [facility] [address] [place] [address] * Hepatitis C Antibody - ED (06/24/2024 11:48 AM EST) Hepatitis C Antibody Negative Negative 06/24/2024 1:02 PM EST [facility] Blood Venous blood specimen / Unknown Venipuncture / Unknown 06/24/2024 11:48 AM EST 06/24/2024 12:16 PM EST us Craig MA LAB BLOOD ORDERABLES Final Res ult [facility] [address] [place] [address] from Last 3 Months or Most Recently [...] 11/05/2023 06/29/2024 C. difficile 07/05/2024 07/05/2024 Insurance [facility] MEDICARE Advance Directives * Full Code (Latest [...] Patient has decision-making capacity? Yes Care Teams Key Punch Operator Relationship Specialty Start Date End Date Pcp, No [address] [place] [address] PCP - General Family Medicine 06/24/24 Addison Rizzo DO [address] [place] [address] 06/24/24
--- OUTSIDE RECORDS SUMMARY | 2025-01-05 10:58 | XMS_ITS | Encounter Summary ---
Author Organization [employer] ([place], [place], [place], [place]) Address [address] [place] [address] Care Team Providers Care Stacker Name Role Phone Unavailable Primary Care Provider Unavailabl e Encounter Details Date Type Department Care Team (Late st Contact Info) Description 01/30/2019 Transcribed Document [facility] [place] [facility] [place] [address] ProviderEmilia MD [address] [place], [place] [phone] Social History Tobacco Use Types Packs/Day Years Used Date Smoking Tobacco: Never Assessed Sex and Gender Information Value Date Recorded Sex Assigned at Not on file Legal Sex Male 5:19 PM CDT Gender Identity Not on file Sexual Orientation Not on file documented as of this encounter Miscellaneous Notes * Cerner Conversion Note - Emliia ProviderMD - 01/30/2019 2:57 PM CDT Patient: [...] History of obstructive sleep apnea / IMO [id number] / Confirmed, Active Problems (6) CKD (chronic kidney disease) Diabetes mellitus GERD (gastroesophageal reflux disease) History of obstructive sleep apnea [place] (hard of hearing) Hypertension Objective VS/Measurements Vitals Signs (last 24 hrs) Last Charted Minimum Maximum Temp 97.5 (JAN 30 11:00) 97.5 (JAN 30 11:00) 97.6 (JAN 29:47) Apical HR 68 (JAN 30 08:06) 68 (JAN 30 08:06) 74 (JAN 29 23:03) Mon HR 64 (JAN 30 11:00) 64 (JAN 30 11:00) 77 (JAN 29:) Resp Rate 16 (JAN 30:00) 16 (JAN 30:00) 20 (JAN 29:47) SBP H 141 (JAN 30 11:00) 95 (JAN 29 23:31) H 158 (JAN 30 08:06) DBP 69 (JAN 30 11:00) L 59 (JAN 29:) 84 (JAN 29:47) MAP 86 (JAN 30:00) 71 (JAN 29:31) 97 (JAN 29:47) SpO2 96 (JAN 30 [...]
--- OUTSIDE RECORDS SUMMARY | 2025-01-05 10:58 | XMS_ITS | Encounter Summary ---
Author Organization [employer] ([place], [place], [place], [place]) Address [address] [place] [address] Care Team Providers Care Coach Tour Driver Name Role Phone Unavailable Primary Care Provider Unavailabl e Encounter Details Date Type Department Care Team (Late st Contact Info) Description 01/30/2019 Transcribed Document [facility] [place] [facility] [place] [address] ProviderEmilia MD [address], [place] [id number] Social History Tobacco Use Types Packs/Day Years Used Date Smoking Tobacco: Never Assessed Sex and Gender Information Value Date Recorded Sex Assigned at Not on file Legal Sex Male 5:19 PM CDT Gender Identity Not on file Sexual Orientation Not on file documented as of this encounter Miscellaneous Notes * Cerner Conversion Note - Historical ProviderMD - 01/30/2019 2:00 AM CDT Medicare Nurse Details Entered On: 01/30/2019 2:21 EDT Performed [...] Line : No Ana Villeda Rn - 01/30/2019 2:21 EDT documented in this encounter Plan of Treatment Not on file documented as of this encounter Visit Diagnoses Not on filedocumented in this encounter
--- OUTSIDE RECORDS SUMMARY | 2025-01-05 10:58 | XMS_ITS | Encounter Summary ---
Author Organization [employer] ([place], [place], [place], [place]) Address [address] [place] [address] Care Team Providers Care Display Coordinator Name Role Phone Unavailable Primary Care Provider Unavailabl e Encounter Details Date Type Department Care Team (Late st Contact Info) Description 01/31/2019 Transcribed Document [facility] Family Medicine [facility] [place] [address] ProviderEmilia MD [address] [place], [place] [address] Social History Tobacco Use Types Packs/Day Years [...] and diabetes mellitus type 2 presented to [facility] with complaints of progressive chest pain with associated palpitations shortness of air and cough via [facility]. He underwent stress testing at their [...] JUNE MD-CAR Consulting Physician - EDILBERTO MIRANDA MD-NEP (nephrology)- ARF Consulting Physician - CHRISTIANO FRANCIS MD Referring Physician - FIONA PECK MD-INT Problem List/Past Medical History Ongoing Arrhythmia CKD (chronic kidney disease) Diabetes mellitus GERD (gastroesophageal reflux disease) History of obstructive sleep apnea [place] (hard of hearing) Hypertension Historical No qualifying [...] Lymph # 1.76 x10(3)/uL 01/31/2019 04:16 EDT [place] % 7.4 % 01/31/2019 04:16 EDT [place] # 0.45 K/uL 01/31/2019 04:16 EDT [employer] [...]
--- OUTSIDE RECORDS SUMMARY | 2025-01-05 10:58 | XMS_ITS | Encounter Summary ---
Author Organization [employer] ([place], [place], [place], [place]) Address [address] [place] [address] Care Team Providers Care Workforce Development Specialist Name Role Phone Unavailable Primary Care Provider Unavailabl e Encounter Details Date Type Department Care Team (Late st Contact Info) Description 01/30/2019 Transcribed Document [facility] [place] [address] [place] [address] ProviderEmilia MD [address] [place], [place] [phone] Social History Tobacco Use Types Packs/Day Years [...]
--- OUTSIDE RECORDS SUMMARY | 2025-01-05 10:58 | XMS_ITS | Encounter Summary ---
Author Organization [employer] ([place], [place], [place], [place]) Address [address] [place] [address] Care Team Providers Care Prosthetic Lab Technician Name Role Phone Unavailable Primary Care Provider Unavailabl e Encounter Details Date Type Department Care Team (Late st Contact Info) Description 01/29/2019 Transcribed Document [facility] [place] [facility] [place] [address] ProviderEmilia MD [address] [place], [place] [address] Social History Tobacco Use Types Packs/Day Years [...]
--- OUTSIDE RECORDS SUMMARY | 2025-01-05 10:58 | XMS_ITS | Encounter Summary ---
Author Organization [employer] ([place], [place], [place], [place]) Address [address] [place] [address] Care Team Providers Care Machine Brusher Name Role Phone Unavailable Primary Care Provider Unavailabl e Encounter Details Date Type Department Care Team (Late st Contact Info) Description 05/18/2019 Transcribed Document [facility] [place] [facility] [place] [address] ProviderEmilia MD [address] [place], [place] [phone] Social History Tobacco Use Types Packs/Day Years Used Date Smoking Tobacco: Never Assessed Sex and Gender Information Value Date Recorded Sex Assigned at Not on file Legal Sex Male 5:19 PM CDT Gender Identity Not on file Sexual Orientation Not on file documented as of this encounter Miscellaneous Notes * Cerner Conversion Note - Historical ProviderMD - 05/18/2019 4:07 PM HEALTH PROMOTER CR Chest 1 Vw Portable Ordered: 05/18/2019 Modified Reason for Exam: Chest Pain 05/18/2019 15:58 05/18/2019 16:07 (JORDAN GOMES) No further action required documented in this encounter Plan of Treatment Not on file documented as of this encounter Visit Diagnoses Not on filedocumented in this encounter
--- OUTSIDE RECORDS SUMMARY | 2025-01-05 10:58 | XMS_ITS | Encounter Summary ---
Author Organization [employer] ([place], [place], [place], [place]) Address [address] [place] [address] Care Team Providers Care Health Plan Manager Name Role Phone Unavailable Primary Care Provider Annie raya Encounter Details Date Type Department Care Team (Late st Contact Info) Description 01/29/2019 Transcribed Document [facility] [place] [facility] [place] [address] ProviderEmilia MD [address] [place], [place] [phone] Social History Tobacco Use Types Packs/Day Years [...] On: 02/01/2019 10:16 EDT by Lesvia Warner Slot Floor Attendant Nutrition Assessment Nutrition Assessment Reason : Automatic referral Lesvia Warner Slot Floor Attendant - 02/01/2019 10:10 EDT Nutrition Recommendations Dietitian [...] Care Level : No nutritional risk Lesvia Warner, Slot Floor Attendant - 02/01/2019 10:16 EDT Electronically signed by [facility], [facility] Conversion Land Inspector Cerner at 10/22/2022 11:01 PM CDT documented in this encounter Plan of Treatment Not on file documented as of this encounter Visit Diagnoses Not on filedocumented in this encounter
--- OUTSIDE RECORDS SUMMARY | 2025-01-05 10:58 | XMS_ITS | Encounter Summary ---
Author Organization [employer] ([place], [place], [place]) Address [address] [place] [address] Care Team Providers Care Rubber Moulding Machine Operator Name Role Phone Unavailable Primary Care Provider Unavailabl e Encounter Details Date Type Department Care Team (Late st Contact Info) Description 05/18/2019 Transcribed Document [facility] [place] [facility] [place] [address] ProviderEmilia MD [address] [place], [place] [phone] Social History Tobacco Use Types Packs/Day Years Used Date Smoking Tobacco: Never Assessed Sex and Gender Information Value Date Recorded Sex Assigned at Not on file Legal Sex Male 5:19 PM CDT Gender Identity Not on file Sexual Orientation Not on file documented as of this encounter Miscellaneous Notes * Cerner Conversion Note - Emilia ProviderMD - 05/18/2019 1:36 PM SAFETY INVESTIGATOR/CAUSE ANALYST ED Assessment Entered On: 05/18/2019 14:43 EST [...] Communication Barrier : None Primary Language : Greek Any Spiritual/Cultural Needs or Requests : No [...] Rhythm : Regular Nail Bed Color : [place] Chest Pain : Yes ERICA MONROY RN [...] 05/18/2019 14:42 EST Electronically signed by Rehan, [place] Conversion Security Operations Center Operator Cerner at 10/22/2022 11:12 PM CDT documented in this encounter Plan of Treatment Not on file documented as of this encounter Visit Diagnoses Not on filedocumented in this encounter
--- OUTSIDE RECORDS SUMMARY | 2025-01-05 10:58 | XMS_ITS | Encounter Summary ---
Author Organization [employer] ([place], [place], [place], [place]) Address [address] [place] [address] Care Team Providers Care Hair Specialist Name Role Phone Unavailable Primary Care Provider Unavailabl e Encounter Details Date Type Department Care Team (Late st Contact Info) Description 05/18/2019 Transcribed Document [facility] [place] [facility] [place] [address] ProviderEmilia MD [address] [place], [place] [phone] Social History Tobacco Use Types Packs/Day Years Used Date Smoking Tobacco: Never Assessed Sex and Gender Information Value Date Recorded Sex Assigned at Not on file Legal Sex Male 5:19 PM CDT Gender Identity Not on file Sexual Orientation Not on file documented as of this encounter Miscellaneous Notes * Cerner Conversion Note - Emilia ProviderMD - 05/18/2019 1:36 PM SECURITY SOLUTIONS ENGINEER ED Triage Entered On: 05/18/2019 13:41 EST [...] : 2 - Emergent Tracking Group : [facility] ED Shelby Jefferson RN - 05/18/2019 13:38 EST Mode of Arrival : Stretcher Transported to ED by : Ambulance/ALS EMS Service : [facility] To Room Via : Stretcher Accompanied By : Unaccompanied SHACTOR HELPER Medications and Interventions : Document ED Vital Signs : Document Height & Weight : Document ED Allergies : Document ED Reason for Visit : Document Tetanus Immunization : Unknown Insurance Associate Needed : No Shelby Jefferson RN - [...] Problems(Active) CKD (chronic kidney disease) (SNOMED CT :7903028048 ) Name of Problem: CKD (chronic kidney disease) ; Recorder: Ana Villeda RN; Confirmation: Confirmed ; Classification: Patient Stated ; Code: [id number] ; Contributor System: Jobr ; Last Updated: 01/29/2019 22:37 EDT ; Life Cycle Date: 01/29/2019 ; Life Cycle Status: Active ; Vocabulary: SNOMED CT Diabetes mellitus (SNOMED CT :346712226 ) Name of Problem: Diabetes mellitus ; Recorder: Ana Villeda RN; Confirmation: Confirmed ; Classification: Patient Stated ; Code: 232507547 ; Contributor System: [employer] ; Last Updated: 01/29/2019 22:37 EDT ; Life Cycle Date: 01/29/2019 ; Life Cycle Status: Active ; Vocabulary: SNOMED CT GERD (gastroesophageal reflux disease) (SNOMED CT :778889256 ) Name of Problem: GERD (gastroesophageal reflux disease) ; Recorder: Ana Villeda RN; Confirmation: Confirmed ; Classification: Patient Stated ; Code: 030727138 ; Contributor System: Jobr ; Last Updated: 01/29/2019 22:37 EDT ; Life Cycle Date: 01/29/2019 ; Life Cycle Status: Active ; Vocabulary: SNOMED CT History of obstructive sleep apnea (IMO :96151495 ) Name of Problem: History of obstructive sleep apnea ; Recorder: SYSTEM, SYSTEM; Confirmation: Confirmed ; Classification: Medical ; Code: 38845470 ; Last Updated: 01/29/2019 22:48 EDT ; Life Cycle Date: 01/29/2019 ; Life Cycle Status: Active ; Vocabulary: IMO KAW (hard of hearing) (SNOMED CT :98188670 ) Name of Problem: KAW (hard of hearing) ; Recorder: Ana Villeda RN; Confirmation: Confirmed ; Classification: Patient Stated ; Code: 57997219 ; Contributor System: Jobr ; Last Updated: 01/29/2019 22:37 EDT ; Life Cycle Date: 01/29/2019 ; Life Cycle Status: Active ; Vocabulary: SNOMED CT Hypertension (SNOMED CT :0250328659 ) Name of Problem: Hypertension ; Recorder: Ana Villeda RN; Confirmation: Confirmed ; Classification: Patient Stated ; Code: 5642200496 ; Contributor System: Jobr ; Last Updated: 01/29/2019 22:37 EDT ; Life Cycle Date: 01/29/2019 ; Life Cycle Status: Active ; Vocabulary: SNOMED CT Diagnoses(Active) Chest pain Date: 05/18/2019 ; Diagnosis Type: Reason For Visit ; Confirmation: Complaint of ; Clinical Dx: Chest pain ; Classification: Medical ; Clinical Service: Emergency medicine ; Code: PNED ; Probability: 0 ; Diagnosis Code: [id number] ED Height and Weight Height Source : Estimated Height Entry Format : [place] Height, Feet : 6 ft(Converted to: 183 cm, 72 Inch) Height, Inches : 2 Inch(Converted to: 0 ft 2 Inch, 5.08 cm) Clinical Height : 187.96 cm Weight Source, ED : Critical estimated dosing weight Weight Entry Format : [place] Weight, Pounds : 320 lb Clinical Dosing Weight : 145.45 kg Body Surface Area (BSA) : 2.66 m2 Body Mass Index : 41.2 kg/m2 (>HHI) [place] Body Weight (IBW) : 81.16 kg Shelby Jefferson RN - 05/18/2019 13:38 EST SHACTOR HELPER Medications and Interventions Treatments Prior to Arrival : Other: 20 G right AC; fsbs 346 Shelby Jefferson RN - 05/18/2019 13:38 EST Electronically signed by Rehan, [facility] Conversion Senior Director Insight Cerner at 10/22/2022 11:22 PM CDT documented in this encounter Plan of Treatment Not on file documented as of this encounter Visit Diagnoses Not on filedocumented in this encounter
--- OUTSIDE RECORDS SUMMARY | 2025-01-05 10:58 | XMS_ITS | Encounter Summary ---
Author Organization [employer] ([place], [place], [place], [place]) Address [address] [place] [address] Care Team Providers Care Inside Contractor Sales Name Role Phone Unavailable Primary Care Provider Unavailabl e Encounter Details Date Type Department Care Team (Late st Contact Info) Description 01/30/2019 Transcribed Document [facility] [place] [facility] [place] [address] ProviderEmilia MD [address] [place], [place] [phone] Social History Tobacco Use Types Packs/Day Years [...] Numbers : Insurance 1 Health Plan: [employer] [facility] Policy Number: [id number] Authorization Number: Insurance Primary Name : [employer] [facility] Policy Number: [id number] Authorization Status-Primary : Awaiting callback Authorized Service [...]
--- OUTSIDE RECORDS SUMMARY | 2025-01-05 10:58 | XMS_ITS | Encounter Summary ---
Author Organization [employer] ([place], [place], [place]) Address [address] [place] [address] Care Team Providers Care Supervisor Instrument Repair Name Role Phone Unavailable Primary Care Provider Unavailabl e Encounter Details Date Type Department Care Team (Late st Contact Info) Description 05/18/2019 Transcribed Document [facility] [place] Medicine [facility] [place] [address] ProviderEmilia MD [address] [place] [phone] Social History Tobacco Use Types Packs/Day Years Used Date Smoking Tobacco: Never Assessed Sex and Gender Information Value Date Recorded Sex Assigned at Not on file Legal Sex Male 5:19 PM CDT Gender Identity Not on file Sexual Orientation Not on file documented as of this encounter Miscellaneous Notes * Cerner Conversion Note - Historical ProviderMD - 05/18/2019 3:33 PM ELECTRONIC DATA INTERCHANGE SPECIALIST Patient: JOHNATHAN PARHAM Age: 63 years Sex: [...] GRAFT in 2004 at 50 Years. CHOLECYSTECTOMY (47565). CATARACT REMOVAL INSERTION OF LENS (53597). Right knee replacement. Hernia Repair. Carotid Endardectomy.. [...] reflux disease) History of obstructive sleep apnea [place] (hard of hearing) Hypertension . Physical Examination [...] Normal ventricular rate is 64 bpm. pr [id number] ms. Normal QTC. Sinus rhythm with no [...] % 26.0 % Lymph # 1.41 x10(3)/uL [place] % 8.3 % [place] # 0.45 K/uL Eos % 2.8 % Eos # 0.15 x10(3)/uL Baso % 0.6 % Baso # 0.03 x10(3)/uL Slide Review No IG# 0.02 x10(3)/uL IG% 0.40 % PT 10.0 Second(s) INR 1.0 PTT 26.8 Second(s) . Radiology results: Radiology Results (Last 48 hours) [id number] -- 05/18/2019 13:36 CR Chest 1 Vw [...] He does need to follow-up with his analytical technician in 24 hours. He is have any [...]
--- OUTSIDE RECORDS SUMMARY | 2025-01-05 10:58 | XMS_ITS | Encounter Summary ---
Author Organization [employer] ([place], [place], [place], [place]) Address [address] [place] [address] Care Team Providers Care Fast Food Delivery Driver Name Role Phone Unavailable Primary Care Provider Unavailabl e Encounter Details Date Type Department Care Team (Late st Contact Info) Description 01/30/2019 Transcribed Document [facility] Cardiology [address] [place] [address] [place] [address] [place] [address] [address] [place] [address] Social History Tobacco Use Types Packs/Day Years [...] and diabetes mellitus type 2 presented to [facility] with complaints of progressive chest pain with associated palpitations shortness of air and cough via [facility]. He unerwent stress testing at their facility [...] CKD (chronic kidney disease) / SNOMED CT 4298531652 / Confirmed Diabetes mellitus / SNOMED CT 661175696 / Confirmed GERD (gastroesophageal reflux disease) / SNOMED CT 632883239 / Confirmed [place] (hard of hearing) / SNOMED CT 95255312 / Confirmed History of obstructive sleep apnea / IMO 35464597 / Confirmed Hypertension / SNOMED CT 8775447930 / Confirmed Inactive: Arrhythmia / SNOMED CT 6936758821, Active Problems (6) CKD (chronic kidney disease) Diabetes mellitus GERD (gastroesophageal reflux disease) History of obstructive sleep apnea [place] (hard of hearing) Hypertension Histories No education [...] Procedure history: CORONARY ARTERY BYPASS GRAFT. CHOLECYSTECTOMY (23046). CATARACT REMOVAL INSERTION OF LENS (80852). Right knee replacement. Hernia Repair. Carotid Endardectomy. [...] 06:16) 65 (JAN 30 06:16) 77 (JAN 29:31) Resp Rate 18 (JAN 30 06:16) 18 [...] (Current Encounter/Past 24 Hours) ProBNP 234 pg/mL [place] 01/29/2019 23:10 Blood Gases (Current Encounter/Past 24 [...] IV hydration DC [place] I Plan for [facility] once renal function stable. Consider nephrology evaluation documented in this encounter Plan of Treatment Not on file documented as of this encounter Visit Diagnoses Not on filedocumented in this encounter
--- OUTSIDE RECORDS SUMMARY | 2025-01-05 10:58 | XMS_ITS | Referral Summary ---
Author Organization [employer] [facility] ([place], [place], [place], [place]) Address [address] [place] [address] Care Team Providers Care Retail Department Reset Name Role Phone Unavailable Primary Care Provider [...]
--- OUTSIDE RECORDS SUMMARY | 2025-01-05 10:58 | XMS_ITS | Clinical Summary ---
Author Organization [employer] [facility] ([place], [place], [place], [place]) Address [address] [place] [address] Care Team Providers Care Health Data Analyst Name Role Phone Unavailable Primary Care [...]
--- OUTSIDE RECORDS SUMMARY | 2025-01-05 10:58 | XMS_ITS | Encounter Summary ---
Author Organization [employer] ([place], [place], [place], [place]) Address [address] [place] [address] Care Team Providers Care Unhairing Inspector Name Role Phone Unavailable Primary Care Provider Unavailabl e Encounter Details Date Type Department Care Team (Late st Contact Info) Description 01/31/2019 Transcribed Document [facility] Cardiology [address] [place] [address] [place] [address] [place] [address] [address] [place] [address] Social History Tobacco Use Types Packs/Day Years [...] CKD (chronic kidney disease) / SNOMED CT 6332156677 / Confirmed Diabetes mellitus / SNOMED CT 571985882 / Confirmed GERD (gastroesophageal reflux disease) / SNOMED CT 302148822 / Confirmed [place] (hard of hearing) / SNOMED CT 35596504 / Confirmed History of obstructive sleep apnea / IMO 29798076 / Confirmed Hypertension / SNOMED CT 7854980680 / Confirmed, Active Problems (6) CKD (chronic kidney disease) Diabetes mellitus GERD (gastroesophageal reflux disease) History of obstructive sleep apnea [place] (hard of hearing) Hypertension Objective Intake and [...] 18:00) 60 (JAN 30 15:49) 77 (JAN 29 23:31) Resp Rate 16 (JAN 30 18:00) 16 [...] 01/29/2019 23:10 Radiology Results (Last 48 hours) [id number] -- 01/29/2019 21:34 CR Chest 2 Vws [...] normal. a. Recent abnormal stress testing at [facility]. 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 PLAN; 01/31/2019 Add amlodipine. If persitent HTN will increase Defer [place] I for now secondary to renal dysfunction Other Rx appropriate nephrology recs pending [facility] tomorrow if renal function stable. 01/30/2019 Continue aspirin/Plavix/rosuvastatin/coreg. Change home isosorbide dinitrate to him before 60 mg daily. Echocardiogram IV hydration DC [place] I Plan for [facility] once renal function stable. Consider nephrology evaluation documented in this encounter Plan of Treatment Not on file documented as of this encounter Visit Diagnoses Not on filedocumented in this encounter
--- OUTSIDE RECORDS SUMMARY | 2025-01-05 10:58 | XMS_ITS | Encounter Summary ---
Author Organization [employer] ([place], [place], [place], [place]) Address [address] [place] [address] Care Team Providers Care Tooth Grinder Name Role Phone Unavailable Primary Care Provider Unavailabl e Encounter Details Date Type Department Care Team (Late st Contact Info) Description 05/18/[address] [facility] [place] Family Medicine [address] [place] [address] ProviderEmilia MD [address] [place], [place] [address] Social History Tobacco Use Types Packs/Day Years Used Date Smoking Tobacco: Never Assessed Sex and Gender Information Value Date Recorded Sex Assigned at Not on file Legal Sex Male 5:19 PM CDT Gender Identity Not on file Sexual Orientation Not on file documented as of this encounter Miscellaneous Notes * Cerner Conversion Note - Historical ProviderMD - 05/18/2019 1:36 PM BANDSAW OPERATOR [place] Suicide Severity Rating Scale (C-SSRS) Entered On: 05/18/2019 14:44 EST Performed On: 05/18/2019 14:42 EST by ERICA MONROY RN [place] Suicide Severity Rating Scale (C-SSRS) CSSRS Past Month Wish to be : No CSSRS Past Month Suicidal Thoughts : No CSSRS Lifetime Suicide Behavior : No Suicide Severity Rating Score : 0 Suicide Severity Rating : No Additional Care Required at this time ERICA MONROY RN - 05/18/2019 14:42 EST Electronically signed by Kiara Van Conversion Health And Physical Education Teacher Cerner at 10/22/2022 11:09 PM CDT documented in this encounter Plan of Treatment Not on file documented as of this encounter Visit Diagnoses Not on filedocumented in this encounter
--- OUTSIDE RECORDS SUMMARY | 2025-01-05 10:58 | XMS_ITS | Encounter Summary ---
Author Organization [employer] ([place], [place], [place], [place]) Address [address] [place] [address] Care Team Providers Care Panel Laminator Name Role Phone Unavailable Primary Care Provider Unavailabl e Encounter Details Date Type Department Care Team (Late st Contact Info) Description 01/31/2019 Transcribed Document [facility] [place] Family Medicine [facility] [place] [address] ProviderEmilia MD [address] [place], [place] [address] Social History Tobacco Use Types Packs/Day Years [...] History of obstructive sleep apnea / IMO 25853078 / Confirmed, Active Problems (6) CKD (chronic kidney disease) Diabetes mellitus GERD (gastroesophageal reflux disease) History of obstructive sleep apnea [place] (hard of hearing) Hypertension Objective VS/Measurements Vitals [...] 90 (JAN 31 06:24) MAP 107 (JAN 31 06:24) 79 (JAN 30 18:00) 107 (JAN 31 [...]
--- OUTSIDE RECORDS SUMMARY | 2025-01-05 10:58 | XMS_ITS | Encounter Summary ---
Author Organization [employer] ([place], [place], [place], [place]) Address [address] [place] [address] Care Team Providers Care Returned Materials Inspector Name Role Phone Unavailable Primary Care Provider Unavailabl e Encounter Details Date Type Department Care Team (Late st Contact Info) Description 01/30/2019 Transcribed Document [facility] [place] [facility] [place] [address] ProviderEmilia MD [address] [place], [place] [phone] Social History Tobacco Use Types Packs/Day Years [...] Physician Requested for Consult : EDILBERTO MIRANDA MD-[facility] Provider Service Notified Name : Nephrology Physician Covering for Consult : CHRISTIANO FRANCIS MD Date and Time Call Returned : 01/30/2019 14:22 EDT Physician Returning Call : CHRISTIANO FRANCIS MD Ayubu, Sara, SWAN - 01/30/2019 14:22 EDT documented in this encounter Plan of Treatment Not on file documented as of this encounter Visit Diagnoses Not on filedocumented in this encounter
--- OUTSIDE RECORDS SUMMARY | 2025-01-05 10:58 | XMS_ITS | Encounter Summary ---
Author Organization [employer] ([place], [place], [place], [place]) Address [address] [place] [address] Care Team Providers Care Processing Supervisor Name Role Phone Unavailable Primary Care Provider Unavailabl e Encounter Details Date Type Department Care Team (Late st Contact Info) Description 01/29/2019 Transcribed Document [facility] [place] [facility] [place] [address] ProviderEmilia MD [address] [place], [place] [phone] Social History Tobacco Use Types Packs/Day Years Used Date Smoking Tobacco: Never Assessed Sex and Gender Information Value Date Recorded Sex Assigned at Not on file Legal Sex Male 5:19 PM CDT Gender Identity Not on file Sexual Orientation Not on file documented as of this encounter Miscellaneous Notes * [employer]ner Conversion Note - Emilia ProviderMD - 01/29/2019 9:34 PM CDT Admission [...] From : Emergency department Legal Guardian : rerecording mixer Support Person/Patient Development Advisor : No Want Family/Rep/Phys Notified of Admit : No Emergency Contact #1 : Samara Carey Emergency Contact #1 Emergency Contact #1 Relationship : Girlfriend Emergency Contact #2 : N/a Emergency Contact #2 Phone Number : N/a Emergency Contact #2 Relationship : N/a Information Obtained From : Patient Primary Language : [place] Preferred Communication Mode : Verbal Communication Barrier [...] Scale Risk Level : 0-24 Low Risk [place] Fall Interventions : Adequate lighting, Bed in [...] Source : Stated Height Entry Format : [place] Height, Feet : 6 ft(Converted to: 183 cm, 72 Inch) Height, Inches : 0 Inch(Converted to: 0 ft 0 Inch, 0.00 cm) Clinical Height : 182.88 cm Weight Source : Bed scale Weight Entry Format : [place] Clinical Dosing Weight : 135.91 kg Weight, Pounds : 299 lb Body Surface Area (BSA) : 2.53 m2 Body Mass Index : 40.6 kg/m2 (>HHI) [place] Body Weight : 77 kg Ana Villeda [...] Any Spiritual/Cultural Needs or Requests : No Gnosticism Preference : Orthodoxy Ana Villeda Rn - 01/29/2019 22:41 EDT [...] Ana Villeda Rn - 01/29/2019 22:41 EDT documented in this encounter Plan of Treatment Not on file documented as of this encounter Visit Diagnoses Not on filedocumented in this encounter
--- OUTSIDE RECORDS SUMMARY | 2025-01-05 10:58 | XMS_ITS | Data Portability ---
Author Organization [facility] ADMIN Address [address] [place] [id number] Care Team Providers Care Cardiac Nurse Specialist Name Role Phone MAMI PAYTON Primary Care [...] Organization Details Recorded Time Sensorineural hearing loss [id number] Active 2022 SOCORRO REYNOSO, AUD [address], Located Within [facility], [place], [address] , [facility] [place] 3 10:26:08 Problem Notes None recorded. Medical [...] Tobacco Smoking Status Never Smoker Lesa Bran [facility], [facility] 11/06/2022 13:01:36 Has Tobacco Cessation Counseling Been Provided? No [email or web address] Information not available 04/02/2023 Sex: Unknown Functional Status Question Answer Note LastModified by Organizat ion Details LastModified Time Do you use any illicit or recreational drugs? No [email or web address] Information not available 10/17/2022 Do you or have you ever used any other forms of tobacco or nicotine? No [email or web address] Information not available 04/02/2023 Mental Status None recorded. Family History Nothing Reported Notes:Mother - Fath er - Medical History No medical history recorded. Past Encounters Encounter ID Performer Location Encounter Start Date Encounter Closed Date Diagnosis/Indication Diagnosis SNOMED-CT Code Diagnosis ICD10 Code Diagnosis Note [id number] Joel Lopez MD [facility] [address] [place] [address] [address] [place] [address] 11/06/2022 12:44:51 11/06/2022 13:53:56 Recurrent urinary tract infection 526673588 N39.0 Increased frequency of urination 980065316 R35.0 Dysuria 86528065 R30.0 Atrophy of left kidney 831708090 N26.1 nonfunctio mason Chronic re nal insufficiency 042932843 N18.9 historical ly 37% right renal function and 0% on left. 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 [address] [place] [address] [address] [place] [address] 02/24/2023 15:38:26 02/28/2023 08:56:41 Recurrent urinary tract infection 900924129 N39.0 Increased frequency of urination 382921994 R35.0 Dysuria 23672603 R30.0 Atrophy of kidney 893583 005 N26.1 Chronic ki dney disease 592206314 N18.9 Nocturia 882016501 R35.1 Renal artery stenosis 30 3951817 I70.1 History of transient ischemic attack 551044701 Z86.73 Screening for malignant neoplasm of prostate 429070154 Z12.5 Balanitis xerotica obliterans 110006488 N48.0 Balanoposthitis 54328759 N47.6 mild, chronic History of diabetes mellitus 168723130 Z86.39 [id number] Kristin Goldstein NP, S [facility] [address] [place] [address],it [address] [place] [address] 04/02/2023 13:28:21 04/02/2023 15:29:15 Recurrent urinary tract infection 034554390 N39.0 Will send urine for culture and sensitivit yRenal function panelOnce renal function panel is back will determine ? CT scan for imaging of kidneys. Labwork returned and BUN 20 and Creat 2.1. Will order CT scan of abd/pelvis without contrast Increased frequency of urination 492794642 R35.0 Dysuria 75228458 R30.0 Atrophy of kidney 360804 005 N26.1 Chronic ki dney disease 663805559 N18.9 Nocturia 393396807 R35.1 Renal artery stenosis 30 6233712 I70.1 History of transient ischemic attack 329311938 Z86.73 Balanitis xerotica obliterans 129273079 N48.0 History of diabetes mellitus 117662500 Z86.39 Long-term current use of anticoagulant 654170703 Z79.01 Microscopic hematuria 19 1509078 R31.29 [id number] [facility] [place] [id number] 04/09/2023 10:25:37 04/09/2023 10:26:32 Sensorineural hearing loss 70240298 H90.3 [id number] [facility] [place] [id number] 09/02/2023 15:01:16 09/02/2023 15:01:47 Sensorineural hearing loss 03765782 H90.3 [id number] [facility] [place] [id number] 02/25/2024 13:33:35 02/25/2024 13:33:51 Sensorineural hearing loss 89717380 H90.3 [id number] [facility] [place] [address] [place] [address] 08/31/2024 14:41:51 08/31/2024 15:05:55 Sensorineural hearing loss 32758131 H90.3 [id number] [facility] [facility], [place] [address] 09/22/2024 11:38:24 09/22/2024 11:43:16 Sensorineural hearing loss 20713832 H90.3 [id number] [facility] [facility], [facility] [place] [address] 11/03/2024 10:28:23 11/03/2024 10:33:28 Sensorineural hearing loss 39976391 H90.3 Health Concerns Section Related Observation LastModified by Organization Detai ls LastModified Time None Recorded Concern Status LastModified by Organization Details LastModified Time None Recorded Advance Directives Directive None Recorded Payers Insurance Date Sequence Insurance Name Policy Number Policy Amaro Covered Member ID Amaro Member ID Guarantor Name 04/21/2019 1 GABBIA Johnathan Parham [id number] Johnathan Parham 10/31/2024 1 [employer] - GOLD PLUS (MEDICARE REPLACEMENT/A DVANTAGE - HMO) Johnathan Parham [id number] Johnathan Parham Notes Date Note Type Note Provider Name and Address Organization Details Recorded Time 09/02/2023 text/html Patient was seen today for a hearing aid service. Cleaned and adjusted hearing aids this date. CAITLYN POTTS [address] , [place], [address], [facility] [place] 09/02/2023 15:02:27 02/25/2024 text/html Patient was seen today for a hearing aid service. Cleaned and adjusted hearing aids this date. CAITLYN POTTS [address] , [place], [address], [facility] [place] 02/25/2024 13:34:28 08/31/2024 text/html Patient was seen today for a hearing aid service. Cleaned and adjusted hearing aids this date. CAITLYN POTTS [address] , [place], [address], [facility] [place] 08/31/2024 15:23:41 09/22/2024 text/html Patient was seen today for a hearing aid service. Cleaned and adjusted hearing aids this date. SOCORRO REYNOSO, AUD [address] , [place], [address], [facility] [place] 09/22/2024 11:47:14 11/03/2024 text/html Patient was seen today for a hearing aid service. Cleaned and adjusted hearing aids this date. SOCORRO REYNOSO, AUD [address] , [place], [address], [place] [facility] [place] 11/03/2024 10:36:35
--- OUTSIDE RECORDS SUMMARY | 2025-01-05 10:58 | XMS_ITS | Encounter Summary ---
Author Organization [employer] ([place], [place], [place], [place]) Address [address] [place] [address] Care Team Providers Care Distribution A Class Lineman Name Role Phone Unavailable Primary Care Provider Unavailabl e Encounter Details Date Type Department Care Team (Late st Contact Info) Description 01/30/[address] [facility] Family Medicine [facility] [place] [address] ProviderEmilia MD [address] [place], [place] [address] Social History Tobacco Use Types Packs/Day Years [...] has been evaluated there and transferred to [facility]. Patient came in, blood work done shows [...]
--- OUTSIDE RECORDS SUMMARY | 2025-01-05 10:58 | XMS_ITS | Encounter Summary ---
Author Organization [employer] ([place], [place], [place], [place]) Address [address] [place] [address] Care Team Providers Care Print Developer Name Role Phone Unavailable Primary Care Provider Unavailabl e Encounter Details Date Type Department Care Team (Late st Contact Info) Description 01/31/2019 Transcribed Document [facility] Family Medicine [address] [place] [address] ProviderEmilia MD [address] [place], [place] [phone] Social History Tobacco Use Types Packs/Day Years [...] Performed On: 01/31/2019 5:00 EDT by Ana Villeda, Rn Chart Check Powerplans Initiated/Discontinued as Appropriate : Yes All Active Orders Reviewed : Yes Ana Villeda Rn - 01/31/2019 5:29 EDT documented in this encounter Plan of Treatment Not on file documented as of this encounter Visit Diagnoses Not on filedocumented in this encounter
--- OUTSIDE RECORDS SUMMARY | 2025-01-05 10:59 | XMS_ITS | Encounter Summary ---
Author Organization [employer] ([place], [place], [place], [place]) Address [address] [place] [address] Care Team Providers Care Dry Yard Worker Name Role Phone Unavailable Primary Care Provider Unavailabl e Encounter Details Date Type Department Care Team (Late st Contact Info) Description 02/02/2019 Transcribed Document [facility] Medicine [facility] [place] [address] ProviderEmilia MD [address] [place] [address] Social History Tobacco Use Types Packs/Day Years Used Date Smoking Tobacco: Never Assessed Sex and Gender Information Value Date Recorded Sex Assigned at Not on file Legal Sex Male 5:19 PM CDT Gender Identity Not on file Sexual Orientation Not on file documented as of this encounter Miscellaneous Notes * Cerner Conversion Note - Emilia ProviderMD - 02/02/2019 12:42 PM CDT [facility] [place] [address] JOANNA COURTNEY :1955 Visit Time:01/29/2019 Your Visit Summary Your Care Team Admitting Physician - FIONA PECK MD-INT Attending Physician - FIONA PECK MD-YON Primary Care Physician - JUDITH BOSTON MD-[facility] Referring Physician - FIONA PECK MD-INT Your Diagnosis Other specified abnormal findings of blood chemistry, Other specified abnormal findings of blood chemistry Weakness Discharge Vitals Temperature 36.4 ??C Heart Rate (Monitored) 97 Respiratory Rate 16 Blood Pressure 167/83 What to do next Instructions From Your Care Team [facility] Address: [address] [place] [address] [place] [address] Please STOP taking Lisinopril Follow-Up Appointments Follow Up with Vessel Operator When 02/04/2019 08:15 AM EDT Comments Appointment has been made with Chelsea MA. Please bring ID, insurance card and list of current medications. Where: [address] , [address] [place], [place] [phone] Follow Up with [facility]hab When In 6 weeks Comments [...] parent to child (inherited). ??? Are of -Brazilian, , , , or descent. What are [...] by your health care provider. ??? Take pzih-ygr-ojynklw and prescription medicines only as told by [...] 07/12/2008 Document Revised: 02/10/2018 Document Reviewed: 05/21/2017 [employer] Interactive Patient Education ?? 2019 [employer]. Chronic Kidney Disease, Adult Chronic kidney disease [...] these instructions at home: Medicines ??? Take smqk-mgl-quovkye and prescription medicines only as told by [...] 09/17/2010 Document Revised: 07/28/2017 Document Reviewed: 07/28/2017 [employer] Interactive Patient Education ?? 2019 [employer]. Carbohydrate Counting for Diabetes Mellitus, Adult Carbohydrate [...] different for every person. A diet and dairy nutritionist (registered dietitian) can help you make a [...] of carbohydrates: ? hamburger bun or ?? Finnish muffin. ? oz (15 mL) syrup. ? [...] foods that contain carbohydrates: ??? Rice. ??? [place]. ??? Milk. ??? Strawberries. 2. Calculate how [...] manage your diabetes. ??? A diet and dairy nutritionist (registered dietitian) can help you make a meal plan and calculate how many carbohydrates you should have at each meal and snack. This information is not intended to replace advice given to you by your health care provider. Make sure you discuss any questions you have with your health care provider. Document Released: 2006 Document Revised: 12/31/2017 Document Reviewed: 12/04/2016 [employer] Interactive Patient Education ?? 2019 [employer]. Diabetes Mellitus and Skin Care Diabetes [...] (acanthosis nigricans). This typically affects people of -Brazilian and Brazilian- descent. ??? Red, raised, scar-like tissue that may itch, feel painful, or develop into a wound (necrobiosis lipoidica). ??? Blisters on feet, toes, hands, or fingers. ??? Thickened, wax-like areas of skin that usually occur on the hands, forehead, or toes (digital sclerosis). ??? Brown or red ring-shaped or oqud-ktxn-fjscmm patches of skin on the ears or [...] 12/03/2016 Document Revised: 01/01/2018 Document Reviewed: 12/03/2016 [employer] Interactive Patient Education ?? 2019 [employer]. Diabetes Mellitus and Nutrition, Adult When [...] that you work with a diet and dairy nutritionist (dietitian) to make a meal plan that [...] provider. ??? Work with a counselor or clinical systems educator to identify strategies to manage stress and any emotional and social challenges. Questions to ask a health care provider ??? Do I need to meet with a clinical systems educator? Do I need to meet with a dietitian? What number can I call if I have questions? When are the best times to check my blood glucose? Where to find more information: ??? [place] Diabetes Association: diabetes.org ??? Academy of Nutrition and Dietetics: www.eatright.org ??? National [place] of Diabetes and Digestive and Kidney Diseases (NIH): www.niddk.nih.gov Summary ??? A healthy meal plan will help you control your blood glucose and maintain a healthy lifestyle. ??? Working with a diet and dairy nutritionist (dietitian) can help you make a meal [...] 03/20/2006 Document Revised: 01/21/2018 Document Reviewed: 07/28/2017 [employer] Interactive Patient Education ?? 2019 [employer]. Hypertension Hypertension is another name for high [...] doctor. This is important. Medicines ??? Take txpa-cjg-hwuwiju and prescription medicines only as told by [...] 12/09/2008 Document Revised: 05/21/2017 Document Reviewed: 05/21/2017 [employer] Interactive Patient Education ?? 2019 [employer]. Coronary Artery Disease, Male Coronary artery disease (CAD) is a condition in which the arteries that lead to the heart (coronary arteries) become narrow or blocked. The narrowing or blockage can lead to decreased blood flow to the heart. Prolonged reduced blood flow can cause a heart attack (myocardial infarction or [place]). This condition may also be called coronary [...] these instructions at home: Medicines ??? Take gwkk-wxv-zhunewo and prescription medicines only as told by [...] 01/18/2015 Document Revised: 06/13/2017 Document Reviewed: 06/13/2017 [employer] Interactive Patient Education ?? 2019 [employer]. insulin isophane and insulin regular (IN horton [...] may report side effects to FDA at 1-099-FEA-8859. What other drugs will affect insulin isophane and insulin regular? This insulin may not work as well when you use other medicines at the same time. This includes prescription and qyek-vnq-qxbesyy medicines, vitamins, and herbal products. Some drugs [...] to ensure that the information provided by [employer]. ('[employer]') is accurate, up-to-date, and complete, but no guarantee is made to that effect. Drug information contained herein may be time sensitive. [employer] information has been compiled for use by healthcare practitioners and consumers in the [place] and therefore [employer] does not warrant that uses outside of the [place] are appropriate, unless specifically indicated otherwise. [employer]'s drug information does not endorse drugs, diagnose patients or recommend therapy. [employer] drug information is an informational resource designed [...] effective or appropriate for any given patient. [facility] does not assume any responsibility for any aspect of healthcare administered with the aid of information [facility] provides. The information contained herein is not intended to cover all possible uses, directions, precautions, warnings, drug interactions, allergic reactions, or adverse effects. If you have questions about the drugs you are taking, check with your doctor, nurse or pharmacist. Copyright 3925-7549 [employer]. Version: 8.01. Revision Date: 03/11/2018.hydralazine (dmitry payton) [...] may report side effects to FDA at 6-236-YTF-3401. What other drugs will affect hydralazine? Tell your doctor about all your current medicines and any you start or stop using, especially: ? diazoxide (an injectable blood pressure medication); or ?? an MAO inhibitor--isocarboxazid, linezolid, methylene blue injection, phenelzine, rasagiline, selegiline, tranylcypromine, and others. This list is not complete. Other drugs may interact with hydralazine, including prescription and ptoo-unp-kmtlrco medicines, vitamins, and herbal products. Not all [...]
--- OUTSIDE RECORDS SUMMARY | 2025-01-05 10:59 | XMS_ITS | Encounter Summary ---
Author Organization [employer] ([place], [place], [place], [place]) Address [address] [place] [address] Care Team Providers Care Repairer Welding Systems And Equipment Name Role Phone Unavailable Primary Care Provider Unavailabl e Encounter Details Date Type Department Care Team (Late st Contact Info) Description 05/18/2019 Transcribed Document [facility] [place] [facility] [place] [address] ProviderEmilia MD [address] [place] [address] Social History Tobacco Use Types Packs/Day Years Used Date Smoking Tobacco: Never Assessed Sex and Gender Information Value Date Recorded Sex Assigned at Not on file Legal Sex Male 5:19 PM CDT Gender Identity Not on file Sexual Orientation Not on file documented as of this encounter Miscellaneous Notes * Cerner Conversion Note - Emilia St MD - 05/18/2019 6:16 PM MANAGER MOLECULAR [facility] [place], [place] [id number] JOHNATHAN PAHRAM :1955 Visit Time:05/18/2019 Your Visit Summary Your [...] Within 2 to 3 days Where: [address] [place] [place] [address]- Business (1) Allergies Contrast Dye Immunizations This [...] range between ( 0.0 and 7.0 ) Nelson #: 0.45 K/uL -- Normal range between ( 0.16 and 1.00 ) Eos #: 0.15 x10(3)/uL -- Normal range between ( 0.00 and 0.80 ) Nelson %: 8.3 % -- Normal range between [...] these instructions at home: Medicines ??? Take krhs-lqc-zawxmeo and prescription medicines only as told by [...] that you work with a diet and clinical documentation improvement specialist (registered dietitian) to educate you about healthy [...] 2006 Document Revised: 07/28/2017 Document Reviewed: 07/28/2017 [employer] Interactive Patient Education ?? 2019 [employer]. Emergency Awareness and Preventative Care STROKE [...] Assistance with quitting is available by contacting 2-263-BIGNNOW. This is a free resource providing counseling, [...] including: emergency, radiology, or pathology physicians. Patient Name:JOHNAHTAN PARHAM I have received this information and was given the opportunity to ask questions. Patient/Hatchery Worker Name: Patient/Hatchery Worker Signature: Relationship to Patient: Clinician/Hospital Hatchery Worker Signature: Please Provide a Telephone Number Where You Can Be Reached: Is it Permissible To Leave a Message? Date: documented in this encounter Plan of Treatment Not on file documented as of this encounter Visit Diagnoses Not on filedocumented in this encounter
--- OUTSIDE RECORDS SUMMARY | 2025-01-05 10:59 | XMS_ITS | Encounter Summary ---
Author Organization [employer] ([place], [place], [place], [place]) Address [address] [place] [address] Care Team Providers Care Glass Grinder Name Role Phone Unavailable Primary Care Provider Unavailabl e Encounter Details Date Type Department Care Team (Late st Contact Info) Description 05/18/2019 Transcribed Document [facility] [place] [address] [place] [address] ProviderEmilia MD [address] [place], [place] [phone] Social History Tobacco Use Types Packs/Day Years Used Date Smoking Tobacco: Never Assessed Sex and Gender Information Value Date Recorded Sex Assigned at Not on file Legal Sex Male 5:19 PM CDT Gender Identity Not on file Sexual Orientation Not on file documented as of this encounter Miscellaneous Notes * Cerner Conversion Note - Historical ProviderMD - 05/18/2019 2:22 PM ANDROID FRAMEWORK DEVELOPER Pain Assessment Entered On: 05/18/2019 15:25 EST Performed On: 05/18/2019 15:25 EST by ERICA MONROY RN Intervention Information: morphine Performed by ERICA MONROY RN on 05/18/2019 14:38:00 EST morphine,4mg IV Push,Right Antecubit Muddy Pain Assessment Pain Assessment : Follow-up assessment [...]
--- OUTSIDE RECORDS SUMMARY | 2025-01-05 10:59 | XMS_ITS | Encounter Summary ---
Author Organization [employer] ([place], [place], [place], [place]) Address [address] [place] [address] Care Team Providers Care Deputy Sheriff Civil Division Name Role Phone Unavailable Primary Care Provider Unavailabl e Encounter Details Date Type Department Care Team (Late st Contact Info) Description 02/01/2019 Transcribed Document [facility] [place] [facility] [place] [address] ProviderEmilia MD [address] [place] [id number] Social History Tobacco Use Types Packs/Day Years [...] 76 mg/dL 01/31/2019 14:02 EDT Protein Ur [place] 14 mg/dL 01/31/2019 14:02 EDT WBC 5.9 [...] Lymph # 1.47 x10(3)/uL 02/01/2019 05:17 EDT [place] % 7.9 % 02/01/2019 05:17 EDT [place] # 0.47 K/uL 02/01/2019 05:17 EDT Eos [...]
--- OUTSIDE RECORDS SUMMARY | 2025-01-05 10:59 | XMS_ITS | Encounter Summary ---
Author Organization [employer] ([place], [place], [place], [place]) Address [address] [place] [address] Care Team Providers Care Credit Portfolio Manager Name Role Phone Unavailable Primary Care Provider Unavailabl e Encounter Details Date Type Department Care Team (Late st Contact Info) Description 02/02/2019 Transcribed Document [facility] Family Medicine [facility] [place] [address] ProviderEmilia MD [address] [place], [place] [phone] Social History Tobacco Use Types Packs/Day Years Used Date Smoking Tobacco: Never Assessed Sex and Gender Information Value Date Recorded Sex Assigned at Not on file Legal Sex Male 5:19 PM CDT Gender Identity Not on file Sexual Orientation Not on file documented as of this encounter Miscellaneous Notes * Cerner Conversion Note - Historical ProviderMD - 02/02/2019 2:00 AM CDT Pastoral Counselor Details Entered On: 02/02/2019 6:46 EDT Performed [...]
--- OUTSIDE RECORDS SUMMARY | 2025-01-05 10:59 | XMS_ITS | Encounter Summary ---
Author Organization [employer] ([place], [place], [place], [place]) Address [address] [place] [address] Care Team Providers Care Maintenance Service Dispatcher Name Role Phone Unavailable Primary Care Provider Unavailabl e Encounter Details Date Type Department Care Team (Late st Contact Info) Description 02/01/2019 Transcribed Document [facility] Cardiology [address] [place] [address] Atilio White MD [address] [facility] [address] [place] [address] Social History Tobacco Use Types Packs/Day Years [...] reflux disease) History of obstructive sleep apnea [place] (hard of hearing) Hypertension Objective Intake and [...] (FEB 01 03:16) Resp Rate 18 (FEB 01:30) 16 (FEB 01 06:22) 20 (JAN 31 15:57) SBP H 171 (FEB 01:30) H 146 (FEB 01 11:00) H 183 (JAN 31 18:03) DBP 86 (FEB 01 11:30) 71 (FEB 01 03:16) H 96 (JAN 31 15:57) MAP 102 (FEB 01:30) 95 (FEB 01 11:00) 119 (JAN 31 [...] 24 Hours) Radiology Results (Last 48 hours) [id number] -- 01/29/2019 21:34 CR Chest 2 Vws [...] normal. a. Recent abnormal stress testing at [facility] 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 PLAN; 02/01/19 [facility] today unremarkable. Recommend tight BP control. NOthing further to add. Follow up with Dr Daily 2-3 weeks. Will sign off. 01/31/2019 Add amlodipine. If persitent HTN will increase Defer [place] I for now secondary to renal dysfunction Other Rx appropriate nephrology recs pending [facility] tomorrow if renal function stable. 01/30/2019 Continue aspirin/Plavix/rosuvastatin/coreg. Change home isosorbide dinitrate to him before 60 mg daily. Echocardiogram IV hydration DC [place] I Plan for [facility] once renal function stable. Consider nephrology evaluation documented in this encounter Plan of Treatment Not on file documented as of this encounter Visit Diagnoses Not on filedocumented in this encounter
--- OUTSIDE RECORDS SUMMARY | 2025-01-05 10:59 | XMS_ITS | Encounter Summary ---
Author Organization [employer] ([place], [place], [place], [place]) Address [address] [place] [address] Care Team Providers Care Civil Estimator Name Role Phone Unavailable Primary Care Provider Unavailabl e Encounter Details Date Type Department Care Team (Late st Contact Info) Description 02/02/2019 Transcribed Document [facility] [place] [address] ProviderEmilia MD [address] [place], [place] [phone] Social History Tobacco Use Types Packs/Day Years [...] cause a heart attack (myocardial infarction or IA). This condition may also be called coronary [...] these instructions at home: Medicines ??? Take zszt-rfx-uuvwmab and prescription medicines only as told by [...] 01/18/2015 Document Revised: 06/13/2017 Document Reviewed: 06/13/2017 [employer] Interactive Patient Education ? 2019 [employer] Endocrinology Carbohydrate Counting for Diabetes Mellitus, [...] different for every person. A diet and nutritional health coach (registered dietitian) can help you make a [...] of carbohydrates: ? hamburger bun or ? Bolivian muffin. ? oz (15 mL) syrup. ? [...] foods that contain carbohydrates: ??? Rice. ??? [place]. ??? Milk. ??? Strawberries. 2. Calculate how [...] manage your diabetes. ??? A diet and nutritional health coach (registered dietitian) can help you make a meal plan and calculate how many carbohydrates you should have at each meal and snack. This information is not intended to replace advice given to you by your health care provider. Make sure you discuss any questions you have with your health care provider. Document Released: 2006 Document Revised: 12/31/2017 Document Reviewed: 12/04/2016 [employer] Interactive Patient Education ? 2019 [employer] Diabetes Mellitus and Skin Care Diabetes [...] (acanthosis nigricans). This typically affects people of -[place]uneian and Br[place]- descent. ??? Red, raised, scar-like tissue that may itch, feel painful, or develop into a wound (necrobiosis lipoidica). ??? Blisters on feet, toes, hands, or fingers. ??? Thickened, wax-like areas of skin that usually occur on the hands, forehead, or toes (digital sclerosis). ??? Brown or red ring-shaped or bhai-nkqa-jcctax patches of skin on the ears or [...] 12/03/2016 Document Revised: 01/01/2018 Document Reviewed: 12/03/2016 [employer] Interactive Patient Education ? 2019 [employer] Diabetes Mellitus and Nutrition, Adult When [...] that you work with a diet and nutritional health coach (dietitian) to make a meal plan that [...] provider. ??? Work with a counselor or breastfeeding educator to identify strategies to manage stress and any emotional and social challenges. Questions to ask a health care provider ??? Do I need to meet with a breastfeeding educator? Do I need to meet with a dietitian? What number can I call if I have questions? When are the best times to check my blood glucose? Where to find more information: ??? [place] Diabetes Association: diabetes.org ??? Academy of Nutrition and Dietetics: www.eatright.org ??? National [place] of Diabetes and Digestive and Kidney Diseases (NIH): www.niddk.nih.gov Summary ??? A healthy meal plan will help you control your blood glucose and maintain a healthy lifestyle. ??? Working with a diet and nutritional health coach (dietitian) can help you make a meal [...] 03/20/2006 Document Revised: 01/21/2018 Document Reviewed: 07/28/2017 [employer] Interactive Patient Education ? 2019 [employer]. Nephrology Diabetic Nephropathy Diabetic nephropathy is kidney [...] parent to child (inherited). ??? Are of -[place]uneian, , , , or descent. What are [...] by your health care provider. ??? Take yqhv-cig-wxrojha and prescription medicines only as told by [...] 07/12/2008 Document Revised: 02/10/2018 Document Reviewed: 05/21/2017 [employer] Interactive Patient Education ? 2019 [employer]. Chronic Kidney Disease, Adult Chronic kidney disease [...] these instructions at home: Medicines ??? Take hvqn-yep-ybygfib and prescription medicines only as told by [...] 09/17/2010 Document Revised: 07/28/2017 Document Reviewed: 07/28/2017 Tumblr Interactive Patient Education ? 2019 [employer] Hypertension Hypertension is another name for [...] doctor. This is important. Medicines ??? Take davi-enj-rtmuqzo and prescription medicines only as told by [...] 12/09/2008 Document Revised: 05/21/2017 Document Reviewed: 05/21/2017 [employer]blr Interactive Patient Education ? 2019 [employer] documented in this encounter Plan of Treatment Not on file documented as of this encounter Visit Diagnoses Not on filedocumented in this encounter
--- OUTSIDE RECORDS SUMMARY | 2025-01-05 10:59 | XMS_ITS | Encounter Summary ---
Author Organization [employer] ([place], [place], [place], [place]) Address [address] [place] [address] Care Team Providers Care Treatment Counselor Name Role Phone Unavailable Primary Care Provider Unavailabl e Encounter Details Date Type Department Care Team (Late st Contact Info) Description 02/02/2019 Transcribed Document [facility] Family Medicine [facility] [place] [address] ProviderEmilia MD [address] [place], [place] [phone] Social History Tobacco Use Types Packs/Day Years [...] Stated) GERD (gastroesophageal reflux disease) (Patient Stated) [place] (hard of hearing) (Patient Stated) History of [...] 40.6 kg/m2 Critical (01/29/19 22:48:00) Rapid Response Treatment Counselor #1 : SHEREEN ZURITA V, RN SHEREEN ZURITA V RN - 02/02/2019 1:36 EDT documented in this encounter Plan of Treatment Not on file documented as of this encounter Visit Diagnoses Not on filedocumented in this encounter
--- OUTSIDE RECORDS SUMMARY | 2025-01-05 10:59 | XMS_ITS | Encounter Summary ---
Author Organization [employer] ([place], [place], [place], [place]) Address [address] [place] [address] Care Team Providers Care Desizing Machine Back Tender Name Role Phone Unavailable Primary Care Provider Unavailabl e Encounter Details Date Type Department Care Team (Late st Contact Info) Description 02/02/2019 Transcribed Document [facility] Family Medicine [facility] [place] [address] ProviderEmilia MD [address] [place], [place] [phone] Social History Tobacco Use Types Packs/Day Years [...]
--- OUTSIDE RECORDS SUMMARY | 2025-01-05 10:59 | XMS_ITS | Encounter Summary ---
Author Organization [employer] ([place], [place], [place], [place]) Address [address] [place] [address] Care Team Providers Care Emergency Medicine Name Role Phone Unavailable Primary Care Provider Unavailabl e Encounter Details Date Type Department Care Team (Late st Contact Info) Description 02/02/2019 Transcribed Document [facility] [place] [address] [place] [address] ProviderEmilia MD [address] [place], [place] [phone] Social History Tobacco Use Types Packs/Day Years [...] N/A Warfarin Discharge Ins : N/A Kami Rosenthal, Rn-Clinical Coordinator - 02/02/2019 12:40 EDT documented in this encounter Plan of Treatment Not on file documented as of this encounter Visit Diagnoses Not on filedocumented in this encounter
--- OUTSIDE RECORDS SUMMARY | 2025-01-05 10:59 | XMS_ITS | Encounter Summary ---
Author Organization [employer] ([place], [place], [place], [place]) Address [address] [place] [address] Care Team Providers Care Tank Car Cleaner Name Role Phone Unavailable Primary Care Provider Unavailabl e Encounter Details Date Type Department Care Team (Late st Contact Info) Description 02/02/2019 Transcribed Document [facility] [place] [facility] [place] [address] ProviderEmilia MD [address] [place], [place] [phone] Social History Tobacco Use Types Packs/Day Years [...]
--- OUTSIDE RECORDS SUMMARY | 2025-01-05 10:59 | XMS_ITS | Encounter Summary ---
Author Organization [employer] ([place], [place], [place], [place]) Address [address] [place] [address] Care Team Providers Care Pressurised Container Filler Name Role Phone Unavailable Primary Care Provider Unavailabl e Encounter Details Date Type Department Care Team (Late st Contact Info) Description 02/02/2019 Transcribed Document [facility] [place] [facility] [address] ProviderEmilia MD [address] [place], [place] [phone] Social History Tobacco Use Types Packs/Day Years Used Date Smoking Tobacco: Never Assessed Sex and Gender Information Value Date Recorded Sex Assigned at Not on file Legal Sex Male 5:19 PM CDT Gender Identity Not on file Sexual Orientation Not on file documented as of this encounter Miscellaneous Notes * [employer]ner Conversion Note - Emilia St MD - 02/02/2019 10:42 AM CDT Patient: JOHNATHAN PARHAM Age: 63 years Sex: [...] History of obstructive sleep apnea / IMO [id number] / Confirmed, Active Problems (6) CKD (chronic kidney disease) Diabetes mellitus GERD (gastroesophageal reflux disease) History of obstructive sleep apnea [place] (hard of hearing) Hypertension Objective VS/Measurements Vitals [...]
--- OUTSIDE RECORDS SUMMARY | 2025-01-05 10:59 | XMS_ITS | Encounter Summary ---
Author Organization [employer] ([place], [place], [place], [place]) Address [address] [place] [address] Care Team Providers Care Order Processing Specialist Name Role Phone Unavailable Primary Care Provider Unavailabl e Encounter Details Date Type Department Care Team (Late st Contact Info) Description 02/01/2019 Transcribed Document [facility] Family Medicine [facility] [place] [address] ProviderEmilia MD [address] [place], [place] [phone] Social History Tobacco Use Types Packs/Day Years [...]
--- OUTSIDE RECORDS SUMMARY | 2025-01-05 10:59 | XMS_ITS | Encounter Summary ---
Author Organization [employer] ([place], [place], [place], [place]) Address [address] [place] [address] Care Team Providers Care Senior Mobile Solutions Architect Name Role Phone Unavailable Primary Care Provider Unavailabl e Encounter Details Date Type Department Care Team (Late st Contact Info) Description 02/01/2019 Transcribed Document [facility] [place] [facility] [place] [address] ProviderEmilia MD [address] [place], [place] [phone] Social History Tobacco Use Types Packs/Day Years Used Date Smoking Tobacco: Never Assessed Sex and Gender Information Value Date Recorded Sex Assigned at Not on file Legal Sex Male 5:19 PM CDT Gender Identity Not on file Sexual Orientation Not on file documented as of this encounter Miscellaneous Notes * [employer]ner Conversion Note - Emilia St MD - 02/01/2019 11:47 AM CDT Patient: JOHNATHAN PARHAM Age: 63 [...] History of obstructive sleep apnea / IMO [id number] / Confirmed, Active Problems (6) CKD (chronic kidney disease) Diabetes mellitus GERD (gastroesophageal reflux disease) History of obstructive sleep apnea [place] (hard of hearing) Hypertension Objective VS/Measurements Vitals [...]
--- OUTSIDE RECORDS SUMMARY | 2025-01-05 10:59 | XMS_ITS | Encounter Summary ---
Author Organization [employer] ([place], [place], [place], [place]) Address [address] [place] [address] Care Team Providers Care Postal Delivery Officer Name Role Phone Unavailable Primary Care Provider Unavailabl e Encounter Details Date Type Department Care Team (Late st Contact Info) Description 05/18/2019 Transcribed Document [facility] [place] [facility] [place] [address] ProviderEmilia MD [address] [place], [place] [address] Social History Tobacco Use Types Packs/Day Years Used Date Smoking Tobacco: Never Assessed Sex and Gender Information Value Date Recorded Sex Assigned at Not on file Legal Sex Male 5:19 PM CDT Gender Identity Not on file Sexual Orientation Not on file documented as of this encounter Miscellaneous Notes * [employer]ner Conversion Note - Historical ProviderMD - 05/18/2019 6:17 PM PRACTICE ADMINISTRATOR ED Discharge Entered On: 05/18/2019 18:17 EST [...]
--- OUTSIDE RECORDS SUMMARY | 2025-01-05 10:59 | XMS_ITS | Encounter Summary ---
Author Organization [employer] ([place], [place], [place], [place]) Address [address] [place] [address] Care Team Providers Care Director Advanced Name Role Phone Unavailable Primary Care Provider Unavailabl e Encounter Details Date Type Department Care Team (Late st Contact Info) Description 02/04/2019 Transcribed Document [facility] [place] [facility] [place] [address] ProviderEmilia MD [address] [place], [place] [phone] Social History Tobacco Use Types Packs/Day Years [...]
--- OUTSIDE RECORDS SUMMARY | 2025-01-05 10:59 | XMS_ITS | Encounter Summary ---
Author Organization [employer] ([place], [place], [place], [place]) Address [address] [place] [address] Care Team Providers Care Rn Pacu Name Role Phone Unavailable Primary Care Provider Unavailabl e Encounter Details Date Type Department Care Team (Late st Contact Info) Description 02/03/2019 Transcribed Document [facility] [place] [facility] [place] [address] ProviderEmilia MD [address] [place], [place] [phone] Social History Tobacco Use Types Packs/Day Years [...] Numbers : Insurance 1 Health Plan: [employer] Policy Number: [id number] Authorization Number: Insurance Primary Name : [employer] Policy Number: [id number] Authorization Status-Primary : Notification only Authorization Number-Primary : [id number] Authorized Service Begin Date-Primary : 01/29/2019 EDT Authorization Comments-Primary : Per call from Esper[facility] approved IP admission. Historical Authorization Comments-Primary : Comment 1: [facility]: does not meet IP, did we want to change to OBS or have it routed to medical technician assistant? Pt had heart cath planned for today, asked him to wait for outcome of C. Cath unremarkable per cards note, discussed case w/ DMc who requests leave as IP and have it routed to med director. [facility] back to [facility] to request route to MD. (MANOLO CHAU, RN-Utilization Review 02/01/2019 14:35) Comment 2: Received voice mail on main line from Doris at [facility] stating that pt OBS, not meeting for INPT and we need to send more clinical if we have any. ph# [phone] fx# [phone] Made Manolo De Jesus aware as she is following the patient today. (MALIHA DOSHI, Pharmacy General Manager 02/01/2019 13:11) Comment 3: Per [facility] notes Notify Payer of Admission - InProgress - faxed clinicals via [employer]ner. (MIRYAM KOTHARI RN 01/30/2019 13:46) MIRYAM KOTHARI RN - 02/03/2019 9:44 EDT documented in this encounter Plan of Treatment Not on file documented as of this encounter Visit Diagnoses Not on filedocumented in this encounter
--- OUTSIDE RECORDS SUMMARY | 2025-01-05 10:59 | XMS_ITS | Encounter Summary ---
Author Organization [employer] ([place], [place], [place], [place]) Address [address] [place] [address] Care Team Providers Care Dock Superintendent Name Role Phone Unavailable Primary Care Provider Unavailabl e Encounter Details Date Type Department Care Team (Late st Contact Info) Description 02/01/2019 Transcribed Document [facility] [place] [facility] [place] [address] ProviderEmilia MD [address] [place], [place] [phone] Social History Tobacco Use Types Packs/Day Years Used Date Smoking Tobacco: Never Assessed Sex and Gender Information Value Date Recorded Sex Assigned at Not on file Legal Sex Male 5:19 PM CDT Gender Identity Not on file Sexual Orientation Not on file documented as of this encounter Miscellaneous Notes * [employer]ner Conversion Note - Historical ProviderMD - 02/01/2019 2:00 AM CDT Communications Attendant Details Entered On: 02/01/2019 4:35 EDT Performed [...]
--- OUTSIDE RECORDS SUMMARY | 2025-01-05 10:59 | XMS_ITS | Encounter Summary ---
Author Organization [employer] ([place], [place], [place], [place]) Address [address] [place] [address] Care Team Providers Care Nuclear Equipment Operator Name Role Phone Unavailable Primary Care Provider Unavailabl e Encounter Details Date Type Department Care Team (Late st Contact Info) Description 02/01/2019 Transcribed Document [facility] [place] Medicine [address] [place] [address] ProviderEmilia MD [address] [place], [place] [address] Social History Tobacco Use Types Packs/Day Years [...] Spiritual Care Spiritual Care Referred by : Supervisor [employer] initiated Reason for Visit : Initial Ministry Provided to : Patient, Family/Significant other Intervention/Comment/Summary Points : 3 day visit with Johnathan and his . Yarsanism Preference : Yarsanism DANYEL NICHOLSON Chaplain - 02/01/2019 19:31 EDT documented in this encounter Plan of Treatment Not on file documented as of this encounter Visit Diagnoses Not on filedocumented in this encounter
--- OUTSIDE RECORDS SUMMARY | 2025-01-05 10:59 | XMS_ITS | Encounter Summary ---
Author Organization [email or web address] ([place], [place], [place], [place]) Address [address] [place] [address] Care Team Providers Care Manager Resource Name Role Phone Unavailable Primary Care Provider Unavailabl e Encounter Details Date Type Department Care Team (Late st Contact Info) Description 02/02/2019 Transcribed Document [facility] [place] [facility] [place] [address] ProviderEmilia MD [address] [place] [phone] Social History Tobacco Use Types Packs/Day Years [...] # 0.70 x10(3)/uL (Low) 02/02/2019 03:25 EDT Bay % 4.3 % 02/02/2019 03:25 EDT [place] # 0.35 K/uL 02/02/2019 03:25 EDT Eos % 0.0 % 02/02/2019 03:25 EDT Eos # 0.00 x10(3)/uL 02/02/2019 03:25 EDT Baso % 0.2 % 02/02/2019 03:25 EDT Baso # 0.02 x10(3)/uL 02/02/2019 03:25 EDT Slide Review No 02/02/2019 03:25 EDT IG# 0.06 x10(3)/uL (High) 02/02/2019 03:25 EDT IG% 0.70 % (High) 02/02/2019 03:25 EDT documented in this encounter Plan of Treatment Not on file documented as of this encounter Visit Diagnoses Not on filedocumented in this encounter
--- OUTSIDE RECORDS SUMMARY | 2025-01-05 10:59 | XMS_ITS | Encounter Summary ---
Author Organization [employer] ([place], [place], [place], [place]) Address [address] [place] [address] Care Team Providers Care Assessment Services Manager Name Role Phone Unavailable Primary Care Provider Unavailabl e Encounter Details Date Type Department Care Team (Late st Contact Info) Description 02/01/2019 Transcribed Document [facility] [place] [address] [place] [address] ProviderEmilia MD [address] [place], [place] [phone] Social History Tobacco Use Types Packs/Day Years [...]
--- OUTSIDE RECORDS SUMMARY | 2025-01-05 10:59 | XMS_ITS | Encounter Summary ---
Author Organization [employer] ([place], [place], [place], [place]) Address [address] [place] [address] Care Team Providers Care Field Automobile Adjuster Name Role Phone Unavailable Primary Care Provider Unavailabl e Encounter Details Date Type Department Care Team (Late st Contact Info) Description 02/01/2019 Transcribed Document [facility] [place] [facility] [place] [address] ProviderEmilia MD [address] [place], [place] [phone] Social History Tobacco Use Types Packs/Day Years [...] On: 02/01/2019 13:11 EDT by MALIHA DOSHI, Grounds Foreman Primary Insurance Authorization Authorization and Policy Numbers : Insurance 1 Health Plan: [employer] Policy Number: [id number] Authorization Number: Insurance Primary Name : [employer] Policy Number: [id number] Authorization Status-Primary : Awaiting callback Authorized Service Begin Date-Primary : 01/29/2019 EDT Authorization Comments-Primary : Received voice mail on main line from Doris [facility] stating that pt OBS, not meeting for INPT and we need to send more clinical if we have any. ph# [phone] fx# [phone] Made Cayla De Jesus aware as she is following the patient today. Historical Authorization Comments-Primary : Comment 1: Per [facility] notes Notify Payer of Admission - InProgress - faxed clinicals via cerner. (MIRYAM KOTHARI RN 01/30/2019 13:46) MALIHA DOSHI, Grounds Foreman - 02/01/2019 13:11 EDT documented in this encounter Plan of Treatment Not on file documented as of this encounter Visit Diagnoses Not on filedocumented in this encounter
--- OUTSIDE RECORDS SUMMARY | 2025-01-05 10:59 | XMS_ITS | Encounter Summary ---
Author Organization [employer] ([place], [place], [place], [place]) Address [address] [place] [address] Care Team Providers Care Data Analytics Analyst Name Role Phone Unavailable Primary Care Provider Unavailabl e Encounter Details Date Type Department Care Team (Late st Contact Info) Description 02/02/2019 Transcribed Document [facility] [place] [facility] [place] [place] [address] ProviderEmilia MD [address] [place], [place] [phone] Social History Tobacco Use Types Packs/Day Years [...] On: 02/02/2019 12:04 EDT by ANNETTE ENCARNACION RN-Contact Lens Flashing Puncher Final Discharge Planning Discharge Arrangements : Patient [...] : Yes Discharge To Care Management : Home/Residential/Fpc or Self Care -01 ANNETTE ENCARNACION, RN-Contact Lens Flashing Puncher - 02/02/2019 12:04 EDT Final Narrative Note Final Narrative Note : pt discharge home with . appointment with coat examiner made on 02/04 at 0815, with ANIL Lopez. [address]. pt for dc with 70/30 insulin and [place] to f/u with pt's home rgiment of humalin and assistance with supplies and affordability. ANNETTE ENCARNACION, TONIO-Contact Lens Flashing Puncher - 02/02/2019 12:04 EDT documented in this encounter Plan of Treatment Not on file documented as of this encounter Visit Diagnoses Not on filedocumented in this encounter
--- OUTSIDE RECORDS SUMMARY | 2025-01-05 10:59 | XMS_ITS | Encounter Summary ---
Author Organization [employer] ([place], [place], [place], [place]) Address [address] [place] [address] Care Team Providers Care Restaurant Manager Name Role Phone Unavailable Primary Care Provider Unavailabl e Encounter Details Date Type Department Care Team (Late st Contact Info) Description 02/01/2019 Transcribed Document [facility] [place] Formerly [facility] [place] [address] ProviderEmilia MD [address] [place], [place] [id number] Social History Tobacco Use Types Packs/Day Years [...] Numbers : Insurance 1 Health Plan: [employer] Policy Number: [id number] Authorization Number: Insurance Primary Name : [employer] Policy Number: [id number] Authorization Status-Primary : Awaiting callback Authorized Service Begin Date-Primary : 01/29/2019 EDT Authorization Comments-Primary : rec'd call from Roque/caleb this am re: does not meet IP, did we want to change to OBS or have it routed to medical services coordinator? Pt had heart cath planned for today, asked him to wait for outcome of C. Cath unremarkable per cards note, discussed case w/ DMc who requests leave as IP and have it routed to med director. Call back to Roque/[facility] to request route to MD. Historical Authorization Comments-Primary : Comment 1: Received voice mail on main line from Doris hanson [facility] stating that pt OBS, not meeting for INPT and we need to send more clinical if we have any. # [phone] fx# [phone] Made Cayla De Jesus aware as she is following the patient today. (MALIHA DOSHI, Composition Mixer 02/01/2019 13:11) Comment 2: Per Star notes Notify Payer of Admission - InProgress - faxed clinicals via cerner. (MIRYAM KOTHARI RN 01/30/2019 13:46) CAYLA CHAU, RN-Utilization Review - 02/01/2019 14:35 EDT documented in this encounter Plan of Treatment Not on file documented as of this encounter Visit Diagnoses Not on filedocumented in this encounter
--- OUTSIDE RECORDS SUMMARY | 2025-01-05 10:59 | XMS_ITS | Encounter Summary ---
Author Organization [employer] ([place], [place], [place], [place]) Address [address] [place] [address] Care Team Providers Care Legal Aide Name Role Phone Unavailable Primary Care Provider Unavailabl e Encounter Details Date Type Department Care Team (Late st Contact Info) Description 02/01/2019 Transcribed Document [facility] [place] [facility] [place] [address] ProviderEmilia MD [address] [place], [place] [id number] Social History Tobacco Use Types Packs/Day Years [...] 377 Pamella Mckinley - 02/01/2019 20:57 EDT Electronically signed by Gonzales Van Conversion Dowel Setting Machine Operator Cerner at 10/22/2022 11:15 PM CDT documented in this encounter Plan of Treatment Not on file documented as of this encounter Visit Diagnoses Not on filedocumented in this encounter
== END 2025-01-03 23:59 | disposition home or self-care (01) ==
LOC: LAB.DROPOF 01-05 10:55
PROVIDERS: PCP Family Medicine; Visit Provider Family Medicine
DX: D64.9 Anemia, unspecified (principal); E11.9 Type 2 diabetes mellitus without complications
CPT/HCPCS: 80053; 80061; 82043; 82570; 82728; 83036; 83540; 83550; 85025

== ENCOUNTER 2025-01-20 10:57 | Emergency (ER) | payer MEDICARE, SELFPAY ==
[2025-01-20] VITALS (8 sets, daily range): BP systolic 137–181; BP diastolic 67–86; PULSE 69–87; RESP 16–19; TEMP 36.7–36.8; O2SAT 95–99; BMI 32.5
--- NOTE | 2025-01-20 11:12 | XR_ITS ---
FINAL REPORT CLINICAL HISTORY: SOB, cough COMPARISON: 09/24/2024 FINDINGS: CHEST 2 VIEWS There is mild atelectasis in the left lung base. There is a small left pleural effusion. The right lung is clear. The patient is status post CABG. The cardiac silhouette is unremarkable. IMPRESSION: Mild left basilar atelectasis with small left pleural effusion. Reviewed, Interpreted and Dictated by Mauricio Lima MD Transcribed by Brittney Valenzuela Authenticated and [facility]
[2025-01-20 11:17] LABS: Hematocrit 33.4 % (42.0-52.0); Hemoglobin 10.2 g/dL (14.1-18.0); Immature Granulocytes % 0.2 %; Mean Corpuscular HGB Conc 30.5 g/dL (31.8-35.4); Mean Corpuscular Hemoglobin 28.4 pg (27.0-31.2); Mean Corpuscular Volume 93.0 fl (80-94); Nucleated Red Blood Cells % 0 %; Platelet Count 213 K/mm3 (142-424); Red Blood Count 3.59 M/mm3 (4.60-6.20); Red Cell Distribution Width-SD 60.5 fL; White Blood Count 10.9 K/mm3 (4.8-10.8)
--- NOTE | 2025-01-20 11:19 | ED_ITS ---
Discharge Plan Disposition Patient Disposition: Home, Self-Care Prescriptions Prescriptions: New amoxicillin-pot clavulanate 875-125 mg tablet 1 tab PO BID 7 Days Qty: 14 0RF azithromycin 250 mg tablet 250 mg PO DAILY 7 Days Qty: 7 0RF furosemide [Lasix] 20 mg tablet 20 mg PO DAILY Qty: 7 0RF potassium chloride 10 mEq capsule, extended release 20 meq PO DAILY Qty: 14 0RF No Action hydrocodone-acetaminophen 5-325 mg tablet 1 tab PO Q12H PRN (Reason: pain) Qty: 60 0RF (DME) blood-glucose meter Misc See Rx Instructions .Route Qty: 1 0RF Rx Instructions: As directed (DME) Blood Glucose Test Strip See Rx Instructions .Route Qty: 50 12RF Rx Instructions: As directed trazodone 150 mg tablet 150 mg PO HS PRN (Reason: sleep) Qty: 90 3RF ferrous sulfate [Iron (ferrous sulfate)] 325 mg (65 mg iron) tablet 325 mg PO DAILY Qty: 90 3RF levothyroxine 75 mcg tablet See Rx Instructions .ROUTE .COMPLEX Qty: 90 1RF Dose Instruction: Take 1 tablet by mouth once daily Rx Instructions: Take 1 tablet by mouth once daily doxazosin 4 mg tablet 4 mg PO DAILY Qty: 90 1RF atorvastatin 80 mg tablet See Rx Instructions .ROUTE .COMPLEX Qty: 90 1RF Dose Instruction: Take 1 tablet by mouth once daily Rx Instructions: Take 1 tablet by mouth once daily lisinopril 2.5 mg tablet See Rx Instructions .ROUTE .COMPLEX Qty: 90 1RF Dose Instruction: Take 1 tablet by mouth once daily Rx Instructions: Take 1 tablet by mouth once daily omeprazole 40 mg capsule,delayed release(DR/EC) See Rx Instructions .ROUTE .COMPLEX Qty: 90 4RF Dose Instruction: Take 1 capsule by mouth once daily Rx Instructions: Take 1 capsule by mouth once daily carvedilol 12.5 mg tablet See Rx Instructions .ROUTE .COMPLEX Qty: 180 3RF Dose Instruction: TAKE 1 TABLET TWICE DAILY Rx Instructions: TAKE 1 TABLET TWICE DAILY clopidogrel 75 mg tablet See Rx Instructions .ROUTE .COMPLEX Qty: 90 3RF Dose Instruction: TAKE 1 TABLET EVERY DAY Rx Instructions: TAKE 1 TABLET EVERY DAY finasteride 5 mg tablet See Rx Instructions .ROUTE .COMPLEX Qty: 90 2RF Dose Instruction: Take 1 tablet by mouth once daily Rx Instructions: Take 1 tablet by mouth once daily duloxetine 20 mg capsule,delayed release(DR/EC) 20 mg PO DAILY 30 Days Qty: 30 2RF Referrals Follow up/Referrals: Reuben Haro APRN [Primary Care Provider, [facility]] - See instructions Activity Restrictions/Add. Instructions Additional Instructions/Restrictions: Call Dr. Carver's office to set up an appointment this week for follow-up for cardiology. You are being prescribed Lasix, a diuretic, as well as potassium supplementation. You are also being prescribed antibiotics, Augmentin and azithromycin for pneumonia. Take these as prescribed. I also encourage you to follow-up with your primary care physician later this week for reassessment. If you develop any new or worsening symptoms, or if you become concerned for your health for any reason, return to the emergency department for evaluation. Clinical Impressions Clinical Impression: Pneumonia, Elevated brain natriuretic peptide (BNP) level Print Language Print Language: British Discharge ED Provider: Jerry Milian Adult HPI General Chief complaint: Shortness of Breath/Dyspnea Stated complaint: SOA, congestion x 3 days Time Seen by Provider: 01/20/25 11:07 Mode of Arrival: Wheelchair Source of Information: Patient Description of Symptoms (Recalled from ER Triage Doc. by RN): patient states he has had a cough sore throat and shortness of breath for a couple of days History of Present Illness HPI narrative: Johnathan Parham is a 69-year-old man with a history of CVA, heart failure, pneumonia, hypertension, diabetes mellitus, hyperlipidemia, hypothyroidism, CKD who presents to the emergency department for complaints of cough and shortness of breath as well as a sore throat. Patient states that 2 days ago, he developed a sore throat and has since developed a productive cough with chest pain only with coughing and deep breathing. He denies any fevers. He does not know what color his sputum is. He denies any history of COPD. He reports chronic lower extremity swelling that is unchanged from baseline. He reports having an oxygen level at home of 91%. Related Data Previous Rx's ?Medication ?Instructions ?Recorded doxazosin 4 mg tablet 4 mg PO DAILY #90 tabs 03/17 atorvastatin 80 mg tablet See Rx Instructions .Route 0 07/20/24 .COMPLEX #90 tabs lisinopril 2.5 mg tablet See Rx Instructions .Route 0 07/20/24 .COMPLEX #90 tabs levothyroxine 75 mcg tablet See Rx Instructions .Route 08/09/24 .COMPLEX #90 tabs omeprazole 40 mg capsule,delayed See Rx Instructions . Route 11/23/24 release .COMPLEX #90 caps carvedilol 12.5 mg tablet See Rx Instructions .Route 0 12/17/24 .COMPLEX #180 tabs clopidogrel 75 mg tablet See Rx Instructions .Route 0 12/20/24 .COMPLEX #90 tabs finasteride 5 mg tablet See Rx Instructions .Route 0 12/30/24 .COMPLEX #90 tabs blood sugar diagnostic (Blood #50 ea 01/03/25 Glucose Test strips) blood-glucose meter #1 ea 01/03/25 hydrocodone 5 mg-acetaminophen 325 1 tab PO Q12H PRN p ain #60 tabs 01/03/25 mg tablet trazodone 150 mg tablet 150 mg PO HS PRN sleep #90 t abs 01/03/25 ferrous sulfate 325 mg (65 mg 325 mg PO DAILY #90 tabs 01/04/25 iron) tablet (Iron (ferrous sulfate)) duloxetine 20 mg capsule,delayed 20 mg PO DAILY 30 day s #30 caps 01/14/25 release amoxicillin 875 mg-potassium 1 tab PO BID 7 days #14 t abs 01/20/25 clavulanate 125 mg tablet azithromycin 250 mg tablet 250 mg PO DAILY 7 days #7 t abs 01/20/25 furosemide 20 mg tablet (Lasix) 20 mg PO DAILY #7 tabs 01/20/25 potassium chloride 10 mEq 20 meq (2 x 10 mEq) PO DAILY #14 01/20/25 capsule,extended release caps Allergies Allergy/AdvReac Type Severity Reaction Status Date / Time ertapenem Allergy Severe Hallucinati Verified 01/03/25 13:08 [facility] Disclaimer: The information contained in this section may have been updated after the patient was seen, as this information can be updated by other users. Medical History (Updated 01/20/25 @ 13:59 by Jerry Milian MD) CVA (cerebral vascular accident) Screening for colon cancer History of stent insertion of renal artery Septic arthritis of knee, left Renal mass, left Left adrenal mass Renal mass, right Unsteadiness on feet DANY (obstructive sleep apnea) LUKASZ (renal artery stenosis) Right sided weakness Angina pectoris Hearing loss Cataract History of transient ischemic attack (TIA) Cyst of soft tissue Carotid artery stenosis Left hip pain Neuropathy Sciatic leg pain Surgical History (Updated 01/04/25 @ 09:43 by Estrada Addison MD) Hx of CABG History of hernia repair Hx of heart artery stent History of cholecystectomy History of colonoscopy Family History Other Family history of acute congestive heart failure Social History Smoking Status: Never smoker alcohol intake: never substance use type: denies use current occupational status: other Travel in the last 8 weeks?: None household members: family housing: house current occupational exposures/hazards: No caffeine: Yes Have you lived/traveled outside US in past 30 days?: No Contact w/someone who lives/traveled outside US past 30 days?: No Exposure to someone with infectious disease in past 14 days?: No Do you have a fever (greater than 100.4 F or 38 C)?: No Have you tested positive for COVID-19?: No Exposed to someone with COVID-19 in past 14 days?: No Do you have a sore throat?: No Do you have a cough?: No Do you have any weakness?: No Do you have any diarrhea?: No Are you experiencing any unusual bleeding?: No Do you have any muscle aches/pain?: No Do you have any abdominal pain?: No Are you experiencing loss of taste or smell?: No Other Medical History Have you received the Flu Vaccine for this season: No Have you received the Pneumonia Vaccine: No ROS Obtained: Yes Systems reviewed as appropriate & no additional complaints except as documented Physical Exam General General appearance: alert and in no apparent distress Head Head exam: atraumatic Eye Eye exam: Present normal appearance ENT ENT exam: Present normal external ear exam Neck Neck exam: Present full ROM Chest Chest inspection: Present symmetric chest wall rise Respiratory Respiratory exam: Present normal lung sounds bilaterally and other (few crackles to the left base); Absent respiratory distress, wheezes or stridor Cardiovascular Cardiovascular exam: Present regular rate and normal rhythm Abdominal Exam Abdominal exam: Present soft; Absent tenderness or guarding exam: Present deferred Extremities Exam Extremities exam: Present normal inspection and edema (mild pitting edema to bilateral lower extremities) Back Exam Back exam: Present normal inspection Neurological Exam Neurological exam: Present alert and oriented X3 Psychiatric Psychiatric exam: Present normal affect Skin Skin exam: Present warm and dry Medical Decision Making Medical Records Screening: Per USPSTF and CDC recommendations, given the prevalence of disease in our region, it is our hospital?s policy to screen for HIV and viral Hepatitis for all patients aged 18 and over and those with ongoing risk factors. Harman Inquiry Pt receiving controlled substance: No Vital Signs: 01/20/25 11:04 01/20/25 11:05 01/20/25 11:30 Temperature 98.3 F Temperature Source Oral Pulse Rate 84 81 Pulse Rate [Right Radial] 84 Respiratory Rate 19 Blood Pressure 159/77 H 150/71 H Blood Pressure [Right Arm] 159/77 H Blood Pressure Mean 97 Blood Pressure Mean [Right Arm] 104 Blood Pressure Source [Right Arm] Automatic Cuff Blood Pressure Position [Right Arm] Supine 02 Sat by Pulse Oximetry 95 95 97 Oxygen Delivery Method Room Air 01/20/25 12:00 01/20/25 12:30 01/20/25 13:00 Temperature Temperature Source Pulse Rate 77 70 69 Pulse Rate [Right Radial] Respiratory Rate Blood Pressure 157/76 H 164/67 H 181/83 H Blood Pressure [Right Arm] Blood Pressure Mean Blood Pressure Mean [Right Arm] Blood Pressure Source [Right Arm] Blood Pressure Position [Right Arm] 02 Sat by Pulse Oximetry 97 97 96 Oxygen Delivery Method Room Air Room Air 01/20/25 13:31 Temperature Temperature Source Pulse Rate 73 Pulse Rate [Right Radial] Respiratory Rate Blood Pressure 137/68 Blood Pressure [Right Arm] Blood Pressure Mean Blood Pressure Mean [Right Arm] Blood Pressure Source [Right Arm] Blood Pressure Position [Right Arm] 02 Sat by Pulse Oximetry 96 Oxygen Delivery Method Room Air Lab Data Lab Results 01/20/25 11:06: WBC 10.9 H, RBC 3.59 L, Hgb 10.2 L, Hct 33.4 L, MCV 93.0, MCH 28.4, MCHC 30.5 L, RDW 17.6 H, Plt Count 213, MPV 10.1, Neut % (Auto) 81.5 H, Lymph % (Auto) 10.7, [place] % (Auto) 5.2, Eos % (Auto) 1.9, Baso % (Auto) 0.5, N eut # (Auto) 8.9 H, Lymph # (Auto) 1.2, [place] # (Auto) 0.6, Eos # (Auto) 0.2, Baso # (Auto) 0.1, D-Dimer 1.07 H, Sodium 138, Potassium 4.6, Chloride 100, Carbon Dioxide 26, Anion Gap 16.6 H, BUN 19, Creatinine 1.80 H, Estimated Creat Clear 61, Estimated GFR 38 L, Est GFR ( Amer) 46 L, Glucose 188 H, Calcium 9.2, Magnesium 1.7, Total Bilirubin 1.2, AST 23, ALT 13, Alkaline Phosphatase 97, Troponin I < 0.01, C-Reactive Protein 36.5 H, NT-Pro-B Natriuret Pep 4110 H, Total Protein 6.9, Albumin 3.8, Globulin 3.1, Albumin/Globulin Ratio 1.2 01/20/25 13:46: Troponin I < 0.01 01/20/25 11:06 01/20/25 11:06 Orders (Tests/Meds): ED MEDICATIONS Discontinued Medications Generic Name Dose Route Start Last Admin Trade Name Arnoldq PRN Reason Stop Dose Admin Amoxicillin/Clavulanate Potassium 1 each 01/20/25 13:14 01/20/25 13:36 Amoxicillin/Clavulanate Potassium 875/125mg Tablet PO 01/20/25 13:15 1 each ONCE ONE Administration Furosemide 20 mg 01/20/25 13:45 01/20/25 13:39 Furosemide 40 Mg Tablet PO 01/20/25 13:46 20 mg ONCE ONE Administration Azithromycin 500 mg/ Sodium 250 mls @ 250 mls/hr 01/20/25 13:15 01/20/25 13:38 Chloride IV 01/20/25 13:16 250 mls/hr ONCE ONE Administration ORDERS Category Date Time Status CXR 2 view (NOT portable) [XR chest 2V] Stat Exams 01/20/25 11:12 Completed POCUS Point of Care (ER Only) Stat Exams 01/20/25 12:20 Completed BNP [NT Pro Brain Natriuretic Pep.] Stat Lab 01/20/25 11:06 Completed CBC w/Auto Diff [Complete Blood Count Auto Diff] Stat Lab 01/20/25 11:06 Completed CMP [Comprehensive Metabolic Panel] Stat Lab 01/20/25 11:06 Completed CRP [C-Reactive Protein] Stat Lab 01/20/25 11:06 Completed D-Dimer Stat Lab 01/20/25 11:06 Completed Full Resp Panel w/COVID ([facility]) Routine Lab 01/20/25 11:20 Received Magnesium Stat Lab 01/20/25 11:06 Completed Troponin I Q3H Lab 01/20/25 13:46 Completed Troponin I Q3H Lab 01/20/25 17:15 Ordered Troponin I Stat Lab 01/20/25 11:06 Completed ECG Data Tracing #1: I reviewed this ECG and interpreted as documented below: Normal sinus rhythm with right bundle branch block. Mild ST depression in V4 but no other significant ST depression or inverted T waves. No ST elevations. QTc borderline prolonged at 470 Medical Decision Narrative: Johnathan Parham is a 69-year-old man with a history of CVA, heart failure, pneumonia, hypertension, diabetes mellitus, hyperlipidemia, hypothyroidism, CKD who presents to the emergency department for complaints of cough and shortness of breath as well as a sore throat. Patient states that 2 days ago, he developed a sore throat and has since developed a productive cough with chest pain only with coughing and deep breathing. He denies any fevers. He does not know what color his sputum is. He denies any history of COPD. He reports chronic lower extremity swelling that is unchanged from baseline. He reports having an oxygen level at home of 91%. On arrival, patient is mildly hypertensive with blood pressure 159/77, heart rate 84 bpm, oxygen saturation 95% on room air. Afebrile. Physical exam, as stated above, reveals a nontoxic- appearing male in no acute distress. He has some mild crackles at the left base but cardiopulmonary exam is otherwise unremarkable. Abdomen soft, nontender nondistended. He does have some pitting edema to the distal bilateral lower extremities. Patient did state that he had previously been diagnosed with a blood clot in his right arm and was on blood thinners for some time, however recently was told that he no longer had the blood clot and is no longer taking blood thinners. Differential diagnosis includes, but is not limited to: Pneumonia, CHF exacerbation, pleural effusion, pneumothorax, ACS, pericarditis, volume overload, pulmonary embolism, Among others. The most morbid conditions were considered and workup was based on these. Workup in the emerged part included: 2 view chest x-ray, EKG, CBC, CMP, D-dimer, magnesium level, troponin, CRP, BNP EKG with mild ST depression in V4 but no inverted T waves or other ST elevation or depression. See interpretation above. Laboratory studies interpreted by me personally. Patient has a leukocytosis with white blood cell count of 10.9 with neutrophilia, stable hemoglobin low at 10.2/hematocrit 33.4. D-dimer of 1.07, however when adjusted for age, low concern for VTE. Anion gap is 16.6 but CMP otherwise unremarkable nonactionable. Patient's creatinine today is 1.8 (Which appears close to patient's baseline, however creatinine appears to be somewhat variable over his history. Most recently was 1.4). BUN is normal at 19. Glucose of 188. Creatinine clearance of 61. Liver enzymes unremarkable with normal bilirubin of 1.2. Initial troponin less than 0.01, will get repeat 3-hour troponin. CRP is elevated at 36.5. BNP is elevated above baseline at 4110. These levels have also been variable, however this is elevated beyond previous levels. A [id number] cardiac and lung ultrasound was performed by me personally to evaluate for any B-lines or worsening cardiac dysfunction no B-lines were appreciated. left ventricular ejection fraction appears does appear mildly reduced but no focal wall motion abnormalities. No pericardial effusion. No B- lines were present on lung ultrasound. However see procedure note for details. 2 view chest x-ray interpreted by me personally. Patient has small opacity in the left base, could represent atelectasis or pleural effusion or evidence of infection. Patient was administered oral Augmentin and IV azithromycin here in the emergency department due to concern for pneumonia given his elevated white blood cell count, CRP in the setting of a productive cough with chest x-ray findings as mentioned above. Will also give dose of oral Lasix, 20 mg, for patient's elevated BNP and mild pleural effusion. This plan was discussed with the patient and he was in agreement with this plan. He was encouraged to follow-up with his primary care physician as well as cardiology. Return precautions were given. All questions were answered. He was then discharged from the emergency department in stable condition peer Procedures Limited Ultrasound Interpretation:: Limited cardiac ultrasound Indication: Shortness of breath Identified cardiac views: -Cardiac parasternal long axis -Cardiac parasternal short axis -Cardiac apical four-chamber -Cardiac subxiphoid Findings: -Cardiac activity present with no focal wall motion abnormalities, left ventricular ejection fraction does appear mildly reduced -Wall motion grossly normal -Pericardial effusion absent -Right heart strain absent Impression: - From above Images were saved to permanent archive The study was technically adequate CPT: 08129 This study was performed by me, and I personally interpreted all images/videos. Based on my clinical judgement, these images were adequate and did not d/did not necessitate further imaging. Limited lung ultrasound A focused ultrasound exam of the pleural spaces was performed to evaluate for pneumothorax, pulmonary edema, pleural effusion and/or consolidation. The ultrasound was performed with the following indications, as noted in the H&P: Dyspnea, chest pain Identified structures: RIGHT and/or LEFT thoracic cavities were examined. Findings: Lung sliding: - Left present - Right present B-lines: - Left absent - Right absent Pleural effusion: - Left absent - Right absent Consolidation: - Left absent - Right absent Impression: - Pneumothorax absent - Pleural effusion absent - B-lines absent - Consolidation absent Images were saved to permanent archive The study was technically adequate CPT 58966-87 This study was performed by ga, and I personally interpreted all images/videos. Based on my clinical judgement, these images were adequate uate and did not t necessitate further imaging. Critical Care Critical Care Time Critical Care Time: No
--- NOTE | 2025-01-20 11:19 | ECG_ITS ---
APPROVED REPORT Exam: Resting ECG HR:77 bpm ECG Measurements Heart Rate 77 AXES CO 175 P 29 QRSd 151 QRS 137 QT 438 T 9 QTc 470 Conclusion SINUS RHYTHM RIGHT BUNDLE BRANCH BLOCK [120+ ms QRS DURATION, UPRIGHT V1, 40+ ms S IN I/aVL/V4/V5/V6] LEFT POSTERIOR FASCICULAR BLOCK [QRS AXIS > 109, INFERIOR Q] ABNORMAL ECG UNCONFIRMED REPORT Normal sinus rhythm. Right bundle branch block. No ST elevation or depression Electronically signed by : LILIANA ARAUJO, 01/21/2025 07:06:47
--- OUTSIDE RECORDS SUMMARY | 2025-01-20 11:20 | XMS_ITS | Encounter Summary ---
Author Organization [employer] ([place], [place], [place], [place]) Address [address] [place] [address] Care Team Providers Care Blister Packaging Machine Operator Name Role Phone Unavailable Primary Care Provider Unavailabl e Encounter Details Date Type Department Care Team (Late st Contact Info) Description 01/31/2019 Transcribed Document [facility] [place] [facility] [place] [address] ProviderEmilia MD [address] [place], [place] [id number] Social History Tobacco Use Types Packs/Day Years Used Date Smoking Tobacco: Never Assessed Sex and Gender Information Value Date Recorded Sex Assigned at Not on file Legal Sex Male 5:19 PM CDT Gender Identity Not on file Sexual Orientation Not on file documented as of this encounter Miscellaneous Notes * Cerner Conversion Note - Historical ProviderMD - 01/31/2019 2:00 AM CDT Corporate Operations Compliance Manager Details Entered On: 01/31/2019 2:33 EDT Performed [...]
--- OUTSIDE RECORDS SUMMARY | 2025-01-20 11:20 | XMS_ITS | Encounter Summary ---
Author Organization [employer] ([place], [place], [place], [place]) Address [address] [place] [address] Care Team Providers Care Web Press Operator Assistant Name Role Phone Unavailable Primary Care Provider Unavailabl e Encounter Details Date Type Department Care Team (Late st Contact Info) Description 01/29/2019 Transcribed Document [facility] [place] [facility] [place] [address] ProviderEmilia MD [address] [place], [place] [address] Social History Tobacco Use Types Packs/Day Years [...]
--- OUTSIDE RECORDS SUMMARY | 2025-01-20 11:20 | XMS_ITS | Clinical Summary ---
Author Organization [employer] [facility] ([place], [place], [place], [place]) Address [address] [place] [address] Care Team Providers Care Identification And Records Commander Name Role Phone Unavailable Primary Care Provider [...]
--- OUTSIDE RECORDS SUMMARY | 2025-01-20 11:20 | XMS_ITS | Encounter Summary ---
Author Organization [employer] ([place], [place], [place], [place]) Address [address] [place] [address] Care Team Providers Care Panel Machine Tender Name Role Phone Unavailable Primary Care Provider Unavailabl e Encounter Details Date Type Department Care Team (Late st Contact Info) Description 01/30/2019 Transcribed Document [facility] Cardiology [address] [place] [address] [place] [address] [place] [address] [address] [place] [address] Social History Tobacco Use Types Packs/Day Years [...] and diabetes mellitus type 2 presented to [facility] with complaints of progressive chest pain with associated palpitations shortness of air and cough via [facility]. He unerwent stress testing at their [...] CKD (chronic kidney disease) / SNOMED CT 4820929579 / Confirmed Diabetes mellitus / SNOMED CT 842240350 / Confirmed GERD (gastroesophageal reflux disease) / SNOMED CT 256954599 / Confirmed EEK (hard of hearing) / SNOMED CT 33158842 / Confirmed History of obstructive sleep apnea / IMO [id number] / Confirmed Hypertension / SNOMED CT 5347705209 / Confirmed Inactive: Arrhythmia / SNOMED CT 8043020187, Active Problems (6) CKD (chronic kidney disease) Diabetes mellitus GERD (gastroesophageal reflux disease) History of obstructive sleep apnea EEK (hard of hearing) Hypertension Histories No education [...] Procedure history: CORONARY ARTERY BYPASS GRAFT. CHOLECYSTECTOMY (95910). CATARACT REMOVAL INSERTION OF LENS (82831). Right knee replacement. Hernia Repair. Carotid Endardectomy. [...] (Current Encounter/Past 24 Hours) ProBNP 234 pg/mL NV 01/29/2019 23:10 Blood Gases (Current Encounter/Past 24 [...] IV hydration DC [place] I Plan for [facility] once renal function stable. Consider nephrology evaluation documented in this encounter Plan of Treatment Not on file documented as of this encounter Visit Diagnoses Not on filedocumented in this encounter
--- OUTSIDE RECORDS SUMMARY | 2025-01-20 11:20 | XMS_ITS | Clinical Summary ---
Author Organization [facility] Address [address] [place] [address] Care Team Providers Care Neurology Hospitalist Name Role Phone Pcp, No Primary Care Provider Unavailabl e Addison Rizzo DO Unavailable [phone] Allergies Active Allergy Reactions Criticality Noted [...] if needed for pain. Active HYDROcodone-aceta minophen (Orange) 5-325 MG tablet Take 1 tablet (5 [...] (08/22/2021): Added automatically from request for surgery [id number] Calculus of gallbladder and bile duct 12/27/2013 [...] any time in the past 12 m [facility], were you homeless or living in a senior care (including now)? No 06/25/2024 CAGE ASSESSMENT Answer [...] drink first t alyx in the morning (EYE-WHEEL SETTER) to steady your nerves or to get rid of a hangover? 0 06/25/2024 CAGE Questionnaire Score 0 024 Utilities Answer Date Recorded In the past 12 months has th e [employer], gas, oil, or water [employer] threatened to shut off services in your [...] Wellness (AWV) 1955 UKY-/Child/Adol SDOH Screenings 1955 [id number]-31 Vaccine (#1) 1962 Diabetes: Dental Exam 1967 [...] this topic Medical Devices Implanted Type Area Shoulder Boner Device Identifier Shelf Expiration Date Model / Serial / Lot Embolic Trufill 1 Gm N Bca Liq - [id number] Implanted:Qty: 1 on 05/06/2023 by Abdoulaye James MD at [facility] [employer] [facility]-[id number] 08/06/2024 [id number] / / [id number] Vip Vascular Closure Device 6 Fr - [id number] Implanted:Qty: 1 on 05/06/2023 by Abdoulaye James MD at [facility] [employer]-[id number] 12/12/2023 [id number] / / [id number] Puraply Am 6x9 54 Sq Cm - [id number] Implanted:Qty: 1 on 03/16/2024 by Syed Jefferson MD at [facility] [employer]-[id number] 01/03/2026 PUR[employer]LY[employer]ro Health 6X9 / / [id number] 1C Procedures Procedure Name Priority Date/Time Associated Diagnosis Comments HEMOGLOBIN A1C Routine 06/25/2024 3:24 AM EST HEPATITIS C ANTIBODY - ED W/REFLEX TO HCV QUANT PCR STAT 06/24/2024 11:48 AM EST from Last 3 Months or Most Recently Relevant to Health Maintenance Results * Hemoglobin A1c (06/25/2024 3:24 AM EST) Hemoglobin A1c 4.8 <5.7 % 06/25/2024 3:52 AM EST [facility] Blood Venous blood specimen / Unknown Venipuncture / Unknown 06/25/2024 3:24 AM EST 06/25/2024 3:34 AM EST Narrative [facility] - 06/25/2024 3:52 AM EST HA1C Interpretive Data: Diagnosis of Diabetes: Diabetic > or = 6.5% Pre-diabetic 5.7 to 6.4% Non-diabetic < or = 5.6% Glycemic Targets for Type I and Type II Diabetics: Non- Adults <7.0% Adults <6.0% Children and Adolescents <7.5% Source: [place] [employer]. Standards of medical care in diabetes,2017. Diabetes Care.2017:40 (suppl 1):S1-S135. HbA1c assay performed by an ion-exchange chromatography method that is certified traceable to the DCCT. Huang Hubbard MD LAB BLOOD ORDERABLES Final Re sult [facility] [address] [place] [address] * Hepatitis C Antibody - ED (06/24/2024 11:48 AM EST) Hepatitis C Antibody Negative Negative 06/24/2024 1:02 PM EST [facility] Blood Venous blood specimen / Unknown Venipuncture / Unknown 06/24/2024 11:48 AM EST 06/24/2024 12:16 PM EST us Craig MA LAB BLOOD ORDERABLES Final Res ult [facility] [address] [place] [address] from Last 3 Months or Most Recently [...] 11/05/2023 06/29/2024 C. difficile 07/05/2024 07/05/2024 Insurance [facility] MEDIC[facility] Advance Directives * Full Code [...] Patient has decision-making capacity? Yes Care Teams Neurology Hospitalist Relationship Specialty Start Date End Date Pcp, No [address] [place] [address] PCP - General Family Medicine 06/24/24 Addison Rizzo DO [address] [place] [address] 06/24/24
--- OUTSIDE RECORDS SUMMARY | 2025-01-20 11:20 | XMS_ITS | Encounter Summary ---
Author Organization [employer] ([place], [place], [place], [place]) Address [address] [place] [address] Care Team Providers Care Fitting Supervisor Name Role Phone Unavailable Primary Care Provider Unavailabl e Encounter Details Date Type Department Care Team (Late st Contact Info) Description 05/18/2019 Transcribed Document [facility] [place] [facility] [place] [address] ProviderEmilia MD [address] [place], [place] [id number] Social History Tobacco Use Types Packs/Day Years Used Date Smoking Tobacco: Never Assessed Sex and Gender Information Value Date Recorded Sex Assigned at Not on file Legal Sex Male 5:19 PM CDT Gender Identity Not on file Sexual Orientation Not on file documented as of this encounter Miscellaneous Notes * Cerner Conversion Note - Emilia ProviderMD - 05/18/2019 1:36 PM STEEL PLATE CAULKER ED Assessment Entered On: 05/18/2019 14:43 EST [...] Communication Barrier : None Primary Language : Sri Lankan Any Spiritual/Cultural Needs or Requests : No [...] Rhythm : Regular Nail Bed Color : [place] Chest Pain : Yes ERICA MONROY RN [...]
--- OUTSIDE RECORDS SUMMARY | 2025-01-20 11:20 | XMS_ITS | Encounter Summary ---
Author Organization [facility] Address [address] [place] [address] Care Team Providers Care Electroplater Helper Name Role Phone Bridgette Szymanski DO Primary Care Provider Elaina Carvalho Primary Care Provider Addison Rizzo DO Primary Care Provider Pcp, No Primary Care Provider Unavailabl e Addison Rizzo DO Unavailable [phone] Brooklyn Redmond LPN Unavailable Unavailable Encounter Details Date Type Department Care Team (Late st Contact Info) Description 05/06/2023 Lab Requisition [facility] [address] [place] [address] Estefania Keller MD [address] [place] [address] Unspecified general medical examination Social [...] place to sleep or slept in a correction (including now)? No 05/08/2023 Utilities Answer Date Recorded In the past 12 months has th e [employer], gas, oil, or water [employer] threatened to shut off services in your [...] Name Priority Date/Time Associated Diagnosis Comments SOURCE, [facility] HCV QUANT PCR Routine 05/06/2023 11:10 AM EDT Unspecified general medical examination HC 418 HIV-1 AG W/COMB 1&2 AB Routine 05/06/2023 11:10 AM EDT Unspecified general medical examination SOURCE, [facility] HEPATITIS B S AG Routine 05/06/2023 11:10 AM EDT Unspecified general medical examination documented in this encounter Results * Source, [facility] HCV Quant PCR (05/06/2023 11:10 AM EDT) Hepatitis C Virus (HCV) Quantitative Interpretation Not Detected Not Detected . 05/08/2023 5:06 AM EDT [facility] Hepatitis C Virus (HCV) Quantitative Viral Load Log Result <1.08 <1.08 log10 IU/mL 05/08/2023 5:06 AM EDT [facility] Hepatitis C Virus (HCV) Quantitative IU/mL Result <12 <12 IU/mL 05/08/2023 5:06 AM EDT [facility] Blood Venous blood specimen / Unknown [...] ORDERABLES Final Re sult Performing Organization Address [facility] de Phone Number [facility] [address] [place] [address] * Source, [facility] Hepatitis B S AG (05/06/2023 11:10 AM EDT) Pathologist [facility] Hepatitis B Surf Antigen Negative Negative 05/06/2023 12:44 PM EDT [facility] Blood Venous blood specimen / Unknown 05/06/2023 11:10 AM EDT 05/06/2023 11:38 AM EDT Estefania Keller MD LAB BLOOD ORDERABLES Final Re sult Performing Organization Address [facility] Phone Number [facility] [address] [place] [address] * Source, [facility] HIV AB/AG w/Reflex to HIV1/2 Antibody Differentiation (05/06/2023 11:10 AM EDT) [facility] HIV 1 & 2 Antibody/Anti gen Screen Non Reactive Non Reactive 05/06/2023 12:44 PM EDT [facility] Blood Venous blood specimen / Unknown 05/06/2023 11:10 AM EDT 05/06/2023 11:38 AM EDT Estefania Keller MD LAB BLOOD ORDERABLES Final Re sult Performing Organization Address [facility] de Phone Number [facility] [address] [place] [address] documented in this encounter Visit Diagnoses Diagnosis [...] documented as of this encounter Care Teams Electroplater Helper Relationship Specialty Start Date End Date Bridgette Szymanski DO [address] [place] [address] PCP - General 11/17/20 05/07/23 Elaina Carvalho PA [address] [place] [address] PCP - General 05/08/23 04/25/24 Addison Rizzo DO [address] [place] [address] PCP - General 04/26/24 06/23/24 Pcp, [place] [address] PCP - General Family Medicine 06/24/24 Addison Rizzo DO [address] [place] [address] 06/24/24 Brooklyn Redmond LPN [employer] [place] [address] TCM Nurse 06/23/24 07/23/24 documented as of this encounter
--- OUTSIDE RECORDS SUMMARY | 2025-01-20 11:20 | XMS_ITS | Encounter Summary ---
Author Organization [facility] Address [address] [place] [address] Care Team Providers Care Vehicle Service Agent Name Role Phone Addison Rizzo DO Primary Care Provider [phone] Pcp, No Primary Care Provider Unavailabl e Addison Rizzo DO Unavailable [phone] Brooklyn Redmond LPN Unavailable Unavailable Encounter Details Date Type Department Care Team (Late st Contact Info) Description 06/12/2024 Lab Requisition [facility] [address] [place] [address] Julien Matthews [address] [place] [address] Encounter for general adult medical [...] place to sleep or slept in a alf (including now)? No 04/26/2024 PHQ-9 Answer Date [...] any time in the past 12 m [facility], were you homeless or living in a alf (including now)? No 06/14/2024 CAGE ASSESSMENT Answer [...] drink first t alyx in the morning (EYE-ELEMENTARY SCHOOL COUNSELOR) to steady your nerves or to get rid of a hangover? 0 09/05/2023 CAGE Questionnaire Score 0 024 Utilities Answer Date Recorded In the past 12 months has [employer], [employer], oil, or water [employer] threatened to shut off services in your [...] LAB HEMATOLOGY METHOD 06/14/2024 5:35 PM EST [facility] Specimen Source, Body Fluid Synovial Fluid (type in source) LAB HEMATOLOGY METHOD 06/14/2024 5:35 PM EST [facility] Clinical Diagnosis, Body Fluid Pyogenic arthritis of left knee joint LAB HEMATOLOGY METHOD 06/14/2024 5:35 PM EST [facility] Interpretation , Body Fluid Acute inflammatory cells No pathogenic organisms seen Correlation with microbiology studies recommended Moderate blood A resident was involved in the service. I attest I examined the relevant preparations for the specimens and confirmed the diagnosis or interpretation. 06/14/2024 5:35 PM EST [facility] Pathologist Signature, Body Fluid 06/14/2024 5:35 PM EST [facility] Comment:Reviewed by: Salome thakur MD LAB CP ASR DISCLAIMER Yes 06/14/2024 5:35 PM EST [facility] Joint Fluid Synovial structure / Unknown 06/12/2024 5:00 PM EST 06/13/2024 5:02 AM EST Julien Matthews LAB BODY FLUIDS AND STOOLS ORDER VANESSA Final Result [facility] [address] [place] [address] * (ABNORMAL) Body Fluid Cell Count w/ Diff (06/12/2024 5:00 PM EST) Color, Body fluid Yellow LAB HEMATOLOGY METHOD 06/13/2024 8:26 AM EST [facility] Appearance, Body fluid Cloudy(A) LAB HEMATOLOGY METHOD 06/13/2024 8:26 AM EST [facility] Volume, Body fluid 4.0 cc LAB HEMATOLOGY METHOD 06/13/2024 8:26 AM EST [facility] Fluid Container Specimen received in miscellaneous container LAB HEMATOLOGY METHOD 06/13/2024 8:26 AM EST [facility] Red Blood Cell Count, Body fluid 10,000 uL LAB HEMATOLOGY METHOD 06/13/2024 8:26 AM EST [facility] Total Nucleated Cell Count, Body fluid >100,000 uL LAB HEMATOLOGY METHOD 06/13/2024 8:26 AM [facility] Neutrophils %, Body fluid 90 % LAB HEMATOLOGY METHOD 06/13/2024 8:26 AM [facility] Lymphocytes %, Body fluid 3 % LAB HEMATOLOGY METHOD 06/13/2024 8:26 AM [facility] Monocytes/Macr ophages %, Body fluid 7 % LAB HEMATOLOGY METHOD 06/13/2024 8:26 AM EST [facility] Eosinophils %, Body fluid 0 % LAB HEMATOLOGY METHOD 06/13/2024 8:26 AM [facility] Lining/Mesothe lial Cells %, Body fluid 0 % LAB HEMATOLOGY METHOD 06/13/2024 8:26 AM [facility] Neutrophils Absolute (PMN), Body fluid >90,000 uL LAB HEMATOLOGY METHOD 06/13/2024 8:26 AM EST [facility] Lymphocytes Absolute, Body fluid >3,000 uL LAB HEMATOLOGY METHOD 06/13/2024 8:26 AM [facility] Monocytes/Macr ophages Absolute, Body fluid >7,000 uL LAB HEMATOLOGY METHOD 06/13/2024 8:26 AM [facility] Eosinophils Absolute, Body fluid 0 uL LAB HEMATOLOGY METHOD 06/13/2024 8:26 AM [facility] Basophils Absolute, Body fluid 0 uL LAB HEMATOLOGY METHOD 06/13/2024 8:26 AM [facility] Lining/Mesothe lial Cells Absolute, Body fluid 0 uL LAB HEMATOLOGY METHOD 06/13/2024 8:26 AM [facility] Basophils %, Body fluid 0 % LAB HEMATOLOGY METHOD 06/13/2024 8:26 AM [facility] Joint Fluid Synovial structure / Unknown 06/12/2024 5:00 PM EST 06/13/2024 5:02 AM EST Julien Matthews LAB BODY FLUIDS AND STOOLS ORDERABLES NO SPECIMEN TYPE/SOURCE Final Result [facility] [address] [place] [address] * (ABNORMAL) Body Fluid Cell Count W/O Diff (06/12/2024 5:00 PM EST) Specimen Source, Body Fluid Synovial Fluid (type in source) 06/12/2024 8:21 PM EST [facility] Specimen Type Joint Fluid 06/12/2024 8:21 PM EST [facility] Color, Body fluid Yellow LAB HEMATOLOGY METHOD 06/12/2024 8:21 PM EST [facility] Appearance, Body fluid Cloudy(A) LAB HEMATOLOGY METHOD 06/12/2024 8:21 PM EST [facility] Volume, Body fluid 4.0 cc LAB HEMATOLOGY METHOD 06/12/2024 8:21 PM EST [facility] Red Blood Cell Count, Body fluid 10,000 uL LAB HEMATOLOGY METHOD 06/12/2024 8:21 PM EST [facility] Total Nucleated Cell Count, Body fluid >100,000 uL LAB HEMATOLOGY METHOD 06/12/2024 8:21 PM EST [facility] Fluid Container Specimen received in miscellaneous container LAB HEMATOLOGY METHOD 06/12/2024 8:21 PM EST [facility] Joint Fluid Synovial structure / Unknown 06/12/2024 5:00 PM EST 06/12/2024 7:43 PM EST Julien Matthews LAB BODY FLUIDS AND STOOLS ORDER VANESSA Final Result Performing Organization Address City/[facility]/ZIP Co de Phone Number [facility] [address] [place] [address] * Joint Fluid Crystals (06/12/2024 5:00 PM EST) Crystals, Joint Fluid No Crystals Seen No Crystals Present 06/12/2024 11:03 PM EST [facility] Joint Fluid 06/12/2024 5:00 PM EST 06/12/2024 7:43 PM EST us Julien Matthews LAB BODY FLUIDS AND STOOLS ORDER VANESSA Final Result Performing Organization Address City/[facility]/ZIP Co de Phone Number [facility] [address] [place] [address] documented in this encounter Visit Diagnoses Diagnosis [...] documented as of this encounter Care Teams Vehicle Service Agent Relationship Specialty Start Date End Date Addison Rizzo DO [address] [place] [address] PCP - General 04/26/24 06/23/24 [place] [address] PCP - General Family Medicine 06/24/24 Addison Rizzo DO [address] [place] [address] 06/24/24 Brooklyn Redmond LPN VALUE[employer] [place] [address] TCM Nurse 06/23/24 07/23/24 documented as of this encounter
--- OUTSIDE RECORDS SUMMARY | 2025-01-20 11:20 | XMS_ITS | Clinical Summary ---
Author Organization [facility] Address [address] [place] [address], [address] [place] [address] Care Team Providers Care Supervisor Bonding Name Role Phone Estefania Bueno MD Primary [...] of Treatment Not on file Care Teams Supervisor Bonding Relationship Specialty Start Date End Date Estefania Bueno MD [address] [place] [address] PCP - General 01/15/12
--- OUTSIDE RECORDS SUMMARY | 2025-01-20 11:20 | XMS_ITS | Encounter Summary ---
Author Organization [employer] ([place], [place], [place], [place]) Address [address] [place] [address] Care Team Providers Care Airbrush Painter Name Role Phone Unavailable Primary Care Provider Unavailabl e Encounter Details Date Type Department Care Team (Late st Contact Info) Description 05/18/2019 Transcribed Document [facility] [place] [facility] [place] [address] ProviderEmilia MD [address] [place], [place] [phone] Social History Tobacco Use Types Packs/Day Years Used Date Smoking Tobacco: Never Assessed Sex and Gender Information Value Date Recorded Sex Assigned at Not on file Legal Sex Male 5:19 PM CDT Gender Identity Not on file Sexual Orientation Not on file documented as of this encounter Miscellaneous Notes * Cerner Conversion Note - Historical ProviderMD - 05/18/2019 4:07 PM LIGHT INDUSTRIAL SUPERVISOR CR Chest 1 Vw Portable Ordered: 05/18/2019 Modified Reason for Exam: Chest Pain 05/18/2019 15:58 05/18/2019 16:07 (JORDAN GOMES) No further action required documented in this encounter Plan of Treatment Not on file documented as of this encounter Visit Diagnoses Not on filedocumented in this encounter
--- OUTSIDE RECORDS SUMMARY | 2025-01-20 11:20 | XMS_ITS | Encounter Summary ---
Author Organization [employer] ([place], [place], [place], [place]) Address [address] [place] [address] Care Team Providers Care Headrig Sawyer Name Role Phone Unavailable Primary Care Provider Unavailabl e Encounter Details Date Type Department Care Team (Late st Contact Info) Description 01/30/2019 Transcribed Document [facility] [place] [facility] [place] [address] ProviderEmilia MD [address] [place], [place] [phone] Social History Tobacco Use Types Packs/Day Years [...] Numbers : Insurance 1 Health Plan: [employer] Policy Number: [id number] Authorization Number: Insurance Primary Name : [employer] Policy Number: [id number] Authorization Status-Primary : Awaiting callback Authorized Service [...]
--- OUTSIDE RECORDS SUMMARY | 2025-01-20 11:20 | XMS_ITS | Encounter Summary ---
Author Organization [employer] ([place], [place], [place], [place]) Address [address] [place] [address] Care Team Providers Care Jukebox Route Driver Name Role Phone Unavailable Primary Care Provider Unavailabl e Encounter Details Date Type Department Care Team (Late st Contact Info) Description 01/30/2019 Transcribed Document [facility] [place] [facility] [place] [address] ProviderEmilia MD [address] [place] [id number] Social History Tobacco Use Types Packs/Day Years Used Date Smoking Tobacco: Never Assessed Sex and Gender Information Value Date Recorded Sex Assigned at Not on file Legal Sex Male 5:19 PM CDT Gender Identity Not on file Sexual Orientation Not on file documented as of this encounter Miscellaneous Notes * Cerner Conversion Note - Historical ProviderMD - 01/30/2019 2:00 AM CDT Trailer Tank Truck Driver Details Entered On: 01/30/2019 2:21 EDT Performed [...]
--- OUTSIDE RECORDS SUMMARY | 2025-01-20 11:20 | XMS_ITS | Encounter Summary ---
Author Organization [employer] ([place], [place], [place], [place]) Address [address] [place] [address] Care Team Providers Care Utility Hand Name Role Phone Unavailable Primary Care Provider Unavailabl e Encounter Details Date Type Department Care Team (Late st Contact Info) Description 01/30/2019 Transcribed Document [facility] [place] [facility] [place] [address] ProviderEmilia MD [address] [place], [place] [address] Social History Tobacco Use Types Packs/Day Years [...] History of obstructive sleep apnea / IMO [id number] / Confirmed, Active Problems (6) CKD (chronic kidney disease) Diabetes mellitus GERD (gastroesophageal reflux disease) History of obstructive sleep apnea [place] (hard of hearing) Hypertension Objective VS/Measurements Vitals [...]
--- OUTSIDE RECORDS SUMMARY | 2025-01-20 11:20 | XMS_ITS | Encounter Summary ---
Author Organization [employer] ([place], [place], [place], [place]) Address [address] [place] [address] Care Team Providers Care Slabber Name Role Phone Unavailable Primary Care Provider Unavailabl e Encounter Details Date Type Department Care Team (Late st Contact Info) Description 01/30/2019 Transcribed Document [facility] [place] Family Medicine Formerly [facility] [place] [address] ProviderEmilia MD [address] [place], [place] [address] Social History Tobacco Use Types Packs/Day Years [...] has been evaluated there and transferred to [facility]. Patient came in, blood work done shows [...]
--- OUTSIDE RECORDS SUMMARY | 2025-01-20 11:20 | XMS_ITS | Encounter Summary ---
Author Organization [employer] ([place], [place], [place], [place]) Address [address] [place] [address] Care Team Providers Care Ehs Engineer Name Role Phone Unavailable Primary Care Provider Unavailabl e Encounter Details Date Type Department Care Team (Late st Contact Info) Description 02/01/2019 Transcribed Document [facility] [place] Family Medicine [facility] [place] [address] MD [address] [place], [place] [address] Social History Tobacco Use Types Packs/Day Years [...] Morbid obesity. DISCHARGE INSTRUCTIONS: Diet: According to [place] [employer]. Activities: As tolerated. Followup appointment [...] chronic kidney disease, has been followed by shirt folding machine operator. Recommended patient to follow up as outpatient [...]
--- OUTSIDE RECORDS SUMMARY | 2025-01-20 11:20 | XMS_ITS | Encounter Summary ---
Author Organization [employer] ([place], [place], [place], [place]) Address [address] [place] [address] Care Team Providers Care Fleet Director Name Role Phone Unavailable Primary Care Provider Unavailabl e Encounter Details Date Type Department Care Team (Late st Contact Info) Description 01/29/2019 Transcribed Document [facility] [place] [facility] [place] [address] ProviderEmilia MD [address] [place], [place] [id number] Social History Tobacco Use Types Packs/Day Years [...] From : Emergency department Legal Guardian : telecommunications analyst Support Person/Patient Oral Surgery Physician : No Want Family/Rep/Phys Notified of Admit : No Emergency Contact #1 : Samara Carey Emergency Contact #1 Emergency Contact #1 Relationship : Girlfriend Emergency Contact #2 : N/a Emergency Contact #2 Phone Number : N/a Emergency Contact #2 Relationship : N/a Information Obtained From : Patient Primary Language : Irish Preferred Communication Mode : Verbal Communication Barrier [...] Scale Risk Level : 0-24 Low Risk [place] Fall Interventions : Adequate lighting, Bed in [...] Source : Stated Height Entry Format : Bennett Height, Feet : 6 ft(Converted to: 183 cm, 72 Inch) Height, Inches : 0 Inch(Converted to: 0 ft 0 Inch, 0.00 cm) Clinical Height : 182.88 cm Weight Source : Bed scale Weight Entry Format : Bennett Clinical Dosing Weight : 135.91 kg Weight, Pounds : 299 lb Body Surface Area (BSA) : 2.53 m2 Body Mass Index : 40.6 kg/m2 (>HHI) [place] Body Weight : 77 kg Ana Villeda [...] Any Spiritual/Cultural Needs or Requests : No Scientologist Preference : Mormon Ana Villeda Rn - 01/29/2019 22:41 EDT [...]
--- OUTSIDE RECORDS SUMMARY | 2025-01-20 11:20 | XMS_ITS | Encounter Summary ---
Author Organization [employer] ([place], [place], [place], [place]) Address [address] [place] [address] Care Team Providers Care Javascript Application Developer Name Role Phone Unavailable Primary Care Provider Unavailabl e Encounter Details Date Type Department Care Team (Late st Contact Info) Description 05/18/2019 Transcribed Document [facility] [place] [address] [place] [address] ProviderEmilia MD [address] [place], [place] [address] Social History Tobacco Use Types Packs/Day Years Used Date Smoking Tobacco: Never Assessed Sex and Gender Information Value Date Recorded Sex Assigned at Not on file Legal Sex Male 5:19 PM CDT Gender Identity Not on file Sexual Orientation Not on file documented as of this encounter Miscellaneous Notes * Cerner Conversion Note - Historical ProviderMD - 05/18/2019 1:36 PM ENERGY CONSERVATION SPECIALIST [place] Suicide Severity Rating Scale (C-SSRS) Entered On: 05/18/2019 14:44 EST Performed On: 05/18/2019 14:42 EST by ERICA MONROY RN [place] Suicide Severity Rating Scale (C-SSRS) CSSRS Past [...]
--- OUTSIDE RECORDS SUMMARY | 2025-01-20 11:20 | XMS_ITS | Encounter Summary ---
Author Organization [employer] ([place], [place], [place], [place]) Address [address] [place] [address] Care Team Providers Care Well Reactivator Operator Name Role Phone Unavailable Primary Care Provider Unavailabl e Encounter Details Date Type Department Care Team (Late st Contact Info) Description 05/18/2019 Transcribed Document [facility] [place] [facility] [place] [address] ProviderEmilia MD [address] [place], [place] [address] Social History Tobacco Use Types Packs/Day Years Used Date Smoking Tobacco: Never Assessed Sex and Gender Information Value Date Recorded Sex Assigned at Not on file Legal Sex Male 5:19 PM CDT Gender Identity Not on file Sexual Orientation Not on file documented as of this encounter Miscellaneous Notes * Cerner Conversion Note - Historical ProviderMD - 05/18/2019 6:13 PM LABORATORY APPARATUS GLASS BLOWER documented in this encounter Plan of Treatment Not on file documented as of this encounter Visit Diagnoses Not on filedocumented in this encounter
--- OUTSIDE RECORDS SUMMARY | 2025-01-20 11:20 | XMS_ITS | Data Portability ---
Author Organization [facility] ADMIN Address [address] [place] [address] Care Team Providers Care Marksmanship Instructor Name Role Phone MAMI PAYTON Primary Care Provider [phone] Assessment No assessment recorded. Plan of Treatment [...] Organization Details Recorded Time Sensorineural hearing loss 30605041 Active 2022 SOCORRO REYNOSO, AUD [address] [facility]ly [facility], [place], [address] , [facility] [place] 3 10:26:08 Problem Notes None recorded. Medical [...] Tobacco Smoking Status Never Smoker Lesa Bran [facility], [facility] 11/06/2022 13:01:36 Has Tobacco Cessation Counseling Been Provided? No [email or web address] Information not available 04/02/2023 Sex: Unknown Functional Status Question Answer Note LastModified by Organizat ion Details LastModified Time Do you use any illicit or recreational drugs? No [email or web address] Information not available 10/17/2022 Do you or have you ever used any other forms of tobacco or nicotine? No [email or web address] Information not available 04/02/2023 Mental Status None recorded. Family History Nothing Reported Notes:Mother - Fath er - Medical History No medical history recorded. Past Encounters Encounter ID Performer Location Encounter Start Date Encounter Closed Date Diagnosis/Indication Diagnosis SNOMED-CT Code Diagnosis ICD10 Code Diagnosis Note [id number] Joel Lopez MD [facility] [address] [place] [address] [address] [place] [address] 11/06/2022 12:44:51 11/06/2022 13:53:56 Recurrent urinary tract infection 857014710 N39.0 Increased frequency of urination 785430564 R35.0 Dysuria 01654345 R30.0 Atrophy of left kidney 602837021 N26.1 nonfunctio mason Chronic re nal insufficiency 176155040 N18.9 historical ly 37% right renal function and 0% on left. 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, chronic History of diabetes mellitus type 2 018556011 Z86.39 [id number] Joel Lopez MD [facility] [address] [place] [address] [address] [place] [address] 02/24/2023 15:38:26 02/28/2023 08:56:41 Recurrent urinary tract infection 579177691 N39.0 Increased frequency of urination 762479756 R35.0 Dysuria 03485759 R30.0 Atrophy of kidney 934076 005 N26.1 Chronic ki dney disease 512425449 N18.9 Nocturia 970684762 R35.1 Renal artery stenosis 30 1666977 I70.1 History of transient ischemic attack 979056839 Z86.73 Screening for malignant neoplasm of prostate 715124824 Z12.5 Balanitis xerotica obliterans 322186261 N48.0 Balanoposthitis 13968141 N47.6 mild, chronic History of diabetes mellitus 864663167 Z86.39 [id number] Kristin Goldstein NP, S [facility] [address] [place] [address],it [address] [place] [address] 04/02/2023 13:28:21 04/02/2023 15:29:15 Recurrent urinary tract infection 310181219 N39.0 Will send urine for culture and sensitivit yRenal function panelOnce renal function panel is back will determine ? CT scan for imaging of kidneys. Labwork returned and BUN 20 and Creat 2.1. Will order CT scan of abd/pelvis without contrast Increased frequency of urination 066872329 R35.0 Dysuria 91283589 R30.0 Atrophy of kidney 162162 005 N26.1 Chronic ki dney disease 434418122 N18.9 Nocturia 745109785 R35.1 Renal artery stenosis 30 4014207 I70.1 History of transient ischemic attack 420636852 Z86.73 Balanitis xerotica obliterans 344131476 N48.0 History of diabetes mellitus 659293103 Z86.39 Long-term current use of anticoagulant 297873579 Z79.01 Microscopic hematuria 19 5116474 R31.29 [id number] [facility] [place] [id number] 04/09/2023 10:25:37 04/09/2023 10:26:32 Sensorineural hearing loss 02722827 H90.3 [id number] [facility] [place] [id number] 09/02/2023 15:01:16 09/02/2023 15:01:47 Sensorineural hearing loss 65070378 H90.3 [id number] [facility] [place] [id number] 02/25/2024 13:33:35 02/25/2024 13:33:51 Sensorineural hearing loss 86782734 H90.3 [id number] [facility] [place] [address] [place] [address] 08/31/2024 14:41:51 08/31/2024 15:05:55 Sensorineural hearing loss 93967791 H90.3 [id number] [facility] [facility] [place] [address] 09/22/2024 11:38:24 09/22/2024 11:43:16 Sensorineural hearing loss 53400757 H90.3 [id number] [facility] [facility] [address] 11/03/2024 10:28:23 11/03/2024 10:33:28 Sensorineural hearing loss 08262884 H90.3 Health Concerns Section Related Observation LastModified by Organization Detai ls LastModified Time None Recorded Concern Status LastModified by Organization Details LastModified Time None Recorded Advance Directives Directive None Recorded Payers Insurance Date Sequence Insurance Name Policy Number Policy Amaro Covered Member ID Amaro Member ID Guarantor Name 04/21/2019 1 GABB[employer] Johnathan Parham [id number] Johnathan Parham 10/31/2024 1 [employer] - GOLD PLUS (MEDICARE REPLACEMENT/A DVANTAGE - HMO) Johnathan Parham [id number] Johnathan Parham Notes Date Note Type Note Provider Name and Address Organization Details Recorded Time 09/02/2023 text/html Patient was seen today for a hearing aid service. Cleaned and adjusted hearing aids this date. CAITLYN POTTS [address] , [place], [address], [facility] [place] 09/02/2023 15:02:27 02/25/2024 text/html Patient was seen today for a hearing aid service. Cleaned and adjusted hearing aids this date. CAITLYN POTTS [address] , [place], [address], [facility] [place] 02/25/2024 13:34:28 08/31/2024 text/html Patient was seen today for a hearing aid service. Cleaned and adjusted hearing aids this date. CAITLYN POTTS [address] , [place], [address], [facility] [place] 08/31/2024 15:23:41 09/22/2024 text/html Patient was seen today for a hearing aid service. Cleaned and adjusted hearing aids this date. SOCORRO REYNOSO, AUD [address] , [place], [address], [facility] [place] 09/22/2024 11:47:14 11/03/2024 text/html Patient was seen today for a hearing aid service. Cleaned and adjusted hearing aids this date. SOCORRO REYNOSO, AUD [address] , [place], [address], [place] [facility] [place] 11/03/2024 10:36:35
--- OUTSIDE RECORDS SUMMARY | 2025-01-20 11:20 | XMS_ITS | Encounter Summary ---
Author Organization [employer] ([place], [place], [place], [place]) Address [address] [place] [address] Care Team Providers Care Door Closer Name Role Phone Unavailable Primary Care Provider Annie raya Encounter Details Date Type Department Care Team (Late st Contact Info) Description 01/29/2019 Transcribed Document [facility] [place] [facility] [place] [address] ProviderEmilia MD [address] [place], [place] [id number] Social History Tobacco Use Types Packs/Day Years [...] On: 02/01/2019 10:16 EDT by Lesvia Warner Bass Viol Repairer Nutrition Assessment Nutrition Assessment Reason : Automatic referral Lesvia Warner Bass Viol Repairer - 02/01/2019 10:10 EDT Nutrition Recommendations Dietitian [...] Level : No nutritional risk Lesvia Warner, Bass Viol Repairer - 02/01/2019 10:16 EDT Electronically signed by [facility], [facility] Conversion Zinc Plate Grainer Cerner at 10/22/2022 11:01 PM CDT documented in this encounter Plan of Treatment Not on file documented as of this encounter Visit Diagnoses Not on filedocumented in this encounter
--- OUTSIDE RECORDS SUMMARY | 2025-01-20 11:20 | XMS_ITS | Referral Summary ---
Author Organization [facility] ([place], [place], [place], [place]) Address [address] [place] [address] Care Team Providers Care Correctional Supply Supervisor Name Role Phone Unavailable Primary Care [...]
--- OUTSIDE RECORDS SUMMARY | 2025-01-20 11:20 | XMS_ITS | Encounter Summary ---
Author Organization [employer] ([place], [place], [place], [place]) Address [address] [place] [address] Care Team Providers Care Electric Distribution Checker Name Role Phone Unavailable Primary Care Provider Unavailabl e Encounter Details Date Type Department Care Team (Late st Contact Info) Description 05/18/2019 Transcribed Document [facility] [place] [facility] [place] [address] ProviderEmilia MD [address] [place] [id number] Social History Tobacco Use Types Packs/Day Years Used Date Smoking Tobacco: Never Assessed Sex and Gender Information Value Date Recorded Sex Assigned at Not on file Legal Sex Male 5:19 PM CDT Gender Identity Not on file Sexual Orientation Not on file documented as of this encounter Miscellaneous Notes * Cerner Conversion Note - Historical ProviderMD - 05/18/2019 3:33 PM COIL SHAPER Patient: JOHNATHAN PARHAM Age: 63 years Sex: [...] GRAFT in 2004 at 50 Years. CHOLECYSTECTOMY ([id number]). CATARACT REMOVAL INSERTION OF LENS ([id number]). Right knee replacement. Hernia Repair. Carotid Endardectomy.. [...] reflux disease) History of obstructive sleep apnea [place] (hard of hearing) Hypertension . Physical Examination [...] Normal ventricular rate is 64 bpm. pr [id number] ms. Normal QTC. Sinus rhythm with no [...] % 26.0 % Lymph # 1.41 x10(3)/uL [place] % 8.3 % [place] # 0.45 K/uL Eos % 2.8 % Eos # 0.15 x10(3)/uL Baso % 0.6 % Baso # 0.03 x10(3)/uL Slide Review No IG# 0.02 x10(3)/uL IG% 0.40 % PT 10.0 Second(s) INR 1.0 PTT 26.8 Second(s) . Radiology results: Radiology Results (Last 48 hours) [id number] -- 05/18/2019 13:36 CR Chest 1 Vw [...] He does need to follow-up with his cardiopulmonary technician and eeg tech in 24 hours. He is have any [...]
--- OUTSIDE RECORDS SUMMARY | 2025-01-20 11:20 | XMS_ITS | Encounter Summary ---
Author Organization [employer] ([place], [place], [place], [place]) Address [address] [place] [address] Care Team Providers Care Animation Camera Operator Name Role Phone Unavailable Primary Care Provider Unavailabl e Encounter Details Date Type Department Care Team (Late st Contact Info) Description 01/31/2019 Transcribed Document [facility] Cardiology [address] [place] [address] [place] [address] [place] [address] [address] [place] [address] Social History Tobacco Use Types Packs/Day Years [...] CKD (chronic kidney disease) / SNOMED CT 7926089600 / Confirmed Diabetes mellitus / SNOMED CT 046267664 / Confirmed GERD (gastroesophageal reflux disease) / SNOMED CT 991171076 / Confirmed [place] (hard of hearing) / SNOMED CT 97522446 / Confirmed History of obstructive sleep apnea / IMO 81428508 / Confirmed Hypertension / SNOMED CT 5305059127 / Confirmed, Active Problems (6) CKD (chronic kidney disease) Diabetes mellitus GERD (gastroesophageal reflux disease) History of obstructive sleep apnea [place] (hard of hearing) Hypertension Objective Intake and [...] 01/29/2019 23:10 Radiology Results (Last 48 hours) [id number] -- 01/29/2019 21:34 CR Chest 2 Vws [...] normal. a. Recent abnormal stress testing at [facility] [place]. 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 PLAN; 01/31/2019 Add amlodipine. If persitent HTN will increase [facility]er [place] I for now secondary to renal dysfunction Other Rx appropriate nephrology recs pending [facility] tomorrow if renal function stable. 01/30/2019 Continue aspirin/Plavix/rosuvastatin/coreg. Change home isosorbide dinitrate to him before 60 mg daily. Echocardiogram IV hydration DC [place] I Plan for [facility] once renal function stable. Consider nephrology evaluation documented in this encounter Plan of Treatment Not on file documented as of this encounter Visit Diagnoses Not on filedocumented in this encounter
--- OUTSIDE RECORDS SUMMARY | 2025-01-20 11:20 | XMS_ITS | Encounter Summary ---
Author Organization [employer] ([place], [place], [place], [place]) Address [address] [place] [address] Care Team Providers Care Clam Dredger Name Role Phone Unavailable Primary Care Provider Unavailabl e Encounter Details Date Type Department Care Team (Late st Contact Info) Description 01/30/2019 Transcribed Document [facility] [place] Family Medicine [address] [place] [address] ProviderEmilia MD [address] [place], [place] [id number] Social History Tobacco Use Types Packs/Day Years [...] Ana Villeda Rn - 01/30/2019 3:07 EDT Electronically signed by Kiara Van Conversion Forensic Identification Specialist Cerner at 10/22/2022 11:23 PM CDT documented in this encounter Plan of Treatment Not on file documented as of this encounter Visit Diagnoses Not on filedocumented in this encounter
--- OUTSIDE RECORDS SUMMARY | 2025-01-20 11:20 | XMS_ITS | Encounter Summary ---
Author Organization [employer] ([place], [place], [place], [place]) Address [address] [place] [address] Care Team Providers Care Cash Manager Name Role Phone Unavailable Primary Care Provider Unavailabl e Encounter Details Date Type Department Care Team (Late st Contact Info) Description 01/30/2019 Transcribed Document [facility] [place] Family [place] [facility] [place] [address] ProviderEmilia MD [address] [place], [place] [id number] Social History Tobacco Use Types Packs/Day Years [...] Physician Requested for Consult : EDILBERTO MIRANDA MD-[facility] Provider Service Notified Name : Nephrology Physician Covering for Consult : CHRISTIANO FRANCIS MD Date and Time Call Returned : 01/30/2019 14:22 EDT Physician Returning Call : CHRISTIANO FRANCIS MD Ayubu, Sara, SWAN - 01/30/2019 14:22 EDT Electronically signed by Rehan [facility] Conversion Fructose Loader Cerner at 10/22/2022 11:12 PM CDT documented in this encounter Plan of Treatment Not on file documented as of this encounter Visit Diagnoses Not on filedocumented in this encounter
--- OUTSIDE RECORDS SUMMARY | 2025-01-20 11:20 | XMS_ITS | Encounter Summary ---
Author Organization [employer] ([place], [place], [place], [place]) Address [address] [place] [address] Care Team Providers Care Director Social Name Role Phone Unavailable Primary Care Provider Unavailabl e Encounter Details Date Type Department Care Team (Late st Contact Info) Description 05/18/2019 Transcribed Document [facility] [place] Family Medicine [facility] [place] [address] ProviderEmilia MD [address] [place], [place] [id number] Social History Tobacco Use Types Packs/Day Years Used Date Smoking Tobacco: Never Assessed Sex and Gender Information Value Date Recorded Sex Assigned at Not on file Legal Sex Male 5:19 PM CDT Gender Identity Not on file Sexual Orientation Not on file documented as of this encounter Miscellaneous Notes * Cerner Conversion Note - Emilia ProviderMD - 05/18/2019 1:36 PM CATERPILLAR TRACTOR OPERATOR ED Triage Entered On: 05/18/2019 13:41 EST [...] : 2 - Emergent Tracking Group : [facility] ED Shelby Jefferson RN - 05/18/2019 13:38 EST Mode of Arrival : Stretcher Transported to ED by : Ambulance/ALS EMS Service : [facility] To Room Via : Stretcher Accompanied By : Unaccompanied GYROSCOPE REPAIRER Medications and Interventions : Document ED Vital Signs : Document Height & Weight : Document ED Allergies : Document ED Reason for Visit : Document Tetanus Immunization : Unknown [place] Needed : No Shelby Jefferson RN - [...] Problems(Active) CKD (chronic kidney disease) (SNOMED CT :1242049445 ) Name of Problem: CKD (chronic kidney disease) ; Recorder: Ana Villeda RN; Confirmation: Confirmed ; Classification: Patient Stated ; Code: 7323248948 ; Contributor System: [employer] ; Last Updated: 01/29/2019 22:37 EDT ; Life Cycle Date: 01/29/2019 ; Life Cycle Status: Active ; Vocabulary: SNOMED CT Diabetes mellitus (SNOMED CT :460169453 ) Name of Problem: Diabetes mellitus ; Recorder: Ana Villeda RN; Confirmation: Confirmed ; Classification: Patient Stated ; Code: 007483503 ; Contributor System: [employer] ; Last Updated: 01/29/2019 22:37 EDT ; Life Cycle Date: 01/29/2019 ; Life Cycle Status: Active ; Vocabulary: SNOMED CT GERD (gastroesophageal reflux disease) (SNOMED CT :569836866 ) Name of Problem: GERD (gastroesophageal reflux disease) ; Recorder: Ana Villeda RN; Confirmation: Confirmed ; Classification: Patient Stated ; Code: 799024887 ; Contributor System: [employer] ; Last Updated: 01/29/2019 22:37 EDT ; Life Cycle Date: 01/29/2019 ; Life Cycle Status: Active ; Vocabulary: SNOMED CT History of obstructive sleep apnea (IMO :31496350 ) Name of Problem: History of obstructive sleep apnea ; Recorder: SYSTEM, SYSTEM; Confirmation: Confirmed ; Classification: Medical ; Code: 26350548 ; Last Updated: 01/29/2019 22:48 EDT ; Life Cycle Date: 01/29/2019 ; Life Cycle Status: Active ; Vocabulary: IMO AFOGNAK (hard of hearing) (SNOMED CT :00992866 ) Name of Problem: [place] (hard of hearing) ; Recorder: Ana Villeda RN; Confirmation: Confirmed ; Classification: Patient Stated ; Code: 65598583 ; Contributor System: [employer] ; Last Updated: 01/29/2019 22:37 EDT ; Life Cycle Date: 01/29/2019 ; Life Cycle Status: Active ; Vocabulary: SNOMED CT Hypertension (SNOMED CT :9108966481 ) Name of Problem: Hypertension ; Recorder: Ana Villeda RN; Confirmation: Confirmed ; Classification: Patient Stated ; Code: 5992374999 ; Contributor System: [employer] ; Last Updated: 01/29/2019 22:37 EDT ; Life Cycle Date: 01/29/2019 ; Life Cycle Status: Active ; Vocabulary: SNOMED CT Diagnoses(Active) Chest pain Date: 05/18/2019 ; Diagnosis Type: Reason For Visit ; Confirmation: Complaint of ; Clinical Dx: Chest pain ; Classification: Medical ; Clinical Service: Emergency medicine ; Code: PNED ; Probability: 0 ; Diagnosis Code: [id number] ED Height and Weight Height Source : Estimated Height Entry Format : [place] Height, Feet : 6 ft(Converted to: 183 cm, 72 Inch) Height, Inches : 2 Inch(Converted to: 0 ft 2 Inch, 5.08 cm) Clinical Height : 187.96 cm Weight Source, ED : Critical estimated dosing weight Weight Entry Format : [place] Weight, Pounds : 320 lb Clinical Dosing Weight : 145.45 kg Body Surface Area (BSA) : 2.66 m2 Body Mass Index : 41.2 kg/m2 (>HHI) [place] Body Weight (IBW) : 81.16 kg Shelby Jefferson RN - 05/18/2019 13:38 EST GYROSCOPE REPAIRER Medications and Interventions Treatments Prior to Arrival : Other: 20 G right AC; fsbs 346 Shelby Jefferson RN - 05/18/2019 13:38 EST Electronically signed by Rehan, [facility] Conversion Business Services Vice President Cerner at 10/22/2022 11:22 PM CDT documented in this encounter Plan of Treatment Not on file documented as of this encounter Visit Diagnoses Not on filedocumented in this encounter
--- OUTSIDE RECORDS SUMMARY | 2025-01-20 11:20 | XMS_ITS | Encounter Summary ---
Author Organization [employer] ([place], [place], [place], [place]) Address [address] [place] [address] Care Team Providers Care Bond Manager Name Role Phone Unavailable Primary Care Provider Unavailabl e Encounter Details Date Type Department Care Team (Late st Contact Info) Description 01/30/2019 Transcribed Document [facility] [place] Family Medicine [address] [place] [address] ProviderEmilia MD [address] [place], [place] [id number] Social History Tobacco Use Types Packs/Day Years [...]
--- OUTSIDE RECORDS SUMMARY | 2025-01-20 11:20 | XMS_ITS | Encounter Summary ---
Author Organization [employer] ([place], [place], [place], [place]) Address [address] [place] [address] Care Team Providers Care Spray Rig Operator Name Role Phone Unavailable Primary Care Provider Unavailabl e Encounter Details Date Type Department Care Team (Late st Contact Info) Description 01/31/2019 Transcribed Document [facility] [place] Family Medicine [facility] [place] [address] ProviderEmilia MD [address] [place], [place] [address] Social History Tobacco Use Types Packs/Day Years [...] and diabetes mellitus type 2 presented to [facility] with complaints of progressive chest pain with associated palpitations shortness of air and cough via [facility]. He underwent stress testing at their facility [...] FIONA PECK MD-INT Admitting Physician - FIONA EPCK MD-INT Consulting Physician - TAHIR JONES MD-CAR (Cardiology)- chest pain Consulting Physician - JUSTO JUNE MD-CAR Consulting Physician - EDILBERTO MIRANDA MD-NEP (nephrology)- ARF Consulting Physician - CHRISTIANO FRANCIS MD Referring Physician - FIONA PECK MD-INT Problem List/Past Medical History Ongoing Arrhythmia CKD (chronic kidney disease) Diabetes mellitus GERD (gastroesophageal reflux disease) History of obstructive sleep apnea [place] (hard of hearing) Hypertension Historical No qualifying [...] Lymph # 1.76 x10(3)/uL 01/31/2019 04:16 EDT [place] % 7.4 % 01/31/2019 04:16 EDT [place] # 0.45 K/uL 01/31/2019 04:16 EDT Eos [...]
--- OUTSIDE RECORDS SUMMARY | 2025-01-20 11:21 | XMS_ITS | Encounter Summary ---
Author Organization [employer] ([place], [place], [place], [place]) Address [address] [place] [address] Care Team Providers Care Chief Librarian Circulation Department Name Role Phone Unavailable Primary Care Provider Unavailabl e Encounter Details Date Type Department Care Team (Late st Contact Info) Description 02/02/2019 Transcribed Document [facility] [place] Family Medicine [facility] [place] [address] ProviderEmilia MD [address] [place], [place] [address] Social History Tobacco Use Types Packs/Day Years Used Date Smoking Tobacco: Never Assessed Sex and Gender Information Value Date Recorded Sex Assigned at Not on file Legal Sex Male 5:19 PM CDT Gender Identity Not on file Sexual Orientation Not on file documented as of this encounter Miscellaneous Notes * Cerner Conversion Note - Historical ProviderMD - 02/02/2019 2:00 AM CDT Operations Business Partner Details Entered On: 02/02/2019 6:46 EDT Performed [...]
--- OUTSIDE RECORDS SUMMARY | 2025-01-20 11:21 | XMS_ITS | Encounter Summary ---
Author Organization [employer] ([place], [place], [place], [place]) Address [address] [place] [address] Care Team Providers Care Chip Bin Operator Name Role Phone Unavailable Primary Care Provider Unavailabl e Encounter Details Date Type Department Care Team (Late st Contact Info) Description 02/01/2019 Transcribed Document [facility] Cardiology [address] [place] [address] [place] [address] [place] [address] [address] [place] [address] Social History Tobacco Use Types [...] reflux disease) History of obstructive sleep apnea [place] (hard of hearing) Hypertension Objective Intake and [...] 24 Hours) Radiology Results (Last 48 hours) [id number] -- 01/29/2019 21:34 CR Chest 2 Vws [...] normal. a. Recent abnormal stress testing at [facility] 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 PLAN; 02/01/19 [facility] today unremarkable. Recommend tight BP control. NOthing further to add. Follow up with Dr Daily 2-3 weeks. Will sign off. 01/31/2019 Add amlodipine. If persitent HTN will increase Defer [place] I for now secondary to renal dysfunction Other Rx appropriate nephrology recs pending [facility] tomorrow if renal function stable. 01/30/2019 Continue aspirin/Plavix/rosuvastatin/coreg. Change home isosorbide dinitrate to him before 60 mg daily. Echocardiogram IV hydration DC [place] I Plan for [facility] once renal function stable. Consider nephrology evaluation documented in this encounter Plan of Treatment Not on file documented as of this encounter Visit Diagnoses Not on filedocumented in this encounter
--- OUTSIDE RECORDS SUMMARY | 2025-01-20 11:21 | XMS_ITS | Encounter Summary ---
Author Organization [employer] ([place], [place], [place], [place]) Address [address] [place] [address] Care Team Providers Care Finisher Plate Name Role Phone Unavailable Primary Care Provider Unavailabl e Encounter Details Date Type Department Care Team (Late st Contact Info) Description 05/18/2019 Transcribed Document [facility] [place] [facility] [address] [place] [address] ProviderEmilia MD [address] [place], [place] [phone] Social History Tobacco Use Types Packs/Day Years Used Date Smoking Tobacco: Never Assessed Sex and Gender Information Value Date Recorded Sex Assigned at Not on file Legal Sex Male 5:19 PM CDT Gender Identity Not on file Sexual Orientation Not on file documented as of this encounter Miscellaneous Notes * Cerner Conversion Note - Historical ProviderMD - 05/18/2019 2:22 PM VEGETABLE BUNCHER Pain Assessment Entered On: 05/18/2019 15:25 EST Performed On: 05/18/2019 15:25 EST by ERICA MONROY RN Intervention Information: morphine Performed by ERICA MONROY RN on 05/18/2019 14:38:00 EST morphine,4mg IV Push,Right Antecubit [place] Pain Assessment Pain Assessment : Follow-up assessment [...]
--- OUTSIDE RECORDS SUMMARY | 2025-01-20 11:21 | XMS_ITS | Encounter Summary ---
Author Organization [employer] ([place], [place], [place], [place]) Address [address] [place] [address] Care Team Providers Care Plug Sorter Name Role Phone Unavailable Primary Care Provider Unavailabl e Encounter Details Date Type Department Care Team (Late st Contact Info) Description 02/03/2019 Transcribed Document [facility] [place] Family Medicine [facility] [place] [address] ProviderEmilia MD [address] [place], [place] [phone] Social History Tobacco Use Types Packs/Day Years [...] Numbers : Insurance 1 Health Plan: [employer] Policy Number: [id number] Authorization Number: Insurance Primary Name : [employer] Policy Number: [id number] Authorization Status-Primary : Notification only Authorization Number-Primary : [id number] Authorized Service Begin Date-Primary : 01/29/2019 EDT Authorization Comments-Primary : Per call from [facility] approved IP admission. Historical Authorization Comments-Primary : Comment 1: [facility] re: does not meet IP, did we want to change to OBS or have it routed to medical record clerk? Pt had heart cath planned for today, asked him to wait for outcome of C. Cath unremarkable per cards note, discussed case w/ DMc who requests leave as IP and have it routed to med director. Call back to [facility] to request route to MD. (MANOLO CHAU, RN-Utilization Review 02/01/2019 14:35) Comment 2: Received voice mail on main line from Doris at [facility] stating that pt OBS, not meeting for INPT and we need to send more clinical if we have any. ph# [phone] fx# [phone] Made Manolo De Jesus aware as she is following the patient today. (MALIHA DOSHI, Applied Researcher 02/01/2019 13:11) Comment 3: Per [facility] notes Notify Payer of Admission - InProgress - faxed clinicals via cerner. (MIRYAM KOTHARI RN 01/30/2019 13:46) MIRYAM KOTHARI RN - 02/03/2019 9:44 EDT documented in this encounter Plan of Treatment Not on file documented as of this encounter Visit Diagnoses Not on filedocumented in this encounter
--- OUTSIDE RECORDS SUMMARY | 2025-01-20 11:21 | XMS_ITS | Encounter Summary ---
Author Organization [employer] ([place], [place], [place], [place]) Address [address] [place] [address] Care Team Providers Care Flatwork Folder Name Role Phone Unavailable Primary Care Provider Unavailabl e Encounter Details Date Type Department Care Team (Late st Contact Info) Description 02/02/2019 Transcribed Document [facility] [place] [address] ProviderEmilia MD [address] [place], [place] [phone] Social History Tobacco Use Types Packs/Day Years [...] Stated) GERD (gastroesophageal reflux disease) (Patient Stated) [place] (hard of hearing) (Patient Stated) History of [...] 40.6 kg/m2 Critical (01/29/19 22:48:00) Rapid Response Flatwork Folder #1 : SHEREEN ZURITA V, RN SHEREEN ZURITA V RN - 02/02/2019 1:36 EDT documented in this encounter Plan of Treatment Not on file documented as of this encounter Visit Diagnoses Not on filedocumented in this encounter
--- OUTSIDE RECORDS SUMMARY | 2025-01-20 11:21 | XMS_ITS | Encounter Summary ---
Author Organization [employer] ([place], [place], [place], [place]) Address [address] [place] [address] Care Team Providers Care Deputy Sheriff Generalist Name Role Phone Unavailable Primary Care Provider Unavailabl e Encounter Details Date Type Department Care Team (Late st Contact Info) Description 02/01/2019 Transcribed Document [facility] [place] Medicine [address] [place] [address] ProviderEmilia MD [address] [place], [place] [phone] Social History Tobacco Use Types Packs/Day Years [...]
--- OUTSIDE RECORDS SUMMARY | 2025-01-20 11:21 | XMS_ITS | Encounter Summary ---
Author Organization [employer] ([place], [place], [place], [place]) Address [address] [place] [address] Care Team Providers Care Aircraft Pneudraulics Repairer Name Role Phone Unavailable Primary Care Provider Unavailabl e Encounter Details Date Type Department Care Team (Late st Contact Info) Description 02/01/2019 Transcribed Document [facility] Family Medicine [facility] [place] [address] ProviderEmilia MD [address] [place], [place] [phone] Social History Tobacco Use Types Packs/Day Years [...] History of obstructive sleep apnea / IMO [id number] / Confirmed, Active Problems (6) CKD (chronic kidney disease) Diabetes mellitus GERD (gastroesophageal reflux disease) History of obstructive sleep apnea [place] (hard of hearing) Hypertension Objective VS/Measurements Vitals [...]
--- OUTSIDE RECORDS SUMMARY | 2025-01-20 11:21 | XMS_ITS | Encounter Summary ---
Author Organization [employer] ([place], [place], [place], [place]) Address [address] [place] [address] Care Team Providers Care Satellite Dish Technician Name Role Phone Unavailable Primary Care Provider Unavailabl e Encounter Details Date Type Department Care Team (Late st Contact Info) Description 02/01/2019 Transcribed Document [facility] [place] [facility] [place] [address] ProviderEmilia MD [address] [place], [place] [phone] Social History Tobacco Use Types Packs/Day Years [...] On: 02/01/2019 13:11 EDT by MALIHA DOSHI, It Portfolio Manager Primary Insurance Authorization Authorization and Policy Numbers : Insurance 1 Health Plan: [employer] Policy Number: [id number] Authorization Number: Insurance Primary Name : [employer] Policy Number: [id number] Authorization Status-Primary : Awaiting callback Authorized Service Begin Date-Primary : 01/29/2019 EDT Authorization Comments-Primary : Received voice mail on main line from Doris hanson [facility] stating that pt OBS, not meeting for INPT and we need to send more clinical if we have any. ph# [phone] fx# [phone] Made Cayla De Jesus aware as she is following the patient today. Historical Authorization Comments-Primary : Comment 1: Per [facility] notes Notify Payer of Admission - InProgress - faxed clinicals via [employer]ner. (MIRYAM KOTHARI RN 01/30/2019 13:46) MALIHA DOSHI, It Portfolio Manager - 02/01/2019 13:11 EDT documented in this encounter Plan of Treatment Not on file documented as of this encounter Visit Diagnoses Not on filedocumented in this encounter
--- OUTSIDE RECORDS SUMMARY | 2025-01-20 11:21 | XMS_ITS | Encounter Summary ---
Author Organization [employer] ([place], [place], [place], [place]) Address [address] [place] [address] Care Team Providers Care Concrete Float Maker Name Role Phone Unavailable Primary Care Provider Unavailabl e Encounter Details Date Type Department Care Team (Late st Contact Info) Description 02/02/2019 Transcribed Document [facility] [place] Medicine [facility] [place] [address] ProviderEmilia MD [address] [place] [address] Social History Tobacco Use Types Packs/Day Years Used Date Smoking Tobacco: Never Assessed Sex and Gender Information Value Date Recorded Sex Assigned at Not on file Legal Sex Male 5:19 PM CDT Gender Identity Not on file Sexual Orientation Not on file documented as of this encounter Miscellaneous Notes * Cerner Conversion Note - Emilia ProviderMD - 02/02/2019 12:42 PM [place] [address] JOANNA COURTNEY :1955 Visit Time:01/29/2019 Your Visit Summary Your Care Team Admitting Physician - FIONA PECK MD-INT Attending Physician - FIONA PECK MD-YON Primary Care Physician - JUDITH BOSTON MD-[facility] Referring Physician - FIONA PECK MD-INT Your Diagnosis Other specified abnormal findings of blood chemistry, Other specified abnormal findings of blood chemistry Weakness Discharge Vitals Temperature 36.4 ??C Heart Rate (Monitored) 97 Respiratory Rate 16 Blood Pressure 167/83 What to do next Instructions From Your Care Team [facility] Address: [address] [place] [address] [place] [address] Please STOP taking Lisinopril Follow-Up Appointments Follow Up with Dewaterer Operator When 02/04/2019 08:15 AM EDT Comments Appointment has been made with Chelsea MA. Please bring ID, insurance card and list of current medications. Where: [address] , [address] [place], [place] [phone] Follow Up with [facility] cardiac rehab When In 6 weeks Comments [...] parent to child (inherited). ??? Are of -[place], , , , or descent. What are [...] by your health care provider. ??? Take hqat-cwu-lksdrwy and prescription medicines only as told by [...] 07/12/2008 Document Revised: 02/10/2018 Document Reviewed: 05/21/2017 [employer] Interactive Patient Education ?? 2019 [employer]. Chronic Kidney Disease, Adult Chronic kidney disease [...] these instructions at home: Medicines ??? Take gbwt-zai-toqruhs and prescription medicines only as told by [...] 09/17/2010 Document Revised: 07/28/2017 Document Reviewed: 07/28/2017 [employer] Interactive Patient Education ?? 2019 [employer] Carbohydrate Counting for Diabetes Mellitus, Adult [...] for every person. A diet and nutrition manager (registered dietitian) can help you make a [...] of carbohydrates: ? hamburger bun or ?? Indonesian muffin. ? oz (15 mL) syrup. ? [...] foods that contain carbohydrates: ??? Rice. ??? [place]. ??? Milk. ??? Strawberries. 2. Calculate how [...] your diabetes. ??? A diet and nutrition manager (registered dietitian) can help you make a meal plan and calculate how many carbohydrates you should have at each meal and snack. This information is not intended to replace advice given to you by your health care provider. Make sure you discuss any questions you have with your health care provider. Document Released: 2006 Document Revised: 12/31/2017 Document Reviewed: 12/04/2016 [employer]Well[employer] Interactive Patient Education ?? 2019 [employer] Diabetes Mellitus and Skin Care Diabetes [...] (acanthosis nigricans). This typically affects people of -Belizean and [place]an-Mongolian descent. ??? Red, raised, scar-like tissue that may itch, feel painful, or develop into a wound (necrobiosis lipoidica). ??? Blisters on feet, toes, hands, or fingers. ??? Thickened, wax-like areas of skin that usually occur on the hands, forehead, or toes (digital sclerosis). ??? Brown or red ring-shaped or ujxs-iuun-amvpvy patches of skin on the ears or [...] 12/03/2016 Document Revised: 01/01/2018 Document Reviewed: 12/03/2016 [employer] Interactive Patient Education ?? 2019 [employer] Diabetes Mellitus and Nutrition, Adult When [...] you work with a diet and nutrition manager (dietitian) to make a meal plan that [...] provider. ??? Work with a counselor or senior health educator to identify strategies to manage stress and any emotional and social challenges. Questions to ask a health care provider ??? Do I need to meet with a senior health educator? Do I need to meet with a dietitian? What number can I call if I have questions? When are the best times to check my blood glucose? Where to find more information: ??? [place] Diabetes Association: diabetes.org ??? Academy of Nutrition and Dietetics: www.eatright.org ??? National [employer] of Diabetes and Digestive and Kidney Diseases (NIH): www.niddk.nih.gov Summary ??? A healthy meal plan will help you control your blood glucose and maintain a healthy lifestyle. ??? Working with a diet and nutrition manager (dietitian) can help you make a meal [...] 03/20/2006 Document Revised: 01/21/2018 Document Reviewed: 07/28/2017 [employer] Interactive Patient Education ?? 2019 [employer]chemy. Hypertension Hypertension is another name for high [...] doctor. This is important. Medicines ??? Take jzat-mbw-vrbsfsq and prescription medicines only as told by [...] 12/09/2008 Document Revised: 05/21/2017 Document Reviewed: 05/21/2017 [employer] Interactive Patient Education ?? 2019 [employer]. Coronary Artery Disease, Male Coronary artery disease (CAD) is a condition in which the arteries that lead to the heart (coronary arteries) become narrow or blocked. The narrowing or blockage can lead to decreased blood flow to the heart. Prolonged reduced blood flow can cause a heart attack (myocardial infarction or SD). This condition may also be called coronary [...] these instructions at home: Medicines ??? Take ximr-wjg-jczoghj and prescription medicines only as told by [...] 01/18/2015 Document Revised: 06/13/2017 Document Reviewed: 06/13/2017 [employer] Interactive Patient Education ?? 2019 [employer]chemy. insulin isophane and insulin regular (IN horton [...] may report side effects to FDA at 3-976-YUP-2371. What other drugs will affect insulin isophane and insulin regular? This insulin may not work as well when you use other medicines at the same time. This includes prescription and pffx-uws-oipqrsr medicines, vitamins, and herbal products. Some drugs [...] to ensure that the information provided by [employer]. ('Multum') is accurate, up-to-date, and complete, but no guarantee is made to that effect. Drug information contained herein may be time sensitive. In[employer] information has been compiled for use by healthcare practitioners and consumers in the [place] and therefore In[employer] does not warrant that uses outside of the [place] are appropriate, unless specifically indicated otherwise. [employer]'s drug information does not endorse drugs, diagnose patients or recommend therapy. [employer] drug information is an informational resource designed [...] effective or appropriate for any given patient. [facility] does not assume any responsibility for any aspect of healthcare administered with the aid of information [facility] provides. The information contained herein is not intended to cover all possible uses, directions, precautions, warnings, drug interactions, allergic reactions, or adverse effects. If you have questions about the drugs you are taking, check with your doctor, nurse or pharmacist. Copyright 1893-6738 [employer]. Version: 8.01. Revision Date: 03/11/2018.hydralazine (dmitry payton) [...] may report side effects to FDA at 1-387-QVA-3508. What other drugs will affect hydralazine? Tell your doctor about all your current medicines and any you start or stop using, especially: ? diazoxide (an injectable blood pressure medication); or ?? an MAO inhibitor--isocarboxazid, linezolid, methylene blue injection, phenelzine, rasagiline, selegiline, tranylcypromine, and others. This list is not complete. Other drugs may interact with hydralazine, including prescription and fcrl-wwr-nfynfdb medicines, vitamins, and herbal products. Not all [...] Visit Diagnoses Not on filedocumented in this encounter"
--- OUTSIDE RECORDS SUMMARY | 2025-01-20 11:21 | XMS_ITS | Encounter Summary ---
Author Organization [employer] ([place], [place], [place], [place]) Address [address] [place] [address] Care Team Providers Care Multiple Needle Stitcher Name Role Phone Unavailable Primary Care Provider Unavailabl e Encounter Details Date Type Department Care Team (Late st Contact Info) Description 02/02/2019 Transcribed Document [facility] [place] [facility] [place] [address] ProviderEmilia MD [address] [place], [place] [address] Social History Tobacco Use Types Packs/Day Years [...] On: 02/02/2019 12:04 EDT by ANNETTE ENCARNACION RN-Protection Agent Final Discharge Planning Discharge Arrangements : Patient [...] : Yes Discharge To Care Management : Home/Residential/Prison or Self Care -01 ANNETTE ENCARNACION, RN-Protection Agent - 02/02/2019 12:04 EDT Final Narrative Note Final Narrative Note : pt discharge home with . appointment with accounting reconciliation clerk made on 02/04 at 0815, with ANIL Lopez. [address]. pt for dc with 70/30 insulin and [place] to f/u with pt's home rgiment of humalin and assistance with supplies and affordability. ANNETTE ENCARNACION, TONIO-Protection Agent - 02/02/2019 12:04 EDT documented in this encounter Plan of Treatment Not on file documented as of this encounter Visit Diagnoses Not on filedocumented in this encounter
--- OUTSIDE RECORDS SUMMARY | 2025-01-20 11:21 | XMS_ITS | Encounter Summary ---
Author Organization [employer] ([place], [place], [place], [place]) Address [address] [place] [address] Care Team Providers Care Automobile Mechanic Motor Name Role Phone Unavailable Primary Care Provider Unavailabl e Encounter Details Date Type Department Care Team (Late st Contact Info) Description 02/01/2019 Transcribed Document [facility] [place] [facility] Medicine [facility] [place] [address] ProviderEmilia MD [address] [place], [place] [phone] Social History Tobacco Use Types Packs/Day Years [...] Numbers : Insurance 1 Health Plan: [employer] Policy Number: [id number] Authorization Number: Insurance Primary Name : [employer] Policy Number: [id number] Authorization Status-Primary : Awaiting callback Authorized Service Begin Date-Primary : 01/29/2019 EDT Authorization Comments-Primary : rec'd call from Roque/caleb this am re: does not meet IP, did we want to change to OBS or have it routed to medical file clerk? Pt had heart cath planned for today, asked him to wait for outcome of C. Cath unremarkable per cards note, discussed case w/ DMc who requests leave as IP and have it routed to med director. Call back to [facility] to request route to MD. Historical Authorization Comments-Primary : Comment 1: Received voice mail on main line from Doris hanson [facility] stating that pt OBS, not meeting for INPT and we need to send more clinical if we have any. # [phone] fx# [phone] Made Cayla De Jesus aware as she is following the patient today. (MALIHA DOSHI, Natural Gas Plant Supervisor 02/01/2019 13:11) Comment 2: Per Star notes Notify Payer of Admission - InProgress - faxed clinicals via cerner. (MIRYAM KOTHARI RN 01/30/2019 13:46) CAYLA CHAU, RN-Utilization Review - 02/01/2019 14:35 EDT documented in this encounter Plan of Treatment Not on file documented as of this encounter Visit Diagnoses Not on filedocumented in this encounter
--- OUTSIDE RECORDS SUMMARY | 2025-01-20 11:21 | XMS_ITS | Encounter Summary ---
Author Organization [employer] ([place], [place], [place], [place]) Address [address] [place] [address] Care Team Providers Care Compensation Director Name Role Phone Unavailable Primary Care Provider Unavailabl e Encounter Details Date Type Department Care Team (Late st Contact Info) Description 02/02/2019 Transcribed Document [facility] [place] Family Medicine [facility] [place] [address] ProviderEmilia MD [address] [place] [phone] Social History Tobacco Use Types Packs/Day Years [...] 01/29/19 22:08:00 EDT, Bilateral, Continuous Order (KASSANDRA DAVSI) Sequential Compression Device Start: 01/29/19 21:42:00 EDT, [...] # 0.70 x10(3)/uL (Low) 02/02/2019 03:25 EDT [place] % 4.3 % 02/02/2019 03:25 EDT [place] # 0.35 K/uL 02/02/2019 03:25 EDT Eos [...]
--- OUTSIDE RECORDS SUMMARY | 2025-01-20 11:21 | XMS_ITS | Encounter Summary ---
Author Organization [employer] ([place], [place], [place], [place]) Address [address] [place] [address] Care Team Providers Care Tool Room Gear Machine Operator Name Role Phone Unavailable Primary Care Provider Unavailabl e Encounter Details Date Type Department Care Team (Late st Contact Info) Description 02/02/2019 Transcribed Document [facility] [place] [facility] [place] [address] ProviderEmilia MD [address] [place], [place] [id number] Social History Tobacco Use Types Packs/Day Years [...] History of obstructive sleep apnea / IMO [id number] / Confirmed, Active Problems (6) CKD (chronic kidney disease) Diabetes mellitus GERD (gastroesophageal reflux disease) History of obstructive sleep apnea [place] (hard of hearing) Hypertension Objective VS/Measurements Vitals [...]
--- OUTSIDE RECORDS SUMMARY | 2025-01-20 11:21 | XMS_ITS | Encounter Summary ---
Author Organization [employer] ([place], [place], [place], [place]) Address [address] [place] [address] Care Team Providers Care Nursing Home Administrator Name Role Phone Unavailable Primary Care Provider Unavailabl e Encounter Details Date Type Department Care Team (Late st Contact Info) Description 02/04/2019 Transcribed Document [facility] [place] [facility] [address] ProviderEmilia MD [address] [place], [place] [phone] Social History Tobacco Use Types Packs/Day Years [...]
--- OUTSIDE RECORDS SUMMARY | 2025-01-20 11:21 | XMS_ITS | Encounter Summary ---
Author Organization [employer] ([place], [place], [place], [place]) Address [address] [place] [address] Care Team Providers Care Television Antenna Installer Name Role Phone Unavailable Primary Care Provider Unavailabl e Encounter Details Date Type Department Care Team (Late st Contact Info) Description 02/01/2019 Transcribed Document [facility] [place] Medicine [facility] [place] [address] ProviderEmilia MD [address] [place] [phone] Social History Tobacco Use Types Packs/Day Years [...] 76 mg/dL 01/31/2019 14:02 EDT Protein Ur [place] 14 mg/dL 01/31/2019 14:02 EDT WBC 5.9 [...] Lymph # 1.47 x10(3)/uL 02/01/2019 05:17 EDT [place] % 7.9 % 02/01/2019 05:17 EDT [place] # 0.47 K/uL 02/01/2019 05:17 EDT Eos [...]
--- OUTSIDE RECORDS SUMMARY | 2025-01-20 11:21 | XMS_ITS | Encounter Summary ---
Author Organization [employer] ([place], [place], [place], [place]) Address [address] [place] [address] Care Team Providers Care Rigger Chief Name Role Phone Unavailable Primary Care Provider Unavailabl e Encounter Details Date Type Department Care Team (Late st Contact Info) Description 02/02/2019 Transcribed Document [facility] [place] Family Medicine [facility] [place] [address] ProviderEmilia MD [address] [place], [place] [phone] Social History Tobacco Use Types Packs/Day Years [...]
--- OUTSIDE RECORDS SUMMARY | 2025-01-20 11:21 | XMS_ITS | Encounter Summary ---
Author Organization [employer] ([place], [place], [place], [place]) Address [address] [place] [address] Care Team Providers Care Director Personal Name Role Phone Unavailable Primary Care Provider Unavailabl e Encounter Details Date Type Department Care Team (Late st Contact Info) Description 02/02/2019 Transcribed Document [facility] [place] [address] [place] [address] ProviderEmilia MD [address] [place] [phone] Social History Tobacco Use Types Packs/Day Years [...]
--- OUTSIDE RECORDS SUMMARY | 2025-01-20 11:21 | XMS_ITS | Encounter Summary ---
Author Organization [employer] ([place], [place], [place], [place]) Address [address] [place] [address] Care Team Providers Care Manager Utilization Name Role Phone Unavailable Primary Care Provider Unavailabl e Encounter Details Date Type Department Care Team (Late st Contact Info) Description 05/18/2019 Transcribed Document [facility] [place] [facility] [place] [address] ProviderEmilia MD [address] [place], [place] [phone] Social History Tobacco Use Types Packs/Day Years Used Date Smoking Tobacco: Never Assessed Sex and Gender Information Value Date Recorded Sex Assigned at Not on file Legal Sex Male 5:19 PM CDT Gender Identity Not on file Sexual Orientation Not on file documented as of this encounter Miscellaneous Notes * Cerner Conversion Note - Historical ProviderMD - 05/18/2019 6:17 PM EMERGENCY DETAIL DRIVER ED Discharge Entered On: 05/18/2019 18:17 EST [...]
--- OUTSIDE RECORDS SUMMARY | 2025-01-20 11:21 | XMS_ITS | Encounter Summary ---
Author Organization [employer] ([place], [place], [place], [place]) Address [address] [place] [address] Care Team Providers Care Iron Worker Apprentice Name Role Phone Unavailable Primary Care Provider Unavailabl e Encounter Details Date Type Department Care Team (Late st Contact Info) Description 02/01/2019 Transcribed Document [facility] [place] Family Medicine [address] [place] [address] ProviderEmilia MD [address] [place], [place] [id number] Social History Tobacco Use Types Packs/Day Years [...] Spiritual Care Spiritual Care Referred by : Food And Beverage Manager initiated Reason for Visit : Initial Ministry Provided to : Patient, Family/Significant other Intervention/Comment/Summary Points : 3 day visit with Johnathan and his . Bahai Preference : Yazdanism DANYEL NICHOLSON Chaplain - 02/01/2019 19:31 EDT documented in this encounter Plan of Treatment Not on file documented as of this encounter Visit Diagnoses Not on filedocumented in this encounter
--- OUTSIDE RECORDS SUMMARY | 2025-01-20 11:21 | XMS_ITS | Encounter Summary ---
Author Organization [employer] ([place], [place], [place], [place]) Address [address] [place] [address] Care Team Providers Care Filter Worker Name Role Phone Unavailable Primary Care Provider Unavailabl e Encounter Details Date Type Department Care Team (Late st Contact Info) Description 02/01/2019 Transcribed Document [facility] [place] [address] ProviderEmilia MD [address] [place], [place] [phone] Social History Tobacco Use Types Packs/Day Years [...]
--- OUTSIDE RECORDS SUMMARY | 2025-01-20 11:21 | XMS_ITS | Encounter Summary ---
Author Organization [employer] ([place], [place], [place], [place]) Address [address] [place] [address] Care Team Providers Care Senior Power Plant Operator Name Role Phone Unavailable Primary Care Provider Unavailabl e Encounter Details Date Type Department Care Team (Late st Contact Info) Description 02/02/2019 Transcribed Document [facility] [place] [facility] [place] [address] ProviderEmilia MD [address] [place], [place] [phone] Social History Tobacco Use Types Packs/Day Years [...]
--- OUTSIDE RECORDS SUMMARY | 2025-01-20 11:21 | XMS_ITS | Encounter Summary ---
Author Organization [employer] ([place], [place], [place], [place]) Address [address] [place] [address] Care Team Providers Care Weed Eradicator Name Role Phone Unavailable Primary Care Provider Unavailabl e Encounter Details Date Type Department Care Team (Late st Contact Info) Description 01/31/2019 Transcribed Document [facility] [place] Family Medicine [facility] [place] [address] ProviderEmilia MD [address] [place], [place] [address] Social History Tobacco Use Types Packs/Day Years [...] History of obstructive sleep apnea / IMO [id number] / Confirmed, Active Problems (6) CKD (chronic kidney disease) Diabetes mellitus GERD (gastroesophageal reflux disease) History of obstructive sleep apnea [place] (hard of hearing) Hypertension Objective VS/Measurements Vitals [...]
--- OUTSIDE RECORDS SUMMARY | 2025-01-20 11:21 | XMS_ITS | Encounter Summary ---
Author Organization [employer] ([place], [place], [place], [place]) Address [address] [place] [address] Care Team Providers Care Large Animal Veterinarian Name Role Phone Unavailable Primary Care Provider Unavailabl e Encounter Details Date Type Department Care Team (Late st Contact Info) Description 02/02/2019 Transcribed Document [facility] [place] [facility] [place] [address] ProviderEmilia MD [address] [place], [place] [id number] Social History Tobacco Use Types Packs/Day Years [...] cause a heart attack (myocardial infarction or [place]). This condition may also be called coronary [...] these instructions at home: Medicines ??? Take buvl-kih-lbghxtd and prescription medicines only as told by [...] 01/18/2015 Document Revised: 06/13/2017 Document Reviewed: 06/13/2017 [employer] Interactive Patient Education ? 2019 [employer] Endocrinology Carbohydrate Counting for Diabetes Mellitus, [...] different for every person. A diet and piercing specialist (registered dietitian) can help you make [...] of carbohydrates: ? hamburger bun or ? Kyr[place]z muffin. ? oz (15 mL) syrup. ? [...] foods that contain carbohydrates: ??? Rice. ??? [place]. ??? Milk. ??? Strawberries. 2. Calculate how [...] manage your diabetes. ??? A diet and piercing specialist (registered dietitian) can help you make a meal plan and calculate how many carbohydrates you should have at each meal and snack. This information is not intended to replace advice given to you by your health care provider. Make sure you discuss any questions you have with your health care provider. Document Released: 2006 Document Revised: 12/31/2017 Document Reviewed: 12/04/2016 [employer] Interactive Patient Education ? 2019 [employer] Diabetes Mellitus and Skin Care Diabetes [...] (acanthosis nigricans). This typically affects people of -Malagasy and Malagasy- descent. ??? Red, raised, scar-like tissue that may itch, feel painful, or develop into a wound (necrobiosis lipoidica). ??? Blisters on feet, toes, hands, or fingers. ??? Thickened, wax-like areas of skin that usually occur on the hands, forehead, or toes (digital sclerosis). ??? Brown or red ring-shaped or plns-pnyu-lyoddr patches of skin on the ears or [...] 12/03/2016 Document Revised: 01/01/2018 Document Reviewed: 12/03/2016 [employer] Interactive Patient Education ? 2019 [employer] Diabetes Mellitus and Nutrition, Adult When [...] that you work with a diet and piercing specialist (dietitian) to make a meal plan [...] glucose? Where to find more information: ??? [place] Diabetes Association: diabetes.org ??? Academy of Nutrition and Dietetics: www.eatright.org ??? National Roland of Diabetes and Digestive and Kidney Diseases (NIH): www.niddk.nih.gov Summary ??? A healthy meal plan will help you control your blood glucose and maintain a healthy lifestyle. ??? Working with a diet and piercing specialist (dietitian) can help you make a [...] 03/20/2006 Document Revised: 01/21/2018 Document Reviewed: 07/28/2017 [employer] Interactive Patient Education ? 2019 [employer]. Nephrology Diabetic Nephropathy Diabetic nephropathy is kidney [...] parent to child (inherited). ??? Are of -Malagasy, , , , or descent. What are [...] by your health care provider. ??? Take khoh-fzq-ydnipwc and prescription medicines only as told by [...] 07/12/2008 Document Revised: 02/10/2018 Document Reviewed: 05/21/2017 [employer] Interactive Patient Education ? 2019 [employer]. Chronic Kidney Disease, Adult Chronic kidney disease [...] these instructions at home: Medicines ??? Take pvpl-mhp-jtrxsvo and prescription medicines only as told by [...] 09/17/2010 Document Revised: 07/28/2017 Document Reviewed: 07/28/2017 [employer] Interactive Patient Education ? 2019 [employer] Hypertension Hypertension is another name for [...] doctor. This is important. Medicines ??? Take yakq-onb-wuhbttj and prescription medicines only as told by [...] 12/09/2008 Document Revised: 05/21/2017 Document Reviewed: 05/21/2017 [employer] Interactive Patient Education ? 2019 [employer] documented in this encounter Plan of Treatment Not on file documented as of this encounter Visit Diagnoses Not on filedocumented in this encounter
--- OUTSIDE RECORDS SUMMARY | 2025-01-20 11:21 | XMS_ITS ---
Author Organization [facility] Care Team Providers Care Human Resources Supervisor Name Role Phone Martina Reed Unavailable Unavailable JORGE RUBY Unavailable Unavailable Elvia Mcmahon Unavailable Unavailab Esperanza Mack Unavailable Unavailable Nestor Infante Unavailable Unavailable Allergies and adverse reactions Code CodeSystem Substance Reaction Severity StartDate Concern Status 7476 RXNORM Nitroprusside Unknown 11/13/2023 active Care Team Name Role Address Phone Organization Dates JORGE RUBY [facility] [address], [place], [address], [place] (Office): : [facility] 11/13/2023 - 01/07/2024 Martina Reed [address], [place], [address], [place] (Office): : : [facility] 11/13/2023 - 01/07/2024 Elvia Mcmahon [address], [place], [address], [facility] (Office): : : [facility] 11/13/2023 - 01/07/2024 Esperanza Barbour [address], [place], [place], [facility], [facility] (Office): : : [facility] 11/13/2023 - 01/07/[address] (Office): [facility] 11/13/2023 - 01/07/2024 Immunizations Immunization Status Vaccine Details Vaccine Code CodeSystem Date Notes Influenza cancelled Influenza, split virus, trivalent, injectable, contains preservative 141 CVX created date: 11/14/2023 consent date: 11/14/2023 TB 2 Step Mantoux Skin Test completed tuberculin skin test; purified protein derivative solution, intradermal Given 0.1 mg intradermally Step 2 of Multi-step with next step required 96 CVX created date: 11/24/2023 consent date: 11/24/2023 administer ed date: 11/24/2023 Educated by Ilan ELIZALDE on 11/24/2023 TB 2 Step [place]oux Skin Test completed tuberculin skin test; purified protein derivative solution, intradermal Given 0.1 ml Right Forearm intradermally Step 1 of Multi-step with next step required 96 CVX created date: 11/14/2023 consent date: 11/14/2023 administer ed date: 11/14/2023 Pneumovax cancelled pneumococcal vaccine, unspecified formulation 109 CVX created date: 11/14/2023 consent date: 11/14/2023 Mental Status Section Date Assessment Total Score Description 01/07/2024 CAM 0 No delirium ind icated 12/12/2023 BIMS 15 cognitively int act CAM 0 No delirium ind icated PHQ-9 12 moderate depres tianna Problems Problem # Description Date of onset Resolved Date Code CodeSystem Concern Status 1 OSTEOMYELITIS, UNSPECIFIED 12/06/[address] active 2 OTHER REDUCED MOBILITY 12/06/[address] active 3 ANEMIA, UNSPECIFIED 11/13/[address] active 4 ATHEROSCLEROTIC HEART DISEASE OF [place] CORONARY ARTERY WITHOUT ANGINA PECTORIS 11/13/[address] active 5 BENIGN PROSTATIC HYPERPLASIA WITH LOWER URINARY TRACT SYMPTOMS 11/13/[address] active 6 CHRONIC KIDNEY DISEASE, UNSPECIFIED 11/13/[address] active 7 DEPRESSION, UNSPECIFIED 11/13/[address] active 8 ESSENTIAL (PRIMARY) HYPERTENSION 11/13/[address] active 9 GASTRO-ESOPHAGEAL REFLUX DISEASE WITHOUT ESOPHAGITIS 11/13/[address] active 10 HYPERLIPIDEMIA, UNSPECIFIED 11/13/[address] active 11 HYPOTHYROIDISM, UNSPECIFIED 11/13/[address] active 12 INSOMNIA, UNSPECIFIED 11/13/[address] active 13 MORBID (SEVERE) OBESITY DUE TO EXCESS CALORIES 11/13/1911/13/[address] completed 14 MUSCLE WEAKNESS (GENERALIZED) 11/13/[address] active 15 OBSTRUCTIVE SLEEP APNEA (ADULT) (PEDIATRIC) 11/13/[address] active 16 OSTEOMYELITIS, UNSPECIFIED 11/13/19 24 11/13/[address] completed 17 OTHER ACUTE OSTEOMYELITIS, LEFT ANKLE AND FOOT 11/13/[address] active 18 OTHER ACUTE OSTEOMYELITIS, LEFT TIBIA AND FIBULA 11/13/[address] active 19 POST-TRAUMATIC STRESS DISORDER, UNSPECIFIED 11/13/[address] active 20 TYPE 2 DIABETES MELLITUS WITH DIABETIC NEUROPATHY, UNSPECIFIED 11/13/[address] active 21 UNSPECIFIED COMBINED SYSTOLIC (CONGESTIVE) AND DIASTOLIC (CONGESTIVE) HEART FAILURE 11/13/[address] active 22 HEMIPLEGIA AND HEMIPARESIS FOLLOWING CEREBRAL INFARCTION AFFECTING RIGHT DOMINANT SIDE 09/04/[address] active Reason for Referral No Reasons for Referral Entered Social History Social History Observation Description Start Date End Date Code Code System Current Smoking Status Tobacco smoking consumption unknown 091419697 SNOMED CT Sex Assigned At Male 1955 26047-2 [facility] Gender Identity Male [id number] [address] Vital Signs Code Code System Vitals Name Values and Units Timing Information 8867-4 [facility] Heart rate Value=72.0 Units=/min 09/2023 8462-4 [facility] Blood Pressure-Diastolic Value=78 Un its=mmHg 01/07/2024 8480-6 [facility] Blood Pressure-Systolic Ohtll=779 Un its=mmHg 01/07/2024 9279-1 [facility] Respiratory Rate Value=18.0 Units=/m in 01/02/2024 8310-5 [facility] Body Temperature Value=97.8 Units= F 01/02/2024 63984-7 [facility] O2 % BldC Oximetry Value=94.0 Units= % 01/02/2024 90526-9 [facility] Pain Level Value=0.0 01/02/2024 88643-7 [facility] Weight Agwti=842.4 Units=Lbs 05/2024 8302-2 [facility] Height Value=69.0 Units=Inches 11/13/2023
--- OUTSIDE RECORDS SUMMARY | 2025-01-20 11:21 | XMS_ITS | Encounter Summary ---
Author Organization [employer] ([place], [place], [place], [place]) Address [address] [place] [address] Care Team Providers Care Bookmaker Map Name Role Phone Unavailable Primary Care Provider Unavailabl e Encounter Details Date Type Department Care Team (Late st Contact Info) Description 02/01/2019 Transcribed Document [facility] [place] Medicine [facility] [place] [address] ProviderEmilia MD [address] [place], [place] [phone] Social History Tobacco Use Types Packs/Day Years Used Date Smoking Tobacco: Never Assessed Sex and Gender Information Value Date Recorded Sex Assigned at Not on file Legal Sex Male 5:19 PM CDT Gender Identity Not on file Sexual Orientation Not on file documented as of this encounter Miscellaneous Notes * [employer] Conversion Note - Historical ProviderMD - 02/01/2019 2:00 AM CDT Customer Care Manager Details Entered On: 02/01/2019 4:35 EDT Performed [...]
--- OUTSIDE RECORDS SUMMARY | 2025-01-20 11:21 | XMS_ITS | Encounter Summary ---
Author Organization [employer] ([place], [place], [place], [place]) Address [address] [place] [address] Care Team Providers Care Fashion Design Professor Name Role Phone Unavailable Primary Care Provider Unavailabl e Encounter Details Date Type Department Care Team (Late st Contact Info) Description 01/31/2019 Transcribed Document [facility] [place] Family Medicine [address] [place] [address] ProviderEmilia MD [address] [place], [place] [phone] Social History Tobacco Use Types Packs/Day Years [...]
--- OUTSIDE RECORDS SUMMARY | 2025-01-20 11:21 | XMS_ITS | Encounter Summary ---
Author Organization [employer] ([place], [place], [place], [place]) Address [address] [place] [address] Care Team Providers Care Electric Motor Winders Assembler Name Role Phone Unavailable Primary Care Provider Unavailabl e Encounter Details Date Type Department Care Team (Late st Contact Info) Description 05/18/2019 Transcribed Document [facility] [place] Family Medicine [facility] [place] [address] ProviderEmilia MD [address] [place] [address] Social History Tobacco Use Types Packs/Day Years Used Date Smoking Tobacco: Never Assessed Sex and Gender Information Value Date Recorded Sex Assigned at Not on file Legal Sex Male 5:19 PM CDT Gender Identity Not on file Sexual Orientation Not on file documented as of this encounter Miscellaneous Notes * Cerner Conversion Note - Emilia St MD - 05/18/2019 6:16 PM LOADING MANAGER [facility] [place], [place] [id number] JOHNATHAN PARHAM :1955 Visit Time:05/18/2019 Your Visit [...] Within 2 to 3 days Where: [address] [place] [address]- Business (1) Allergies Contrast Dye Immunizations This [...] range between ( 0.0 and 7.0 ) [place] #: 0.45 K/uL -- Normal range between ( 0.16 and 1.00 ) [place] #: 0.15 x10(3)/uL -- Normal range between ( 0.00 and 0.80 ) [place] %: 8.3 % -- Normal range between [...] these instructions at home: Medicines ??? Take wcbb-vvv-echvuqh and prescription medicines only as told by [...] that you work with a diet and conservation specialist (registered dietitian) to educate you about [...] 2006 Document Revised: 07/28/2017 Document Reviewed: 07/28/2017 [employer] Interactive Patient Education ?? 2019 [employer] Emergency Awareness and Preventative Care STROKE [...] Assistance with quitting is available by contacting 4-787-PDBVNOW. This is a free resource providing counseling, [...] was given the opportunity to ask questions. Patient/Fraud Manager Name: Patient/Fraud Manager Signature: Relationship to Patient: Clinician/Hospital Fraud Manager Signature: Please Provide a Telephone Number Where You Can Be Reached: Is it Permissible To Leave a Message? Date: documented in this encounter Plan of Treatment Not on file documented as of this encounter Visit Diagnoses Not on filedocumented in this encounter
--- OUTSIDE RECORDS SUMMARY | 2025-01-20 11:21 | XMS_ITS | Encounter Summary ---
Author Organization [employer] ([place], [place], [place], [place]) Address [address] [place] [address] Care Team Providers Care Orchid Hand Name Role Phone Unavailable Primary Care Provider Unavailabl e Encounter Details Date Type Department Care Team (Late st Contact Info) Description 02/01/2019 Transcribed Document [facility] [place] [address] ProviderEmilia MD [address] [place], [place] [phone] Social History Tobacco Use Types Packs/Day Years [...]
[2025-01-20 11:23] LABS: Adenovirus,PCR Not Detected (NotDetected); Chlamydophila Pneumoniae, PCR Not Detected (NotDetected); Coronavirus 19, PCR Not Detected (NotDetected); Coronovirus HKU1,PCR Not Detected (NotDetected); Influenza A, PCR Not Detected (NotDetected); Influenza AH1, 2009 Not Detected (NotDetected); Influenza AH1, PCR Not Detected (NotDetected); Influenza AH3,PCR Not Detected (NotDetected); Influenza B, PCR Not Detected (NotDetected); Mycoplasma Pneumoniae, PCR Not Detected (NotDetected); Parainfluenza 1, PCR Not Detected (NotDetected); Parainfluenza 2, PCR Not Detected (NotDetected); Parainfluenza 3, PCR Not Detected (NotDetected); Parainfluenza 4, PCR Not Detected (NotDetected)
[2025-01-20 11:29] LABS: Alanine Aminotransferase 13 U/L (12-78); Albumin Level 3.8 g/dl (3.5-5.0); Albumin/Globulin Ratio 1.2 (1.1-1.8); Alkaline Phosphatase 97 U/L (38-126); Anion Gap 16.6 mEq/L (5-15); Aspartate Amino Transferase 23 U/L (17-59); Bilirubin,Total 1.2 mg/dl (0.2-1.3); Blood Urea Nitrogen 19 mg/dl (9-20); Calcium 9.2 mg/dl (8.4-10.2); Carbon Dioxide 26 mmol/L (22.0-30.0); Chloride 100 mmol/L (98-107); Creatinine Clearance Estimated 61 mL/min (50-200); Creatinine,Serum 1.80 mg/dl (0.66-1.25); Estimated Glomerular Filt Rate 38 ml/min (>60); GFR (African American) 46 ML/MIN (>60); Globulin 3.1 g/dL (1.3-3.2); Glucose 188 mg/dl (74-100); Magnesium 1.7 mg/dl (1.6-2.3); Potassium 4.6 mmoL/L (3.5-5.1); Sodium 138 mmol/L (136-145); Total Protein,Serum 6.9 g/dl (6.3-8.2)
[2025-01-20 11:34] LABS: C-Reactive Protein 36.5 mg/L (0-4)
[2025-01-20 11:35] LABS: D-Dimer 1.07 ug/mL (0.0-0.5)
[2025-01-20 11:40] LABS: NT Pro Brain Natriuretic Pep. 4110 pg/mL (0-125)
[2025-01-20 11:42] LABS: Troponin I < 0.01 ng/ml (0.00-0.034)
[2025-01-20] MEDS: AMOXICILLIN/CLAVULANATE POTASSIUM 875/125MG TABLET 1 EACH PO (13:36)
[2025-01-20] MEDS: AZITHROMYCIN 500 MG in 0.9 % SODIUM CHLORIDE 250 ML 250 MG IV (13:38)
[2025-01-20] MEDS: FUROSEMIDE 40 MG TABLET 20 MG PO (13:39)
[2025-01-20 14:17] LABS: Troponin I < 0.01 ng/ml (0.00-0.034)
--- NOTE | 2025-01-20 14:20 | CARE MANAGER ---
Spoke with Janey in ER. The insurance wanted to know if he had tried pills or liquid. She spoke with Dr. Milian and he states he will change it to pills instead of packets.
== END 2025-01-20 15:19 | disposition home or self-care (01) ==
PROVIDERS: Emergency Provider Student in an Organized Health Care Education/Training Program; PCP Nurse Practitioner Family
DX: J18.9 Pneumonia, unspecified organism (principal); R79.89 Other specified abnormal findings of blood chemistry; G47.33 Obstructive sleep apnea (adult) (pediatric); E83.42 Hypomagnesemia; E66.9 Obesity, unspecified; I10 Essential (primary) hypertension
CPT/HCPCS: 0223U; 71046; 80053; 83735; 83880; 84484; 85025; 85378; 86140; 87633; 93005; 96374; 99285; J0456; J7050

== ENCOUNTER 2025-02-01 16:02 | Outpatient (CLI) | payer MEDICARE, SELFPAY ==
--- OUTSIDE RECORDS SUMMARY | 2025-02-01 16:04 | XMS_ITS | Clinical Summary ---
Author Organization [facility] Address [address] [id number] Care Team Providers Care Coating Mixer Supervisor Name Role Phone Kadie Chen MD Primary Care Provider [phone] Allergies Active Allergy Reactions Criticality Noted Date Comments Contrast Dye (Echo Or Unknown Ct/Mr) Hives 05/14/2017 30 years ago with IV contrast Medications clopidogrel (PLAVIX) 75 MG tablet Take 75 mg by mouth Every Morning. Active lithium carbonate 300 MG capsule Take 300 mg by mouth 2 (Two) Times a Day With Meals. Active glipiZIDE (GLUCOTROL) 10 MG 24 hr tablet Take 10 mg by mouth 2 (Two) Times a Day. Active amLODIPine (NORVASC) 10 MG tablet Take 10 mg by mouth Every Morning. Active levothyroxine (SYNTHROID, LEVOTHROID) 75 MCG tablet Take 75 mcg by mouth Every Morning. Active isosorbide mononitrate (IMDUR) 30 MG 24 hr tablet Take 30 mg by mouth Every Morning. Active lisinopril (PRINIVIL,ZESTRI L) 10 MG tablet Take 10 mg by mouth Every Night. Active omeprazole (priLOSEC) 20 MG capsule Take 20 mg by mouth Every Morning. Active busPIRone (BUSPAR) 7.5 MG tablet Take 7.5 mg by mouth 3 (Three) Times a Day. Active metFORMIN (GLUCOPHAGE) 500 MG tablet Take 1,000 mg by mouth 2 (Two) Times a Day With Meals. Active aspirin 81 MG EC tablet Take 81 mg by mouth Every Morning. Active atorvastatin (LIPITOR) 40 MG tablet Take 1 tablet by mouth Every Morning. 30 tablet 6 03/28/2017 11:49 AM EDT 03/28/2017 Active SITagliptin (JANUVIA) 100 MG tablet Take 100 mg by mouth Daily. Active OLANZapine (zyPREXA) 5 MG tablet Take 5 mg by mouth Every Night. Active carvedilol (COREG) 6.25 MG tablet Take 1 tablet by mouth 2 (Two) Times a Day With Meals. 180 tablet 3 03/13/2018 Active omeprazole (priLOSEC) 40 MG capsule TAKE 1 CAPSULE EVERY DAY 90 capsule 3 07/16/2023 Active Active Problems Problem Noted Date Diagnosed Date NEMO (acute kidney injury) 06/25/2017 Carotid artery stenosis (S/P Right CEA 7) 06/24/2017 Hypertension 06/24/2017 Obesities, morbid 06/24/2017 GERD (gastroesophageal reflux disease) 7 Chronic kidney disease 06/24/2017 Bipolar disorder 06/24/2017 Hyperlipidemia 06/24/2017 Disease of thyroid gland 06/24/2017 DANY (Non-compliant with CPAP) 06/24/2017 Bilateral carotid artery stenosis 05/14/2017 Abnormal stress test 03/27/2017 Overview (03/27/2017): Added automatically from request for surgery [id number] Family History Medical History Relation Name Comments Heart attack Brother Heart attack Father Heart attack Mother Heart attack Sister Relation Name Status Comments Brother Father Mother Sister Social History Tobacco Use Types Packs/Day Years Used Date Smoking Tobacco: Never Smokeless Tobacco: Never Alcohol Use Standard Drinks/Week Comments Yes 0 (1 standard drink = 0.6 oz pur e alcohol) 6-8 BEERS ON THE WEEKENDS Abuse Screen Answer Date Recorded Unsafe at Home or Work/School Not on file Feels Threatened by Someone? Not on file 05/2023 Does Anyone Keep You from Co ntacting Others or Doint Things Outside the Home? Not on file 04/16/2023 Physical Sign of Abuse Present Not on file 1 Housing Stability Answer Date Recorded Current Living Arrangements Not on file 04/06 Potentially Unsafe Housing Conditions Not on hallie e 04/16/2023 Family and Community Support Answer Seth e Recorded Help with Day-to-Day Activities Not on file 04/16/2023 Lonely or Isolated Not on file 04/16/2023 Employment Answer Date Recorded Do you want help finding or keeping work or a basia b? Not on file 04/16/2023 Disabilities Answer Date Recorded Concentrating, Remembering, or Making Decisions Difficulty Not on file 04/16/2023 Doing Errands Independently Difficulty Not on fi le 04/16/2023 Education Answer Date Recorded Help with school or training? 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 file Not on file Not on hallie e Last Filed Vital Signs Vital Sign Reading Time Taken Comments Blood Pressure 180/90 07/16/2017 11:23 AM EST Pulse 71 07/16/2017 11:23 AM EST Temperature 36.6 C (97.8 F) 06/25/2017 7:00 AM EST Respiratory Rate 16 06/25/2017 7:00 AM EST Oxygen Saturation 98% 07/16/2017 11:23 AM EST Inhaled Oxygen Concentration - - Weight 138 kg (304 lb) 07/16/2017 11:23 AM EST Height 182.9 cm (6') 07/16/2017 11:23 AM EST Body Mass Index 41.23 07/16/2017 11:23 AM EST Plan of Treatment Health Maintenance Due Date Last Done Comments COLOGUARD 2002 COLON CANCER SCREENING 5 ROMAA Ayaan SIGMOIDOSCOPY 2002 COLONOSCOPY 2002 COLORECTAL CANCER SCREENING 2002 CT COLONOGRAPHY 2002 FECAL OCCULT BLOOD TEST 2002 FIT Testing (1 year) 2002 Pneumococcal Vaccine 50+ (1 of 1 - PCV) 2007 ZOSTER VACCINE (1 of 2) 2007 ANNUAL PHYSICAL 03/27/2017 HEPATITIS C SCREENING 03/27/2017 TDAP/TD VACCINES (4 - Tdap) 10/13/2020 04/0 03/2011, 10/13/2010, 10/07/2010, Additional history exists COVID-19 Vaccine (1 - 2023-2 5 season) 2024 LIPID PANEL 05/16/2024 05/16/2023, 03/28/2017 INFLUENZA VACCINE 04/06/2025 HEMOGLOBIN A1C Discontinued 06/13/2024, 05/0 07/2023, 08/09/2023, Additional history exists AAA SCREEN ONCE Completed 06/16/2024, 050 08/2023, 05/05/2023 Medical Devices Implanted Type Area Financial Administrative Assistant Device Identifier Shelf Expiration Date Model / Serial / Lot Linnea Obrien 1x6cm - [id number] Implanted:Qty: 1 on 06/24/2017 by Priyank Law MD at [facility] Implant Right: Carotid SYNOVIS 10/28/2021 [id number] / / [id number] Procedures Procedure Name Priority Date/Time Associated Diagnosis Comments HEMOGLOBIN A1C Routine 2017 2:07 PM EST Stenosis of right carotid artery LIPID PANEL STAT 03/28/2017 7:38 AM EDT from Last 3 Months or Most Recently Relevant to Health Maintenance Results * (ABNORMAL) Hemoglobin A1c (2017 2:07 PM EST) Pathologist [facility] Hemoglobin A1C 7.50(H) 4.80 - 5.60 % 2017 2:47 PM EST [facility] Blood Venipuncture / Unknown 2017 2:07 PM EST 2017 2:21 PM EST Narrative [facility] - 2017 2:47 PM EST The [place] Diabetes Association recommends maintenance of Hemoglobin A1C at 7.0% or lower. Goals for Hemoglobin A1C reduction may need to be modified if hypoglycemia is a problem. us Elzbieta MA LAB BLOOD ORDERABLES Final R esult [facility]
[address] [place] [address], * (ABNORMAL) Lipid Panel (03/28/2017 7:38 AM EDT) Total Cholesterol 141 0 - 200 mg/dL 03/28/2017 8:20 AM EDT [facility] Triglycerides 170(H) 0 - 150 mg/dL 03/28/2017 8:20 AM EDT [facility] HDL Cholesterol 27(L) 40 - 60 mg/dL 03/28/2017 8:20 AM EDT [facility] LDL Cholesterol 104 0 - 130 mg/dL 03/28/2017 8:20 AM EDT [facility] Blood Line / Unknown 03/28/2017 7: 38 AM EDT 03/28/2017 7:57 AM EDT [facility] - 03/28/2017 8:20 AM EDT Cholesterol Reference Ranges: Desirable < 200 mg/dL Borderline 200-239 mg/dL High Risk > 239 mg/dL Triglyceride Reference Ranges: Normal < 150 mg/dL Borderline 150-199 mg/dL High 200-499 mg/dL Very High > 499 mg/dL HDL Reference Ranges: Low < 40 mg/dL High > 59 mg/dL LDL Reference Ranges: Optimal < 100 mg/dL Near Optimal 100-129 mg/dL Borderline 130-159 mg/dL High 160-189 mg/dL Very High > 189 mg/dL Sowmya Rebolledo APRN LAB BLOOD ORDERABLES Final Result [facility]
[address] [place] [address], from Last 3 Months or Most Recently Relevant to Health Maintenance Insurance [employer] MEDIC[employer]AGE Advance Directives * Full Code (Latest Code Status on File) Date Activated Date Inactivated Comments 06/24/2017 12:16 PM 06/25/2017 2:32 PM Care Teams Coating Mixer Supervisor Relationship Specialty Start Date End Date Kadie Chen MD PCP - General Family Medicine 03/28/17
--- OUTSIDE RECORDS SUMMARY | 2025-02-01 16:04 | XMS_ITS | Encounter Summary ---
Author Organization [employer] ([place], [place], [place], [place]) Address [address] [place] [address] Care Team Providers Care Start Up Specialist Name Role Phone Unavailable Primary Care Provider Unavailabl e Encounter Details Date Type Department Care Team (Late st Contact Info) Description 05/18/2019 Transcribed Document [facility] [place] [facility] [place] [address] ProviderEmilia MD [address] [place] [id number] Social History Tobacco Use Types Packs/Day Years Used Date Smoking Tobacco: Never Assessed Sex and Gender Information Value Date Recorded Sex Assigned at Not on file Legal Sex Male 5:19 PM CDT Gender Identity Not on file Sexual Orientation Not on file documented as of this encounter Miscellaneous Notes * Cerner Conversion Note - Historical ProviderMD - 05/18/2019 3:33 PM SPECIAL AGENT Patient: JOHNATHAN PARHAM Age: 63 years Sex: [...] GRAFT in 2004 at 50 Years. CHOLECYSTECTOMY ([id number]). CATARACT REMOVAL INSERTION OF LENS ([id number]). Right knee replacement. Hernia Repair. Carotid Endardectomy.. [...] reflux disease) History of obstructive sleep apnea [place] (hard of hearing) Hypertension . Physical Examination [...] Normal ventricular rate is 64 bpm. pr [id number] ms. Normal QTC. Sinus rhythm with no [...] % 26.0 % Lymph # 1.41 x10(3)/uL [place] % 8.3 % [place] # 0.45 K/uL Eos % 2.8 % Eos # 0.15 x10(3)/uL Baso % 0.6 % Baso # 0.03 x10(3)/uL Slide Review No IG# 0.02 x10(3)/uL IG% 0.40 % PT 10.0 Second(s) INR 1.0 PTT 26.8 Second(s) . Radiology results: Radiology Results (Last 48 hours) [id number] -- 05/18/2019 13:36 CR Chest 1 Vw [...] He does need to follow-up with his custodial operations manager in 24 hours. He is have [...]
--- OUTSIDE RECORDS SUMMARY | 2025-02-01 16:04 | XMS_ITS | Clinical Summary ---
Author Organization [employer] [facility] ([place], [place], [place], [place]) Address [address] [place] [address] Care Team Providers Care Breaker Oiler Name Role Phone Unavailable Primary Care Provider [...]
--- OUTSIDE RECORDS SUMMARY | 2025-02-01 16:04 | XMS_ITS | Encounter Summary ---
Author Organization [employer] ([place], [place], [place], [place]) Address [address] [place] [address] Care Team Providers Care Parking Supervisor Name Role Phone Unavailable Primary Care Provider Unavailabl e Encounter Details Date Type Department Care Team (Late st Contact Info) Description 05/18/2019 Transcribed Document [facility] [place] [address] ProviderEmilia MD [address] [place], [place] [id number] Social History Tobacco Use Types Packs/Day Years Used Date Smoking Tobacco: Never Assessed Sex and Gender Information Value Date Recorded Sex Assigned at Not on file Legal Sex Male 5:19 PM CDT Gender Identity Not on file Sexual Orientation Not on file documented as of this encounter Miscellaneous Notes * Cerner Conversion Note - Emilia ProviderMD - 05/18/2019 1:36 PM ARCHITECTURAL PROJECT MANAGER ED Assessment Entered On: 05/18/2019 14:43 EST [...] Communication Barrier : None Primary Language : Central African Any Spiritual/Cultural Needs or Requests : No [...] Rhythm : Regular Nail Bed Color : [place] Chest Pain : Yes ERICA MONROY RN [...] EST Electronically signed by Rehan, [place] Conversion Metal Milling Machine Operator Cerner at 10/22/2022 11:12 PM CDT documented in this encounter Plan of Treatment Not on file documented as of this encounter Visit Diagnoses Not on filedocumented in this encounter
--- OUTSIDE RECORDS SUMMARY | 2025-02-01 16:04 | XMS_ITS | Encounter Summary ---
Author Organization [employer] ([place], [place], [place], [place]) Address [address] [place] [address] Care Team Providers Care Seismic Interpreter Name Role Phone Unavailable Primary Care Provider Unavailabl e Encounter Details Date Type Department Care Team (Late st Contact Info) Description 05/18/2019 Transcribed Document [facility] [place] [address] [place] [address] ProviderEmilia MD [address] [place], [place] [address] Social History Tobacco Use Types Packs/Day Years Used Date Smoking Tobacco: Never Assessed Sex and Gender Information Value Date Recorded Sex Assigned at Not on file Legal Sex Male 5:19 PM CDT Gender Identity Not on file Sexual Orientation Not on file documented as of this encounter Miscellaneous Notes * Cerner Conversion Note - Historical ProviderMD - 05/18/2019 1:36 PM BOTTOM SCRUBBER [place] Suicide Severity Rating Scale (C-SSRS) Entered On: 05/18/2019 14:44 EST Performed On: 05/18/2019 14:42 EST by ERICA MONROY RN [place] Suicide Severity Rating Scale (C-SSRS) CSSRS Past [...]
--- OUTSIDE RECORDS SUMMARY | 2025-02-01 16:04 | XMS_ITS | Encounter Summary ---
Author Organization [employer] ([place], [place], [place], [place]) Address [address] [place] [address] Care Team Providers Care Mohel Name Role Phone Unavailable Primary Care Provider Unavailabl e Encounter Details Date Type Department Care Team (Late st Contact Info) Description 05/18/2019 Transcribed Document [facility] [place] Family Medicine [facility] [place] [address] ProviderEmilia MD [address] [place], [place] [address] Social History Tobacco Use Types Packs/Day Years Used Date Smoking Tobacco: Never Assessed Sex and Gender Information Value Date Recorded Sex Assigned at Not on file Legal Sex Male 5:19 PM CDT Gender Identity Not on file Sexual Orientation Not on file documented as of this encounter Miscellaneous Notes * Cerner Conversion Note - Historical ProviderMD - 05/18/2019 6:13 PM CONSULTING INTERN Electronically signed by Rehan, [facility] Conversion Aquaculture Farm Manager Cerner at 10/22/2022 11:11 PM CDT documented in this encounter Plan of Treatment Not on file documented as of this encounter Visit Diagnoses Not on filedocumented in this encounter
--- OUTSIDE RECORDS SUMMARY | 2025-02-01 16:04 | XMS_ITS | Encounter Summary ---
Author Organization [employer] ([place], [place]) Address [address] [place] [address] Care Team Providers Care Marble Mechanic Helper Name Role Phone Unavailable Primary Care Provider Unavailabl e Encounter Details Date Type Department Care Team (Late st Contact Info) Description 05/18/2019 Transcribed Document [facility] [place] Family [place] [address] ProviderEmilia MD [address] [place], [place] [id number] Social History Tobacco Use Types Packs/Day Years Used Date Smoking Tobacco: Never Assessed Sex and Gender Information Value Date Recorded Sex Assigned at Not on file Legal Sex Male 5:19 PM CDT Gender Identity Not on file Sexual Orientation Not on file documented as of this encounter Miscellaneous Notes * Cerner Conversion Note - Historical ProviderMD - 05/18/2019 4:07 PM PRINTS AND DRAWINGS CURATOR CR Chest 1 Vw Portable Ordered: 05/18/2019 Modified Reason for Exam: Chest Pain 05/18/2019 15:58 05/18/2019 16:07 (JORDAN GOMES) No further action required documented in this encounter Plan of Treatment Not on file documented as of this encounter Visit Diagnoses Not on filedocumented in this encounter
--- OUTSIDE RECORDS SUMMARY | 2025-02-01 16:04 | XMS_ITS | Clinical Summary ---
Author Organization [facility] Address [address] [place] [address] Care Team Providers Care Cone Picker Name Role Phone Pcp, No Primary Care Provider Unavailabl e Addison Rizzo DO Unavailable [phone] Allergies Active Allergy Reactions Criticality Noted [...] if needed for pain. Active HYDROcodone-aceta minophen ([place]rum[place]) 5-325 MG tablet Take 1 tablet (5 [...] (08/22/2021): Added automatically from request for surgery [id number] Calculus of gallbladder and bile duct 12/27/2013 [...] place to sleep or slept in a mcfp (including now)? No 04/26/2024 PHQ-9 Answer Date [...] time in the [facility], were you homeless or living in a mcfp (including now)? No 06/25/2024 CAGE ASSESSMENT Answer [...] drink first t alyx in the morning (EYE-TUBE BENDER) to steady your nerves or to get rid of a hangover? 0 06/25/2024 CAGE Questionnaire Score 0 024 Utilities Answer Date Recorded In the past 12 months has th e [employer], gas, oil, or water registracija vozila threatened to shut off services in your [...] Wellness (AWV) 1955 UKY-/Child/Adol SDOH Screenings 1955 [id number] Vaccine (#1) 1962 Diabetes: Dental Exam 1967 [...] this topic Medical Devices Implanted Type Area Strategy Analyst Device Identifier Shelf Expiration Date Model / Serial / Lot Embolic Trufill 1 Gm N Bca Liq - [id number] Implanted:Qty: 1 on 05/06/2023 by Abdoulaye James MD at [facility] [employer] [id number] 08/06/2024 [id number] / / [id number] Vip Vascular Closure Device 6 Fr - [id number] Implanted:Qty: 1 on 05/06/2023 by Abdoulaye James MD at [facility] [id number] 12/12/2023 [id number] / / [id number] Puraply Am 6x9 54 Sq Cm - [id number] Implanted:Qty: 1 on 03/16/2024 by Syed Jeffesron MD at [facility] [id number] 01/03/2026 PURAPLYFloop 6X9 / / [id number] Procedures Procedure Name Priority Date/Time Associated Diagnosis Comments HEMOGLOBIN A1C Routine 06/25/2024 3:24 AM EST HEPATITIS C ANTIBODY - ED W/REFLEX TO HCV QUANT PCR STAT 06/24/2024 11:48 AM EST from Last 3 Months or Most Recently Relevant to Health Maintenance Results * Hemoglobin A1c (06/25/2024 3:24 AM EST) Hemoglobin A1c 4.8 <5.7 % 06/25/2024 3:52 AM EST [facility] Blood Venous blood specimen / Unknown Venipuncture / Unknown 06/25/2024 3:24 AM EST 06/25/2024 3:34 AM EST Narrative [facility] - 06/25/2024 3:52 AM EST HA1C Interpretive Data: Diagnosis of Diabetes: Diabetic > or = 6.5% Pre-diabetic 5.7 to 6.4% Non-diabetic < or = 5.6% Glycemic Targets for Type I and Type II Diabetics: Non- Adults <7.0% Adults <6.0% Children and Adolescents <7.5% Source: [place] Diabetes Association. Standards of medical care in diabetes,2017. Diabetes Care.2017:40 (suppl 1):S1-S135. HbA1c assay performed by an ion-exchange chromatography method that is certified traceable to the DCCT. Haung Hubbard MD LAB BLOOD ORDERABLES Final Re sult [facility] [address] [place] [address] * Hepatitis C Antibody - ED (06/24/2024 11:48 AM EST) Hepatitis C Antibody Negative Negative 06/24/2024 1:02 PM EST [facility] Blood Venous blood specimen / Unknown Venipuncture / Unknown 06/24/2024 11:48 AM EST 06/24/2024 12:16 PM EST us Craig MA LAB BLOOD ORDERABLES Final Res ult [facility] [address] [place] [address] from Last 3 Months or Most Recently [...] 11/05/2023 06/29/2024 C. difficile 07/05/2024 07/05/2024 Insurance [facility] [place] [address] Advance Directives * Full Code (Latest Code [...] Patient has decision-making capacity? Yes Care Teams Cone Picker Relationship Specialty Start Date End Date Pcp, No [address] [place] [address] PCP - General Family Medicine 06/24/24 Addison Rizzo DO [address] [place] [id number] 06/24/24
--- OUTSIDE RECORDS SUMMARY | 2025-02-01 16:04 | XMS_ITS | Encounter Summary ---
Author Organization [employer] ([place], [place], [place], [place]) Address [address] [place] [address] Care Team Providers Care Car Sales Consultant Name Role Phone Unavailable Primary Care Provider Unavailabl e Encounter Details Date Type Department Care Team (Late st Contact Info) Description 05/18/2019 Transcribed Document [facility] [place] [facility] [place] [address] ProviderEmilia MD [address] [place], [place] [phone] Social History Tobacco Use Types Packs/Day Years Used Date Smoking Tobacco: Never Assessed Sex and Gender Information Value Date Recorded Sex Assigned at Not on file Legal Sex Male 5:19 PM CDT Gender Identity Not on file Sexual Orientation Not on file documented as of this encounter Miscellaneous Notes * Cerner Conversion Note - Emilia ProviderMD - 05/18/2019 1:36 PM RAIL TRACTOR OPERATOR ED Triage Entered On: 05/18/2019 [...] : 2 - Emergent Tracking Group : [facility] ED Shelby Jefferson RN - 05/18/2019 13:38 EST Mode of Arrival : Stretcher Transported to ED by : Ambulance/ALS EMS Service : [facility] To Room Via : Stretcher Accompanied By : Unaccompanied ADZING AND BORING MACHINE HELPER Medications and Interventions : Document ED Vital Signs : Document Height & Weight : Document ED Allergies : Document ED Reason for Visit : Document Tetanus Immunization : Unknown Hotel [employer] Motel Room Service Supervisor Needed : No Shelby Jefferson RN - [...] Problems(Active) CKD (chronic kidney disease) (SNOMED CT :0625371557 ) Name of Problem: CKD (chronic kidney disease) ; Recorder: Ana Villeda RN; Confirmation: Confirmed ; Classification: Patient Stated ; Code: [id number] ; Contributor System: Ranker ; Last Updated: 01/29/2019 22:37 EDT ; Life Cycle Date: 01/29/2019 ; Life Cycle Status: Active ; Vocabulary: SNOMED CT Diabetes mellitus (SNOMED CT :783122013 ) Name of Problem: Diabetes mellitus ; Recorder: Ana Villeda RN; Confirmation: Confirmed ; Classification: Patient Stated ; Code: [id number] ; Contributor System: [employer] Technology SolutionsChart ; Last Updated: 01/29/2019 22:37 EDT ; Life Cycle Date: 01/29/2019 ; Life Cycle Status: Active ; Vocabulary: SNOMED CT GERD (gastroesophageal reflux disease) (SNOMED CT :627018469 ) Name of Problem: GERD (gastroesophageal reflux disease) ; Recorder: Ana Villeda RN; Confirmation: Confirmed ; Classification: Patient Stated ; Code: [id number] ; Contributor System: Ranker ; Last Updated: 01/29/2019 22:37 EDT ; Life Cycle Date: 01/29/2019 ; Life Cycle Status: Active ; Vocabulary: SNOMED CT History of obstructive sleep apnea (IMO :42951830 ) Name of Problem: History of obstructive sleep apnea ; Recorder: SYSTEM, SYSTEM; Confirmation: Confirmed ; Classification: Medical ; Code: [id number] ; Last Updated: 01/29/2019 22:48 EDT ; Life Cycle Date: 01/29/2019 ; Life Cycle Status: Active ; Vocabulary: IMO NEWHALEN (hard of hearing) (SNOMED CT :51621543 ) Name of Problem: NEWHALEN (hard of hearing) ; Recorder: Ana Villeda RN; Confirmation: Confirmed ; Classification: Patient Stated ; Code: [id number] ; Contributor System: Ranker ; Last Updated: 01/29/2019 22:37 EDT ; Life Cycle Date: 01/29/2019 ; Life Cycle Status: Active ; Vocabulary: SNOMED CT Hypertension (SNOMED CT :2520730488 ) Name of Problem: Hypertension ; Recorder: Ana Villeda RN; Confirmation: Confirmed ; Classification: Patient Stated ; Code: [id number] ; Contributor System: Ranker ; Last Updated: 01/29/2019 22:37 EDT ; Life Cycle Date: 01/29/2019 ; Life Cycle Status: Active ; Vocabulary: SNOMED CT Diagnoses(Active) Chest pain Date: 05/18/2019 ; Diagnosis Type: Reason For Visit ; Confirmation: Complaint of ; Clinical Dx: Chest pain ; Classification: Medical ; Clinical Service: Emergency medicine ; Code: PNED ; Probability: 0 ; Diagnosis Code: [id number] ED Height and Weight Height Source : Estimated Height Entry Format : Stacy Height, Feet : 6 ft(Converted to: 183 cm, 72 Inch) Height, Inches : 2 Inch(Converted to: 0 ft 2 Inch, 5.08 cm) Clinical Height : 187.96 cm Weight Source, ED : Critical estimated dosing weight Weight Entry Format : Stacy Weight, Pounds : 320 lb Clinical Dosing Weight : 145.45 kg Body Surface Area (BSA) : 2.66 m2 Body Mass Index : 41.2 kg/m2 (>HHI) [place] Body Weight (IBW) : 81.16 kg Shelby Jefferson RN - 05/18/2019 13:38 EST ADZING AND BORING MACHINE HELPER Medications and Interventions Treatments Prior to Arrival : Other: 20 G right AC; fsbs 346 Shelby Jefferson RN - 05/18/2019 13:38 EST documented in this encounter Plan of Treatment Not on file documented as of this encounter Visit Diagnoses Not on filedocumented in this encounter
--- OUTSIDE RECORDS SUMMARY | 2025-02-01 16:04 | XMS_ITS | Clinical Summary ---
Author Organization [facility] Address [address] [place] [address], [address] [place] [address] Care Team Providers Care Gasoline Truck Operator Name Role Phone Estefania Bueno MD Primary [...] of Treatment Not on file Care Teams Gasoline Truck Operator Relationship Specialty Start Date End Date Estefania Bueno MD [address] [place] [address] PCP - General 01/15/12
--- OUTSIDE RECORDS SUMMARY | 2025-02-01 16:05 | XMS_ITS | Encounter Summary ---
Author Organization [employer] ([place], [place], [place], [place]) Address [address] [place] [address] Care Team Providers Care Refueler Name Role Phone Unavailable Primary Care Provider Unavailabl e Encounter Details Date Type Department Care Team (Late st Contact Info) Description 01/30/2019 Transcribed Document [facility] [place] Family Medicine [address] [place] [address] ProviderEmilia MD [address] [place], [place] [id number] Social History Tobacco Use Types Packs/Day Years [...]
--- OUTSIDE RECORDS SUMMARY | 2025-02-01 16:05 | XMS_ITS | Encounter Summary ---
Author Organization [employer] ([place], [place], [place], [place]) Address [address] [place] [address] Care Team Providers Care Daycare Manager Name Role Phone Unavailable Primary Care Provider Unavailabl e Encounter Details Date Type Department Care Team (Late st Contact Info) Description 01/31/[address] [facility] [place] Family Medicine Replaced by [facility] [place] [address] ProviderEmilia MD [address] [place], [place] [address] Social History Tobacco Use Types Packs/Day Years [...] and diabetes mellitus type 2 presented to [facility] with complaints of progressive chest pain with associated palpitations shortness of air and cough via [facility]. He underwent stress testing at their [...] function after cath - High risk for LKEBER given hx of CKD - Will check [...] reflux disease) History of obstructive sleep apnea [place] (hard of hearing) Hypertension Historical No qualifying [...] Lymph # 1.76 x10(3)/uL 01/31/2019 04:16 EDT [place] % 7.4 % 01/31/2019 04:16 EDT [place] # 0.45 K/uL 01/31/2019 04:16 EDT [place] [...]
--- OUTSIDE RECORDS SUMMARY | 2025-02-01 16:05 | XMS_ITS | Encounter Summary ---
Author Organization [employer] ([place], [place], [place], [place]) Address [address] [place] [address] Care Team Providers Care Tattoo Technician Name Role Phone Unavailable Primary Care Provider Unavailabl e Encounter Details Date Type Department Care Team (Late st Contact Info) Description 02/02/2019 Transcribed Document [facility] [place] [facility] [place] [address] ProviderEmilia MD [address] [place], [place] [id number] Social History Tobacco Use Types Packs/Day Years [...] cause a heart attack (myocardial infarction or UT). This condition may also be called coronary [...] these instructions at home: Medicines ??? Take mqbt-bve-cppmveg and prescription medicines only as told by [...] 01/18/2015 Document Revised: 06/13/2017 Document Reviewed: 06/13/2017 [employer] Interactive Patient Education ? 2019 [employer] Endocrinology Carbohydrate Counting for Diabetes Mellitus, [...] different for every person. A diet and smart energy specialist (registered dietitian) can help you make [...] of carbohydrates: ? hamburger bun or ? Czech muffin. ? oz (15 mL) syrup. ? [...] foods that contain carbohydrates: ??? Rice. ??? [place]. ??? Milk. ??? Strawberries. 2. Calculate how [...] manage your diabetes. ??? A diet and smart energy specialist (registered dietitian) can help you make a meal plan and calculate how many carbohydrates you should have at each meal and snack. This information is not intended to replace advice given to you by your health care provider. Make sure you discuss any questions you have with your health care provider. Document Released: 2006 Document Revised: 12/31/2017 Document Reviewed: 12/04/2016 [employer] Interactive Patient Education ? 2019 [employer] Diabetes Mellitus and Skin Care Diabetes [...] (acanthosis nigricans). This typically affects people of -Samoan and Samoan- descent. ??? Red, raised, scar-like tissue that may itch, feel painful, or develop into a wound (necrobiosis lipoidica). ??? Blisters on feet, toes, hands, or fingers. ??? Thickened, wax-like areas of skin that usually occur on the hands, forehead, or toes (digital sclerosis). ??? Brown or red ring-shaped or tuft-igdu-maoent patches of skin on the ears or [...] 12/03/2016 Document Revised: 01/01/2018 Document Reviewed: 12/03/2016 [employer] Interactive Patient Education ? 2019 [employer] Diabetes Mellitus and Nutrition, Adult When [...] that you work with a diet and smart energy specialist (dietitian) to make a meal plan [...] provider. ??? Work with a counselor or director of patient safety to identify strategies to manage stress and any emotional and social challenges. Questions to ask a health care provider ??? Do I need to meet with a director of patient safety? Do I need to meet with a dietitian? What number can I call if I have questions? When are the best times to check my blood glucose? Where to find more information: ??? [place] Diabetes Association: diabetes.org ??? Academy of Nutrition and Dietetics: www.eatright.org ??? National [place] of Diabetes and Digestive and Kidney Diseases (NIH): www.niddk.nih.gov Summary ??? A healthy meal plan will help you control your blood glucose and maintain a healthy lifestyle. ??? Working with a diet and smart energy specialist (dietitian) can help you make a [...] 03/20/2006 Document Revised: 01/21/2018 Document Reviewed: 07/28/2017 [employer] Interactive Patient Education ? 2019 [employer]. Nephrology Diabetic Nephropathy Diabetic nephropathy is kidney [...] parent to child (inherited). ??? Are of -Samoan, , , , or descent. What are [...] by your health care provider. ??? Take xqhd-mww-knirpcl and prescription medicines only as told by [...] 07/12/2008 Document Revised: 02/10/2018 Document Reviewed: 05/21/2017 [employer] Interactive Patient Education ? 2019 [employer]. Chronic Kidney Disease, Adult Chronic kidney disease [...] these instructions at home: Medicines ??? Take cryr-suu-bzpassw and prescription medicines only as told by [...] 09/17/2010 Document Revised: 07/28/2017 Document Reviewed: 07/28/2017 [employer] Interactive Patient Education ? 2019 [employer] Hypertension Hypertension is another name for [...] doctor. This is important. Medicines ??? Take javz-joh-cqlhkww and prescription medicines only as told by [...] 12/09/2008 Document Revised: 05/21/2017 Document Reviewed: 05/21/2017 [employer] Interactive Patient Education ? 2019 [employer] documented in this encounter Plan of Treatment Not on file documented as of this encounter Visit Diagnoses Not on filedocumented in this encounter
--- OUTSIDE RECORDS SUMMARY | 2025-02-01 16:05 | XMS_ITS | Encounter Summary ---
Author Organization [employer] ([place], [place], [place], [place]) Address [address] [place] [address] Care Team Providers Care Rail Car Mechanic Name Role Phone Unavailable Primary Care Provider Unavailabl e Encounter Details Date Type Department Care Team (Late st Contact Info) Description 02/02/2019 Transcribed Document [facility] [place] [facility] [place] [address] ProviderEmliia MD [address] [place], [place] [address] Social History Tobacco Use Types Packs/Day Years [...] On: 02/02/2019 12:04 EDT by ANNETTE ENCARNACION RN-Cognos Bi Administrator Final Discharge Planning Discharge Arrangements : Patient [...] : Yes Discharge To Care Management : Home/Residential/[facility] or Self Care -01 ANNETTE ENCARNACION, RN-[employer] Bi Administrator - 02/02/2019 12:04 EDT Final Narrative Note Final Narrative Note : pt discharge home with . appointment with processing analyst made on 02/04 at 0815, with ANIL Lopez. [address]. pt for dc with 70/30 insulin and [place] to f/u with pt's home rgiment of humalin and assistance with supplies and affordability. ANNETTE ENCARNACINO, TONIO-Cognos Bi Administrator - 02/02/2019 12:04 EDT documented in this encounter Plan of Treatment Not on file documented as of this encounter Visit Diagnoses Not on filedocumented in this encounter
--- OUTSIDE RECORDS SUMMARY | 2025-02-01 16:05 | XMS_ITS | Encounter Summary ---
Author Organization [employer] ([place], [place], [place], [place]) Address [address] [place] [address] Care Team Providers Care Manager Sales Name Role Phone Unavailable Primary Care Provider Unavailabl e Encounter Details Date Type Department Care Team (Late st Contact Info) Description 02/01/2019 Transcribed Document [facility] [place] [address] [place] [address] ProviderEmilia MD [address] [place], [place] [id number] Social History Tobacco Use Types Packs/Day Years [...] Spiritual Care Spiritual Care Referred by : Cosmetic Sales Advisor initiated Reason for Visit : Initial Ministry Provided to : Patient, Family/Significant other Intervention/Comment/Summary Points : 3 day visit with Johnathan and his . Oriental Orthodox Preference : Roman Catholic DANYEL NICHOLSON Chaplain - 02/01/2019 19:31 EDT Electronically signed by Kiara Van Conversion Riveting Machine Operator Automatic Cerner at 10/22/2022 11:11 PM CDT documented in this encounter Plan of Treatment Not on file documented as of this encounter Visit Diagnoses Not on filedocumented in this encounter
--- OUTSIDE RECORDS SUMMARY | 2025-02-01 16:05 | XMS_ITS | Encounter Summary ---
Author Organization [employer] ([place], [place], [place], [place]) Address [address] [place] [address] Care Team Providers Care Crutcher Helper Name Role Phone Unavailable Primary Care Provider Unavailabl e Encounter Details Date Type Department Care Team (Late st Contact Info) Description 01/29/2019 Transcribed Document [facility] [place] Family Medicine [facility] [place] [address] ProviderEmilia MD [address] [place], [place] [id number] Social History Tobacco Use Types Packs/Day Years [...] From : Emergency department Legal Guardian : orthopedic nurse Support Person/Patient Cashier And Waiter/Waitress : No Want Family/Rep/Phys Notified of Admit : No Emergency Contact #1 : Samara Carey Emergency Contact #1 Emergency Contact #1 Relationship : Girlfriend Emergency Contact #2 : N/a Emergency Contact #2 Phone Number : N/a Emergency Contact #2 Relationship : N/a Information Obtained From : Patient Primary Language : Nepali Preferred Communication Mode : Verbal Communication Barrier [...] Scale Risk Level : 0-24 Low Risk [place] Fall Interventions : Adequate lighting, Bed in [...] Source : Stated Height Entry Format : [place] Height, Feet : 6 ft(Converted to: 183 cm, 72 Inch) Height, Inches : 0 Inch(Converted to: 0 ft 0 Inch, 0.00 cm) Clinical Height : 182.88 cm Weight Source : Bed scale Weight Entry Format : [place] Clinical Dosing Weight : 135.91 kg Weight, Pounds : 299 lb Body Surface Area (BSA) : 2.53 m2 Body Mass Index : 40.6 kg/m2 (>HHI) [place] Body Weight : 77 kg Ana Villeda [...] Any Spiritual/Cultural Needs or Requests : No Religion Preference : Nondenominational Ana Villeda Rn - 01/29/2019 22:41 EDT [...]
--- OUTSIDE RECORDS SUMMARY | 2025-02-01 16:05 | XMS_ITS | Encounter Summary ---
Author Organization [employer] ([place], [place], [place], [place]) Address [address] [place] [address] Care Team Providers Care Book Store Associate Name Role Phone Unavailable Primary Care Provider Unavailabl e Encounter Details Date Type Department Care Team (Late st Contact Info) Description 05/18/2019 Transcribed Document [facility] [place] Family Medicine [facility] [place] [address] ProviderEmilia MD [address] [place], [place] [id number] Social History Tobacco Use Types Packs/Day Years Used Date Smoking Tobacco: Never Assessed Sex and Gender Information Value Date Recorded Sex Assigned at Not on file Legal Sex Male 5:19 PM CDT Gender Identity Not on file Sexual Orientation Not on file documented as of this encounter Miscellaneous Notes * Cerner Conversion Note - Historical ProviderMD - 05/18/2019 6:17 PM TERRITORY SERVICE REPRESENTATIVE ED Discharge Entered On: 05/18/2019 18:17 EST [...]
--- OUTSIDE RECORDS SUMMARY | 2025-02-01 16:05 | XMS_ITS | Encounter Summary ---
Author Organization [employer] ([place], [place], [place], [place]) Address [address] [place] [address] Care Team Providers Care Graffiti Cleaner Name Role Phone Unavailable Primary Care Provider Unavailabl e Encounter Details Date Type Department Care Team (Late st Contact Info) Description 02/04/2019 Transcribed Document [facility] [place] Family Medicine [facility] [place] [address] ProviderEmilia MD [address] [place], [place] [phone] Social History Tobacco Use Types Packs/Day Years [...]
--- OUTSIDE RECORDS SUMMARY | 2025-02-01 16:05 | XMS_ITS | Encounter Summary ---
Author Organization [facility] Address [address] [place] [address] Care Team Providers Care Case Resource Manager Name Role Phone Bridgette Szymanski DO Primary Care Provider Elaina Carvalho Primary Care Provider Addison Rizzo DO Primary Care Provider Pcp, No Primary Care Provider Unavailabl e Addison Rizzo DO Unavailable [phone] Brooklyn Redmond LPN Unavailable Unavailable Encounter Details Date Type Department Care Team (Late st Contact Info) Description 05/06/2023 Lab Requisition [facility] [address] [place] [address] Estefania Keller MD [address] [place] [address] Unspecified general medical examination Social [...] place to sleep or slept in a long term (including now)? No 05/08/2023 Utilities Answer Date Recorded In the past 12 months has th e [employer], gas, oil, or water [employer] threatened to shut off services in your [...] Name Priority Date/Time Associated Diagnosis Comments SOURCE, [facility] HCV QUANT PCR Routine 05/06/2023 11:10 AM EDT Unspecified general medical examination HC 418 HIV-1 AG W/COMB 1&2 AB Routine 05/06/2023 11:10 AM EDT Unspecified general medical examination SOURCE, [facility] HEPATITIS B S AG Routine 05/06/2023 11:10 AM EDT Unspecified general medical examination documented in this encounter Results * Source, [facility] HCV Quant PCR (05/06/2023 11:10 AM EDT) Hepatitis C Virus (HCV) Quantitative Interpretation Not Detected Not Detected . 05/08/2023 5:06 AM EDT [facility] Hepatitis C Virus (HCV) Quantitative Viral Load Log Result <1.08 <1.08 log10 IU/mL 05/08/2023 5:06 AM EDT [facility] Hepatitis C Virus (HCV) Quantitative IU/mL Result <12 <12 IU/mL 05/08/2023 5:06 AM EDT [facility] Blood Venous blood specimen / Unknown [...] ORDERABLES Final Re sult Performing Organization Address [facility] de Phone Number [facility] [address] [place] [address] * Source, [facility] Hepatitis B S AG (05/06/2023 11:10 AM EDT) Pathologist [facility] Hepatitis B Surf Antigen Negative Negative 05/06/2023 12:44 PM EDT [facility] Blood Venous blood specimen / Unknown 05/06/2023 11:10 AM EDT 05/06/2023 11:38 AM EDT Estefania Keller MD LAB BLOOD ORDERABLES Final Re sult Performing Organization Address [facility] Phone Number [facility] [address] [place] [address] * Source, [facility] HIV AB/AG w/Reflex to HIV1/2 Antibody Differentiation (05/06/2023 11:10 AM EDT) [facility] HIV 1 & 2 Antibody/Anti gen Screen Non Reactive Non Reactive 05/06/2023 12:44 PM EDT [facility] Blood Venous blood specimen / Unknown 05/06/2023 11:10 AM EDT 05/06/2023 11:38 AM EDT Estefania Keller MD LAB BLOOD ORDERABLES Final Re sult Performing Organization Address [facility] de Phone Number [facility] [address] [place] [address] documented in this encounter Visit Diagnoses Diagnosis [...] documented as of this encounter Care Teams Case Resource Manager Relationship Specialty Start Date End Date Bridgette Szymanski DO [address] [place] [address] PCP - General 11/17/20 05/07/23 Elaina Carvalho PA [address] [place] [address] PCP - General 05/08/23 04/25/24 Addison Rizzo DO [address] [place] [address] PCP - General 04/26/24 06/23/24 Pcp, [place] [address] PCP - General Family Medicine 06/24/24 Addison Rizzo DO [address] [place] [id number] 06/24/24 Brooklyn Redmond LPN [employer]UE-[employer]ED [place] [address] TCM Nurse 06/23/24 07/23/24 documented as of this encounter
--- OUTSIDE RECORDS SUMMARY | 2025-02-01 16:05 | XMS_ITS | Encounter Summary ---
Author Organization [employer] ([place], [place], [place], [place]) Address [address] [place] [address] Care Team Providers Care Museum Exhibit Technician Name Role Phone Unavailable Primary Care Provider Unavailabl e Encounter Details Date Type Department Care Team (Late st Contact Info) Description 01/30/2019 Transcribed Document [facility] [place] [facility] [place] [address] ProviderEmilia MD [address] [place], [place] [phone] Social History Tobacco Use Types Packs/Day Years [...] Physician Requested for Consult : EDILBERTO MIRANDA MD-[facility] Provider Service Notified Name : Nephrology Physician Covering for Consult : CHRISTIANO FRANCIS MD Date and Time Call Returned : 01/30/2019 14:22 EDT Physician Returning Call : CHRISTIANO FRANCIS MD Ayubu, Sara, SWAN - 01/30/2019 14:22 EDT Electronically signed by Rehan [facility] Conversion Articulation Officer Cerner at 10/22/2022 11:12 PM CDT documented in this encounter Plan of Treatment Not on file documented as of this encounter Visit Diagnoses Not on filedocumented in this encounter
--- OUTSIDE RECORDS SUMMARY | 2025-02-01 16:05 | XMS_ITS | Encounter Summary ---
Author Organization [employer] ([place], [place], [place], [place]) Address [address] [place] [address] Care Team Providers Care Grazing Aide Name Role Phone Unavailable Primary Care Provider Unavailabl e Encounter Details Date Type Department Care Team (Late st Contact Info) Description 02/02/2019 Transcribed Document [facility] [place] [facility] [address] ProviderEmilia MD [address] [place] [address] Social History Tobacco Use Types Packs/Day Years Used Date Smoking Tobacco: Never Assessed Sex and Gender Information Value Date Recorded Sex Assigned at Not on file Legal Sex Male 5:19 PM CDT Gender Identity Not on file Sexual Orientation Not on file documented as of this encounter Miscellaneous Notes * Cerner Conversion Note - Emilia ProviderMD - 02/02/2019 12:42 PM CDT [facility] [place] [address] JOANNA COURTNEY :1955 Visit Time:01/29/2019 Your Visit Summary Your Care Team Admitting Physician - FIONA PECK MD-INT Attending Physician - FIONA PECK MD-YON Primary Care Physician - JUDITH BOSTON MD-[facility] Referring Physician - FIONA PECK MD-INT Your Diagnosis Other specified abnormal findings of blood chemistry, Other specified abnormal findings of blood chemistry Weakness Discharge Vitals Temperature 36.4 ??C Heart Rate (Monitored) 97 Respiratory Rate 16 Blood Pressure 167/83 What to do next Instructions From Your Care Team [facility] Address: [address] [place] [address] [place] [address] Please STOP taking Lisinopril Follow-Up Appointments Follow Up with Personal [employer] Underwriter When 02/04/2019 08:15 AM EDT Comments Appointment has been made with Chelsea MA. Please bring ID, insurance card and list of current medications. Where: [address] , [address] [place], [place] [phone] Follow Up with [facility] cardiac rehab When In 6 weeks Comments [...] parent to child (inherited). ??? Are of -Ukrainian, , , , or descent. What are [...] by your health care provider. ??? Take xiql-usp-cketjvu and prescription medicines only as told by [...] 07/12/2008 Document Revised: 02/10/2018 Document Reviewed: 05/21/2017 [employer] Interactive Patient Education ?? 2019 [employer]. Chronic Kidney Disease, Adult Chronic kidney disease [...] these instructions at home: Medicines ??? Take pgon-din-frnpwnb and prescription medicines only as told by [...] 09/17/2010 Document Revised: 07/28/2017 Document Reviewed: 07/28/2017 [employer] Interactive Patient Education ?? 2019 [employer] Carbohydrate Counting for Diabetes Mellitus, Adult [...] for every person. A diet and nutrition aide (registered dietitian) can help you make a [...] of carbohydrates: ? hamburger bun or ?? Romansh muffin. ? oz (15 mL) syrup. ? [...] foods that contain carbohydrates: ??? Rice. ??? [place]. ??? Milk. ??? Strawberries. 2. Calculate how [...] your diabetes. ??? A diet and nutrition aide (registered dietitian) can help you make a meal plan and calculate how many carbohydrates you should have at each meal and snack. This information is not intended to replace advice given to you by your health care provider. Make sure you discuss any questions you have with your health care provider. Document Released: 2006 Document Revised: 12/31/2017 Document Reviewed: 12/04/2016 [employer] Interactive Patient Education ?? 2019 [employer] Diabetes Mellitus and Skin Care Diabetes [...] (acanthosis nigricans). This typically affects people of -Ukrainian and Ukrainian-Citizen Of [place] descent. ??? Red, raised, scar-like tissue that may itch, feel painful, or develop into a wound (necrobiosis lipoidica). ??? Blisters on feet, toes, hands, or fingers. ??? Thickened, wax-like areas of skin that usually occur on the hands, forehead, or toes (digital sclerosis). ??? Brown or red ring-shaped or pzij-lxop-wooaxp patches of skin on the ears or [...] 12/03/2016 Document Revised: 01/01/2018 Document Reviewed: 12/03/2016 [employer] Interactive Patient Education ?? 2019 [employer] Diabetes Mellitus and Nutrition, Adult When [...] you work with a diet and nutrition aide (dietitian) to make a meal plan that [...] provider. ??? Work with a counselor or hospital educator to identify strategies to manage stress and any emotional and social challenges. Questions to ask a health care provider ??? Do I need to meet with a hospital educator? Do I need to meet with a dietitian? What number can I call if I have questions? When are the best times to check my blood glucose? Where to find more information: ??? [place] Diabetes Association: diabetes.org ??? Academy of Nutrition and Dietetics: www.eatright.org ??? National [place] of Diabetes and Digestive and Kidney Diseases (NIH): www.niddk.nih.gov Summary ??? A healthy meal plan will help you control your blood glucose and maintain a healthy lifestyle. ??? Working with a diet and nutrition aide (dietitian) can help you make a meal [...] 03/20/2006 Document Revised: 01/21/2018 Document Reviewed: 07/28/2017 [employer] Interactive Patient Education ?? 2019 [employer]. Hypertension Hypertension is another name for high [...] doctor. This is important. Medicines ??? Take dlhb-cpj-qeljvwi and prescription medicines only as told by [...] 12/09/2008 Document Revised: 05/21/2017 Document Reviewed: 05/21/2017 [employer] Interactive Patient Education ?? 2019 [employer] Coronary Artery Disease, Male Coronary artery disease (CAD) is a condition in which the arteries that lead to the heart (coronary arteries) become narrow or blocked. The narrowing or blockage can lead to decreased blood flow to the heart. Prolonged reduced blood flow can cause a heart attack (myocardial infarction or CA). This condition may also be called coronary [...] these instructions at home: Medicines ??? Take yinb-xsw-ldkzsta and prescription medicines only as told by [...] 01/18/2015 Document Revised: 06/13/2017 Document Reviewed: 06/13/2017 [employer] Interactive Patient Education ?? 2019 [employer]. insulin isophane and insulin regular (IN horton [...] may report side effects to FDA at 1-628-IWC-9978. What other drugs will affect insulin isophane and insulin regular? This insulin may not work as well when you use other medicines at the same time. This includes prescription and ceuj-akc-vcddtnu medicines, vitamins, and herbal products. Some drugs [...] to ensure that the information provided by [employer]. ('[employer]') is accurate, up-to-date, and complete, but no guarantee is made to that effect. Drug information contained herein may be time sensitive. bettercodes.org information has been compiled for use by healthcare practitioners and consumers in the [place] and therefore bettercodes.org does not warrant that uses outside of the [place] are appropriate, unless specifically indicated otherwise. bettercodes.org's drug information does not endorse drugs, diagnose patients or recommend therapy. [employer] drug information is an informational resource designed [...] effective or appropriate for any given patient. [facility] does not assume any responsibility for any aspect of healthcare administered with the aid of information [facility] provides. The information contained herein is not intended to cover all possible uses, directions, precautions, warnings, drug interactions, allergic reactions, or adverse effects. If you have questions about the drugs you are taking, check with your doctor, nurse or pharmacist. Copyright 1892-6309 [employer]. Version: 8.01. Revision Date: 03/11/2018.hydralazine (dmitry payton) [...] may report side effects to FDA at 2-145-SKH-2070. What other drugs will affect hydralazine? Tell your doctor about all your current medicines and any you start or stop using, especially: ? diazoxide (an injectable blood pressure medication); or ?? an MAO inhibitor--isocarboxazid, linezolid, methylene blue injection, phenelzine, rasagiline, selegiline, tranylcypromine, and others. This list is not complete. Other drugs may interact with hydralazine, including prescription and hstc-gsr-ulnlsrj medicines, vitamins, and herbal products. Not all [...]
--- OUTSIDE RECORDS SUMMARY | 2025-02-01 16:05 | XMS_ITS | Encounter Summary ---
Author Organization [facility] ([place], [place], [place], [place]) Address [address] [place] [address] Care Team Providers Care Technical Support Associate Name Role Phone Unavailable Primary Care Provider Annie raya Encounter Details Date Type Department Care Team (Late st Contact Info) Description 01/29/2019 Transcribed Document [facility] [place] [facility] [place] [address] ProviderEmilia MD [address] [place], [place] [id number] Social History Tobacco Use Types Packs/Day Years [...] On: 02/01/2019 10:16 EDT by Lesvia Warner Car Trimmer Nutrition Assessment Nutrition Assessment Reason : Automatic referral Lesvia Warner Car Trimmer - 02/01/2019 10:10 EDT Nutrition Recommendations Dietitian [...] Level : No nutritional risk Lesvia Warner, Car Trimmer - 02/01/2019 10:16 EDT Electronically signed by [facility] Conversion Funeral Professional Cerner at 10/22/2022 11:01 PM CDT documented in this encounter Plan of Treatment Not on file documented as of this encounter Visit Diagnoses Not on filedocumented in this encounter
--- OUTSIDE RECORDS SUMMARY | 2025-02-01 16:05 | XMS_ITS | Encounter Summary ---
Author Organization [employer] ([place], [place], [place], [place]) Address [address] [place] [address] Care Team Providers Care Help Desk Engineer Name Role Phone Unavailable Primary Care Provider Unavailabl e Encounter Details Date Type Department Care Team (Late st Contact Info) Description 01/31/2019 Transcribed Document [facility] [place] Medicine [address] [place] [address] ProviderEmilia MD [address] [place], [place] [phone] Social History Tobacco Use Types Packs/Day Years [...]
--- OUTSIDE RECORDS SUMMARY | 2025-02-01 16:05 | XMS_ITS | Encounter Summary ---
Author Organization [employer] ([place], [place], [place], [place]) Address [address] [place] [address] Care Team Providers Care Garbage Depot Worker Name Role Phone Unavailable Primary Care Provider Unavailabl e Encounter Details Date Type Department Care Team (Late st Contact Info) Description 01/31/2019 Transcribed Document [facility] [place] [facility] [place] [address] ProviderEmilia MD [address] [place], [place] [id number] Social History Tobacco Use Types Packs/Day Years [...] History of obstructive sleep apnea / IMO [id number] / Confirmed, Active Problems (6) CKD (chronic kidney disease) Diabetes mellitus GERD (gastroesophageal reflux disease) History of obstructive sleep apnea [place]KAH (hard of hearing) Hypertension Objective VS/Measurements Vitals [...]
--- OUTSIDE RECORDS SUMMARY | 2025-02-01 16:05 | XMS_ITS | Encounter Summary ---
Author Organization [employer] ([place], [place], [place], [place]) Address [address] [place] [address] Care Team Providers Care Window Installer Name Role Phone Unavailable Primary Care Provider Unavailabl e Encounter Details Date Type Department Care Team (Late st Contact Info) Description 01/30/2019 Transcribed Document [facility] [place] Family Medicine [address] [place] [address] ProviderEmilia MD [address] [place], [place] [address] Social History Tobacco Use Types Packs/Day Years [...]
--- OUTSIDE RECORDS SUMMARY | 2025-02-01 16:05 | XMS_ITS | Encounter Summary ---
Author Organization [employer] ([place], [place], [place], [place]) Address [address] [place] [address] Care Team Providers Care Costuming Supervisor Name Role Phone Unavailable Primary Care Provider Unavailabl e Encounter Details Date Type Department Care Team (Late st Contact Info) Description 02/01/2019 Transcribed Document [facility] Cardiology [address] [place] [address] [place] [address] [place] [address] [address] [place] [address] Social History Tobacco Use Types [...] 24 Hours) Radiology Results (Last 48 hours) [id number] -- 01/29/2019 21:34 CR Chest 2 Vws [...] normal. a. Recent abnormal stress testing at [facility] 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 PLAN; 02/01/19 [facility] today unremarkable. Recommend tight BP control. NOthing further to add. Follow up with Dr Daily 2-3 weeks. Will sign off. 01/31/2019 Add amlodipine. If persitent HTN will increase Defer [place] I for now secondary to renal dysfunction Other Rx appropriate nephrology recs pending [facility] tomorrow if renal function stable. 01/30/2019 Continue aspirin/Plavix/rosuvastatin/coreg. Change home isosorbide dinitrate to him before 60 mg daily. Echocardiogram IV hydration DC [place] I Plan for [facility] once renal function stable. Consider nephrology evaluation documented in this encounter Plan of Treatment Not on file documented as of this encounter Visit Diagnoses Not on filedocumented in this encounter
--- OUTSIDE RECORDS SUMMARY | 2025-02-01 16:05 | XMS_ITS | Encounter Summary ---
Author Organization [employer] ([place], [place], [place], [place]) Address [address] [place] [address] Care Team Providers Care Public Weigher Name Role Phone Unavailable Primary Care Provider Unavailabl e Encounter Details Date Type Department Care Team (Late st Contact Info) Description 01/31/2019 Transcribed Document [facility] [place] [facility] [place] [address] ProviderEmilia MD [address] [place], [place] [id number] Social History Tobacco Use Types Packs/Day Years Used Date Smoking Tobacco: Never Assessed Sex and Gender Information Value Date Recorded Sex Assigned at Not on file Legal Sex Male 5:19 PM CDT Gender Identity Not on file Sexual Orientation Not on file documented as of this encounter Miscellaneous Notes * Cerner Conversion Note - Historical ProviderMD - 01/31/2019 2:00 AM CDT Delivery Lead Details Entered On: 01/31/2019 2:33 EDT Performed [...]
--- OUTSIDE RECORDS SUMMARY | 2025-02-01 16:05 | XMS_ITS | Encounter Summary ---
Author Organization [employer] ([place], [place], [place], [place]) Address [address] [place] [address] Care Team Providers Care Legal Secretary Receptionist Name Role Phone Unavailable Primary Care Provider Unavailabl e Encounter Details Date Type Department Care Team (Late st Contact Info) Description 02/01/2019 Transcribed Document [facility] [place] [address] ProviderEmilia MD [address] [place], [place] [phone] Social History Tobacco Use Types Packs/Day Years [...]
--- OUTSIDE RECORDS SUMMARY | 2025-02-01 16:05 | XMS_ITS | Encounter Summary ---
Author Organization [employer] ([place], [place], [place], [place]) Address [address] [place] [address] Care Team Providers Care Geoint Analyst Name Role Phone Unavailable Primary Care Provider Unavailabl e Encounter Details Date Type Department Care Team (Late st Contact Info) Description 02/01/2019 Transcribed Document [facility] [place] Medicine [address] [place] [address] ProviderEmliia MD [address] [place], [place] [phone] Social History Tobacco Use Types Packs/Day Years [...]
--- OUTSIDE RECORDS SUMMARY | 2025-02-01 16:05 | XMS_ITS | Encounter Summary ---
Author Organization [employer] ([place], [place], [place], [place]) Address [address] [place] [address] Care Team Providers Care Forest Fire Prevention Manager Name Role Phone Unavailable Primary Care Provider Unavailabl e Encounter Details Date Type Department Care Team (Late st Contact Info) Description 02/01/2019 Transcribed Document [facility] [place] [facility] [address] MD [address] [place], [place] [address] Social History Tobacco Use Types Packs/Day Years [...] Morbid obesity. DISCHARGE INSTRUCTIONS: Diet: According to Citizen Of [place] Heart Association. Activities: As tolerated. Followup appointment [...] chronic kidney disease, has been followed by primary education professor. Recommended patient to follow up as outpatient [...]
--- OUTSIDE RECORDS SUMMARY | 2025-02-01 16:05 | XMS_ITS | Referral Summary ---
Author Organization [employer] [facility] ([place], [place], [place], [place]) Address [address] [place] [address] Care Team Providers Care Donor Recruiter Name Role Phone Unavailable Primary Care Provider [...]
--- OUTSIDE RECORDS SUMMARY | 2025-02-01 16:05 | XMS_ITS | Encounter Summary ---
Author Organization [employer] ([place], [place], [place], [place]) Address [address] [place] [address] Care Team Providers Care Environmental Auditor Name Role Phone Unavailable Primary Care Provider Unavailabl e Encounter Details Date Type Department Care Team (Late st Contact Info) Description 02/02/2019 Transcribed Document [facility] [place] [address] ProviderEmilia MD [address] [place], [place] [address] Social History Tobacco Use Types Packs/Day Years [...] History of obstructive sleep apnea / IMO [id number] / Confirmed, Active Problems (6) CKD (chronic kidney disease) Diabetes mellitus GERD (gastroesophageal reflux disease) History of obstructive sleep apnea [place] (hard of hearing) Hypertension Objective VS/Measurements Vitals [...]
--- OUTSIDE RECORDS SUMMARY | 2025-02-01 16:05 | XMS_ITS | Encounter Summary ---
Author Organization [employer] ([place], [place], [place], [place]) Address [address] [place] [address] Care Team Providers Care Propulsion Generator Repairer Name Role Phone Unavailable Primary Care Provider Unavailabl e Encounter Details Date Type Department Care Team (Late st Contact Info) Description 02/03/2019 Transcribed Document [facility] [place] [facility] [place] [address] ProviderEmilia MD [address] [place], [place] [phone] Social History Tobacco Use Types Packs/Day Years [...] Numbers : Insurance 1 Health Plan: [employer] [facility] Policy Number: [id number] Authorization Number: Insurance Primary Name : [employer] [facility] Policy Number: [id number] Authorization Status-Primary : Notification only Authorization Number-Primary : [id number] Authorized Service Begin Date-Primary : 01/29/2019 EDT Authorization Comments-Primary : Per call from Esperanza approved IP admission. Historical Authorization Comments-Primary : Comment 1: rec'd call from [facility] this am re: does not meet IP, did we want to change to OBS or have it routed to medical imaging technician? Pt had heart cath planned for today, asked him to wait for outcome of C. Cath unremarkable per cards note, discussed case w/ DMc who requests leave as IP and have it routed to med director. Call back to [facility] to request route to MD. (MANOLO CHAU, RN-Utilization Review 02/01/2019 14:35) Comment 2: Received voice mail on main line from Doris at [facility] stating that pt OBS, not meeting for INPT and we need to send more clinical if we have any. ph# [phone] fx# [phone] Made Manolo De Jesus aware as she is following the patient today. (MALIHA DOSHI, Ditto Machine Operator 02/01/2019 13:11) Comment 3: Per [facility] notes Notify Payer of Admission - InProgress - faxed clinicals via cerner. (MIRYAM KOTHARI RN 01/30/2019 13:46) MIRYAM KOTHARI RN - 02/03/2019 9:44 EDT documented in this encounter Plan of Treatment Not on file documented as of this encounter Visit Diagnoses Not on filedocumented in this encounter
--- OUTSIDE RECORDS SUMMARY | 2025-02-01 16:05 | XMS_ITS | Encounter Summary ---
Author Organization [employer] ([place], [place], [place], [place]) Address [address] [place] [address] Care Team Providers Care Software Asset Management Analyst Name Role Phone Unavailable Primary Care Provider Unavailabl e Encounter Details Date Type Department Care Team (Late st Contact Info) Description 02/02/2019 Transcribed Document [facility] [place] [facility] [place] [address] ProviderEmilia MD [address] [place], [place] [address] Social History Tobacco Use Types Packs/Day Years Used Date Smoking Tobacco: Never Assessed Sex and Gender Information Value Date Recorded Sex Assigned at Not on file Legal Sex Male 5:19 PM CDT Gender Identity Not on file Sexual Orientation Not on file documented as of this encounter Miscellaneous Notes * Cerner Conversion Note - Historical ProviderMD - 02/02/2019 2:00 AM CDT Director Mortgage Details Entered On: 02/02/2019 6:46 EDT Performed [...]
--- OUTSIDE RECORDS SUMMARY | 2025-02-01 16:05 | XMS_ITS | Encounter Summary ---
Author Organization [employer] ([place], [place], [place], [place]) Address [address] [place] [address] Care Team Providers Care Roofer Metal Name Role Phone Unavailable Primary Care Provider Unavailabl e Encounter Details Date Type Department Care Team (Late st Contact Info) Description 01/30/2019 Transcribed Document [facility] [place] [facility] [place] [address] ProviderEmilia MD [address] [place], [place] [address] Social History Tobacco Use Types Packs/Day Years [...] History of obstructive sleep apnea / IMO [id number] / Confirmed, Active Problems (6) CKD (chronic kidney disease) Diabetes mellitus GERD (gastroesophageal reflux disease) History of obstructive sleep apnea [place] (hard of hearing) Hypertension Objective VS/Measurements Vitals [...]
--- OUTSIDE RECORDS SUMMARY | 2025-02-01 16:05 | XMS_ITS | Encounter Summary ---
Author Organization [facility] [employer] [facility] ([place], [place], [place], [place]) Address [address] [place] [address] Care Team Providers Care Web Specialist Name Role Phone Unavailable Primary Care Provider Unavailabl e Encounter Details Date Type Department Care Team (Late st Contact Info) Description 02/01/2019 Transcribed Document [facility] [place] [facility] [place] [address] ProviderEmilia MD [address] [place], [place] [phone] Social History Tobacco Use Types Packs/Day Years [...] History of obstructive sleep apnea / IMO [id number] / Confirmed, Active Problems (6) CKD (chronic kidney disease) Diabetes mellitus GERD (gastroesophageal reflux disease) History of obstructive sleep apnea [place] (hard of hearing) Hypertension Objective VS/Measurements Vitals [...]
--- OUTSIDE RECORDS SUMMARY | 2025-02-01 16:05 | XMS_ITS | Encounter Summary ---
Author Organization [employer] ([place], [place], [place], [place]) Address [address] [place] [address] Care Team Providers Care Edge Plugger Name Role Phone Unavailable Primary Care Provider Unavailabl e Encounter Details Date Type Department Care Team (Late st Contact Info) Description 05/18/2019 Transcribed Document [facility] [place] Family Medicine [address] [place] [address] ProviderEmilia MD [address] [place], [place] [phone] Social History Tobacco Use Types Packs/Day Years Used Date Smoking Tobacco: Never Assessed Sex and Gender Information Value Date Recorded Sex Assigned at Not on file Legal Sex Male 5:19 PM CDT Gender Identity Not on file Sexual Orientation Not on file documented as of this encounter Miscellaneous Notes * Cerner Conversion Note - Historical ProviderMD - 05/18/2019 2:22 PM SPA ASSISTANT MANAGER Pain Assessment Entered On: 05/18/2019 15:25 EST Performed On: 05/18/2019 15:25 EST by ERICA MONROY RN Intervention Information: morphine Performed by ERICA MONROY RN on 05/18/2019 14:38:00 EST morphine,4mg IV Push,Right Antecubit Winner Pain Assessment Pain Assessment : Follow-up assessment Pain Scale Used : 0-10 Scale ERICA MONROY RN - 05/18/2019 15:25 EST Pain Scale Intensity : 5 ERICA MONROY RN - 05/18/2019 15:25 EST Image 4 - Images currently included in the form version of this document have not been included in the text rendition version of the form. Electronically signed by Kiara Van Conversion Promotional Advertising Assistant Cerner at 10/22/2022 10:58 PM CDT documented in this encounter Plan of Treatment Not on file documented as of this encounter Visit Diagnoses Not on filedocumented in this encounter
--- OUTSIDE RECORDS SUMMARY | 2025-02-01 16:05 | XMS_ITS | Encounter Summary ---
Author Organization [employer] ([place], [place], [place], [place]) Address [address] [place] [address] Care Team Providers Care Deck Steward Name Role Phone Unavailable Primary Care Provider Unavailabl e Encounter Details Date Type Department Care Team (Late st Contact Info) Description 02/02/2019 Transcribed Document [facility] [place] Family Medicine [facility] [place] [address] ProviderEmilia MD [address] [place], [place] [phone] Social History Tobacco Use Types Packs/Day Years [...] Stated) GERD (gastroesophageal reflux disease) (Patient Stated) [place] (hard of hearing) (Patient Stated) History of [...] 40.6 kg/m2 Critical (01/29/19 22:48:00) Rapid Response Deck Steward #1 : SHEREEN ZURITA V, RN SHEREEN ZURITA V RN - 02/02/2019 1:36 EDT documented in this encounter Plan of Treatment Not on file documented as of this encounter Visit Diagnoses Not on filedocumented in this encounter
--- OUTSIDE RECORDS SUMMARY | 2025-02-01 16:05 | XMS_ITS | Encounter Summary ---
Author Organization [employer] ([place], [place], [place], [place]) Address [address] [place] [address] Care Team Providers Care Coining Press Operator Name Role Phone Unavailable Primary Care Provider Unavailabl e Encounter Details Date Type Department Care Team (Late st Contact Info) Description 01/30/2019 Transcribed Document [facility] Cardiology [address] [place] [address] [place] [address] [place] [address] [address] [place] [address] Social History Tobacco Use Types Packs/Day Years [...] and diabetes mellitus type 2 presented to [facility] with complaints of progressive chest pain with associated palpitations shortness of air and cough via [facility]. He unerwent stress testing at their facility [...] CKD (chronic kidney disease) / SNOMED CT 6050186443 / Confirmed Diabetes mellitus / SNOMED CT 319607185 / Confirmed GERD (gastroesophageal reflux disease) / SNOMED CT 123193818 / Confirmed [place] (hard of hearing) / SNOMED CT 38575522 / Confirmed History of obstructive sleep apnea / IMO 70695123 / Confirmed Hypertension / SNOMED CT 9735742801 / Confirmed Inactive: Arrhythmia / SNOMED CT 3870580933, Active Problems (6) CKD (chronic kidney disease) Diabetes mellitus GERD (gastroesophageal reflux disease) History of obstructive sleep apnea [place] (hard of hearing) Hypertension Histories No education [...] Procedure history: CORONARY ARTERY BYPASS GRAFT. CHOLECYSTECTOMY (50783). CATARACT REMOVAL INSERTION OF LENS (20184). Right knee replacement. Hernia Repair. Carotid Endardectomy. [...] (Current Encounter/Past 24 Hours) ProBNP 234 pg/mL [place] 01/29/2019 23:10 Blood Gases (Current Encounter/Past 24 [...] IV hydration DC MONTSERRAT I Plan for [facility] once renal function stable. Consider nephrology evaluation documented in this encounter Plan of Treatment Not on file documented as of this encounter Visit Diagnoses Not on filedocumented in this encounter
--- OUTSIDE RECORDS SUMMARY | 2025-02-01 16:05 | XMS_ITS | Encounter Summary ---
Author Organization [facility] Address [address] [place] [address] Care Team Providers Care Rhinestone Setter Name Role Phone Addison Rizzo DO Primary Care Provider Pcp, No Primary Care Provider Unavailabl e Addison Rizzo DO Unavailable [phone] Brooklyn Redmond LPN Unavailable Unavailable Encounter Details Date Type Department Care Team (Late st Contact Info) Description 06/12/2024 Lab Requisition [facility] [address] [place] [address] Julien Matthews [address] [place] [address] Encounter for general adult medical [...] place to sleep or slept in a long-term (including now)? No 04/26/2024 PHQ-9 Answer Date [...] were you homeless or living in a long-term (including now)? No 06/14/2024 CAGE ASSESSMENT Answer [...] drink first t alyx in the morning (EYE-TWISTING DEPARTMENT END FINDER) to steady your nerves or to get rid of a hangover? 0 09/05/2023 CAGE Questionnaire Score 0 024 Utilities Answer Date Recorded In the past 12 months has 5 examples, [employer], oil, or water [employer] threatened to shut off services in your [...] Result [facility] [address] [place] [address] * (ABNORMAL) Body Fluid Cell Count w/ [...] uL LAB HEMATOLOGY METHOD 06/13/2024 8:26 AM [facility] Neutrophils %, Body fluid 90 % LAB HEMATOLOGY METHOD 06/13/2024 8:26 AM [facility] Lymphocytes %, Body fluid 3 % LAB HEMATOLOGY METHOD 06/13/2024 8:26 AM [facility] Monocytes/Macr ophages %, Body fluid 7 % LAB HEMATOLOGY METHOD 06/13/2024 8:26 AM EST [facility] Eosinophils %, Body fluid 0 % LAB HEMATOLOGY METHOD 06/13/2024 8:26 AM [facility] Lining/Mesothe lial Cells %, Body fluid 0 % LAB HEMATOLOGY METHOD 06/13/2024 8:26 AM [facility] Neutrophils Absolute (PMN), Body fluid >90,000 uL LAB HEMATOLOGY METHOD 06/13/2024 8:26 AM EST [facility] Lymphocytes Absolute, Body fluid >3,000 uL LAB HEMATOLOGY METHOD 06/13/2024 8:26 AM [facility] Monocytes/Macr ophages Absolute, Body fluid >7,000 uL LAB HEMATOLOGY METHOD 06/13/2024 8:26 AM [facility] Eosinophils Absolute, Body fluid 0 uL LAB HEMATOLOGY METHOD 06/13/2024 8:26 AM [facility] Basophils Absolute, Body fluid 0 uL LAB HEMATOLOGY METHOD 06/13/2024 8:26 AM [facility] Lining/Mesothe lial Cells Absolute, Body fluid 0 uL LAB HEMATOLOGY METHOD 06/13/2024 8:26 AM [facility] Basophils %, Body fluid 0 % LAB HEMATOLOGY METHOD 06/13/2024 8:26 AM [facility] Joint Fluid Synovial structure / Unknown 06/12/2024 5:00 PM EST 06/13/2024 5:02 AM EST Julien Matthews LAB BODY FLUIDS AND STOOLS ORDERABLES NO SPECIMEN TYPE/SOURCE Final Result [facility] [address] [place] [address] * (ABNORMAL) Body Fluid Cell Count W/O [...] ORDER VANESSA Final Result Performing Organization Address City/[facility]/ZIP Co de Phone Number [facility] [address] [place] [address] * Joint Fluid Crystals (06/12/2024 5:00 PM EST) Crystals, Joint Fluid No Crystals Seen No Crystals Present 06/12/2024 11:03 PM EST [facility] Joint Fluid 06/12/2024 5:00 PM EST 06/12/2024 7:43 PM EST us Julien Matthews LAB BODY FLUIDS AND STOOLS ORDER VANESSA Final Result Performing Organization Address City/[facility]/ZIP Co de Phone Number [facility] [address] [place] [address] documented in this encounter Visit Diagnoses Diagnosis [...] documented as of this encounter Care Teams Rhinestone Setter Relationship Specialty Start Date End Date Addison Rizzo DO [address] [place] [address] PCP - General 04/26/24 06/23/24 [place] [address] PCP - General Family Medicine 06/24/24 Addison Rizzo DO [address] [place] [address] 06/24/24 Brooklyn Redmond LPN [employer] [address] TCM Nurse 06/23/24 07/23/24 documented as of this encounter
--- OUTSIDE RECORDS SUMMARY | 2025-02-01 16:05 | XMS_ITS | Encounter Summary ---
Author Organization [employer] ([place], [place], [place], [place]) Address [address] [place] [address] Care Team Providers Care Residential Door Unit Installer Name Role Phone Unavailable Primary Care Provider Unavailabl e Encounter Details Date Type Department Care Team (Late st Contact Info) Description 02/02/2019 Transcribed Document [facility] [place] Family Medicine [facility] [place] [address] ProviderEmilia MD [address] [place], [place] [phone] Social History Tobacco Use Types Packs/Day Years [...]
--- OUTSIDE RECORDS SUMMARY | 2025-02-01 16:05 | XMS_ITS | Encounter Summary ---
Author Organization [employer] ([place], [place], [place], [place]) Address [address] [place] [address] Care Team Providers Care Podiatrist Name Role Phone Unavailable Primary Care Provider Unavailabl e Encounter Details Date Type Department Care Team (Late st Contact Info) Description 02/01/2019 Transcribed Document [facility] [place] Family Medicine [facility] [place] [address] ProviderEmilia MD [address] [place], [place] [address] Social History Tobacco Use Types Packs/Day Years Used Date Smoking Tobacco: Never Assessed Sex and Gender Information Value Date Recorded Sex Assigned at Not on file Legal Sex Male 5:19 PM CDT Gender Identity Not on file Sexual Orientation Not on file documented as of this encounter Miscellaneous Notes * Cerner Conversion Note - Historical ProviderMD - 02/01/2019 2:00 AM CDT Fire Claims Adjuster Details Entered On: 02/01/2019 4:35 EDT Performed [...]
--- OUTSIDE RECORDS SUMMARY | 2025-02-01 16:05 | XMS_ITS | Encounter Summary ---
Author Organization [employer] ([place], [place], [place], [place]) Address [address] [place] [address] Care Team Providers Care Db2 Systems Programmer Name Role Phone Unavailable Primary Care Provider Unavailabl e Encounter Details Date Type Department Care Team (Late st Contact Info) Description 01/29/2019 Transcribed Document [facility] [place] [facility] [place] [address] ProviderEmilia MD [address] [place], [place] [address] Social History Tobacco Use Types Packs/Day Years [...]
--- OUTSIDE RECORDS SUMMARY | 2025-02-01 16:05 | XMS_ITS | Encounter Summary ---
Author Organization [employer] ([place], [place], [place], [place]) Address [address] [place] [address] Care Team Providers Care Track Liner Operator Name Role Phone Unavailable Primary Care Provider Unavailabl e Encounter Details Date Type Department Care Team (Late st Contact Info) Description 02/02/2019 Transcribed Document [facility] [place] [facility] [place] [address] ProviderEmilia MD [address] [place], [place] [phone] Social History Tobacco Use Types Packs/Day Years [...]
--- OUTSIDE RECORDS SUMMARY | 2025-02-01 16:05 | XMS_ITS | Encounter Summary ---
Author Organization [employer] ([place], [place], [place], [place]) Address [address] [place] [address] Care Team Providers Care Yarn Skeins Examiner Name Role Phone Unavailable Primary Care Provider Unavailabl e Encounter Details Date Type Department Care Team (Late st Contact Info) Description 05/18/2019 Transcribed Document [facility] [place] Family Medicine [facility] [place] [address] ProviderEmilia MD [address] [place] [address] Social History Tobacco Use Types Packs/Day Years Used Date Smoking Tobacco: Never Assessed Sex and Gender Information Value Date Recorded Sex Assigned at Not on file Legal Sex Male 5:19 PM CDT Gender Identity Not on file Sexual Orientation Not on file documented as of this encounter Miscellaneous Notes * Cerner Conversion Note - Emilia St MD - 05/18/2019 6:16 PM MEDICAL ADMINISTRATOR [facility] [place], [place] [phone] JOHNATHAN PARHAM :1955 Visit Time:05/18/2019 Your Visit [...] Within 2 to 3 days Where: [address] [place] [address]- Business (1) Allergies Contrast Dye Immunizations This [...] range between ( 0.0 and 7.0 ) [place] #: 0.45 K/uL -- Normal range between ( 0.16 and 1.00 ) Eos #: 0.15 x10(3)/uL -- Normal range between ( 0.00 and 0.80 ) [place] %: 8.3 % -- Normal range between [...] these instructions at home: Medicines ??? Take umxx-mrg-ptsfbar and prescription medicines only as told by [...] you work with a diet and dairy nutrition consultant (registered dietitian) to educate you about healthy [...] 2006 Document Revised: 07/28/2017 Document Reviewed: 07/28/2017 [employer] Interactive Patient Education ?? 2019 [employer] Emergency Awareness and Preventative Care STROKE [...] Assistance with quitting is available by contacting 3-694-VMNUNOW. This is a free resource providing counseling, [...] was given the opportunity to ask questions. Patient/Cab Station Attendant Name: Patient/Cab Station Attendant Signature: Relationship to Patient: Clinician/Hospital Cab Station Attendant Signature: Please Provide a Telephone Number Where You Can Be Reached: Is it Permissible To Leave a Message? Date: Electronically signed by Rehan, Kiara Conversion Food Preparation Kitchen Aide Michelner at 10/22/2022 11:07 PM CDT documented in this encounter Plan of Treatment Not on file documented as of this encounter Visit Diagnoses Not on filedocumented in this encounter
--- OUTSIDE RECORDS SUMMARY | 2025-02-01 16:05 | XMS_ITS | Encounter Summary ---
Author Organization [employer] ([place], [place], [place], [place]) Address [address] [place] [address] Care Team Providers Care Dough Mixer Name Role Phone Unavailable Primary Care Provider Unavailabl e Encounter Details Date Type Department Care Team (Late st Contact Info) Description 01/30/2019 Transcribed Document [facility] [place] [facility] [place] [address] ProviderEmilia MD [address] [place], [place] [phone] Social History Tobacco Use Types Packs/Day Years Used Date Smoking Tobacco: Never Assessed Sex and Gender Information Value Date Recorded Sex Assigned at Not on file Legal Sex Male 5:19 PM CDT Gender Identity Not on file Sexual Orientation Not on file documented as of this encounter Miscellaneous Notes * Cerner Conversion Note - Historical ProviderMD - 01/30/2019 2:00 AM CDT Equity Manager Details Entered On: 01/30/2019 2:21 EDT [...]
--- OUTSIDE RECORDS SUMMARY | 2025-02-01 16:05 | XMS_ITS | Encounter Summary ---
Author Organization [employer] ([place], [place], [place], [place]) Address [address] [place] [address] Care Team Providers Care Postal Carrier Name Role Phone Unavailable Primary Care Provider Unavailabl e Encounter Details Date Type Department Care Team (Late st Contact Info) Description 02/02/2019 Transcribed Document [facility] [place] [address] [place] [address] ProviderEmilia MD [address] [place], [place] [phone] Social History Tobacco Use Types Packs/Day Years [...] : N/A Warfarin Discharge Ins : N/A aKmi Rosenthal, Rn-Clinical Coordinator - 02/02/2019 12:40 EDT documented in this encounter Plan of Treatment Not on file documented as of this encounter Visit Diagnoses Not on filedocumented in this encounter
--- OUTSIDE RECORDS SUMMARY | 2025-02-01 16:05 | XMS_ITS | Encounter Summary ---
Author Organization [employer] ([place], [place], [place], [place]) Address [address] [place] [address] Care Team Providers Care Handkerchief Presser Name Role Phone Unavailable Primary Care Provider Unavailabl e Encounter Details Date Type Department Care Team (Late st Contact Info) Description 01/31/2019 Transcribed Document [facility] Cardiology [address] [place] [address] [place] [address] [place] [address] [address] [place] [address] Social History Tobacco Use Types Packs/Day Years [...] CKD (chronic kidney disease) / SNOMED CT 0946950905 / Confirmed Diabetes mellitus / SNOMED CT 292734704 / Confirmed GERD (gastroesophageal reflux disease) / SNOMED CT 316047178 / Confirmed [place] (hard of hearing) / SNOMED CT 33895705 / Confirmed History of obstructive sleep apnea / IMO 64662689 / Confirmed Hypertension / SNOMED CT 6685350462 / Confirmed, Active Problems (6) CKD (chronic kidney disease) Diabetes mellitus GERD (gastroesophageal reflux disease) History of obstructive sleep apnea [place] (hard of hearing) Hypertension Objective Intake and [...] 01/29/2019 23:10 Radiology Results (Last 48 hours) [id number] -- 01/29/2019 21:34 CR Chest 2 Vws [...] normal. a. Recent abnormal stress testing at [facility] 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 PLAN; 01/31/2019 Add amlodipine. If persitent HTN will increase Defer MONTSERRAT I for now secondary to renal dysfunction Other Rx appropriate nephrology recs pending [facility] tomorrow if renal function stable. 01/30/2019 Continue aspirin/Plavix/rosuvastatin/coreg. Change home isosorbide dinitrate to him before 60 mg daily. Echocardiogram IV hydration DC MONTSERRAT I Plan for [facility] once renal function stable. Consider nephrology evaluation documented in this encounter Plan of Treatment Not on file documented as of this encounter Visit Diagnoses Not on filedocumented in this encounter
--- OUTSIDE RECORDS SUMMARY | 2025-02-01 16:05 | XMS_ITS | Encounter Summary ---
Author Organization [employer] ([place], [place], [place], [place]) Address [address] [place] [address] Care Team Providers Care Regulatory Affairs Portfolio Leader Name Role Phone Unavailable Primary Care Provider Unavailabl e Encounter Details Date Type Department Care Team (Late st Contact Info) Description 02/02/2019 Transcribed Document [facility] [place] [address] ProviderEmilia MD [address] [place] [phone] Social History Tobacco Use Types Packs/Day Years [...] # 0.70 x10(3)/uL (Low) 02/02/2019 03:25 EDT [place] % 4.3 % 02/02/2019 03:25 EDT [place] # 0.35 K/uL 02/02/2019 03:25 EDT Eos % 0.0 % 02/02/2019 03:25 EDT Eos # 0.00 x10(3)/uL 02/02/2019 03:25 EDT Baso % 0.2 % 02/02/2019 03:25 EDT Baso # 0.02 x10(3)/uL 02/02/2019 03:25 EDT Slide Review No 02/02/2019 03:25 EDT IG# 0.06 x10(3)/uL (High) 02/02/2019 03:25 EDT IG% 0.70 % (High) 02/02/2019 03:25 EDT Electronically signed by Kiara Van Conversion Construction Management Assistant Cerner at 10/22/2022 11:09 PM CDT documented in this encounter Plan of Treatment Not on file documented as of this encounter Visit Diagnoses Not on filedocumented in this encounter
--- OUTSIDE RECORDS SUMMARY | 2025-02-01 16:05 | XMS_ITS | Encounter Summary ---
Author Organization [employer] ([place], [place], [place], [place]) Address [address] [place] [address] Care Team Providers Care Potato Spotter Name Role Phone Unavailable Primary Care Provider Unavailabl e Encounter Details Date Type Department Care Team (Late st Contact Info) Description 02/01/2019 Transcribed Document [facility] [place] [address] ProviderEmilia MD [address] [place], [place] [phone] Social History Tobacco Use Types Packs/Day Years [...] Numbers : Insurance 1 Health Plan: [place] Policy Number: [id number] Authorization Number: Insurance Primary Name : [employer] [place] Policy Number: [id number] Authorization Status-Primary : Awaiting callback Authorized Service Begin Date-Primary : 01/29/2019 EDT Authorization Comments-Primary : rec'd call from Roque/[facility] this am re: does not meet IP, did we want to change to OBS or have it routed to emergency medical tech? Pt had heart cath planned for today, asked him to wait for outcome of C. Cath unremarkable per cards note, discussed case w/ DMc who requests leave as IP and have it routed to med director. Call back to [facility]que[facility] to request route to MD. Historical Authorization Comments-Primary : Comment 1: Received voice mail on main line from Doris hanson [facility] stating that pt OBS, not meeting for INPT and we need to send more clinical if we have any. # [phone] fx# [phone] Made Cayla De Jesus aware as she is following the patient today. (MALIHA DOSHI, Surtass Analyst 02/01/2019 13:11) Comment 2: Per Star notes Notify Payer of Admission - InProgress - faxed clinicals via [employer]ner. (MIRYAM KOTHARI RN 01/30/2019 13:46) CAYLA CHAU, RN-Utilization Review - 02/01/2019 14:35 EDT documented in this encounter Plan of Treatment Not on file documented as of this encounter Visit Diagnoses Not on filedocumented in this encounter
--- OUTSIDE RECORDS SUMMARY | 2025-02-01 16:05 | XMS_ITS | Encounter Summary ---
Author Organization [employer] ([place], [place], [place], [place]) Address [address] [place] [address] Care Team Providers Care Stave Mill Hand Name Role Phone Unavailable Primary Care Provider Unavailabl e Encounter Details Date Type Department Care Team (Late st Contact Info) Description 02/01/2019 Transcribed Document [facility] [place] [facility] [place] [address] ProviderEmilia MD [address] [place], [place] [phone] Social History Tobacco Use Types Packs/Day Years [...]
--- OUTSIDE RECORDS SUMMARY | 2025-02-01 16:05 | XMS_ITS | Encounter Summary ---
Author Organization [employer] ([place], [place], [place], [place]) Address [address] [place] [address] Care Team Providers Care Spinning Machine Tender Name Role Phone Unavailable Primary Care Provider Unavailabl e Encounter Details Date Type Department Care Team (Late st Contact Info) Description 02/01/2019 Transcribed Document [facility] [place] [facility] [place] [address] ProviderEmilia MD [address] [place] [phone] Social History Tobacco Use Types Packs/Day Years [...] 76 mg/dL 01/31/2019 14:02 EDT Protein Ur [place] 14 mg/dL 01/31/2019 14:02 EDT WBC 5.9 [...] Lymph # 1.47 x10(3)/uL 02/01/2019 05:17 EDT [place] % 7.9 % 02/01/2019 05:17 EDT [place] # 0.47 K/uL 02/01/2019 05:17 EDT Eos [...]
--- OUTSIDE RECORDS SUMMARY | 2025-02-01 16:05 | XMS_ITS | Encounter Summary ---
Author Organization [employer] ([place], [place], [place], [place]) Address [address] [place] [address] Care Team Providers Care Obstetrics Gynecology Md Name Role Phone Unavailable Primary Care Provider Unavailabl e Encounter Details Date Type Department Care Team (Late st Contact Info) Description 01/30/2019 Transcribed Document [facility] [place] Medicine [facility] [place] [address] ProviderEmilia MD [address] [place], [place] [phone] Social History Tobacco Use Types Packs/Day Years [...] Numbers : Insurance 1 Health Plan: HU[employer]NA [place] Policy Number: [id number] Authorization Number: Insurance Primary Name : [employer] [place] Policy Number: [id number] Authorization Status-Primary : Awaiting callback Authorized Service [...]
--- OUTSIDE RECORDS SUMMARY | 2025-02-01 16:05 | XMS_ITS | Encounter Summary ---
Author Organization [employer] ([place], [place], [place], [place]) Address [address] [place] [address] Care Team Providers Care Ship Construction Teacher Name Role Phone Unavailable Primary Care Provider Unavailabl e Encounter Details Date Type Department Care Team (Late st Contact Info) Description 01/30/2019 Transcribed Document [facility] [place] [address] ProviderEmilia MD [address] [place], [place] [id number] Social History Tobacco Use Types Packs/Day Years [...] has been evaluated there and transferred to [facility]. Patient came in, blood work done [...]
--- OUTSIDE RECORDS SUMMARY | 2025-02-01 16:05 | XMS_ITS | Encounter Summary ---
Author Organization [employer] ([place], [place], [place], [place]) Address [address] [place] [address] Care Team Providers Care Manager Customer Name Role Phone Unavailable Primary Care Provider Unavailabl e Encounter Details Date Type Department Care Team (Late st Contact Info) Description 02/01/2019 Transcribed Document [facility] [place] [facility] [place] [address] ProviderEmilia MD [address] [place], [place] [phone] Social History Tobacco Use Types Packs/Day Years [...] On: 02/01/2019 13:11 EDT by MALIHA DOSHI, Derivatives Trader Primary Insurance Authorization Authorization and Policy Numbers : Insurance 1 Health Plan: [employer] Policy Number: [id number] Authorization Number: Insurance Primary Name : [employer] Policy Number: [id number] Authorization Status-Primary : Awaiting callback Authorized Service Begin Date-Primary : 01/29/2019 EDT Authorization Comments-Primary : Received voice mail on main line from Doris h[facility] stating that pt OBS, not meeting for INPT and we need to send more clinical if we have any. ph# [phone] fx# [phone] Made Cayla De Jesus aware as she is following the patient today. Historical Authorization Comments-Primary : Comment 1: Per Star notes Notify Payer of Admission - InProgress - faxed clinicals via cerner. (MIRYAM KOTHARI RN 01/30/2019 13:46) MALIHA DOSHI, Derivatives Trader - 02/01/2019 13:11 EDT documented in this encounter Plan of Treatment Not on file documented as of this encounter Visit Diagnoses Not on filedocumented in this encounter
--- OUTSIDE RECORDS SUMMARY | 2025-02-01 16:06 | XMS_ITS ---
Author Organization [facility] Care Team Providers Care Senior Water/Wastewater Engineer Name Role Phone Martina Reed Unavailable Unavailable JORGE RUBY Unavailable Unavailable Elvia Mcmahon Unavailable Unavailab Esperanza Mack Unavailable Unavailable Nestor Infante Unavailable Unavailable Allergies and adverse reactions Code CodeSystem Substance Reaction Severity StartDate Concern Status 7476 RXNORM Nitroprusside Unknown 11/13/2023 active Care Team Name Role Address Phone Organization Dates JORGE RUBY [facility] [address], [place], [address], [place] (Office): : [facility] 11/13/2023 - 01/07/2024 Martina Reed [address], [place], [address], [place] (Office): : : [facility] 11/13/2023 - 01/07/2024 Elvia Mcmahon [address], [place], [address], [facility] (Office): : : [facility] 11/13/2023 - 01/07/2024 Esperanza Barbour [address], [place], [place], [facility], [facility] (Office): : : [facility] 11/13/2023 - 01/07/[address] (Office): [facility] 11/13/2023 - 01/07/2024 Immunizations Immunization [...] CodeSystem Concern Status 1 OSTEOMYELITIS, UNSPECIFIED 12/06/[address] active 2 OTHER REDUCED MOBILITY 12/06/[address] active 3 ANEMIA, UNSPECIFIED 11/13/[address] active 4 ATHEROSCLEROTIC HEART DISEASE OF [place] CORONARY ARTERY WITHOUT ANGINA PECTORIS 11/13/[address] active 5 BENIGN PROSTATIC HYPERPLASIA WITH LOWER URINARY TRACT SYMPTOMS 11/13/[address] active 6 CHRONIC KIDNEY DISEASE, UNSPECIFIED 11/13/[address] active 7 DEPRESSION, UNSPECIFIED 11/13/[address] active 8 ESSENTIAL (PRIMARY) HYPERTENSION 11/13/[address] active 9 GASTRO-ESOPHAGEAL REFLUX DISEASE WITHOUT ESOPHAGITIS 11/13/[address] active 10 HYPERLIPIDEMIA, UNSPECIFIED 11/13/[address] active 11 HYPOTHYROIDISM, UNSPECIFIED 11/13/[address] active 12 INSOMNIA, UNSPECIFIED 11/13/[address] active 13 MORBID (SEVERE) OBESITY DUE TO EXCESS CALORIES 11/13/1911/13/[address] completed 14 MUSCLE WEAKNESS (GENERALIZED) 11/13/[address] active 15 OBSTRUCTIVE SLEEP APNEA (ADULT) (PEDIATRIC) 11/13/[address] active 16 OSTEOMYELITIS, UNSPECIFIED 11/13/19 24 11/13/[address] completed 17 OTHER ACUTE OSTEOMYELITIS, LEFT ANKLE AND FOOT 11/13/[address] active 18 OTHER ACUTE OSTEOMYELITIS, LEFT TIBIA AND FIBULA 11/13/[address] active 19 POST-TRAUMATIC STRESS DISORDER, UNSPECIFIED 11/13/[address] active 20 TYPE 2 DIABETES MELLITUS WITH DIABETIC NEUROPATHY, UNSPECIFIED 11/13/[address] active 21 UNSPECIFIED COMBINED SYSTOLIC (CONGESTIVE) AND DIASTOLIC (CONGESTIVE) HEART FAILURE 11/13/[address] active 22 HEMIPLEGIA AND HEMIPARESIS FOLLOWING CEREBRAL INFARCTION AFFECTING RIGHT DOMINANT SIDE 09/04/[address] active Reason for Referral No Reasons for Referral Entered Social History Social History Observation Description Start Date End Date Code Code System Current Smoking Status Tobacco smoking consumption unknown 215600650 SNOMED CT Sex Assigned At Male 1955 66083-3 [facility] Gender Identity Male 17216153425560 [address] Vital Signs Code Code System Vitals Name Values and Units Timing Information 8867-4 [facility] Heart rate Value=72.0 Units=/min 09/2023 8462-4 [facility] Blood Pressure-Diastolic Value=78 Un its=mmHg 01/07/2024 8480-6 [facility] Blood Pressure-Systolic Eovhi=395 Un its=mmHg 01/07/2024 9279-1 [facility] Respiratory Rate Value=18.0 Units=/m in 01/02/2024 8310-5 [facility] Body Temperature Value=97.8 Units= F 01/02/2024 64945-7 [facility] O2 % BldC Oximetry Value=94.0 Units= % 01/02/2024 87183-3 [facility] Pain Level Value=0.0 01/02/2024 43983-1 [facility] Weight Njsfc=235.4 Units=Lbs 05/2024 8302-2 LOINC Height Value=69.0 Units=Inches 11/13/2023
--- NOTE | 2025-02-01 16:23 | XR_ITS ---
PROCEDURE INFORMATION: Exam: XR Chest Exam date and time: 02/01/2025 4:26 PM Age: 69 years old Clinical indication: Cough; Additional info: Cough, SOB TECHNIQUE: Imaging protocol: Radiologic exam of the chest. Views: 2 views. COMPARISON: CR XR CHEST 2V 01/20/2025 11:14 AM FINDINGS: Lungs: Stable atelectasis in the left lung base. No focal consolidation.. Pleural spaces: Small left pleural effusion. No pneumothorax. Heart/Mediastinum: Stable cardiac silhouette Bones/joints: Median sternotomy IMPRESSION: Stable atelectasis in the left lung base. No focal consolidation.. Small left pleural effusion
[2025-02-01 18:33] LABS: Chloride 105 mmol/L (98-107); Potassium 4.7 mmoL/L (3.5-5.1); Sodium 135 mmol/L (136-145)
[2025-02-01 18:36] LABS: Blood Urea Nitrogen 23 mg/dl (9-20); Creatinine,Serum 1.70 mg/dl (0.66-1.25); Estimated Glomerular Filt Rate 40 ml/min (>60); GFR (African American) 49 ML/MIN (>60)
[2025-02-01 18:37] LABS: Anion Gap 9.7 mEq/L (5-15); Calcium 8.8 mg/dl (8.4-10.2); Carbon Dioxide 25 mmol/L (22.0-30.0); Glucose 116 mg/dl (74-100)
[2025-02-01 18:44] LABS: NT Pro Brain Natriuretic Pep. 3250 pg/mL (0-125)
== END 2025-02-01 23:59 | disposition home or self-care (01) ==
LOC: LAB 16:02
PROVIDERS: PCP Nurse Practitioner Family; Visit Provider Physician Assistant
DX: I11.9 Hypertensive heart disease without heart failure (principal); I50.9 Heart failure, unspecified; R79.89 Other specified abnormal findings of blood chemistry; Z95.1 Presence of aortocoronary bypass graft; R94.31 Abnormal electrocardiogram [ECG] [EKG]; I70.1 Atherosclerosis of renal artery; I65.23 Occlusion and stenosis of bilateral carotid arteries; I25.110 Atherosclerotic heart disease of native coronary artery with unstable angina pectoris
CPT/HCPCS: 36415; 71046; 80048; 83880

== ENCOUNTER 2025-02-03 15:00 | Outpatient (RCR) | payer OTHER, SELFPAY | END 2025-02-03 23:59 | disposition home or self-care (01) | LOC: OT 15:00 | PROVIDERS: PCP Nurse Practitioner Family; Visit Provider Family Medicine | DX: M67.912 Unspecified disorder of synovium and tendon, left shoulder (principal) | CPT/HCPCS: 97014; 97110; 97140; 97165; G0283 ==

== ENCOUNTER 2025-02-03 15:00 | Outpatient (RCR) | payer OTHER, SELFPAY ==
--- NOTE | 2025-01-25 16:52 | HMH.RHREAS ---
Rehab Reassessment Rehab OP Re-assessment Start: 01/04/25 17:05 Freq: Status: Active Protocol: Document 01/25/25 13:45 WENDY (Rec: 01/25/25 16:52 WENDY [id number]) E-signed By Price Hines PT Dynamic Gait Index Test Protocol Gait Level Surface Mild Impairment Query Text: Instructions: Walk at your normal speed from here to the next león (20'). Grading: León the lowest category that applies. Change in Gait Speed Mild Impairment Query Text: Instructions: Begin walking at your normal pace (for 5') , when I tell you go , walk as fast as you can (for 5'). When I tell you slow , walk as slowly as you can ( for 5'). Grading: Le[place] the lowest category that applies. Gait with Horizontal Mild Impairment Head Turns Query Text: Instructions: Begin walking at your normal pace. When I tell you to look right , keep walking straight, but turn you head to the right. Keep looking to the right unit I tell you look left , then keep walking straight and turn your head to the left. Keep your head to the left until I tell you look straight , then keep walking straight, but return you head to the center. Grading: Le[place] the lowest category that applies. Gait with Vertical Mild Impairment Head Turns Query Text: Instructions: Begin walking at your normal pace. When I tell you to look up , keep walking staight, but tip your head up. Keep looking up until I tell you to look down , then keep walking straight and tip your head down. Keep your head down until I tell you look straight , then keep walking straight, but return your head to the center. Grading: Le[place] the lowest category that applies. Gait and Pivot Turn Moderate Impairment Query Text: Instructions: Begin walking at your normal pace. When I tell you turn and stop , turn as quickly as you can to face the opposite direction and stop. Grading: León the lowest category that applies. Step Over Obstacle Moderate Impairment Query Text: Instructions: Begin walking at your normal speed. When you come to the shoebox, step over it, not around it and keep walking. Grading: Le[place] the lowest category that applies. Step Around Moderate Impairment Obstacles Query Text: Instructions: Begin walking at normal speed. When you come to the first cone (about 6' away) , walk around the right side of it. When you come to the second cone (6' past first cone), walk around it to the left. Grading: León the lowest category that applies. Steps Moderate Impairment Query Text: Instructions: Walk up these stairs as you would at home. At the top, turn around and walk down . Grading: León the lowest category that applies. Scoring Dynamic Gait Index 12 Score Rehab Re-assessment Subjective Subjective Pt reports that he is 50-60% improved this date. Reports that he has been sick for the past week with pneumonia and is afraid that he has taken a step back. Pt reports that he is having a much easier time walking in the home, walking into restaurants, getting up from chairs. Pt reports that he continues to have difficulty walking longer distances due to his endurance, issues with his balance. Pt reports that he was doing his home exercises daily but has not continued since he has been sick. Objective Objective Notes TUs (29s on IE) 5xSTS: 35s (28s on IE) FT EO on unstable surface for 30s Romberg: Failed MMT: - R hip flexion, abd, add: 3+ - R hip ext: 4-, knee extension,flexion: 4- - L hip/knee: 3+ grossly Assessment Progress Assessment Slower Than Expected Assessment Notes Pt presents for reassessment after 1 month of skilled PT. PT has consisted of LE strengthening, endurance training, balance training and gait training. The pt was responding well, however, he has been sick and presents with slightly worsened endurance this date. Pt with slightly slower times on his TUG and 5xSTS tests this date. However, he demonstrates an improved his DGI by 2 points. The pt would continue to benefit from skilled PT at this time to address his remaining deficits and impairments. Patient goals met ST,2,4 LT Plan Plan Continue as per initial POC Frequency of Therapy 2/week Duration of therapy 4 weeks Time and Billing Re-Eval Time 10 Re-Eval Billing 0 Units Charge for PT No reassessment? PHYSICIAN CERTIFICATION: I certify the specified therapy services for Johnathan Parham are required, authorized, and reviewed every 30 days.
== END 2025-02-03 23:59 | disposition home or self-care (01) ==
LOC: PT 15:00
PROVIDERS: PCP Nurse Practitioner Family; Visit Provider Family Medicine
DX: R26.81 Unsteadiness on feet (principal)
CPT/HCPCS: 97110; 97112; 97116; 97530

== ENCOUNTER 2025-03-01 14:00 | Outpatient (RCR) | payer MEDICARE, SELFPAY | END 2025-03-01 23:59 | disposition home or self-care (01) | LOC: OT 14:00 | PROVIDERS: PCP Nurse Practitioner Family; Visit Provider Family Medicine | DX: M67.912 Unspecified disorder of synovium and tendon, left shoulder (principal) | CPT/HCPCS: 97014; 97032; 97035; 97110; 97140; 97530; G0283 ==

== ENCOUNTER 2025-03-02 09:46 | Outpatient (CLI) | payer MEDICARE, SELFPAY ==
--- OUTSIDE RECORDS SUMMARY | 2025-03-02 09:51 | XMS_ITS | Encounter Summary ---
Author Organization [employer] ([place], [place], [place], [place]) Address [address] [place] [address] Care Team Providers Care Cake Decorator Name Role Phone Unavailable Primary Care Provider Unavailabl e Encounter Details Date Type Department Care Team (Late st Contact Info) Description 05/18/2019 Transcribed Document [facility] [place] [facility] [place] [address] ProviderEmilia MD [address] [place], [place] [phone] Social History Tobacco Use Types Packs/Day Years Used Date Smoking Tobacco: Never Assessed Sex and Gender Information Value Date Recorded Sex Assigned at Not on file Legal Sex Male 5:19 PM CDT Gender Identity Not on file Sexual Orientation Not on file documented as of this encounter Miscellaneous Notes * Cerner Conversion Note - Emilia ProviderMD - 05/18/2019 1:36 PM TREASURY ACCOUNTANT ED Assessment Entered On: 05/18/2019 14:43 EST [...] Communication Barrier : None Primary Language : Kazakh Any Spiritual/Cultural Needs or Requests : No [...] Rhythm : Regular Nail Bed Color : [place] Chest Pain : Yes ERICA MONROY RN [...] EST Electronically signed by Rehan, [place] Conversion Supervisor Acoustical Tile Carpenters Cerner at 10/22/2022 11:12 PM CDT documented in this encounter Plan of Treatment Not on file documented as of this encounter Visit Diagnoses Not on filedocumented in this encounter
--- OUTSIDE RECORDS SUMMARY | 2025-03-02 09:51 | XMS_ITS | Clinical Summary ---
Author Organization [facility] Address [address] [place] [address], [address] [place] [address] Care Team Providers Care Can Crimper Name Role Phone Estefania Bueno MD Primary [...] of Treatment Not on file Care Teams Can Crimper Relationship Specialty Start Date End Date Estefania Bueno MD [address] [place] [address] PCP - General 01/15/12
--- OUTSIDE RECORDS SUMMARY | 2025-03-02 09:51 | XMS_ITS | Encounter Summary ---
Author Organization [employer] ([place], [place], [place], [place]) Address [address] [place] [address] Care Team Providers Care Sales And Management Trainee Name Role Phone Unavailable Primary Care Provider Unavailabl e Encounter Details Date Type Department Care Team (Late st Contact Info) Description 05/18/2019 Transcribed Document [facility] [place] Family Medicine [facility] [place] [address] ProviderEmilia MD [address] [place], [place] [phone] Social History Tobacco Use Types Packs/Day Years Used Date Smoking Tobacco: Never Assessed Sex and Gender Information Value Date Recorded Sex Assigned at Not on file Legal Sex Male 5:19 PM CDT Gender Identity Not on file Sexual Orientation Not on file documented as of this encounter Miscellaneous Notes * [employer]ner Conversion Note - Historical ProviderMD - 05/18/2019 4:07 PM PLUG SAW OPERATOR CR Chest 1 Vw Portable Ordered: 05/18/2019 Modified Reason for Exam: Chest Pain 05/18/2019 15:58 05/18/2019 16:07 (JORDAN GOMES) No further action required documented in this encounter Plan of Treatment Not on file documented as of this encounter Visit Diagnoses Not on filedocumented in this encounter
--- OUTSIDE RECORDS SUMMARY | 2025-03-02 09:51 | XMS_ITS | Encounter Summary ---
Author Organization [employer] ([place], [place], [place], [place]) Address [address] [place] [address] Care Team Providers Care Casing Trimmer Name Role Phone Unavailable Primary Care Provider Unavailabl e Encounter Details Date Type Department Care Team (Late st Contact Info) Description 01/29/2019 Transcribed Document [facility] [place] [facility] [place] [address] ProviderEmilia MD [address] [place], [place] [phone] Social History Tobacco Use Types Packs/Day Years [...] From : Emergency department Legal Guardian : paper cup handle machine operator Support Person/Patient Can Sorter : No Want Family/Rep/Phys Notified of Admit : No Emergency Contact #1 : Samara Carey Emergency Contact #1 Emergency Contact #1 Relationship : Girlfriend Emergency Contact #2 : N/a Emergency Contact #2 Phone Number : N/a Emergency Contact #2 Relationship : N/a Information Obtained From : Patient Primary Language : Japanese Preferred Communication Mode : Verbal Communication Barrier [...] Scale Risk Level : 0-24 Low Risk [place] Fall Interventions : Adequate lighting, Bed in [...] Source : Stated Height Entry Format : [place] Height, Feet : 6 ft(Converted to: 183 cm, 72 Inch) Height, Inches : 0 Inch(Converted to: 0 ft 0 Inch, 0.00 cm) Clinical Height : 182.88 cm Weight Source : Bed scale Weight Entry Format : [place] Clinical Dosing Weight : 135.91 kg Weight, Pounds : 299 lb Body Surface Area (BSA) : 2.53 m2 Body Mass Index : 40.6 kg/m2 (>HHI) [place] Body Weight : 77 kg Ana Villeda [...] Service : Appropriate Arterial Line : No Aan Villeda Rn - 01/29/2019 22:41 EDT Nutrition [...] Any Spiritual/Cultural Needs or Requests : No Orthodox Preference : Shinto Ana Villeda Rn - 01/29/2019 22:41 EDT [...] EDT Electronically signed by Kiara Van Conversion Boilers And Pressure Vessels Inspector Cerner at 10/22/2022 11:02 PM CDT documented in this encounter Plan of Treatment Not on file documented as of this encounter Visit Diagnoses Not on filedocumented in this encounter
--- OUTSIDE RECORDS SUMMARY | 2025-03-02 09:51 | XMS_ITS | Encounter Summary ---
Author Organization [employer] ([place], [place], [place], [place]) Address [address] [place] [address] Care Team Providers Care Maintenance Mechanic Elevators Name Role Phone Unavailable Primary Care Provider Unavailabl e Encounter Details Date Type Department Care Team (Late st Contact Info) Description 05/18/2019 Transcribed Document [facility] [place] [facility] [place] [address] ProviderEmilia MD [address] [place], [place] [phone] Social History Tobacco Use Types Packs/Day Years Used Date Smoking Tobacco: Never Assessed Sex and Gender Information Value Date Recorded Sex Assigned at Not on file Legal Sex Male 5:19 PM CDT Gender Identity Not on file Sexual Orientation Not on file documented as of this encounter Miscellaneous Notes * Cerner Conversion Note - Emilia ProviderMD - 05/18/2019 1:36 PM SCIENTIFIC SOFTWARE DEVELOPER ED Triage Entered On: 05/18/2019 13:41 EST [...] : 2 - Emergent Tracking Group : [facility] ED Shelby Jefferson RN - 05/18/2019 13:38 EST Mode of Arrival : Stretcher Transported to ED by : Ambulance/ALS EMS Service : [facility] To Room Via : Stretcher Accompanied By : Unaccompanied TELETYPESETTER MONITOR Medications and Interventions : Document ED Vital Signs : Document Height & Weight : Document ED Allergies : Document ED Reason for Visit : Document Tetanus Immunization : Unknown University Administrative Assistant Needed : No Shelby Jefferson RN - [...] Problems(Active) CKD (chronic kidney disease) (SNOMED CT :3443641270 ) Name of Problem: CKD (chronic kidney disease) ; Recorder: Ana Villeda RN; Confirmation: Confirmed ; Classification: Patient Stated ; Code: 3401260599 ; Contributor System: Wedding Spot ; Last Updated: 01/29/2019 22:37 EDT ; Life Cycle Date: 01/29/2019 ; Life Cycle Status: Active ; Vocabulary: SNOMED CT Diabetes mellitus (SNOMED CT :790183263 ) Name of Problem: Diabetes mellitus ; Recorder: Ana Villeda RN; Confirmation: Confirmed ; Classification: Patient Stated ; Code: 611094614 ; Contributor System: [employer] ; Last Updated: 01/29/2019 22:37 EDT ; Life Cycle Date: 01/29/2019 ; Life Cycle Status: Active ; Vocabulary: SNOMED CT GERD (gastroesophageal reflux disease) (SNOMED CT :113150079 ) Name of Problem: GERD (gastroesophageal reflux disease) ; Recorder: Ana Villeda RN; Confirmation: Confirmed ; Classification: Patient Stated ; Code: 888069019 ; Contributor System: Wedding Spot ; Last Updated: 01/29/2019 22:37 EDT ; Life Cycle Date: 01/29/2019 ; Life Cycle Status: Active ; Vocabulary: SNOMED CT History of obstructive sleep apnea (IMO :47279607 ) Name of Problem: History of obstructive sleep apnea ; Recorder: SYSTEM, SYSTEM; Confirmation: Confirmed ; Classification: Medical ; Code: 88532955 ; Last Updated: 01/29/2019 22:48 EDT ; Life Cycle Date: 01/29/2019 ; Life Cycle Status: Active ; Vocabulary: IMO NEZ PERCE (hard of hearing) (SNOMED CT :04620477 ) Name of Problem: NEZ PERCE (hard of hearing) ; Recorder: Ana Villeda RN; Confirmation: Confirmed ; Classification: Patient Stated ; Code: 97586369 ; Contributor System: Wedding Spot ; Last Updated: 01/29/2019 22:37 EDT ; Life Cycle Date: 01/29/2019 ; Life Cycle Status: Active ; Vocabulary: SNOMED CT Hypertension (SNOMED CT :9782341978 ) Name of Problem: Hypertension ; Recorder: Ana Villeda RN; Confirmation: Confirmed ; Classification: Patient Stated ; Code: 4350814567 ; Contributor System: Wedding Spot ; Last Updated: 01/29/2019 22:37 EDT ; Life Cycle Date: 01/29/2019 ; Life Cycle Status: Active ; Vocabulary: SNOMED CT Diagnoses(Active) Chest pain Date: 05/18/2019 ; Diagnosis Type: Reason For Visit ; Confirmation: Complaint of ; Clinical Dx: Chest pain ; Classification: Medical ; Clinical Service: Emergency medicine ; Code: PNED ; Probability: 0 ; Diagnosis Code: [id number] ED Height and Weight Height Source : Estimated Height Entry Format : [place] Height, Feet : 6 ft(Converted to: 183 cm, 72 Inch) Height, Inches : 2 Inch(Converted to: 0 ft 2 Inch, 5.08 cm) Clinical Height : 187.96 cm Weight Source, ED : Critical estimated dosing weight Weight Entry Format : [place] Weight, Pounds : 320 lb Clinical Dosing Weight : 145.45 kg Body Surface Area (BSA) : 2.66 m2 Body Mass Index : 41.2 kg/m2 (>HHI) [place] Body Weight (IBW) : 81.16 kg Shelby Jefferson RN - 05/18/2019 13:38 EST TELETYPESETTER MONITOR Medications and Interventions Treatments Prior to Arrival : Other: 20 G right AC; fsbs 346 Shelby Jefferson RN - 05/18/2019 13:38 EST Electronically signed by Rehan, [facility] Conversion Mass Spec Cerner at 10/22/2022 11:22 PM CDT documented in this encounter Plan of Treatment Not on file documented as of this encounter Visit Diagnoses Not on filedocumented in this encounter
--- OUTSIDE RECORDS SUMMARY | 2025-03-02 09:51 | XMS_ITS | Referral Summary ---
Author Organization [employer] [facility] ([place], [place], [place], [place]) Address [address] [place] [address] Care Team Providers Care Program Clerk Name Role Phone Unavailable Primary Care [...]
--- OUTSIDE RECORDS SUMMARY | 2025-03-02 09:51 | XMS_ITS | Encounter Summary ---
Author Organization [facility] Address [address] [place] [address] Care Team Providers Care Patch Finisher Name Role Phone Addison Rizzo DO Primary Care Provider [phone] Pcp, No Primary Care Provider Unavailabl e dAdison Rizzo DO Unavailable [phone] Brooklyn Redmond LPN Unavailable Unavailable Encounter Details Date Type Department Care Team (Late st Contact Info) Description 06/12/2024 Lab Requisition [facility] [address] [place] [address] Julien Matthews [address] [place] [address] Encounter for general adult medical [...] slept in a retirement (including now)? No 04/26/2024 PHQ-9 Answer Date [...] any time in the past 12 [facility], were you homeless or living in a retirement (including now)? No 06/14/2024 CAGE ASSESSMENT Answer [...] drink first t alyx in the morning (EYE-AIRPLANE TUBE BUILDER) to steady your nerves or to get rid of a hangover? 0 09/05/2023 CAGE Questionnaire Score 0 024 Utilities Answer Date Recorded In the past 12 months has Sp[employer], [employer], oil, or water [employer] threatened to shut off services in your [...] LAB HEMATOLOGY METHOD 06/14/2024 5:35 PM EST [facility] Specimen Source, Body Fluid Synovial Fluid (type in source) LAB HEMATOLOGY METHOD 06/14/2024 5:35 PM EST [facility] Clinical Diagnosis, Body Fluid Pyogenic arthritis of left knee joint LAB HEMATOLOGY METHOD 06/14/2024 5:35 PM EST [facility] Interpretation , Body Fluid Acute inflammatory cells No pathogenic organisms seen Correlation with microbiology studies recommended Moderate blood A resident was involved in the service. I attest I examined the relevant preparations for the specimens and confirmed the diagnosis or interpretation. 06/14/2024 5:35 PM EST [facility] Pathologist Signature, Body Fluid 06/14/2024 5:35 PM EST [facility] Comment:Reviewed by: Salome thakur MD LAB CP ASR DISCLAIMER Yes 06/14/2024 5:35 PM EST [facility] Joint Fluid Synovial structure / Unknown 06/12/2024 5:00 PM EST 06/13/2024 5:02 AM EST Julien Matthews LAB BODY FLUIDS AND STOOLS ORDER VANESSA Final Result [facility] [address] [place] [address] * (ABNORMAL) Body Fluid Cell Count w/ Diff (06/12/2024 5:00 PM EST) Color, Body fluid Yellow LAB HEMATOLOGY METHOD 06/13/2024 8:26 AM EST [facility] Appearance, Body fluid Cloudy(A) LAB HEMATOLOGY METHOD 06/13/2024 8:26 AM EST [facility] Volume, Body fluid 4.0 cc LAB HEMATOLOGY METHOD 06/13/2024 8:26 AM EST [facility] Fluid Container Specimen received in miscellaneous container LAB HEMATOLOGY METHOD 06/13/2024 8:26 AM EST [facility] Red Blood Cell Count, Body fluid 10,000 uL LAB HEMATOLOGY METHOD 06/13/2024 8:26 AM EST [facility] Total Nucleated Cell Count, Body fluid >100,000 uL LAB HEMATOLOGY METHOD 06/13/2024 8:26 AM [facility] Neutrophils %, Body fluid 90 % LAB HEMATOLOGY METHOD 06/13/2024 8:26 AM [facility] Lymphocytes %, Body fluid 3 % LAB HEMATOLOGY METHOD 06/13/2024 8:26 AM [facility] Monocytes/Macr ophages %, Body fluid 7 % LAB HEMATOLOGY METHOD 06/13/2024 8:26 AM EST [facility] Eosinophils %, Body fluid 0 % LAB HEMATOLOGY METHOD 06/13/2024 8:26 AM [facility] Lining/Mesothe lial Cells %, Body fluid 0 % LAB HEMATOLOGY METHOD 06/13/2024 8:26 AM [facility] Neutrophils Absolute (PMN), Body fluid >90,000 uL LAB HEMATOLOGY METHOD 06/13/2024 8:26 AM EST [facility] Lymphocytes Absolute, Body fluid >3,000 uL LAB HEMATOLOGY METHOD 06/13/2024 8:26 AM [facility] Monocytes/Macr ophages Absolute, Body fluid >7,000 uL LAB HEMATOLOGY METHOD 06/13/2024 8:26 AM [facility] Eosinophils Absolute, Body fluid 0 uL LAB HEMATOLOGY METHOD 06/13/2024 8:26 AM [facility] Basophils Absolute, Body fluid 0 uL LAB HEMATOLOGY METHOD 06/13/2024 8:26 AM [facility] Lining/Mesothe lial Cells Absolute, Body fluid 0 uL LAB HEMATOLOGY METHOD 06/13/2024 8:26 AM [facility] Basophils %, Body fluid 0 % LAB HEMATOLOGY METHOD 06/13/2024 8:26 AM [facility] Joint Fluid Synovial structure / Unknown 06/12/2024 5:00 PM EST 06/13/2024 5:02 AM EST Julien Matthews LAB BODY FLUIDS AND STOOLS ORDERABLES NO SPECIMEN TYPE/SOURCE Final Result [facility] [address] [place] [address] * (ABNORMAL) Body Fluid Cell Count W/O Diff (06/12/2024 5:00 PM EST) Specimen Source, Body Fluid Synovial Fluid (type in source) 06/12/2024 8:21 PM EST [facility] Specimen Type Joint Fluid 06/12/2024 8:21 PM EST [facility] Color, Body fluid Yellow LAB HEMATOLOGY METHOD 06/12/2024 8:21 PM EST [facility] Appearance, Body fluid Cloudy(A) LAB HEMATOLOGY METHOD 06/12/2024 8:21 PM EST [facility] Volume, Body fluid 4.0 cc LAB HEMATOLOGY METHOD 06/12/2024 8:21 PM EST [facility] Red Blood Cell Count, Body fluid 10,000 uL LAB HEMATOLOGY METHOD 06/12/2024 8:21 PM EST [facility] Total Nucleated Cell Count, Body fluid >100,000 uL LAB HEMATOLOGY METHOD 06/12/2024 8:21 PM EST [facility] Fluid Container Specimen received in miscellaneous container LAB HEMATOLOGY METHOD 06/12/2024 8:21 PM EST [facility] Joint Fluid Synovial structure / Unknown 06/12/2024 5:00 PM EST 06/12/2024 7:43 PM EST Julien Matthews LAB BODY FLUIDS AND STOOLS ORDER VANESSA Final Result Performing Organization Address City/[facility]/ZIP Co de Phone Number [facility] [address] [place] [address] * Joint Fluid Crystals (06/12/2024 5:00 PM EST) Crystals, Joint Fluid No Crystals Seen No Crystals Present 06/12/2024 11:03 PM EST [facility] Joint Fluid 06/12/2024 5:00 PM EST 06/12/2024 7:43 PM EST us Julien Matthews LAB BODY FLUIDS AND STOOLS ORDER VANESSA Final Result Performing Organization Address City/[facility]/ZIP Co de Phone Number [facility] [address] [place] [address] documented in this encounter Visit Diagnoses Diagnosis [...] documented as of this encounter Care Teams Patch Finisher Relationship Specialty Start Date End Date Addison Rizzo DO [address] [place] [address] PCP - General 04/26/24 06/23/24 [place] [address] PCP - General Family Medicine 06/24/24 Addison Rizzo DO [address] [place] [address] 06/24/24 Brooklyn Redmond LPN VALUE-[employer]ED [place] [address] TCM Nurse 06/23/24 07/23/24 documented as of this encounter
--- OUTSIDE RECORDS SUMMARY | 2025-03-02 09:51 | XMS_ITS | Encounter Summary ---
Author Organization Healthcare Address [address] [place] [address] Care Team Providers Care Gun Mechanic Name Role Phone Bridgette Szymanski DO Primary Care Provider Elaina Carvalho Primary Care Provider Addison Rizzo DO Primary Care Provider Pcp, No Primary Care Provider Unavailabl e Addison Rizzo DO Unavailable [phone] Brooklyn Redmond LPN Unavailable Unavailable Encounter Details Date Type Department Care Team (Late st Contact Info) Description 05/06/2023 Lab Requisition [facility] Lab [address] [place] [address] Estefania Keller MD [address] [place] [address] Unspecified general medical examination Social [...] the past 12 months has th e [employer], gas, oil, or water [employer] threatened to shut off services in your [...] Not Detected . 05/08/2023 5:06 AM EDT [facility] Hepatitis C Virus (HCV) Quantitative Viral Load Log Result <1.08 <1.08 log10 IU/mL 05/08/2023 5:06 AM EDT [facility] Hepatitis C Virus (HCV) Quantitative IU/mL Result <12 <12 IU/mL 05/08/2023 5:06 AM EDT [facility] Blood Venous blood specimen [...] Re sult Performing Organization Address [facility] de Phone Number [facility] [address] [place] [address] * Source, BBFE Hepatitis B S AG (05/06/2023 11:10 AM EDT) Pathologist [facility] Hepatitis B Surf Antigen Negative Negative 05/06/2023 12:44 PM EDT [facility] Blood Venous blood specimen / Unknown 05/06/2023 11:10 AM EDT 05/06/2023 11:38 AM EDT Estefania Keller MD LAB BLOOD ORDERABLES Final Re sult Performing Organization Address [facility] Phone Number [facility] [address] [place] [address] * Source, BBFE HIV AB/AG w/Reflex to HIV1/2 Antibody Differentiation (05/06/2023 11:10 AM EDT) [facility] HIV 1 & 2 Antibody/Anti gen Screen Non Reactive Non Reactive 05/06/2023 12:44 PM EDT [facility] Blood Venous blood specimen / Unknown 05/06/2023 11:10 AM EDT 05/06/2023 11:38 AM EDT Estefania Keller MD LAB BLOOD ORDERABLES Final Re sult Performing Organization Address [facility] de Phone Number [facility] [address] [place] [address] documented in this encounter Visit Diagnoses Diagnosis [...] documented as of this encounter Care Teams Gun Mechanic Relationship Specialty Start Date End Date Bridgette Szymanski DO [address] [place] [address] PCP - General 11/17/20 05/07/23 Elaina Carvalho PA [address] [place] [address] PCP - General 05/08/23 04/25/24 Addison Rizzo DO [address] [place] [address] PCP - General 04/26/24 06/23/24 Pcp, [place] [address] PCP - General Family Medicine 06/24/24 Addison Rizzo DO [address] [place] [address] 06/24/24 Brooklyn Redmond LPN VALUE-[employer]ED [place] [address] TCM Nurse 06/23/24 07/23/24 documented as of this encounter
--- OUTSIDE RECORDS SUMMARY | 2025-03-02 09:51 | XMS_ITS | Encounter Summary ---
Author Organization [employer] ([place], [place], [place], [place]) Address [address] [place] [address] Care Team Providers Care Residential Green Building Designer Name Role Phone Unavailable Primary Care Provider Unavailabl e Encounter Details Date Type Department Care Team (Late st Contact Info) Description 05/18/2019 Transcribed Document [facility] [place] Medicine [address] [place] [address] ProviderEmilia MD [address] [place], [place] [address] Social History Tobacco Use Types Packs/Day Years Used Date Smoking Tobacco: Never Assessed Sex and Gender Information Value Date Recorded Sex Assigned at Not on file Legal Sex Male 5:19 PM CDT Gender Identity Not on file Sexual Orientation Not on file documented as of this encounter Miscellaneous Notes * [employer]ner Conversion Note - Historical ProviderMD - 05/18/2019 1:36 PM PERMIT SPECIALIST [place] Suicide Severity Rating Scale (C-SSRS) Entered On: 05/18/2019 14:44 EST Performed On: 05/18/2019 14:42 EST by ERICA MONROY RN [place] Suicide Severity Rating Scale (C-SSRS) CSSRS Past [...]
--- OUTSIDE RECORDS SUMMARY | 2025-03-02 09:51 | XMS_ITS | Clinical Summary ---
Author Organization [facility] Address [address] [place] [address] Care Team Providers Care Osd Clerk Name Role Phone Pcp, No Primary Care Provider Unavailabl e Addison Rizzo DO Unavailable [phone] Allergies Active Allergy Reactions Criticality Noted [...] if needed for pain. Active HYDROcodone-aceta minophen (Charlotte) 5-325 MG tablet Take 1 tablet (5 [...] (08/22/2021): Added automatically from request for surgery [id number] Calculus of gallbladder and bile duct 12/27/2013 [...] place to sleep or slept in a custodial (including now)? No 04/26/2024 PHQ-9 Answer Date [...] any time in the past 12 m [facility], were you homeless or living in a custodial (including now)? No 06/25/2024 CAGE ASSESSMENT Answer [...] drink first t alyx in the morning (EYE-ELEVATOR RUNNER) to steady your nerves or to get rid of a hangover? 0 06/25/2024 CAGE Questionnaire Score 0 024 Utilities Answer Date Recorded In the past 12 months has th e [employer], gas, oil, or water [employer] threatened to shut off services in your [...] Done Comments [facility]-Medicare Annual Wellness (AWV) 1955 [facility]-Infant/Child/Adol SDOH Screenings 1955 [id number]-TDDFT-39 Vaccine (#1) 1962 Diabetes: Dental Exam 1967 [...] this topic Medical Devices Implanted Type Area Oil Deliverer Device Identifier Shelf Expiration Date Model / Serial / Lot Embolic Trufill 1 Gm N Bca Liq - [id number] Implanted:Qty: 1 on 05/06/2023 by Abdoulaye James MD at [facility] [employer] [facility]-[id number] 08/06/2024 [id number] / / [id number] Vip Vascular Closure Device 6 Fr - [id number] Implanted:Qty: 1 on 05/06/2023 by Abdoulaye James MD at [facility] [id number] 12/12/2023 [id number] / / [id number] Puraply Am 6x9 54 Sq Cm - [id number] Implanted:Qty: 1 on 03/16/2024 by Syed Jefferson MD at [facility] [employer]-[id number] 01/03/2026 PURAPLYHereOrThere [id number] / / [id number]. 1C Procedures Procedure Name Priority Date/Time Associated Diagnosis Comments HEMOGLOBIN A1C Routine 06/25/2024 3:24 AM EST HEPATITIS C ANTIBODY - ED W/REFLEX TO HCV QUANT PCR STAT 06/24/2024 11:48 AM EST from Last 3 Months or Most Recently Relevant to Health Maintenance Results * Hemoglobin A1c (06/25/2024 3:24 AM EST) Hemoglobin A1c 4.8 <5.7 % 06/25/2024 3:52 AM EST [facility] Blood Venous blood specimen / Unknown Venipuncture / Unknown 06/25/2024 3:24 AM EST 06/25/2024 3:34 AM EST Narrative [facility] - 06/25/2024 3:52 AM EST HA1C Interpretive Data: Diagnosis of Diabetes: Diabetic > or = 6.5% Pre-diabetic 5.7 to 6.4% Non-diabetic < or = 5.6% Glycemic Targets for Type I and Type II Diabetics: Non- Adults <7.0% Adults <6.0% Children and Adolescents <7.5% Source: [place] Diabetes Association. Standards of medical care in diabetes,2017. Diabetes Care.2017:40 (suppl 1):S1-S135. HbA1c assay performed by an ion-exchange chromatography method that is certified traceable to the DCCT. Huang Hubbard MD LAB BLOOD ORDERABLES Final Re sult [facility] [address] [place] [address] * Hepatitis C Antibody - ED (06/24/2024 11:48 AM EST) Hepatitis C Antibody Negative Negative 06/24/2024 1:02 PM EST [facility] Blood Venous blood specimen / Unknown Venipuncture / Unknown 06/24/2024 11:48 AM EST 06/24/2024 12:16 PM EST us Craig MA LAB BLOOD ORDERABLES Final Res ult [facility] [address] [place] [address] from Last 3 Months or Most Recently [...] 11/05/2023 06/29/2024 C. difficile 07/05/2024 07/05/2024 Insurance [facility] MEDIC[facility] Advance Directives * Full Code [...] Patient has decision-making capacity? Yes Care Teams Osd Clerk Relationship Specialty Start Date End Date Pcp, No [address] [place] [address] PCP - General Family Medicine 06/24/24 Addison Rizzo DO [address] [place] [address] 06/24/24
--- OUTSIDE RECORDS SUMMARY | 2025-03-02 09:51 | XMS_ITS | Clinical Summary ---
Author Organization [facility] Address [address] [id number] Care Team Providers Care Toolmaker Helper Name Role Phone Kadie Chen MD Primary Care Provider [phone] Allergies Active Allergy Reactions Criticality Noted Date [...] (03/27/2017): Added automatically from request for surgery [id number] Family History Medical History Relation Name Comments [...] 08/2023, 05/05/2023 Medical Devices Implanted Type Area Web Site Administrator Device Identifier Shelf Expiration Date Model / Serial / Lot Linnea Obrien 1x6cm - [id number] Implanted:Qty: 1 on 06/24/2017 by Priyank Law MD at [facility] Implant Right: Carotid [employer] 10/28/2021 [id number] / / [id number] Procedures Procedure Name Priority Date/Time Associated Diagnosis Comments HEMOGLOBIN A1C Routine 2017 2:07 PM EST Stenosis of right carotid artery LIPID PANEL STAT 03/28/2017 7:38 AM EDT from Last 3 Months or Most Recently Relevant to Health Maintenance Results * (ABNORMAL) Hemoglobin A1c (2017 2:07 PM EST) Pathologist [facility] Hemoglobin A1C 7.50(H) 4.80 - 5.60 % 2017 2:47 PM EST LABORATORY Blood Venipuncture / Unknown 2017 2:07 PM EST 2017 2:21 PM EST Narrative LABORATORY - 2017 2:47 PM EST The [place] Diabetes Association recommends maintenance of Hemoglobin A1C at 7.0% or lower. Goals for Hemoglobin A1C reduction may need to be modified if hypoglycemia is a problem. us Elzbieta MA LAB BLOOD ORDERABLES Final R esult LABORATORY
[address] [place] [address], * (ABNORMAL) Lipid Panel (03/28/2017 7:38 AM EDT) Total Cholesterol 141 0 - 200 mg/dL 03/28/2017 8:20 AM EDT LABORATORY Triglycerides 170(H) 0 - 150 mg/dL 03/28/2017 8:20 AM EDT LABORATORY HDL Cholesterol 27(L) 40 - 60 mg/dL 03/28/2017 8:20 AM EDT LABORATORY LDL Cholesterol 104 0 - 130 mg/dL 03/28/2017 8:20 AM EDT LABORATORY Blood Line / Unknown 03/28/2017 7: 38 AM EDT 03/28/2017 7:57 AM EDT [facility] LABORATORY - 03/28/2017 8:20 AM EDT [...] Rebolledo APRN LAB BLOOD ORDERABLES Final Result LABORATORY
[address] [place] [address], from Last 3 Months or Most Recently Relevant to Health Maintenance Insurance [employer]IC[employer]AGE Advance Directives * Full Code (Latest Code Status on File) Date Activated Date Inactivated Comments 06/24/2017 12:16 PM 06/25/2017 2:32 PM Care Teams Toolmaker Helper Relationship Specialty Start Date End Date Kadie Chen MD PCP - General Family Medicine 03/28/17
--- OUTSIDE RECORDS SUMMARY | 2025-03-02 09:51 | XMS_ITS | Encounter Summary ---
Author Organization [employer] ([place], [place], [place], [place]) Address [address] [place] [address] Care Team Providers Care Manager Line Name Role Phone Unavailable Primary Care Provider Annie raya Encounter Details Date Type Department Care Team (Late st Contact Info) Description 01/29/2019 Transcribed Document [facility] [place] [facility] [place] [address] ProviderEmilia MD [address] [place], [place] [id number] Social History Tobacco Use Types Packs/Day Years [...] On: 02/01/2019 10:16 EDT by Lesvia Warner Public Works Inspector Nutrition Assessment Nutrition Assessment Reason : Automatic referral Lesvia Warner Public Works Inspector - 02/01/2019 10:10 EDT Nutrition Recommendations Dietitian [...] Level : No nutritional risk Lesvia Warner, Public Works Inspector - 02/01/2019 10:16 EDT Electronically signed by [facility], [facility] Conversion Range Ecologist Cerner at 10/22/2022 11:01 PM CDT documented in this encounter Plan of Treatment Not on file documented as of this encounter Visit Diagnoses Not on filedocumented in this encounter
--- OUTSIDE RECORDS SUMMARY | 2025-03-02 09:51 | XMS_ITS | Clinical Summary ---
Author Organization [facility] ([place], [place], [place], [place]) Address [address] [place] [address] Care Team Providers Care Roller Skate Assembler Name Role Phone Unavailable Primary Care [...]
--- OUTSIDE RECORDS SUMMARY | 2025-03-02 09:51 | XMS_ITS | Encounter Summary ---
Author Organization [facility] ([place], [place], [place], [place]) Address [address] [place] [address] Care Team Providers Care Car Filler Name Role Phone Unavailable Primary Care Provider Unavailabl e Encounter Details Date Type Department Care Team (Late st Contact Info) Description 05/18/2019 Transcribed Document [facility] [place] [facility] [place] [address] ProviderEmilia MD [address] [place], [place] [id number] Social History Tobacco Use Types Packs/Day Years Used Date Smoking Tobacco: Never Assessed Sex and Gender Information Value Date Recorded Sex Assigned at Not on file Legal Sex Male 5:19 PM CDT Gender Identity Not on file Sexual Orientation Not on file documented as of this encounter Miscellaneous Notes * Cerner Conversion Note - Historical ProviderMD - 05/18/2019 6:13 PM ASSEMBLER MECHANICAL ORDNANCE Electronically signed by Rehan, [facility] Conversion Java Golden Gate Developer Cerner at 10/22/2022 11:11 PM CDT documented in this encounter Plan of Treatment Not on file documented as of this encounter Visit Diagnoses Not on filedocumented in this encounter
--- OUTSIDE RECORDS SUMMARY | 2025-03-02 09:51 | XMS_ITS | Encounter Summary ---
Author Organization [employer] ([place], [place], [place], [place]) Address [address] [place] [address] Care Team Providers Care Inside Polisher Name Role Phone Unavailable Primary Care Provider Unavailabl e Encounter Details Date Type Department Care Team (Late st Contact Info) Description 05/18/2019 Transcribed Document [facility] Family Medicine [facility] [place] [address] ProviderEmilia MD [address] [place] [id number] Social History Tobacco Use Types Packs/Day Years Used Date Smoking Tobacco: Never Assessed Sex and Gender Information Value Date Recorded Sex Assigned at Not on file Legal Sex Male 5:19 PM CDT Gender Identity Not on file Sexual Orientation Not on file documented as of this encounter Miscellaneous Notes * Cerner Conversion Note - Historical ProviderMD - 05/18/2019 3:33 PM SOLAR MAINTENANCE TECHNICIAN Patient: JOHNATHAN PARHAM Age: 63 years Sex: [...] GRAFT in 2004 at 50 Years. CHOLECYSTECTOMY ([id number]). CATARACT REMOVAL INSERTION OF LENS ([id number]). Right knee replacement. Hernia Repair. Carotid Endardectomy.. [...] reflux disease) History of obstructive sleep apnea NOATAK (hard of hearing) Hypertension . Physical Examination [...] Normal ventricular rate is 64 bpm. pr [id number] ms. Normal QTC. Sinus rhythm with no [...] % 26.0 % Lymph # 1.41 x10(3)/uL [place] % 8.3 % [place] # 0.45 K/uL Eos % 2.8 % Eos # 0.15 x10(3)/uL Baso % 0.6 % Baso # 0.03 x10(3)/uL Slide Review No IG# 0.02 x10(3)/uL IG% 0.40 % PT 10.0 Second(s) INR 1.0 PTT 26.8 Second(s) . Radiology results: Radiology Results (Last 48 hours) [id number] -- 05/18/2019 13:36 CR Chest 1 Vw [...] He does need to follow-up with his service promoter salesperson in 24 hours. He is have any [...]
--- OUTSIDE RECORDS SUMMARY | 2025-03-02 09:51 | XMS_ITS | Encounter Summary ---
Author Organization [employer] ([place], [place], [place], [place]) Address [address] [place] [address] Care Team Providers Care Automatic Glove Former Name Role Phone Unavailable Primary Care Provider Unavailabl e Encounter Details Date Type Department Care Team (Late st Contact Info) Description 01/30/2019 Transcribed Document [facility] Cardiology [address] [place] [address] [place] [address] [place] [address] [address] [place] [address] Social History Tobacco Use Types Packs/Day Years [...] and diabetes mellitus type 2 presented to [facility] with complaints of progressive chest pain with associated palpitations shortness of air and cough via [facility]. He unerwent stress testing at [...] CKD (chronic kidney disease) / SNOMED CT 5585649993 / Confirmed Diabetes mellitus / SNOMED CT 631703198 / Confirmed GERD (gastroesophageal reflux disease) / SNOMED CT 634095677 / Confirmed [place] (hard of hearing) / SNOMED CT 28897657 / Confirmed History of obstructive sleep apnea / IMO 84261395 / Confirmed Hypertension / SNOMED CT 4916481541 / Confirmed Inactive: Arrhythmia / SNOMED CT 0502286707, Active Problems (6) CKD (chronic kidney disease) Diabetes mellitus GERD (gastroesophageal reflux disease) History of obstructive sleep apnea [place] (hard of hearing) Hypertension Histories No education [...] Procedure history: CORONARY ARTERY BYPASS GRAFT. CHOLECYSTECTOMY (98554). CATARACT REMOVAL INSERTION OF LENS (79442). Right knee replacement. Hernia Repair. Carotid Endardectomy. [...] (Current Encounter/Past 24 Hours) ProBNP 234 pg/mL [place] 01/29/2019 23:10 Blood Gases (Current Encounter/Past 24 [...] IV hydration DC [place] I Plan for [facility] once renal function stable. Consider nephrology evaluation documented in this encounter Plan of Treatment Not on file documented as of this encounter Visit Diagnoses Not on filedocumented in this encounter
--- OUTSIDE RECORDS SUMMARY | 2025-03-02 09:51 | XMS_ITS | Encounter Summary ---
Author Organization [employer] ([place], [place], [place], [place]) Address [address] [place] [address] Care Team Providers Care Cooker Soda Name Role Phone Unavailable Primary Care Provider Unavailabl e Encounter Details Date Type Department Care Team (Late st Contact Info) Description 01/29/2019 Transcribed Document [facility] [place] [facility] [place] [address] ProviderEmilia MD [address] [place], [place] [address] Social History Tobacco Use Types Packs/Day Years [...]
--- OUTSIDE RECORDS SUMMARY | 2025-03-02 09:52 | XMS_ITS | Encounter Summary ---
Author Organization [employer] ([place], [place], [place], [place]) Address [address] [place] [address] Care Team Providers Care Janitor Head Name Role Phone Unavailable Primary Care Provider Unavailabl e Encounter Details Date Type Department Care Team (Late st Contact Info) Description 01/30/2019 Transcribed Document [facility] Family Medicine [facility] [place] [address] ProviderEmilia MD [address] [place], [place] [address] Social History Tobacco Use Types Packs/Day Years [...] has been evaluated there and transferred to [facility]. Patient came in, blood work done shows [...]
--- OUTSIDE RECORDS SUMMARY | 2025-03-02 09:52 | XMS_ITS | Encounter Summary ---
Author Organization [employer] ([place], [place], [place], [place]) Address [address] [place] [address] Care Team Providers Care Automobile Body Worker Name Role Phone Unavailable Primary Care Provider Unavailabl e Encounter Details Date Type Department Care Team (Late st Contact Info) Description 01/31/2019 Transcribed Document [facility] Medicine [facility] [place] [address] ProviderEmilia MD [address] [place], [place] [address] Social History Tobacco Use Types Packs/Day Years [...] History of obstructive sleep apnea / IMO [id number] / Confirmed, Active Problems (6) CKD (chronic kidney disease) Diabetes mellitus GERD (gastroesophageal reflux disease) History of obstructive sleep apnea [place] (hard of hearing) Hypertension Objective VS/Measurements Vitals [...]
--- OUTSIDE RECORDS SUMMARY | 2025-03-02 09:52 | XMS_ITS | Encounter Summary ---
Author Organization [employer] ([place], [place], [place], [place]) Address [address] [place] [address] Care Team Providers Care Log Roller Name Role Phone Unavailable Primary Care Provider Unavailabl e Encounter Details Date Type Department Care Team (Late st Contact Info) Description 02/01/[address] [facility] [place] [facility] [place] [address] ProviderEmilia MD [address] [place], [place] [id number] Social History Tobacco Use Types Packs/Day Years Used Date Smoking Tobacco: Never Assessed Sex and Gender Information Value Date Recorded Sex Assigned at Not on file Legal Sex Male 5:19 PM CDT Gender Identity Not on file Sexual Orientation Not on file documented as of this encounter Miscellaneous Notes * [employer]ner Conversion Note - Historical ProviderMD - 02/01/2019 2:00 AM CDT Steam Boiler Fireman Details Entered On: 02/01/2019 4:35 EDT Performed [...]
--- OUTSIDE RECORDS SUMMARY | 2025-03-02 09:52 | XMS_ITS | Encounter Summary ---
Author Organization [employer] ([place], [place], [place], [place]) Address [address] [place] [address] Care Team Providers Care Alligator Shear Operator Name Role Phone Unavailable Primary Care Provider Unavailabl e Encounter Details Date Type Department Care Team (Late st Contact Info) Description 01/31/2019 Transcribed Document [facility] Cardiology [address] [place] [address] [place] [address] [place] [address] [address] [place] [address] Social History Tobacco Use Types Packs/Day Years [...] CKD (chronic kidney disease) / SNOMED CT 9921846076 / Confirmed Diabetes mellitus / SNOMED CT 827402599 / Confirmed GERD (gastroesophageal reflux disease) / SNOMED CT 779573675 / Confirmed [place] (hard of hearing) / SNOMED CT 74104082 / Confirmed History of obstructive sleep apnea / IMO 95452427 / Confirmed Hypertension / SNOMED CT 7316211079 / Confirmed, Active Problems (6) CKD (chronic kidney disease) Diabetes mellitus GERD (gastroesophageal reflux disease) History of obstructive sleep apnea [place] (hard of hearing) Hypertension Objective Intake and [...] 01/29/2019 23:10 Radiology Results (Last 48 hours) [id number] -- 01/29/2019 21:34 CR Chest 2 Vws [...] normal. a. Recent abnormal stress testing at [employer] [facility] 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 PLAN; 01/31/2019 Add amlodipine. If persitent HTN will increase Defer [place] I for now secondary to renal dysfunction Other Rx appropriate nephrology recs pending [facility] tomorrow if renal function stable. 01/30/2019 Continue aspirin/Plavix/rosuvastatin/coreg. Change home isosorbide dinitrate to him before 60 mg daily. Echocardiogram IV hydration DC [place] I Plan for [facility] once renal function stable. Consider nephrology evaluation documented in this encounter Plan of Treatment Not on file documented as of this encounter Visit Diagnoses Not on filedocumented in this encounter
--- OUTSIDE RECORDS SUMMARY | 2025-03-02 09:52 | XMS_ITS | Encounter Summary ---
Author Organization [employer] ([place], [place], [place], [place]) Address [address] [place] [address] Care Team Providers Care Appraiser Boats And Marine Name Role Phone Unavailable Primary Care Provider Unavailabl e Encounter Details Date Type Department Care Team (Late st Contact Info) Description 02/01/2019 Transcribed Document [facility] Cardiology [address] [place] [address] [place] [address] [place] [address] [address] [place] [address] Social History Tobacco Use Types [...] reflux disease) History of obstructive sleep apnea [place] (hard of hearing) Hypertension Objective Intake and [...] 24 Hours) Radiology Results (Last 48 hours) [id number] -- 01/29/2019 21:34 CR Chest 2 Vws [...] normal. a. Recent abnormal stress testing at [employer] [facility] 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 PLAN; 02/01/19 [facility] today unremarkable. Recommend tight BP control. NOthing further to add. Follow up with Dr Daily 2-3 weeks. Will sign off. 01/31/2019 Add amlodipine. If persitent HTN will increase Defer [place] I for now secondary to renal dysfunction Other Rx appropriate nephrology recs pending [facility] tomorrow if renal function stable. 01/30/2019 Continue aspirin/Plavix/rosuvastatin/coreg. Change home isosorbide dinitrate to him before 60 mg daily. Echocardiogram IV hydration DC [place] I Plan for [facility] once renal function stable. Consider nephrology evaluation documented in this encounter Plan of Treatment Not on file documented as of this encounter Visit Diagnoses Not on filedocumented in this encounter
--- OUTSIDE RECORDS SUMMARY | 2025-03-02 09:52 | XMS_ITS | Encounter Summary ---
Author Organization [employer] ([place], [place], [place], [place]) Address [address] [place] [address] Care Team Providers Care Laundry Marker Supervisor Name Role Phone Unavailable Primary Care Provider Unavailabl e Encounter Details Date Type Department Care Team (Late st Contact Info) Description 01/30/2019 Transcribed Document [facility] Family Medicine Counts include 234 beds at the [facility] [address] ProviderEmilia MD [address] [place], [place] [id number] Social History Tobacco Use Types Packs/Day Years Used Date Smoking Tobacco: Never Assessed Sex and Gender Information Value Date Recorded Sex Assigned at Not on file Legal Sex Male 5:19 PM CDT Gender Identity Not on file Sexual Orientation Not on file documented as of this encounter Miscellaneous Notes * Cerner Conversion Note - Historical ProviderMD - 01/30/2019 2:00 AM CDT Engraver Picture Details Entered On: 01/30/2019 2:21 EDT Performed [...] Ana Villeda Rn - 01/30/2019 2:21 EDT Electronically signed by Kiara Van Conversion Oil And Gas Well Treatment Operator Jose at 10/22/2022 11:10 PM CDT documented in this encounter Plan of Treatment Not on file documented as of this encounter Visit Diagnoses Not on filedocumented in this encounter
--- OUTSIDE RECORDS SUMMARY | 2025-03-02 09:52 | XMS_ITS | Encounter Summary ---
Author Organization [employer] ([place], [place], [place], [place]) Address [address] [place] [address] Care Team Providers Care Grinding Wheel Inspector Name Role Phone Unavailable Primary Care Provider Unavailabl e Encounter Details Date Type Department Care Team (Late st Contact Info) Description 02/01/2019 Transcribed Document [facility] [place] [address] [place] [address] ProviderEmilia MD [address] [place], [place] [address] Social History Tobacco Use Types Packs/Day Years [...] Spiritual Care Spiritual Care Referred by : Medical Biller Coder initiated Reason for Visit : Initial Ministry Provided to : Patient, Family/Significant other Intervention/Comment/Summary Points : 3 day visit with Johnathan and his . Scientology Preference : [facility] DANYEL NICHOLSON Chaplain - 02/01/2019 19:31 EDT documented in this encounter Plan of Treatment Not on file documented as of this encounter Visit Diagnoses Not on filedocumented in this encounter
--- OUTSIDE RECORDS SUMMARY | 2025-03-02 09:52 | XMS_ITS | Encounter Summary ---
Author Organization [employer] ([place], [place], [place], [place]) Address [address] [place] [address] Care Team Providers Care Radiological Metallurgist Name Role Phone Unavailable Primary Care Provider Unavailabl e Encounter Details Date Type Department Care Team (Late st Contact Info) Description 01/30/2019 Transcribed Document [facility] [place] [facility] [place] [address] ProviderEmilia MD [address] [place], [place] [phone] Social History Tobacco Use Types Packs/Day Years [...] Physician Requested for Consult : EDILBERTO MIRANDA MD-[facility] Provider Service Notified Name : Nephrology Physician Covering for Consult : CHRISTIANO FRANCIS MD Date and Time Call Returned : 01/30/2019 14:22 EDT Physician Returning Call : CHRISTIANO FRANCIS MD Ayubu, Sara, SWAN - 01/30/2019 14:22 EDT Electronically signed by Rehan [facility] Conversion Business Banking Representative Cerner at 10/22/2022 11:12 PM CDT documented in this encounter Plan of Treatment Not on file documented as of this encounter Visit Diagnoses Not on filedocumented in this encounter
--- OUTSIDE RECORDS SUMMARY | 2025-03-02 09:52 | XMS_ITS | Encounter Summary ---
Author Organization [employer] ([place], [place], [place], [place]) Address [address] [place] [address] Care Team Providers Care Senior Fire Protection Engineer Name Role Phone Unavailable Primary Care Provider Unavailabl e Encounter Details Date Type Department Care Team (Late st Contact Info) Description 02/01/2019 Transcribed Document [facility] [place] [facility] [place] [address] ProviderEmilia MD [address] [place], [place] [phone] Social History Tobacco Use Types Packs/Day Years [...]
--- OUTSIDE RECORDS SUMMARY | 2025-03-02 09:52 | XMS_ITS | Encounter Summary ---
Author Organization [employer] ([place], [place], [place], [place]) Address [address] [place] [address] Care Team Providers Care Counterperson Name Role Phone Unavailable Primary Care Provider Unavailabl e Encounter Details Date Type Department Care Team (Late st Contact Info) Description 02/02/[address] [facility] [place] Medicine [facility] [place] [address] ProviderEmilia MD [address] [place] [address] Social History Tobacco Use Types Packs/Day Years Used Date Smoking Tobacco: Never Assessed Sex and Gender Information Value Date Recorded Sex Assigned at Not on file Legal Sex Male 5:19 PM CDT Gender Identity Not on file Sexual Orientation Not on file documented as of this encounter Miscellaneous Notes * Cerner Conversion Note - Emilia ProviderMD - 02/02/2019 12:42 PM CDT [facility] [place] [address] JOANNA COURTNEY :1955 Visit Time:01/29/2019 Your Visit Summary Your Care Team Admitting Physician - FIONA PECK MD-INT Attending Physician - FIONA PECK MD-YON Primary Care Physician - JUDITH BOSTON MD-[facility] Referring Physician - FIONA PECK MD-INT Your Diagnosis Other specified abnormal findings of blood chemistry, Other specified abnormal findings of blood chemistry Weakness Discharge Vitals Temperature 36.4 ??C Heart Rate (Monitored) 97 Respiratory Rate 16 Blood Pressure 167/83 What to do next Instructions From Your Care Team [facility] Address: [address] [place] [address] [place] [address] Please STOP taking Lisinopril Follow-Up Appointments Follow Up with Rn Embedded When 02/04/2019 08:15 AM EDT Comments Appointment has been made with Chelsea MA. Please bring ID, insurance card and list of current medications. Where: [address] , [address] [place], [place] [phone] Follow Up with [facility] cardiac rehab When In 6 weeks [...] parent to child (inherited). ??? Are of -Chinese, , , , or descent. What are [...] by your health care provider. ??? Take lgxt-zhf-auvkjje and prescription medicines only as told by [...] 07/12/2008 Document Revised: 02/10/2018 Document Reviewed: 05/21/2017 [employer] Interactive Patient Education ?? 2019 [employer]. Chronic Kidney Disease, Adult Chronic kidney disease [...] these instructions at home: Medicines ??? Take eqmw-ypo-hrxexja and prescription medicines only as told by [...] 09/17/2010 Document Revised: 07/28/2017 Document Reviewed: 07/28/2017 [employer] Interactive Patient Education ?? 2019 [employer] Carbohydrate Counting for Diabetes Mellitus, Adult [...] for every person. A diet and nutrition tech (registered dietitian) can help you make a [...] of carbohydrates: ? hamburger bun or ?? Welsh muffin. ? oz (15 mL) syrup. ? [...] that contain carbohydrates: ??? Rice. ??? [place]. ??? Milk. ??? Strawberries. 2. Calculate how [...] your diabetes. ??? A diet and nutrition tech (registered dietitian) can help you make a meal plan and calculate how many carbohydrates you should have at each meal and snack. This information is not intended to replace advice given to you by your health care provider. Make sure you discuss any questions you have with your health care provider. Document Released: 2006 Document Revised: 12/31/2017 Document Reviewed: 12/04/2016 [employer] Interactive Patient Education ?? 2019 [employer] Diabetes Mellitus and Skin Care Diabetes [...] (acanthosis nigricans). This typically affects people of -Chinese and Chinese-Eritrean descent. ??? Red, raised, scar-like tissue that may itch, feel painful, or develop into a wound (necrobiosis lipoidica). ??? Blisters on feet, toes, hands, or fingers. ??? Thickened, wax-like areas of skin that usually occur on the hands, forehead, or toes (digital sclerosis). ??? Brown or red ring-shaped or nhym-erme-qbafuw patches of skin on the ears or [...] 12/03/2016 Document Revised: 01/01/2018 Document Reviewed: 12/03/2016 [employer] Interactive Patient Education ?? 2019 [employer] Diabetes Mellitus and Nutrition, Adult When [...] you work with a diet and nutrition tech (dietitian) to make a meal plan that [...] ??? Work with a counselor or clinical staff educator to identify strategies to manage stress and any emotional and social challenges. Questions to ask a health care provider ??? Do I need to meet with a clinical staff educator? Do I need to meet with a dietitian? What number can I call if I have questions? When are the best times to check my blood glucose? Where to find more information: ??? [place] Diabetes Association: diabetes.org ??? Academy of Nutrition and Dietetics: www.eatright.org ??? National [place] of Diabetes and Digestive and Kidney Diseases (NIH): www.niddk.nih.gov Summary ??? A healthy meal plan will help you control your blood glucose and maintain a healthy lifestyle. ??? Working with a diet and nutrition tech (dietitian) can help you make a meal [...] 03/20/2006 Document Revised: 01/21/2018 Document Reviewed: 07/28/2017 [employer] Interactive Patient Education ?? 2019 [employer]. Hypertension Hypertension is another name for high [...] doctor. This is important. Medicines ??? Take dxmx-nsk-vsaqutr and prescription medicines only as told by [...] 12/09/2008 Document Revised: 05/21/2017 Document Reviewed: 05/21/2017 [employer] Interactive Patient Education ?? 2019 [employer] Coronary Artery Disease, Male Coronary artery disease (CAD) is a condition in which the arteries that lead to the heart (coronary arteries) become narrow or blocked. The narrowing or blockage can lead to decreased blood flow to the heart. Prolonged reduced blood flow can cause a heart attack (myocardial infarction or FL). This condition may also be called coronary [...] these instructions at home: Medicines ??? Take skat-gdh-ohviamm and prescription medicines only as told by [...] 01/18/2015 Document Revised: 06/13/2017 Document Reviewed: 06/13/2017 [employer] Interactive Patient Education ?? 2019 [employer]. insulin isophane and insulin regular (IN horton [...] may report side effects to FDA at 1-561-ESG-4078. What other drugs will affect insulin isophane and insulin regular? This insulin may not work as well when you use other medicines at the same time. This includes prescription and qasg-nxw-uxftivb medicines, vitamins, and herbal products. Some drugs [...] to ensure that the information provided by [employer]. ('[employer]') is accurate, up-to-date, and complete, but no guarantee is made to that effect. Drug information contained herein may be time sensitive. [employer] information has been compiled for use by healthcare practitioners and consumers in the [place] and therefore [employer] does not warrant that uses outside of the [place] are appropriate, unless specifically indicated otherwise. [employer]'s drug information does not endorse drugs, diagnose patients or recommend therapy. [employer] drug information is an informational resource designed [...] effective or appropriate for any given patient. [facility] does not assume any responsibility for any aspect of healthcare administered with the aid of information [facility] provides. The information contained herein is not intended to cover all possible uses, directions, precautions, warnings, drug interactions, allergic reactions, or adverse effects. If you have questions about the drugs you are taking, check with your doctor, nurse or pharmacist. Copyright 5591-3012 [employer]. Version: 8.01. Revision Date: 03/11/2018.hydralazine (dmitry payton) [...] may report side effects to FDA at 9-053-KTP-0462. What other drugs will affect hydralazine? Tell your doctor about all your current medicines and any you start or stop using, especially: ? diazoxide (an injectable blood pressure medication); or ?? an MAO inhibitor--isocarboxazid, linezolid, methylene blue injection, phenelzine, rasagiline, selegiline, tranylcypromine, and others. This list is not complete. Other drugs may interact with hydralazine, including prescription and petm-prv-hjuyafr medicines, vitamins, and herbal products. Not all [...]
--- OUTSIDE RECORDS SUMMARY | 2025-03-02 09:52 | XMS_ITS | Encounter Summary ---
Author Organization [employer] ([place], [place], [place], [place]) Address [address] [place] [address] Care Team Providers Care Cost Reduction Engineer Name Role Phone Unavailable Primary Care Provider Unavailabl e Encounter Details Date Type Department Care Team (Late st Contact Info) Description 02/01/[address] [facility] [place] [facility] [place] [address] ProviderEmilia MD [address] [place], [place] [phone] Social History Tobacco Use Types Packs/Day Years [...] Numbers : Insurance 1 Health Plan: [employer] Policy Number: [id number] Authorization Number: Insurance Primary Name : [employer] Policy Number: [id number] Authorization Status-Primary : Awaiting callback Authorized Service Begin Date-Primary : 01/29/2019 EDT Authorization Comments-Primary : rec'd call from Roque/caleb this am re: does not meet IP, did we want to change to OBS or have it routed to medical case worker? Pt had heart cath planned for today, asked him to wait for outcome of C. Cath unremarkable per cards note, discussed case w/ DMc who requests leave as IP and have it routed to med director. Call back to Roque[facility] to request route to MD. Historical Authorization Comments-Primary : Comment 1: Received voice mail on main line from Doris hanson [facility] stating that pt OBS, not meeting for INPT and we need to send more clinical if we have any. # [phone] fx# [phone] Made Cayla De Jesus aware as she is following the patient today. (MALIHA DOSHI, Screener And Blender Operator 02/01/2019 13:11) Comment 2: Per [facility] notes Notify Payer of Admission - InProgress - faxed clinicals via [employer]. (MIRYAM KOTHARI RN 01/30/2019 13:46) CAYLA CHAU, RN-Utilization Review - 02/01/2019 14:35 EDT documented in this encounter Plan of Treatment Not on file documented as of this encounter Visit Diagnoses Not on filedocumented in this encounter
--- OUTSIDE RECORDS SUMMARY | 2025-03-02 09:52 | XMS_ITS | Encounter Summary ---
Author Organization [employer] ([place], [place], [place], [place]) Address [address] [place] [address] Care Team Providers Care Follow Up Specialist Name Role Phone Unavailable Primary Care Provider Unavailabl e Encounter Details Date Type Department Care Team (Late st Contact Info) Description 02/01/2019 Transcribed Document [facility] [place] [facility] [place] [address] ProviderEmilia MD [address] [place] [id number] Social History Tobacco Use Types Packs/Day Years [...] 76 mg/dL 01/31/2019 14:02 EDT Protein Ur [place] 14 mg/dL 01/31/2019 14:02 EDT WBC 5.9 [...] Lymph # 1.47 x10(3)/uL 02/01/2019 05:17 EDT [place] % 7.9 % 02/01/2019 05:17 EDT [place] # 0.47 K/uL 02/01/2019 05:17 EDT Eos [...]
--- OUTSIDE RECORDS SUMMARY | 2025-03-02 09:52 | XMS_ITS | Encounter Summary ---
Author Organization [employer] ([place], [place], [place], [place]) Address [address] [place] [address] Care Team Providers Care Prorate Clerk Name Role Phone Unavailable Primary Care Provider Unavailabl e Encounter Details Date Type Department Care Team (Late st Contact Info) Description 02/01/2019 Transcribed Document [facility] [place] Family Medicine [place] [address] ProviderEmilia MD [address] [place], [place] [phone] Social History Tobacco Use Types Packs/Day Years [...]
--- OUTSIDE RECORDS SUMMARY | 2025-03-02 09:52 | XMS_ITS | Encounter Summary ---
Author Organization [employer] ([place], [place], [place], [place]) Address [address] [place] [address] Care Team Providers Care Business Unit Controller Name Role Phone Unavailable Primary Care Provider Unavailabl e Encounter Details Date Type Department Care Team (Late st Contact Info) Description 01/30/2019 Transcribed Document [facility] [place] [address] [place] [address] ProviderEmilia MD [address] [place], [place] [id number] Social History Tobacco Use Types Packs/Day Years [...]
--- OUTSIDE RECORDS SUMMARY | 2025-03-02 09:52 | XMS_ITS | Encounter Summary ---
Author Organization [employer] ([place], [place], [place], [place]) Address [address] [place] [address] Care Team Providers Care Agricultural Research Engineer Name Role Phone Unavailable Primary Care Provider Unavailabl e Encounter Details Date Type Department Care Team (Late st Contact Info) Description 02/01/2019 Transcribed Document [facility] [place] Family [place] [facility] [address] ProviderEmilia MD [address] [place], [place] [phone] Social History Tobacco Use Types Packs/Day Years [...] History of obstructive sleep apnea / IMO [id number] / Confirmed, Active Problems (6) CKD (chronic kidney disease) Diabetes mellitus GERD (gastroesophageal reflux disease) History of obstructive sleep apnea [place] (hard of hearing) Hypertension Objective VS/Measurements Vitals [...]
--- OUTSIDE RECORDS SUMMARY | 2025-03-02 09:52 | XMS_ITS | Encounter Summary ---
Author Organization [employer] ([place], [place], [place], [place]) Address [address] [place] [address] Care Team Providers Care Pot Annealer Name Role Phone Unavailable Primary Care Provider Unavailabl e Encounter Details Date Type Department Care Team (Late st Contact Info) Description 02/02/2019 Transcribed Document [facility] [place] [address] [place] [address] ProviderEmilia MD [address] [place], [place] [phone] Social History Tobacco Use Types Packs/Day Years [...]
--- OUTSIDE RECORDS SUMMARY | 2025-03-02 09:52 | XMS_ITS | Encounter Summary ---
Author Organization [employer] ([place], [place], [place], [place]) Address [address] [place] [address] Care Team Providers Care Sail Maker Name Role Phone Unavailable Primary Care Provider Unavailabl e Encounter Details Date Type Department Care Team (Late st Contact Info) Description 01/30/2019 Transcribed Document [facility] [place] Family Medicine [address] [place] [address] ProviderEmilia MD [address] [place], [place] [phone] Social History Tobacco Use Types Packs/Day Years [...]
--- OUTSIDE RECORDS SUMMARY | 2025-03-02 09:52 | XMS_ITS | Encounter Summary ---
Author Organization [employer] ([place], [place], [place], [place]) Address [address] [place] [address] Care Team Providers Care Service Electrician Name Role Phone Unavailable Primary Care Provider Unavailabl e Encounter Details Date Type Department Care Team (Late st Contact Info) Description 02/01/2019 Transcribed Document [facility] [place] Family Medicine [address] [place] [address] ProviderEmilia MD [address] [place], [place] [phone] Social History Tobacco Use Types Packs/Day Years [...]
--- OUTSIDE RECORDS SUMMARY | 2025-03-02 09:52 | XMS_ITS | Encounter Summary ---
Author Organization [employer] ([place], [place], [place], [place]) Address [address] [place] [address] Care Team Providers Care Drafting Technician Name Role Phone Unavailable Primary Care Provider Unavailabl e Encounter Details Date Type Department Care Team (Late st Contact Info) Description 01/30/2019 Transcribed Document [facility] [place] [facility] [address] ProviderEmilia MD [address] [place], [place] [id number] Social History Tobacco Use Types Packs/Day Years [...] History of obstructive sleep apnea / IMO [id number] / Confirmed, Active Problems (6) CKD (chronic kidney disease) Diabetes mellitus GERD (gastroesophageal reflux disease) History of obstructive sleep apnea [place] (hard of hearing) Hypertension Objective VS/Measurements Vitals [...]
--- OUTSIDE RECORDS SUMMARY | 2025-03-02 09:52 | XMS_ITS | Encounter Summary ---
Author Organization [employer] ([place], [place], [place], [place]) Address [address] [place] [address] Care Team Providers Care Field Test Engineer Name Role Phone Unavailable Primary Care Provider Unavailabl e Encounter Details Date Type Department Care Team (Late st Contact Info) Description 02/01/2019 Transcribed Document [facility] [place] [address] MD [address] [place], [place] 220281 Social History Tobacco Use Types Packs/Day Years [...] Morbid obesity. DISCHARGE INSTRUCTIONS: Diet: According to [employer]. Activities: As tolerated. Followup appointment [...] chronic kidney disease, has been followed by automation specialist. Recommended patient to follow up as outpatient [...]
--- OUTSIDE RECORDS SUMMARY | 2025-03-02 09:52 | XMS_ITS | Encounter Summary ---
Author Organization [employer] ([place], [place], [place], [place]) Address [address] [place] [address] Care Team Providers Care Tare Weigher Name Role Phone Unavailable Primary Care Provider Unavailabl e Encounter Details Date Type Department Care Team (Late st Contact Info) Description 02/02/2019 Transcribed Document [facility] [facility] [place] [facility] [place] [address] ProviderEmilia MD [address] [place] [id number] Social History Tobacco Use Types Packs/Day Years [...] # 0.70 x10(3)/uL (Low) 02/02/2019 03:25 EDT [place] % 4.3 % 02/02/2019 03:25 EDT [place] # 0.35 K/uL 02/02/2019 03:25 EDT Eos [...]
--- OUTSIDE RECORDS SUMMARY | 2025-03-02 09:52 | XMS_ITS | Encounter Summary ---
Author Organization [employer] ([place], [place], [place], [place]) Address [address] [place] [address] Care Team Providers Care Community Living Specialist Name Role Phone Unavailable Primary Care Provider Unavailabl e Encounter Details Date Type Department Care Team (Late st Contact Info) Description 01/30/2019 Transcribed Document [facility] [place] Family Medicine [facility] [place] [address] ProviderEmilia MD [address] [place], [place] [phone] Social History Tobacco Use Types Packs/Day Years [...] Numbers : Insurance 1 Health Plan: HUMANA [place] Policy Number: [id number] Authorization Number: Insurance Primary Name : import2A [place] Policy Number: [id number] Authorization Status-Primary : Awaiting callback Authorized Service [...]
--- OUTSIDE RECORDS SUMMARY | 2025-03-02 09:52 | XMS_ITS | Encounter Summary ---
Author Organization [employer] ([place], [place], [place], [place]) Address [address] [place] [address] Care Team Providers Care Metallurgy Laboratory Technician Name Role Phone Unavailable Primary Care Provider Unavailabl e Encounter Details Date Type Department Care Team (Late st Contact Info) Description 01/31/2019 Transcribed Document [facility] [place] [address] [place] [address] ProviderEmilia MD [address] [place], [place] [phone] Social History Tobacco Use Types Packs/Day Years [...]
--- OUTSIDE RECORDS SUMMARY | 2025-03-02 09:52 | XMS_ITS | Encounter Summary ---
Author Organization [employer] ([place], [place], [place], [place]) Address [address] [place] [address] Care Team Providers Care Livestock Producer Name Role Phone Unavailable Primary Care Provider Unavailabl e Encounter Details Date Type Department Care Team (Late st Contact Info) Description 02/01/2019 Transcribed Document [facility] [place] Family Medicine [facility] [place] [address] ProviderEmilia MD [address] [place], [place] [phone] Social History Tobacco Use Types Packs/Day Years [...] On: 02/01/2019 13:11 EDT by MALIHA DOSHI, Hydroelectric Station Operator Primary Insurance Authorization Authorization and Policy Numbers : Insurance 1 Health Plan: [employer] Policy Number: [id number] Authorization Number: Insurance Primary Name : [employer] Policy Number: [id number] Authorization Status-Primary : Awaiting callback Authorized Service Begin Date-Primary : 01/29/2019 EDT Authorization Comments-Primary : Received voice mail on main line from Doris hanson [facility] stating that pt OBS, not meeting for INPT and we need to send more clinical if we have any. ph# [phone] fx# [phone] Made Cayla De Jesus aware as she is following the patient today. Historical Authorization Comments-Primary : Comment 1: Per Star notes Notify Payer of Admission - InProgress - faxed clinicals via cerner. (MIRYAM KOTHARI RN 01/30/2019 13:46) MALIHA DOSHI, Hydroelectric Station Operator - 02/01/2019 13:11 EDT documented in this encounter Plan of Treatment Not on file documented as of this encounter Visit Diagnoses Not on filedocumented in this encounter
--- OUTSIDE RECORDS SUMMARY | 2025-03-02 09:52 | XMS_ITS | Encounter Summary ---
Author Organization [facility] ([place], [place], [place], [place]) Address [address] [place] [address] Care Team Providers Care Hydroelectric Powerplant Supervisor Name Role Phone Unavailable Primary Care Provider Unavailabl e Encounter Details Date Type Department Care Team (Late st Contact Info) Description 01/31/2019 Transcribed Document [facility] [place] [facility] [place] [address] ProviderEmilia MD [address] [place], [place] 9[address]261 Social History Tobacco Use Types Packs/Day Years [...] and diabetes mellitus type 2 presented to [facility] with complaints of progressive chest pain with associated palpitations shortness of air and cough via [facility]. He underwent stress testing at [...] patient is in bed, Continuous Order (KASSANDRA DVAIS) Provider Information Primary Care Physician - RHONDA [...] reflux disease) History of obstructive sleep apnea [place] (hard of hearing) Hypertension Historical No qualifying [...] Lymph # 1.76 x10(3)/uL 01/31/2019 04:16 EDT [place] % 7.4 % 01/31/2019 04:16 EDT [place] # 0.45 K/uL 01/31/2019 04:16 EDT Eos [...]
--- OUTSIDE RECORDS SUMMARY | 2025-03-02 09:52 | XMS_ITS | Encounter Summary ---
Author Organization [employer] ([place], [place], [place], [place]) Address [address] [place] [address] Care Team Providers Care Pig Iron Loader Name Role Phone Unavailable Primary Care Provider Unavailabl e Encounter Details Date Type Department Care Team (Late st Contact Info) Description 01/31/2019 Transcribed Document [facility] [place] Medicine [facility] [place] [address] ProviderEmilia MD [address] [place], [place] [phone] Social History Tobacco Use Types Packs/Day Years Used Date Smoking Tobacco: Never Assessed Sex and Gender Information Value Date Recorded Sex Assigned at Not on file Legal Sex Male 5:19 PM CDT Gender Identity Not on file Sexual Orientation Not on file documented as of this encounter Miscellaneous Notes * Cerner Conversion Note - Historical ProviderMD - 01/31/2019 2:00 AM CDT Wire Spinner Details Entered On: 01/31/2019 2:33 EDT Performed [...]
--- OUTSIDE RECORDS SUMMARY | 2025-03-02 09:52 | XMS_ITS | Encounter Summary ---
Author Organization [employer] ([place], [place], [place], [place]) Address [address] [place] [address] Care Team Providers Care Business Systems Architect Name Role Phone Unavailable Primary Care Provider Unavailabl e Encounter Details Date Type Department Care Team (Late st Contact Info) Description 02/02/2019 Transcribed Document [facility] [place] [address] ProviderEmilia MD [address] [place], [place] [address]261 Social History Tobacco Use Types Packs/Day Years [...] On: 02/02/2019 12:04 EDT by ANNETTE ENCARNACION RN-Flight Attendant/Inflight Manager Final Discharge Planning Discharge Arrangements : Patient [...] : Yes Discharge To Care Management : Home/Residential/Snf or Self Care -01 ANNETTE ENCARNACION, RN-Flight Attendant/Inflight Manager - 02/02/2019 12:04 EDT Final Narrative Note Final Narrative Note : pt discharge home with . appointment with distillery manager made on 02/04 at 0815, with ANIL Lopez. [address]. pt for dc with 70/30 insulin and [place] to f/u with pt's home rgiment of humalin and assistance with supplies and affordability. ANNETTE ENCARNACION, TONIO-Flight Attendant/Inflight Manager - 02/02/2019 12:04 EDT Electronically signed by Kiara Van Conversion Communication Signals Intelligence Cerner at 10/22/2022 11:03 PM CDT documented in this encounter Plan of Treatment Not on file documented as of this encounter Visit Diagnoses Not on filedocumented in this encounter
--- OUTSIDE RECORDS SUMMARY | 2025-03-02 09:53 | XMS_ITS | Encounter Summary ---
Author Organization [employer] ([place], [place], [place], [place]) Address [address] [place] [address] Care Team Providers Care Purchasing Analyst Name Role Phone Unavailable Primary Care Provider Unavailabl e Encounter Details Date Type Department Care Team (Late st Contact Info) Description 02/02/2019 Transcribed Document [facility] [place] [facility] [place] [address] ProviderEmilia MD [address] [place], [place] [phone] Social History Tobacco Use Types Packs/Day Years [...]
--- OUTSIDE RECORDS SUMMARY | 2025-03-02 09:53 | XMS_ITS | Encounter Summary ---
Author Organization [employer] ([place], [place], [place], [place]) Address [address] [place] [address] Care Team Providers Care Rn Navigator Name Role Phone Unavailable Primary Care Provider Unavailabl e Encounter Details Date Type Department Care Team (Late st Contact Info) Description 02/02/2019 Transcribed Document [facility] [place] [facility] [place] [address] ProviderEmilia MD [address] [place], [place] [phone] Social History Tobacco Use Types Packs/Day Years [...]
--- OUTSIDE RECORDS SUMMARY | 2025-03-02 09:53 | XMS_ITS | Encounter Summary ---
Author Organization [employer] ([place], [place], [place], [place]) Address [address] [place] [address] Care Team Providers Care County Demonstrator Name Role Phone Unavailable Primary Care Provider Unavailabl e Encounter Details Date Type Department Care Team (Late st Contact Info) Description 05/18/2019 Transcribed Document [facility] [place] [facility] [place] [address] ProviderEmilia MD [address] [place] [address] Social History Tobacco Use Types Packs/Day Years Used Date Smoking Tobacco: Never Assessed Sex and Gender Information Value Date Recorded Sex Assigned at Not on file Legal Sex Male 5:19 PM CDT Gender Identity Not on file Sexual Orientation Not on file documented as of this encounter Miscellaneous Notes * Cerner Conversion Note - Emilia St MD - 05/18/2019 6:16 PM ORAL HEALTH THERAPIST [facility] [place], [place] [id number] JOHNATHAN PARHAM :1955 Visit Time:05/18/2019 Your Visit [...] Within 2 to 3 days Where: [address] [place] [address]- Business (1) Allergies Contrast Dye Immunizations This [...] range between ( 0.0 and 7.0 ) [place] #: 0.45 K/uL -- Normal range between ( 0.16 and 1.00 ) Eos #: 0.15 x10(3)/uL -- Normal range between ( 0.00 and 0.80 ) [place] %: 8.3 % -- Normal range between [...] these instructions at home: Medicines ??? Take nwzm-zan-dulxgeg and prescription medicines only as told by [...] you work with a diet and nutritional chemist (registered dietitian) to educate you about healthy [...] 2006 Document Revised: 07/28/2017 Document Reviewed: 07/28/2017 [employer] Patient Education ?? 2019 [employer] Emergency Awareness and Preventative Care STROKE [...] Assistance with quitting is available by contacting 8-499-UAOYNOW. This is a free resource providing counseling, [...] was given the opportunity to ask questions. Patient/Graphics Intern Name: Patient/Graphics Intern Signature: Relationship to Patient: Clinician/Hospital Graphics Intern Signature: Please Provide a Telephone Number Where You Can Be Reached: Is it Permissible To Leave a Message? Date: documented in this encounter Plan of Treatment Not on file documented as of this encounter Visit Diagnoses Not on filedocumented in this encounter
--- OUTSIDE RECORDS SUMMARY | 2025-03-02 09:53 | XMS_ITS | Encounter Summary ---
Author Organization [employer] ([place], [place], [place], [place]) Address [address] [place] [address] Care Team Providers Care Quality Assurance Project Manager Name Role Phone Unavailable Primary Care Provider Unavailabl e Encounter Details Date Type Department Care Team (Late st Contact Info) Description 02/03/2019 Transcribed Document [facility] [place] [facility] [place] [address] ProviderEmilia MD [address] [place], [place] [phone] Social History Tobacco Use Types Packs/Day Years [...] Numbers : Insurance 1 Health Plan: HUMANA [place] Policy Number: [id number] Authorization Number: Insurance Primary Name : [employer] [place] Policy Number: [id number] Authorization Status-Primary : Notification only Authorization Number-Primary : [id number] Authorized Service Begin Date-Primary : 01/29/2019 EDT Authorization Comments-Primary : Per call from Esperanza approved IP admission. Historical Authorization Comments-Primary : Comment 1: [facility] this am re: does not meet IP, did we want to change to OBS or have it routed to medical aides teacher? Pt had heart cath planned for today, asked him to wait for outcome of C. Cath unremarkable per cards note, discussed case w/ DMc who requests leave as IP and have it routed to med director. Call back to [facility] to request route to MD. (MANOLO CHAU, RN-Utilization Review 02/01/2019 14:35) Comment 2: Received voice mail on main line from Doris at [facility] stating that pt OBS, not meeting for INPT and we need to send more clinical if we have any. ph# [phone] fx# [phone] Made Manolo De Jesus aware as she is following the patient today. (MALIHA DOSHI, Coating Machine Feeder 02/01/2019 13:11) Comment 3: Per Star notes Notify Payer of Admission - InProgress - faxed clinicals via cerner. (MIRYAM KOTHARI RN 01/30/2019 13:46) MIRYAM KOTHARI RN - 02/03/2019 9:44 EDT documented in this encounter Plan of Treatment Not on file documented as of this encounter Visit Diagnoses Not on filedocumented in this encounter
--- OUTSIDE RECORDS SUMMARY | 2025-03-02 09:53 | XMS_ITS | Encounter Summary ---
Author Organization [employer] ([place], [place], [place], [place]) Address [address] [place] [address] Care Team Providers Care Surgery Nurse Name Role Phone Unavailable Primary Care Provider Unavailabl e Encounter Details Date Type Department Care Team (Late st Contact Info) Description 02/02/2019 Transcribed Document [facility] [place] [facility] [place] [address] ProviderEmilia MD [address] [place], [place] [phone] Social History Tobacco Use Types Packs/Day Years [...] History of obstructive sleep apnea / IMO [id number] / Confirmed, Active Problems (6) CKD (chronic kidney disease) Diabetes mellitus GERD (gastroesophageal reflux disease) History of obstructive sleep apnea [place] (hard of hearing) Hypertension Objective VS/Measurements Vitals [...]
--- OUTSIDE RECORDS SUMMARY | 2025-03-02 09:53 | XMS_ITS | Encounter Summary ---
Author Organization [employer] ([place], [place], [place], [place]) Address [address] [place] [address] Care Team Providers Care Music Mixer Name Role Phone Unavailable Primary Care Provider Unavailabl e Encounter Details Date Type Department Care Team (Late st Contact Info) Description 05/18/2019 Transcribed Document [facility] [place] [address] [place] [address] ProviderEmilia MD [address] [place], [place] [phone] Social History Tobacco Use Types Packs/Day Years Used Date Smoking Tobacco: Never Assessed Sex and Gender Information Value Date Recorded Sex Assigned at Not on file Legal Sex Male 5:19 PM CDT Gender Identity Not on file Sexual Orientation Not on file documented as of this encounter Miscellaneous Notes * Cerner Conversion Note - Historical ProviderMD - 05/18/2019 2:22 PM DISTILLERY LABORER Pain Assessment Entered On: 05/18/2019 15:25 EST Performed On: 05/18/2019 15:25 EST by ERICA MONROY RN Intervention Information: morphine Performed by ERICA MONROY RN on 05/18/2019 14:38:00 EST morphine,4mg IV Push,Right Antecubit Jenn Pain Assessment Pain Assessment : Follow-up assessment [...]
--- OUTSIDE RECORDS SUMMARY | 2025-03-02 09:53 | XMS_ITS | Encounter Summary ---
Author Organization [employer] ([place], [place], [place], [place]) Address [address] [place] [address] Care Team Providers Care Hand Cigar Making Supervisor Name Role Phone Unavailable Primary Care Provider Unavailabl e Encounter Details Date Type Department Care Team (Late st Contact Info) Description 02/02/2019 Transcribed Document [facility] [place] Family Medicine [facility] [place] [address] ProviderEmilia MD [address] [place], [place] [phone] Social History Tobacco Use Types Packs/Day Years [...] Stated) GERD (gastroesophageal reflux disease) (Patient Stated) [place] (hard of hearing) (Patient Stated) History of [...] 40.6 kg/m2 Critical (01/29/19 22:48:00) Rapid Response Hand Cigar Making Supervisor #1 : SHEREEN ZURITA V, RN SHEREEN ZURITA V RN - 02/02/2019 1:36 EDT documented in this encounter Plan of Treatment Not on file documented as of this encounter Visit Diagnoses Not on filedocumented in this encounter
--- OUTSIDE RECORDS SUMMARY | 2025-03-02 09:53 | XMS_ITS | Encounter Summary ---
Author Organization [employer] ([place], [place]) Address [address] [place] [address] Care Team Providers Care College Teacher Name Role Phone Unavailable Primary Care Provider Unavailabl e Encounter Details Date Type Department Care Team (Late st Contact Info) Description 02/02/2019 Transcribed Document [facility] [place] Family Medicine [facility] [place] [address] ProviderEmilia MD [address] [place], [place] [id number] Social History Tobacco Use Types Packs/Day Years [...] these instructions at home: Medicines ??? Take cytq-gys-jymeguh and prescription medicines only as told by [...] 01/18/2015 Document Revised: 06/13/2017 Document Reviewed: 06/13/2017 [employer] Patient Education ? 2019 [employer] Endocrinology Carbohydrate Counting for Diabetes Mellitus, [...] for every person. A diet and dairy nutrition specialist (registered dietitian) can help you make [...] of carbohydrates: ? hamburger bun or ? Liberian muffin. ? oz (15 mL) syrup. ? [...] foods that contain carbohydrates: ??? Rice. ??? [place]. ??? Milk. ??? Strawberries. 2. Calculate how [...] your diabetes. ??? A diet and dairy nutrition specialist (registered dietitian) can help you make a meal plan and calculate how many carbohydrates you should have at each meal and snack. This information is not intended to replace advice given to you by your health care provider. Make sure you discuss any questions you have with your health care provider. Document Released: 2006 Document Revised: 12/31/2017 Document Reviewed: 12/04/2016 [employer] Patient Education ? 2019 [employer] Diabetes Mellitus and Skin Care Diabetes [...] (acanthosis nigricans). This typically affects people of -Bar[place] and Barb[place]- descent. ??? Red, raised, scar-like tissue that may itch, feel painful, or develop into a wound (necrobiosis lipoidica). ??? Blisters on feet, toes, hands, or fingers. ??? Thickened, wax-like areas of skin that usually occur on the hands, forehead, or toes (digital sclerosis). ??? Brown or red ring-shaped or ijhd-wdli-sxuyqe patches of skin on the ears or [...] 12/03/2016 Document Revised: 01/01/2018 Document Reviewed: 12/03/2016 [employer] Patient Education ? 2019 [employer] Diabetes Mellitus and Nutrition, Adult When [...] work with a diet and dairy nutrition specialist (dietitian) to make a meal plan [...] ??? Work with a counselor or clinical informatics educator to identify strategies to manage stress and any emotional and social challenges. Questions to ask a health care provider ??? Do I need to meet with a clinical informatics educator? Do I need to meet with a dietitian? What number can I call if I have questions? When are the best times to check my blood glucose? Where to find more information: ??? [place] Diabetes Association: diabetes.org ??? Academy of Nutrition and Dietetics: www.eatright.org ??? National Lake of Diabetes and Digestive and Kidney Diseases (NIH): www.niddk.nih.gov Summary ??? A healthy meal plan will help you control your blood glucose and maintain a healthy lifestyle. ??? Working with a diet and dairy nutrition specialist (dietitian) can help you make a [...] 03/20/2006 Document Revised: 01/21/2018 Document Reviewed: 07/28/2017 [employer] Patient Education ? 2019 [employer]. Nephrology Diabetic Nephropathy Diabetic nephropathy is kidney [...] parent to child (inherited). ??? Are of -Barbadian, , , , or descent. What are [...] by your health care provider. ??? Take blla-sla-hkwxgiv and prescription medicines only as told by [...] 07/12/2008 Document Revised: 02/10/2018 Document Reviewed: 05/21/2017 [employer] Patient Education ? 2019 [employer]. Chronic Kidney Disease, Adult Chronic kidney disease [...] these instructions at home: Medicines ??? Take iper-uqw-etmgsaz and prescription medicines only as told by [...] 09/17/2010 Document Revised: 07/28/2017 Document Reviewed: 07/28/2017 [employer] Patient Education ? 2019 [employer] Hypertension Hypertension is another name for [...] doctor. This is important. Medicines ??? Take cjfr-xdx-gcsmyav and prescription medicines only as told by [...] 12/09/2008 Document Revised: 05/21/2017 Document Reviewed: 05/21/2017 [employer] Patient Education ? 2019 [employer] Electronically signed by Kiara Van Conversion Certified Solid Waste Facility Operator Jose at 10/22/2022 11:10 PM CDT documented in this encounter Plan of Treatment Not on file documented as of this encounter Visit Diagnoses Not on filedocumented in this encounter
--- OUTSIDE RECORDS SUMMARY | 2025-03-02 09:53 | XMS_ITS | Encounter Summary ---
Author Organization [employer] ([place], [place], [place]) Address [address] [place] [address] Care Team Providers Care Disk Sharpener Name Role Phone Unavailable Primary Care Provider Unavailabl e Encounter Details Date Type Department Care Team (Late st Contact Info) Description 02/02/2019 Transcribed Document [facility] [place] Family Medicine [facility] [place] [address] ProviderEmilia MD [address] [place], [place] [id number] Social History Tobacco Use Types Packs/Day Years Used Date Smoking Tobacco: Never Assessed Sex and Gender Information Value Date Recorded Sex Assigned at Not on file Legal Sex Male 5:19 PM CDT Gender Identity Not on file Sexual Orientation Not on file documented as of this encounter Miscellaneous Notes * [employer] Conversion Note - Historical ProviderMD - 02/02/2019 2:00 AM CDT Sewing Pattern Layout Technician Details Entered On: 02/02/2019 6:46 EDT Performed [...]
--- OUTSIDE RECORDS SUMMARY | 2025-03-02 09:53 | XMS_ITS | Encounter Summary ---
Author Organization [employer] ([place], [place], [place], [place]) Address [address] [place] [address] Care Team Providers Care Appliance Repairer Name Role Phone Unavailable Primary Care Provider Unavailabl e Encounter Details Date Type Department Care Team (Late st Contact Info) Description 02/04/2019 Transcribed Document [facility] [place] [facility] [place] [address] ProviderEmilia MD [address] [place], [place] [phone] Social History Tobacco Use Types Packs/Day Years [...]
--- OUTSIDE RECORDS SUMMARY | 2025-03-02 09:53 | XMS_ITS ---
Author Organization [facility] Care Team Providers Care Clinical Social Worker Name Role Phone Martina Reed Unavailable Unavailable JORGE RUBY Unavailable Unavailable Elvia Mcmahon Unavailable Unavailab Esperanza Mack Unavailable Unavailable Nestor Infante Unavailable Unavailable Allergies and adverse reactions Code CodeSystem Substance Reaction Severity StartDate Concern Status 7476 RXNORM Nitroprusside Unknown 11/13/2023 active Care Team Name Role Address Phone Organization Dates JORGE RUBY [facility] [address], [place], [address], [place] (Office): : [facility] 11/13/2023 - 01/07/2024 Martina Reed [address], [place], [address], [place] (Office): : : [facility] 11/13/2023 - 01/07/2024 Elvia Mcmahon [address], [place], [address], [facility] (Office): : : [facility] 11/13/2023 - 01/07/2024 Esperanza Barbour [address], [place], [place], [facility] [place], [facility] (Office): : : [facility] 11/13/2023 - 01/07/[address] (Office): [facility] 11/13/2023 - 01/07/2024 Immunizations Immunization [...] CodeSystem Concern Status 1 OSTEOMYELITIS, UNSPECIFIED 12/06/[address] active 2 OTHER REDUCED MOBILITY 12/06/[address] active 3 ANEMIA, UNSPECIFIED 11/13/[address] active 4 ATHEROSCLEROTIC HEART DISEASE OF [place] CORONARY ARTERY WITHOUT ANGINA PECTORIS 11/13/[address] active 5 BENIGN PROSTATIC HYPERPLASIA WITH LOWER URINARY TRACT SYMPTOMS 11/13/[address] active 6 CHRONIC KIDNEY DISEASE, UNSPECIFIED 11/13/[address] active 7 DEPRESSION, UNSPECIFIED 11/13/[address] active 8 ESSENTIAL (PRIMARY) HYPERTENSION 11/13/[address] active 9 GASTRO-ESOPHAGEAL REFLUX DISEASE WITHOUT ESOPHAGITIS 11/13/[address] active 10 HYPERLIPIDEMIA, UNSPECIFIED 11/13/[address] active 11 HYPOTHYROIDISM, UNSPECIFIED 11/13/[address] active 12 INSOMNIA, UNSPECIFIED 11/13/[address] active 13 MORBID (SEVERE) OBESITY DUE TO EXCESS CALORIES 11/13/1911/13/[address] completed 14 MUSCLE WEAKNESS (GENERALIZED) 11/13/[address] active 15 OBSTRUCTIVE SLEEP APNEA (ADULT) (PEDIATRIC) 11/13/[address] active 16 OSTEOMYELITIS, UNSPECIFIED 11/13/19 24 11/13/[address] completed 17 OTHER ACUTE OSTEOMYELITIS, LEFT ANKLE AND FOOT 11/13/[address] active 18 OTHER ACUTE OSTEOMYELITIS, LEFT TIBIA AND FIBULA 11/13/[address] active 19 POST-TRAUMATIC STRESS DISORDER, UNSPECIFIED 11/13/[address] active 20 TYPE 2 DIABETES MELLITUS WITH DIABETIC NEUROPATHY, UNSPECIFIED 11/13/[address] active 21 UNSPECIFIED COMBINED SYSTOLIC (CONGESTIVE) AND DIASTOLIC (CONGESTIVE) HEART FAILURE 11/13/[address] active 22 HEMIPLEGIA AND HEMIPARESIS FOLLOWING CEREBRAL INFARCTION AFFECTING RIGHT DOMINANT SIDE 09/04/[address] active Reason for Referral No Reasons for Referral Entered Social History Social History Observation Description Start Date End Date Code Code System Current Smoking Status Tobacco smoking consumption unknown 627397003 SNOMED CT Sex Assigned At Male 1955 95744-4 [facility] Gender Identity Male [id number] [address] Vital Signs Code Code System Vitals Name Values and Units Timing Information 8867-4 [facility] Heart rate Value=72.0 Units=/min 09/2023 8462-4 [facility] Blood Pressure-Diastolic Value=78 Un its=mmHg 01/07/2024 8480-6 [facility] Blood Pressure-Systolic Ppodf=425 Un its=mmHg 01/07/2024 9279-1 [facility] Respiratory Rate Value=18.0 Units=/m in 01/02/2024 8310-5 [facility] Body Temperature Value=97.8 Units= F 01/02/2024 75938-2 [facility] O2 % BldC Oximetry Value=94.0 Units= % 01/02/2024 68421-5 [facility] Pain Level Value=0.0 01/02/2024 61482-6 [facility] Weight Pfzbi=350.4 Units=Lbs 05/2024 8302-2 [facility] Height Value=69.0 Units=Inches 11/13/2023
--- OUTSIDE RECORDS SUMMARY | 2025-03-02 09:53 | XMS_ITS | Encounter Summary ---
Author Organization [employer] ([place], [place], [place]) Address [address] [place] [address] Care Team Providers Care Account Support Manager Name Role Phone Unavailable Primary Care Provider Unavailabl e Encounter Details Date Type Department Care Team (Late st Contact Info) Description 05/18/2019 Transcribed Document [facility] [place] [facility] [place] [address] ProviderEmilia MD [address] [place], [place] [address] Social History Tobacco Use Types Packs/Day Years Used Date Smoking Tobacco: Never Assessed Sex and Gender Information Value Date Recorded Sex Assigned at Not on file Legal Sex Male 5:19 PM CDT Gender Identity Not on file Sexual Orientation Not on file documented as of this encounter Miscellaneous Notes * Cerner Conversion Note - Historical ProviderMD - 05/18/2019 6:17 PM [facility] ED Discharge Entered On: 05/18/2019 18:17 EST [...] ERICA MONROY RN - 05/18/2019 18:17 EST Electronically signed by Kiara Van Conversion Web Content & Social Media Manager [employer] at 10/22/2022 10:58 PM CDT documented in this encounter Plan of Treatment Not on file documented as of this encounter Visit Diagnoses Not on filedocumented in this encounter
--- NOTE | 2025-03-02 10:15 | CA_ITS ---
APPROVED REPORT EXAM: Comprehensive 2D, Doppler, and color-flow Echocardiogram Pipe Maker: Meggan Ruby RT(R) Ht: 6 ft 0 in Wt: 242lbs BSA: 2.31 BP: 117/64 mmHg Indications: abn EKG, history of CABG, elevated BNP 2D Dimensions LA Volume 33.90 mL LA Volume Index 14.68 mL/m2 (M/F) 16-34 EF AP4 42.90 % GL Strain -7.1 % M-Mode Dimensions RVDd 2.85 cm (0.9-2.6) LA Diam 4.13 cm (1.9-4.0) LVDd 5.44 cm (3.5-5.7) LVDs 4.08 cm (3.5-5.7) IVSd 1.06 cm (0.6-1.1) PWd 1.06 cm (0.6-1.1) EF (Teich) 48.90% FS 25.00% EDV (Teich) 143.70 mL ESV (Teich) 73.40 mL LV Diastology E Decel Time 180 (160-240 msec) E/A Ratio 0.7 Mitral Valve MV E Max Demetrio. 84.0 (40-130 cm/s) MV A Velocity 113.0 (40-130 cm/s) E/A Ratio 0.74 MV PHT 53.0 ms Left Ventricle The left ventricle is normal size. Left ventricular systolic function is borderline reduced. There is increased left ventricular wall thickness. The septum is asynchronous. Grade 1 diastolic dysfunction is present. LVEF is 50%. Right Ventricle The right ventricle is normal size. The right ventricular systolic function is normal. Atria The left atrium is mildly dilated. The right atrium is mildly dilated. There is no color Doppler evidence of interatrial shunt. Aortic Valve The aortic valve is mildly thickened. There is no hemodynamically significant aortic valvular stenosis. No aortic regurgitation is present. Mitral Valve The mitral valve is normal in structure. No evidence of mitral valve stenosis. Mild mitral regurgitation is present. Tricuspid Valve The tricuspid valve leaflets are thin and pliable. Trace tricuspid regurgitation. There is insufficient TR jet to estimate RVSP. Pulmonic Valve The pulmonary valve is grossly normal in structure. Mild pulmonic valve regurgitation is present. Great Vessels The aortic root is normal in size. IVC is normal in size and collapses >50% with inspiration. Pericardium There is no pericardial effusion. Other Information Study Quality: Technically Difficult Conclusion Technically difficult study due to poor acoustic windows. Low normal LV systolic function (LVEF 50%). Mild biatrial dilation. Mild MR, mild PI. In the setting of technically difficult study, future TTE evaluations are suggested with administration of ultrasound enhancing agent to better delineate the LV endocardial borders. Electronically signed by : Brittany Jamison MD 03/02/2025 12:39:12
--- NOTE | 2025-03-02 11:00 | CA_ITS ---
FINAL REPORT TECHNIQUE: Ultrasound images of the kidneys were obtained. Duplex Doppler of the renal arteries, RAR and RI also obtained. Spectral analysis was performed. CLINICAL HISTORY: LUKASZ,RT RENAL ART STENT COMPARISON: None FINDINGS: Limited images of the liver parenchyma demonstrate normal echogenicity. The right kidney measures 10.78 cm in length. It is normal echogenicity. There is no hydronephrosis. RI is 0.68-0.80. The renal artery/aortic ratio: 0.7. The left kidney measures 11.5 cm in length. It is normal echogenicity. There is no hydronephrosis. RI is 0.45-0.74. The renal artery/aortic ratio: 1.6. IMPRESSION: No significant stenosis is seen in the right renal artery. Less than 60% stenosis seen in the left renal artery. Velocities are somewhat unusual, with significant velocity elevation present in the left renal artery. Consider CTA for further evaluation. Reviewed, Interpreted and Dictated by Verónica Parish MD Transcribed by Isadora Norris Authenticated and [facility]
== END 2025-03-02 23:59 | disposition home or self-care (01) ==
LOC: RT 09:48
PROVIDERS: PCP Nurse Practitioner Family; Visit Provider Physician Assistant
DX: I08.8 Other rheumatic multiple valve diseases (principal); I11.0 Hypertensive heart disease with heart failure; I50.9 Heart failure, unspecified; I70.1 Atherosclerosis of renal artery; I65.29 Occlusion and stenosis of unspecified carotid artery; I25.10 Atherosclerotic heart disease of native coronary artery without angina pectoris; R94.31 Abnormal electrocardiogram [ECG] [EKG]; R79.89 Other specified abnormal findings of blood chemistry; R09.89 Other specified symptoms and signs involving the circulatory and respiratory systems; Z95.1 Presence of aortocoronary bypass graft
CPT/HCPCS: 93306; 93976

== ENCOUNTER 2025-03-03 15:00 | Outpatient (RCR) | payer MEDICARE, SELFPAY ==
--- NOTE | 2025-02-25 07:35 | HMH.RHREAS ---
Rehab Reassessment Rehab OP Re-assessment Start: 02/15/25 14:38 Freq: Status: Active Protocol: Document 02/24/25 13:50 LIANNA (Rec: 02/24/25 15:32 LIANNA [id number]) E-signed By Joanna Nolasco PT Dynamic Gait Index Test Protocol Gait Level Surface Mild Impairment Query Text: Instructions: Walk at your normal speed from here to the next león (20'). Grading: León the lowest category that applies. Change in Gait Speed Moderate Impairment Query Text: Instructions: Begin walking at your normal pace (for 5') , when I tell you go , walk as fast as you can (for 5'). When I tell you slow , walk as slowly as you can ( for 5'). Grading: [place] the lowest category that applies. Gait with Horizontal Mild Impairment Head Turns Query Text: Instructions: Begin walking at your normal pace. When I tell you to look right , keep walking straight, but turn you head to the right. Keep looking to the right unit I tell you look left , then keep walking straight and turn your head to the left. Keep your head to the left until I tell you look straight , then keep walking straight, but return you head to the center. Grading: [place] the lowest category that applies. Gait with Vertical Mild Impairment Head Turns Query Text: Instructions: Begin walking at your normal pace. When I tell you to look up , keep walking staight, but tip your head up. Keep looking up until I tell you to look down , then keep walking straight and tip your head down. Keep your head down until I tell you look straight , then keep walking straight, but return your head to the center. Grading: [place] the lowest category that applies. Gait and Pivot Turn Mild Impairment Query Text: Instructions: Begin walking at your normal pace. When I tell you turn and stop , turn as quickly as you can to face the opposite direction and stop. Grading: [place] the lowest category that applies. Step Over Obstacle Moderate Impairment Query Text: Instructions: Begin walking at your normal speed. When you come to the shoebox, step over it, not around it and keep walking. Grading: [place] the lowest category that applies. Step Around Mild Impairment Obstacles Query Text: Instructions: Begin walking at normal speed. When you come to the first cone (about 6' away) , walk around the right side of it. When you come to the second cone (6' past first cone), walk around it to the left. Grading: [place] the lowest category that applies. Steps Severe Impairment Query Text: Instructions: Walk up these stairs as you would at home. At the top, turn around and walk down . Grading: [place] the lowest category that applies. Scoring Dynamic Gait Index 12 Score Rehab Re-assessment Subjective Subjective Pt reports he feels 80% improved since IE. Pt reports he still has difficulty with balance and wishes to work on that. Pt wishes to continue PT to improve mobility, independence, and safety. Objective Objective Notes TUs (34s at last RA) (29s on IE) 5xSTS: 26 seconds (35s at last RA) (28s on IE) FT EO on unstable surface for 30s: pass Romberg: Passed uneven EO, failed uneven EC. MMT LLE: - Hip FLEX = 3+/5 - Hip ABD = 3+/5 - Hip ADD = 4/5 - Knee FLEX = 4/5 - Knee EXT = 4/5 MMT RLE: - Hip FLEX = 4/5 - Hip ABD = 4/5 - Hip ADD = 4/5 - Knee FLEX = 4/5 - Knee EXT = 4/5 Assessment Progress Assessment Progressing as Expected Assessment Notes This is a reassessment for Johnathan Parham who presents to PT for c/o impaired balance and transfers. Since IE, pt has been seen for 11 visits that have consisted of therapeutic exercises and activities focusing on strength, balance, and gait. Pt with good attendance to scheduled PT visits and reports adherence to HEP. Since IE, pt with improvements in gait, BLE strength, and static balance. Pt still presents with impaired gait, DGI & TUG score, and impaired strength. Pt would continue to benefit from skilled outpatient physical therapy to address remaining deficits, improve safety, and achieve LTGs. PT Patient Goals PT Short Term 12/10 MET Patient Goals In 4 weeks, pt will: 1) Verbalize IND with HEP: MET 2) Report he feels at least 40% improved since IE: MET 3) Improve BLE strength by 1/5 grade: MET 4) Improve DGI by 2 points using LRAD to improve safety with mobility: MET 5) Perform TUG test in 25 seconds to improve ambulation : MET 6) Pass Romberg uneven surface EO: MET PT Social Sciences Research Scientist Patient 8 MET Goals In 8 weeks, pt will: 1) Verbalize adherence to ambulating exercise at home: MET 2) Reports he feels at least 80% improved since IE: MET 3) Improve BLE strength to at least 4-4+/5 to improve functional strength: Not met 4) Improve DGI to 15 points using LRAD to improve safety with mobility: MET 5) Perform TUG test in 20 seconds to improve ambulation safety: Not met 6) Pass all Romberg sections to improve static standing balance: Not met 7) Ambulate 20' over uneven surface with LRAD without LOB 3/4 trials: Not met 8) Improve 5xSTS to 24 seconds to improve functional endurance and strength: Not met Plan Plan Continue POC Frequency of Therapy 2x Duration of Therapy 4 weeks Therapeutic Exercise Yes Including Home Exercise Program Neuromuscular Re- Yes education Therapeutic Yes Activities to Return to Previous Functional/Work Level Gait Training Yes ADL/Self Care Yes Education Eval/Re-Eval Yes Time and Billing Re-Eval Time 25 Re-Eval Billing 0 Units Charge for PT No reassessment? PHYSICIAN CERTIFICATION: I certify the specified therapy services for Johnathan Parham are required, authorized, and reviewed every 30 days.
== END 2025-03-03 23:59 | disposition home or self-care (01) ==
LOC: PT 15:00
PROVIDERS: PCP Nurse Practitioner Family; Visit Provider Family Medicine
DX: R26.81 Unsteadiness on feet (principal)
CPT/HCPCS: 97110; 97116; 97530

== ENCOUNTER 2025-03-31 14:00 | Outpatient (RCR) | payer MEDICARE, SELFPAY ==
--- NOTE | 2025-03-25 09:00 | HMH.RHREAS ---
Rehab Reassessment Rehab OP Re-assessment Start: 03/09/25 16:59 Freq: Status: Active Protocol: Document 03/24/25 15:11 LIANNA (Rec: 03/24/25 15:42 LIANNA [id number]) E-signed By Joanna Nolasco PT Dynamic Gait Index Test Protocol Gait Level Surface Mild Impairment Query Text: Instructions: Walk at your normal speed from here to the next león (20'). Grading: Le[place] the lowest category that applies. Change in Gait Speed Mild Impairment Query Text: Instructions: Begin walking at your normal pace (for 5') , when I tell you go , walk as fast as you can (for 5'). When I tell you slow , walk as slowly as you can ( for 5'). Grading: [place] the lowest category that applies. Gait with Horizontal Mild Impairment Head Turns Query Text: Instructions: Begin walking at your normal pace. When I tell you to look right , keep walking straight, but turn you head to the right. Keep looking to the right unit I tell you look left , then keep walking straight and turn your head to the left. Keep your head to the left until I tell you look straight , then keep walking straight, but return you head to the center. Grading: [place] the lowest category that applies. Gait with Vertical Mild Impairment Head Turns Query Text: Instructions: Begin walking at your normal pace. When I tell you to look up , keep walking staight, but tip your head up. Keep looking up until I tell you to look down , then keep walking straight and tip your head down. Keep your head down until I tell you look straight , then keep walking straight, but return your head to the center. Grading: Le[place] the lowest category that applies. Gait and Pivot Turn Mild Impairment Query Text: Instructions: Begin walking at your normal pace. When I tell you turn and stop , turn as quickly as you can to face the opposite direction and stop. Grading: Le[place] the lowest category that applies. Step Over Obstacle Moderate Impairment Query Text: Instructions: Begin walking at your normal speed. When you come to the shoebox, step over it, not around it and keep walking. Grading: Le[place] the lowest category that applies. Step Around Mild Impairment Obstacles Query Text: Instructions: Begin walking at normal speed. When you come to the first cone (about 6' away) , walk around the right side of it. When you come to the second cone (6' past first cone), walk around it to the left. Grading: Le[place] the lowest category that applies. Steps Moderate Impairment Query Text: Instructions: Walk up these stairs as you would at home. At the top, turn around and walk down . Grading: Le[place] the lowest category that applies. Scoring Dynamic Gait Index 14 Score Rehab Re-assessment Subjective Subjective Pt reports he feels 85% improved since IE. Pt reports he feels his balance is improving some. My balance has been getting better, but it's not there yet . Objective Objective Notes TUs (29s on IE) 45 with Hemiwalker 5xSTS: 21 seconds (28s on IE) FT EO on unstable surface for 30s: pass Romberg: Passed uneven EO, failed uneven EC. MMT LLE: - Hip FLEX = 4/5 - Hip ABD = 4+/5 - Hip ADD = 4/5 - Knee FLEX = 4/5 - Knee EXT = 4/5 MMT RLE: - Hip FLEX = 4/5 - Hip ABD = 4+/5 - Hip ADD = 4/5 - Knee FLEX = 4/5 - Knee EXT = 4/5 Assessment Progress Assessment Progressing as Expected Assessment Notes This is a reassessment for Johnathan Parham who presents to PT for c/o impaired balance and transfers. Since IE, pt has consistently been attending therapy sessions that have consisted of therapeutic exercises and activities focusing on strength, balance, and gait. Pt with good attendance to scheduled PT visits and reports adherence to HEP. Since IE, pt with improvements in gait, BLE strength, and static balance. Since last RA, pt with improvements in 5xSTS and BLE strength. Pt still presents with impaired gait, DGI & TUG score, and impaired strength. Pt would continue to benefit from skilled outpatient physical therapy to address remaining deficits, improve safety, and achieve LTGs. PT Patient Goals PT Short Term 5/6 MET Patient Goals In 4 weeks, pt will: 1) Verbalize IND with HEP: MET 2) Report he feels at least 40% improved since IE: MET 3) Improve BLE strength by 1/5 grade: MET 4) Improve DGI by 2 points using LRAD to improve safety with mobility: MET 5) Perform TUG test in 25 seconds to improve ambulation : Not MET 6) Pass Romberg uneven surface EO: MET PT Chemical Inspector Patient 5/8 MET Goals In 8 weeks, pt will: 1) Verbalize adherence to ambulating exercise at home: MET 2) Reports he feels at least 80% improved since IE: MET 3) Improve BLE strength to at least 4-4+/5 to improve functional strength: MET 4) Improve DGI to 15 points using LRAD to improve safety with mobility: MET 5) Perform TUG test in 20 seconds to improve ambulation safety: Not met 6) Pass all Romberg sections to improve static standing balance: Not met 7) Ambulate 20' over uneven surface with LRAD without LOB 3/4 trials: Not met 8) Improve 5xSTS to 24 seconds to improve functional endurance and strength: MET Plan Plan Continue current POC Frequency of Therapy 2x Duration of Therapy 3-4 weeks Time and Billing Re-Eval Time 15 Re-Eval Billing 0 Units Charge for PT No reassessment? PHYSICIAN CERTIFICATION: I certify the specified therapy services for Johnathan Parham are required, authorized, and reviewed every 30 days.
== END 2025-03-31 23:59 | disposition home or self-care (01) ==
LOC: PT 14:00
PROVIDERS: PCP Nurse Practitioner Family; Visit Provider Family Medicine
DX: R26.81 Unsteadiness on feet (principal)
CPT/HCPCS: 97112; 97116; 97530

== ENCOUNTER 2025-05-03 14:00 | Outpatient (RCR) | payer MEDICARE, SELFPAY ==
--- NOTE | 2025-04-28 16:51 | HMH.RHREAS ---
Rehab Reassessment Rehab OP Re-assessment Start: 04/07/25 14:18 Freq: Status: Active Protocol: Document 04/28/25 16:38 PHORCRISTOPHER (Rec: 04/28/25 16:51 PHORCRISTOPHER [id number]) E-signed By Nestor Mak PT Dynamic Gait Index Test Protocol Gait Level Surface Mild Impairment Query Text: Instructions: Walk at your normal speed from here to the next león (20'). Grading: León the lowest category that applies. Change in Gait Speed Mild Impairment Query Text: Instructions: Begin walking at your normal pace (for 5') , when I tell you go , walk as fast as you can (for 5'). When I tell you slow , walk as slowly as you can ( for 5'). Grading: [place] the lowest category that applies. Gait with Horizontal Mild Impairment Head Turns Query Text: Instructions: Begin walking at your normal pace. When I tell you to look right , keep walking straight, but turn you head to the right. Keep looking to the right unit I tell you look left , then keep walking straight and turn your head to the left. Keep your head to the left until I tell you look straight , then keep walking straight, but return you head to the center. Grading: Le[place] the lowest category that applies. Gait with Vertical Mild Impairment Head Turns Query Text: Instructions: Begin walking at your normal pace. When I tell you to look up , keep walking staight, but tip your head up. Keep looking up until I tell you to look down , then keep walking straight and tip your head down. Keep your head down until I tell you look straight , then keep walking straight, but return your head to the center. Grading: Le[place] the lowest category that applies. Gait and Pivot Turn Mild Impairment Query Text: Instructions: Begin walking at your normal pace. When I tell you turn and stop , turn as quickly as you can to face the opposite direction and stop. Grading: León the lowest category that applies. Step Over Obstacle Moderate Impairment Query Text: Instructions: Begin walking at your normal speed. When you come to the shoebox, step over it, not around it and keep walking. Grading: León the lowest category that applies. Step Around Mild Impairment Obstacles Query Text: Instructions: Begin walking at normal speed. When you come to the first cone (about 6' away) , walk around the right side of it. When you come to the second cone (6' past first cone), walk around it to the left. Grading: León the lowest category that applies. Steps Moderate Impairment Query Text: Instructions: Walk up these stairs as you would at home. At the top, turn around and walk down . Grading: León the lowest category that applies. Scoring Dynamic Gait Index 14 Score Rehab Re-assessment Subjective Subjective Pt reports he feels about 85% better since beginning therapy. He reports he continues to tire easily with daily activities and walking and he continues to have difficulty with all ADL's due to continued weakness in his R UE and poor balance. Objective Objective Notes TUs (29s on IE) with platform RW 5xSTS: 21 seconds (28s on IE) FT EO on unstable surface for 30s: pass Romberg: Passed uneven EO, failed uneven EC. MMT LLE: - Hip FLEX = 4/5 - Hip ABD = 4+/5 - Hip ADD = 4/5 - Knee FLEX = 4/5 - Knee EXT = 4/5 MMT RLE: - Hip FLEX = 4/5 - Hip ABD = 4+/5 - Hip ADD = 4/5 - Knee FLEX = 4/5 - Knee EXT = 4/5 Assessment Progress Assessment Slower Than Expected Assessment Notes Pt has been present for 3 treatment session since his last reassessment due to awaiting insurance authorization of visits. He has seen decreased endurance to activity since his last treatment session. He continues to need skilled therapy services in order to increase strength, improve endurance to all activity and improve ability to perform all ADLs in order to aid improved QOL. PT Patient Goals PT Short Term 5/6 MET Patient Goals In 4 weeks, pt will: 1) Verbalize IND with HEP: MET 2) Report he feels at least 40% improved since IE: MET 3) Improve BLE strength by 1/5 grade: MET 4) Improve DGI by 2 points using LRAD to improve safety with mobility: MET 5) Perform TUG test in 25 seconds to improve ambulation : Not MET 6) Pass Romberg uneven surface EO: MET New Goals: In 4 weeks, pt will: 7) Report he feels at least 90% improved since IE 8) Improve BLE strength by 2/5 grade 9) Improve DGI by 4 points using LRAD to improve safety with mobility 10) Pass Romberg uneven surface EC PT Strategic Intelligence Officer Patient 5/8 MET Goals In 8 weeks, pt will: 1) Verbalize adherence to ambulating exercise at home: MET 2) Reports he feels at least 80% improved since IE: MET 3) Improve BLE strength to at least 4-4+/5 to improve functional strength: MET 4) Improve DGI to 15 points using LRAD to improve safety with mobility: MET 5) Perform TUG test in 20 seconds to improve ambulation safety: Not met 6) Pass all Romberg sections to improve static standing balance: Not met 7) Ambulate 20' over uneven surface with LRAD without LOB 3/4 trials: not met 8) Improve 5xSTS to 24 seconds to improve functional endurance and strength: MET New Goals: In 8 weeks, pt will: 9) Reports he feels at least 100% improved since IE 10) Improve BLE strength to at least 4+ or 5/5 to improve functional strength 11) Improve DGI to 16 points using LRAD to improve safety with mobility 12) Improve 5xSTS to 21 seconds to improve functional endurance and strength Plan Plan Updated POC sent to provider for their continued input and approval. Continued pt treatment may include any or all of the following interventions in order to improve functional outcomes and aid pt improvement in QOL: Frequency of Therapy 2 x/wk Duration of Therapy 8 wks Therapeutic Exercise Yes Including Home Exercise Program Manual Therapy Yes Techniques Neuromuscular Re- Yes education Therapeutic Yes Activities to Return to Previous Functional/Work Level Gait Training Yes ADL/Self Care Yes Education Eval/Re-Eval Yes Time and Billing Re-Eval Time 17 Re-Eval Billing 0 Units Charge for PT No reassessment? PHYSICIAN CERTIFICATION: I certify the specified therapy services for Johnathan Parham are required, authorized, and reviewed every 30 days.
== END 2025-05-03 23:59 | disposition home or self-care (01) ==
LOC: PT 14:00
PROVIDERS: PCP Nurse Practitioner Family; Visit Provider Family Medicine
DX: R26.81 Unsteadiness on feet (principal)
CPT/HCPCS: 97112; 97116; 97530

== ENCOUNTER 2025-05-09 13:33 | Emergency (ER) | payer MEDICARE, SELFPAY ==
[2025-05-09] VITALS (10 sets, daily range): BP systolic 117–179; BP diastolic 70–96; PULSE 66–78; RESP 20; TEMP 36.4; O2SAT 96–98; BMI 32.5
--- OUTSIDE RECORDS SUMMARY | 2025-05-09 15:25 | XMS_ITS | Encounter Summary ---
Author Organization [employer] ([place], [place], [place], [place], [place]) Address [address] [place] [address] Care Team Providers Care Senior Engineering Technician Name Role Phone Unavailable Primary Care Provider Unavailabl e Encounter Details Date Type Department Care Team (Late st Contact Info) Description 05/18/2019 Transcribed Document [facility] [place] Family Medicine [address] [place] [address] ProviderEmilia MD [address], [place] [id number] Social History Tobacco Use Types Packs/Day Years Used Date Smoking Tobacco: Never Assessed Sex and Gender Information Value Date Recorded Sex Assigned at Not on file Legal Sex Male 5:19 PM CDT Gender Identity Not on file Sexual Orientation Not on file documented as of this encounter Miscellaneous Notes * Cerner Conversion Note - Historical ProviderMD - 05/18/2019 1:36 PM SKILLED NURSING FACILITY COUNSELOR ED Triage Entered On: 05/18/2019 13:41 EST [...] : 2 - Emergent Tracking Group : [facility] ED Shelby Jefferson RN - 05/18/2019 13:38 EST Mode of Arrival : Stretcher Transported to ED by : Ambulance/ALS EMS Service : [facility] To Room Via : Stretcher Accompanied By : Unaccompanied AUTOMOTIVE DESIGN LAYOUT DRAFTER Medications and Interventions : Document ED Vital Signs : Document Height & Weight : Document ED Allergies : Document ED Reason for Visit : Document Tetanus Immunization : Unknown Manager Product Support Needed : No Shelby Jefferson RN - [...] Estimated Onset Date: Unspecified ; Created By: Aan Villeda Rn; Reaction Status: Active ; Category: Other ; Substance: Contrast Dye ; Updated By: Ana Villeda Rn; Reviewed Date: 05/18/2019 13:40 EST Diagnosis Control ED (As Of: 05/18/2019 13:41:21 EST) Problems(Active) CKD (chronic kidney disease) (SNOMED CT :4363325366 ) Name of Problem: CKD (chronic kidney disease) ; Recorder: Ana Villeda RN; Confirmation: Confirmed ; Classification: Patient Stated ; Code: [id number] ; Contributor System: Grupo AChart ; Last Updated: 01/29/2019 22:37 EDT ; Life Cycle Date: 01/29/2019 ; Life Cycle Status: Active ; Vocabulary: SNOMED CT Diabetes mellitus (SNOMED CT :306852285 ) Name of Problem: Diabetes mellitus ; Recorder: Ana Villeda RN; Confirmation: Confirmed ; Classification: Patient Stated ; Code: [id number] ; Contributor System: Grupo AChart ; Last Updated: 01/29/2019 22:37 EDT ; Life Cycle Date: 01/29/2019 ; Life Cycle Status: Active ; Vocabulary: SNOMED CT GERD (gastroesophageal reflux disease) (SNOMED CT :350157189 ) Name of Problem: GERD (gastroesophageal reflux disease) ; Recorder: Ana Villeda RN; Confirmation: Confirmed ; Classification: Patient Stated ; Code: [id number] ; Contributor System: PowerChart ; Last Updated: 01/29/2019 22:37 EDT ; Life Cycle Date: 01/29/2019 ; Life Cycle Status: Active ; Vocabulary: SNOMED CT History of obstructive sleep apnea (IMO :06521970 ) Name of Problem: History of obstructive sleep apnea ; Recorder: SYSTEM, SYSTEM; Confirmation: Confirmed ; Classification: Medical ; Code: [id number] ; Last Updated: 01/29/2019 22:48 EDT ; Life Cycle Date: 01/29/2019 ; Life Cycle Status: Active ; Vocabulary: IMO [place] (hard of hearing) (SNOMED CT :35660178 ) Name of Problem: [place] (hard of hearing) ; Recorder: Ana Villeda RN; Confirmation: Confirmed ; Classification: Patient Stated ; Code: 60427894 ; Contributor System: [email or web address] ; Last Updated: 01/29/2019 22:37 EDT ; Life Cycle Date: 01/29/2019 ; Life Cycle Status: Active ; Vocabulary: SNOMED CT Hypertension (SNOMED CT :3399631714 ) Name of Problem: Hypertension ; Recorder: Ana Villeda RN; Confirmation: Confirmed ; Classification: Patient Stated ; Code: [id number] ; Contributor System: turntable.fm ; Last Updated: 01/29/2019 22:37 EDT ; Life Cycle Date: 01/29/2019 ; Life Cycle Status: Active ; Vocabulary: SNOMED CT Diagnoses(Active) Chest pain Date: 05/18/2019 ; Diagnosis Type: Reason For Visit ; Confirmation: Complaint of ; Clinical Dx: Chest pain ; Classification: Medical ; Clinical Service: Emergency medicine ; Code: PNED ; Probability: 0 ; Diagnosis Code: [id number] ED Height and Weight Height Source : Estimated Height Entry Format : Hood Height, Feet : 6 ft(Converted to: 183 cm, 72 Inch) Height, Inches : 2 Inch(Converted to: 0 ft 2 Inch, 5.08 cm) Clinical Height : 187.96 cm Weight Source, ED : Critical estimated dosing weight Weight Entry Format : Hood Weight, Pounds : 320 lb Clinical Dosing Weight : 145.45 kg Body Surface Area (BSA) : 2.66 m2 Body Mass Index : 41.2 kg/m2 (>HHI) [place] Body Weight (IBW) : 81.16 kg Shelby Jefferson RN - 05/18/2019 13:38 EST AUTOMOTIVE DESIGN LAYOUT DRAFTER Medications and Interventions Treatments Prior to Arrival : Other: 20 G right AC; fsbs 346 Shelby Jefferson RN - 05/18/2019 13:38 EST Electronically signed by Rehan, [facility] Conversion Manager Decision Support Cerner at 10/22/2022 11:22 PM CDT documented in this encounter Plan of Treatment Not on file documented as of this encounter Visit Diagnoses Not on filedocumented in this encounter
--- OUTSIDE RECORDS SUMMARY | 2025-05-09 15:25 | XMS_ITS | Encounter Summary ---
Author Organization [employer] ([place], [place], [place], [place], [place]) Address [address] [place] [address] Care Team Providers Care Electrical Foreman Name Role Phone Unavailable Primary Care Provider Unavailabl e Encounter Details Date Type Department Care Team (Late st Contact Info) Description 05/18/2019 Transcribed Document [facility] [place] [facility] [place] [address] MD [address] [place] [id number] Social History Tobacco Use Types Packs/Day Years Used Date Smoking Tobacco: Never Assessed Sex and Gender Information Value Date Recorded Sex Assigned at Not on file Legal Sex Male 5:19 PM CDT Gender Identity Not on file Sexual Orientation Not on file documented as of this encounter Miscellaneous Notes * Cerner Conversion Note - Historical ProviderMD - 05/18/2019 3:33 PM CLIENT REPORTING ASSOCIATE Patient: JOHNATHAN PARHAM Age: 63 years Sex: [...] GRAFT in 2004 at 50 Years. CHOLECYSTECTOMY ([id number]). CATARACT REMOVAL INSERTION OF LENS ([id number]). Right knee replacement. Hernia Repair. Carotid Endardectomy.. [...] reflux disease) History of obstructive sleep apnea [place] (hard of hearing) Hypertension . Physical Examination [...] Normal ventricular rate is 64 bpm. pr [id number] ms. Normal QTC. Sinus rhythm with no [...] % 26.0 % Lymph # 1.41 x10(3)/uL [place] % 8.3 % [place] # 0.45 K/uL Eos % 2.8 % Eos # 0.15 x10(3)/uL Baso % 0.6 % Baso # 0.03 x10(3)/uL Slide Review No IG# 0.02 x10(3)/uL IG% 0.40 % PT 10.0 Second(s) INR 1.0 PTT 26.8 Second(s) . Radiology results: Radiology Results (Last 48 hours) [id number] -- 05/18/2019 13:36 CR Chest 1 Vw [...] He does need to follow-up with his apparel patternmaker in 24 hours. He is have any [...]
--- OUTSIDE RECORDS SUMMARY | 2025-05-09 15:25 | XMS_ITS | Encounter Summary ---
Author Organization [employer] ([place], [place], [place], [place], [place]) Address [address] [place] [address] Care Team Providers Care Information Security Specialist Name Role Phone Unavailable Primary Care Provider Unavailabl e Encounter Details Date Type Department Care Team (Late st Contact Info) Description 05/18/2019 Transcribed Document [facility] [place] [address] [place] [address] ProviderEmilia MD [address], [place] [id number] Social History Tobacco Use Types Packs/Day Years Used Date Smoking Tobacco: Never Assessed Sex and Gender Information Value Date Recorded Sex Assigned at Not on file Legal Sex Male 5:19 PM CDT Gender Identity Not on file Sexual Orientation Not on file documented as of this encounter Miscellaneous Notes * Cerner Conversion Note - Historical ProviderMD - 05/18/2019 1:36 PM BIG DATA SOLUTIONS ARCHITECT [place] Suicide Severity Rating Scale (C-SSRS) Entered On: 05/18/2019 14:44 EST Performed On: 05/18/2019 14:42 EST by ERICA MONROY RN [place] Suicide Severity Rating Scale (C-SSRS) CSSRS Past [...]
--- OUTSIDE RECORDS SUMMARY | 2025-05-09 15:25 | XMS_ITS | Encounter Summary ---
Author Organization [employer] ([place], [place], [place], [place], [place]) Address [address] [place] [address] Care Team Providers Care Shipboard Intelligence Analyst Name Role Phone Unavailable Primary Care Provider Unavailabl e Encounter Details Date Type Department Care Team (Late st Contact Info) Description 05/18/2019 Transcribed Document [facility] [place] [facility] [place] [address] ProviderEmilia MD [address], [place] [address] Social History Tobacco Use Types Packs/Day Years Used Date Smoking Tobacco: Never Assessed Sex and Gender Information Value Date Recorded Sex Assigned at Not on file Legal Sex Male 5:19 PM CDT Gender Identity Not on file Sexual Orientation Not on file documented as of this encounter Miscellaneous Notes * Cerner Conversion Note - Historical ProviderMD - 05/18/2019 6:13 PM THEATRICAL TROUPER Electronically signed by Rehan [facility] Conversion Heating And Cooling Technician Cerner at 10/22/2022 11:11 PM CDT documented in this encounter Plan of Treatment Not on file documented as of this encounter Visit Diagnoses Not on filedocumented in this encounter
--- OUTSIDE RECORDS SUMMARY | 2025-05-09 15:25 | XMS_ITS | Clinical Summary ---
Author Organization [facility] Address [address] [id number] Care Team Providers Care Booster Operator Name Role Phone Kadie Chen MD Primary Care Provider [phone]- [phone] Allergies Active Allergy Reactions Criticality Noted Date [...] (03/27/2017): Added automatically from request for surgery [id number] Family History Medical History Relation Name Comments [...] Comments COLOGUARD 2002 COLON CANCER SCREENING 5 YEA R SIGMOIDOSCOPY 2002 COLONOSCOPY 2002 COL[address] CANCER SCREENING 2002 CT COLONOGRAPHY 2002 FECAL OCCULT BLOOD TEST 2002 FIT Testing (1 year) 2002 Pneumococcal Vaccine 50+ (1 of 1 - PCV) 2007 ZOSTER VACCINE (1 of 2) 2007 ANNUAL PHYSICAL 03/27/2017 HEPATITIS C SCREENING 03/27/2017 TDAP/TD VACCINES (4 - Tdap) 10/13/2020 04/0 03/2011, 10/13/2010, 10/07/2010, Additional history exists LIPID PANEL 05/16/2024 05/16/2023, 03/28/2017 INFLUENZA VACCINE 02/04/2025 COVID-19 Vaccine (1 - 2023-2 5 season) 2025 HEMOGLOBIN A1C Discontinued 06/13/2024, 05/0 07/2023, 08/09/2023, Additional history exists AAA SCREEN ONCE Completed 06/16/2024, 050 08/2023, 05/05/2023 Medical Devices Implanted Type Area Fashion Coordinator Device Identifier Shelf Expiration Date Model / Serial / Lot Linnea Obrien 1x6cm - [id number] Implanted:Qty: 1 on 06/24/2017 by Priyank Law MD at [facility] Implant Right: Carotid [employer] 10/28/2021 [id number] / / [id number] Procedures Procedure Name Priority Date/Time Associated Diagnosis Comments HEMOGLOBIN A1C Routine 2017 2:07 PM EST Stenosis of right carotid artery LIPID PANEL STAT 03/28/2017 7:38 AM EDT from Last 3 Months or Most Recently Relevant to Health Maintenance Results * (ABNORMAL) Hemoglobin A1c (2017 2:07 PM EST) Pathologist [facility] Hemoglobin A1C 7.50(H) 4.80 - 5.60 % 2017 2:47 PM EST [facility] Blood Venipuncture / Unknown 2017 2:07 PM EST 2017 2:21 PM EST Narrative [facility] - 2017 2:47 PM EST The [place] [employer] recommends maintenance of Hemoglobin A1C at 7.0% or lower. Goals for Hemoglobin A1C reduction may need to be modified if hypoglycemia is a problem. us Elzbieta MA LAB BLOOD ORDERABLES Final R esult [facility]
[address] [place] [address], * (ABNORMAL) Lipid Panel (03/28/2017 7:38 AM EDT) Total Cholesterol 141 0 - 200 mg/dL 03/28/2017 8:20 AM EDT [facility] Triglycerides 170(H) 0 - 150 mg/dL 03/28/2017 8:20 AM EDT [facility] HDL Cholesterol 27(L) 40 - 60 mg/dL 03/28/2017 8:20 AM EDT [facility] LDL Cholesterol 104 0 - 130 mg/dL 03/28/2017 8:20 AM EDT [facility] Blood Line / Unknown 03/28/2017 7: 38 AM EDT 03/28/2017 7:57 AM EDT [facility] - 03/28/2017 8:20 AM EDT [...] Rebolledo APRN LAB BLOOD ORDERABLES Final Result [facility]
[address] [place] [address], from Last 3 Months or Most Recently Relevant to Health Maintenance Insurance [employer] Advance Directives * Full Code (Latest Code Status on File) Date Activated Date Inactivated Comments 06/24/2017 12:16 PM 06/25/2017 2:32 PM Care Teams Booster Operator Relationship Specialty Start Date End Date Kadie Chen MD PCP - General Family Medicine 03/28/17
--- OUTSIDE RECORDS SUMMARY | 2025-05-09 15:25 | XMS_ITS | Encounter Summary ---
Author Organization [email or web address] ([place], [place], [place], [place], [place]) Address [address] [place] [address] Care Team Providers Care Visual Presentation Manager Name Role Phone Unavailable Primary Care Provider Unavailabl e Encounter Details Date Type Department Care Team (Late st Contact Info) Description 05/18/2019 Transcribed Document [facility] [place] [address] [place] [address] ProviderEmilia MD [address] [place] [phone] Social History Tobacco Use Types Packs/Day Years Used Date Smoking Tobacco: Never Assessed Sex and Gender Information Value Date Recorded Sex Assigned at Not on file Legal Sex Male 5:19 PM CDT Gender Identity Not on file Sexual Orientation Not on file documented as of this encounter Miscellaneous Notes * Cerner Conversion Note - Historical ProviderMD - 05/18/2019 4:07 PM DAUB COLOR MIXER CR Chest 1 Vw Portable Ordered: 05/18/2019 Modified Reason for Exam: Chest Pain 05/18/2019 15:58 05/18/2019 16:07 (JORDAN GOMES) No further action required documented in this encounter Plan of Treatment Not on file documented as of this encounter Visit Diagnoses Not on filedocumented in this encounter
--- OUTSIDE RECORDS SUMMARY | 2025-05-09 15:25 | XMS_ITS | Encounter Summary ---
Author Organization [employer] ([place], [place], [place], [place], [place]) Address [address] [place] [address] Care Team Providers Care Vending Machine Refiller Name Role Phone Unavailable Primary Care Provider Unavailabl e Encounter Details Date Type Department Care Team (Late st Contact Info) Description 05/18/2019 Transcribed Document [facility] [place] [address] [place] [address] ProviderEmilia MD [address] [place], [place] [phone] Social History Tobacco Use Types Packs/Day Years Used Date Smoking Tobacco: Never Assessed Sex and Gender Information Value Date Recorded Sex Assigned at Not on file Legal Sex Male 5:19 PM CDT Gender Identity Not on file Sexual Orientation Not on file documented as of this encounter Miscellaneous Notes * Cerner Conversion Note - Emilia ProviderMD - 05/18/2019 1:36 PM BUSINESS PLANNING DIRECTOR ED Assessment Entered On: 05/18/2019 14:43 EST [...] Communication Barrier : None Primary Language : Macedonian Any Spiritual/Cultural Needs or Requests : No [...] Rhythm : Regular Nail Bed Color : Valatie Chest Pain : Yes ERICA MONROY RN [...] - 05/18/2019 14:42 EST Electronically signed by Rehan [facility] Conversion Electric Motor Repairman Cerner at 10/22/2022 11:12 PM CDT documented in this encounter Plan of Treatment Not on file documented as of this encounter Visit Diagnoses Not on filedocumented in this encounter
--- OUTSIDE RECORDS SUMMARY | 2025-05-09 15:25 | XMS_ITS | Clinical Summary ---
Author Organization [employer] [facility] ([place], [place], [place], [place], [place]) Address [address] [place] [address] Care Team Providers Care Certified Professional Coder Name Role Phone Unavailable Primary Care Provider [...]
--- OUTSIDE RECORDS SUMMARY | 2025-05-09 15:26 | XMS_ITS | Encounter Summary ---
Author Organization [employer] ([place], [place], [place], [place], [place]) Address [address] [place] [address] Care Team Providers Care Supervisor Final Name Role Phone Unavailable Primary Care Provider Annie e Encounter Details Date Type Department Care Team (Late st Contact Info) Description 01/29/2019 Transcribed Document [facility] [place] [facility] [place] [address] ProviderEmilia MD [address], [place] [phone] Social History Tobacco Use Types Packs/Day Years [...] Level : No nutritional risk Lesvia Warner, Engineering Associate - 02/01/2019 10:16 EDT Electronically signed by Rehan, [facility] Conversion Make Ready Worker Cerner at 10/22/2022 11:01 PM CDT documented in this encounter Plan of Treatment Not on file documented as of this encounter Visit Diagnoses Not on filedocumented in this encounter
--- OUTSIDE RECORDS SUMMARY | 2025-05-09 15:26 | XMS_ITS | Encounter Summary ---
Author Organization [employer] ([place], [place], [place], [place], [place]) Address [address] [place] [address] Care Team Providers Care Supervisor Compounding And Finishing Name Role Phone Unavailable Primary Care Provider Unavailabl e Encounter Details Date Type Department Care Team (Late st Contact Info) Description 01/30/2019 Transcribed Document [facility] [address] [place] [address] MD [address], [place] [address] Social History Tobacco Use Types Packs/Day Years Used Date Smoking Tobacco: Never Assessed Sex and Gender Information Value Date Recorded Sex Assigned at Not on file Legal Sex Male 5:19 PM CDT Gender Identity Not on file Sexual Orientation Not on file documented as of this encounter Miscellaneous Notes * Cerner Conversion Note - Historical ProviderMD - 01/30/2019 2:57 PM CDT Patient: JOHNATHAN PARHAM Age: 63 years [...] History of obstructive sleep apnea / IMO [id number] / Confirmed, Active Problems (6) CKD (chronic kidney disease) Diabetes mellitus GERD (gastroesophageal reflux disease) History of obstructive sleep apnea [place] (hard of hearing) Hypertension Objective VS/Measurements Vitals Signs (last 24 hrs) Last Charted Minimum Maximum Temp 97.5 (JAN 30 11:00) 97.5 (JAN 30 11:00) 97.6 (JAN 29 21:47) Apical HR 68 (JAN 30 08:06) 68 (JAN 30 08:06) 74 (JAN 29 23:03) Mon HR 64 (JAN 30 11:00) 64 (JAN 30 11:00) 77 (JAN 29:31) Resp Rate 16 (JAN 30 11:00) 16 (JAN 30:00) 20 (JAN 29:47) SBP H 141 (JAN 30 11:00) 95 (JAN 29 23:31) H 158 (JAN 30 08:06) DBP 69 (JAN 30 11:00) L 59 (JAN 29:) 84 (JAN 29:47) MAP 86 (JAN 30 11:00) 71 (JAN 29:31) 97 (JAN 29:47) SpO2 [...]
--- OUTSIDE RECORDS SUMMARY | 2025-05-09 15:26 | XMS_ITS | Encounter Summary ---
Author Organization [employer] ([place], [place], [place], [place], [place]) Address [address] [place] [address] Care Team Providers Care Vegetable Grader Name Role Phone Unavailable Primary Care Provider Unavailabl e Encounter Details Date Type Department Care Team (Late st Contact Info) Description 02/01/2019 Transcribed Document [facility] [place] [address] [place] [address] ProviderEmilia MD [address], [place] [id number] Social History Tobacco Use Types Packs/Day Years Used Date Smoking Tobacco: Never Assessed Sex and Gender Information Value Date Recorded Sex Assigned at Not on file Legal Sex Male 5:19 PM CDT Gender Identity Not on file Sexual Orientation Not on file documented as of this encounter Miscellaneous Notes * Cerner Conversion Note - Historical ProviderMD - 02/01/2019 2:00 AM CDT Station Tender Details Entered On: 02/01/2019 4:35 EDT Performed [...]
--- OUTSIDE RECORDS SUMMARY | 2025-05-09 15:26 | XMS_ITS | Encounter Summary ---
Author Organization [employer] ([place], [place], [place], [place], [place]) Address [address] [place] [address] Care Team Providers Care Anti Tank Missileman Name Role Phone Unavailable Primary Care Provider Unavailabl e Encounter Details Date Type Department Care Team (Late st Contact Info) Description 01/29/2019 Transcribed Document [facility] [place] [address] [place] [address] ProviderEmilia MD [address], [place] [id number] Social History Tobacco Use Types Packs/Day Years Used Date Smoking Tobacco: Never Assessed Sex and Gender Information Value Date Recorded Sex Assigned at Not on file Legal Sex Male 5:19 PM CDT Gender Identity Not on file Sexual Orientation Not on file documented as of this encounter Miscellaneous Notes * Cerner Conversion Note - Historical ProviderMD - 01/29/2019 9:42 PM CDT Education-(VTE) [...] Ana Villeda Rn - 01/29/2019 22:48 EDT Electronically signed by Kiara Van Conversion Executive Vice President Business Development Cerner at 10/22/2022 11:10 PM CDT documented in this encounter Plan of Treatment Not on file documented as of this encounter Visit Diagnoses Not on filedocumented in this encounter
--- OUTSIDE RECORDS SUMMARY | 2025-05-09 15:26 | XMS_ITS | Encounter Summary ---
Author Organization [employer] ([place], [place], [place], [place], [place]) Address [address] [place] [address] Care Team Providers Care Detective Narcotics And Vice Name Role Phone Unavailable Primary Care Provider Unavailabl e Encounter Details Date Type Department Care Team (Late st Contact Info) Description 01/31/2019 Transcribed Document [facility] [place] [address] [place] [address] ProviderEmilia MD [address], [place] [id number] Social History Tobacco Use Types Packs/Day Years [...]
--- OUTSIDE RECORDS SUMMARY | 2025-05-09 15:26 | XMS_ITS | Encounter Summary ---
Author Organization [employer] ([place], [place], [place], [place], [place]) Address [address] [place] [address] Care Team Providers Care Medical Safety Director Name Role Phone Unavailable Primary Care Provider Unavailabl e Encounter Details Date Type Department Care Team (Late st Contact Info) Description 01/30/2019 Transcribed Document [facility] [place] [address] [place] [address] ProviderEmilia MD [address], [place] [id number] Social History Tobacco Use Types Packs/Day Years [...]
--- OUTSIDE RECORDS SUMMARY | 2025-05-09 15:26 | XMS_ITS | Encounter Summary ---
Author Organization [employer] ([place], [place], [place], [place], [place]) Address [address] [place] [address] Care Team Providers Care Water Supervisor Name Role Phone Unavailable Primary Care Provider Unavailabl e Encounter Details Date Type Department Care Team (Late st Contact Info) Description 02/01/2019 Transcribed Document [facility] [place] [facility] [place] [address] MD [address] [place] [address] Social History Tobacco Use Types Packs/Day Years [...] Morbid obesity. DISCHARGE INSTRUCTIONS: Diet: According to [place] [employer]. Activities: As tolerated. Followup appointment [...] chronic kidney disease, has been followed by communicable disease specialist. Recommended patient to follow up as [...]
--- OUTSIDE RECORDS SUMMARY | 2025-05-09 15:26 | XMS_ITS | Encounter Summary ---
Author Organization [employer] ([place], [place], [place], [place], [place]) Address [address] [place] [address] Care Team Providers Care Assembly Line Upholsterer Name Role Phone Unavailable Primary Care Provider Unavailabl e Encounter Details Date Type Department Care Team (Late st Contact Info) Description 01/31/2019 Transcribed Document [facility] Cardiology [address] [place] [phone] [place] [address] [place] [address] [address] [place] [address] Social History Tobacco Use Types [...] CKD (chronic kidney disease) / SNOMED CT 4631476108 / Confirmed Diabetes mellitus / SNOMED CT 525239947 / Confirmed GERD (gastroesophageal reflux disease) / SNOMED CT 719843007 / Confirmed [place] (hard of hearing) / SNOMED CT 45068490 / Confirmed History of obstructive sleep apnea / IMO 06108345 / Confirmed Hypertension / SNOMED CT 6781516845 / Confirmed, Active Problems (6) CKD (chronic kidney disease) Diabetes mellitus GERD (gastroesophageal reflux disease) History of obstructive sleep apnea [place] (hard of hearing) Hypertension Objective Intake and [...] 01/29/2019 23:10 Radiology Results (Last 48 hours) [id number] -- 01/29/2019 21:34 CR Chest 2 Vws [...] normal. a. Recent abnormal stress testing at [facility] 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 PLAN; 01/31/2019 Add amlodipine. If persitent HTN will increase Defer [place] I for now secondary to renal dysfunction Other Rx appropriate nephrology recs pending [facility] tomorrow if renal function stable. 01/30/2019 Continue aspirin/Plavix/rosuvastatin/coreg. Change home isosorbide dinitrate to him before 60 mg daily. Echocardiogram IV hydration DC [place] I Plan for [facility] once renal function stable. Consider nephrology evaluation documented in this encounter Plan of Treatment Not on file documented as of this encounter Visit Diagnoses Not on filedocumented in this encounter
--- OUTSIDE RECORDS SUMMARY | 2025-05-09 15:26 | XMS_ITS | Encounter Summary ---
Author Organization [employer] ([place], [place], [place], [place], [place]) Address [address] [place] [address] Care Team Providers Care Keeler Polygraph Operator Name Role Phone Unavailable Primary Care Provider Unavailabl e Encounter Details Date Type Department Care Team (Late st Contact Info) Description 01/30/2019 Transcribed Document [facility] Cardiology [address] [place] [phone] [place] [address] [place] [address] [address] [place] [address] Social History Tobacco Use Types [...] and diabetes mellitus type [address] [facility] with complaints of progressive chest pain with associated palpitations shortness of air and cough via [facility]. He unerwent stress testing at their facility [...] CKD (chronic kidney disease) / SNOMED CT 8645071308 / Confirmed Diabetes mellitus / SNOMED CT 579059378 / Confirmed GERD (gastroesophageal reflux disease) / SNOMED CT 657321927 / Confirmed [place] (hard of hearing) / SNOMED CT 03861648 / Confirmed History of obstructive sleep apnea / IMO 00876419 / Confirmed Hypertension / SNOMED CT 5979368313 / Confirmed Inactive: Arrhythmia / SNOMED CT 4066496258, Active Problems (6) CKD (chronic kidney disease) Diabetes mellitus GERD (gastroesophageal reflux disease) History of obstructive sleep apnea [place] (hard of hearing) Hypertension Histories No education [...] Procedure history: CORONARY ARTERY BYPASS GRAFT. CHOLECYSTECTOMY (50530). CATARACT REMOVAL INSERTION OF LENS (88817). Right knee replacement. Hernia Repair. Carotid Endardectomy. [...] (Current Encounter/Past 24 Hours) ProBNP 234 pg/mL MA 01/29/2019 23:10 Blood Gases (Current Encounter/Past 24 [...] DC [place] I Plan for [facility] once renal function stable. Consider nephrology evaluation documented in this encounter Plan of Treatment Not on file documented as of this encounter Visit Diagnoses Not on filedocumented in this encounter
--- OUTSIDE RECORDS SUMMARY | 2025-05-09 15:26 | XMS_ITS | Encounter Summary ---
Author Organization [email or web address] ([place], [place], [place], [place], [place]) Address [address] [place] [address] Care Team Providers Care Cash Surrender Calculator Name Role Phone Unavailable Primary Care Provider Unavailabl e Encounter Details Date Type Department Care Team (Late st Contact Info) Description 02/01/2019 Transcribed Document [facility] [place] [facility] [place] [address] MD [address] [place], [place] [phone] Social History Tobacco Use Types Packs/Day Years [...] History of obstructive sleep apnea / IMO 07725870 / Confirmed, Active Problems (6) CKD (chronic kidney disease) Diabetes mellitus GERD (gastroesophageal reflux disease) History of obstructive sleep apnea [place] (hard of hearing) Hypertension Objective VS/Measurements Vitals [...]
--- OUTSIDE RECORDS SUMMARY | 2025-05-09 15:26 | XMS_ITS | Encounter Summary ---
Author Organization [employer] ([place], [place], [place], [place], [place]) Address [address] [place] [address] Care Team Providers Care Tanker Truck Driver Name Role Phone Unavailable Primary Care Provider Unavailabl e Encounter Details Date Type Department Care Team (Late st Contact Info) Description 01/30/2019 Transcribed Document [facility] [place] [facility] [place] [address] ProviderEmilia MD [address] [place] [address] Social History Tobacco Use Types Packs/Day Years [...] has been evaluated there and transferred to [facility]. Patient came in, blood work done [...]
--- OUTSIDE RECORDS SUMMARY | 2025-05-09 15:26 | XMS_ITS | Encounter Summary ---
Author Organization [employer] ([place], [place], [place], [place], [place]) Address [address] [place] [address] Care Team Providers Care Seam Closer Name Role Phone Unavailable Primary Care Provider Unavailabl e Encounter Details Date Type Department Care Team (Late st Contact Info) Description 02/01/[address] [facility] [place] [facility] [place] [address] ProviderEmilia MD [address], [place] [phone] Social History Tobacco Use Types Packs/Day Years [...] Numbers : Insurance 1 Health Plan: [employer] Policy Number: [id number] Authorization Number: Insurance Primary Name : [employer] Policy Number: [id number] Authorization Status-Primary : Awaiting callback Authorized Service Begin Date-Primary : 01/29/2019 EDT Authorization Comments-Primary : rec'd call from Roque/caleb this am re: does not meet IP, did we want to change to OBS or have it routed to medical records secretary? Pt had heart cath planned for today, asked him to wait for outcome of C. Cath unremarkable per cards note, discussed case w/ DMc who requests leave as IP and have it routed to med director. Call back to Roque/caleb to request route to MD. Historical Authorization Comments-Primary : Comment 1: Received voice mail on main line from [facility] stating that pt OBS, not meeting for INPT and we need to send more clinical if we have any. # [phone] fx# [phone] Made Cayla De Jesus aware as she is following the patient today. (MALIHA DOSHI, [place] 02/01/2019 13:11) Comment 2: Per [facility] notes Notify Payer of Admission - InProgress - faxed clinicals via cerner. (MIRYAM KOTHARI RN 01/30/2019 13:46) CAYLA CHAU, RN-Utilization Review - 02/01/2019 14:35 EDT documented in this encounter Plan of Treatment Not on file documented as of this encounter Visit Diagnoses Not on filedocumented in this encounter
--- OUTSIDE RECORDS SUMMARY | 2025-05-09 15:26 | XMS_ITS | Encounter Summary ---
Author Organization [employer] ([place], [place], [place], [place], [place]) Address [address] [place] [address] Care Team Providers Care Tobacco Prevention Health Educator Name Role Phone Unavailable Primary Care Provider Unavailabl e Encounter Details Date Type Department Care Team (Late st Contact Info) Description 01/31/2019 Transcribed Document [facility] [place] [address] [place] [address] MD [address] [place], [place] [address] Social History Tobacco Use Types Packs/Day Years Used Date Smoking Tobacco: Never Assessed Sex and Gender Information Value Date Recorded Sex Assigned at Not on file Legal Sex Male 5:19 PM CDT Gender Identity Not on file Sexual Orientation Not on file documented as of this encounter Miscellaneous Notes * Cerner Conversion Note - Historical ProviderMD - 01/31/2019 7:30 AM CDT Patient: JOHNATHAN PARHAM Age: 63 [...] History of obstructive sleep apnea / IMO 84867830 / Confirmed, Active Problems (6) CKD (chronic kidney disease) Diabetes mellitus GERD (gastroesophageal reflux disease) History of obstructive sleep apnea [place] (hard of hearing) Hypertension Objective VS/Measurements Vitals [...] / 6.0 L 158 / 40.4 \ JOVAN 28 04:16 137 104 H 31 / H [...]
--- OUTSIDE RECORDS SUMMARY | 2025-05-09 15:26 | XMS_ITS | Encounter Summary ---
Author Organization [employer] ([place], [place], [place], [place], [place]) Address [address] [place] [address] Care Team Providers Care Barrel Scraper Name Role Phone Unavailable Primary Care Provider Unavailabl e Encounter Details Date Type Department Care Team (Late st Contact Info) Description 01/30/2019 Transcribed Document [facility] [place] [address] [place] [address] ProviderEmilia MD [address], [place] [phone] Social History Tobacco Use Types Packs/Day Years Used Date Smoking Tobacco: Never Assessed Sex and Gender Information Value Date Recorded Sex Assigned at Not on file Legal Sex Male 5:19 PM CDT Gender Identity Not on file Sexual Orientation Not on file documented as of this encounter Miscellaneous Notes * Cerner Conversion Note - Historical ProviderMD - 01/30/2019 2:00 AM CDT Sales Order Processor Details Entered On: 01/30/2019 2:21 EDT Performed [...]
--- OUTSIDE RECORDS SUMMARY | 2025-05-09 15:26 | XMS_ITS | Clinical Summary ---
Author Organization [facility] Address [address] [place] [address] Care Team Providers Care Security Public Safety Officer Name Role Phone Pcp, No Primary Care Provider UnavailAddison Ruggiero DO Unavailable [phone] Allergies Active Allergy Reactions Criticality Noted [...] UNIT/GM ointmentIndicatio ns:Diabetic foot ulcer with osteomyelitis Apply to wound daily 30 g 2 [...] if needed for pain. Active HYDROcodone-aceta minophen ([place]) 5-325 MG tablet Take 1 tablet (5 [...] 11/27/2023 Anemia 11/27/2023 Congestive heart failure 11/27/2023 Osteoarthritis of left hip 11/27/2023 Neuropathy 11/27/2023 Neoplasm of uncertain behavior of skin Microalbuminuria 11/27/2023 Finger laceration 11/27/2023 Radiculopathy 11/27/2023 Angina pectoris 11/27/2023 Vitamin D deficiency 11/27/2023 Sciatica, left side 11/27/2023 Sciatic leg pain 11/27/2023 Unstable angina 11/27/2023 Left hip pain 11/27/2023 LUKASZ (renal artery stenosis) 11/27/2023 Carotid artery stenosis 11/27/2023 Hypothyroidism 11/27/2023 Essential hypertension 11/27/2023 Hyperlipemia 11/27/2023 Chronic GERD 11/27/2023 Depression 11/27/2023 Diabetic foot ulcer with osteomyelitis Benign prostatic hyperplasia with lower urinary tract symptoms 11/13/2023 Insomnia, unspecified 11/13/2023 Other acute osteomyelitis, left ankle and foot 0 11/13/2023 Type 2 diabetes mellitus wit h diabetic neuropathy, unspecified 11/13/2023 Osteomyelitis of left ankle 11/05/2023 Ankle ulcer, left, with necrosis of muscle 11/02 Acute on chronic systolic heart failure 09/04/19 24 Pressure injury of skin of left heel 09/04/2023 Obesity (BMI 30.0-34.9) 09/04/2023 Awaiting admission to adequate facility elsewher e 07/15/2023 Severe obesity (BMI 35.0-39.9) with comorbidity 06/13/2023 Acute kidney injury (NEMO) with acute tubular nec rosis (ATN) 05/25/2023 Acute hemorrhage 05/25/2023 Hemorrhagic shock 05/25/2023 Sensorineural hearing loss 04/09/2023 Intra-abdominal hernia 08/22/2021 Ischemic cardiomyopathy 08/22/2021 Morbid obesity with body mass index (BMI) of 40. 0 or higher 08/22/2021 Renal insufficiency 06/24/2017 GERD (gastroesophageal reflux disease) 7 Bilateral carotid artery stenosis 05/14/2017 Abnormal stress test 03/27/2017 Overview (08/22/2021): Added automatically from request for surgery [id number] Calculus of gallbladder and bile duct 12/27/2013 Fatty liver 12/27/2013 Tear of lateral meniscus of knee, current 2013 Carotid stenosis, asymptomatic 03/25/2013 Bilateral renal artery stenosis 03/06/2013 Symptomatic bradycardia 02/25/2013 DANY (obstructive sleep apnea) 10/17/2012 Cerebrovascular accident (CVA) 08/15/2012 Stroke 08/15/2012 Hypothyroid 08/13/2012 Vertebrobasilar insufficiency 08/13/2012 Overview (08/22/2021): Abnormal carotid ultrasound Vertigo 08/13/2012 DM type 2 (diabetes mellitus, type 2) 08/13/2012 Arteriosclerosis of coronary artery 06/19/2012 Hyperlipidemia 06/19/2012 Hypertension 10/03/2010 Morbid obesity 10/03/2010 Mood disorder 08/03/2010 Posttraumatic stress disorder 08/03/2010 Resolved Problems Problem Noted Date Diagnosed Date Resolved Date Visual hallucinations 06/25/20242024 Septic arthritis 06/24/2024 07/11/2024 Delirium 06/24/2024 07/11/2024 Cough 11/27/2023 03/27/2025 COVID-19 11/27/2023 03/27/2025 Cyst of soft tissue 11/27/2023 03/27/20 25 Pneumonia 11/27/2023 03/27/2025 Acute bronchitis 11/27/2023 03/27/2025 Chronic pain of right knee 11/27/2023 0 03/27/2025 Chest pain 11/27/2023 03/27/2025 Pharyngitis 11/27/2023 03/27/2025 Bronchitis 11/27/2023 03/27/2025 Acute UTI 11/27/2023 03/27/2025 Chronic UTI (urinary tract infection) 11/27/2023 03/27/2025 Muscle weakness (generalized) 11/13/2023 03/27/2025 Urinary tract infection with hematuria 09/04/2023 03/27/2025 SOB (shortness of breath) 08/08/2023 High anion gap metabolic acidosis 05/25/2023 07/15/2023 Hyperkalemia 05/25/2023 07/15/2023 Hypernatremia 05/25/2023 07/15/2023 Retroperitoneal bleed 05/05/20232023 NSTEMI, initial episode of care 08/17/2018 03/27/2025 Acute on chronic kidney failure 06/25/2017 03/27/2025 Acute chest pain 06/19/2012 03/27/2025 Acute hypoxic respiratory failure 03/27/2025 Immunizations Immunization Administration Dates Next Due Influenza, [...] place to sleep or slept in a mcc (including now)? No 04/26/2024 PHQ-9 Answer Date [...] any time in the past 12 m [facility], were you homeless or living in a mcc (including now)? No 06/25/2024 CAGE ASSESSMENT Answer [...] drink first t alyx in the morning (EYE-PRODUCT MARKETING ANALYST) to steady your nerves or to get rid of a hangover? 0 06/25/2024 CAGE Questionnaire Score 0 024 Utilities Answer Date Recorded In the past 12 months has th e electric, gas, oil, or water company threatened to [...] Wellness (AWV) 1955 UKY-/Child/Adol SDOH Screenings 1955 [id number] Vaccine (#1) 1962 Diabetes: Dental Exam 1967 [...] this topic Medical Devices Implanted Type Area Deliverer Pharmacy Device Identifier Shelf Expiration Date Model / Serial / Lot Embolic Trufill 1 Gm N Bca Liq - [id number] Implanted:Qty: 1 on 05/06/2023 by Abdoulaye James MD at [facility] [id number] 08/06/2024 [id number] / / [id number] Vip Vascular Closure Device 6 Fr - [id number] Implanted:Qty: 1 on 05/06/2023 by Abdoulaye James MD at [facility] 1001 [id number] 12/12/2023 [id number] / / [id number] Puraply Am 6x9 54 Sq Cm - [id number] Implanted:Qty: 1 on 03/16/2024 by Syed Jefferson MD at [facility] [id number] 01/03/2026 PURAPLY-COM [id number] / / [id number]. 1C Procedures Procedure Name Priority Date/Time Associated Diagnosis Comments HEMOGLOBIN A1C Routine 06/25/2024 3:24 AM EST HEPATITIS C ANTIBODY - ED W/REFLEX TO HCV QUANT PCR STAT 06/24/2024 11:48 AM EST from Last 3 Months or Most Recently Relevant to Health Maintenance Results * Hemoglobin A1c (06/25/2024 3:24 AM EST) Hemoglobin A1c 4.8 <5.7 % 06/25/2024 3:52 AM EST [facility] Blood Venous blood specimen / Unknown Venipuncture / Unknown 06/25/2024 3:24 AM EST 06/25/2024 3:34 AM EST Narrative [facility] - 06/25/2024 3:52 AM EST HA1C Interpretive Data: Diagnosis of Diabetes: Diabetic > or = 6.5% Pre-diabetic 5.7 to 6.4% Non-diabetic < or = 5.6% Glycemic Targets for Type I and Type II Diabetics: Non- Adults <7.0% Adults <6.0% Children and Adolescents <7.5% Source: [place] Diabetes Association. Standards of medical care in diabetes,2017. Diabetes Care.2017:40 (suppl 1):S1-S135. HbA1c assay performed by an ion-exchange chromatography method that is certified traceable to the DCCT. us Huang Hubbard MD LAB BLOOD ORDERABLES Final Re sult Performing Organization Address City/[facility]/ZIP Co de Phone Number [facility] [address] [place] [address] * Hepatitis C Antibody - ED (06/24/2024 11:48 AM EST) Hepatitis C Antibody Negative Negative 06/24/2024 1:02 PM EST [facility] Blood Venous blood specimen / Unknown Venipuncture / Unknown 06/24/2024 11:48 AM EST 06/24/2024 12:16 PM EST us Craig MA LAB BLOOD ORDERABLES Final Res ult Performing Organization Address [facility] Co de Phone Number [facility] [address] [place] [address] from Last 3 Months or Most Recently [...] 11/05/2023 06/29/2024 C. difficile 07/05/2024 07/05/2024 Insurance [facility] MEDIC[facility] Advance Directives * Full [...] Patient has decision-making capacity? Yes Care Teams Security Public Safety Officer Relationship Specialty Start Date End Date Pcp, No [address] [place] [address] PCP - General Family Medicine 06/24/24 Addison Rizzo DO [address] [place] [address] 06/24/24
--- OUTSIDE RECORDS SUMMARY | 2025-05-09 15:26 | XMS_ITS | Encounter Summary ---
Author Organization [employer] ([place], [place], [place], [place], [place]) Address [address] [place] [address] Care Team Providers Care Carousel Operator Name Role Phone Unavailable Primary Care Provider Unavailabl e Encounter Details Date Type Department Care Team (Late st Contact Info) Description 01/30/2019 Transcribed Document [facility] [place] Family Medicine [address] [place] [address] ProviderEmilia MD [address] [place], [place] [id number] Social History Tobacco Use Types Packs/Day Years [...] Policy Numbers : Insurance 1 Health Plan: [employer] Policy Number: [id number] Authorization Number: Insurance Primary Name : [id number] Policy Number: [id number] Authorization Status-Primary : Awaiting callback Authorized Service Begin Date-Primary : 01/29/2019 EDT Authorization Comments-Primary : Per Star notes Notify Payer of Admission - InProgress - faxed clinicals via cerner. Historical Authorization Comments-Primary : No Authorization Comments Found MIRYAM KOTHARI RN - 01/30/2019 13:46 EDT Electronically signed by Kiara Van Conversion Senior Information Systems Architect [employer] at 10/22/2022 10:57 PM CDT documented in this encounter Plan of Treatment Not on file documented as of this encounter Visit Diagnoses Not on filedocumented in this encounter
--- OUTSIDE RECORDS SUMMARY | 2025-05-09 15:26 | XMS_ITS | Encounter Summary ---
Author Organization [employer] ([place], [place], [place], [place], [place]) Address [address] [place] [address] Care Team Providers Care Director Special Education Name Role Phone Unavailable Primary Care Provider Unavailabl e Encounter Details Date Type Department Care Team (Late st Contact Info) Description 02/01/2019 Transcribed Document [facility] [place] [address] [place] [address] ProviderEmilia MD [address] [place], [place] [id number] Social History Tobacco Use Types Packs/Day Years [...] Spiritual Care Spiritual Care Referred by : Control Equipment Electrician initiated Reason for Visit : Initial Ministry Provided to : Patient, Family/Significant other Intervention/Comment/Summary Points : 3 day visit with Johnathan and his . Religion Preference : Temple DANYEL NICHOLSON Chaplain - 02/01/2019 19:31 EDT documented in this encounter Plan of Treatment Not on file documented as of this encounter Visit Diagnoses Not on filedocumented in this encounter
--- OUTSIDE RECORDS SUMMARY | 2025-05-09 15:26 | XMS_ITS | Encounter Summary ---
Author Organization [facility] Address [address] [place] [address] Care Team Providers Care Manager Multimedia Name Role Phone Addison Rizzo DO Primary Care Provider [phone] Pcp, No Primary Care Provider Unavailabl e Addison Rizzo DO Unavailable [phone] Brooklyn Redmond BUS ATTENDANT Unavailable Unavailable Encounter Details Date Type Department Care Team (Late st Contact Info) Description 06/12/2024 Lab Requisition [facility] [address] [place] [address] Julien Matthews [address] [place] [address] Encounter for general adult medical [...] place to sleep or slept in a penitentiary (including now)? No 04/26/2024 PHQ-9 Answer Date [...] any time in the past [address] [facility] [place], were you homeless or living in a penitentiary (including now)? No 06/14/2024 CAGE ASSESSMENT Answer [...] drink first t alyx in the morning (EYE-PIN INSERTER) to steady your nerves or to get rid of a hangover? 0 09/05/2023 CAGE Questionnaire Score 0 024 Utilities Answer Date Recorded In the past 12 months has th e [employer], gas, oil, or water [employer] threatened to shut off services in your [...] LAB HEMATOLOGY METHOD 06/14/2024 5:35 PM EST [facility] Specimen Source, Body Fluid Synovial Fluid (type in source) LAB HEMATOLOGY METHOD 06/14/2024 5:35 PM EST [facility] Clinical Diagnosis, Body Fluid Pyogenic arthritis of left knee joint LAB HEMATOLOGY METHOD 06/14/2024 5:35 PM EST [facility] Interpretation , Body Fluid Acute inflammatory cells No pathogenic organisms seen Correlation with microbiology studies recommended Moderate blood A resident was involved in the service. I attest I examined the relevant preparations for the specimens and confirmed the diagnosis or interpretation. 06/14/2024 5:35 PM EST [facility] Pathologist Signature, Body Fluid 06/14/2024 5:35 PM EST [facility] Comment:Reviewed by: Salome thakur MD LAB CP ASR DISCLAIMER Yes 06/14/2024 5:35 PM EST [facility] Joint Fluid Synovial structure / Unknown 06/12/2024 5:00 PM EST 06/13/2024 5:02 AM EST Julien Matthews LAB BODY FLUIDS AND STOOLS ORDER VANESSA Final Result [facility] [address] [place] [address] * (ABNORMAL) Body Fluid Cell Count w/ Diff (06/12/2024 5:00 PM EST) Color, Body fluid Yellow LAB HEMATOLOGY METHOD 06/13/2024 8:26 AM EST [facility] Appearance, Body fluid Cloudy(A) LAB HEMATOLOGY METHOD 06/13/2024 8:26 AM EST [facility] Volume, Body fluid 4.0 cc LAB HEMATOLOGY METHOD 06/13/2024 8:26 AM EST [facility] Fluid Container Specimen received in miscellaneous container LAB HEMATOLOGY METHOD 06/13/2024 8:26 AM EST [facility] Red Blood Cell Count, Body fluid 10,000 uL LAB HEMATOLOGY METHOD 06/13/2024 8:26 AM EST [facility] Total Nucleated Cell Count, Body fluid >100,000 uL LAB HEMATOLOGY METHOD 06/13/2024 8:26 AM [facility] Neutrophils %, Body fluid 90 % LAB HEMATOLOGY METHOD 06/13/2024 8:26 AM EST [facility] Lymphocytes %, Body fluid 3 % LAB HEMATOLOGY METHOD 06/13/2024 8:26 AM EST [facility] Monocytes/Macr ophages %, Body fluid 7 % LAB HEMATOLOGY METHOD 06/13/2024 8:26 AM EST [facility] Eosinophils %, Body fluid 0 % LAB HEMATOLOGY METHOD 06/13/2024 8:26 AM [facility] Lining/Mesothe lial Cells %, Body fluid 0 % LAB HEMATOLOGY METHOD 06/13/2024 8:26 AM EST [facility] Neutrophils Absolute (PMN), Body fluid >90,000 uL LAB HEMATOLOGY METHOD 06/13/2024 8:26 AM EST [facility] Lymphocytes Absolute, Body fluid >3,000 uL LAB HEMATOLOGY METHOD 06/13/2024 8:26 AM [facility] Monocytes/Macr ophages Absolute, Body fluid >7,000 uL LAB HEMATOLOGY METHOD 06/13/2024 8:26 AM [facility] Eosinophils Absolute, Body fluid 0 uL LAB HEMATOLOGY METHOD 06/13/2024 8:26 AM [facility] Basophils Absolute, Body fluid 0 uL LAB HEMATOLOGY METHOD 06/13/2024 8:26 AM [facility] Lining/Mesothe lial Cells Absolute, Body fluid 0 uL LAB HEMATOLOGY METHOD 06/13/2024 8:26 AM [facility] Basophils %, Body fluid 0 % LAB HEMATOLOGY METHOD 06/13/2024 8:26 AM [facility] Joint Fluid Synovial structure / Unknown 06/12/2024 5:00 PM EST 06/13/2024 5:02 AM EST Julien Matthews LAB BODY FLUIDS AND STOOLS ORDERABLES NO SPECIMEN TYPE/SOURCE Final Result [facility] [address] [place] [address] * (ABNORMAL) Body Fluid Cell Count W/O Diff (06/12/2024 5:00 PM EST) Specimen Source, Body Fluid Synovial Fluid (type in source) 06/12/2024 8:21 PM EST [facility] Specimen Type Joint Fluid 06/12/2024 8:21 PM EST [facility] Color, Body fluid Yellow LAB HEMATOLOGY METHOD 06/12/2024 8:21 PM EST [facility] Appearance, Body fluid Cloudy(A) LAB HEMATOLOGY METHOD 06/12/2024 8:21 PM EST [facility] Volume, Body fluid 4.0 cc LAB HEMATOLOGY METHOD 06/12/2024 8:21 PM EST [facility] Red Blood Cell Count, Body fluid 10,000 uL LAB HEMATOLOGY METHOD 06/12/2024 8:21 PM EST [facility] Total Nucleated Cell Count, Body fluid >100,000 uL LAB HEMATOLOGY METHOD 06/12/2024 8:21 PM EST [facility] Fluid Container Specimen received in miscellaneous container LAB HEMATOLOGY METHOD 06/12/2024 8:21 PM EST [facility] Joint Fluid Synovial structure / Unknown 06/12/2024 5:00 PM EST 06/12/2024 7:43 PM EST Julien Matthews LAB BODY FLUIDS AND STOOLS ORDER VANESSA Final Result [facility] [address] [place] [address] * Joint Fluid Crystals (06/12/2024 5:00 PM EST) Crystals, Joint Fluid No Crystals Seen No Crystals Present 06/12/2024 11:03 PM EST [facility] Joint Fluid 06/12/2024 5:00 PM EST 06/12/2024 7:43 PM EST us Julien Matthews LAB BODY FLUIDS AND STOOLS ORDER VANESSA Final Result [facility] [address] [place] [address] documented in this encounter Visit Diagnoses Diagnosis [...] documented as of this encounter Care Teams Manager Multimedia Relationship Specialty Start Date End Date Addison Rizzo DO [address] [place] [id number] PCP - General 04/26/24 06/23/24 Pcp, [place] [address] PCP - General Family Medicine 06/24/24 Addison Rizzo DO [address] [place] [address] 06/24/24 Brooklyn Redmond LPN [employer] [address] TCM Nurse 06/23/24 07/23/24 documented as of this encounter
--- OUTSIDE RECORDS SUMMARY | 2025-05-09 15:26 | XMS_ITS | Encounter Summary ---
Author Organization [employer] ([place], [place], [place], [place], [place]) Address [address] [place] [address] Care Team Providers Care Manager Industrial Name Role Phone Unavailable Primary Care Provider Unavailabl e Encounter Details Date Type Department Care Team (Late st Contact Info) Description 01/31/2019 Transcribed Document [facility] [place] [address] [place] [address] ProviderEmilia MD [address] [place], [place] [phone] Social History Tobacco Use Types Packs/Day Years Used Date Smoking Tobacco: Never Assessed Sex and Gender Information Value Date Recorded Sex Assigned at Not on file Legal Sex Male 5:19 PM CDT Gender Identity Not on file Sexual Orientation Not on file documented as of this encounter Miscellaneous Notes * Cerner Conversion Note - Historical ProviderMD - 01/31/2019 2:00 AM CDT Production Grader Details Entered On: 01/31/2019 2:33 EDT Performed [...]
--- OUTSIDE RECORDS SUMMARY | 2025-05-09 15:26 | XMS_ITS | Encounter Summary ---
Author Organization [employer] ([place], [place], [place], [place], [place]) Address [address] [place] [address] Care Team Providers Care Plant Production Manager Name Role Phone Unavailable Primary Care Provider Unavailabl e Encounter Details Date Type Department Care Team (Late st Contact Info) Description 01/29/[address] [facility] [place] Family Medicine [facility] [address] ProviderEmilia MD [facility] [place], [place] [phone] Social History Tobacco Use Types Packs/Day Years [...] From : Emergency department Legal Guardian : post graduate intern Support Person/Patient Funeral Service Practitioner/Embalmer : No Want Family/Rep/Phys Notified of Admit : No Emergency Contact #1 : Samara Carey Emergency Contact #1 Emergency Contact #1 Relationship : Girlfriend Emergency Contact #2 : N/a Emergency Contact #2 Phone Number : N/a Emergency Contact #2 Relationship : N/a Information Obtained From : Patient Primary Language : Citizen [place] Preferred Communication Mode : Verbal Communication Barrier [...] Scale Risk Level : 0-24 Low Risk [place] Fall Interventions : Adequate lighting, Bed in [...] Source : Stated Height Entry Format : [place] Height, Feet : 6 ft(Converted to: 183 cm, 72 Inch) Height, Inches : 0 Inch(Converted to: 0 ft 0 Inch, 0.00 cm) Clinical Height : 182.88 cm Weight Source : Bed scale Weight Entry Format : [place] Clinical Dosing Weight : 135.91 kg Weight, Pounds : 299 lb Body Surface Area (BSA) : 2.53 m2 Body Mass Index : 40.6 kg/m2 (>HHI) [place] Body Weight : 77 kg Ana Villeda [...] Any Spiritual/Cultural Needs or Requests : No Alevism Preference : Hindu Ana Villeda Rn - 01/29/2019 22:41 EDT [...]
--- OUTSIDE RECORDS SUMMARY | 2025-05-09 15:26 | XMS_ITS | Encounter Summary ---
Author Organization [employer] ([place], [place], [place], [place], [place]) Address [address] [place] [address] Care Team Providers Care Administrative Services Manager Name Role Phone Unavailable Primary Care Provider Unavailabl e Encounter Details Date Type Department Care Team (Late st Contact Info) Description 01/31/2019 Transcribed Document [facility] [place] [facility] [place] [address] ProviderEmilia MD [address] [place] [id number] Social History Tobacco Use Types Packs/Day Years Used Date Smoking Tobacco: Never Assessed Sex and Gender Information Value Date Recorded Sex Assigned at Not on file Legal Sex Male 5:19 PM CDT Gender Identity Not on file Sexual Orientation Not on file documented as of this encounter Miscellaneous Notes * Cerner Conversion Note - Historical ProviderMD - 01/31/2019 12:39 PM CDT Patient: [...] and diabetes mellitus type 2 presented to [facility] with complaints of progressive chest [...] reflux disease) History of obstructive sleep apnea AGUA CALIENTE (hard of hearing) Hypertension Historical No qualifying [...] Lymph # 1.76 x10(3)/uL 01/31/2019 04:16 EDT [place] % 7.4 % 01/31/2019 04:16 EDT [place] # 0.45 K/uL 01/31/2019 04:16 EDT Eos % 2.6 % 01/31/2019 04:16 EDT Eos # 0.16 x10(3)/uL 01/31/2019 04:16 EDT Baso % 0.5 % 01/31/2019 04:16 EDT Baso # 0.03 x10(3)/uL 01/31/2019 04:16 EDT Slide Review No 01/31/2019 04:16 EDT IG# 0.02 x10(3)/uL 01/31/2019 04:16 EDT IG% 0.30 % 01/31/2019 04:16 EDT Electronically signed by [facility] Conversion Stereotype Finisher Cerner at 10/22/2022 10:57 PM CDT documented in this encounter Plan of Treatment Not on file documented as of this encounter Visit Diagnoses Not on filedocumented in this encounter
--- OUTSIDE RECORDS SUMMARY | 2025-05-09 15:26 | XMS_ITS | Encounter Summary ---
Author Organization [facility] Address [address] [place] [address] Care Team Providers Care Licensed Loan Officer Name Role Phone Bridgette Szymanski DO Primary Care Provider Elaina Carvalho PA Primary Care Provider Addison Rizzo DO Primary Care Provider Pcp, No Primary Care Provider Unavailabl e Addison Rizzo DO Unavailable [phone] Brooklyn Redmond CUSTOMER COUNTER ASSOCIATE Unavailable Unavailable Encounter Details Date Type Department Care Team (Late st Contact Info) Description 05/06/2023 Lab Requisition [facility] H Lab [address] [place] [address] Estefania Keller MD [address] [place] [address] Unspecified general medical examination Social [...] slept in a mcfp (including now)? No 05/08/2023 Utilities Answer Date Recorded In the past 12 months has th e [employer], gas, oil, or water company threatened to [...] Month) No 023 8:00 PM EDT Lissa Durant, TONIO 2. Non-Specific Active Suici kayce Thoughts (Past 1 Month) No 05/09/2023 8:00 PM EDT Lissa Durant , TONIO 6. Suicidal Behavior (Lifetime) No 3 8:00 PM EDT Lissa Durant, TONIO documented as of this encounter Plan of Treatment Not on file documented as of this encounter Procedures Procedure Name Priority Date/Time Associated Diagnosis Comments SOURCE, [facility] HCV QUANT PCR Routine 05/06/2023 11:10 AM EDT Unspecified general medical examination HC 418 HIV-1 AG W/COMB 1&2 AB Routine 05/06/2023 11:10 AM EDT Unspecified general medical examination SOURCE, [facility] HEPATITIS B S AG Routine 05/06/2023 11:10 AM EDT Unspecified general medical examination documented in this encounter Results * Source, [facility] HCV Quant PCR (05/06/2023 11:10 AM EDT) Hepatitis C Virus (HCV) Quantitative Interpretation Not Detected Not Detected . 05/08/2023 5:06 AM EDT LAB Hepatitis C Virus (HCV) Quantitative Viral Load Log Result <1.08 <1.08 log10 IU/mL 05/08/2023 5:06 AM EDT LAB Hepatitis C Virus (HCV) Quantitative IU/mL Result <12 <12 IU/mL 05/08/2023 5:06 AM EDT [facility] Blood Venous blood specimen / Unknown 05/06/2023 11:10 AM EDT 05/06/2023 11:38 AM EDT [facility] HEALTHCARE LAB - 05/08/2023 5:06 AM EDT [...] ORDERABLES Final Re sult Performing Organization Address [facility] Co de Phone Number LAB [address] [place] [address] * Source, [facility] Hepatitis B S AG (05/06/2023 11:10 AM EDT) Pathologist [facility] Hepatitis B Surf Antigen Negative Negative 05/06/2023 12:44 PM EDT HEALTHCARE LAB Blood Venous blood specimen / Unknown 05/06/2023 11:10 AM EDT 05/06/2023 11:38 AM EDT us Estefania Keller MD LAB BLOOD ORDERABLES Final Re sult Performing Organization Address [facility] de Phone Number LAB [address] [place] [address] * Source, [facility] HIV AB/AG w/Reflex to HIV1/2 Antibody Differentiation (05/06/2023 11:10 AM EDT) [facility] HIV 1 & 2 Antibody/Anti gen Screen Non Reactive Non Reactive 05/06/2023 12:44 PM EDT HEALTHCARE LAB Blood Venous blood specimen / Unknown 05/06/2023 11:10 AM EDT 05/06/2023 11:38 AM EDT us Estefania Keller MD LAB BLOOD ORDERABLES Final Re sult Performing Organization Address [facility] de Phone Number LAB [address] [place] [address] documented in this encounter Visit Diagnoses Diagnosis Unspecified general medical examination documented in this encounter Additional Health Concerns Infection Onset Date Last Indicated Resolved Time Respiratory Rule-Out 05/25/2023 05/25/202305/25/2 023 11:56 AM EST COVID-19 Rule-Out 08/06/2023 [...] documented as of this encounter Care Teams Licensed Loan Officer Relationship Specialty Start Date End Date Bridgette Szymanski DO [address] [place] [address] PCP - General 11/17/20 05/07/23 Elaina Carvalho PA [address] [place] [address] PCP - General 05/08/23 04/25/24 Addison Rizzo DO [address] [place] [address] PCP - General 04/26/24 06/23/24 Pcp, Akua [address] [place] [address] PCP - General Family Medicine 06/24/24 Addison Rizzo DO [address] [place] [address] 06/24/24 Brooklyn Redmond LPN VALUE-BASED [place] [address] TCM Nurse 06/23/24 07/23/24 documented as of this encounter
--- OUTSIDE RECORDS SUMMARY | 2025-05-09 15:26 | XMS_ITS | Referral Summary ---
Author Organization [employer] [facility] ([place], [place], [place], [place], [place]) Address [address] [place] [address] Care Team Providers Care State Director Name Role Phone Unavailable Primary Care [...]
--- OUTSIDE RECORDS SUMMARY | 2025-05-09 15:26 | XMS_ITS | Encounter Summary ---
Author Organization [employer] ([place], [place], [place], [place], [place]) Address [address] [place] [address] Care Team Providers Care Beauty School Instructor Name Role Phone Unavailable Primary Care Provider Unavailabl e Encounter Details Date Type Department Care Team (Late st Contact Info) Description 01/30/2019 Transcribed Document [facility] [place] Family Medicine [address] [place] [address] ProviderEmilia MD [address] [place], [place] [phone] Social History Tobacco Use Types Packs/Day Years [...] Non-Staff Physician Covering for Consult : SOFIA WNAG APRN Ayubu, Sara, SWAN - 01/30/2019 9:05 EDT documented in this encounter Plan of Treatment Not on file documented as of this encounter Visit Diagnoses Not on filedocumented in this encounter
--- OUTSIDE RECORDS SUMMARY | 2025-05-09 15:26 | XMS_ITS | Encounter Summary ---
Author Organization [employer] ([place], [place], [place], [place], [place]) Address [address] [place] [address] Care Team Providers Care Room Service Food Server Name Role Phone Unavailable Primary Care Provider Unavailabl e Encounter Details Date Type Department Care Team (Late st Contact Info) Description 01/30/2019 Transcribed Document [facility] [place] [address] [place] [address] ProviderEmilia MD [address] [place], [place] [phone] Social History Tobacco Use Types Packs/Day Years [...] Physician Requested for Consult : EDILBERTO MIRANDA MD-[facility] Provider Service Notified Name : Nephrology Physician [...]
--- OUTSIDE RECORDS SUMMARY | 2025-05-09 15:27 | XMS_ITS | Encounter Summary ---
Author Organization [employer] ([place], [place], [place], [place], [place]) Address [address] [place] [address] Care Team Providers Care Grey Roll Man Name Role Phone Unavailable Primary Care Provider Unavailabl e Encounter Details Date Type Department Care Team (Late st Contact Info) Description 02/02/2019 Transcribed Document [facility] [place] [address] [place] [address] ProviderEmilia MD [address] [place], [place] [phone] Social History Tobacco Use Types Packs/Day Years [...]
--- OUTSIDE RECORDS SUMMARY | 2025-05-09 15:27 | XMS_ITS | Encounter Summary ---
Author Organization [employer] ([place], [place], [place], [place], [place]) Address [address] [place] [address] Care Team Providers Care Custodian Name Role Phone Unavailable Primary Care Provider Unavailabl e Encounter Details Date Type Department Care Team (Late st Contact Info) Description 02/03/2019 Transcribed Document [facility] [place] [facility] [place] [address] ProviderEmilia MD [address] [place], [place] [phone] Social History Tobacco Use Types Packs/Day Years [...] Numbers : Insurance 1 Health Plan: [employer] Policy Number: [id number] Authorization Number: Insurance Primary Name : [employer] Policy Number: [id number] Authorization Status-Primary : Notification only Authorization Number-Primary : [id number] Authorized Service Begin Date-Primary : 01/29/2019 EDT Authorization Comments-Primary : Per call from Esperanza approved IP admission. Historical Authorization Comments-Primary : Comment 1: [facility] re: does not meet IP, did we want to change to OBS or have it routed to biomedical equipment tech? Pt had heart cath planned for today, asked him to wait for outcome of C. Cath unremarkable per cards note, discussed case w/ DMc who requests leave as IP and have it routed to med director. Call back to [facility] to request route to MD. (CAYLA CHAU, RN-Utilization Review 02/01/2019 14:35) Comment 2: Received voice mail on main line from Doris at [facility] stating that pt OBS, not meeting for INPT and we need to send more clinical if we have any. ph# [phone] fx# [phone] Made Cayla De Jesus aware as she is following the patient today. (MALIHA DOSHI, Test Lead Application Testing 02/01/2019 13:11) Comment 3: Per [facility] notes Notify Payer of Admission - InProgress - faxed clinicals via cerner. (MIRYAM KOTHARI RN 01/30/2019 13:46) MIRYAM KOTHARI RN - 02/03/2019 9:44 EDT documented in this encounter Plan of Treatment Not on file documented as of this encounter Visit Diagnoses Not on filedocumented in this encounter
--- OUTSIDE RECORDS SUMMARY | 2025-05-09 15:27 | XMS_ITS | Encounter Summary ---
Author Organization [employer] ([place], [place], [place], [place], [place]) Address [address] [place] [address] Care Team Providers Care Land Title Examiner Name Role Phone Unavailable Primary Care Provider Unavailabl e Encounter Details Date Type Department Care Team (Late st Contact Info) Description 02/01/2019 Transcribed Document [facility] [place] [address] [place] [address] ProviderEmilia MD [address] [place], [place] [phone] Social History Tobacco Use Types Packs/Day Years [...]
--- OUTSIDE RECORDS SUMMARY | 2025-05-09 15:27 | XMS_ITS | Encounter Summary ---
Author Organization [employer] ([place], [place], [place], [place], [place]) Address [address] [place] [address] Care Team Providers Care Net Sql Developer Name Role Phone Unavailable Primary Care Provider Unavailabl e Encounter Details Date Type Department Care Team (Late st Contact Info) Description 02/02/2019 Transcribed Document [facility] [place] Family Medicine [address] [place] [address] ProviderEmilia MD [address], [place] [address] Social History Tobacco Use Types Packs/Day Years Used Date Smoking Tobacco: Never Assessed Sex and Gender Information Value Date Recorded Sex Assigned at Not on file Legal Sex Male 5:19 PM CDT Gender Identity Not on file Sexual Orientation Not on file documented as of this encounter Miscellaneous Notes * Cerner Conversion Note - Historical ProviderMD - 02/02/2019 2:00 AM CDT Advertising Strategist Details Entered On: 02/02/2019 6:46 EDT Performed [...]
--- OUTSIDE RECORDS SUMMARY | 2025-05-09 15:27 | XMS_ITS | Encounter Summary ---
Author Organization [employer] ([place], [place], [place], [place], [place]) Address [address] [place] [address] Care Team Providers Care Structural Fitter Name Role Phone Unavailable Primary Care Provider Unavailabl e Encounter Details Date Type Department Care Team (Late st Contact Info) Description 02/02/2019 Transcribed Document [facility] [place] Family Medicine [address] [place] [address] ProviderEmilia MD [address], [place] [id number] Social History Tobacco Use Types Packs/Day Years [...]
--- OUTSIDE RECORDS SUMMARY | 2025-05-09 15:27 | XMS_ITS | Encounter Summary ---
Author Organization [employer] ([place], [place], [place], [place], [place]) Address [address] [place] [address] Care Team Providers Care Brake Operator Sheet Metal Name Role Phone Unavailable Primary Care Provider Unavailabl e Encounter Details Date Type Department Care Team (Late st Contact Info) Description 02/04/2019 Transcribed Document [facility] [place] Family Medicine [facility] [place] [address] ProviderEmilia MD [address], [place] [id number] Social History Tobacco Use Types Packs/Day Years [...]
--- OUTSIDE RECORDS SUMMARY | 2025-05-09 15:27 | XMS_ITS | Encounter Summary ---
Author Organization [employer] ([place], [place], [place], [place], [place]) Address [address] [place] [address] Care Team Providers Care Manager Mobility Name Role Phone Unavailable Primary Care Provider Unavailabl e Encounter Details Date Type Department Care Team (Late st Contact Info) Description 02/02/2019 Transcribed Document [facility] [place] Family Medicine [address] [place] [address] ProviderEmilia MD [address] [place] [address] Social History Tobacco Use Types Packs/Day Years Used Date Smoking Tobacco: Never Assessed Sex and Gender Information Value Date Recorded Sex Assigned at Not on file Legal Sex Male 5:19 PM CDT Gender Identity Not on file Sexual Orientation Not on file documented as of this encounter Miscellaneous Notes * Cerner Conversion Note - Emilia ProviderMD - 02/02/2019 12:42 PM CDT [facility] [place], [place] [address] JOHNATHAN COURTNEY :1955 Visit Time:01/29/2019 Your Visit Summary Your Care Team Admitting Physician - FIONA PECK MD-INT Attending Physician - FIONA PECK MD-INT Primary Care Physician - JUDITH BOSTON MD-[facility] Referring Physician - FIONA PECK MD-INT Your Diagnosis Other specified abnormal findings of blood chemistry, Other specified abnormal findings of blood chemistry Weakness Discharge Vitals Temperature 36.4 ??C Heart Rate (Monitored) 97 Respiratory Rate 16 Blood Pressure 167/83 What to do next Instructions From Your Care Team [facility] Address: [address] [place] [address] [place] [address] Please STOP taking Lisinopril Follow-Up Appointments Follow Up with [facility] When 02/04/2019 08:15 AM EDT Comments Appointment has been made with Chelsea MA. Please bring ID, insurance card and list of current medications. Where: [address] , [address] [place], [place] [phone] Follow Up with [facility] When In 6 weeks [...] parent to child (inherited). ??? Are of -Gabonese, , , , or descent. What are [...] by your health care provider. ??? Take hpgp-msj-ycncyvl and prescription medicines only as told by [...] 07/12/2008 Document Revised: 02/10/2018 Document Reviewed: 05/21/2017 [employer] Interactive Patient Education ?? 2019 Uniregistry. Chronic Kidney Disease, Adult Chronic kidney disease [...] these instructions at home: Medicines ??? Take fhpa-ebj-nbipsgs and prescription medicines only as told by [...] 09/17/2010 Document Revised: 07/28/2017 Document Reviewed: 07/28/2017 [employer] Interactive Patient Education ?? 2019 [employer] Inc. Carbohydrate Counting for Diabetes Mellitus, Adult [...] different for every person. A diet and armor reconnaissance specialist (registered dietitian) can help you make [...] of carbohydrates: ? hamburger bun or ?? Kiswahili muffin. ? oz (15 mL) syrup. ? [...] foods that contain carbohydrates: ??? Rice. ??? [place]. ??? Milk. ??? Strawberries. 2. Calculate how [...] manage your diabetes. ??? A diet and armor reconnaissance specialist (registered dietitian) can help you make a meal plan and calculate how many carbohydrates you should have at each meal and snack. This information is not intended to replace advice given to you by your health care provider. Make sure you discuss any questions you have with your health care provider. Document Released: 2006 Document Revised: 12/31/2017 Document Reviewed: 12/04/2016 Elsevier Interactive Patient Education ?? 2019 [employer] Jeans Network Inc. Diabetes Mellitus and Skin Care [...] (acanthosis nigricans). This typically affects people of -Gabonese and Gabonese-Maltese descent. ??? Red, raised, scar-like tissue that may itch, feel painful, or develop into a wound (necrobiosis lipoidica). ??? Blisters on feet, toes, hands, or fingers. ??? Thickened, wax-like areas of skin that usually occur on the hands, forehead, or toes (digital sclerosis). ??? Brown or red ring-shaped or znby-cqvu-fhidpj patches of skin on the ears or [...] 12/03/2016 Document Revised: 01/01/2018 Document Reviewed: 12/03/2016 [employer] Interactive Patient Education ?? 2019 [employer] Inc. Diabetes Mellitus and Nutrition, Adult [...] that you work with a diet and armor reconnaissance specialist (dietitian) to make a meal plan [...] provider. ??? Work with a counselor or consumer educator to identify strategies to manage stress and any emotional and social challenges. Questions to ask a health care provider ??? Do I need to meet with a consumer educator? Do I need to meet with a dietitian? What number can I call if I have questions? When are the best times to check my blood glucose? Where to find more information: ??? [place] Diabetes Association: diabetes.org ??? Academy of Nutrition and Dietetics: www.eatright.org ??? National [place] of Diabetes and Digestive and Kidney Diseases (NIH): www.niddk.nih.gov Summary ??? A healthy meal plan will help you control your blood glucose and maintain a healthy lifestyle. ??? Working with a diet and armor reconnaissance specialist (dietitian) can help you make a [...] 03/20/2006 Document Revised: 01/21/2018 Document Reviewed: 07/28/2017 [employer] Je[employer] Interactive Patient Education ?? 2019 Elsevier Inc. Hypertension Hypertension is another name for [...] doctor. This is important. Medicines ??? Take yoxz-pib-flqdsol and prescription medicines only as told by [...] 12/09/2008 Document Revised: 05/21/2017 Document Reviewed: 05/21/2017 [employer] Interactive Patient Education ?? 2019 [employer] Network Inc. Coronary Artery Disease, Male Coronary artery [...] these instructions at home: Medicines ??? Take yuaw-xxx-hnuklel and prescription medicines only as told by [...] 01/18/2015 Document Revised: 06/13/2017 Document Reviewed: 06/13/2017 [employer] Interactive Patient Education ?? 2019 Uniregistry. insulin isophane and insulin regular (IN horton [...] may report side effects to FDA at 8-659-HYP-6306. What other drugs will affect insulin isophane and insulin regular? This insulin may not work as well when you use other medicines at the same time. This includes prescription and sojx-mte-sflpobe medicines, vitamins, and herbal products. Some drugs [...] to ensure that the information provided by [employer]. ('[employer]') is accurate, up-to-date, and complete, but no guarantee is made to that effect. Drug information contained herein may be time sensitive. [employer] information has been compiled for use by healthcare practitioners and consumers in the [place] and therefore [employer] does not warrant that uses outside of the [place] are appropriate, unless specifically indicated otherwise. [employer]'s drug information does not endorse drugs, diagnose patients or recommend therapy. [employer] drug information is an informational resource designed [...] effective or appropriate for any given patient. [facility] does not assume any responsibility for any aspect of healthcare administered with the aid of information [facility] provides. The information contained herein is not intended to cover all possible uses, directions, precautions, warnings, drug interactions, allergic reactions, or adverse effects. If you have questions about the drugs you are taking, check with your doctor, nurse or pharmacist. Copyright 3307-3175 [employer]. Version: 8.01. Revision Date: 03/11/2018.hydralazine (dmitry payton) [...] may report side effects to FDA at 8-147-SZV-4771. What other drugs will affect hydralazine? Tell your doctor about all your current medicines and any you start or stop using, especially: ? diazoxide (an injectable blood pressure medication); or ?? an MAO inhibitor--isocarboxazid, linezolid, methylene blue injection, phenelzine, rasagiline, selegiline, tranylcypromine, and others. This list is not complete. Other drugs may interact with hydralazine, including prescription and cmxh-pvq-pcyxsln medicines, vitamins, and herbal products. Not all [...]
--- OUTSIDE RECORDS SUMMARY | 2025-05-09 15:27 | XMS_ITS | Encounter Summary ---
Author Organization [employer] ([place], [place], [place], [place], [place]) Address [address] [place] [address] Care Team Providers Care Shoes Hand Sewer Name Role Phone Unavailable Primary Care Provider Unavailabl e Encounter Details Date Type Department Care Team (Late st Contact Info) Description 02/02/2019 Transcribed Document [facility] [place] Family Medicine [facility] [place] [address] ProviderEmilia MD [address] [place], [place] [phone] Social History Tobacco Use Types Packs/Day Years Used Date Smoking Tobacco: Never Assessed Sex and Gender Information Value Date Recorded Sex Assigned at Not on file Legal Sex Male 5:19 PM CDT Gender Identity Not on file Sexual Orientation Not on file documented as of this encounter Miscellaneous Notes * Cerner Conversion Note - Historical ProviderMD - 02/02/2019 12:38 AM CDT Rapid [...] 40.6 kg/m2 Critical (01/29/19 22:48:00) Rapid Response Shoes Hand Sewer #1 : SHEREEN ZURITA V, RN SHEREEN ZURITA V RN - 02/02/2019 1:36 EDT documented in this encounter Plan of Treatment Not on file documented as of this encounter Visit Diagnoses Not on filedocumented in this encounter
--- OUTSIDE RECORDS SUMMARY | 2025-05-09 15:27 | XMS_ITS | Encounter Summary ---
Author Organization [employer] ([place], [place], [place], [place], [place]) Address [address] [place] [address] Care Team Providers Care Signal Tester Name Role Phone Unavailable Primary Care Provider Unavailabl e Encounter Details Date Type Department Care Team (Late st Contact Info) Description 02/01/2019 Transcribed Document [facility] [place] [address] [place] [address] ProviderEmilia MD [address], [place] [id number] Social History Tobacco Use Types Packs/Day Years Used Date Smoking Tobacco: Never Assessed Sex and Gender Information Value Date Recorded Sex Assigned at Not on file Legal Sex Male 5:19 PM CDT Gender Identity Not on file Sexual Orientation Not on file documented as of this encounter Miscellaneous Notes * Cerner Conversion Note - Historical ProviderMD - 02/01/2019 1:11 PM CDT UM Authorization Entered On: 02/01/2019 13:12 EDT Performed On: 02/01/2019 13:11 EDT by MALIHA DOSHI, Sales Clerk Supervisor Primary Insurance Authorization Authorization and Policy Numbers : Insurance 1 Health Plan: [employer] Policy Number: [id number] Authorization Number: Insurance Primary Name : [employer] Policy Number: [id number] Authorization Status-Primary : Awaiting callback Authorized Service Begin Date-Primary : 01/29/2019 EDT Authorization Comments-Primary : Received voice mail on main line from Doris hanson [facility] stating that pt OBS, not meeting for INPT and we need to send more clinical if we have any. # [phone] fx# [phone] Made Cayla De Jesus aware as she is following the patient today. Historical Authorization Comments-Primary : Comment 1: Per Star notes Notify Payer of Admission - InProgress - faxed clinicals via cerner. (MIRYAM KOTHARI RN 01/30/2019 13:46) MALIHA DOSHI, Sales Clerk Supervisor - 02/01/2019 13:11 EDT documented in this encounter Plan of Treatment Not on file documented as of this encounter Visit Diagnoses Not on filedocumented in this encounter
--- OUTSIDE RECORDS SUMMARY | 2025-05-09 15:27 | XMS_ITS | Encounter Summary ---
Author Organization [employer] ([place], [place], [place], [place], [place]) Address [address] [place] [address] Care Team Providers Care Dressing Machine Operator Name Role Phone Unavailable Primary Care Provider Unavailabl e Encounter Details Date Type Department Care Team (Late st Contact Info) Description 02/02/2019 Transcribed Document [facility] [place] Family Medicine [facility] [place] [address] ProviderEmilia MD [address] [place] [id number] Social History Tobacco Use Types Packs/Day Years [...] # 0.70 x10(3)/uL (Low) 02/02/2019 03:25 EDT Steele % 4.3 % 02/02/2019 03:25 EDT Steele # 0.35 K/uL 02/02/2019 03:25 EDT Eos [...]
--- OUTSIDE RECORDS SUMMARY | 2025-05-09 15:27 | XMS_ITS | Encounter Summary ---
Author Organization [employer] ([place], [place], [place], [place], [place]) Address [address] [place] [address] Care Team Providers Care Accountant Helper Name Role Phone Unavailable Primary Care Provider Unavailabl e Encounter Details Date Type Department Care Team (Late st Contact Info) Description 02/01/2019 Transcribed Document [facility] [place] Family Medicine [address] [place] [address] ProviderEmilia MD [address], [place] [phone] Social History Tobacco Use Types Packs/Day Years [...]
--- OUTSIDE RECORDS SUMMARY | 2025-05-09 15:27 | XMS_ITS | Encounter Summary ---
Author Organization [employer] ([place], [place], [place], [place], [place]) Address [address] [place] [address] Care Team Providers Care Armored Truck Driver Name Role Phone Unavailable Primary Care Provider Unavailabl e Encounter Details Date Type Department Care Team (Late st Contact Info) Description 05/18/2019 Transcribed Document [facility] [place] [facility] [place] [address] [place] [address] ProviderEmilia MD [address], [place] [address] Social History Tobacco Use Types Packs/Day Years Used Date Smoking Tobacco: Never Assessed Sex and Gender Information Value Date Recorded Sex Assigned at Not on file Legal Sex Male 5:19 PM CDT Gender Identity Not on file Sexual Orientation Not on file documented as of this encounter Miscellaneous Notes * Cerner Conversion Note - Historical ProviderMD - 05/18/2019 6:17 PM EDITOR & CO FOUNDER ED Discharge Entered On: 05/18/2019 18:17 EST [...]
--- OUTSIDE RECORDS SUMMARY | 2025-05-09 15:27 | XMS_ITS | Encounter Summary ---
Author Organization [employer] ([place], [place], [place], [place], [place]) Address [address] [place] [address] Care Team Providers Care Director Report Name Role Phone Unavailable Primary Care Provider Unavailabl e Encounter Details Date Type Department Care Team (Late st Contact Info) Description 05/18/2019 Transcribed Document [facility] [place] Family Medicine [address] [place] [address] MD [address] [place] [address] Social History Tobacco Use Types Packs/Day Years Used Date Smoking Tobacco: Never Assessed Sex and Gender Information Value Date Recorded Sex Assigned at Not on file Legal Sex Male 5:19 PM CDT Gender Identity Not on file Sexual Orientation Not on file documented as of this encounter Miscellaneous Notes * Cerner Conversion Note - Emilia St MD - 05/18/2019 6:16 PM [facility] [place], [place] [id number] JOHNATHAN PARHAM :1955 Visit Time:05/18/2019 Your Visit [...] Within 2 to 3 days Where: [address] [place] [address]- Business (1) Allergies Contrast Dye Immunizations This [...] range between ( 0.0 and 7.0 ) [place] #: 0.45 K/uL -- Normal range between ( 0.16 and 1.00 ) Eos #: 0.15 x10(3)/uL -- Normal range between ( 0.00 and 0.80 ) [place] %: 8.3 % -- Normal range between [...] these instructions at home: Medicines ??? Take mvkz-mxz-pfkeazl and prescription medicines only as told by [...] that you work with a diet and triage specialist (registered dietitian) to educate you about [...] 2006 Document Revised: 07/28/2017 Document Reviewed: 07/28/2017 [employer] Interactive Patient Education ?? 2019 NeuroPace Inc. Emergency Awareness and Preventative Care STROKE [...] Assistance with quitting is available by contacting 8-646-HBCKNOW. This is a free resource providing counseling, [...] was given the opportunity to ask questions. Patient/Interior Design Professor Name: Patient/Interior Design Professor Signature: Relationship to Patient: Clinician/Hospital Interior Design Professor Signature: Please Provide a Telephone Number Where You Can Be Reached: Is it Permissible To Leave a Message? Date: documented in this encounter Plan of Treatment Not on file documented as of this encounter Visit Diagnoses Not on filedocumented in this encounter
--- OUTSIDE RECORDS SUMMARY | 2025-05-09 15:27 | XMS_ITS | Encounter Summary ---
Author Organization [employer] ([place], [place], [place], [place], [place]) Address [address] [place] [address] Care Team Providers Care Manager Float Name Role Phone Unavailable Primary Care Provider Unavailabl e Encounter Details Date Type Department Care Team (Late st Contact Info) Description 02/02/2019 Transcribed Document [facility] [place] Family Medicine [address] [place] [address] ProviderEmilia MD [address] [place], [place] [id number] Social History Tobacco Use Types Packs/Day Years [...]
--- OUTSIDE RECORDS SUMMARY | 2025-05-09 15:27 | XMS_ITS | Encounter Summary ---
Author Organization [employer] ([place], [place], [place], [place], [place]) Address [address] [place] [address] Care Team Providers Care Patient Registration Representative Name Role Phone Unavailable Primary Care Provider Unavailabl e Encounter Details Date Type Department Care Team (Late st Contact Info) Description 05/18/[address] [facility] [place] Family Medicine [address] [place] [address] ProviderEmilia MD [address], [place] [phone] Social History Tobacco Use Types Packs/Day Years Used Date Smoking Tobacco: Never Assessed Sex and Gender Information Value Date Recorded Sex Assigned at Not on file Legal Sex Male 5:19 PM CDT Gender Identity Not on file Sexual Orientation Not on file documented as of this encounter Miscellaneous Notes * [employer]ner Conversion Note - Historical ProviderMD - 05/18/2019 2:22 PM BOX STACKER Pain Assessment Entered On: 05/18/2019 15:25 EST Performed On: 05/18/2019 15:25 EST by ERICA MONROY RN Intervention Information: morphine Performed by ERICA MONROY RN on 05/18/2019 14:38:00 EST morphine,4mg IV Push,Right Antecubit [place] Pain Assessment Pain Assessment : Follow-up assessment [...]
--- OUTSIDE RECORDS SUMMARY | 2025-05-09 15:27 | XMS_ITS | Encounter Summary ---
Author Organization [employer] ([place], [place], [place], [place], [place]) Address [address] [place] [address] Care Team Providers Care Boiler Shop Supervisor Name Role Phone Unavailable Primary Care Provider Unavailabl e Encounter Details Date Type Department Care Team (Late st Contact Info) Description 02/02/2019 Transcribed Document [facility] [place] [facility] [place] [address] ProviderEmilia MD [address] [place], [place] [phone] Social History Tobacco Use Types Packs/Day Years [...] Performed On: 02/02/2019 12:04 EDT by ANNETTE ENCARNACION, RN-Graphic Technician Final Discharge Planning Discharge Arrangements : Patient [...] : Yes Discharge To Care Management : Home/Residential/Correction or Self Care -01 ANNETTE ENCARNACION RN-Graphic Technician - 02/02/2019 12:04 EDT Final Narrative Note Final Narrative Note : pt discharge home with . appointment with restaurant assistant made on 02/04 at 0815, with ANIL Lopez. [address]. pt for dc with 70/30 insulin and [place] to f/u with pt's home rgiment of humalin and assistance with supplies and affordability. ANNETTE ENCARNACION RN-Graphic Technician - 02/02/2019 12:04 EDT documented in this encounter Plan of Treatment Not on file documented as of this encounter Visit Diagnoses Not on filedocumented in this encounter
--- OUTSIDE RECORDS SUMMARY | 2025-05-09 15:27 | XMS_ITS | Encounter Summary ---
Author Organization [employer] ([place], [place], [place], [place], [place]) Address [address] [place] [address] Care Team Providers Care Sample Processor Name Role Phone Unavailable Primary Care Provider Unavailabl e Encounter Details Date Type Department Care Team (Late st Contact Info) Description 02/02/2019 Transcribed Document [facility] [place] [facility] [place] [address] MD [address] [place], [place] [id number] Social History Tobacco Use Types Packs/Day Years [...] History of obstructive sleep apnea / IMO [id number] / Confirmed, Active Problems (6) CKD (chronic kidney disease) Diabetes mellitus GERD (gastroesophageal reflux disease) History of obstructive sleep apnea KAIBAB (hard of hearing) Hypertension Objective VS/Measurements Vitals [...]
--- OUTSIDE RECORDS SUMMARY | 2025-05-09 15:27 | XMS_ITS | Encounter Summary ---
Author Organization [employer] ([place], [place], [place], [place], [place]) Address [address] [place] [address] Care Team Providers Care Publications Writer Name Role Phone Unavailable Primary Care Provider Unavailabl e Encounter Details Date Type Department Care Team (Late st Contact Info) Description 02/01/2019 Transcribed Document [facility] Cardiology [address] [place] [id number] [place] [address] [place] [address] [address] [place] [address] Social History Tobacco Use Types [...] reflux disease) History of obstructive sleep apnea [place] (hard of hearing) Hypertension Objective Intake and [...] 24 Hours) Radiology Results (Last 48 hours) [id number] -- 01/29/2019 21:34 CR Chest 2 Vws [...] normal. a. Recent abnormal stress testing at [facility] 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 PLAN; 02/01/19 [facility] today unremarkable. Recommend tight BP control. NOthing further to add. Follow up with Dr Daily 2-3 weeks. Will sign off. 01/31/2019 Add amlodipine. If persitent HTN will increase Defer [place] I for now secondary to renal dysfunction Other Rx appropriate nephrology recs pending [facility] tomorrow if renal function stable. 01/30/2019 Continue aspirin/Plavix/rosuvastatin/coreg. Change home isosorbide dinitrate to him before 60 mg daily. Echocardiogram IV hydration DC [place] I Plan for [facility] once renal function stable. Consider nephrology evaluation documented in this encounter Plan of Treatment Not on file documented as of this encounter Visit Diagnoses Not on filedocumented in this encounter
--- OUTSIDE RECORDS SUMMARY | 2025-05-09 15:27 | XMS_ITS | Encounter Summary ---
Author Organization [employer] ([place], [place], [place], [place], [place]) Address [address] [place] [address] Care Team Providers Care Medical Coding Instructor Name Role Phone Unavailable Primary Care Provider Unavailabl e Encounter Details Date Type Department Care Team (Late st Contact Info) Description 02/01/2019 Transcribed Document [facility] [place] [address] [place] [address] ProviderEmilia MD [address], [place] [phone] Social History Tobacco Use Types Packs/Day Years [...]
--- OUTSIDE RECORDS SUMMARY | 2025-05-09 15:27 | XMS_ITS | Encounter Summary ---
Author Organization [employer] ([place], [place], [place], [place], [place]) Address [address] [place] [address] Care Team Providers Care Prototype Machinist Name Role Phone Unavailable Primary Care Provider Unavailabl e Encounter Details Date Type Department Care Team (Late st Contact Info) Description 02/02/2019 Transcribed Document [facility] [place] [facility] [address] [place] [address] Emilia tS MD [address], [place] [id number] Social History Tobacco Use Types Packs/Day Years [...] cause a heart attack (myocardial infarction or [place]). This condition may also be called coronary [...] these instructions at home: Medicines ??? Take tjoj-hgs-aavjwde and prescription medicines only as told by [...] 01/18/2015 Document Revised: 06/13/2017 Document Reviewed: 06/13/2017 [employer] Patient Education ? 2019 [employer] Endocrinology Carbohydrate Counting for Diabetes Mellitus, [...] different for every person. A diet and nutritionist public health (registered dietitian) can help you make a [...] of carbohydrates: ? hamburger bun or ? Yoruba muffin. ? oz (15 mL) syrup. ? [...] foods that contain carbohydrates: ??? Rice. ??? [place]. ??? Milk. ??? Strawberries. 2. Calculate how [...] manage your diabetes. ??? A diet and nutritionist public health (registered dietitian) can help you make a meal plan and calculate how many carbohydrates you should have at each meal and snack. This information is not intended to replace advice given to you by your health care provider. Make sure you discuss any questions you have with your health care provider. Document Released: 2006 Document Revised: 12/31/2017 Document Reviewed: 12/04/2016 [employer] Patient Education ? 2019 [employer] Diabetes Mellitus and Skin Care Diabetes [...] (acanthosis nigricans). This typically affects people of -[place] and [place]- descent. ??? Red, raised, scar-like tissue that may itch, feel painful, or develop into a wound (necrobiosis lipoidica). ??? Blisters on feet, toes, hands, or fingers. ??? Thickened, wax-like areas of skin that usually occur on the hands, forehead, or toes (digital sclerosis). ??? Brown or red ring-shaped or prfp-hnfo-oszhzw patches of skin on the ears or [...] 12/03/2016 Document Revised: 01/01/2018 Document Reviewed: 12/03/2016 [employer] Patient Education ? 2019 [employer] Diabetes Mellitus and Nutrition, Adult When [...] that you work with a diet and nutritionist public health (dietitian) to make a meal plan that [...] provider. ??? Work with a counselor or early childhood educator aide to identify strategies to manage stress and any emotional and social challenges. Questions to ask a health care provider ??? Do I need to meet with a early childhood educator aide? Do I need to meet with a dietitian? What number can I call if I have questions? When are the best times to check my blood glucose? Where to find more information: ??? [place] [employer]: diabetes.org ??? Academy of Nutrition and Dietetics: www.eatright.org ??? National [place] of Diabetes and Digestive and Kidney Diseases (NIH): www.niddk.nih.gov Summary ??? A healthy meal plan will help you control your blood glucose and maintain a healthy lifestyle. ??? Working with a diet and nutritionist public health (dietitian) can help you make a meal [...] 03/20/2006 Document Revised: 01/21/2018 Document Reviewed: 07/28/2017 [employer] Patient Education ? 2019 [employer]. Nephrology Diabetic Nephropathy Diabetic nephropathy is kidney [...] parent to child (inherited). ??? Are of -[place], , , , or descent. What are [...] by your health care provider. ??? Take moij-nuw-zalibuh and prescription medicines only as told by [...] 07/12/2008 Document Revised: 02/10/2018 Document Reviewed: 05/21/2017 [employer] Patient Education ? 2019 [employer]. Chronic Kidney Disease, Adult Chronic kidney disease [...] these instructions at home: Medicines ??? Take iqxl-yeo-jzuhgso and prescription medicines only as told by [...] 09/17/2010 Document Revised: 07/28/2017 Document Reviewed: 07/28/2017 [employer] Patient Education ? 2019 [employer] Hypertension Hypertension is another name for [...] doctor. This is important. Medicines ??? Take asll-kkk-qpbazkh and prescription medicines only as told by [...] 12/09/2008 Document Revised: 05/21/2017 Document Reviewed: 05/21/2017 [employer] Patient Education ? 2019 [employer] documented in this encounter Plan of Treatment Not on file documented as of this encounter Visit Diagnoses Not on filedocumented in this encounter
--- OUTSIDE RECORDS SUMMARY | 2025-05-09 15:27 | XMS_ITS | Encounter Summary ---
Author Organization [employer] ([place], [place], [place], [place], [place]) Address [address] [place] [address] Care Team Providers Care Toll Collector Name Role Phone Unavailable Primary Care Provider Unavailabl e Encounter Details Date Type Department Care Team (Late st Contact Info) Description 02/01/2019 Transcribed Document [facility] [place] [facility] [place] [address] ProviderEmilia MD [address] [place] [phone] Social History Tobacco Use Types Packs/Day Years [...] 76 mg/dL 01/31/2019 14:02 EDT Protein Ur [place] 14 mg/dL 01/31/2019 14:02 EDT WBC 5.9 [...] Lymph # 1.47 x10(3)/uL 02/01/2019 05:17 EDT Ocean % 7.9 % 02/01/2019 05:17 EDT Ocean # 0.47 K/uL 02/01/2019 05:17 EDT Eos [...]
--- NOTE | 2025-05-09 16:12 | ED_ITS ---
<Statement entered by Jerry Milian MD - 05/09/25 22:23> I was consulted by the STEVEN, and we discussed the complexity of the problems being addressed. I approve the treatment and management plan for this patient's care in the emergency department, thus performing a substantive portion of the medical decision making. Jerry Milian MD Discharge Plan Disposition Patient Disposition: Home, Self-Care Condition: Good Prescriptions Prescriptions: New clindamycin HCl 150 mg capsule 450 mg PO Q8H 5 Days Qty: 45 0RF No Action (DME) blood-glucose meter Misc See Rx Instructions .Route Qty: 1 0RF Rx Instructions: As directed (DME) Blood Glucose Test Strip See Rx Instructions .Route Qty: 50 12RF Rx Instructions: As directed trazodone 150 mg tablet 150 mg PO HS PRN (Reason: sleep) Qty: 90 3RF aspirin 81 mg tablet 81 mg PO DAILY Qty: 90 3RF levothyroxine 75 mcg tablet See Rx Instructions .ROUTE .COMPLEX Qty: 90 1RF Dose Instruction: Take 1 tablet by mouth once daily Rx Instructions: Take 1 tablet by mouth once daily doxazosin 4 mg tablet 4 mg PO DAILY Qty: 90 1RF atorvastatin 80 mg tablet See Rx Instructions .ROUTE .COMPLEX Qty: 90 1RF Dose Instruction: Take 1 tablet by mouth once daily Rx Instructions: Take 1 tablet by mouth once daily omeprazole 40 mg capsule,delayed release(DR/EC) See Rx Instructions .ROUTE .COMPLEX Qty: 90 4RF Dose Instruction: Take 1 capsule by mouth once daily Rx Instructions: Take 1 capsule by mouth once daily carvedilol 12.5 mg tablet See Rx Instructions .ROUTE .COMPLEX Qty: 180 3RF Dose Instruction: TAKE 1 TABLET TWICE DAILY Rx Instructions: TAKE 1 TABLET TWICE DAILY clopidogrel 75 mg tablet See Rx Instructions .ROUTE .COMPLEX Qty: 90 3RF Dose Instruction: TAKE 1 TABLET EVERY DAY Rx Instructions: TAKE 1 TABLET EVERY DAY finasteride 5 mg tablet See Rx Instructions .ROUTE .COMPLEX Qty: 90 2RF Dose Instruction: Take 1 tablet by mouth once daily Rx Instructions: Take 1 tablet by mouth once daily lisinopril 2.5 mg tablet See Rx Instructions .ROUTE .COMPLEX Qty: 90 1RF Dose Instruction: Take 1 tablet by mouth once daily Rx Instructions: Take 1 tablet by mouth once daily furosemide 40 mg tablet 40 mg PO DAILY PRN (Reason: edema) Qty: 60 0RF Rx Instructions: May take one-two tabs daily as needed. hydrocodone-acetaminophen 5-325 mg tablet 1 tab PO Q12H PRN (Reason: pain) Qty: 60 0RF duloxetine 20 mg capsule,delayed release(DR/EC) 20 mg PO DAILY 30 Days Qty: 30 2RF Referrals Follow up/Referrals: Reuben Haro APRN [Primary Care Provider, Family Practice] - See instructions Jordan Carver MD [Staff Physician, Cardiology] - See instructions Activity Restrictions/Add. Instructions Additional Instructions/Restrictions: Please return to the emergency department with any worsening signs or symptoms, please follow-up with wound care in the upcoming days, please follow-up with lmft in the upcoming days. Please take your medication as prescribed 3 times daily with food for 5 days. Please monitor for any worsening signs or symptoms. Clinical Impressions Clinical Impression: Cellulitis of right lower extremity, Chronic skin ulcer of ankle Instructions Patient Instructions: DI for Cellulitis in Adults Print Language Print Language: Korean Discharge ED Provider: Jerry Milian General Adult HPI <ANIL Roque - Last Filed: 05/09/25 20:27> General Chief complaint: Extremity Injury, Lower Stated complaint: sores on both feet and ankles Time Seen by Provider: 05/09/25 16:12 Mode of Arrival: Ambulatory Source of Information: Patient and Spouse Description of Symptoms (Recalled from ER Triage Doc. by RN): Pt has had sores on his feet for going on two years now. Pt noticed around 4 days ago increased redness and swelling in his right foot. Pt states he noticed about 2 days ago the sore on his right foot started opening and draining yellow/clear fluid. Pt and pt are concerned for infection due to experience in the past with picc line abx History of Present Illness HPI narrative: 69-year-old male presents to the emergency department accompanied by his at the request of his PCPs office for 2-day history of right lower extremity swelling pain and redness, patient states he saw a primary care office today who advised him to come to the emergency department for blood work and stuff . 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 Please note that above description of symptoms, in this electronic medical record under categorization of recalled from ER triage doctor by RN are reflective of an initial nursing assessment, however, is not reflective of my full history and physical exam that was personally taken and clarified. Consequentially, this preceding description of symptoms, which may include the patient's categorized chief complaint in the EMR, do not reflect my personal clinical impression, and the ultimate description of history of present illness and patient stated complaints should be deferred to this section of the note. Unless stated otherwise or congruent with this section of the note, additional signs, symptoms, or incongruence should be interpreted as inaccurate with my clinical impression. Onset (ago): day(s) Related Data Previous Rx's ?Medication ?Instructions ?Recorded doxazosin 4 mg tablet 4 mg PO DAILY #90 tabs 03/17 atorvastatin 80 mg tablet See Rx Instructions .Route 0 07/20/24 .COMPLEX #90 tabs levothyroxine 75 mcg tablet See Rx Instructions .Route 08/09/24 .COMPLEX #90 tabs omeprazole 40 mg capsule,delayed See Rx Instructions . Route 11/23/24 release .COMPLEX #90 caps carvedilol 12.5 mg tablet See Rx Instructions .Route 0 12/17/24 .COMPLEX #180 tabs clopidogrel 75 mg tablet See Rx Instructions .Route 0 12/20/24 .COMPLEX #90 tabs finasteride 5 mg tablet See Rx Instructions .Route 0 12/30/24 .COMPLEX #90 tabs blood sugar diagnostic (Blood #50 ea 01/03/25 Glucose Test strips) blood-glucose meter #1 ea 01/03/25 trazodone 150 mg tablet 150 mg PO HS PRN sleep #90 t abs 01/03/25 aspirin 81 mg tablet 81 mg PO DAILY #90 tabs 01/05 03/31 lisinopril 2.5 mg tablet See Rx Instructions .Route 0 02/09/25 .COMPLEX #90 tabs furosemide 40 mg tablet 40 mg PO DAILY PRN edema #60 tabs 02/22/25 duloxetine 20 mg capsule,delayed 20 mg PO DAILY 30 day s #30 caps 04/19/25 release hydrocodone 5 mg-acetaminophen 325 1 tab PO Q12H PRN p ain #60 tabs 04/19/25 mg tablet clindamycin HCl 150 mg capsule 450 mg (3 x 150 mg) PO Q8H 5 days 05/09/25 #45 caps Allergies Allergy/AdvReac Type Severity Reaction Status Date / Time ertapenem Allergy Severe Hallucinati Verified 04/25/25 13:16 ng [facility] <ANIL Roque - Last Filed: 05/09/25 20:27> [facility] Disclaimer: The information contained in this section may have been updated after the patient was seen, as this information can be updated by other users. Medical History Abnormal ECG CVA (cerebral vascular accident) left temporal--2022 Screening for colon cancer patient states had colonoscopy ~2019 with normal findings History of stent insertion of renal artery Septic arthritis of knee, left Renal mass, left Left adrenal mass Renal mass, right Unsteadiness on feet DANY (obstructive sleep apnea) LUKASZ (renal artery stenosis) Right sided weakness Angina pectoris Hearing loss Cataract History of transient ischemic attack (TIA) Cyst of soft tissue Carotid artery stenosis Left hip pain Neuropathy Sciatic leg pain Surgical History Hx of CABG History of hernia repair Hx of heart artery stent History of cholecystectomy HX of R carotid artery surgery History of colonoscopy Family History Other Family history of acute congestive heart failure Social History Smoking Status: Never smoker alcohol intake: never substance use type: denies use current occupational status: other Travel in the last 8 weeks?: None household members: family housing: house current occupational exposures/hazards: No caffeine: Yes Have you lived/traveled outside [place] in past 30 days?: No Contact w/someone who lives/traveled outside US past 30 days?: No Exposure to someone with infectious disease in past 14 days?: No Do you have a fever (greater than 100.4 F or 38 C)?: No Have you tested positive for COVID-19?: No Exposed to someone with COVID-19 in past 14 days?: No Do you have a sore throat?: No Do you have a cough?: No Do you have any weakness?: No Do you have any diarrhea?: No Are you experiencing any unusual bleeding?: No Do you have any muscle aches/pain?: No Do you have any abdominal pain?: No Are you experiencing loss of taste or smell?: No Other Medical History Have you received the Flu Vaccine for this season: No Have you received the Pneumonia Vaccine: No <ANIL Roque - Last Filed: 05/09/25 20:27> ROS Obtained: Yes All systems reviewed & no additional complaints except as documented Physical Exam <ANIL Roque - Last Filed: 05/09/25 20:27> General General appearance: alert and in no apparent distress Head Head exam: atraumatic and normocephalic Eye Eye exam: Present PERRL and EOMI ENT ENT exam: Present mucous membranes moist Neck Neck exam: Present normal inspection Chest Chest inspection: Present normal inspection and symmetric chest wall rise Respiratory Respiratory exam: Present normal lung sounds bilaterally; Absent respiratory distress Cardiovascular Cardiovascular exam: Present regular rate and normal rhythm Abdominal Exam Abdominal exam: Present soft; Absent tenderness, guarding or rebound Extremities Exam Extremities exam: Present normal inspection Neurological Exam Neurological exam: Present alert and oriented X3 Psychiatric Psychiatric exam: Present normal affect Skin Skin exam: Present warm, dry, erythema and other (Mild soft tissue edema of the right lower extremity, appears to be a chronic wound looks like arterial ulcer bilaterally, right worse than left with erythema noted on the right, no erythema on the left, no active drainage or wound dehiscence noted bilaterally, otherwise neurovascular intact.) Medical Decision Making <ANIL Roque - Last Filed: 05/09/25 20:27> Medical Records Medical records reviewed: Yes I reviewed the patient's medical records. Screening: Per USPSTF and CDC recommendations, given the prevalence of disease in our region, it is our hospital?s policy to screen for HIV and viral Hepatitis for all patients aged 18 and over and those with ongoing risk factors. Harman Inquiry Pt receiving controlled substance: No Harman was queried for this patient: No Vital Signs: 05/09/25 15:12 05/09/25 15:17 05/09/25 16:33 Temperature 97.5 F L Temperature Source Temporal Artery Scan Pulse Rate 70 74 Pulse Rate [Right] 74 Respiratory Rate 20 20 Blood Pressure 120/70 166/82 H Blood Pressure [Right Arm] 117/72 Blood Pressure Mean Blood Pressure Mean [Right Arm] 87 Blood Pressure Source Automatic Cuff Blood Pressure Source [Right Arm] Automatic Cuff Blood Pressure Position Sitting Blood Pressure Position [Right Arm] Sitting 02 Sat by Pulse Oximetry 97 96 98 Oxygen Delivery Method Room Air Room Air 05/09/25 17:00 05/09/25 17:30 05/09/25 18:00 Temperature Temperature Source Pulse Rate 69 66 73 Pulse Rate [Right] Respiratory Rate Blood Pressure 170/86 H 166/82 H 160/96 H Blood Pressure [Right Arm] Blood Pressure Mean Blood Pressure Mean [Right Arm] Blood Pressure Source Blood Pressure Source [Right Arm] Blood Pressure Position Blood Pressure Position [Right Arm] 02 Sat by Pulse Oximetry 98 98 98 Oxygen Delivery Method 05/09/25 18:30 05/09/25 19:00 05/09/25 20:01 Temperature Temperature Source Pulse Rate 73 78 71 Pulse Rate [Right] Respiratory Rate Blood Pressure 150/81 H 148/92 H 179/89 H Blood Pressure [Right Arm] Blood Pressure Mean 119 Blood Pressure Mean [Right Arm] Blood Pressure Source Blood Pressure Source [Right Arm] Blood Pressure Position Blood Pressure Position [Right Arm] 02 Sat by Pulse Oximetry 97 98 98 Oxygen Delivery Method Lab Data Lab results reviewed: Yes I reviewed the patient's lab results. Lab Results 05/09/25 18:28: WBC 6.2, RBC 3.86 L, Hgb 11.2 L, Hct 35.6 L, MCV 92.2, MCH 29.0, MCHC 31.5 L, RDW 16.4, Plt Count 220, MPV 10.5 H, Neut % (Auto) 66.6, Lymph % (Auto) 23.9, Fisher % (Auto) 6.0, Eos % (Auto) 2.4, Baso % (Auto) 0.6, Neut # (Auto) 4.1, Lymph # (Auto) 1.5, Fisher # (Auto) 0.4, Eos # (Auto) 0.2, Baso # (Auto) 0.0, ESR 107 H, Sodium 135 L, Potassium 4.5, Chloride 102, Carbon Dioxide 28, Anion Gap 9.5, BUN 20, Creatinine 1.70 H, Estimated Creat Clear 65, E stimated GFR 40 L, Est GFR ( Amer) 49 L, Glucose 137 H, Lactate 0.6 L, Calcium 8.7, Total Bilirubin 1.4 H, AST 38, ALT 17, Alkaline Phosphatase 108, C- Reactive Protein 38.2 H, NT-Pro-B Natriuret Pep 2070 H, Total Protein 7.8, Albumin 3.9, Globulin 3.9 H, Albumin/Globulin Ratio 1.0 L 05/09/25 18:28 05/09/25 18:28 Orders (Tests/Meds): ED MEDICATIONS Discontinued Medications Generic Name Dose Route Start Last Admin Trade Name Freq PRN Reason Stop Dose Admin Iopamidol 120 ml 05/09/25 19:25 05/09/25 19:26 Iopamidol-370 (76%);100ml Bottle IV 05/09/25 19:26 120 ml ONCE ONE Administration Sodium Chloride 50 ml 05/09/25 19:25 05/09/25 19:26 0.9 % Sodium Chloride 50 Ml Vial IV 05/09/25 19:26 50 ml ONCE ONE Administration Sodium Chloride 10 ml 05/09/25 19:25 05/09/25 19:26 Sodium Chloride 0.9% 10ml Syr (Rad Only) IV 05/09/25 19:26 10 ml ONCE ONE Administration ORDERS Category Date Time Status CT angio LE RT Stat Cat Scan 05/09/25 16:22 Completed XR ankle RT min 3V Stat Exams 05/09/25 16:23 Completed CRP [C-Reactive Protein] Stat Lab 05/09/25 18:28 Completed Complete Blood Count Auto Diff Stat Lab 05/09/25 18:28 Completed Comprehensive Metabolic Panel Stat Lab 05/09/25 18:28 Completed ESR [Erythrocyte Sedimentation Rate] Stat Lab 05/09/25 18:28 Completed Lactic Acid Stat Lab 05/09/25 18:28 Completed NT Pro Brain Natriuretic Pep. Stat Lab 05/09/25 18:28 Completed CA venous doppler LE RT Stat Y 05/09/25 16:19 Completed Medical Decision Narrative: 69-year-old male presents to the emergency department with right lower extremity swelling with redness for 2 days, differential diagnose include but not limited to chronic venous stasis dermatitis, vascular ulcer, pressure ulcer, diabetic ulcer, osteomyelitis, cellulitis, DVT, peripheral artery disease, among others. I discussed this patient's case with the attending physician Dr. Milian Will obtain basic laboratory studies, x-ray of the ankle on the right, CT angio of the lower extremity the right and venous duplex ultrasound the right, inflammatory markers lactic acid and proBNP. CBC is notable for erythrocyte pi?a 3.86, hemoglobin 11.2, hematocrit 35.6 Mild creatinine elevation at 1.7, appears to be in line with the patient's baseline, proBNP is mildly elevated at 2070, CRP mildly elevated at 38.2 ESR is elevated at 107 I reviewed the patient's right ankle x-ray along the corresponding radiologic report, no acute findings. I reviewed the patient's CTA of the right lower extremity with and without contrast on the corresponding radiologic report, age-indeterminate occlusion of the mid to distal right anterior tibial artery, diffuse subcutaneous soft tissue welling up of the right lower leg ankle and foot no evidence of any soft tissue ulceration or abscess. I along with the attending physician reviewed the patient's lower extremity duplex ultrasound, negative for DVT per our read, discussed this with the patient the full radiology report is not yet back. Patient voiced understanding. I discussed the results with the patient the bedside, will treat the patient for cellulitis/chronic venous stasis dermatitis in the setting of a chronic arterial ulcer, patient is on dual endplate therapy of Plavix and aspirin, patient will follow-up with lmft for his age-indeterminate right tibial artery occlusion for which he knows about his peripheral artery disease, will treat the patient with clindamycin 450 mg p.o. 3 times daily for 5 days, wound care follow-up on Friday, patient voiced understanding and agreement with the current treatment plan/discharge plan. Strict return precaution given. <Jerry Milian MD - Last Filed: 05/09/25 18:44> Vital Signs: 05/09/25 15:12 05/09/25 15:17 05/09/25 16:33 Temperature 97.5 F L Temperature Source Temporal Artery Scan Pulse Rate 70 74 Pulse Rate [Right] 74 Respiratory Rate 20 20 Blood Pressure 120/70 166/82 H Blood Pressure [Right Arm] 117/72 Blood Pressure Mean Blood Pressure Mean [Right Arm] 87 Blood Pressure Source Automatic Cuff Blood Pressure Source [Right Arm] Automatic Cuff Blood Pressure Position Sitting Blood Pressure Position [Right Arm] Sitting 02 Sat by Pulse Oximetry 97 96 98 Oxygen Delivery Method Room Air Room Air 05/09/25 17:00 05/09/25 17:30 05/09/25 18:00 Temperature Temperature Source Pulse Rate 69 66 73 Pulse Rate [Right] Respiratory Rate Blood Pressure 170/86 H 166/82 H 160/96 H Blood Pressure [Right Arm] Blood Pressure Mean Blood Pressure Mean [Right Arm] Blood Pressure Source Blood Pressure Source [Right Arm] Blood Pressure Position Blood Pressure Position [Right Arm] 02 Sat by Pulse Oximetry 98 98 98 Oxygen Delivery Method 05/09/25 18:30 05/09/25 19:00 05/09/25 20:01 Temperature Temperature Source Pulse Rate 73 78 71 Pulse Rate [Right] Respiratory Rate Blood Pressure 150/81 H 148/92 H 179/89 H Blood Pressure [Right Arm] Blood Pressure Mean 119 Blood Pressure Mean [Right Arm] Blood Pressure Source Blood Pressure Source [Right Arm] Blood Pressure Position Blood Pressure Position [Right Arm] 02 Sat by Pulse Oximetry 97 98 98 Oxygen Delivery Method Lab Data Lab Results 05/09/25 18:28: WBC 6.2, RBC 3.86 L, Hgb 11.2 L, Hct 35.6 L, MCV 92.2, MCH 29.0, MCHC 31.5 L, RDW 16.4, Plt Count 220, MPV 10.5 H, Neut % (Auto) 66.6, Lymph % (Auto) 23.9, Fisher % (Auto) 6.0, Eos % (Auto) 2.4, Baso % (Auto) 0.6, Neut # (Auto) 4.1, Lymph # (Auto) 1.5, Fisher # (Auto) 0.4, Eos # (Auto) 0.2, Baso # (Auto) 0.0, ESR 107 H, Sodium 135 L, Potassium 4.5, Chloride 102, Carbon Dioxide 28, Anion Gap 9.5, BUN 20, Creatinine 1.70 H, Estimated Creat Clear 65, E stimated GFR 40 L, Est GFR ( Amer) 49 L, Glucose 137 H, Lactate 0.6 L, Calcium 8.7, Total Bilirubin 1.4 H, AST 38, ALT 17, Alkaline Phosphatase 108, C- Reactive Protein 38.2 H, NT-Pro-B Natriuret Pep 2070 H, Total Protein 7.8, Albumin 3.9, Globulin 3.9 H, Albumin/Globulin Ratio 1.0 L Orders (Tests/Meds): ED MEDICATIONS Discontinued Medications Generic Name Dose Route Start Last Admin Trade Name Freq PRN Reason Stop Dose Admin Iopamidol 120 ml 05/09/25 19:25 05/09/25 19:26 Iopamidol-370 (76%);100ml Bottle IV 05/09/25 19:26 120 ml ONCE ONE Administration Sodium Chloride 50 ml 05/09/25 19:25 05/09/25 19:26 0.9 % Sodium Chloride 50 Ml Vial IV 05/09/25 19:26 50 ml ONCE ONE Administration Sodium Chloride 10 ml 05/09/25 19:25 05/09/25 19:26 Sodium Chloride 0.9% 10ml Syr (Rad Only) IV 05/09/25 19:26 10 ml ONCE ONE Administration ORDERS Category Date Time Status CT angio LE RT Stat Cat Scan 05/09/25 16:22 Completed XR ankle RT min 3V Stat Exams 05/09/25 16:23 Completed CRP [C-Reactive Protein] Stat Lab 05/09/25 18:28 Completed Complete Blood Count Auto Diff Stat Lab 05/09/25 18:28 Completed Comprehensive Metabolic Panel Stat Lab 05/09/25 18:28 Completed ESR [Erythrocyte Sedimentation Rate] Stat Lab 05/09/25 18:28 Completed Lactic Acid Stat Lab 05/09/25 18:28 Completed NT Pro Brain Natriuretic Pep. Stat Lab 05/09/25 18:28 Completed CA venous doppler LE RT Stat Y 05/09/25 16:19 Completed Procedures <Jerry Milian MD - Last Filed: 05/09/25 18:44> Limited Ultrasound Indication:: Indication:: Ultrasound-guided line placement Indication: - Difficult IV access, numerous unsuccessful pokes Identified structures: - Left basilic vein Location/access site: - Left basilic vein Vessel patency: - Patent Direct visualization? - Yes Impression: Successful 18 g catheter in left upper extremity cephalic vein Images were not saved to permanent archive The study was technically adequate Critical Care <ANIL Roque - Last Filed: 05/09/25 20:27> Critical Care Time Critical Care Time: No
--- NOTE | 2025-05-09 16:19 | CA_ITS ---
FINAL REPORT CLINICAL HISTORY: EDEMA RLE,PT HAS WOUND RT FOOT,PT ON PLAVIX FINDINGS: DUPLEX VENOUS SONOGRAPHY OF THE RIGHT LOWER EXTREMITY Multiple transverse and longitudinal scans were performed of the femoropopliteal deep venous system, with augmentation and compression maneuvers. Normal phasic flow was noted in the visualized deep venous system. No intraluminal increased echogenicity is noted to suggest thrombus. There is normal compression and augmentation of the venous structures. No abnormal venous collaterals are seen. IMPRESSION: No evidence of deep venous thrombosis of the right lower extremity. Reviewed, Interpreted and Dictated by Verónica Parish MD Transcribed by Delilah Kelly Authenticated and [facility]
--- NOTE | 2025-05-09 16:22 | CT_ITS ---
PROCEDURE INFORMATION: Exam: CTA Right Lower Extremity With Contrast Exam date and time: 05/09/2025 7:21 PM Age: 69 years old Clinical indication: Swelling, leg or foot and swelling or effusion of joint; Ankle; Additional info: Right malleolus cellulitis versus ulcer TECHNIQUE: Imaging protocol: Computed tomographic angiography of the right lower extremity with contrast. 3D rendering (Not supervised by radiologist): MIP and/or 3D reconstructed images were created by the technologist. Radiation optimization: All CT scans at this facility use at least one of these dose optimization techniques: automated exposure control; mA and/or kV adjustment per patient size (includes targeted exams where dose is matched to clinical indication); or iterative reconstruction. Contrast material: ISOVUE 370; Contrast volume: 120 ml; Contrast route: INTRAVENOUS (IV); COMPARISON: US - CA VENOUS DOPPLER LE RT 05/09/2025 4:44 PM FINDINGS: Right femoral/popliteal arteries: No occlusion or significant stenosis. Right infrapopliteal arteries: There is age-indeterminate occlusion of the mid to distal right anterior tibial artery. The right posterior tibial and peroneal arteries appear diffusely patent. Bones/joints: No acute fracture. No dislocation. Mild degenerative changes of the right knee and ankle noted. Soft tissues: Diffuse subcutaneous soft tissue edema throughout the right lower leg, foot and ankle. No loculated fluid collections. IMPRESSION: 1. Age-indeterminate occlusion of the mid to distal right anterior tibial artery 2. Diffuse subcutaneous soft tissue swelling of the right lower leg, ankle and foot. No evidence of soft tissue ulceration or abscess
--- NOTE | 2025-05-09 16:23 | XR_ITS ---
PROCEDURE INFORMATION: Exam: XR Right Ankle Exam date and time: 05/09/2025 7:28 PM Age: 69 years old Clinical indication: Other: Right ankle pain swelling ulcer on the lateral mal TECHNIQUE: Imaging protocol: Radiologic exam of the right ankle. Views: 3 or more views. COMPARISON: CT ANGIO LE RT 05/09/2025 7:21 PM FINDINGS: Bones/joints: Normal. Soft tissues: Normal. IMPRESSION: No acute findings.
[2025-05-09 18:37] LABS: Hematocrit 35.6 % (42.0-52.0); Hemoglobin 11.2 g/dL (14.1-18.0); Immature Granulocytes % 0.5 %; Mean Corpuscular HGB Conc 31.5 g/dL (31.8-35.4); Mean Corpuscular Hemoglobin 29.0 pg (27.0-31.2); Mean Corpuscular Volume 92.2 fl (80-94); Nucleated Red Blood Cells % 0 %; Platelet Count 220 K/mm3 (142-424); Red Blood Count 3.86 M/mm3 (4.60-6.20); Red Cell Distribution Width-SD 55.5 fL; White Blood Count 6.2 K/mm3 (4.8-10.8)
[2025-05-09 18:52] LABS: Alanine Aminotransferase 17 U/L (12-78); Albumin Level 3.9 g/dl (3.5-5.0); Albumin/Globulin Ratio 1.0 (1.1-1.8); Alkaline Phosphatase 108 U/L (38-126); Anion Gap 9.5 mEq/L (5-15); Aspartate Amino Transferase 38 U/L (17-59); Bilirubin,Total 1.4 mg/dl (0.2-1.3); Blood Urea Nitrogen 20 mg/dl (9-20); Calcium 8.7 mg/dl (8.4-10.2); Carbon Dioxide 28 mmol/L (22.0-30.0); Chloride 102 mmol/L (98-107); Creatinine Clearance Estimated 65 mL/min (50-200); Creatinine,Serum 1.70 mg/dl (0.66-1.25); Estimated Glomerular Filt Rate 40 ml/min (>60); GFR (African American) 49 ML/MIN (>60); Globulin 3.9 g/dL (1.3-3.2); Glucose 137 mg/dl (74-100); Potassium 4.5 mmoL/L (3.5-5.1); Sodium 135 mmol/L (136-145); Total Protein,Serum 7.8 g/dl (6.3-8.2)
[2025-05-09 18:57] LABS: C-Reactive Protein 38.2 mg/L (0-4)
[2025-05-09 19:03] LABS: NT Pro Brain Natriuretic Pep. 2070 pg/mL (0-125)
[2025-05-09] MEDS: SODIUM CHLORIDE 0.9% 10ML SYR (RAD ONLY) 10 ML IV (19:26)
[2025-05-09] MEDS: 0.9 % SODIUM CHLORIDE 50 ML VIAL IV (19:26)
[2025-05-09] MEDS: IOPAMIDOL-370 (76%);100ML BOTTLE 120 ML IV (19:26)
[2025-05-09] MEDS: CLINDAMYCIN 150MG CAPSULE 450 MG PO (20:38)
== END 2025-05-09 20:41 | disposition home or self-care (01) ==
PROVIDERS: Physician Assistant; Emergency Provider Student in an Organized Health Care Education/Training Program; PCP Nurse Practitioner Family
DX: L03.115 Cellulitis of right lower limb (principal); L97.319 Non-pressure chronic ulcer of right ankle with unspecified severity; R70.0 Elevated erythrocyte sedimentation rate; I11.0 Hypertensive heart disease with heart failure; I50.9 Heart failure, unspecified; I73.9 Peripheral vascular disease, unspecified; Z86.79 Personal history of other diseases of the circulatory system; Z95.1 Presence of aortocoronary bypass graft; Z87.891 Personal history of nicotine dependence; Z79.01 Long term (current) use of anticoagulants
CPT/HCPCS: 73610; 73706; 80053; 83605; 83880; 85025; 85651; 86140; 93971; 99285; Q9967

== ENCOUNTER 2025-05-31 15:00 | Outpatient (RCR) | payer MEDICARE, SELFPAY ==
--- NOTE | 2025-05-31 15:59 | HMH.RHREAS ---
Rehab Reassessment Rehab OP Re-assessment Start: 05/11/25 15:57 Freq: Status: Active Protocol: Document 05/31/25 15:22 LIANNA (Rec: 05/31/25 15:54 LIANNA [id number]) E-signed By Joanna Nolasco PT Dynamic Gait Index Test Protocol Gait Level Surface Mild Impairment Query Text: Instructions: Walk at your normal speed from here to the next león (20'). Grading: León the lowest category that applies. Change in Gait Speed Mild Impairment Query Text: Instructions: Begin walking at your normal pace (for 5') , when I tell you go , walk as fast as you can (for 5'). When I tell you slow , walk as slowly as you can ( for 5'). Grading: León the lowest category that applies. Gait with Horizontal Mild Impairment Head Turns Query Text: Instructions: Begin walking at your normal pace. When I tell you to look right , keep walking straight, but turn you head to the right. Keep looking to the right unit I tell you look left , then keep walking straight and turn your head to the left. Keep your head to the left until I tell you look straight , then keep walking straight, but return you head to the center. Grading: León the lowest category that applies. Gait with Vertical Mild Impairment Head Turns Query Text: Instructions: Begin walking at your normal pace. When I tell you to look up , keep walking staight, but tip your head up. Keep looking up until I tell you to look down , then keep walking straight and tip your head down. Keep your head down until I tell you look straight , then keep walking straight, but return your head to the center. Grading: León the lowest category that applies. Gait and Pivot Turn Mild Impairment Query Text: Instructions: Begin walking at your normal pace. When I tell you turn and stop , turn as quickly as you can to face the opposite direction and stop. Grading: León the lowest category that applies. Step Over Obstacle Moderate Impairment Query Text: Instructions: Begin walking at your normal speed. When you come to the shoebox, step over it, not around it and keep walking. Grading: León the lowest category that applies. Step Around Mild Impairment Obstacles Query Text: Instructions: Begin walking at normal speed. When you come to the first cone (about 6' away) , walk around the right side of it. When you come to the second cone (6' past first cone), walk around it to the left. Grading: León the lowest category that applies. Steps Moderate Impairment Query Text: Instructions: Walk up these stairs as you would at home. At the top, turn around and walk down . Grading: León the lowest category that applies. Scoring Dynamic Gait Index 14 Score Rehab Re-assessment Subjective Subjective Pt reports he feels about 90% better since beginning therapy. Pt reports he continues to have balance deficits. Pt continues to ambulate with platform RW. Pt wishes to address his RUE strength deficits with OT in the future. Objective Objective Notes TU seconds (25s last RA, 29s on IE) with platform RW 5xSTS: 20 seconds (21 seconds last RA, 28s on IE) FT EO on unstable surface for 30s: pass Romberg: Passed uneven EO, failed uneven EC. MMT LLE: - Hip FLEX = 4/5 - Hip ABD = 4+/5 - Hip ADD = 4/5 - Knee FLEX = 4+/5 - Knee EXT = 4/5 MMT RLE: - Hip FLEX = 4+/5 - Hip ABD = 4+/5 - Hip ADD = 4+/5 - Knee FLEX = 4/5 - Knee EXT = 4/5 Assessment Progress Assessment Slower Than Expected Assessment Notes Pt has been present for 2 treatment sessions since his last reassessment. Pt has demo'd progress in TUG time, BLE strength, and 5 x STS time. Pt's progress mildly limited d/t limited sessions attended since last RA. Pt continues to need skilled therapy services in order to increase strength, improve endurance to all activity and improve ability to perform all ADLs in order to aid improved QOL. PT Patient Goals PT Short Term In 4 weeks, pt will: Patient Goals 1) Report he feels at least 90% improved since IE: MET 2) Improve BLE strength by 2/5 grade: Not met 3) Improve DGI by 4 points using LRAD to improve safety with mobility: Not met 4) Pass Romberg uneven surface EC: Not met PT [facility] Patient In 8 weeks, pt will: Goals 1) Verbalize adherence to ambulating exercise at home: MET 2) Reports he feels at least 80% improved since IE: MET 3) Improve BLE strength to at least 4-4+/5 to improve functional strength: MET 4) Improve DGI to 15 points using LRAD to improve safety with mobility: MET 5) Perform TUG test in 20 seconds to improve ambulation safety: Not met 6) Pass all Romberg sections to improve static standing balance: Not met 7) Ambulate 20' over uneven surface with LRAD without LOB 3/4 trials: Not met 8) Reports he feels at least 100% improved since IE: Not met 9) Improve BLE strength to at least 4+ or 5/5 to improve functional strength: Not met 10) Improve DGI to 16 points using LRAD to improve safety with mobility: not met 11) Improve 5xSTS to 21 seconds to improve functional endurance and strength: MET Plan Plan Continue POC Frequency of Therapy 2x Duration of Therapy 6 weeks Time and Billing Re-Eval Time 10 Re-Eval Billing 0 Units Charge for PT No reassessment? PHYSICIAN CERTIFICATION: I certify the specified therapy services for Johnathan Parham are required, authorized, and reviewed every 30 days.
== END 2025-05-31 23:59 | disposition home or self-care (01) ==
LOC: PT 15:00
PROVIDERS: PCP Nurse Practitioner Family; Visit Provider Family Medicine
DX: R26.81 Unsteadiness on feet (principal)
CPT/HCPCS: 97112; 97116; 97530

== ENCOUNTER 2025-06-06 14:25 | Outpatient (CLI) | payer MEDICARE, SELFPAY ==
--- OUTSIDE RECORDS SUMMARY | 2025-06-06 14:35 | XMS_ITS | Encounter Summary ---
Author Organization [employer] ([place], [place], [place], [place], [place]) Address [address] [place] [address] Care Team Providers Care Inspector Of Dredging Name Role Phone Unavailable Primary Care Provider Unavailabl e Encounter Details Date Type Department Care Team (Late st Contact Info) Description 01/30/2019 Transcribed Document [facility] [place] Medicine [address] [place] [address] ProviderEmilia MD [address] [place], [place] [id number] Social History Tobacco Use Types Packs/Day Years [...] Physician Requested for Consult : EDILBERTO MIRANDA MD-[facility] Provider Service Notified Name : Nephrology [...]
--- OUTSIDE RECORDS SUMMARY | 2025-06-06 14:35 | XMS_ITS | Encounter Summary ---
Author Organization [employer] ([place], [place], [place], [place], [place]) Address [address] [place] [address] Care Team Providers Care Seismology Technical Officer Name Role Phone Unavailable Primary Care Provider Unavailabl e Encounter Details Date Type Department Care Team (Late st Contact Info) Description 01/31/2019 Transcribed Document [facility] [place] [address] [place] [address] ProviderEmilia MD [address] [place], [place] [id number] Social History Tobacco Use Types Packs/Day Years [...]
--- OUTSIDE RECORDS SUMMARY | 2025-06-06 14:35 | XMS_ITS | Encounter Summary ---
Author Organization [employer] ([place], [place], [place], [place], [place]) Address [address] [place] [address] Care Team Providers Care Scientific Programmer Name Role Phone Unavailable Primary Care Provider Unavailabl e Encounter Details Date Type Department Care Team (Late st Contact Info) Description 02/01/2019 Transcribed Document [facility] [place] [address] MD [address] [place], [place] [phone] Social History Tobacco Use Types Packs/Day Years [...] History of obstructive sleep apnea / IMO [id number] / Confirmed, Active Problems (6) CKD (chronic [...]
--- OUTSIDE RECORDS SUMMARY | 2025-06-06 14:35 | XMS_ITS | Encounter Summary ---
Author Organization [employer] ([place], [place], [place], [place], [place]) Address [address] [place] [address] Care Team Providers Care Judicial Administrative Assistant Name Role Phone Unavailable Primary Care Provider Unavailabl e Encounter Details Date Type Department Care Team (Late st Contact Info) Description 01/30/2019 Transcribed Document [facility] [place] [address] [place] [address] ProviderEmilia MD [address] [place], [place] [phone] Social History Tobacco Use Types Packs/Day Years [...]
--- OUTSIDE RECORDS SUMMARY | 2025-06-06 14:35 | XMS_ITS | Encounter Summary ---
Author Organization [employer] ([place], [place], [place], [place], [place]) Address [address] [place] [address] Care Team Providers Care Traveling Accountant Name Role Phone Unavailable Primary Care Provider Unavailabl e Encounter Details Date Type Department Care Team (Late st Contact Info) Description 01/31/2019 Transcribed Document [facility] [place] [facility] [place] [address] ProviderEmilia MD [address] [place] [id number] Social History Tobacco Use Types Packs/Day Years [...] diabetes mellitus type [address] [facility] with complaints of progressive chest pain with associated palpitations shortness of air and cough via [facility]. He underwent stress testing at their [...] Start: 01/29/19 22:08:00 EDT, Bilateral, Continuous Order (KASASNDRA DAVIS) Sequential Compression Device Start: 01/29/19 21:42:00 [...] reflux disease) History of obstructive sleep apnea [place] (hard of hearing) Hypertension Historical No qualifying [...] Lymph # 1.76 x10(3)/uL 01/31/2019 04:16 EDT [place] % 7.4 % 01/31/2019 04:16 EDT [place] # 0.45 K/uL 01/31/2019 04:16 EDT Eos % 2.6 % 01/31/2019 04:16 EDT Eos # 0.16 x10(3)/uL 01/31/2019 04:16 EDT Baso % 0.5 % 01/31/2019 04:16 EDT Baso # 0.03 x10(3)/uL 01/31/2019 04:16 EDT Slide Review No 01/31/2019 04:16 EDT IG# 0.02 x10(3)/uL 01/31/2019 04:16 EDT IG% 0.30 % 01/31/2019 04:16 EDT Electronically signed by [facility], [facility] Conversion Ceramics Technician Cerner at 10/22/2022 10:57 PM CDT documented in this encounter Plan of Treatment Not on file documented as of this encounter Visit Diagnoses Not on filedocumented in this encounter
--- OUTSIDE RECORDS SUMMARY | 2025-06-06 14:35 | XMS_ITS | Encounter Summary ---
Author Organization [employer] ([place], [place], [place], [place], [place]) Address [address] [place] [address] Care Team Providers Care Meat Selector Name Role Phone Unavailable Primary Care Provider Unavailabl e Encounter Details Date Type Department Care Team (Late st Contact Info) Description 01/30/2019 Transcribed Document [facility] Cardiology [address] [place] [id number] [place] [address] [place] [address] [address] [place] [address] Social History Tobacco Use Types [...] diabetes mellitus type 2 presented to [facility] with complaints of progressive chest pain with associated palpitations shortness of air and cough via [facility]. He unerwent stress testing at their [...] CKD (chronic kidney disease) / SNOMED CT 2865729853 / Confirmed Diabetes mellitus / SNOMED CT 703260621 / Confirmed GERD (gastroesophageal reflux disease) / SNOMED CT 624979256 / Confirmed [place] (hard of hearing) / SNOMED CT 09944899 / Confirmed History of obstructive sleep apnea / IMO [id number] / Confirmed Hypertension / SNOMED CT 3893769560 / Confirmed Inactive: Arrhythmia / SNOMED CT 5257583523, Active Problems (6) CKD (chronic kidney disease) Diabetes mellitus GERD (gastroesophageal reflux disease) History of obstructive sleep apnea [place] (hard of hearing) Hypertension Histories No education [...] Procedure history: CORONARY ARTERY BYPASS GRAFT. CHOLECYSTECTOMY (22216). CATARACT REMOVAL INSERTION OF LENS (03628). Right knee replacement. Hernia Repair. Carotid Endardectomy. [...] (Current Encounter/Past 24 Hours) ProBNP 234 pg/mL AK 01/29/2019 23:10 Blood Gases (Current Encounter/Past 24 [...] IV hydration DC [place] I Plan for [facility] once renal function stable. Consider nephrology evaluation documented in this encounter Plan of Treatment Not on file documented as of this encounter Visit Diagnoses Not on filedocumented in this encounter
--- OUTSIDE RECORDS SUMMARY | 2025-06-06 14:35 | XMS_ITS | Encounter Summary ---
Author Organization [employer] ([place], [place], [place], [place], [place]) Address [address] [place] [address] Care Team Providers Care Solid Waste Facility Supervisor Name Role Phone Unavailable Primary Care Provider Unavailabl e Encounter Details Date Type Department Care Team (Late st Contact Info) Description 01/30/2019 Transcribed Document [facility] [place] [address] [place] [address] ProviderEmilia MD [address] [place], [place] [phone] Social History Tobacco Use Types Packs/Day Years [...] Policy Numbers : Insurance 1 Health Plan: HUMANrumr: turn off the lights Policy Number: [id number] Authorization Number: Insurance Primary Name : [employer] Policy Number: [id number] Authorization Status-Primary : Awaiting callback Authorized Service [...]
--- OUTSIDE RECORDS SUMMARY | 2025-06-06 14:35 | XMS_ITS | Clinical Summary ---
Author Organization [facility] Address [address] [place] [address] Care Team Providers Care Lieutenant Fire Fighter Name Role Phone Pcp, No Primary Care Provider UnavailAddison Ruggiero DO Unavailable [phone] Allergies Active Allergy Reactions Criticality Noted [...] needed for pain. Active HYDROcodone-aceta minophen ([place]) 5-325 MG tablet Take 1 tablet (5 [...] (08/22/2021): Added automatically from request for surgery [id number] Calculus of gallbladder and bile duct 12/27/2013 [...] place to sleep or slept in a nursing home (including now)? No 04/26/2024 PHQ-9 Answer Date [...] any time in the past 12 m [facility], were you homeless or living in a nursing home (including now)? No 06/25/2024 CAGE ASSESSMENT Answer [...] drink first t alyx in the morning (EYE-ASSEMBLER BODY) to steady your nerves or to get [...] Wellness (AWV) 1955 UKY-/Child/Adol SDOH Screenings 1955 [id number] Vaccine (#1) 1962 Diabetes: Dental Exam 1967 [...] this topic Medical Devices Implanted Type Area Banquet Attendant Device Identifier Shelf Expiration Date Model / Serial / Lot Embolic Trufill 1 Gm N Bca Liq - [id number] Implanted:Qty: 1 on 05/06/2023 by Abdoulaye James MD at [facility] [employer] [id number] 08/06/2024 [id number] / / [id number] Vip Vascular Closure Device 6 Fr - [id number] Implanted:Qty: 1 on 05/06/2023 by Abdoulaye James MD at [facility] [employer] - [id number] 12/12/2023 [id number] / / [id number] Puraply Am 6x9 54 Sq Cm - [id number] Implanted:Qty: 1 on 03/16/2024 by Syed Jefferson MD at [facility] [id number] 01/03/2026 PURAPLY-COM 6X9 / / [id number]. 1C Procedures Procedure Name Priority Date/Time Associated Diagnosis Comments HEMOGLOBIN A1C Routine 06/25/2024 3:24 AM EST HEPATITIS C ANTIBODY - ED W/REFLEX TO HCV QUANT PCR STAT 06/24/2024 11:48 AM EST from Last 3 Months or Most Recently Relevant to Health Maintenance Results * Hemoglobin A1c (06/25/2024 3:24 AM EST) Hemoglobin A1c 4.8 <5.7 % 06/25/2024 3:52 AM EST [facility] Blood Venous blood specimen / Unknown Venipuncture / Unknown 06/25/2024 3:24 AM EST 06/25/2024 3:34 AM EST Narrative [facility] - 06/25/2024 3:52 AM EST HA1C Interpretive Data: Diagnosis of Diabetes: Diabetic > or = 6.5% Pre-diabetic 5.7 to 6.4% Non-diabetic < or = 5.6% Glycemic Targets for Type I and Type II Diabetics: Non- Adults <7.0% Adults <6.0% Children and Adolescents <7.5% Source: [place] Diabetes Association. Standards of medical care in diabetes,2017. Diabetes Care.2017:40 (suppl 1):S1-S135. HbA1c assay performed by an ion-exchange chromatography method that is certified traceable to the DCCT. us Huang Hubbard MD LAB BLOOD ORDERABLES Final Re sult Performing Organization Address City/[facility]/ZIP Co de Phone Number [facility] [address] [place] [address] * Hepatitis C Antibody - ED (06/24/2024 11:48 AM EST) Hepatitis C Antibody Negative Negative 06/24/2024 1:02 PM EST [facility] Blood Venous blood specimen / Unknown Venipuncture / Unknown 06/24/2024 11:48 AM EST 06/24/2024 12:16 PM EST us Craig MA LAB BLOOD ORDERABLES Final Res ult Performing Organization Address [facility] Co de Phone Number [facility] [address] [place] [address] from Last 3 Months or Most Recently [...] 11/05/2023 06/29/2024 C. difficile 07/05/2024 07/05/2024 Insurance [facility] MEDIC[facility] Advance Directives * Full Code [...] Patient has decision-making capacity? Yes Care Teams Lieutenant Fire Fighter Relationship Specialty Start Date End Date Pcp, No [address] [place] [address] PCP - General Family Medicine 06/24/24 Addison Rizzo DO [address] [place] [address] 06/24/24
--- OUTSIDE RECORDS SUMMARY | 2025-06-06 14:35 | XMS_ITS | Encounter Summary ---
Author Organization [employer] ([place], [place], [place], [place], [place]) Address [address] [place] [address] Care Team Providers Care Grinder And Plater Name Role Phone Unavailable Primary Care Provider Unavailabl e Encounter Details Date Type Department Care Team (Late st Contact Info) Description 01/30/2019 Transcribed Document [facility] [place] [address] [place] [address] MD [address] [place], [place] [address] Social History Tobacco Use Types Packs/Day Years [...] History of obstructive sleep apnea / IMO [id number] / Confirmed, Active Problems (6) CKD (chronic kidney disease) Diabetes mellitus GERD (gastroesophageal reflux disease) History of obstructive sleep apnea [place] (hard of hearing) Hypertension Objective VS/Measurements Vitals [...]
--- OUTSIDE RECORDS SUMMARY | 2025-06-06 14:35 | XMS_ITS | Encounter Summary ---
Author Organization [employer] ([place], [place], [place], [place], [place]) Address [address] [place] [address] Care Team Providers Care Stapler Coil Unit Name Role Phone Unavailable Primary Care Provider Unavailabl e Encounter Details Date Type Department Care Team (Late st Contact Info) Description 05/18/2019 Transcribed Document [facility] [place] [address] [place] [address] ProviderEmilia MD [address] [place], [place] [phone] Social History Tobacco Use Types Packs/Day Years Used Date Smoking Tobacco: Never Assessed Sex and Gender Information Value Date Recorded Sex Assigned at Not on file Legal Sex Male 5:19 PM CDT Gender Identity Not on file Sexual Orientation Not on file documented as of this encounter Miscellaneous Notes * Cerner Conversion Note - Emilia ProviderMD - 05/18/2019 1:36 PM SHOOTER HELPER ED Assessment Entered On: 05/18/2019 14:43 EST [...] Communication Barrier : None Primary Language : Georgian Any Spiritual/Cultural Needs or Requests : No [...] Rhythm : Regular Nail Bed Color : [place] Chest Pain : Yes ERICA MONROY RN [...] 05/18/2019 14:42 EST Electronically signed by Rehan Freeman [facility] Conversion Efficiency Analyst Cerner at 10/22/2022 11:12 PM CDT documented in this encounter Plan of Treatment Not on file documented as of this encounter Visit Diagnoses Not on filedocumented in this encounter
--- OUTSIDE RECORDS SUMMARY | 2025-06-06 14:35 | XMS_ITS | Data Portability ---
Author Organization [facility] [place] EVANGELINA Duckworth DAWSON CLOSED Address [address] [facility] [address] [place] [address] Assessment No assessment recorded. Plan of Treatment [...] By Organization Details Last Modified Time 05/03/2019 [id number] Trigger Finger-LC DBA_BACKFI L_2 [id number] Not available 01/10/2022 03:47:06 CARPAL TUNNEL SYNDROME-LC [id number] Not available 01/10/2022 03:47:28 05/31/2019 [id number] Routine post-op care and restrictions are discussed with the patient, questions answered. Follow-up in 4 weeks, sooner, prn. yoly Not available 05/31/2019 14:55:37 06/25/2019 [id number] He can resume full, unrestricted use of [...] ick, auto Unknown Analyte Yellow Not Available [facility] With [address], [place], [address], 04/29/2019 14:28:47 04/29/2004/29/2019 urina lysis , dipst ick, auto Unknown Analyte Clear Not Available [facility] With [address], [place], [address], 04/29/2019 14:28:47 04/29/2004/29/2019 urina lysis , dipst ick, auto Unknown Analyte 1.010 Not Available [facility] With [address], [place], [address], 04/29/2019 14:28:47 04/29/2004/29/2019 urina lysis , dipst ick, auto Unknown Analyte 1.003 - 1.035 Not Available [facility] With [address], [place], [address], 04/29/2019 14:28:47 04/29/2004/29/2019 urina lysis , dipst ick, auto Unknown Analyte 5.0 Not Available [facility] With [address], [place], [address], 04/29/2019 14:28:47 04/29/2004/29/2019 urina lysis , dipst ick, auto Unknown Analyte 5.0 - 8.0 Not Available [facility] With [address], [place], [address], 04/29/2019 14:28:47 04/29/2004/29/2019 urina lysis , dipst ick, auto Unknown Analyte Negati ve Not Available [facility] With [address], [place], [address], 04/29/2019 14:28:47 04/29/2004/29/2019 urina lysis , dipst ick, auto Unknown Analyte Negati ve Not Available [facility] With [address], [place], [address], 04/29/2019 14:28:47 04/29/2004/29/2019 urina lysis , dipst ick, auto Unknown Analyte Negati ve Not Available [facility] With [address], [place], [address], 04/29/2019 14:28:47 04/29/2004/29/2019 urina lysis , dipst ick, auto Unknown Analyte Negati ve Not Available [facility] With [address] Bishnu Mcgovern, [place], [address], 04/29/2019 14:28:47 04/29/2004/29/2019 urina lysis , dipst ick, auto Unknown Analyte Negtiv e Not Available [facility] With [address], [place], [address], 04/29/2019 14:28:47 04/29/2004/29/2019 urina lysis , dipst ick, auto Unknown Analyte Negati ve - Trace Not Available [facility] With [address], [place], [address], 04/29/2019 14:28:47 04/29/2004/29/2019 urina lysis , dipst ick, auto Unknown Analyte >1000 mg/dl Not Available [facility] With [address], [place], [address], 04/29/2019 14:28:47 04/29/20 19 04/29/2019 urina lysis , dipst ick, auto Unknown Analyte Normal Not Available [facility] With [address], [place], [address], 04/29/2019 14:28:47 04/29/2004/29/2019 urina lysis , dipst ick, auto Unknown Analyte Negati ve Not Available [facility] With [address], [place], [address], 04/29/2019 14:28:47 04/29/2004/29/2019 urina lysis , dipst ick, auto Unknown Analyte Negati ve Not Available [facility] With [address], [place], [address], 04/29/2019 14:28:47 04/29/2004/29/2019 urina lysis , dipst ick, auto Unknown Analyte Normal Not Available [facility] With [address], [place], [address], 04/29/2019 14:28:47 04/29/2004/29/2019 urina lysis , dipst ick, auto Unknown Analyte Normal - 1mg/dl Not Available [facility] With [address], [place], [address], 04/29/2019 14:28:47 04/29/2004/29/2019 urina lysis , dipst ick, auto Unknown Analyte Negati ve Not Available [facility] With [address], [place], [address], 04/29/2019 14:28:47 04/29/2004/29/2019 urina lysis , dipst ick, auto Unknown Analyte Negati ve Not Available [facility] With [address], [place], [address], 04/29/2019 14:28:47 04/29/2004/29/2019 urina lysis , dipst ick, auto Unknown Analyte Negati ve Not Available [facility] With [address], [place], [address], 04/29/2019 14:28:47 04/29/20 19 04/29/2019 urina lysis , dipst ick, auto Unknown Analyte Negati ve Not Available [facility] With [address], [place], [address], 04/29/2019 14:28:47 04/29/20 19 04/29/2019 urina lysis , dipst ick, auto Unknown Analyte Clean Catch Not Available [facility] With [address], [place], [address], 04/29/2019 14:28:47 04/29/20 19 04/29/2019 urina lysis , dipst ick, auto Unknown Analyte Automa rock Not Available [facility] With [address], [place], [address], 04/29/2019 14:28:47 04/05/20 19 04/05/2019 XR, hand, 3 or more view [place] [facility] [address] [address] Yolanda leroy Name: JOANNA harper : 1954 Yolanda harper 21 Orderi ng Provid er: STEPMARTY N Dave LU Y EXAM DATE: 2018 EXAM: XR [...] moore MD on 019 10:29 AM [id number] [facility] [place] [address], [place], [address], 01/10/2022 03:50:52 05/03/20 19 05/03/2019 nerve condu ction study /EMG, upper extre mity (PROC ) No observ ation record ed. [facility] Neurology [place] S[place]op [address], [place], [address], 05/04/2019 11:07:20 Result Notes None recorded. Problems No Known Problems Procedures Surgical History Date Name Laterality Status Provider Name and Address Organization Details Recorded Time 05/03/20 19 Electromyography (EMG) with Nerve Conduction Study (NCV) completed Sowmya Parisi (Nicky) [facility] 05/03/2019 14:20:26 04/05/20 19 Injection - Trigger Finger, Ortho completed MEHNAZ BETANCOURT MD [address] [place], [address], [facility] 04/05/2019 09:52:14 Coronary artery graft completed ALISTAIR VEGA PA-C [address] [place], [address], [facility] 05/05/2019 16:19:51 Cholecystectomy completed ALISTAIR VEGA PA-C [address] [place], [address], [facility] 05/05/2019 16:19:45 arthroscopy of knee completed ELENI VEGA PA-C [address] [place], [address], [facility] 05/05/2019 16:20:16 carotid endarterectomy completed ALISTAIR VEGA PA-C [address] [place], [address], [facility] 05/05/2019 16:20:34 extraction of cataract completed ALISTAIR VEGA PA-C [address] [place], [address], [facility] 05/05/2019 16:20:55 Imaging Results None recorded. Procedure Notes None recorded. Medical Equipment None Reported. Allergies Allergen ID Allergen Name Allergen Category Reaction Reaction Severity Criticality Documentation Date Start Date Code Code System Note Provider Name and Address Organization Details Recorded Time 636763 Iodinated contrast media (substanc e) medicatio n Not available Not available Not available 10/07/2018 15548 2003 [facility] 10:21:43 Medications Name Sig Start Date [...] Updated DateTime 05/03/2019 182.88 cm 42.7 kg/m2 813599.6 g Shauna Andersoner [facility] 05/03/2019 14:41:57 Date Recorded Body height Body mass index (BMI) Body weight Provider Name and Address Organization Details Last Updated DateTime 05/31/2019 182.88 cm 42.7 kg/m2 191855.6 g Becka Thomas [facility] 05/31/2019 14:39:24 Date Recorded Body height Body mass index (BMI) Body weight Systolic And Diastolic Provider Name and Address Organization Details Last Updated DateTime 06/25/2019 182.88 cm 42.7 kg/m2 773336.6 g 138/84 mm[Hg] Sowmya [facility] 06/25/2019 10:14:45 Social History Question Answer Notes LastModified by Organizat ion Details LastModified Time Tobacco Smoking Status Never Smoker Nat farrar [facility] 10/07/2018 10:28:52 What Is Your Level Of Caffeine Consumption? Occasional [email or web address] Information not available 04/05/2019 Which Of Your Hands Is Dominant? Right [email or web address] Information not available 04/05/2019 Marital Status [email or web address] Informatio n not available 04/05/2019 What Was The Date Of Your Most Recent Tobacco Screening? 10/07/2018 Information n ot available 08/24/2019 Sex: Unknown Functional Status Question Answer Note LastModified by Organization D etails LastModified Time What is your level of alcohol consumption? None [email or web address] Information not available 04/05/2019 Are you currently employed? No Information not available 04/05/2019 Mental Status None recorded. Family History Relationship [...] Liver Disease Y Allergies/Hayfever Y Heart Attack (MA) Y Diabetes Y Sleep Apnea Y Hypertension Y Past Encounters Encounter ID Performer Location Encounter Start Date Encounter Closed Date Diagnosis/Indication Diagnosis SNOMED-CT Code Diagnosis ICD10 Code Diagnosis IMO Codes Diagnosis Note [id number] JOSE ALBERTO IRWIN MD ENDOCRINO LOGY [facility] [place] [address] 10/07/2018 10:01:10 10/07/2018 11:32:51 Benign neoplasm of left adrenal gland 5184766455 00115 D35.02 63-year-ol d male with hypertensi on, [...] e in the care of this patient. [id number] MEHNAZ BETANCOURT MD [facility] [address] [place] [address] 04/05/2019 09:21:31 04/05/2019 10:31:29 Acquired trigger finger 5879289 M65.30 Right small finger, injection performed today Pain in finger 92465746 M79.645 Left index finger, we will obtain x-rays. It might be just severe carpal tunnel syndrome but focal tenderness does not quite make sense with Carpal bowen suzi syndrome 09469973 G56.03 Suspect bilateral carpal tunnel syndrome by history, has nocturnal paresthesi as, History of diabetes. This may be contributi ng to some of his symptoms. [id number] GERHARD KOTHARI MD [facility] [address] [facility] [address] 04/29/2019 13:42:04 05/24/2019 09:53:24 Urgent desire to urinate 47865496 R39.15 Benign pro static hyperplasia with outflow obstruction 472068650 N40.1 Recurrent urinary tract infection 458341867 N39.0 [id number] ANTHONY CERDA MD NEUROLOGY [facility] [address] [place] [address] 05/03/2019 13:27:51 05/03/2019 15:07:43 Bilateral carpal tunnel syndrome 7335705916 2479438 G56.03 Cervical radiculopathy 17197571 M54.12 Diabetic p eripheral neuropathy 973945156 E11.40 [id number] MEHNAZ BETANCOURT MD [facility] [address] [place] [address] 05/03/2019 14:27:10 05/03/2019 16:47:59 Acquired trigger finger 4090413 M65.30 Right small finger, Seems better with injections Pain in finger 66961463 M79.645 Left thumb MP arthritis, Recommend injection which we will do at the same time as the carpal tunnel release Carpal bowen suzi syndrome 90499695 G56.03 Lateral carpal tunnel syndrome, also peripheral neuropathy and C7 radiculopa thy, recommend left carpal tunnel release [id number] MEHNAZ BETANCOURT MD SURGERY SCHEDULE [address] [place] [address] 05/20/2019 06:15:02 05/20/2019 06:15:36 [id number] ALISTAIR VEGA PA-C [facility] [address] [place] [address] 05/31/2019 14:13:19 05/31/2019 14:56:56 Carpal tunnel syndrome 79139589 G56.03 doing well status post left carpal tunnel release [id number] ALISTAIR VEGA PA-C [facility] [address] [place] [address] 06/25/2019 10:03:16 06/25/2019 10:26:36 Carpal tunnel syndrome 88994787 G56.03 doing well status post left carpal tunnel release Health Concerns Section Related Observation LastModified by Organization Detai ls LastModified Time None Recorded Concern Status LastModified by Organization Details LastModified Time None Recorded Advance Directives Directive None Recorded Payers Insurance Date Sequence Insurance Name Policy Number Policy Amaro Covered Member ID Amaro Member ID Guarantor Name 05/31/2020 1 [employer] (MEDICARE REPLACEMENT/A DVANTAGE - HMO) Joanna Parham [id number] Joanna Parham Notes Date Note Type Note Provider Name and Address Organization Details Recorded Time 05/03/2019 text/html Hand SurgeryRepo rted by PatientHPIFor hand dominance, patient reportsright. For location, patient reportsbilateral(hand s). For severity, patient reportspain level 2/10. For duration, patient reports5 years. For previous surgery, patient reportsnone. For work related, patient reportsno. For working, patient reportsno.Pt comes in with nallely hand pain and states his pain is a 2/10. Pt here to discuss EMG results. MEHNAZ BETANCOURT MD [address] [place] [address], [address], [facility] 05/03/2019 15:01:34 05/31/2019 text/html Hand SurgeryRepo rted by PatientHPIFor hand dominance, patient reportsright. For location, patient reportsleft(hand). For severity, patient reportspain level 2/10. For previous surgery, patient reportssurgical procedure: (left carpal tunnel release; inject left thumb mp joint with 1 ml of kenalog and 1 ml of lidocaine),date (05/20/19), and11 days ago(gp 08/17/19). For patient is currently in a, patient reportssurgical dressing(sutures removed for exam). For working, (unemployed).Patient states that he has pain that comes and goes. The patient is here for a routine scheduled postoperative follow-up visit. He reports that the numbness and tingling is better in the median nerve distribution, still has some numbness in the small and ring finger. ALISTAIR VEGA PA-C [address] [place], [address], [facility] 05/31/2019 14:55:50 06/25/2019 text/html Hand SurgeryRepo rted by PatientHPIFor hand dominance, patient reportsright. For location, patient reportsleft(hand). For severity, patient reportspain level 3/10. For previous surgery, patient reportssurgical procedure: (left carpal tunnel release; inject left thumb mp joint with 1 ml of kenalog and 1 ml of lidocaine),date (05/20/19), and5 weeks ago(gp 08/17/19). For work related, patient reportsno. For working, patient reportsno(unemployed) .Pt here for f/u of Lt CTR and [...] finger locking. ALISTAIR VEGA PA-C [address] [place], [address], [facility] 06/25/2019 13:02:22
--- OUTSIDE RECORDS SUMMARY | 2025-06-06 14:35 | XMS_ITS | Encounter Summary ---
Author Organization [employer] ([place], [place], [place], [place], [place]) Address [address] [place] [address] Care Team Providers Care Single Resource Boss Name Role Phone Unavailable Primary Care Provider Unavailabl e Encounter Details Date Type Department Care Team (Late st Contact Info) Description 02/01/2019 Transcribed Document [facility] [place] [address] ProviderEmilia MD [address] [place], [place] [id number] Social History Tobacco Use Types Packs/Day Years [...] Numbers : Insurance 1 Health Plan: [employer] AG&P Policy Number: [id number] Authorization Number: Insurance Primary Name : [employer]P Policy Number: [id number] Authorization Status-Primary : Awaiting callback Authorized Service Begin Date-Primary : 01/29/2019 EDT Authorization Comments-Primary : rec'd call from Roque/caleb this am re: does not meet IP, did we want to change to OBS or have it routed to biomedical equipment support specialist? Pt had heart cath planned for today, asked him to wait for outcome of C. Cath unremarkable per cards note, discussed case w/ DMc who requests leave as IP and have it routed to med director. Call back to Roque/caleb to request route to MD. Historical Authorization Comments-Primary : Comment 1: Received voice mail on main line from Doris hanson [facility] stating that pt OBS, not meeting for INPT and we need to send more clinical if we have any. # [phone] fx# [phone] Made Cayla De Jesus aware as she is following the patient today. (MALIHA DOSHI, Mobile Lounge Driver 02/01/2019 13:11) Comment 2: Per Star notes Notify Payer of Admission - InProgress - faxed clinicals via cerner. (MIRYAM KOTHARI RN 01/30/2019 13:46) CAYLA CHAU, RN-Utilization Review - 02/01/2019 14:35 EDT documented in this encounter Plan of Treatment Not on file documented as of this encounter Visit Diagnoses Not on filedocumented in this encounter
--- OUTSIDE RECORDS SUMMARY | 2025-06-06 14:35 | XMS_ITS | Encounter Summary ---
Author Organization [employer] ([place], [place], [place], [place], [place]) Address [address] [place] [address] Care Team Providers Care Standards Engineer Name Role Phone Unavailable Primary Care Provider Unavailabl e Encounter Details Date Type Department Care Team (Late st Contact Info) Description 01/30/[address] [facility] Family [facility] [address] [place] [address] ProviderEmilia MD [address] [place], [place] [id number] Social History Tobacco Use Types Packs/Day Years [...]
--- OUTSIDE RECORDS SUMMARY | 2025-06-06 14:35 | XMS_ITS | Encounter Summary ---
Author Organization [facility] ([place], [place], [place], [place], [place]) Address [address] [place] [address] Care Team Providers Care Supply Chain Procurement Manager Name Role Phone Unavailable Primary Care Provider Unavailabl e Encounter Details Date Type Department Care Team (Late st Contact Info) Description 01/31/2019 Transcribed Document [facility] [place] Family Medicine [address] [place] [address] ProviderEmilia MD [address], [place] [phone] Social History Tobacco Use Types Packs/Day Years Used Date Smoking Tobacco: Never Assessed Sex and Gender Information Value Date Recorded Sex Assigned at Not on file Legal Sex Male 5:19 PM CDT Gender Identity Not on file Sexual Orientation Not on file documented as of this encounter Miscellaneous Notes * [employer]ner Conversion Note - Historical ProviderMD - 01/31/2019 2:00 AM CDT Candy Butcher Details Entered On: 01/31/2019 2:33 EDT Performed [...]
--- OUTSIDE RECORDS SUMMARY | 2025-06-06 14:35 | XMS_ITS | Clinical Summary ---
Author Organization [facility] Address [address] [id number] Care Team Providers Care Veterinary Manager Name Role Phone Kadie Chen MD Primary Care Provider [phone] Allergies Active Allergy Reactions Criticality Noted Date [...] (03/27/2017): Added automatically from request for surgery [id number] Family History Medical History Relation Name Comments [...] 2007 ZOSTER VACCINE (1 of 2) 2007 TDAP/TD VACCINES (1 - Tdap) 10/14/2010 04/0 03/2011, 10/13/2010, 10/07/2010, Additional history exists ANNUAL PHYSICAL 03/27/2017 HEPATITIS C SCREENING 03/27/2017 LIPID PANEL 05/16/2024 05/16/2023, 03/28/2017 INFLUENZA VACCINE 02/04/2025 COVID-19 Vaccine (1 - 2023-2 5 season) 2025 HEMOGLOBIN A1C Discontinued 06/13/2024, 050 07/2023, 08/09/2023, Additional history exists AAA SCREEN ONCE Completed 06/16/2024, 050 08/2023, 05/05/2023 Medical Devices Implanted Type Area Coordinator Of Evaluation Device Identifier Shelf Expiration Date Model / Serial / Lot Linnea Obrien 1x6cm - [id number] Implanted:Qty: 1 on 06/24/2017 by Priyank Law MD at [facility] Implant Right: Carotid SY[employer]IS 10/28/2021 [id number] / / [id number] Procedures Procedure Name Priority Date/Time Associated Diagnosis Comments HEMOGLOBIN A1C Routine 2017 2:07 PM EST Stenosis of right carotid artery LIPID PANEL STAT 03/28/2017 7:38 AM EDT from Last 3 Months or Most Recently Relevant to Health Maintenance Results * (ABNORMAL) Hemoglobin A1c (2017 2:07 PM EST) Pathologist [facility] Hemoglobin A1C 7.50(H) 4.80 - 5.60 % 2017 2:47 PM EST [facility] Blood Venipuncture / Unknown 2017 2:07 PM EST 2017 2:21 PM EST Narrative [facility] - 2017 2:47 PM EST The [place] [employer] recommends maintenance of Hemoglobin A1C at 7.0% or lower. Goals for Hemoglobin A1C reduction may need to be modified if hypoglycemia is a problem. us Elzbieta MA LAB BLOOD ORDERABLES Final R esult [facility]
[address] [place] [address], * (ABNORMAL) Lipid Panel (03/28/2017 7:38 AM EDT) Total Cholesterol 141 0 - 200 mg/dL 03/28/2017 8:20 AM EDT [facility] Triglycerides 170(H) 0 - 150 mg/dL 03/28/2017 8:20 AM EDT [facility] HDL Cholesterol 27(L) 40 - 60 mg/dL 03/28/2017 8:20 AM EDT [facility] LDL Cholesterol 104 0 - 130 mg/dL 03/28/2017 8:20 AM EDT [facility] Blood Line / Unknown 03/28/2017 7: 38 AM EDT 03/28/2017 7:57 AM EDT [facility] - 03/28/2017 8:20 AM EDT [...] Rebolledo APRN LAB BLOOD ORDERABLES Final Result [facility]
[address] [place] [address], from Last 3 Months or Most Recently Relevant to Health Maintenance Insurance [id number] MEDICARE ADVANTAGE Advance Directives * Full Code (Latest Code Status on File) Date Activated Date Inactivated Comments 06/24/2017 12:16 PM 06/25/2017 2:32 PM Care Teams Veterinary Manager Relationship Specialty Start Date End Date Kadie Chen MD PCP - General Family Medicine 03/28/17
--- OUTSIDE RECORDS SUMMARY | 2025-06-06 14:35 | XMS_ITS | Encounter Summary ---
Author Organization [employer] ([place], [place], [place], [place], [place]) Address [address] [place] [address] Care Team Providers Care Drive In Waiter/Waitress Name Role Phone Unavailable Primary Care Provider Unavailabl e Encounter Details Date Type Department Care Team (Late st Contact Info) Description 01/31/2019 Transcribed Document [facility] Cardiology [address] [place] [id number] [place] [address] [place] [address] [address] [place] [address] Social History Tobacco Use Types [...] CKD (chronic kidney disease) / SNOMED CT 0669218304 / Confirmed Diabetes mellitus / SNOMED CT 008360268 / Confirmed GERD (gastroesophageal reflux disease) / SNOMED CT 473997193 / Confirmed [place] (hard of hearing) / SNOMED CT 59549904 / Confirmed History of obstructive sleep apnea / IMO [id number] / Confirmed Hypertension / SNOMED CT 5527204383 / Confirmed, Active Problems (6) CKD (chronic kidney disease) Diabetes mellitus GERD (gastroesophageal reflux disease) History of obstructive sleep apnea [place] (hard of hearing) Hypertension Objective Intake and [...] 01/29/2019 23:10 Radiology Results (Last 48 hours) [id number] -- 01/29/2019 21:34 CR Chest 2 Vws [...] normal. a. Recent abnormal stress testing at [facility] 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 PLAN; 01/31/2019 Add amlodipine. If persitent HTN will increase Defer [place] I for now secondary to renal dysfunction Other Rx appropriate nephrology recs pending [facility] tomorrow if renal function stable. 01/30/2019 Continue aspirin/Plavix/rosuvastatin/coreg. Change home isosorbide dinitrate to him before 60 mg daily. Echocardiogram IV hydration DC [place] I Plan for [facility] once renal function stable. Consider nephrology evaluation documented in this encounter Plan of Treatment Not on file documented as of this encounter Visit Diagnoses Not on filedocumented in this encounter
--- OUTSIDE RECORDS SUMMARY | 2025-06-06 14:35 | XMS_ITS | Encounter Summary ---
Author Organization [employer] ([place], [place], [place], [place], [place]) Address [address] [place] [address] Care Team Providers Care Network Contractor Name Role Phone Unavailable Primary Care Provider Unavailabl e Encounter Details Date Type Department Care Team (Late st Contact Info) Description 05/18/2019 Transcribed Document [facility] [place] Family Medicine [address] [place] [address] ProviderEmilia MD [address] [place], [place] [id number] Social History Tobacco Use Types Packs/Day Years Used Date Smoking Tobacco: Never Assessed Sex and Gender Information Value Date Recorded Sex Assigned at Not on file Legal Sex Male 5:19 PM CDT Gender Identity Not on file Sexual Orientation Not on file documented as of this encounter Miscellaneous Notes * Cerner Conversion Note - Historical ProviderMD - 05/18/2019 4:07 PM INKING MACHINE TENDER CR Chest 1 Vw Portable Ordered: 05/18/2019 Modified Reason for Exam: Chest Pain 05/18/2019 15:58 05/18/2019 16:07 (JORDAN GOMES) No further action required documented in this encounter Plan of Treatment Not on file documented as of this encounter Visit Diagnoses Not on filedocumented in this encounter
--- OUTSIDE RECORDS SUMMARY | 2025-06-06 14:35 | XMS_ITS | Encounter Summary ---
Author Organization [employer] ([place], [place], [place], [place], [place]) Address [address] [place] [address] Care Team Providers Care Family Reunification Specialist Name Role Phone Unavailable Primary Care Provider Annie e Encounter Details Date Type Department Care Team (Late st Contact Info) Description 01/29/2019 Transcribed Document [facility] [place] [facility] [place] [address] ProviderEmilia MD [address] [place], [place] [id number] Social History Tobacco Use Types Packs/Day Years [...] Level : No nutritional risk Lesvia Warner, Clinical Pathologist - 02/01/2019 10:16 EDT Electronically signed by Rehan, [facility] Conversion Engineer Conductor Cerner at 10/22/2022 11:01 PM CDT documented in this encounter Plan of Treatment Not on file documented as of this encounter Visit Diagnoses Not on filedocumented in this encounter
--- OUTSIDE RECORDS SUMMARY | 2025-06-06 14:35 | XMS_ITS | Encounter Summary ---
Author Organization [employer] ([place], [place], [place], [place], [place]) Address [address] [place] [address] Care Team Providers Care Dude Wrangler Name Role Phone Unavailable Primary Care Provider Unavailabl e Encounter Details Date Type Department Care Team (Late st Contact Info) Description 05/18/2019 Transcribed Document [facility] [facility] [place] [address] ProviderEmilia MD [address] [place] [place], [place] [id number] Social History Tobacco Use Types Packs/Day Years Used Date Smoking Tobacco: Never Assessed Sex and Gender Information Value Date Recorded Sex Assigned at Not on file Legal Sex Male 5:19 PM CDT Gender Identity Not on file Sexual Orientation Not on file documented as of this encounter Miscellaneous Notes * Cerner Conversion Note - Historical ProviderMD - 05/18/2019 6:13 PM REGISTERED RADIOGRAPHER documented in this encounter Plan of Treatment Not on file documented as of this encounter Visit Diagnoses Not on filedocumented in this encounter
--- OUTSIDE RECORDS SUMMARY | 2025-06-06 14:35 | XMS_ITS | Encounter Summary ---
Author Organization [employer] ([place], [place], [place], [place], [place]) Address [address] [place] [address] Care Team Providers Care Export Freight Clerk Name Role Phone Unavailable Primary Care Provider Unavailabl e Encounter Details Date Type Department Care Team (Late st Contact Info) Description 01/31/2019 Transcribed Document [facility] Family Medicine [address] [place] [address] MD [address] [place], [place] [id number] Social History Tobacco Use Types Packs/Day Years [...] History of obstructive sleep apnea / IMO [id number] / Confirmed, Active Problems (6) CKD (chronic kidney disease) Diabetes mellitus GERD (gastroesophageal reflux disease) History of obstructive sleep apnea [place] (hard of hearing) Hypertension Objective VS/Measurements Vitals [...]
--- OUTSIDE RECORDS SUMMARY | 2025-06-06 14:35 | XMS_ITS | Encounter Summary ---
Author Organization [employer] ([place], [place], [place], [place], [place]) Address [address] [place] [address] Care Team Providers Care Tractor Operator Helper Name Role Phone Unavailable Primary Care Provider Unavailabl e Encounter Details Date Type Department Care Team (Late st Contact Info) Description 01/29/2019 Transcribed Document [facility] Family Medicine [address] [place] [address] ProviderEmilia MD [address], [place] [phone] Social History Tobacco Use Types Packs/Day Years [...]
--- OUTSIDE RECORDS SUMMARY | 2025-06-06 14:35 | XMS_ITS | Encounter Summary ---
Author Organization [facility] Address [address] [place] [address] Care Team Providers Care Cane Flume Chute Operator Name Role Phone Addison Rizzo DO Primary Care Provider [phone] Pcp, No Primary Care Provider Unavailabl e Addison Rizzo DO Unavailable [phone] [place] LICENSED MASSAGE PRACTITIONER Unavailable Unavailable Encounter Details Date Type Department Care Team (Late st Contact Info) Description 06/12/2024 Lab Requisition [facility] [address] [place] [address] Julien Matthews [address] [place] [address] Encounter for general adult medical [...] time in the past 12 m [facility], were you homeless or living in a [...] drink first t alyx in the morning (EYE-CEMENT FINISHER HELPER) to steady your nerves or to get rid of a hangover? 0 09/05/2023 CAGE Questionnaire Score 0 024 Utilities Answer Date Recorded In the past 12 months has th e [employer], gas, oil, or water [employer] threatened to shut off services in your [...] LAB HEMATOLOGY METHOD 06/14/2024 5:35 PM EST [facility] Specimen Source, Body Fluid Synovial Fluid (type in source) LAB HEMATOLOGY METHOD 06/14/2024 5:35 PM EST [facility] Clinical Diagnosis, Body Fluid Pyogenic arthritis of left knee joint LAB HEMATOLOGY METHOD 06/14/2024 5:35 PM EST [facility] Interpretation , Body Fluid Acute inflammatory cells No pathogenic organisms seen Correlation with microbiology studies recommended Moderate blood A resident was involved in the service. I attest I examined the relevant preparations for the specimens and confirmed the diagnosis or interpretation. 06/14/2024 5:35 PM EST [facility] Pathologist Signature, Body Fluid 06/14/2024 5:35 PM EST [facility] Comment:Reviewed by: Salome thakur MD LAB CP ASR DISCLAIMER Yes 06/14/2024 5:35 PM EST [facility] Joint Fluid Synovial structure / Unknown 06/12/2024 5:00 PM EST 06/13/2024 5:02 AM EST Julien Matthews LAB BODY FLUIDS AND STOOLS ORDER VANESSA Final Result [facility] [address] [place] [address] * (ABNORMAL) Body Fluid Cell Count w/ Diff (06/12/2024 5:00 PM EST) Color, Body fluid Yellow LAB HEMATOLOGY METHOD 06/13/2024 8:26 AM EST [facility] Appearance, Body fluid Cloudy(A) LAB HEMATOLOGY METHOD 06/13/2024 8:26 AM EST [facility] Volume, Body fluid 4.0 cc LAB HEMATOLOGY METHOD 06/13/2024 8:26 AM EST [facility] Fluid Container Specimen received in miscellaneous container LAB HEMATOLOGY METHOD 06/13/2024 8:26 AM EST [facility] Red Blood Cell Count, Body fluid 10,000 uL LAB HEMATOLOGY METHOD 06/13/2024 8:26 AM EST [facility] Total Nucleated Cell Count, Body fluid >100,000 uL LAB HEMATOLOGY METHOD 06/13/2024 8:26 AM [facility] Neutrophils %, Body fluid 90 % LAB HEMATOLOGY METHOD 06/13/2024 8:26 AM EST [facility] Lymphocytes %, Body fluid 3 % LAB HEMATOLOGY METHOD 06/13/2024 8:26 AM EST [facility] Monocytes/Macr ophages %, Body fluid 7 % LAB HEMATOLOGY METHOD 06/13/2024 8:26 AM EST [facility] Eosinophils %, Body fluid 0 % LAB HEMATOLOGY METHOD 06/13/2024 8:26 AM [facility] Lining/Mesothe lial Cells %, Body fluid 0 % LAB HEMATOLOGY METHOD 06/13/2024 8:26 AM EST [facility] Neutrophils Absolute (PMN), Body fluid >90,000 uL LAB HEMATOLOGY METHOD 06/13/2024 8:26 AM EST [facility] Lymphocytes Absolute, Body fluid >3,000 uL LAB HEMATOLOGY METHOD 06/13/2024 8:26 AM [facility] Monocytes/Macr ophages Absolute, Body fluid >7,000 uL LAB HEMATOLOGY METHOD 06/13/2024 8:26 AM [facility] Eosinophils Absolute, Body fluid 0 uL LAB HEMATOLOGY METHOD 06/13/2024 8:26 AM [facility] Basophils Absolute, Body fluid 0 uL LAB HEMATOLOGY METHOD 06/13/2024 8:26 AM [facility] Lining/Mesothe lial Cells Absolute, Body fluid 0 uL LAB HEMATOLOGY METHOD 06/13/2024 8:26 AM [facility] Basophils %, Body fluid 0 % LAB HEMATOLOGY METHOD 06/13/2024 8:26 AM [facility] Joint Fluid Synovial structure / Unknown 06/12/2024 5:00 PM EST 06/13/2024 5:02 AM EST Julien Matthews LAB BODY FLUIDS AND STOOLS ORDERABLES NO SPECIMEN TYPE/SOURCE Final Result [facility] [address] [place] [address] * (ABNORMAL) Body Fluid Cell Count W/O Diff (06/12/2024 5:00 PM EST) Specimen Source, Body Fluid Synovial Fluid (type in source) 06/12/2024 8:21 PM EST [facility] Specimen Type Joint Fluid 06/12/2024 8:21 PM EST [facility] Color, Body fluid Yellow LAB HEMATOLOGY METHOD 06/12/2024 8:21 PM EST [facility] Appearance, Body fluid Cloudy(A) LAB HEMATOLOGY METHOD 06/12/2024 8:21 PM EST [facility] Volume, Body fluid 4.0 cc LAB HEMATOLOGY METHOD 06/12/2024 8:21 PM EST [facility] Red Blood Cell Count, Body fluid 10,000 uL LAB HEMATOLOGY METHOD 06/12/2024 8:21 PM EST [facility] Total Nucleated Cell Count, Body fluid >100,000 uL LAB HEMATOLOGY METHOD 06/12/2024 8:21 PM EST [facility] Fluid Container Specimen received in miscellaneous container LAB HEMATOLOGY METHOD 06/12/2024 8:21 PM EST [facility] Joint Fluid Synovial structure / Unknown 06/12/2024 5:00 PM EST 06/12/2024 7:43 PM EST Julien Matthews LAB BODY FLUIDS AND STOOLS ORDER VANESSA Final Result [facility] [address] [place] [address] * Joint Fluid Crystals (06/12/2024 5:00 PM EST) Crystals, Joint Fluid No Crystals Seen No Crystals Present 06/12/2024 11:03 PM EST [facility] Joint Fluid 06/12/2024 5:00 PM EST 06/12/2024 7:43 PM EST us Julien Matthews LAB BODY FLUIDS AND STOOLS ORDER VANESSA Final Result [facility] [address] [place] [address] documented in this encounter Visit Diagnoses Diagnosis [...] documented as of this encounter Care Teams Cane Flume Chute Operator Relationship Specialty Start Date End Date Addison Rizzo DO [address] [place] [id number] PCP - General 04/26/24 06/23/24 Pcp, [place] [address] PCP - General Family Medicine 06/24/24 Addison Rizzo DO [address] [phone] 06/24/24 [place] Red[place] LPN VALUE[employer] [address] None TCM Nurse 06/23/24 07/23/24 documented as of this encounter
--- OUTSIDE RECORDS SUMMARY | 2025-06-06 14:35 | XMS_ITS | Encounter Summary ---
Author Organization [employer] ([place], [place], [place], [place], [place]) Address [address] [place] [address] Care Team Providers Care Candy Department Manager Name Role Phone Unavailable Primary Care Provider Unavailabl e Encounter Details Date Type Department Care Team (Late st Contact Info) Description 02/01/2019 Transcribed Document [facility] [place] Family Medicine [address] [place] [address] ProviderEmilia MD [address], [place] [phone] Social History Tobacco Use Types Packs/Day Years Used Date Smoking Tobacco: Never Assessed Sex and Gender Information Value Date Recorded Sex Assigned at Not on file Legal Sex Male 5:19 PM CDT Gender Identity Not on file Sexual Orientation Not on file documented as of this encounter Miscellaneous Notes * [employer]ner Conversion Note - Historical ProviderMD - 02/01/2019 2:00 AM CDT Prefabricated Houses Trimmer Details Entered On: 02/01/2019 4:35 EDT Performed [...]
--- OUTSIDE RECORDS SUMMARY | 2025-06-06 14:35 | XMS_ITS | Referral Summary ---
Author Organization [employer] [facility] ([place], [place], [place], [place], [place]) Address [address] [place] [address] Care Team Providers Care Beverage Distiller Name Role Phone Unavailable Primary Care Provider [...]
--- OUTSIDE RECORDS SUMMARY | 2025-06-06 14:35 | XMS_ITS | Encounter Summary ---
Author Organization [employer] ([place], [place], [place], [place], [place]) Address [address] [place] [address] Care Team Providers Care Ship Unloader Name Role Phone Unavailable Primary Care Provider Unavailabl e Encounter Details Date Type Department Care Team (Late st Contact Info) Description 01/30/2019 Transcribed Document [facility] [place] [address] [place] [address] ProviderEmilia MD [address], [place] [phone] Social History Tobacco Use Types Packs/Day Years Used Date Smoking Tobacco: Never Assessed Sex and Gender Information Value Date Recorded Sex Assigned at Not on file Legal Sex Male 5:19 PM CDT Gender Identity Not on file Sexual Orientation Not on file documented as of this encounter Miscellaneous Notes * Cerner Conversion Note - Historical ProviderMD - 01/30/2019 2:00 AM CDT Casting Room Operator Details Entered On: 01/30/2019 2:21 EDT Performed [...]
--- OUTSIDE RECORDS SUMMARY | 2025-06-06 14:35 | XMS_ITS | Encounter Summary ---
Author Organization [employer] ([place], [place], [place], [place], [place]) Address [address] [place] [address] Care Team Providers Care Underwear Hemmer Name Role Phone Unavailable Primary Care Provider Unavailabl e Encounter Details Date Type Department Care Team (Late st Contact Info) Description 02/01/2019 Transcribed Document [facility] [place] Medicine [address] [place] [address] ProviderEmilia MD [address], [place] [address] Social History Tobacco Use Types Packs/Day Years [...] Spiritual Care Spiritual Care Referred by : Licensed Mass Real Estate Appraiser initiated Reason for Visit : Initial Ministry Provided to : Patient, Family/Significant other Intervention/Comment/Summary Points : 3 day visit with Johnathan and his . Anglican Preference : Evangelical DANYEL NICHOLSON Chaplain - 02/01/2019 19:31 EDT Electronically signed by Kiara Van Conversion Registered Nurse Surgical Services Cerner at 10/22/2022 11:11 PM CDT documented in this encounter Plan of Treatment Not on file documented as of this encounter Visit Diagnoses Not on filedocumented in this encounter
--- OUTSIDE RECORDS SUMMARY | 2025-06-06 14:35 | XMS_ITS | Encounter Summary ---
Author Organization [employer] ([place], [place], [place], [place], [place]) Address [address] [place] [address] Care Team Providers Care School Psychologist Name Role Phone Unavailable Primary Care Provider Unavailabl e Encounter Details Date Type Department Care Team (Late st Contact Info) Description 05/18/2019 Transcribed Document [facility] [place] [facility] [place] [address] MD [address] [place] [id number] Social History Tobacco Use Types Packs/Day Years Used Date Smoking Tobacco: Never Assessed Sex and Gender Information Value Date Recorded Sex Assigned at Not on file Legal Sex Male 5:19 PM CDT Gender Identity Not on file Sexual Orientation Not on file documented as of this encounter Miscellaneous Notes * Cerner Conversion Note - Historical ProviderMD - 05/18/2019 3:33 PM PASTE MAKER Patient: JOHNATHAN PARHAM Age: 63 years Sex: [...] GRAFT in 2004 at 50 Years. CHOLECYSTECTOMY ([id number]). CATARACT REMOVAL INSERTION OF LENS ([id number]). Right knee replacement. Hernia Repair. Carotid Endardectomy.. [...] reflux disease) History of obstructive sleep apnea [place] (hard of hearing) Hypertension . Physical Examination [...] Normal ventricular rate is 64 bpm. pr [id number] ms. Normal QTC. Sinus rhythm with no [...] % 26.0 % Lymph # 1.41 x10(3)/uL [place] % 8.3 % [place] # 0.45 K/uL Eos % 2.8 % Eos # 0.15 x10(3)/uL Baso % 0.6 % Baso # 0.03 x10(3)/uL Slide Review No IG# 0.02 x10(3)/uL IG% 0.40 % PT 10.0 Second(s) INR 1.0 PTT 26.8 Second(s) . Radiology results: Radiology Results (Last 48 hours) [id number] -- 05/18/2019 13:36 CR Chest 1 Vw [...] He does need to follow-up with his embedded firmware developer in 24 hours. He is have any [...]
--- OUTSIDE RECORDS SUMMARY | 2025-06-06 14:35 | XMS_ITS | Clinical Summary ---
Author Organization [facility] Address [address] [place] [address], [address] [place] [address] Care Team Providers Care Buckle Strap Puncher Name Role Phone Estefania Bueno MD Primary [...] of Treatment Not on file Care Teams Buckle Strap Puncher Relationship Specialty Start Date End Date Estefania Bueno MD [address] [place] [address] PCP - General 01/15/12
--- OUTSIDE RECORDS SUMMARY | 2025-06-06 14:35 | XMS_ITS | Encounter Summary ---
Author Organization [employer] ([place], [place], [place], [place], [place]) Address [address] [place] [address] Care Team Providers Care Street Railway Line Installer Name Role Phone Unavailable Primary Care Provider Unavailabl e Encounter Details Date Type Department Care Team (Late st Contact Info) Description 05/18/2019 Transcribed Document [facility] [place] Family Medicine [address] [place] [address] ProviderEmilia MD [address] [place], [place] [id number] Social History Tobacco Use Types Packs/Day Years Used Date Smoking Tobacco: Never Assessed Sex and Gender Information Value Date Recorded Sex Assigned at Not on file Legal Sex Male 5:19 PM CDT Gender Identity Not on file Sexual Orientation Not on file documented as of this encounter Miscellaneous Notes * Cerner Conversion Note - Historical ProviderMD - 05/18/2019 1:36 PM BRASS WIND INSTRUMENT MAKER ED Triage Entered On: 05/18/2019 13:41 EST [...] : 2 - Emergent Tracking Group : [facility] ED Shelby Jefferson RN - 05/18/2019 13:38 EST Mode of Arrival : Stretcher Transported to ED by : Ambulance/ALS EMS Service : [facility] To Room Via : Stretcher Accompanied By : Unaccompanied DATA MANAGEMENT MANAGER Medications and Interventions : Document ED Vital Signs : Document Height & Weight : Document ED Allergies : Document ED Reason for Visit : Document Tetanus Immunization : Unknown Potato Grader Needed : No Shelby Jefferson RN - [...] Problems(Active) CKD (chronic kidney disease) (SNOMED CT :6949136480 ) Name of Problem: CKD (chronic kidney disease) ; Recorder: Ana Villeda RN; Confirmation: Confirmed ; Classification: Patient Stated ; Code: [id number] ; Contributor System: nLife TherapeuticsChart ; Last Updated: 01/29/2019 22:37 EDT ; Life Cycle Date: 01/29/2019 ; Life Cycle Status: Active ; Vocabulary: SNOMED CT Diabetes mellitus (SNOMED CT :152464867 ) Name of Problem: Diabetes mellitus ; Recorder: Ana Villeda RN; Confirmation: Confirmed ; Classification: Patient Stated ; Code: 985206351 ; Contributor System: nLife TherapeuticsChart ; Last Updated: 01/29/2019 22:37 EDT ; Life Cycle Date: 01/29/2019 ; Life Cycle Status: Active ; Vocabulary: SNOMED CT GERD (gastroesophageal reflux disease) (SNOMED CT :686508879 ) Name of Problem: GERD (gastroesophageal reflux disease) ; Recorder: Ana Villeda RN; Confirmation: Confirmed ; Classification: Patient Stated ; Code: 775994666 ; Contributor System: PowerChart ; Last Updated: 01/29/2019 22:37 EDT ; Life Cycle Date: 01/29/2019 ; Life Cycle Status: Active ; Vocabulary: SNOMED CT History of obstructive sleep apnea (IMO :10780895 ) Name of Problem: History of obstructive sleep apnea ; Recorder: SYSTEM, SYSTEM; Confirmation: Confirmed ; Classification: Medical ; Code: 77688993 ; Last Updated: 01/29/2019 22:48 EDT ; Life Cycle Date: 01/29/2019 ; Life Cycle Status: Active ; Vocabulary: IMO MARSHALL (hard of hearing) (SNOMED CT :04706303 ) Name of Problem: MARSHALL (hard of hearing) ; Recorder: Ana Villeda RN; Confirmation: Confirmed ; Classification: Patient Stated ; Code: 45590739 ; Contributor System: Slicebooks ; Last Updated: 01/29/2019 22:37 EDT ; Life Cycle Date: 01/29/2019 ; Life Cycle Status: Active ; Vocabulary: SNOMED CT Hypertension (SNOMED CT :3725499087 ) Name of Problem: Hypertension ; Recorder: Ana Villeda RN; Confirmation: Confirmed ; Classification: Patient Stated ; Code: 8300320604 ; Contributor System: Slicebooks ; Last Updated: 01/29/2019 22:37 EDT ; Life Cycle Date: 01/29/2019 ; Life Cycle Status: Active ; Vocabulary: SNOMED CT Diagnoses(Active) Chest pain Date: 05/18/2019 ; Diagnosis Type: Reason For Visit ; Confirmation: Complaint of ; Clinical Dx: Chest pain ; Classification: Medical ; Clinical Service: Emergency medicine ; Code: PNED ; Probability: 0 ; Diagnosis Code: [id number] ED Height and Weight Height Source : Estimated Height Entry Format : [place] Height, Feet : 6 ft(Converted to: 183 cm, 72 Inch) Height, Inches : 2 Inch(Converted to: 0 ft 2 Inch, 5.08 cm) Clinical Height : 187.96 cm Weight Source, ED : Critical estimated dosing weight Weight Entry Format : [place] Weight, Pounds : 320 lb Clinical Dosing Weight : 145.45 kg Body Surface Area (BSA) : 2.66 m2 Body Mass Index : 41.2 kg/m2 (>HHI) [place] Body Weight (IBW) : 81.16 kg Shelby Jefferson RN - 05/18/2019 13:38 EST DATA MANAGEMENT MANAGER Medications and Interventions Treatments Prior to Arrival : Other: 20 G right AC; fsbs 346 Shelby Jefferson RN - 05/18/2019 13:38 EST Electronically signed by Rehan, [facility] Conversion Crayon Molding Machine Operator Cerner at 10/22/2022 11:22 PM CDT documented in this encounter Plan of Treatment Not on file documented as of this encounter Visit Diagnoses Not on filedocumented in this encounter
--- OUTSIDE RECORDS SUMMARY | 2025-06-06 14:35 | XMS_ITS | Encounter Summary ---
Author Organization [employer] ([place], [place], [place], [place], [place]) Address [address] [place] [address] Care Team Providers Care Shoe Salesperson Name Role Phone Unavailable Primary Care Provider Unavailabl e Encounter Details Date Type Department Care Team (Late st Contact Info) Description 02/01/2019 Transcribed Document [facility] [place] Family Medicine [facility] [address] MD [address] [place] [address] Social History Tobacco Use Types Packs/Day Years [...] Morbid obesity. DISCHARGE INSTRUCTIONS: Diet: According to [employer]. Activities: As tolerated. Followup appointment [...] chronic kidney disease, has been followed by mergers and acquisitions banker. Recommended patient to follow up as outpatient [...]
--- OUTSIDE RECORDS SUMMARY | 2025-06-06 14:35 | XMS_ITS | Encounter Summary ---
Author Organization [employer] ([place], [place], [place], [place], [place]) Address [address] [place] [address] Care Team Providers Care Picker/Puller Name Role Phone Unavailable Primary Care Provider Unavailabl e Encounter Details Date Type Department Care Team (Late st Contact Info) Description 02/01/[address] [facility] [place] Family Medicine [address] [place] [address] ProviderEmilia MD [address] [place], [place] [id number] Social History Tobacco Use Types Packs/Day Years [...] On: 02/01/2019 13:11 EDT by MALIHA DOSHI, Studio Owner Primary Insurance Authorization Authorization and Policy Numbers : Insurance 1 Health Plan: [employer] Policy Number: [id number] Authorization Number: Insurance Primary Name : [employer] Policy Number: [id number] Authorization Status-Primary : Awaiting callback Authorized Service Begin Date-Primary : 01/29/2019 EDT Authorization Comments-Primary : Received voice mail on main line from Doris hanson [facility] stating that pt OBS, not meeting for INPT and we need to send more clinical if we have any. # [phone] fx# [phone] Made Cayla De Jesus aware as she is following the patient today. Historical Authorization Comments-Primary : Comment 1: Per Star notes Notify Payer of Admission - InProgress - faxed clinicals via cerner. (MIRYAM KOTHARI RN 01/30/2019 13:46) MALIHA DOSHI, Studio Owner - 02/01/2019 13:11 EDT documented in this encounter Plan of Treatment Not on file documented as of this encounter Visit Diagnoses Not on filedocumented in this encounter
--- OUTSIDE RECORDS SUMMARY | 2025-06-06 14:35 | XMS_ITS | Clinical Summary ---
Author Organization [employer] [facility] ([place], [place], [place], [place], [place]) Address [address] [place] [address] Care Team Providers Care Glass Wool Blanket Machine Feeder Name Role Phone Unavailable Primary Care Provider [...]
--- OUTSIDE RECORDS SUMMARY | 2025-06-06 14:35 | XMS_ITS | Encounter Summary ---
Author Organization [employer] ([place], [place], [place], [place], [place]) Address [address] [place] [address] Care Team Providers Care Business Transformation Manager Name Role Phone Unavailable Primary Care Provider Unavailabl e Encounter Details Date Type Department Care Team (Late st Contact Info) Description 01/30/2019 Transcribed Document [facility] [place] [facility] [address] ProviderEmilia MD [address] [place] [address] Social History Tobacco Use Types Packs/Day Years [...] has been evaluated there and transferred to [facility]. Patient came in, blood work done [...] was reviewed. TIME SPENT: 55 minutes. Enrique hKan M.D. Dict: 01/30/2019 00:39:56 Trans: 01/30/2019 01:15:25 CC1: Enrique Khan M.D. documented in this encounter Plan of Treatment Not on file documented as of this encounter Visit Diagnoses Not on filedocumented in this encounter
--- OUTSIDE RECORDS SUMMARY | 2025-06-06 14:35 | XMS_ITS | Encounter Summary ---
Author Organization [employer] ([place], [place], [place], [place], [place]) Address [address] [place] [address] Care Team Providers Care Gm Name Role Phone Unavailable Primary Care Provider Unavailabl e Encounter Details Date Type Department Care Team (Late st Contact Info) Description 05/18/2019 Transcribed Document [facility] [place] [address] [place] [address] ProviderEmilia MD [address] [place], [place] [address] Social History Tobacco Use Types Packs/Day Years Used Date Smoking Tobacco: Never Assessed Sex and Gender Information Value Date Recorded Sex Assigned at Not on file Legal Sex Male 5:19 PM CDT Gender Identity Not on file Sexual Orientation Not on file documented as of this encounter Miscellaneous Notes * Cerner Conversion Note - Historical ProviderMD - 05/18/2019 1:36 PM FRANCHISE DEVELOPMENT MANAGER [place] Suicide Severity Rating Scale (C-SSRS) Entered On: 05/18/2019 14:44 EST Performed On: 05/18/2019 14:42 EST by ERICA MONROY RN [place] Suicide Severity Rating Scale (C-SSRS) CSSRS Past [...]
--- OUTSIDE RECORDS SUMMARY | 2025-06-06 14:35 | XMS_ITS | Encounter Summary ---
Author Organization [facility] Address [address] [place] [address] Care Team Providers Care Financial Systems Analyst Name Role Phone Bridgette Szymanski DO Primary Care Provider Elaina Carvalho PA Primary Care Provider Addison Rizzo DO Primary Care Provider Pcp, No Primary Care Provider Unavailabl e Addison Rizzo DO Unavailable [phone] Brooklyn Redmond PENCILS WASHER Unavailable Unavailable Encounter Details Date Type Department Care Team (Late st Contact Info) Description 05/06/2023 Lab Requisition [facility] [address] [place] [address] Estefania Keller MD [address] [place] [address] Unspecified general medical examination Social [...] place to sleep or slept in a chcf (including now)? No 05/08/2023 Utilities Answer Date Recorded In the past 12 months has th e [employer], gas, oil, or water company threatened to [...] Name Priority Date/Time Associated Diagnosis Comments SOURCE, [facility] HCV QUANT PCR Routine 05/06/2023 11:10 AM EDT Unspecified general medical examination HC 418 HIV-1 AG W/COMB 1&2 AB Routine 05/06/2023 11:10 AM EDT Unspecified general medical examination SOURCE, [facility] HEPATITIS B S AG Routine 05/06/2023 11:10 AM EDT Unspecified general medical examination documented in this encounter Results * Source, [facility] HCV Quant PCR (05/06/2023 11:10 AM EDT) Hepatitis C Virus (HCV) Quantitative Interpretation Not Detected Not Detected . 05/08/2023 5:06 AM EDT [facility] Hepatitis C Virus (HCV) Quantitative Viral Load Log Result <1.08 <1.08 log10 IU/mL 05/08/2023 5:06 AM EDT [facility] Hepatitis C Virus (HCV) Quantitative IU/mL Result <12 <12 IU/mL 05/08/2023 5:06 AM EDT [facility] Blood Venous blood specimen / Unknown 05/06/2023 11:10 AM EDT 05/06/2023 11:[address] [facility] - 05/08/2023 5:06 [...] ORDERABLES Final Re sult Performing Organization Address [facility] Co de Phone Number [facility] [address] [place] [address] * Source, [facility] Hepatitis B S AG (05/06/2023 11:10 AM EDT) Pathologist [facility] Hepatitis B Surf Antigen Negative Negative 05/06/2023 12:44 PM EDT HEALTHCARE LAB Blood Venous blood specimen / Unknown 05/06/2023 11:10 AM EDT 05/06/2023 11:38 AM EDT us Estefania Keller MD LAB BLOOD ORDERABLES Final Re sult Performing Organization Address [facility] de Phone Number [facility] [address] [place] [address] * Source, [facility] HIV AB/AG w/Reflex to HIV1/2 Antibody Differentiation (05/06/2023 11:10 AM EDT) [facility] HIV 1 & 2 Antibody/Anti gen Screen Non Reactive Non Reactive 05/06/2023 12:44 PM EDT HEALTHCARE LAB Blood Venous blood specimen / Unknown 05/06/2023 11:10 AM EDT 05/06/2023 11:38 AM EDT us Estefania Keller MD LAB BLOOD ORDERABLES Final Re sult Performing Organization Address [facility] de Phone Number [facility] [address] [place] [address] documented in this encounter Visit Diagnoses Diagnosis [...] documented as of this encounter Care Teams Financial Systems Analyst Relationship Specialty Start Date End Date Bridgette Szymanski DO [address] [place] [address] PCP - General 11/17/20 05/07/23 Elaina Carvalho PA [address] [place] [address] PCP - General 05/08/23 04/25/24 Addison Rizzo DO [address] [place] [address] PCP - General 04/26/24 06/23/24 Pcp, [facility] [address] [place] [address] PCP - General Family Medicine 06/24/24 Addison Rizzo DO [address] [place] [address] 06/24/24 Brooklyn Redmond, [employer] [address] None TCM Nurse 06/23/24 07/23/24 documented as of this encounter
--- OUTSIDE RECORDS SUMMARY | 2025-06-06 14:35 | XMS_ITS | Encounter Summary ---
Author Organization [employer] ([place], [place], [place], [place], [place]) Address [address] [place] [address] Care Team Providers Care Register Clerk Name Role Phone Unavailable Primary Care Provider Unavailabl e Encounter Details Date Type Department Care Team (Late st Contact Info) Description 01/29/2019 Transcribed Document [place] Family Medicine [facility] [place] [address] ProviderEmilia MD [facility] [place], [place] [id number] Social History Tobacco Use Types Packs/Day Years [...] From : Emergency department Legal Guardian : weed cooking operator Support Person/Patient Contracts Paralegal : No Want Family/Rep/Phys Notified of Admit : No Emergency Contact #1 : Samara Carey Emergency Contact #1 Emergency Contact #1 Relationship : Girlfriend Emergency Contact #2 : N/a Emergency Contact #2 Phone Number : N/a Emergency Contact #2 Relationship : N/a Information Obtained From : Patient Primary Language : Belizean Preferred Communication Mode : Verbal Communication Barrier [...] Scale Risk Level : 0-24 Low Risk Felch Fall Interventions : Adequate lighting, Bed in [...] Source : Stated Height Entry Format : [place] Height, Feet : 6 ft(Converted to: 183 cm, 72 Inch) Height, Inches : 0 Inch(Converted to: 0 ft 0 Inch, 0.00 cm) Clinical Height : 182.88 cm Weight Source : Bed scale Weight Entry Format : Rombauer Clinical Dosing Weight : 135.91 kg Weight, Pounds : 299 lb Body Surface Area (BSA) : 2.53 m2 Body Mass Index : 40.6 kg/m2 (>HHI) [place] Body Weight : 77 kg Ana Villeda [...] Any Spiritual/Cultural Needs or Requests : No Yazdanism Preference : Uatsdin Ana Villeda Rn - 01/29/2019 22:41 EDT [...]
--- OUTSIDE RECORDS SUMMARY | 2025-06-06 14:36 | XMS_ITS | Encounter Summary ---
Author Organization [employer] ([place], [place], [place], [place], [place]) Address [address] [place] [address] Care Team Providers Care Immersion Metal Cleaner Name Role Phone Unavailable Primary Care Provider Unavailabl e Encounter Details Date Type Department Care Team (Late st Contact Info) Description 02/04/2019 Transcribed Document [facility] [place] [facility] [place] [address] ProviderEmilia MD [address] [place], [place] [id number] Social History Tobacco Use Types Packs/Day Years [...]
--- OUTSIDE RECORDS SUMMARY | 2025-06-06 14:36 | XMS_ITS | Encounter Summary ---
Author Organization [employer] ([place], [place], [place], [place], [place]) Address [address] [place] [address] Care Team Providers Care Mechanical Spreader Operator Name Role Phone Unavailable Primary Care Provider Unavailabl e Encounter Details Date Type Department Care Team (Late st Contact Info) Description 02/02/2019 Transcribed Document [facility] [place] [facility] [place] [address] ProviderEmilia MD [address] [place], [place] [address] Social History Tobacco Use Types Packs/Day Years [...] On: 02/02/2019 12:04 EDT by ANNETTE ENCARNACION, RN-Slat Pickler Final Discharge Planning Discharge Arrangements : Patient [...] : Yes Discharge To Care Management : Home/Residential/Residential or Self Care -01 ANNETTE ENCARNACION RN-Slat Pickler - 02/02/2019 12:04 EDT Final Narrative Note Final Narrative Note : pt discharge home with . appointment with uptwist spinner made on 02/04 at 0815, with ANIL Lopez. [address]. pt for dc with 70/30 insulin and [facility] to f/u with pt's home rgiment of humalin and assistance with supplies and affordability. ANNETTE ENCARNACION RN-Slat Pickler - 02/02/2019 12:04 EDT documented in this encounter Plan of Treatment Not on file documented as of this encounter Visit Diagnoses Not on filedocumented in this encounter
--- OUTSIDE RECORDS SUMMARY | 2025-06-06 14:36 | XMS_ITS | Encounter Summary ---
Author Organization [employer] ([place], [place], [place], [place], [place]) Address [address] [place] [address] Care Team Providers Care Manager Of Supply Chain Name Role Phone Unavailable Primary Care Provider Unavailabl e Encounter Details Date Type Department Care Team (Late st Contact Info) Description 02/01/2019 Transcribed Document [facility] [place] [address] [place] [address] ProviderEmilia MD [address] [place] [phone] Social History Tobacco Use Types Packs/Day Years [...]
--- OUTSIDE RECORDS SUMMARY | 2025-06-06 14:36 | XMS_ITS | Encounter Summary ---
Author Organization [employer] ([place], [place], [place], [place], [place]) Address [address] [place] [address] Care Team Providers Care Knitting Machine Tender Name Role Phone Unavailable Primary Care Provider Unavailabl e Encounter Details Date Type Department Care Team (Late st Contact Info) Description 02/02/2019 Transcribed Document [facility] [place] [facility] [place] [address] MD [address] [place], [place] [address] Social History Tobacco Use Types Packs/Day Years [...] History of obstructive sleep apnea / IMO [id number] / Confirmed, Active Problems (6) CKD (chronic kidney disease) Diabetes mellitus GERD (gastroesophageal reflux disease) History of obstructive sleep apnea [place] (hard of hearing) Hypertension Objective VS/Measurements Vitals [...]
--- OUTSIDE RECORDS SUMMARY | 2025-06-06 14:36 | XMS_ITS | Encounter Summary ---
Author Organization [employer] ([place], [place], [place], [place], [place]) Address [address] [place] [address] Care Team Providers Care Assistant Branch Operations Manager Name Role Phone Unavailable Primary Care Provider Unavailabl e Encounter Details Date Type Department Care Team (Late st Contact Info) Description 05/18/2019 Transcribed Document [facility] [place] [address] [place] [address] ProviderEmilia MD [address] [place] [address] Social History Tobacco Use Types Packs/Day Years Used Date Smoking Tobacco: Never Assessed Sex and Gender Information Value Date Recorded Sex Assigned at Not on file Legal Sex Male 5:19 PM CDT Gender Identity Not on file Sexual Orientation Not on file documented as of this encounter Miscellaneous Notes * Cerner Conversion Note - Emilia St MD - 05/18/2019 6:16 PM MONUMENT SETTER HELPER [facility] [place], [place] [id number] JOHNATHAN PARHAM :1955 Visit Time:05/18/2019 Your Visit [...] Within 2 to 3 days Where: [address] [place] [address]- Business (1) Allergies Contrast Dye Immunizations This [...] range between ( 0.0 and 7.0 ) Screven #: 0.45 K/uL -- Normal range between ( 0.16 and 1.00 ) Eos #: 0.15 x10(3)/uL -- Normal range between ( 0.00 and 0.80 ) [place] %: 8.3 % -- Normal range between [...] these instructions at home: Medicines ??? Take [id number] and prescription medicines only as told by [...] you work with a diet and nutrition worker (registered dietitian) to educate you about healthy [...] 2006 Document Revised: 07/28/2017 Document Reviewed: 07/28/2017 [employer] Interactive Patient Education ?? 2019 [employer] Emergency Awareness and Preventative Care STROKE [...] Assistance with quitting is available by contacting 8-507-YLYDNOW. This is a free resource providing counseling, [...] was given the opportunity to ask questions. Patient/Choir Director Name: Patient/Choir Director Signature: Relationship to Patient: Clinician/Hospital Choir Director Signature: Please Provide a Telephone Number Where You Can Be Reached: Is it Permissible To Leave a Message? Date: Electronically signed by Rehan, Kiara Conversion Residential Service Technician Cerner at 10/22/2022 11:07 PM CDT documented in this encounter Plan of Treatment Not on file documented as of this encounter Visit Diagnoses Not on filedocumented in this encounter
--- OUTSIDE RECORDS SUMMARY | 2025-06-06 14:36 | XMS_ITS | Encounter Summary ---
Author Organization [employer] ([place], [place], [place], [place], [place]) Address [address] [place] [address] Care Team Providers Care Flag Signalman Name Role Phone Unavailable Primary Care Provider Unavailabl e Encounter Details Date Type Department Care Team (Late st Contact Info) Description 05/18/2019 Transcribed Document [facility] [place] [address] [place] [address] ProviderEmilia MD [address] [place], [place] [address] Social History Tobacco Use Types Packs/Day Years Used Date Smoking Tobacco: Never Assessed Sex and Gender Information Value Date Recorded Sex Assigned at Not on file Legal Sex Male 5:19 PM CDT Gender Identity Not on file Sexual Orientation Not on file documented as of this encounter Miscellaneous Notes * Cerner Conversion Note - Historical ProviderMD - 05/18/2019 6:17 PM INFORMATION SECURITY SPECIALIST ED Discharge Entered On: 05/18/2019 18:17 EST [...]
--- OUTSIDE RECORDS SUMMARY | 2025-06-06 14:36 | XMS_ITS | Encounter Summary ---
Author Organization [employer] ([place], [place], [place], [place], [place]) Address [address] [place] [address] Care Team Providers Care Second Ride Fare Collector Name Role Phone Unavailable Primary Care Provider Unavailabl e Encounter Details Date Type Department Care Team (Late st Contact Info) Description 02/02/2019 Transcribed Document [facility] [place] [address] [place] [address] ProviderEmilia MD [address] [place], [place] [id number] Social History Tobacco Use Types Packs/Day Years [...]
--- OUTSIDE RECORDS SUMMARY | 2025-06-06 14:36 | XMS_ITS | Encounter Summary ---
Author Organization [employer] ([place], [place], [place], [place], [place]) Address [address] [place] [address] Care Team Providers Care Granite Polisher Name Role Phone Unavailable Primary Care Provider Unavailabl e Encounter Details Date Type Department Care Team (Late st Contact Info) Description 02/01/2019 Transcribed Document [facility] [place] [address] [place] [address] ProviderEmilia MD [address] [place], [place] [id number] Social History Tobacco Use Types Packs/Day Years [...]
--- OUTSIDE RECORDS SUMMARY | 2025-06-06 14:36 | XMS_ITS | Encounter Summary ---
Author Organization [employer] ([place], [place], [place], [place], [place]) Address [address] [place] [address] Care Team Providers Care Nailing Machine Feeder Name Role Phone Unavailable Primary Care Provider Unavailabl e Encounter Details Date Type Department Care Team (Late st Contact Info) Description 02/02/2019 Transcribed Document [facility] [place] [facility] [place] [address] ProviderEmilia MD [address] [place], [place] [phone] Social History Tobacco Use Types Packs/Day Years [...] Stated) GERD (gastroesophageal reflux disease) (Patient Stated) LAC [place] (hard of hearing) (Patient Stated) History of [...] 40.6 kg/m2 Critical (01/29/19 22:48:00) Rapid Response Nailing Machine Feeder #1 : SHEREEN ZURITA V, RN SHEREEN ZURITA V RN - 02/02/2019 1:36 EDT documented in this encounter Plan of Treatment Not on file documented as of this encounter Visit Diagnoses Not on filedocumented in this encounter
--- OUTSIDE RECORDS SUMMARY | 2025-06-06 14:36 | XMS_ITS | Encounter Summary ---
Author Organization [employer] ([place], [place], [place], [place], [place]) Address [address] [place] [address] Care Team Providers Care Router Setter Name Role Phone Unavailable Primary Care Provider Unavailabl e Encounter Details Date Type Department Care Team (Late st Contact Info) Description 02/02/2019 Transcribed Document [facility] [place] [address] [place] [address] ProviderEmilia MD [address] [place], [place] [phone] Social History Tobacco Use Types Packs/Day Years [...]
--- OUTSIDE RECORDS SUMMARY | 2025-06-06 14:36 | XMS_ITS | Encounter Summary ---
Author Organization [employer] ([place], [place], [place], [place], [place]) Address [address] [place] [address] Care Team Providers Care Back Joiner Name Role Phone Unavailable Primary Care Provider Unavailabl e Encounter Details Date Type Department Care Team (Late st Contact Info) Description 02/01/2019 Transcribed Document [facility] [place] Medicine [address] [place] [address] ProviderEmilia MD [address] [place], [place] [phone] Social History Tobacco Use Types Packs/Day Years [...]
--- OUTSIDE RECORDS SUMMARY | 2025-06-06 14:36 | XMS_ITS | Encounter Summary ---
Author Organization [employer] ([place], [place], [place], [place], [place]) Address [address] [place] [address] Care Team Providers Care Agricultural Plow Operator Name Role Phone Unavailable Primary Care Provider Unavailabl e Encounter Details Date Type Department Care Team (Late st Contact Info) Description 02/02/2019 Transcribed Document [facility] [place] Family Medicine [address] [place] [address] ProviderEmilia MD [address] [place] [address] Social History Tobacco Use Types Packs/Day Years Used Date Smoking Tobacco: Never Assessed Sex and Gender Information Value Date Recorded Sex Assigned at Not on file Legal Sex Male 5:19 PM CDT Gender Identity Not on file Sexual Orientation Not on file documented as of this encounter Miscellaneous Notes * Cerner Conversion Note - Emilia ProviderMD - 02/02/2019 12:[address] [facility] [place], [place] [id number] JOHNATHAN COURTNEY :1955 Visit Time:01/29/2019 Your Visit Summary Your Care Team Admitting Physician - FIONA PECK MD-INT Attending Physician - FIONA PECK MD-INT Primary Care Physician - JUDITH BOSTON MD-[facility] Referring Physician - FIONA PECK MD-INT Your Diagnosis Other specified abnormal findings of blood chemistry, Other specified abnormal findings of blood chemistry Weakness Discharge Vitals Temperature 36.4 ??C Heart Rate (Monitored) 97 Respiratory Rate 16 Blood Pressure 167/83 What to do next Instructions From Your Care Team [facility] Address: [address] [place] [address] [place] [address] Please STOP taking Lisinopril Follow-Up Appointments Follow Up with Towboat Operator When 02/04/2019 08:15 AM EDT Comments Appointment has been made with Chelsea MA. Please bring ID, insurance card and list of current medications. Where: [address] , [address] [place], [place] [phone] Follow Up with [facility]hab When In 6 weeks [...] parent to child (inherited). ??? Are of -Mauritian, , , , or descent. What are [...] by your health care provider. ??? Take ghsu-npf-vdxymdi and prescription medicines only as told by [...] 07/12/2008 Document Revised: 02/10/2018 Document Reviewed: 05/21/2017 [employer] Interactive Patient Education ?? 2019 [employer]. Chronic Kidney Disease, Adult Chronic kidney disease [...] these instructions at home: Medicines ??? Take acfz-txn-qtqbzuh and prescription medicines only as told by [...] 09/17/2010 Document Revised: 07/28/2017 Document Reviewed: 07/28/2017 OmegaGen[employer] Interactive Patient Education ?? 2019 [employer] Inc. Carbohydrate Counting for Diabetes Mellitus, Adult [...] different for every person. A diet and youth nutritional monitor (registered dietitian) can help you make a [...] of carbohydrates: ? hamburger bun or ?? Turkish muffin. ? oz (15 mL) syrup. ? [...] foods that contain carbohydrates: ??? Rice. ??? Ama. ??? Milk. ??? Strawberries. 2. Calculate how [...] manage your diabetes. ??? A diet and youth nutritional monitor (registered dietitian) can help you make a [...] 12/04/2016 Elsevier Interactive Patient Education ?? 2019 Omega[employer]esis Inc. Diabetes Mellitus and Skin Care Diabetes [...] (acanthosis nigricans). This typically affects people of -Mauritian and Mauritian-Nepalese descent. ??? Red, raised, scar-like tissue that may itch, feel painful, or develop into a wound (necrobiosis lipoidica). ??? Blisters on feet, toes, hands, or fingers. ??? Thickened, wax-like areas of skin that usually occur on the hands, forehead, or toes (digital sclerosis). ??? Brown or red ring-shaped or pjhg-wbmx-iwrrfv patches of skin on the ears or [...] 12/03/2016 Document Revised: 01/01/2018 Document Reviewed: 12/03/2016 Omega[employer]esis Interactive Patient Education ?? 2019 Omega[employer]esis Inc. Diabetes Mellitus and Nutrition, Adult When [...] that you work with a diet and youth nutritional monitor (dietitian) to make a meal plan that [...] provider. ??? Work with a counselor or medical educator to identify strategies to manage stress and any emotional and social challenges. Questions to ask a health care provider ??? Do I need to meet with a medical educator? Do I need to meet with a dietitian? What number can I call if I have questions? When are the best times to check my blood glucose? Where to find more information: ??? [place] Diabetes Association: diabetes.org ??? Academy of Nutrition and Dietetics: www.eatright.org ??? National [place] of Diabetes and Digestive and Kidney Diseases (NIH): www.niddk.nih.gov Summary ??? A healthy meal plan will help you control your blood glucose and maintain a healthy lifestyle. ??? Working with a diet and youth nutritional monitor (dietitian) can help you make a meal [...] 03/20/2006 Document Revised: 01/21/2018 Document Reviewed: 07/28/2017 OmegaGenesis Interactive Patient Education ?? 2019 Elsevier Inc. [...] doctor. This is important. Medicines ??? Take hniy-sgr-lhftbxo and prescription medicines only as told by [...] 12/09/2008 Document Revised: 05/21/2017 Document Reviewed: 05/21/2017 OmegaGenesis Interactive Patient Education ?? 2019 Omega[employer]esis Inc. Coronary Artery Disease, Male Coronary artery disease (CAD) is a condition in which the arteries that lead to the heart (coronary arteries) become narrow or blocked. The narrowing or blockage can lead to decreased blood flow to the heart. Prolonged reduced blood flow can cause a heart attack (myocardial infarction or [place]). This condition may also be called coronary [...] these instructions at home: Medicines ??? Take zqsr-eph-pnknljd and prescription medicines only as told by [...] 01/18/2015 Document Revised: 06/13/2017 Document Reviewed: 06/13/2017 OmegaGenesis Interactive Patient Education ?? 2019 [employer]Run. insulin isophane and insulin regular (IN horton [...] may report side effects to FDA at 4-818-XJS-9357. What other drugs will affect insulin isophane and insulin regular? This insulin may not work as well when you use other medicines at the same time. This includes prescription and qatg-efq-trkmywr medicines, vitamins, and herbal products. Some drugs [...] to ensure that the information provided by [employer]. ('[employer]') is accurate, up-to-date, and complete, but no guarantee is made to that effect. Drug information contained herein may be time sensitive. [employer] information has been compiled for use by healthcare practitioners and consumers in the [place] and therefore [employer] does not warrant that uses outside of the [place] are appropriate, unless specifically indicated otherwise. [employer]s drug information does not endorse drugs, diagnose patients or recommend therapy. [employer] drug information is an informational resource designed [...] effective or appropriate for any given patient. [facility] does not assume any responsibility for any aspect of healthcare administered with the aid of information [facility] provides. The information contained herein is not intended to cover all possible uses, directions, precautions, warnings, drug interactions, allergic reactions, or adverse effects. If you have questions about the drugs you are taking, check with your doctor, nurse or pharmacist. Copyright 0923-5222 [employer]. Version: 8.01. Revision Date: 03/11/2018.hydralazine (dmitry payton) [...] may report side effects to FDA at 6-129-UFD-4841. What other drugs will affect hydralazine? Tell your doctor about all your current medicines and any you start or stop using, especially: ? diazoxide (an injectable blood pressure medication); or ?? an MAO inhibitor--isocarboxazid, linezolid, methylene blue injection, phenelzine, rasagiline, selegiline, tranylcypromine, and others. This list is not complete. Other drugs may interact with hydralazine, including prescription and aqwd-dno-galkrhm medicines, vitamins, and herbal products. Not all [...]
--- OUTSIDE RECORDS SUMMARY | 2025-06-06 14:36 | XMS_ITS | Encounter Summary ---
Author Organization [employer] ([place], [place], [place], [place], [place]) Address [address] [place] [address] Care Team Providers Care Patient Office Rep Name Role Phone Unavailable Primary Care Provider Unavailabl e Encounter Details Date Type Department Care Team (Late st Contact Info) Description 02/02/2019 Transcribed Document [facility] [place] Family Medicine [address] [place] [address] MD [address] [place], [place] [phone] Social History Tobacco Use Types Packs/Day Years [...] cause a heart attack (myocardial infarction or [place]). This condition may also be called coronary [...] these instructions at home: Medicines ??? Take ruva-mqg-bmwxcmc and prescription medicines only as told by [...] 01/18/2015 Document Revised: 06/13/2017 Document Reviewed: 06/13/2017 [employer] Interactive Patient Education ? 2019 [employer] Inc. Endocrinology Carbohydrate Counting for Diabetes Mellitus, [...] different for every person. A diet and food and nutrition teacher (registered dietitian) can help you make a [...] of carbohydrates: ? hamburger bun or ? Bulgarian muffin. ? oz (15 mL) syrup. ? [...] foods that contain carbohydrates: ??? Rice. ??? [place]. ??? Milk. ??? Strawberries. 2. Calculate how [...] manage your diabetes. ??? A diet and food and nutrition teacher (registered dietitian) can help you make a meal plan and calculate how many carbohydrates you should have at each meal and snack. This information is not intended to replace advice given to you by your health care provider. Make sure you discuss any questions you have with your health care provider. Document Released: 2006 Document Revised: 12/31/2017 Document Reviewed: 12/04/2016 [employer] Interactive Patient Education ? 2019 [employer] Inc. Diabetes Mellitus and Skin Care Diabetes [...] (acanthosis nigricans). This typically affects people of -[place] and [place]- descent. ??? Red, raised, scar-like tissue that may itch, feel painful, or develop into a wound (necrobiosis lipoidica). ??? Blisters on feet, toes, hands, or fingers. ??? Thickened, wax-like areas of skin that usually occur on the hands, forehead, or toes (digital sclerosis). ??? Brown or red ring-shaped or ktpg-dema-kujwig patches of skin on the ears or [...] 12/03/2016 Document Revised: 01/01/2018 Document Reviewed: 12/03/2016 [employer] Interactive Patient Education ? 2019 [employer] Inc. Diabetes Mellitus and Nutrition, Adult When [...] that you work with a diet and food and nutrition teacher (dietitian) to make a meal plan that [...] provider. ??? Work with a counselor or childbirth educator to identify strategies to manage stress and any emotional and social challenges. Questions to ask a health care provider ??? Do I need to meet with a childbirth educator? Do I need to meet with a dietitian? What number can I call if I have questions? When are the best times to check my blood glucose? Where to find more information: ??? [place] Diabetes Association: diabetes.org ??? Academy of Nutrition and Dietetics: www.eatright.org ??? National [place] of Diabetes and Digestive and Kidney Diseases (NIH): www.niddk.nih.gov Summary ??? A healthy meal plan will help you control your blood glucose and maintain a healthy lifestyle. ??? Working with a diet and food and nutrition teacher (dietitian) can help you make a meal [...] 03/20/2006 Document Revised: 01/21/2018 Document Reviewed: 07/28/2017 [employer] Interactive Patient Education ? 2019 [employer]. Nephrology Diabetic Nephropathy Diabetic nephropathy is kidney [...] parent to child (inherited). ??? Are of -[place], , , , or descent. What are [...] by your health care provider. ??? Take ocsm-jfz-driukch and prescription medicines only as told by [...] 07/12/2008 Document Revised: 02/10/2018 Document Reviewed: 05/21/2017 [employer] Interactive Patient Education ? 2019 [employer]. Chronic Kidney Disease, Adult Chronic kidney disease [...] these instructions at home: Medicines ??? Take pfrm-sey-xbrfnrp and prescription medicines only as told by [...] 09/17/2010 Document Revised: 07/28/2017 Document Reviewed: 07/28/2017 [employer] Interactive Patient Education ? 2019 [employer] Inc. Hypertension Hypertension is another name for [...] doctor. This is important. Medicines ??? Take jjkz-crx-gezkpbm and prescription medicines only as told by [...] 12/09/2008 Document Revised: 05/21/2017 Document Reviewed: 05/21/2017 [employer] Interactive Patient Education ? 2019 [employer] USA Inc. documented in this encounter Plan of Treatment Not on file documented as of this encounter Visit Diagnoses Not on filedocumented in this encounter
--- OUTSIDE RECORDS SUMMARY | 2025-06-06 14:36 | XMS_ITS | Encounter Summary ---
Author Organization [employer] ([place], [place], [place], [place], [place]) Address [address] [place] [address] Care Team Providers Care Tabber Name Role Phone Unavailable Primary Care Provider Unavailabl e Encounter Details Date Type Department Care Team (Late st Contact Info) Description 05/18/2019 Transcribed Document [facility] [place] [address] [place] [address] ProviderEmilia MD [address] [place], [place] [phone] Social History Tobacco Use Types Packs/Day Years Used Date Smoking Tobacco: Never Assessed Sex and Gender Information Value Date Recorded Sex Assigned at Not on file Legal Sex Male 5:19 PM CDT Gender Identity Not on file Sexual Orientation Not on file documented as of this encounter Miscellaneous Notes * Cerner Conversion Note - Historical ProviderMD - 05/18/2019 2:22 PM OBGYN NURSE Pain Assessment Entered On: 05/18/2019 15:25 EST Performed On: 05/18/2019 15:25 EST by ERICA MONROY RN Intervention Information: morphine Performed by ERICA MONROY RN on 05/18/2019 14:38:00 EST morphine,4mg IV Push,Right Antecubit [place] Pain Assessment Pain Assessment : Follow-up assessment [...]
--- OUTSIDE RECORDS SUMMARY | 2025-06-06 14:36 | XMS_ITS | Encounter Summary ---
Author Organization [employer] ([place], [place], [place], [place], [place]) Address [address] [place] [address] Care Team Providers Care Enroute Controller Name Role Phone Unavailable Primary Care Provider Unavailabl e Encounter Details Date Type Department Care Team (Late st Contact Info) Description 02/02/2019 Transcribed Document [facility] [place] Family Medicine [address] [place] [address] ProviderEmilia MD [address] [place], [place] [phone] Social History Tobacco Use Types Packs/Day Years [...]
--- OUTSIDE RECORDS SUMMARY | 2025-06-06 14:36 | XMS_ITS | Encounter Summary ---
Author Organization [employer] ([place], [place], [place], [place], [place]) Address [address] [place] [address] Care Team Providers Care Supervisor Particleboard Name Role Phone Unavailable Primary Care Provider Unavailabl e Encounter Details Date Type Department Care Team (Late st Contact Info) Description 02/03/2019 Transcribed Document [facility] [place] Medicine [facility] [place] [address] ProviderEmilia MD [address] [place], [place] [phone] Social History Tobacco Use Types Packs/Day Years [...] Numbers : Insurance 1 Health Plan: [employer] Enhanced Medical Decisions Policy Number: [id number] Authorization Number: Insurance Primary Name : [employer] Policy Number: [id number] Authorization Status-Primary : Notification only Authorization Number-Primary : [id number] Authorized Service Begin Date-Primary : 01/29/2019 EDT Authorization Comments-Primary : Per call from Esper[facility] approved IP admission. Historical Authorization Comments-Primary : Comment 1: [facility] this am re: does not meet IP, did we want to change to OBS or have it routed to medical case manager? Pt had heart cath planned for today, asked him to wait for outcome of C. Cath unremarkable per cards note, discussed case w/ DMc who requests leave as IP and have it routed to med director. Call back to [facility] to request route to MD. (CAYLA CHAU, RN-Utilization Review 02/01/2019 14:35) Comment 2: Received voice mail on main line from Doris at [facility] stating that pt OBS, not meeting for INPT and we need to send more clinical if we have any. ph# [phone] fx# [phone] Made Cayla De Jesus aware as she is following the patient today. (MALIHA DOSHI, Medical [facility] Sales 02/01/2019 13:11) Comment 3: Per [facility] notes Notify Payer of Admission - InProgress - faxed clinicals via cerner. (MIRYAM KOTHARI RN 01/30/2019 13:46) MIRYAM KOTHARI RN - 02/03/2019 9:44 EDT documented in this encounter Plan of Treatment Not on file documented as of this encounter Visit Diagnoses Not on filedocumented in this encounter
--- OUTSIDE RECORDS SUMMARY | 2025-06-06 14:36 | XMS_ITS | Encounter Summary ---
Author Organization [employer] ([place], [place], [place], [place], [place]) Address [address] [place] [address] Care Team Providers Care Material Flow Engineer Name Role Phone Unavailable Primary Care Provider Unavailabl e Encounter Details Date Type Department Care Team (Late st Contact Info) Description 02/02/2019 Transcribed Document [facility] [place] Family Medicine [address] [place] [address] ProviderEmilia MD [address] [place], [place] [phone] Social History Tobacco Use Types Packs/Day Years Used Date Smoking Tobacco: Never Assessed Sex and Gender Information Value Date Recorded Sex Assigned at Not on file Legal Sex Male 5:19 PM CDT Gender Identity Not on file Sexual Orientation Not on file documented as of this encounter Miscellaneous Notes * Cerner Conversion Note - Historical ProviderMD - 02/02/2019 2:00 AM CDT Extrusion Die Repairer Details Entered On: 02/02/2019 6:46 EDT Performed [...]
--- OUTSIDE RECORDS SUMMARY | 2025-06-06 14:36 | XMS_ITS | Encounter Summary ---
Author Organization [employer] ([place], [place], [place], [place], [place]) Address [address] [place] [address] Care Team Providers Care [place] Worker Helper Name Role Phone Unavailable Primary Care Provider Unavailabl e Encounter Details Date Type Department Care Team (Late st Contact Info) Description 02/02/2019 Transcribed Document [facility] [place] [facility] [place] [address] ProviderEmilia MD [address] [place] [phone] Social History Tobacco Use Types Packs/Day Years [...] # 0.70 x10(3)/uL (Low) 02/02/2019 03:25 EDT [place] % 4.3 % 02/02/2019 03:25 EDT [place] # 0.35 K/uL 02/02/2019 03:25 EDT Eos [...]
--- OUTSIDE RECORDS SUMMARY | 2025-06-06 14:36 | XMS_ITS | Encounter Summary ---
Author Organization [employer] ([place], [place], [place], [place], [place]) Address [address] [place] [address] Care Team Providers Care Firewall Security Engineer Name Role Phone Unavailable Primary Care Provider Unavailabl e Encounter Details Date Type Department Care Team (Late st Contact Info) Description 02/01/2019 Transcribed Document [facility] Cardiology [address] [place] [phone] [place] [address] [place] [address] [address] [place] [address] Social History Tobacco Use Types [...] reflux disease) History of obstructive sleep apnea DOUGLAS (hard of hearing) Hypertension Objective Intake and [...] 24 Hours) Radiology Results (Last 48 hours) [id number] -- 01/29/2019 21:34 CR Chest 2 Vws [...] normal. a. Recent abnormal stress testing at [facility] 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 PLAN; 02/01/19 [facility] today unremarkable. Recommend tight BP control. NOthing further to add. Follow up with Dr Daily 2-3 weeks. Will sign off. 01/31/2019 Add amlodipine. If persitent HTN will increase Defer [place] I for now secondary to renal dysfunction Other Rx appropriate nephrology recs pending [facility] tomorrow if renal function stable. 01/30/2019 Continue aspirin/Plavix/rosuvastatin/coreg. Change home isosorbide dinitrate to him before 60 mg daily. Echocardiogram IV hydration DC [place] I Plan for [facility] once renal function stable. Consider nephrology evaluation documented in this encounter Plan of Treatment Not on file documented as of this encounter Visit Diagnoses Not on filedocumented in this encounter
--- OUTSIDE RECORDS SUMMARY | 2025-06-06 14:36 | XMS_ITS | Encounter Summary ---
Author Organization [employer] ([place], [place], [place], [place], [place]) Address [address] [place] [address] Care Team Providers Care Sub Acute Care Nurse Name Role Phone Unavailable Primary Care Provider Unavailabl e Encounter Details Date Type Department Care Team (Late st Contact Info) Description 02/01/2019 Transcribed Document [facility] [place] [facility] [place] [address] ProviderEmilia MD [address] [place] [phone] Social History Tobacco Use Types Packs/Day Years [...] 76 mg/dL 01/31/2019 14:02 EDT Protein [facility] 14 mg/dL 01/31/2019 14:02 EDT WBC 5.9 [...] Lymph # 1.47 x10(3)/uL 02/01/2019 05:17 EDT Ritchie % 7.9 % 02/01/2019 05:17 EDT Ritchie # 0.47 K/uL 02/01/2019 05:17 EDT Eos % 2.5 % 02/01/2019 05:17 EDT Eos # 0.15 x10(3)/uL 02/01/2019 05:17 EDT Baso % 0.5 % 02/01/2019 05:17 EDT Baso # 0.03 x10(3)/uL 02/01/2019 05:17 EDT Slide Review No 02/01/2019 05:17 EDT IG# 0.03 x10(3)/uL 02/01/2019 05:17 EDT IG% 0.50 % 02/01/2019 05:17 EDT Electronically signed by Kiara Van Conversion Gluing Machine Operator Electronic [employer]ner at 10/22/2022 11:17 PM CDT documented in this encounter Plan of Treatment Not on file documented as of this encounter Visit Diagnoses Not on filedocumented in this encounter
[2025-06-06 15:43] LABS: Chloride 104 mmol/L (98-107); Potassium 4.9 mmoL/L (3.5-5.1); Sodium 140 mmol/L (136-145)
[2025-06-06 15:46] LABS: Anion Gap 15.9 mEq/L (5-15); Blood Urea Nitrogen 27 mg/dl (9-20); Calcium 8.9 mg/dl (8.4-10.2); Carbon Dioxide 25 mmol/L (22.0-30.0); Creatinine,Serum 1.90 mg/dl (0.66-1.25); Estimated Glomerular Filt Rate 36 ml/min (>60); GFR (African American) 43 ML/MIN (>60); Glucose 123 mg/dl (74-100)
[2025-06-06 16:00] LABS: Free T4 (Free Thyroxine) 1.40 ng/dl (0.78-2.19)
[2025-06-06 16:14] LABS: Thyroid Stimulating Hormone 0.15 uIU/mL (0.465-4.68)
== END 2025-06-06 23:59 | disposition home or self-care (01) ==
LOC: LAB 14:26
PROVIDERS: PCP Nurse Practitioner Family; Visit Provider Student in an Organized Health Care Education/Training Program
DX: E03.9 Hypothyroidism, unspecified (principal); N18.32 Chronic kidney disease, stage 3b
CPT/HCPCS: 36415; 80048; 84439; 84443

== ENCOUNTER 2025-06-19 13:42 | Emergency (ER) | payer MEDICARE, OTHER, SELFPAY ==
[2025-06-19] VITALS (11 sets, daily range): BP systolic 127–163; BP diastolic 58–86; PULSE 69–90; RESP 16–20; TEMP 36.8–37.1; O2SAT 97–99; BMI 34.5
--- OUTSIDE RECORDS SUMMARY | 2025-06-19 13:51 | XMS_ITS | Clinical Summary ---
Author Organization [facility] Address [address] [place] [address], [address] [place] [address] Care Team Providers Care Clutch Operator Name Role Phone Estefania Bueno MD [...] of Treatment Not on file Care Teams Clutch Operator Relationship Specialty Start Date End Date Estefania Bueno MD [address] [place] [address] PCP - General 01/15/12
--- OUTSIDE RECORDS SUMMARY | 2025-06-19 13:51 | XMS_ITS | Data Portability ---
Author Organization [facility] EVANGELINA Duckworth [facility] Address [address] [place] [address] Assessment No assessment recorded. Plan of Treatment [...] By Organization Details Last Modified Time 05/03/2019 [id number] Trigger Finger-LC DBA_BACKFI [id number] Not available 01/10/2022 03:47:06 CARPAL TUNNEL SYNDROME-LC [id number] [id number] Not available 01/10/2022 03:47:28 05/31/2019 [id number] Routine post-op care and restrictions are discussed with the patient, questions answered. Follow-up in 4 weeks, sooner, prn. yoly Not available 05/31/2019 14:55:37 06/25/2019 [id number] He can resume full, unrestricted use of [...] ick, auto Unknown Analyte Yellow Not Available [facility] With [address], [place], [address], 04/29/2019 14:28:47 04/29/2004/29/2019 urina lysis , dipst ick, auto Unknown Analyte Clear Not Available [facility] With [address], [place], [address], 04/29/2019 14:28:47 04/29/2004/29/2019 urina lysis , dipst ick, auto Unknown Analyte 1.010 Not Available [facility] With [address], [place], [address], 04/29/2019 14:28:47 04/29/2004/29/2019 urina lysis , dipst ick, auto Unknown Analyte 1.003 - 1.035 Not Available [facility] With [address], [place], [address], 04/29/2019 14:28:47 04/29/2004/29/2019 urina lysis , dipst ick, auto Unknown Analyte 5.0 Not Available [facility] With [address], [place], [address], 04/29/2019 14:28:47 04/29/2004/29/2019 urina lysis , dipst ick, auto Unknown Analyte 5.0 - 8.0 Not Available [facility] With [address], [place], [address], 04/29/2019 14:28:47 04/29/2004/29/2019 urina lysis , dipst ick, auto Unknown Analyte Negati ve Not Available [facility] With [address], [place], [address], 04/29/2019 14:28:47 04/29/2004/29/2019 urina lysis , dipst ick, auto Unknown Analyte Negati ve Not Available [facility] With [address] F, [place], [address], 04/29/2019 14:28:47 04/29/2004/29/2019 urina lysis , dipst ick, auto Unknown Analyte Negati ve Not Available [facility] With [address], [place], [address], 04/29/2019 14:28:47 04/29/2004/29/2019 urina lysis , dipst ick, auto Unknown Analyte Negati ve Not Available [facility] With [address] Bishnu Mcgovern, [place], [address], 04/29/2019 14:28:47 04/29/2004/29/2019 urina lysis , dipst ick, auto Unknown Analyte Negtiv e Not Available [facility] With [address], [place], [address], 04/29/2019 14:28:47 04/29/2004/29/2019 urina lysis , dipst ick, auto Unknown Analyte Negati ve - Trace Not Available [facility] With [address], [place], [address], 04/29/2019 14:28:47 04/29/2004/29/2019 urina lysis , dipst ick, auto Unknown Analyte >1000 mg/dl Not Available [facility] With [address], [place], [address], 04/29/2019 14:28:47 04/29/20 19 04/29/2019 urina lysis , dipst ick, auto Unknown Analyte Normal Not Available [facility] With [address], [place], [address], 04/29/2019 14:28:47 04/29/2004/29/2019 urina lysis , dipst ick, auto Unknown Analyte Negati ve Not Available [facility] With [address], [place], [address], 04/29/2019 14:28:47 04/29/2004/29/2019 urina lysis , dipst ick, auto Unknown Analyte Negati ve Not Available [facility] With [address], [place], [address], 04/29/2019 14:28:47 04/29/2004/29/2019 urina lysis , dipst ick, auto Unknown Analyte Normal Not Available [facility] With [address], [place], [address], 04/29/2019 14:28:47 04/29/2004/29/2019 urina lysis , dipst ick, auto Unknown Analyte Normal - 1mg/dl Not Available [facility] With [address], [place], [address], 04/29/2019 14:28:47 04/29/2004/29/2019 urina lysis , dipst ick, auto Unknown Analyte Negati ve Not Available [facility] With [address], [place], [address], 04/29/2019 14:28:47 04/29/2004/29/2019 urina lysis , dipst ick, auto Unknown Analyte Negati ve Not Available [facility] With [address], [place], [address], 04/29/2019 14:28:47 04/29/2004/29/2019 urina lysis , dipst ick, auto Unknown Analyte Negati ve Not Available [facility] With [address], [place], [address], 04/29/2019 14:28:47 04/29/20 19 04/29/2019 urina lysis , dipst ick, auto Unknown Analyte Negati ve Not Available [facility] With [address], [place], [address], 04/29/2019 14:28:47 04/29/20 19 04/29/2019 urina lysis , dipst ick, auto Unknown Analyte Clean Catch Not Available [facility] With [address], [place], [address], 04/29/2019 14:28:47 04/29/20 19 04/29/2019 urina lysis , dipst ick, auto Unknown Analyte Automa rock Not Available [facility] With [address], [place], [address], 04/29/2019 14:28:47 04/05/20 19 04/05/2019 XR, hand, 3 or more view [place] [facility] [address] [address] Yolanda leroy Name: JOANNA harper : 1954 [...] moore MD on 019 10:29 AM [id number] [facility] [place] [address], [place], [address], 01/10/2022 03:50:52 05/03/20 19 05/03/2019 nerve condu ction study /EMG, upper extre mity (PROC ) No observ ation record ed. [facility] Sjop [address], [place], [address], 05/04/2019 11:07:20 Result Notes None recorded. Problems No Known Problems Procedures Surgical History Date Name Laterality Status Provider Name and Address Organization Details Recorded Time 05/03/20 19 Electromyography (EMG) with Nerve Conduction Study (NCV) completed Sowmya Parisi (Nicky) [facility] 05/03/2019 14:20:26 04/05/20 19 Injection - Trigger Finger, Ortho completed MEHNAZ BETANCOURT MD [address] [place], [address], [facility] 04/05/2019 09:52:14 Coronary artery graft completed ALISTAIR VEGA PA-C [address] [place], [address], [facility] 05/05/2019 16:19:51 Cholecystectomy completed ALISTAIR VEGA PA-C [address] [place], [address], [facility] 05/05/2019 16:19:45 arthroscopy of knee completed ELENI VEGA PA-C [address] [place], [address], [facility] 05/05/2019 16:20:16 carotid endarterectomy completed ALISTAIR VEGA PA-C [address] [place], [address], [facility] 05/05/2019 16:20:34 extraction of cataract completed ALISTAIR VEGA PA-C [address] [place], [address], [facility] 05/05/2019 16:20:55 Imaging Results None recorded. Procedure Notes None recorded. Medical Equipment None Reported. Allergies Allergen ID Allergen Name Allergen Category Reaction Reaction Severity Criticality Documentation Date Start Date Code Code System Note Provider Name and Address Organization Details Recorded Time 990557 Iodinated contrast media (substanc e) medicatio n Not available Not available Not available 10/07/2018 61408 2003 [facility] 10:21:43 Medications Name Sig Start [...] Updated DateTime 05/03/2019 182.88 cm 42.7 kg/m2 748711.6 g Shauna Andersoner [facility] 05/03/2019 14:41:57 Date Recorded Body height Body mass index (BMI) Body weight Provider Name and Address Organization Details Last Updated DateTime 05/31/2019 182.88 cm 42.7 kg/m2 991926.6 g Becka Thomas [facility] 05/31/2019 14:39:24 Date Recorded Body height Body mass index (BMI) Body weight Systolic And Diastolic Provider Name and Address Organization Details Last Updated DateTime 06/25/2019 182.88 cm 42.7 kg/m2 214310.6 g 138/84 mm[Hg] Sowmya [facility] 06/25/2019 10:14:45 Social History Question Answer Notes LastModified by Organizat ion Details LastModified Time Tobacco Smoking Status Never Smoker Nat farrar [facility] 10/07/2018 10:28:52 What Is Your Level Of Caffeine Consumption? Occasional [email or web address] Information not available 04/05/2019 Which Of Your Hands Is Dominant? Right [email or web address] Information not available 04/05/2019 Marital Status Informatio n not available 04/05/2019 What Was The Date Of Your Most Recent Tobacco Screening? 10/07/2018 Information n ot available 08/24/2019 Sex: Unknown Functional Status Question Answer Note LastModified by Organization D etails LastModified Time What is your level of alcohol consumption? None [email or web address] Information not available 04/05/2019 Are you currently employed? No [email or web address] Information not available 04/05/2019 Mental Status None recorded. Family History Relationship Description Onset Age of this Age Resolved Age Notes LastModified by Organization Details LastModified Time Unspecified Relation Diabetes mellitus [email or web address] Not available 2018 14:19:23 Unspecified Relation Kidney disease [email or web address] Not available 2018 14:19:29 Medical History Condition Response Allergies/Hayfever Y Gout Y Anxiety/Depression N Heart Conditions Y Hernia Y Glaucoma N Hypothyroidism Y COPD N Anesthesia Complications N Heart Attack ([place]) Y Diabetes Y Bleeding Disorder N Arthritis Y Blood Clot N AIDS/HIV N Genetic Disorder N Cancer N Stroke Y Asthma N Blood Thinners Y Alcohol Overuse/Alcohol Abuse N Sleep Apnea Y High Cholesterol Y Liver Disease Y Included as Review of Systems Y Hypertension Y Kidney Disease Y Past Encounters Encounter ID Performer Location Encounter Start Date Encounter Closed Date Diagnosis/Indication Diagnosis SNOMED-CT Code Diagnosis ICD10 Code Diagnosis IMO Codes Diagnosis Note [id number] JOSE ALBERTO IRWIN MD ENDOCRINO LOGY [facility] [place] [address] 10/07/2018 10:01:10 10/07/2018 11:32:51 Benign neoplasm of left adrenal gland 2551555001 01423 D35.02 63-year-ol d male with hypertensi on, [...] e in the care of this patient. [id number] MEHNAZ BETANCOURT MD [facility] [address] [place] [address] 04/05/2019 09:21:31 04/05/2019 10:31:29 Acquired trigger finger 6542180 M65.30 Right small finger, injection performed today Pain in finger 72824157 M79.645 Left index finger, we will obtain x-rays. It might be just severe carpal tunnel syndrome but focal tenderness does not quite make sense with Carpal bowen suzi syndrome 52077749 G56.03 Suspect bilateral carpal tunnel syndrome by history, has nocturnal paresthesi as, History of diabetes. This may be contributi ng to some of his symptoms. [id number] GERHARD KOTHARI MD [facility] [address] [address] 04/29/2019 13:42:04 05/24/2019 09:53:24 Urgent desire to urinate 20530194 R39.15 Benign pro static hyperplasia with outflow obstruction 563401464 N40.1 Recurrent urinary tract infection 973644372 N39.0 [id number] ANTHONY CERDA MD [facility]UROLOGY [facility] [address] [place] [address] 05/03/2019 13:27:51 05/03/2019 15:07:43 Bilateral carpal tunnel syndrome 3067530696 4802990 G56.03 Cervical radiculopathy 59375108 M54.12 Diabetic p eripheral neuropathy 977203468 E11.40 [id number] MEHNAZ BETANCOURT MD [facility] [address] [place] [address] 05/03/2019 14:27:10 05/03/2019 16:47:59 Acquired trigger finger 6331486 M65.30 Right small finger, Seems better with injections Pain in finger 27289907 M79.645 Left thumb MP arthritis, Recommend injection which we will do at the same time as the carpal tunnel release Carpal bowen suzi syndrome 32527157 G56.03 Lateral carpal tunnel syndrome, also peripheral neuropathy and C7 radiculopa thy, recommend left carpal tunnel release [id number] MEHNAZ BETANCOURT MD SURGERY SCHEDULE [address] [place] [address] 05/20/2019 06:15:02 05/20/2019 06:15:36 [id number] ALISTAIR VEGA PA-C [facility] [address] [place] [address] 05/31/2019 14:13:19 05/31/2019 14:56:56 Carpal tunnel syndrome 24179638 G56.03 doing well status post left carpal tunnel release [id number] ALISTAIR VEGA PA-C [facility] [address] [place] [address] 06/25/2019 10:03:16 06/25/2019 10:26:36 Carpal tunnel syndrome 14230696 G56.03 doing well status post left carpal [...] (MEDICARE REPLACEMENT/A DVANTAGE - HMO) Joanna Parham [id number] Joanna Parham Notes Date Note Type Note [...] to discuss EMG results. MEHNAZ BETANCOURT MD [address] [place] [address], [address], [facility] 05/03/2019 15:01:34 05/31/2019 text/html Hand SurgeryRepo rted [...] and ring finger. ALISTAIR VEGA PA-C [address] [place], [address], [facility] 05/31/2019 14:55:50 06/25/2019 text/html Hand SurgeryRepo rted [...] finger locking. ALISTAIR VEGA PA-C [address] [place], [address], [facility] 06/25/2019 13:02:22
--- OUTSIDE RECORDS SUMMARY | 2025-06-19 13:51 | XMS_ITS ---
Care Plan - [facility], [facility] Created on: June 19, 2025 Johnathan Parham : 1955 Sex: Male Author Organization [facility] , [facility] Address [address] [place] [phone] Phone Care Team Providers Care Family Practice Doctor Name Role Phone rTe HEADLEY, Govind Lau Unavailable
--- OUTSIDE RECORDS SUMMARY | 2025-06-19 13:51 | XMS_ITS ---
Author Organization [facility] , [facility] Address [address] [place] [address] Phone Care Team Providers Care Drapery Head Former Name Role Phone Tre HEADLEY, Govind [place] Plan of Treatment No Plan of Treatment Recorded Assessments Includes: Assessments for all patient encounters No Assessments Recorded Medical Equipment - Implanted Devices Includes: Current and historical Devices No Medical Equipment Recorded Medications Administered Includes: Administered Medications in patient's chart No Administered Medications Recorded Results Includes: Results from 06/19/2024 through 06/19/2025 No Results Recorded For Specified Dates Social History Description Last Updated Sex - Male 07/23/2023 Last Documented On 4 11:57AM ; [facility] Smoking Status Unknown Medical History Includes: Medical History in patient's chart No Medical History Recorded Family History Includes: Family History in patient's chart No Family History Recorded Care Drapery Head Former Name (Identifier) Role/Relation Location/Telecom Last Documented By Govind Toledo MD ([id number]) Assigned practitioner (occupation) [address] [place] [address], , [phone] tel: Last Documented On 07/23/2023 11:57AM ; [facility] Payer Includes: Active Insurance Policies Plan Name (Payer ID) Coverage Type Member ID Group # Subscriber (ID) Relationship Effective Dates 1 - [employer] ([id number]) [id number] Johnathan Parham Self Last Documented On 3 7:21AM ; [facility]
--- OUTSIDE RECORDS SUMMARY | 2025-06-19 13:51 | XMS_ITS | Clinical Summary ---
Author Organization [facility] Address [address] [id number] Care Team Providers Care Pickers Material Handlers Name Role Phone Kadie Chen MD Primary Care Provider [phone] Allergies Active Allergy Reactions Criticality Noted Date [...] (03/27/2017): Added automatically from request for surgery [id number] Family History Medical History Relation Name Comments [...] 08/2023, 05/05/2023 Medical Devices Implanted Type Area Photography Colorist Device Identifier Shelf Expiration Date Model / Serial / Lot Linnea Obrien 1x6cm - [id number] Implanted:Qty: 1 on 06/24/2017 by Priyank Law MD at [facility] Implant Right: Carotid [employer] 10/28/2021 [id number] / / [id number] Procedures Procedure Name Priority Date/Time Associated Diagnosis Comments HEMOGLOBIN A1C Routine 2017 2:07 PM EST Stenosis of right carotid artery LIPID PANEL STAT 03/28/2017 7:38 AM EDT from Last 3 Months or Most Recently Relevant to Health Maintenance Results * (ABNORMAL) Hemoglobin A1c (2017 2:07 PM EST) Pathologist [facility] Hemoglobin A1C 7.50(H) 4.80 - 5.60 % 2017 2:47 PM EST [facility] Blood Venipuncture / Unknown 2017 2:07 PM EST 2017 2:21 PM EST Narrative [facility] - 2017 2:47 PM EST The [place] [employer] recommends maintenance of Hemoglobin A1C at 7.0% or lower. Goals for Hemoglobin A1C reduction may need to be modified if hypoglycemia is a problem. us Elzbieta MA LAB BLOOD ORDERABLES Final R esult [facility]
[address] [place] [address], * (ABNORMAL) Lipid Panel (03/28/2017 7:38 AM EDT) Total Cholesterol 141 0 - 200 mg/dL 03/28/2017 8:20 AM EDT [facility] Triglycerides 170(H) 0 - 150 mg/dL 03/28/2017 8:20 AM EDT [facility] HDL Cholesterol 27(L) 40 - 60 mg/dL 03/28/2017 8:20 AM EDT [facility] LDL Cholesterol 104 0 - 130 mg/dL 03/28/2017 8:20 AM EDT [facility] Blood Line / Unknown 03/28/2017 7: 38 AM EDT 03/28/2017 7:57 AM EDT [facility] - 03/28/2017 8:20 AM EDT [...] Rebolledo APRN LAB BLOOD ORDERABLES Final Result [facility]
[address] [place] [address], from Last 3 Months or Most Recently Relevant to Health Maintenance Insurance [id number] Advance Directives * Full Code (Latest Code Status on File) Date Activated Date Inactivated Comments 06/24/2017 12:16 PM 06/25/2017 2:32 PM Care Teams Pickers Material Handlers Relationship Specialty Start Date End Date Kadie Chen MD PCP - General Family Medicine 03/28/17
--- NOTE | 2025-06-19 13:59 | CT_ITS ---
PROCEDURE INFORMATION: Exam: CT Abdomen And Pelvis With Contrast Exam date and time: 06/19/2025 3:21 PM Age: 69 years old Clinical indication: Abdominal pain; Additional info: Llq pain TECHNIQUE: Imaging protocol: Computed tomography of the abdomen and pelvis with contrast. Radiation optimization: All CT scans at this facility use at least one of these dose optimization techniques: automated exposure control; mA and/or kV adjustment per patient size (includes targeted exams where dose is matched to clinical indication); or iterative reconstruction. Contrast material: ISOVUE; Contrast volume: 75 ml; Contrast route: IV; COMPARISON: CT ABDOMEN PELVIS WO/W CON 10/20/2024 7:51 AM FINDINGS: Tubes, catheters and devices: None noted. Lungs: Left lower lobe atelectasis with elevated left hemidiaphragm.. Heart: Moderate coronary calcifications. CABG. No cardiomegaly. No significant pericardial effusion. Liver: Normal. No mass. Gallbladder and biliary ducts: Cholelithiasis. No calcified stones. No ductal dilation. Pancreas: Normal. No ductal dilation. Spleen: Normal. No splenomegaly. Adrenal glands: Normal. No mass. Kidneys and ureters: Stable dorsal right complex cystic mass 8.6 x 7.8 cm. No hydronephrosis. 2 cm solid dorsal left renal midpole mass stable from comparison 10/20/2024. Bosniak 2 F. Stomach and bowel: Unremarkable. No obstruction. No mucosal thickening. Appendix: No evidence of appendicitis. Intraperitoneal space: Unremarkable. No free air. No significant fluid collection. Retroperitoneal space: No significant retroperitoneal inflammatory changes are noted. Vasculature: Unremarkable. No abdominal aortic aneurysm. Lymph nodes: Unremarkable. No enlarged lymph nodes. Urinary bladder: Unremarkable as visualized. Reproductive: Unremarkable as visualized. Bones/joints: Unremarkable. No acute fracture. Soft tissues: Unremarkable. IMPRESSION: 1. 2 cm solid dorsal left renal midpole mass stable from comparison 10/20/2024. Bosniak 2 F. 2. Stable dorsal right complex cystic mass 8.6 x 7.8 cm. 3. Cholelithiasis. 4. Elevated left hemidiaphragm with left basilar atelectasis.
--- NOTE | 2025-06-19 14:12 | ED_ITS ---
Discharge Plan Disposition Patient Disposition: Home, Self-Care Condition: Good Prescriptions Prescriptions: No Action (DME) blood-glucose meter Misc See Rx Instructions .Route Qty: 1 0RF Rx Instructions: As directed (DME) Blood Glucose Test Strip See Rx Instructions .Route Qty: 50 12RF Rx Instructions: As directed trazodone 150 mg tablet 150 mg PO HS PRN (Reason: sleep) Qty: 90 3RF aspirin 81 mg tablet 81 mg PO DAILY Qty: 90 3RF atorvastatin 80 mg tablet See Rx Instructions .ROUTE .COMPLEX Qty: 90 1RF Dose Instruction: Take 1 tablet by mouth once daily Rx Instructions: Take 1 tablet by mouth once daily doxazosin 4 mg tablet 4 mg PO DAILY Qty: 90 1RF finasteride 5 mg tablet See Rx Instructions .ROUTE .COMPLEX Qty: 90 2RF Dose Instruction: Take 1 tablet by mouth once daily Rx Instructions: Take 1 tablet by mouth once daily hydrocodone-acetaminophen 5-325 mg tablet 1 tab PO Q12H PRN (Reason: pain) Qty: 60 0RF levothyroxine 75 mcg tablet See Rx Instructions .ROUTE .COMPLEX Qty: 90 1RF Dose Instruction: Take 1 tablet by mouth once daily Rx Instructions: Take 1 tablet by mouth once daily lisinopril 2.5 mg tablet See Rx Instructions .ROUTE .COMPLEX Qty: 90 1RF Dose Instruction: Take 1 tablet by mouth once daily Rx Instructions: Take 1 tablet by mouth once daily duloxetine 20 mg capsule,delayed release(DR/EC) 20 mg PO DAILY 30 Days Qty: 30 2RF ciprofloxacin HCl 750 mg tablet 750 mg PO Q12H Qty: 30 0RF metronidazole 500 mg tablet 500 mg PO Q6H Qty: 60 0RF omeprazole 40 mg capsule,delayed release(DR/EC) See Rx Instructions .ROUTE .COMPLEX Qty: 90 4RF Dose Instruction: Take 1 capsule by mouth once daily Rx Instructions: Take 1 capsule by mouth once daily clopidogrel 75 mg tablet See Rx Instructions .ROUTE .COMPLEX Qty: 90 3RF Dose Instruction: TAKE 1 TABLET EVERY DAY Rx Instructions: TAKE 1 TABLET EVERY DAY furosemide 40 mg tablet 40 mg PO DAILY PRN (Reason: edema) Qty: 60 0RF Rx Instructions: May take one-two tabs daily as needed. carvedilol 12.5 mg tablet See Rx Instructions .ROUTE .COMPLEX Qty: 180 3RF Dose Instruction: TAKE 1 TABLET TWICE DAILY Rx Instructions: TAKE 1 TABLET TWICE DAILY Referrals Follow up/Referrals: Reuben Haro APRN [Primary Care Provider, Family Practice] - See instructions Activity Restrictions/Add. Instructions Additional Instructions/Restrictions: Follow-up with your primary care provider tomorrow. Return to the emergency department for any acute or worsening symptoms. Clinical Impressions Clinical Impression: Abdominal pain Instructions Patient Instructions: DI for Acute Abdominal Pain Print Language Print Language: Citizen Of [place] Discharge ED Provider: Luis Armando Rucker General Adult HPI <Luis Armando Rucker MD - Last Filed: 06/19/25 15:43> General Chief complaint: Abdominal Pain Stated complaint: abdominal pain Time Seen by Provider: 06/19/25 13:53 Mode of Arrival: Ambulatory Source of Information: Patient and Significant Other Description of Symptoms (Recalled from ER Triage Doc. by RN): mahsa presents for abodminal pain that started friday. mahsa saw his PCP in office and was diagnosed with diverticulitis and sent home with 2 antibiotics but the pharmacy only had one but he rpesents for worsening abdominal pain over hte last 2 days. he reports it mostly on his left side. endorses n/v. pain is rated 8/10. History of Present Illness HPI narrative: Patient has history of prior stroke and is on blood thinners and has history of heart failure and prior [place] he has no history of previous diverticulitis he has no history of kidney stones but does have history of UTI. Related Data Previous Rx's ?Medication ?Instructions ?Recorded omeprazole 40 mg capsule,delayed See Rx Instructions . Route 11/23/24 release .COMPLEX #90 caps clopidogrel 75 mg tablet See Rx Instructions .Route 0 12/20/24 .COMPLEX #90 tabs blood sugar diagnostic (Blood #50 ea 01/03/25 Glucose Test strips) blood-glucose meter #1 ea 01/03/25 trazodone 150 mg tablet 150 mg PO HS PRN sleep #90 t abs 01/03/25 aspirin 81 mg tablet 81 mg PO DAILY #90 tabs 01/05 03/31 furosemide 40 mg tablet 40 mg PO DAILY PRN edema #60 tabs 02/22/25 atorvastatin 80 mg tablet See Rx Instructions .Route 1 08/07/24 .COMPLEX #90 tabs doxazosin 4 mg tablet 4 mg PO DAILY #90 tabs 06/06 duloxetine 20 mg capsule,delayed 20 mg PO DAILY 30 day s #30 caps 06/06/25 release finasteride 5 mg tablet See Rx Instructions .Route 1 08/07/24 .COMPLEX #90 tabs hydrocodone 5 mg-acetaminophen 325 1 tab PO Q12H PRN p ain #60 tabs 06/06/25 mg tablet levothyroxine 75 mcg tablet See Rx Instructions .Route 06/06/25 .COMPLEX #90 tabs lisinopril 2.5 mg tablet See Rx Instructions .Route 1 08/07/24 .COMPLEX #90 tabs carvedilol 12.5 mg tablet See Rx Instructions .Route 1 08/14/24 .COMPLEX #180 tabs ciprofloxacin HCl 750 mg tablet 750 mg PO Q12H #30 tab s 06/17/25 metronidazole 500 mg tablet 500 mg PO Q6H #60 tabs 06/30 Allergies Allergy/AdvReac Type Severity Reaction Status Date / Time ertapenem Allergy Severe Hallucinati Verified 06/17/25 13:52 ng PFS <Luis Armando Rucker MD - Last Filed: 06/19/25 15:43> PFS Disclaimer: The information contained in this section may have been updated after the patient was seen, as this information can be updated by other users. Medical History (Updated 06/19/25 @ 17:48 by Lesvia Moya DO) Diverticulitis Abnormal ECG CVA (cerebral vascular accident) Screening for colon cancer History of stent insertion of renal artery Septic arthritis of knee, left Renal mass, left Left adrenal mass Renal mass, right Unsteadiness on feet DANY (obstructive sleep apnea) LUKASZ (renal artery stenosis) Right sided weakness Angina pectoris Hearing loss Cataract History of transient ischemic attack (TIA) Cyst of soft tissue Carotid artery stenosis Left hip pain Neuropathy Sciatic leg pain Surgical History Hx of CABG History of hernia repair Hx of heart artery stent History of cholecystectomy History of colonoscopy Family History Other Family history of acute congestive heart failure Social History Smoking Status: Never smoker alcohol intake: never substance use type: denies use current occupational status: other Travel in the last 8 weeks?: None household members: family housing: house current occupational exposures/hazards: No caffeine: Yes Have you lived/traveled outside [place] in past 30 days?: No Contact w/someone who lives/traveled outside US past 30 days?: No Exposure to someone with infectious disease in past 14 days?: No Do you have a fever (greater than 100.4 F or 38 C)?: No Have you tested positive for COVID-19?: No Exposed to someone with COVID-19 in past 14 days?: No Do you have a sore throat?: No Do you have a cough?: No Do you have any weakness?: No Do you have any diarrhea?: No Are you experiencing any unusual bleeding?: No Do you have any muscle aches/pain?: No Do you have any abdominal pain?: No Are you experiencing loss of taste or smell?: No Other Medical History Have you received the Flu Vaccine for this season: No Have you received the Pneumonia Vaccine: No <Luis Armando Rucker MD - Last Filed: 06/19/25 15:43> ROS Obtained: Yes Systems reviewed as appropriate & no additional complaints except as documented Physical Exam <Luis Armando Rucker MD - Last Filed: 06/19/25 15:43> General General appearance: alert Head Head exam: atraumatic Eye Eye exam: Present normal appearance ENT ENT exam: Present normal exam Neck Neck exam: Present normal inspection Chest Chest inspection: Present normal inspection Respiratory Respiratory exam: Present other (Nonlabored on room air) Cardiovascular Cardiovascular exam: Present regular rate Abdominal Exam Abdominal exam: Present tenderness (Left lower quadrant) Extremities Exam Extremities exam: Present normal inspection Neurological Exam Neurological exam: Present alert and oriented X3 Psychiatric Psychiatric exam: Present normal affect Skin Skin exam: Present warm Medical Decision Making <Luis Armando Rucker MD - Last Filed: 06/19/25 15:43> Medical Records Screening: Per USPSTF and CDC recommendations, given the prevalence of disease in our region, it is our hospital?s policy to screen for HIV and viral Hepatitis for all patients aged 18 and over and those with ongoing risk factors. [place] Inquiry Pt receiving controlled substance: No Vital Signs: 06/19/25 13:53 06/19/25 13:54 06/19/25 14:23 Temperature 98.7 F Temperature Source Oral Pulse Rate 90 77 Pulse Rate [Right Radial] 89 Respiratory Rate 20 Blood Pressure 143/78 H 156/71 H Blood Pressure [Right Arm] 143/78 H Blood Pressure Mean [Right Arm] 99 Blood Pressure Source [Right Arm] Automatic Cuff Blood Pressure Position [Right Arm] Sitting 02 Sat by Pulse Oximetry 98 97 99 Oxygen Delivery Method Room Air Room Air Room Air 06/19/25 14:31 06/19/25 15:00 06/19/25 15:30 Temperature Temperature Source Pulse Rate 76 73 76 Pulse Rate [Right Radial] Respiratory Rate Blood Pressure 127/58 L 130/69 144/62 H Blood Pressure [Right Arm] Blood Pressure Mean [Right Arm] Blood Pressure Source [Right Arm] Blood Pressure Position [Right Arm] 02 Sat by Pulse Oximetry 97 97 97 Oxygen Delivery Method Room Air Room Air Room Air 06/19/25 16:00 06/19/25 16:30 06/19/25 17:00 Temperature Temperature Source Pulse Rate 69 77 79 Pulse Rate [Right Radial] Respiratory Rate Blood Pressure 143/68 H 142/73 H 163/79 H Blood Pressure [Right Arm] Blood Pressure Mean [Right Arm] Blood Pressure Source [Right Arm] Blood Pressure Position [Right Arm] 02 Sat by Pulse Oximetry 97 98 98 Oxygen Delivery Method Room Air Room Air Room Air 06/19/25 17:30 06/19/25 17:56 Temperature 98.3 F Temperature Source Pulse Rate 71 70 Pulse Rate [Right Radial] Respiratory Rate 16 Blood Pressure 159/86 H 159/86 H Blood Pressure [Right Arm] Blood Pressure Mean [Right Arm] Blood Pressure Source [Right Arm] Blood Pressure Position [Right Arm] 02 Sat by Pulse Oximetry 97 Oxygen Delivery Method Room Air Lab Data Lab Results 06/19/25 14:14: WBC 5.6, RBC 3.65 L, Hgb 10.6 L, Hct 34.3 L, MCV 94.0, MCH 29.0, MCHC 30.9 L, RDW 16.2, Plt Count 188, MPV 10.5 H, Neut % (Auto) 74.6, Lymph % (Auto) 16.8, [place] % (Auto) 5.9, Eos % (Auto) 1.8, Baso % (Auto) 0.5, Neut # (Auto) 4.2, Lymph # (Auto) 0.9, [place] # (Auto) 0.3, Eos # (Auto) 0.1, Baso # (Auto) 0.0, Sodium 135 L, Potassium 4.3, Chloride 107, Carbon Dioxide 25, Anion Gap 7.3, BUN 23 H, Creatinine 1.90 H, Estimated Creat Clear 62, Estimated GFR 36 L, Est GFR ( Amer) 43 L, Glucose 164 H, Calcium 8.5, Magnesium 1.9, Total Bilirubin 0.8, AST 32, ALT 19, Alkaline Phosphatase 98, Total Protein 7.2, Albumin 3.9, Globulin 3.3 H, Albumin/Globulin Ratio 1.2 06/19/25 15:31: Urine Color Yellow, Urine Appearance Clear, Urine pH 6.0, Ur Specific [place] 1.015, Urine Protein Trace, Urine Glucose (UA) Negative, Urine Ketones Negative, Urine Blood Trace-i, Urine Nitrate Negative, Urine Bilirubin Negative, Urine Urobilinogen 0.2, Ur Leukocyte Esterase Negative, Urine RBC Occasional, Urine WBC 3-5, Ur Squamous Epith Cells 5-10, Urine Bacteria Trace 06/19/25 14:14 06/19/25 14:14 Orders (Tests/Meds): ED MEDICATIONS Discontinued Medications Generic Name Dose Route Start Last Admin Trade Name Arnoldq PRN Reason Stop Dose Admin Acetaminophen 1,000 mg 06/19/25 16:56 06/19/25 17:12 Acetaminophen 500mg Tab PO 06/19/25 16:57 1,000 mg ONCE ONE Administration Dicyclomine HCl 20 mg 06/19/25 16:56 06/19/25 17:12 Dicyclomine 10mg Capsule PO 06/19/25 16:57 20 mg ONCE ONE Administration Iopamidol 75 ml 06/19/25 15:21 06/19/25 15:23 Iopamidol-370 (76%);100ml Bottle IV 06/19/25 15:22 75 ml ONCE ONE Administration Ketorolac Tromethamine 30 mg 06/19/25 16:56 06/19/25 17:13 Ketorolac 30mg/Ml Vial IV 06/19/25 16:57 30 mg ONCE ONE Administration Morphine Sulfate 4 mg 06/19/25 14:01 06/19/25 14:18 Morphine 4mg/Ml Syringe IV 06/19/25 14:02 4 mg ONCE ONE Administration Morphine Sulfate 4 mg 06/19/25 16:56 06/19/25 17:13 Morphine 4mg/Ml Syringe IV 06/19/25 16:57 4 mg ONCE ONE Administration Ondansetron HCl 4 mg 06/19/25 14:01 06/19/25 14:18 Ondansetron 4mg/2ml Vial IV 06/19/25 14:02 4 mg ONCE ONE Administration Sodium Chloride 10 ml 06/19/25 15:21 06/19/25 15:22 Sodium Chloride 0.9% 10ml Syr (Rad Only) IV 06/19/25 15:22 10 ml ONCE ONE Administration ORDERS Category Date Time Status CT abdomen pelvis w con Stat Cat Scan 06/19/25 13:59 Completed CBC w/Auto Diff [Complete Blood Count Auto Diff] Stat Lab 06/19/25 14:14 Completed CMP [Comprehensive Metabolic Panel] Stat Lab 06/19/25 14:14 Completed Magnesium Stat Lab 06/19/25 14:14 Completed UA [Urinalysis and Microscopic] Stat Lab 06/19/25 15:31 Completed Urine Culture Stat Micro 06/19/25 15:31 Received Medical Decision Narrative: Labs were notable for no significant leukocytosis or worsening anemia, no significant change in renal function CKD at baseline. CT results pending at time of signout to Dr. Moya. Reviewed urinalysis as well from 2 days ago which is negative for any sign of infection. <Lesvia Moya, DO - Last Filed: 06/19/25 23:27> Medical Records Medical records reviewed: Yes I reviewed the patient's medical records. Vital Signs: 06/19/25 13:53 06/19/25 13:54 06/19/25 14:23 Temperature 98.7 F Temperature Source Oral Pulse Rate 90 77 Pulse Rate [Right Radial] 89 Respiratory Rate 20 Blood Pressure 143/78 H 156/71 H Blood Pressure [Right Arm] 143/78 H Blood Pressure Mean [Right Arm] 99 Blood Pressure Source [Right Arm] Automatic Cuff Blood Pressure Position [Right Arm] Sitting 02 Sat by Pulse Oximetry 98 97 99 Oxygen Delivery Method Room Air Room Air Room Air 06/19/25 14:31 06/19/25 15:00 06/19/25 15:30 Temperature Temperature Source Pulse Rate 76 73 76 Pulse Rate [Right Radial] Respiratory Rate Blood Pressure 127/58 L 130/69 144/62 H Blood Pressure [Right Arm] Blood Pressure Mean [Right Arm] Blood Pressure Source [Right Arm] Blood Pressure Position [Right Arm] 02 Sat by Pulse Oximetry 97 97 97 Oxygen Delivery Method Room Air Room Air Room Air 06/19/25 16:00 06/19/25 16:30 06/19/25 17:00 Temperature Temperature Source Pulse Rate 69 77 79 Pulse Rate [Right Radial] Respiratory Rate Blood Pressure 143/68 H 142/73 H 163/79 H Blood Pressure [Right Arm] Blood Pressure Mean [Right Arm] Blood Pressure Source [Right Arm] Blood Pressure Position [Right Arm] 02 Sat by Pulse Oximetry 97 98 98 Oxygen Delivery Method Room Air Room Air Room Air 06/19/25 17:30 06/19/25 17:56 Temperature 98.3 F Temperature Source Pulse Rate 71 70 Pulse Rate [Right Radial] Respiratory Rate 16 Blood Pressure 159/86 H 159/86 H Blood Pressure [Right Arm] Blood Pressure Mean [Right Arm] Blood Pressure Source [Right Arm] Blood Pressure Position [Right Arm] 02 Sat by Pulse Oximetry 97 Oxygen Delivery Method Room Air Lab Data Lab results reviewed: Yes I reviewed the patient's lab results. Lab Results 06/19/25 14:14: WBC 5.6, RBC 3.65 L, Hgb 10.6 L, Hct 34.3 L, MCV 94.0, MCH 29.0, MCHC 30.9 L, RDW 16.2, Plt Count 188, MPV 10.5 H, Neut % (Auto) 74.6, Lymph % (Auto) 16.8, [place] % (Auto) 5.9, Eos % (Auto) 1.8, Baso % (Auto) 0.5, Neut # (Auto) 4.2, Lymph # (Auto) 0.9, [place] # (Auto) 0.3, Eos # (Auto) 0.1, Baso # (Auto) 0.0, Sodium 135 L, Potassium 4.3, Chloride 107, Carbon Dioxide 25, Anion Gap 7.3, BUN 23 H, Creatinine 1.90 H, Estimated Creat Clear 62, Estimated GFR 36 L, Est GFR ( Amer) 43 L, Glucose 164 H, Calcium 8.5, Magnesium 1.9, Total Bilirubin 0.8, AST 32, ALT 19, Alkaline Phosphatase 98, Total Protein 7.2, Albumin 3.9, Globulin 3.3 H, Albumin/Globulin Ratio 1.2 06/19/25 15:31: Urine Color Yellow, Urine Appearance Clear, Urine pH 6.0, Ur Specific [place] 1.015, Urine Protein Trace, Urine Glucose (UA) Negative, Urine Ketones Negative, Urine Blood Trace-i, Urine Nitrate Negative, Urine Bilirubin Negative, Urine Urobilinogen 0.2, Ur Leukocyte Esterase Negative, Urine RBC Occasional, Urine WBC 3-5, Ur Squamous Epith Cells 5-10, Urine Bacteria Trace Orders (Tests/Meds): ED MEDICATIONS Discontinued Medications Generic Name Dose Route Start Last Admin Trade Name Mary PRN Reason Stop Dose Admin Acetaminophen 1,000 mg 06/19/25 16:56 06/19/25 17:12 Acetaminophen 500mg Tab PO 06/19/25 16:57 1,000 mg ONCE ONE Administration Dicyclomine HCl 20 mg 06/19/25 16:56 06/19/25 17:12 Dicyclomine 10mg Capsule PO 06/19/25 16:57 20 mg ONCE ONE Administration Iopamidol 75 ml 06/19/25 15:21 06/19/25 15:23 Iopamidol-370 (76%);100ml Bottle IV 06/19/25 15:22 75 ml ONCE ONE Administration Ketorolac Tromethamine 30 mg 06/19/25 16:56 06/19/25 17:13 Ketorolac 30mg/Ml Vial IV 06/19/25 16:57 30 mg ONCE ONE Administration Morphine Sulfate 4 mg 06/19/25 14:01 06/19/25 14:18 Morphine 4mg/Ml Syringe IV 06/19/25 14:02 4 mg ONCE ONE Administration Morphine Sulfate 4 mg 06/19/25 16:56 06/19/25 17:13 Morphine 4mg/Ml Syringe IV 06/19/25 16:57 4 mg ONCE ONE Administration Ondansetron HCl 4 mg 06/19/25 14:01 06/19/25 14:18 Ondansetron 4mg/2ml Vial IV 06/19/25 14:02 4 mg ONCE ONE Administration Sodium Chloride 10 ml 06/19/25 15:21 06/19/25 15:22 Sodium Chloride 0.9% 10ml Syr (Rad Only) IV 06/19/25 15:22 10 ml ONCE ONE Administration ORDERS Category Date Time Status CT abdomen pelvis w con Stat Cat Scan 06/19/25 13:59 Completed CBC w/Auto Diff [Complete Blood Count Auto Diff] Stat Lab 06/19/25 14:14 Completed CMP [Comprehensive Metabolic Panel] Stat Lab 06/19/25 14:14 Completed Magnesium Stat Lab 06/19/25 14:14 Completed UA [Urinalysis and Microscopic] Stat Lab 06/19/25 15:31 Completed Urine Culture Stat Micro 06/19/25 15:31 Received Medical Decision Narrative: Labs were notable for no significant leukocytosis or worsening anemia, no significant change in renal function CKD at baseline. CT results pending at time of signout to Dr. Moya. Reviewed urinalysis as well from 2 days ago which is negative for any sign of infection. Lesvia Moya DO Patient's labs were reviewed and interpreted by myself: CBC showed no leukocytosis, hemoglobin was stable. CMP was unremarkable. UA showed no evidence of infection. CT scan of the abdomen was reviewed and interpreted by myself and per radiology had no acute findings. Patient has already been on Levaquin for 3 days therefore patient could potentially have a partially treated diverticulitis given that patient's pain is in the left lower quadrant and patient has had previous diverticulitis before. I discussed with the patient that he should continue taking the antibiotics as prescribed follow-up with his primary care provider as scheduled tomorrow and patient was given return precautions. Patient was otherwise discharged home in stable condition. Patient did have some incidental findings on his CT scan which were reviewed with the patient and he was advised to follow-up with his primary care provider for these. Critical Care <Luis Armando Rucker MD - Last Filed: 06/19/25 15:43> Critical Care Time Critical Care Time: No
[2025-06-19] MEDS: MORPHINE 4MG/ML SYRINGE 4 MG IV ×2 (14:18→17:13)
[2025-06-19] MEDS: ONDANSETRON 4MG/2ML VIAL 4 MG IV (14:18)
[2025-06-19 14:29] LABS: Hematocrit 34.3 % (42.0-52.0); Hemoglobin 10.6 g/dL (14.1-18.0); Immature Granulocytes % 0.4 %; Mean Corpuscular HGB Conc 30.9 g/dL (31.8-35.4); Mean Corpuscular Hemoglobin 29.0 pg (27.0-31.2); Mean Corpuscular Volume 94.0 fl (80-94); Nucleated Red Blood Cells % 0 %; Platelet Count 188 K/mm3 (142-424); Red Blood Count 3.65 M/mm3 (4.60-6.20); Red Cell Distribution Width-SD 55.7 fL; White Blood Count 5.6 K/mm3 (4.8-10.8)
[2025-06-19 14:41] LABS: Albumin Level 3.9 g/dl (3.5-5.0); Chloride 107 mmol/L (98-107)
[2025-06-19 14:42] LABS: Potassium 4.3 mmoL/L (3.5-5.1); Sodium 135 mmol/L (136-145)
[2025-06-19 14:44] LABS: Alanine Aminotransferase 19 U/L (12-78); Anion Gap 7.3 mEq/L (5-15); Aspartate Amino Transferase 32 U/L (17-59); Blood Urea Nitrogen 23 mg/dl (9-20); Carbon Dioxide 25 mmol/L (22.0-30.0); Creatinine Clearance Estimated 62 mL/min (50-200); Creatinine,Serum 1.90 mg/dl (0.66-1.25); Estimated Glomerular Filt Rate 36 ml/min (>60); GFR (African American) 43 ML/MIN (>60)
[2025-06-19 14:45] LABS: Albumin/Globulin Ratio 1.2 (1.1-1.8); Alkaline Phosphatase 98 U/L (38-126); Bilirubin,Total 0.8 mg/dl (0.2-1.3); Calcium 8.5 mg/dl (8.4-10.2); Globulin 3.3 g/dL (1.3-3.2); Glucose 164 mg/dl (74-100); Magnesium 1.9 mg/dl (1.6-2.3); Total Protein,Serum 7.2 g/dl (6.3-8.2)
[2025-06-19] MEDS: SODIUM CHLORIDE 0.9% 10ML SYR (RAD ONLY) 10 ML IV (15:22)
[2025-06-19] MEDS: IOPAMIDOL-370 (76%);100ML BOTTLE 75 ML IV (15:23)
[2025-06-19 15:37] LABS: Microscopic, Urine URINE MICROSCOPIC (MICROSCOPIC)
[2025-06-19 15:41] LABS: Bilirubin,Urine Negative (Negative); Color,Urine YELLOW (Yellow); Glucose,Urine (UA) Negative (Negative); Ketones,Urine Negative (Negative); Leukocyte Esterase,Urine Negative (Negative); PH,Urine 6.0 (5.0-8.5); Protein,Urine TRACE (Negative); Specific Gravity, Urine 1.015 (1.005-1.030); Urobilinogen,Urine 0.2 EU/dl (0.2)
[2025-06-19 16:04] LABS: Bacteria,Urine Trace /lpf; RBC,Urine Occasional #/hpf (0-3)
[2025-06-19] MEDS: ACETAMINOPHEN 500MG TAB 1000 MG PO (17:12)
[2025-06-19] MEDS: KETOROLAC 30MG/ML VIAL 30 MG IV (17:13)
== END 2025-06-19 17:59 | disposition home or self-care (01) ==
PROVIDERS: Emergency Provider Student in an Organized Health Care Education/Training Program; PCP Nurse Practitioner Family
DX: R10.32 Left lower quadrant pain (principal)
CPT/HCPCS: 74177; 80053; 81001; 83735; 85025; 87086; 96374; 96375; 96376; 99285; J1885; J2270; J2405; Q9967